=== PATIENT | female | born 1930 | race Caucasian/White ===

== ENCOUNTER 2017-04-10 11:40 | Inpatient (IN) | payer OTHER, BC ==
[2017-04-10 11:52] VITALS: BMI 26.5
[2017-04-10] MEDS ORDERED: SODIUM CHLORIDE 0.9% 1000 ML INFUS.BAG IV STA (11:52)
[2017-04-10] MEDS ORDERED: ACETAMINOPHEN 325 MG TABLET (FP) PO ONE (11:54)
[2017-04-10] MEDS ORDERED: ALBUTEROL SO4 2.5/IPRATROPIUM 0.5 INH SOL 3 ML VIAL.NEB. NEB ONE ×2 (11:55→12:03)
[2017-04-10] MEDS ORDERED: ACETAMINOPHEN 325 MG TABLET (FP) ONE (12:03)
--- NOTE | 2017-04-10 12:43 | PDOC ---
History of Present Illness <Pavan Cali - Last Filed: 04/10/17 14:18> - General History Source: Patient Exam Limitations: No Limitations - History of Present Illness Initial Comments: 04/10/17 12:39 87 yo F with /o HTN, HLD, here with son c/o cough x one week. pt states has had nausea, no vomiting. no f/c no mod factors. cough productive phlegm. subjective fevers, no chills. no change to stool. no cp no leg swelling. no h/o tobacco use. no recent admissions to hospital. no chest pain. <Brandy Crouch - Last Filed: 04/10/17 15:44> - General Chief Complaint: Respiratory Stated Complaint: COUGH Time Seen by Provider: 04/10/17 11:46 Past History <Pavan Cali - Last Filed: 04/10/17 14:18> - Past Medical History HTN: Yes Hypercholesterolemia: Yes Other medical history: GLAUCOMA, GOUT, CROW - Psycho/Social/Smoking Cessation Hx Anxiety: No Suicidal Ideation: No Smoking History: Never smoked Have you smoked in the past 12 months: No Information on smoking cessation initiated: No Hx Alcohol Use: No Drug/Substance Use Hx: No Substance Use Type: None <Brandy Crouch - Last Filed: 04/10/17 15:44> - Past Medical History Allergies/Adverse Reactions: Allergies Allergy/AdvReac Type Severity Reaction Status Date / Time amoxicillin Allergy Verified 04/10/17 11:42 Home Medications: Ambulatory Orders Allopurinol [Zyloprim -] 100 mg PO DAILY 04/10/17 Amlodipine Besylate 5 mg PO DAILY 04/10/17 Aspirin [Aspirin EC] 81 mg PO DAILY 04/10/17 Ropinirole HCl [Requip] 1 mg PO DAILY 04/10/17 Simvastatin 20 mg PO DAILY 04/10/17 Timolol 0.5% [Timoptic 0.5%] 1 drop OU BID 04/10/17 Valsartan [Diovan] 160 mg PO DAILY 04/10/17 Review of Systems - Review of Systems Constitutional: Yes: Chills, Fever Respiratory: Yes: Cough, Shortness of Breath, Wheezing, Productive cough Cardiac (ROS): No: Chest Pain, Edema Musculoskeletal: No: Joint Pain, Neck Pain Hematologic/Lymphatic: Yes: Anemia All Other Systems: Reviewed and Negative <Brandy Crouch - Last Filed: 04/10/17 15:44> *Physical Exam - Vital Signs Last Vital Signs Temp Pulse Resp BP Pulse Ox 100.6 F H 118 H 24 98/61 98 04/10/17 11:40 04/10/17 14:00 04/10/17 14:00 04/10/17 14:00 04/10/17 14:00 <Pavan Cali - Last Filed: 04/10/17 14:18> - Vital Signs Last Vital Signs Temp Pulse Resp BP Pulse Ox 100.6 F H 142 H 30 H 118/88 94 L 04/10/17 11:40 04/10/17 11:40 04/10/17 11:40 04/10/17 12:00 04/10/17 11:40 - Physical Exam General Appearance: Yes: Appropriately Dressed HEENT: positive: Normal ENT Inspection Neck: positive: Trachea midline Respiratory/Chest: positive: Crackles (bilat expiratory wheezing, crackles at left base greater. ), Wheezing Cardiovascular: positive: Regular Rhythm, Regular Rate, S1, S2, Tachycardia Gastrointestinal/Abdominal: positive: Normal Bowel Sounds, Flat, Soft. negative : Tender Extremity: positive: Normal Capillary Refill, Normal Inspection Integumentary: positive: Normal Color, Dry, Warm Neurologic: positive: Fully Oriented, Alert, Normal Mood/Affect <MikoBrandy - Last Filed: 04/10/17 15:44> ED Treatment Course - LABORATORY CBC & Chemistry Diagram: 04/10/17 11:45 04/10/17 11:45 - ADDITIONAL ORDERS Additional order review: Laboratory Results 04/10/17 04/10/17 04/10/17 13:16 12:30 11:45 INR PTT (Actin FS) VBG pH 7.36 POC VBG pCO2 47.9 POC VBG pO2 42.7 Mixed VBG HCO3 26.4 H Sodium Potassium Chloride Carbon Dioxide Anion Gap BUN Creatinine Creat Clearance w eGFR Random Glucose Lactic Acid Calcium Total Bilirubin AST ALT Alkaline Phosphatase Creatine Kinase 79 Troponin I 0.08 Total Protein Albumin Urine Color Yellow Urine Appearance Slightly Urine pH 5.0 Ur Specific [place] 1.025 Urine Protein 3+ H Urine Glucose (UA) Negative Urine Ketones Trace Urine Blood Trace-intact Urine Nitrite Negative Urine Bilirubin 1+ H Urine Urobilinogen 1.0 e.u/dl Ur Leukocyte Esterase Negative Urine RBC 3-5 Urine WBC 3-5 Ur Epithelial Cells 5-10 Amorphous Urates Moderate Hyaline Casts 0-1 04/10/17 04/10/17 04/10/17 11:45 11:45 11:45 INR 1.07 PTT (Actin FS) 27.1 VBG pH POC VBG pCO2 POC VBG pO2 Mixed VBG HCO3 Sodium 138 Potassium 4.1 Chloride 101 Carbon Dioxide 24 Anion Gap 13 BUN 29 H D Creatinine 2.0 H D Creat Clearance w eGFR 23.51 Random Glucose 219 H D Lactic Acid 1.9 Calcium 9.2 Total Bilirubin 0.8 D AST 39 D ALT 31 D Alkaline Phosphatase 80 D Creatine Kinase Troponin I Total Protein 6.8 Albumin 3.3 L Urine Color Urine Appearance Urine pH Ur Specific [place] Urine Protein Urine Glucose (UA) Urine Ketones Urine Blood Urine Nitrite Urine Bilirubin Urine Urobilinogen Ur Leukocyte Esterase Urine RBC Urine WBC Ur Epithelial Cells Amorphous Urates Hyaline Casts 04/10/17 11:45 RBC 4.39 MCV 82.8 MCHC 32.8 RDW 13.9 D MPV 8.6 D Neutrophils % Y Lymphocytes % Y - Medications Given in the ED: ED Medications Discontinued Medications Generic Name Dose Route Start Last Admin Trade Name Freq PRN Reason Stop Dose Admin Acetaminophen 650 mg 04/10/17 11:54 04/10/17 12:00 Tylenol - PO 04/10/17 11:55 650 mg ONCE ONE Administration Albuterol/Ipratropium 1 amp 04/10/17 11:55 04/10/17 12:00 Duoneb - NEB 04/10/17 11:56 1 amp ONCE ONE Administration Diltiazem HCl 15 mg 04/10/17 14:11 04/10/17 13:52 Cardizem Injection - IVPUSH 04/10/17 14:12 15 mg ONCE ONE Administration Sodium Chloride 1,315 ml 04/10/17 11:52 04/10/17 12:00 Normal Saline - IV 04/10/17 11:53 1,315 ml ONCE STA Administration Sodium Chloride 1,000 ml 04/10/17 14:11 04/10/17 14:02 Normal Saline - IV 04/10/17 14:12 1,000 ml ONCE ONE Administration Pavan Castro - Last Filed: 04/10/17 14:18> - LABORATORY CBC & Chemistry Diagram: 04/10/17 11:45 04/10/17 11:45 - RADIOLOGY Radiology Studies Ordered: Category Date Time Status CHEST X-RAY PORTABLE* [RAD] Stat Radiology 04/10/17 11:52 Ordered - Medications Given in the ED: ED Medications Discontinued Medications Generic Name Dose Route Start Last Admin Trade Name Freq PRN Reason Stop Dose Admin Acetaminophen 650 mg 04/10/17 11:54 04/10/17 12:00 Tylenol - PO 04/10/17 11:55 650 mg ONCE ONE Administration Albuterol/Ipratropium 1 amp 04/10/17 11:55 04/10/17 12:00 Duoneb - NEB 04/10/17 11:56 1 amp ONCE ONE Administration Sodium Chloride 1,315 ml 04/10/17 11:52 04/10/17 12:00 Normal Saline - IV 04/10/17 11:53 1,315 ml ONCE STA Administration <Brandy Crouch - Last Filed: 04/10/17 15:44> Medical Decision Making - Medical Decision Making 04/10/17 14:19 Dr. Mami Pascual was called regarding the patient at 2:15pm. Dr. Duglas Blanco covering [phone] <Pavan Cali - Last Filed: 04/10/17 14:18> - Medical Decision Making 04/10/17 12:53 87 yo F with h/o HTN, HLD anemia here with cough congestion and wheezing crackles on exam. differential sepsis. pna, bronchitis, effusion, kelli ekg labs trop cultures duoneb. iv hydration, ekg. will require admission. 04/10/17 15:43 d?W dr. eubanks, pt will be transferred for admission wtih afib with RVR, sepsis, pna, kassandra. <Brandy Crouch - Last Filed: 04/10/17 15:44> *DC/Admit/Observation/Transfer <Pavan Cali - Last Filed: 04/10/17 14:18> - Discharge Dispostion Admit: Yes <Brandy Crouch - Last Filed: 04/10/17 15:44> Diagnosis at time of Disposition: Sepsis, Pneumonia, Atrial fibrillation with RVR - Discharge Dispostion Disposition: TRANSFER ACUTE CARE/OTHER HOSP Condition at time of disposition: Stable - Referrals Referrals: Mami Ku MD [Primary Care Provider] -
[2017-04-10 12:57] LABS: ACTIVATED PTT 27.1 SECONDS (24.0-38.9)
[2017-04-10 13:00] LABS: ALBUMIN 3.3 g/dl (3.5-5.0); BILIRUBIN,TOTAL 0.8 mg/dl (0.2-1.0); CALCIUM 9.2 mg/dl (8.4-10.2); COCKROFT - GAULT 20.1875; TOT PROT 6.8 g/dl (6.4-8.3)
[2017-04-10 13:01] LABS: INR 1.07 (0.82-1.09)
[2017-04-10 13:17] LABS: MCH 27.2 pg (25.7-33.7); MCHC 32.8 g/dl (32.0-36.0); MEAN CELL VOLUME 82.8 fl (80-96); MEAN PLT VOLUME 8.6 fl (7.5-11.1); RDW 13.9 % (11.6-15.6); WHITE BLOOD COUNT 15.8 K/mm3 (4.0-10.8)
[2017-04-10 13:18] LABS: PLATELET COUNT 460 K/MM3 (134-434)
[2017-04-10 13:19] LABS: VENOUS BLOOD GAS HCO3 26.4 meq/L (19-25); VENOUS PH 7.36 (7.32-7.42)
[2017-04-10 13:23] LABS: URINE APPEARANCE Slightly; URINE BILIRUBIN 1+ (NEGATIVE); URINE BLOOD Trace-intact (NEGATIVE); URINE COLOR YELLOW; URINE GLUCOSE (UA) Negative (NEGATIVE); URINE KETONE Trace (NEGATIVE); URINE LEUK ESTERASE Negative (NEGATIVE); URINE NITRITE Negative (NEGATIVE); URINE PROTEIN 3+ (NEGATIVE); URINE UROBILINOGEN 1.0 E.U/dl (0.2-1.0)
[2017-04-10] MEDS ORDERED: LEVOFLOXACIN 750 MG IVPB 150 ML IVPB ONE ×2 (13:26→13:28)
[2017-04-10 13:34] LABS: TROPONIN I (DFP) 0.08 ng/ml (0.03-0.50)
[2017-04-10 13:48] LABS: URINE HYALINE CAST 0-1 /lpf
[2017-04-10] MEDS ORDERED: dilTIAZem HCL 50 MG/10 ML - 10 ML VIAL ONE (13:49)
[2017-04-10] MEDS ORDERED: dilTIAZem HCL 50 MG/10 ML - 10 ML VIAL IVPUSH ONE ×2 (14:11→15:40)
[2017-04-10] MEDS ORDERED: SODIUM CHLORIDE 0.9% 1000 ML INFUS.BAG IV ONE (14:11)
[2017-04-10 14:36] LABS: PLATELET ESTIMATE SLT INCREASED (NORMAL)
[2017-04-10] MEDS ORDERED: HEPARIN NA (PORCINE) 5,000 UNITS/ML 1ML VIAL IVPUSH PRN (16:53)
[2017-04-10] MEDS: HEPARIN NA (PORCINE) 5,000 UNITS/ML 1ML VIAL IVPUSH PRN (17:00)
[2017-04-10] MEDS ORDERED: HEPARIN INFUSION - 500 ML IVPB SCH (17:00)
[2017-04-10] MEDS ORDERED: HEPARIN NA (PORCINE) 5,000 UNITS/ML 1ML VIAL ONE (17:02)
[2017-04-10] MEDS ORDERED: HEPARIN INFUSION - 500 ML IVPB ONE (17:02)
--- NOTE | 2017-04-10 19:29 | PN ---
<Alda Hannah - Last Filed: 04/10/17 19:29> Teaching Attending Note Name of Resident: Cb Evans ATTENDING PHYSICIAN STATEMENT I saw and evaluated the patient. I reviewed the resident's note and discussed the case with the resident. I agree with the resident's findings and plan as documented. SUBJECTIVE: OBJECTIVE: ASSESSMENT AND PLAN: <Caryn Pearce - Last Filed: 04/11/17 04:06> Teaching Attending Note ATTENDING PHYSICIAN STATEMENT I saw and evaluated the patient. I reviewed the resident's note and discussed the case with the resident. I agree with the resident's findings and plan as documented. SUBJECTIVE: 87 yo F with a PMHx of HTN, HLD who presents with cough Patient denies fevers and chills. Denies chest pain or chest pressure. Cough with clear sputum for one week. Immunizations are up to date. Rhinorrhea, hoarse voice, increased sob for last week particularly on exertion. Upon evaluation in the ED patient was found to have AFIB. OBJECTIVE: Last Vital Signs Temp Pulse Resp BP Pulse Ox 98.3 F 99 H 18 122/58 97 04/11/17 02:03 04/11/17 02:03 04/11/17 02:03 04/11/17 02:03 04/10/17 21:00 GENERAL: Awake, alert, and fully oriented, in no acute distress HEENT: Atraumatic. PERRLA, EOMI. Moist mucosa. No JVD LUNGS: No distress, speaks full sentences, Decreased breath sounds at bases HEART: Irregular rate and rhythm, normal S1 and S2, no murmurs, rubs or gallops , peripheral pulses normal and equal bilaterally. ABDOMEN: Soft, nontender, normoactive bowel sounds. No guarding, no rebound. No masses EXTREMITIES: Normal inspection, Normal range of motion, no edema. No clubbing or Cyanosis. NEUROLOGICAL: Cranial nerves II through XII grossly intact. Normal speech, no focal sensorimotor deficits SKIN: Warm, Dry, normal turgor, no rashes or lesions noted. CBCD WBC 15.8 K/mm3 (4.0-10.8) H D 04/10/17 11:45 RBC 4.39 M/mm3 (3.60-5.2) 04/10/17 11:45 Hgb 11.9 GM/dl (10.7-15.3) 04/10/17 11:45 Hct 36.4 % (32.4-45.2) 04/10/17 11:45 MCV 82.8 fl (80-96) 04/10/17 11:45 MCHC 32.8 g/dl (32.0-36.0) 04/10/17 11:45 RDW 13.9 % (11.6-15.6) D 04/10/17 11:45 Plt Count 460 K/MM3 (134-434) H D 04/10/17 11:45 MPV 8.6 fl (7.5-11.1) D 04/10/17 11:45 CMP Sodium 138 mmol/L (136-145) 04/10/17 11:45 Potassium 4.1 mmol/L (3.5-5.1) 04/10/17 11:45 Chloride 101 mmol/L (98-107) 04/10/17 11:45 Carbon Dioxide 24 mmol/L (22-28) 04/10/17 11:45 Anion Gap 13 (8-16) 04/10/17 11:45 BUN 29 mg/dl (7-18) H D 04/10/17 11:45 Creatinine 2.0 mg/dl (0.6-1.3) H D 04/10/17 11:45 Creat Clearance w eGFR 23.51 (>60) 04/10/17 11:45 Calcium 9.2 mg/dl (8.4-10.2) 04/10/17 11:45 Total Bilirubin 0.8 mg/dl (0.2-1.0) D 04/10/17 11:45 AST 39 U/L (10-42) D 04/10/17 11:45 ALT 31 U/L (10-40) D 04/10/17 11:45 Alkaline Phosphatase 80 U/L (32-92) D 04/10/17 11:45 Total Protein 6.8 g/dl (6.4-8.3) 04/10/17 11:45 Albumin 3.3 g/dl (3.5-5.0) L 04/10/17 11:45 CXR No acute process ASSESSMENT AND PLAN 87 yo F with a PMHx of HTN, HLD who presents with continued fever. 1.) AFIB s/p cardizem in ED -Heparin GTT -Echo complete -Consider noac -Would continue with beta rei for rate control -CHADS2 VASC4 -Trend troponin/ECG -Check TSH 2.) Cough. Differential diagnosis possible pneumonia vs upper respiratory infection -Increased leukocytosis -Borderline lactic acid. Trend -Follow bilateral CXR in AM -s/p 1 dose of levaquin -Follow up cultures 3.) ABDOUL -Urine lytes -Hold Valsartan -Avoid nephrotoxins 4.) HTN -Hold ARB -Continue amlodipine Documentation is prepared by Caryn Pearce acting as medical secretary teacher for Alda Hannah D.O.
--- NOTE | 2017-04-10 20:13 | HP ---
CHIEF COMPLAINT: cough PCP: Dr. Mami Niño (has not seen Dr. Niño yet - pt used to see Dr. Arteaga) HISTORY OF PRESENT ILLNESS: 87 y/o F w/PMH of HTN, HLD, glaucoma, restless leg syndrome presents to the ER for worsening cough. Cough started 1 week ago and has been progressively worsening. Cough is associated with clear sputum, runny nose, headaches, hoarseness in voice. Pt states her grand-daughter was in contact with her 1 week ago who was also sick. Cough was improved with robitussin at home. Pt states she also has had SOB over the last week worsened with exertion and some dizziness this morning. Over the last 1 week pt has not been eating much according to son since she has been feeling sick. Son states when she gets sick she usually does not eat or drink much. She denies N/V/F/C, diarrhea, blood in stool, dysuria, palpitations, heart-racing, chest pain, peripheral swelling, facial pressure, abd pain, generalized weakness. Pt states her immunizations are up to date. At baseline, pt lives alone. ER course was notable for: (1) Cardizem IV 10+15 mg, NS, CXR, duo-neb, tylenol (2) (3) Recent Travel: [place] 1 month ago PAST MEDICAL HISTORY: HTN, HLD, glaucoma, restless leg syndrome PAST SURGICAL HISTORY: Cataract surgery 40-45 years ago, both eyes Social History: Smoking: never Alcohol: 2-3 beers per day Drugs: denies Family History: non-contributory Allergies amoxicillin Allergy (Verified 04/10/17 11:42) HOME MEDICATIONS: Home Medications Medication Instructions Recorded Allopurinol [Zyloprim -] 100 mg PO DAILY 04/10/17 Amlodipine Besylate 5 mg PO DAILY 04/10/17 Aspirin [Aspirin EC] 81 mg PO DAILY 04/10/17 Ropinirole HCl [Requip] 1 mg PO DAILY 04/10/17 Simvastatin 20 mg PO DAILY 04/10/17 Timolol 0.5% [Timoptic 0.5%] 1 drop OU BID 04/10/17 Valsartan [Diovan] 160 mg PO DAILY 04/10/17 REVIEW OF SYSTEMS CONSTITUTIONAL: +loss of appetite Absent: fever, chills, diaphoresis, generalized weakness, malaise HEENT: +rhinorrhea, hoarseness of voice, headache Absent: throat pain, throat swelling, difficulty swallowing, mouth swelling, facial pressure CARDIOVASCULAR: Absent: chest pain, syncope, palpitations, irregular heart rate, peripheral edema RESPIRATORY: +cough w/clear sputum, sob with exertion Absent: cough, orthopnea GASTROINTESTINAL: Absent: abdominal pain, nausea, vomiting, diarrhea, constipation, hematochezia GENITOURINARY: Absent: dysuria, frequency, hematuria NEUROLOGIC: +headache, dizziness Absent: seizure, mental status changes, bladder or bowel incontinence PSYCHIATRIC: Absent: anxiety, depression Vital Signs Temperature 97.8 F 04/10/17 18:00 Pulse Rate 122 H 04/10/17 18:00 Respiratory Rate 24 04/10/17 18:00 Blood Pressure 119/64 04/10/17 18:00 O2 Sat by Pulse Oximetry (%) 98 04/10/17 16:19 PHYSICAL EXAMINATION GENERAL: Awake, alert, and fully oriented, in no acute distress. HEAD: Normal with no signs of trauma. EYES: extraocular movements intact, sclera anicteric, conjunctiva clear. No lid lag. EARS, NOSE, THROAT: Ears normal, nares patent NECK: Normal range of motion, supple LUNGS: +L basilar crackles. no wheezing. No accessory muscle use. HEART: Irregularly irregular, tachycardic, no murmurs appreciated ABDOMEN: Soft, nontender, not distended, normoactive bowel sounds, no guarding, no rebound, no masses. No hepatomegaly or splenomegaly. MUSCULOSKELETAL: Normal range of motion at all joints. No bony deformities or tenderness. No CVA tenderness. LOWER EXTREMITIES: warm, well-perfused. No calf tenderness. No peripheral edema. NEUROLOGICAL: Normal speech. Gait not observed. PSYCHIATRIC: Cooperative. Good eye contact. Appropriate mood and affect. SKIN: Warm, dry CBCD WBC 15.8 K/mm3 (4.0-10.8) H D 04/10/17 11:45 RBC 4.39 M/mm3 (3.60-5.2) 04/10/17 11:45 Hgb 11.9 GM/dl (10.7-15.3) 04/10/17 11:45 Hct 36.4 % (32.4-45.2) 04/10/17 11:45 MCV 82.8 fl (80-96) 04/10/17 11:45 MCHC 32.8 g/dl (32.0-36.0) 04/10/17 11:45 RDW 13.9 % (11.6-15.6) D 04/10/17 11:45 Plt Count 460 K/MM3 (134-434) H D 04/10/17 11:45 MPV 8.6 fl (7.5-11.1) D 04/10/17 11:45 CMP Sodium 138 mmol/L (136-145) 04/10/17 11:45 Potassium 4.1 mmol/L (3.5-5.1) 04/10/17 11:45 Chloride 101 mmol/L (98-107) 04/10/17 11:45 Carbon Dioxide 24 mmol/L (22-28) 04/10/17 11:45 Anion Gap 13 (8-16) 04/10/17 11:45 BUN 29 mg/dl (7-18) H D 04/10/17 11:45 Creatinine 2.0 mg/dl (0.6-1.3) H D 04/10/17 11:45 Creat Clearance w eGFR 23.51 (>60) 04/10/17 11:45 Random Glucose 219 mg/dl (74-106) H D 04/10/17 11:45 Calcium 9.2 mg/dl (8.4-10.2) 04/10/17 11:45 Total Bilirubin 0.8 mg/dl (0.2-1.0) D 04/10/17 11:45 AST 39 U/L (10-42) D 04/10/17 11:45 ALT 31 U/L (10-40) D 04/10/17 11:45 Alkaline Phosphatase 80 U/L (32-92) D 04/10/17 11:45 Total Protein 6.8 g/dl (6.4-8.3) 04/10/17 11:45 Albumin 3.3 g/dl (3.5-5.0) L 04/10/17 11:45 CARDIAC ENZYMES Creatine Kinase 79 IU/L (26-140) 04/10/17 11:45 Troponin I 0.08 ng/ml (0.03-0.50) 04/10/17 11:45 Urine Test Results Urine Color Yellow 04/10/17 12:30 Urine Appearance Slightly 04/10/17 12:30 Urine pH 5.0 (4.5-8) 04/10/17 12:30 Ur Specific [place] 1.025 (1.005-1.025) 04/10/17 12:30 Urine Protein 3+ (NEGATIVE) H 04/10/17 12:30 Urine Glucose (UA) Negative (NEGATIVE) 04/10/17 12:30 Urine Ketones Trace (NEGATIVE) 04/10/17 12:30 Urine Blood Trace-intact (NEGATIVE) 04/10/17 12:30 Urine Nitrite Negative (NEGATIVE) 04/10/17 12:30 Urine Bilirubin 1+ (NEGATIVE) H 04/10/17 12:30 Ur Leukocyte Esterase Negative (NEGATIVE) 04/10/17 12:30 Urine RBC 3-5 /hpf (0-3) 04/10/17 12:30 Urine WBC 3-5 (3-5) 04/10/17 12:30 Ur Epithelial Cells 5-10 /HPF 04/10/17 12:30 Imaging: CXR: (portable) - cardiomegaly. No acute intrathoracic abnormality seen. EKG: A-fib at 140 bpm, no ST segment changes noted Active Medications Amlodipine Besylate (Norvasc -) 5 mg PO DAILY ROSEANNE Atorvastatin Calcium (Lipitor -) 10 mg PO HS ROSEANNE Guaifenesin (Mucinex -) 600 mg PO BID ROSEANNE Heparin Sodium (Porcine) (Heparin -) 1,000 unit IVPUSH PRN PRN PRN Reason: Heparin Heparin Sodium (Porcine) (Heparin -) 5,000 unit IVPUSH PRN PRN PRN Reason: Heparin Last Admin: 04/10/17 17:00 Dose: 5,000 unit Heparin Sodium/Dextrose (Heparin Infusion -) 500 mls @ 16 mls/hr IVPB TITR ROSEANNE ; 800 UNITS/HR PRN Reason: Protocol Last Admin: 04/10/17 17:00 Dose: 16 mls/hr Sodium Chloride (Normal Saline -) 1,000 mls @ 50 mls/hr IV ASDIR ROSEANNE Metoprolol Tartrate (Lopressor -) 25 mg PO BID ROSEANNE Ropinirole HCl (Requip -) 1 mg PO HS ROSEANNE Timolol Maleate (Timoptic 0.5%) 1 drop OU BID ROSEANNE ASSESSMENT/PLAN: 87 y/o F w/PMH of HTN, HLD, glaucoma, restless leg syndrome presents to the ER for worsening cough. Found to be in new onset afib w/RVR and ABDOUL. -Afib w/RVR, new onset -Given Diltiazem IV in ER -Metoprolol 25 mg bid, consider toprol XL in AM (for rate control) -c/w heparin drip; [id number]: 4 -monitor PTT; FOBT (-) -consider NoAc -f/u TSH, ECHO, Mg -Cardiology consulted -ABDOUL -secondary to dehydration, pt has not been eating or drinking much over last week -Cr 2 (baseline 1.2) -Gentle hydration - NS @ 50 ml/hr -monitor for signs of fluid overload -f/u urine lytes for FeNa, monitor Cr -avoid nephrotoxins -Cough secondary to PNA vs CHF vs URI -Pt given levaquin in ER, will get CXR PA/Lat in AM to check for PNA -will hold off on Abx at this time as pt is covered with levaquin for now. If signs of PNA on CXR in AM, restart abx -f/u BNP -Mucinex -f/u BCx, UCx, trend lactic acid -HTN -added metoprolol for rate control -c/w amlodipine 5 mg po qd -hold valsartan -HLD -Atorvastatin 10 mg po qhs (equivalent to 20 mg simvastatin) -Restless leg syndrome -Ropinirole 1 mg po qhs -Glaucoma -c/w timolol eyedrops -DVT ppx -on heparin drip -FEN -NS @ 50 ml/hr -Monitor electrolytes, replete as necessary -Cardiac diet -Dispo: -Admit to tele Visit type - Emergency Visit Emergency Visit: Yes ED Registration Date: 04/10/17 Care time: The patient presented to the Emergency Department on the above date and was hospitalized for further evaluation of their emergent condition. - New Patient This patient is new to me today: Yes Date on this admission: 04/11/17 - Critical Care Critical Care patient: No
[2017-04-10] MEDS ORDERED: SODIUM CHLORIDE 1,000 ML IV SCH (20:45)
[2017-04-10] MEDS: guaiFENesin 600 MG TABLET.ER (FP) PO SCH (21:15)
[2017-04-10] MEDS: ATORVASTATIN CA 10 MG TABLET (FP) PO SCH (21:15)
[2017-04-10] MEDS: METOPROLOL TARTRATE 25 MG TABLET (FP) PO SCH ×2 (21:15→22:48)
[2017-04-10] MEDS: rOPINIRole HCL 1 MG TABLET (FP) PO SCH (22:47)
[2017-04-10] MEDS: TIMOLOL 0.5% OPHTHALMIC SOL 5 ML BOTTLE OU SCH (22:54)
[2017-04-11] MEDS: METOPROLOL TARTRATE 25 MG TABLET (FP) PO SCH ×3 (05:28→21:07)
[2017-04-11 06:53] LABS: BASOPHIL 0.2 % (0-2.0); EOSINOPHIL 0.5 % (0-4.5); MCH 27.5 pg (25.7-33.7); MCHC 32.4 g/dl (32.0-36.0); MEAN CELL VOLUME 84.8 fl (80-96); MEAN PLT VOLUME 7.7 fl (7.5-11.1); NEUTROPHILS 77.9 % (42.8-82.8); PLATELET COUNT 363 K/MM3 (134-434); RDW 14.5 % (11.6-15.6); WHITE BLOOD COUNT 16.3 K/mm3 (4.0-10.0)
[2017-04-11 07:30] LABS: ALBUMIN 2.7 g/dl (3.4-5.0); BILIRUBIN,TOTAL 0.4 mg/dL (0.2-1.0); CALCIUM 8.5 mg/dL (8.5-10.1); CREATININE 1.3 mg/dL (0.55-1.02); TOT PROT 5.8 g/dl (6.4-8.2)
[2017-04-11 09:18] LABS: MAGNESIUM 1.9 mg/dL (1.8-2.4)
[2017-04-11 09:26] LABS: THYROID STIMULATING HORMONE 1.41 uIU/ml (0.358-3.74)
[2017-04-11] MEDS ORDERED: dilTIAZem HCL 50 MG/10 ML - 10 ML VIAL IVPUSH ONE (09:42)
--- NOTE | 2017-04-11 09:51 | CON.CARD ---
Consult Consult Specialty:: Cardiology Referred by:: Hospitalist (Patient of Dr. Herb Niño [facility]) Reason for Consultation:: Cardiac evaluation - History of Present Illness Chief Complaint: New onset AF with RVR and cough History of Present Illness: Patient is an 87 year old female with underlying history of hypertension and hypercholesterolemia now presents with productive cough with white sputum and now in atrial fibrillation with rapid ventricular response. She denies chest pain except for some tightness with cough, denies shortness of breath. She denies nausea, vomiting, diarrhea or abdominal pain. She denies fever or chills. She denies headache or lightheadedness. She was given Cardizem IVP in ER and was started on Lopressor for rate control. Cardiology consultation was called for further evaluation. - History Source History Provided By: Patient, Medical Record Limitations to Obtaining History: No Limitations - Past Medical History Cardio/Vascular: Yes: AFIB (New onset), HTN, Hyperlipdemia Pulmonary: No: Asthma, COPD ...: No Musculoskeletal: Yes: Osteoarthritis Endocrine: No: Diabetes Mellitus Additional Medical History: Glaucoma - Past Surgical History Past Surgical History: Yes: Hysterectomy Additional Surgical History: Glaucoma surgery - Alcohol/Substance Use Hx Alcohol Use: Yes (2 CANS BEER DAILY) History of Substance Use: reports: None - Smoking History Smoking history: Never smoked Have you smoked in the past 12 months: No Home Medications - Allergies Allergies/Adverse Reactions: Allergies Allergy/AdvReac Type Severity Reaction Status Date / Time amoxicillin Allergy Verified 04/10/17 11:42 - Home Medications Home Medications: Ambulatory Orders Allopurinol [Zyloprim -] 100 mg PO DAILY 04/10/17 Amlodipine Besylate 5 mg PO DAILY 04/10/17 Aspirin [Aspirin EC] 81 mg PO DAILY 04/10/17 Ropinirole HCl [Requip] 1 mg PO DAILY 04/10/17 Simvastatin 20 mg PO DAILY 04/10/17 Timolol 0.5% [Timoptic 0.5%] 1 drop OU BID 04/10/17 Valsartan [Diovan] 160 mg PO DAILY 04/10/17 Review of Systems - Review of Systems Constitutional: denies: Chills, Fever Cardiovascular: reports: Palpitations. denies: Chest Pain, Shortness of Breath Respiratory: reports: Cough. denies: Hemoptysis, Orthopnea, PND, SOB, SOB on Exertion, Wheezing Gastrointestinal: denies: Abdominal Pain, Constipation, Diarrhea, Melena, Nausea , Rectal Bleeding, Vomiting Musculoskeletal: reports: Joint Pain Neurological: denies: Dizziness, Headache, Seizure, Syncope, Unsteady Gait, Weakness Vital Signs: Vital Signs Temperature 98.5 F 04/11/17 05:30 Pulse Rate 137 H 04/11/17 05:30 Respiratory Rate 18 04/11/17 05:30 Blood Pressure 136/63 04/11/17 05:30 O2 Sat by Pulse Oximetry (%) 97 04/10/17 21:00 Neck: Yes: Supple Respiratory: Yes: Diminished Gastrointestinal: Yes: Normal Bowel Sounds, Soft. No: Tenderness Cardiovascular: Yes: Pulse Irregular JVD: No Carotid Bruit: No PMI: Non-Displaced Heart Sounds: Yes: S1, S2. No: Gallop Murmur: Yes: Systolic Murmur, Grade 1 Edema: No - Other Data Labs, Other Data: CBC, BMP 04/11/17 05:35 04/11/17 05:35 INR, PTT INR 1.07 (0.82-1.09) 04/10/17 11:45 Troponin, BNP 04/11/17 04/11/17 05:35 05:35 B-Natriuretic Peptide 23582.11 H Cancelled Laboratory Results - last 24 hr 04/10/17 04/10/17 04/10/17 11:45 11:45 11:45 WBC 15.8 H D RBC 4.39 Hgb 11.9 Hct 36.4 MCV 82.8 MCHC 32.8 RDW 13.9 D Plt Count 460 H D MPV 8.6 D Neutrophils % 73.0 Lymphocytes % 12.0 Monocytes % 11.0 H Eosinophils % Basophils % Band Neutrophils 4.0 Platelet Estimate Slt increased Platelet Comment Slt plt clumping INR 1.07 PTT (Actin FS) 27.1 VBG pH POC VBG pCO2 POC VBG pO2 Mixed VBG HCO3 Sodium 138 Potassium 4.1 Chloride 101 Carbon Dioxide 24 Anion Gap 13 BUN 29 H D Creatinine 2.0 H D Creat Clearance w eGFR 23.51 Random Glucose 219 H D Lactic Acid Calcium 9.2 Magnesium Total Bilirubin 0.8 D AST 39 D ALT 31 D Alkaline Phosphatase 80 D Creatine Kinase Troponin I B-Natriuretic Peptide Total Protein 6.8 Albumin 3.3 L TSH Urine Color Urine Appearance Urine pH Ur Specific [place] Urine Protein Urine Glucose (UA) Urine Ketones Urine Blood Urine Nitrite Urine Bilirubin Urine Urobilinogen Ur Leukocyte Esterase Urine RBC Urine WBC Ur Epithelial Cells Amorphous Urates Hyaline Casts Stool Occult Blood 04/10/17 04/10/17 04/10/17 11:45 11:45 12:30 WBC RBC Hgb Hct MCV MCHC RDW Plt Count MPV Neutrophils % Lymphocytes % Monocytes % Eosinophils % Basophils % Band Neutrophils Platelet Estimate Platelet Comment INR PTT (Actin FS) VBG pH POC VBG pCO2 POC VBG pO2 Mixed VBG HCO3 Sodium Potassium Chloride Carbon Dioxide Anion Gap BUN Creatinine Creat Clearance w eGFR Random Glucose Lactic Acid 1.9 Calcium Magnesium Total Bilirubin AST ALT Alkaline Phosphatase Creatine Kinase 79 Troponin I 0.08 B-Natriuretic Peptide Total Protein Albumin TSH Urine Color Yellow Urine Appearance Slightly Urine pH 5.0 Ur Specific [place] 1.025 Urine Protein 3+ H Urine Glucose (UA) Negative Urine Ketones Trace Urine Blood Trace-intact Urine Nitrite Negative Urine Bilirubin 1+ H Urine Urobilinogen 1.0 e.u/dl Ur Leukocyte Esterase Negative Urine RBC 3-5 Urine WBC 3-5 Ur Epithelial Cells 5-10 Amorphous Urates Moderate Hyaline Casts 0-1 Stool Occult Blood 04/10/17 04/11/17 04/11/17 23:00 05:35 05:35 WBC 16.3 H RBC 3.85 Hgb 10.6 L Hct 32.7 MCV 84.8 MCHC 32.4 RDW 14.5 Plt Count 363 MPV 7.7 Neutrophils % 77.9 Lymphocytes % 8.0 Monocytes % 13.4 H Eosinophils % 0.5 Basophils % 0.2 Band Neutrophils Platelet Estimate Platelet Comment INR PTT (Actin FS) 69.0 H VBG pH POC VBG pCO2 POC VBG pO2 Mixed VBG HCO3 Sodium 144 Potassium 3.7 Chloride 108 H Carbon Dioxide 24 Anion Gap 12 BUN 22 H Creatinine 1.3 H Creat Clearance w eGFR 38.66 Random Glucose 119 H Lactic Acid Calcium 8.5 Magnesium 1.9 Total Bilirubin 0.4 AST 31 ALT 30 Alkaline Phosphatase 82 Creatine Kinase Troponin I B-Natriuretic Peptide 96227.11 H Total Protein 5.8 L Albumin 2.7 L TSH 1.41 Urine Color Urine Appearance Urine pH Ur Specific [place] Urine Protein Urine Glucose (UA) Urine Ketones Urine Blood Urine Nitrite Urine Bilirubin Urine Urobilinogen Ur Leukocyte Esterase Urine RBC Urine WBC Ur Epithelial Cells Amorphous Urates Hyaline Casts Stool Occult Blood Atrial fibrillation with RVR, T wave abnormality in lateral leads Echo: Pending Imaging - Results Chest X-ray: Report Reviewed (Cardiomegaly, otherwise unremarkable) EKG: Report Reviewed Problem List - Problems (1) Atrial fibrillation with RVR Code(s): I48.91 - UNSPECIFIED ATRIAL FIBRILLATION (2) HTN (hypertension) Code(s): I10 - ESSENTIAL (PRIMARY) HYPERTENSION Qualifiers: Hypertension type: essential hypertension Qualified Code(s): I10 - Essential (primary) hypertension (3) Hypercholesterolemia Code(s): E78.00 - PURE HYPERCHOLESTEROLEMIA, UNSPECIFIED (4) Osteoarthritis Code(s): M19.90 - UNSPECIFIED OSTEOARTHRITIS, UNSPECIFIED SITE Qualifiers: Osteoarthritis location: knee Osteoarthritis type: unspecified Laterality: right Qualified Code(s): M17.11 - Unilateral primary osteoarthritis, right knee Assessment/Plan 1. Atrial fibrillation with RVR 2. Hypertension 3. Hypercholesterolemia 4. Cough productive suggests URI 5. Renal insufficiency - diminished cr PLAN: 1. Continue Heparin drip. 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 Uptitrate Lopressor for rate control 3. Cardizem IVP for added rate control. May consider switching Norvasc to Cardizem if rate control poses an issue 4. Transthoracic echocardiography to assess LV and valvular function 5. Checkl TFT 6. Cough suppressant and Mucinex 7. Consider further rhythm control measures with FABIENNE +/- synchronized cardioversion if clinically indicated, but can be done as outpatient. 8. Monitor renal function and electrolytes Further plans are to follow Amandeep Alonso MD
[2017-04-11] MEDS: guaiFENesin 600 MG TABLET.ER (FP) PO SCH ×2 (09:53→21:07)
[2017-04-11] MEDS: TIMOLOL 0.5% OPHTHALMIC SOL 5 ML BOTTLE OU SCH ×2 (09:54→21:08)
[2017-04-11] MEDS ORDERED: amLODIPine BESYLATE 5 MG TABLET (FP) PO SCH (10:00)
[2017-04-11] MEDS: APIXABAN 5 MG TABLET PO SCH ×2 (10:51→21:07)
--- NOTE | 2017-04-11 10:58 | EKG ---
Test Reason : Blood Pressure : / mmHG Vent. Rate : 142 BPM Atrial Rate : 133 BPM P-R Int : 000 ms QRS Dur : 114 ms QT Int : 302 ms P-R-T Axes : 000 -51 108 degrees QTc Int : 464 ms ATRIAL FIBRILLATION WITH RAPID VENTRICULAR RESPONSE LEFT AXIS DEVIATION ABNORMAL ECG NO PREVIOUS ECGS AVAILABLE Confirmed by RA TURNER, ARMANDO ([id number]) on 04/11/2017 10:57:37 AM Referred By: CUBA SONG Confirmed By:ARMANDO KNAPP MD
--- NOTE | 2017-04-11 11:29 | PN ---
Teaching Attending Note Name of Resident: Livia Sharma ATTENDING PHYSICIAN STATEMENT I saw and evaluated the patient. I reviewed the resident's note and discussed the case with the resident. I agree with the resident's findings and plan as documented. SUBJECTIVE:states her cough has improved and is not productive. cough is worse at night and when attempting to lay down. denies using more pillows then normal (2 pillows every night) or dyspnea on exertion, had pedal edema last week which self resolved. GAMEZ has resolved. has had these symptoms for over a week. no assoc fever or chills. denies palpitations or tachycardia, CP, SOB. denies recent travel OBJECTIVE: Last Vital Signs Temp Pulse Resp BP Pulse Ox 99.0 F 132 H 20 140/80 97 04/11/17 10:04/11/17 10:04/11/17 10:04/11/17 10:04/10/17 21:00 General NAD HEENT no sinus tenderness, no pharynx exudate or erythema CV S1 S2 tachycardic irregular LUngs CTA B/L no wheezing or crackles Extremities no pedal edema ASSESSMENT AND PLAN: 87yo F wtih PMH HTN, dyslipidemia and RLS presented to the ER with persistent cough and SOB 1. Cough- can be due to volume overload (elevated BNP, pedal edema and possible orthopnea {cough when laying down} vs viral infection. repeat CXR pending. will check Echo. received levaquin once in ER. will consider continuing based on repeat CXR. cough supressent 2. New onset Afib- likely due to infection vs volume overload. TSH WNL. rate currently not controlled. increase metoprolol to TID dosing. cardizem prn to obtain HR <120. echo pending. cardio consulted. [id number] 4. started on hep ggt. counseled on risks/benefits of fpc a/c with cardiology and agreed to initiation of NOAC. will start eliquis 5mg BID and d/c ggt. 3. ABDOUL- likely dehydration. hold nephrottoxic agents. received IVF in ER> will d /c. monitor cr function 4. dyslipidemia- cont statin 5. RLS- cont ropinirole 6. DVT ppx- hep ggt/NOAC
--- NOTE | 2017-04-11 11:42 | MSN ---
Progress Note (short form) - Note Progress Note: Subjective: Patient is an 87 year old female who came to the ER yesterday for recurrent productive cough with clear sputum, a runny nose, headache, SOB and dizziness. While in the ER she was found to have atrial fibrillation and acute kidney injury. The patient was seen today at the bedside. The patient was alert and oriented and able to answer question. patient stated that she felt better today. She stated that her cough was still present with clear sputum, runny nose. The patient denies any SOB, headache or dizziness at the present moment. When recalling previous days the patient stated that she had ankle swelling for the past week that had resolved in the last day. The patient also denies any chest pain, nausea, or vomiting. She has been able to tolerate diet without incidence and has been having regular bowel moments and urination. Vital Signs Period Temp Pulse Resp BP Sys/Kraus Pulse Ox Last 24 Hr 97.7 F-100.6 F 99-145 18-30 98-140/58-93 94-98 Exam: General: Patient is alert and oriented and in no acute distress. Heart: Elevated rate with no appreciable murmurs, rubs, or gallops. Lungs: crackles were heard in all lung jewell with prominence in the posterior lower lung jewell. Extremities: 5/5 muscle strength and 2/4 pulses in all extremities with intact sensation. No swelling or edema is present in the lower extremities at this time. Abdomen: Patient displayed normoactive bowel sounds, no guarding or distention and no tenderness to palpation. Laboratory Results - last 24 hr 04/10/17 04/10/17 04/10/17 11:45 11:45 11:45 WBC 15.8 H D RBC 4.39 Hgb 11.9 Hct 36.4 MCV 82.8 MCHC 32.8 RDW 13.9 D Plt Count 460 H D MPV 8.6 D Neutrophils % 73.0 Lymphocytes % 12.0 Monocytes % 11.0 H Eosinophils % Basophils % Band Neutrophils 4.0 Platelet Estimate Slt increased Platelet Comment Slt plt clumping INR 1.07 PTT (Actin FS) 27.1 VBG pH POC VBG pCO2 POC VBG pO2 Mixed VBG HCO3 Sodium 138 Potassium 4.1 Chloride 101 Carbon Dioxide 24 Anion Gap 13 BUN 29 H D Creatinine 2.0 H D Creat Clearance w eGFR 23.51 Random Glucose 219 H D Lactic Acid Calcium 9.2 Magnesium Total Bilirubin 0.8 D AST 39 D ALT 31 D Alkaline Phosphatase 80 D Creatine Kinase Troponin I B-Natriuretic Peptide Total Protein 6.8 Albumin 3.3 L TSH Urine Color Urine Appearance Urine pH Ur Specific [place] Urine Protein Urine Glucose (UA) Urine Ketones Urine Blood Urine Nitrite Urine Bilirubin Urine Urobilinogen Ur Leukocyte Esterase Urine RBC Urine WBC Ur Epithelial Cells Amorphous Urates Hyaline Casts Stool Occult Blood 04/10/17 04/10/17 04/10/17 11:45 11:45 12:30 WBC RBC Hgb Hct MCV MCHC RDW Plt Count MPV Neutrophils % Lymphocytes % Monocytes % Eosinophils % Basophils % Band Neutrophils Platelet Estimate Platelet Comment INR PTT (Actin FS) VBG pH POC VBG pCO2 POC VBG pO2 Mixed VBG HCO3 Sodium Potassium Chloride Carbon Dioxide Anion Gap BUN Creatinine Creat Clearance w eGFR Random Glucose Lactic Acid 1.9 Calcium Magnesium Total Bilirubin AST ALT Alkaline Phosphatase Creatine Kinase 79 Troponin I 0.08 B-Natriuretic Peptide Total Protein Albumin TSH Urine Color Yellow Urine Appearance Slightly Urine pH 5.0 Ur Specific [place] 1.025 Urine Protein 3+ H Urine Glucose (UA) Negative Urine Ketones Trace Urine Blood Trace-intact Urine Nitrite Negative Urine Bilirubin 1+ H Urine Urobilinogen 1.0 e.u/dl Ur Leukocyte Esterase Negative Urine RBC 3-5 Urine WBC 3-5 Ur Epithelial Cells 5-10 Amorphous Urates Moderate Hyaline Casts 0-1 Stool Occult Blood 04/10/17 04/10/17 04/10/17 13:16 17:20 21:00 WBC RBC Hgb Hct MCV MCHC RDW Plt Count MPV Neutrophils % Lymphocytes % Monocytes % Eosinophils % Basophils % Band Neutrophils Platelet Estimate Platelet Comment INR PTT (Actin FS) VBG pH 7.36 POC VBG pCO2 47.9 POC VBG pO2 42.7 Mixed VBG HCO3 26.4 H Sodium Potassium Chloride Carbon Dioxide Anion Gap BUN Creatinine Creat Clearance w eGFR Random Glucose Lactic Acid 0.9 Calcium Magnesium Total Bilirubin AST ALT Alkaline Phosphatase Creatine Kinase Troponin I B-Natriuretic Peptide Total Protein Albumin TSH Urine Color Urine Appearance Urine pH Ur Specific [place] Urine Protein Urine Glucose (UA) Urine Ketones Urine Blood Urine Nitrite Urine Bilirubin Urine Urobilinogen Ur Leukocyte Esterase Urine RBC Urine WBC Ur Epithelial Cells Amorphous Urates Hyaline Casts Stool Occult Blood Negative 04/10/17 04/11/17 04/11/17 23:00 05:35 05:35 WBC 16.3 H RBC 3.85 Hgb 10.6 L Hct 32.7 MCV 84.8 MCHC 32.4 RDW 14.5 Plt Count 363 MPV 7.7 Neutrophils % 77.9 Lymphocytes % 8.0 Monocytes % 13.4 H Eosinophils % 0.5 Basophils % 0.2 Band Neutrophils Platelet Estimate Platelet Comment INR PTT (Actin FS) 69.0 H VBG pH POC VBG pCO2 POC VBG pO2 Mixed VBG HCO3 Sodium 144 Potassium 3.7 Chloride 108 H Carbon Dioxide 24 Anion Gap 12 BUN 22 H Creatinine 1.3 H Creat Clearance w eGFR 38.66 Random Glucose 119 H Lactic Acid Calcium 8.5 Magnesium 1.9 Total Bilirubin 0.4 AST 31 ALT 30 Alkaline Phosphatase 82 Creatine Kinase Troponin I B-Natriuretic Peptide 49237.11 H Total Protein 5.8 L Albumin 2.7 L TSH 1.41 Urine Color Urine Appearance Urine pH Ur Specific [place] Urine Protein Urine Glucose (UA) Urine Ketones Urine Blood Urine Nitrite Urine Bilirubin Urine Urobilinogen Ur Leukocyte Esterase Urine RBC Urine WBC Ur Epithelial Cells Amorphous Urates Hyaline Casts Stool Occult Blood 04/11/17 04/11/17 04/11/17 05:35 05:35 10:00 WBC RBC Hgb Hct MCV MCHC RDW Plt Count MPV Neutrophils % Lymphocytes % Monocytes % Eosinophils % Basophils % Band Neutrophils Platelet Estimate Platelet Comment INR PTT (Actin FS) 39.0 H D VBG pH POC VBG pCO2 POC VBG pO2 Mixed VBG HCO3 Sodium Potassium Chloride Carbon Dioxide Anion Gap BUN Creatinine Creat Clearance w eGFR Random Glucose Lactic Acid 0.9 Calcium Magnesium Cancelled Total Bilirubin AST ALT Alkaline Phosphatase Creatine Kinase Troponin I B-Natriuretic Peptide Cancelled Total Protein Albumin TSH Urine Color Urine Appearance Urine pH Ur Specific [place] Urine Protein Urine Glucose (UA) Urine Ketones Urine Blood Urine Nitrite Urine Bilirubin Urine Urobilinogen Ur Leukocyte Esterase Urine RBC Urine WBC Ur Epithelial Cells Amorphous Urates Hyaline Casts Stool Occult Blood Current Medications Generic Name Dose Route Start Last Admin Trade Name Freq PRN Reason Stop Dose Admin Amlodipine Besylate 5 mg 04/11/17 10:00 04/11/17 09:53 Norvasc - PO 5 mg DAILY ROSEANNE Administration Apixaban 5 mg 04/11/17 10:15 04/11/17 10:51 Eliquis - PO 5 mg BID ROSEANNE Administration Atorvastatin Calcium 10 mg 04/10/17 22:00 04/10/17 21:15 Lipitor - PO 10 mg HS ROSEANNE Administration Guaifenesin 600 mg 04/10/17 22:00 04/11/17 09:53 Mucinex - PO 600 mg BID ROSEANNE Administration Guaifenesin 10 ml 04/11/17 10:59 Robitussin Dm - PO Q4H PRN COUGH Heparin Sodium (Porcine) 1,000 unit 04/10/17 16:53 Heparin - IVPUSH PRN PRN Heparin Heparin Sodium (Porcine) 5,000 unit 04/10/17 16:53 04/10/17 17:00 Heparin - IVPUSH 5,000 unit PRN PRN Administration Heparin Heparin Sodium/Dextrose 500 mls @ 16 mls/hr 04/10/17 17:00 04/10/17 17:00 Heparin Infusion - IVPB 16 mls/hr TITR ROSEANNE Administration Protocol 800 UNITS/HR Sodium Chloride 1,000 mls @ 50 mls/hr 04/10/17 20:45 04/10/17 22:46 Normal Saline - IV 50 mls/hr ASDIR ROSEANNE Administration Metoprolol Tartrate 25 mg 04/11/17 14:00 Lopressor - PO TID ROSEANNE Ropinirole HCl 1 mg 04/10/17 22:00 04/10/17 22:47 Requip - PO 1 mg HS ROSEANNE Administration Timolol Maleate 1 drop 04/10/17 22:00 04/11/17 09:54 Timoptic 0.5% OU 1 drop BID ROSEANNE Administration Imaging: Chest x-ray (04/10/17)- cardiomegaly, no acute intrathoracic pathology present EKG (04/10/17)- Shows atrial fibrillation with rate of 145 PA and Lateral x-ray (04/11/17)- ordered, awaiting results awaiting results on blood culture and urine culture Assessment and Plan: Patient is an 87 year old female with pat medical history of HTN, HLD, glaucoma , restless leg syndrome, who presented to the ER for recurring cough found to have atrial fibrillation and Acute kidney injury. 1) Atrial fibrillation - [id number] VASc score of 4 - atrial fibrillation still present with heart rate >145 - Discontinue heparin 500mls, @16mls/hr and replace with Eliquis 5mg PO - continue rate control with metoprolol from 50mg PO, changed from 25 mg PO. - goal BPM <120 - Echocardiography ordered due to suspicion of CHF. - continue monitoring on telemetry. 2) ABDOUL secondary to dehydration - continue normal saline 1000 mls @ 50 mls/hr IV - continue to monitor for any signs of fluid overload 3) Cough possibly secondary to pneumonia or CHF - awaiting results of PA and lateral X-ray, to determine if Antibiotics are to be continued - received levoquin in the ER yesterday, discontinued after dose. 4) HTN - continue metoprolol 50 mg PO BID - continue at home amlodipine 5mg PO daily 5) HLD - Continue at home atorvastatin 10 mg PO qhs 6) Restless leg syndrome - Continue ropinrole 1mg PO qhs 7) glaucoma - continue at home timolol eye drops DVT prophylaxis -continue eloquis 5mg PO F/E/N - NS 1000mls @50 mls/hr - continue cardiac diet
[2017-04-11] MEDS: guaiFENesin/D-METHORPHAN HB 10 ML UNIT-DOSE CUPS PO PRN (12:27)
[2017-04-11] MEDS: HEPARIN NA (PORCINE) 5,000 UNITS/ML 1ML VIAL IVPUSH PRN (12:28)
--- NOTE | 2017-04-11 16:53 | PN ---
Physical Exam: SUBJECTIVE: Patient seen and examined by me at bedside. Patient reports her cough has been worsening the last week but today the cough has improved. She denies any productive sputum. She does report cough worsening only when laying flat down and this morning she needed assistance raising her bed higher. Otherwise, patient denies fever, chills, nausea, vomiting, abdominal pain, chest pain, shortness of breath. OBJECTIVE: Vital Signs Period Temp Pulse Resp BP Sys/Kraus Pulse Ox Last 24 Hr 97.7 F-99.0 F 99-145 18-20 122-140/58-91 97-97 GENERAL: The patient is awake, alert, and fully oriented, in no acute distress. HEAD: Normal with no signs of trauma. EYES: Sclera anicteric, conjunctiva clear. ENT: Oropharynx clear without exudates, moist mucous membranes. LUNGS: Breath sounds equal, clear to auscultation bilaterally, no wheezes, no crackles, no accessory muscle use. HEART: Tachycardic, irregularly irregular rhythm, normal S1 and S2 without murmur, rub or gallop. ABDOMEN: Soft, nontender, nondistended, normoactive bowel sounds, no guarding. EXTREMITIES: No peripheral edema. NEUROLOGICAL: Normal speech, no facial droop. Motor strength 5/5. Sensory intact Laboratory Results - last 24 hr 04/10/17 04/10/17 04/11/17 21:00 23:00 05:35 WBC RBC Hgb Hct MCV MCHC RDW Plt Count MPV Neutrophils % Lymphocytes % Monocytes % Eosinophils % Basophils % PTT (Actin FS) 69.0 H Sodium 144 Potassium 3.7 Chloride 108 H Carbon Dioxide 24 Anion Gap 12 BUN 22 H Creatinine 1.3 H Creat Clearance w eGFR 38.66 Random Glucose 119 H Lactic Acid 0.9 Calcium 8.5 Magnesium 1.9 Total Bilirubin 0.4 AST 31 ALT 30 Alkaline Phosphatase 82 B-Natriuretic Peptide 61485.11 H Total Protein 5.8 L Albumin 2.7 L TSH 1.41 04/11/17 04/11/17 04/11/17 05:35 05:35 05:35 WBC 16.3 H RBC 3.85 Hgb 10.6 L Hct 32.7 MCV 84.8 MCHC 32.4 RDW 14.5 Plt Count 363 MPV 7.7 Neutrophils % 77.9 Lymphocytes % 8.0 Monocytes % 13.4 H Eosinophils % 0.5 Basophils % 0.2 PTT (Actin FS) Sodium Potassium Chloride Carbon Dioxide Anion Gap BUN Creatinine Creat Clearance w eGFR Random Glucose Lactic Acid 0.9 Calcium Magnesium Cancelled Total Bilirubin AST ALT Alkaline Phosphatase B-Natriuretic Peptide Cancelled Total Protein Albumin TSH 04/11/17 10:00 WBC RBC Hgb Hct MCV MCHC RDW Plt Count MPV Neutrophils % Lymphocytes % Monocytes % Eosinophils % Basophils % PTT (Actin FS) 39.0 H D Sodium Potassium Chloride Carbon Dioxide Anion Gap BUN Creatinine Creat Clearance w eGFR Random Glucose Lactic Acid Calcium Magnesium Total Bilirubin AST ALT Alkaline Phosphatase B-Natriuretic Peptide Total Protein Albumin TSH Active Medications Generic Name Dose Route Start Last Admin Trade Name Freq PRN Reason Stop Dose Admin Amlodipine Besylate 5 mg 04/11/17 10:00 04/11/17 09:53 Norvasc - PO 5 mg DAILY ROSEANNE Administration Apixaban 5 mg 04/11/17 10:15 04/11/17 10:51 Eliquis - PO 5 mg BID ROSEANNE Administration Atorvastatin Calcium 10 mg 04/10/17 22:00 04/10/17 21:15 Lipitor - PO 10 mg HS ROSEANNE Administration Guaifenesin 600 mg 04/10/17 22:00 04/11/17 09:53 Mucinex - PO 600 mg BID ROSEANNE Administration Guaifenesin 10 ml 04/11/17 10:59 04/11/17 12:27 Robitussin Dm - PO 10 ml Q4H PRN Administration COUGH Heparin Sodium (Porcine) 1,000 unit 04/10/17 16:53 Heparin - IVPUSH PRN PRN Heparin Heparin Sodium (Porcine) 5,000 unit 04/10/17 16:53 04/11/17 12:28 Heparin - IVPUSH 5,000 unit PRN PRN Administration Heparin Heparin Sodium/Dextrose 500 mls @ 16 mls/hr 04/10/17 17:00 04/11/17 12:28 Heparin Infusion - IVPB 950 units/hr TITR ROSEANNE Titration Protocol 800 UNITS/HR Metoprolol Tartrate 25 mg 04/11/17 14:00 04/11/17 13:54 Lopressor - PO 25 mg TID ROSEANNE Administration Ropinirole HCl 1 mg 04/10/17 22:00 04/10/17 22:47 Requip - PO 1 mg HS ROSEANNE Administration Timolol Maleate 1 drop 04/10/17 22:00 04/11/17 09:54 Timoptic 0.5% OU 1 drop BID ROSEANNE Administration Imaging: Chest x-ray (04/10/17)- cardiomegaly, no acute intrathoracic pathology present EKG (04/10/17)- A.fib @ 145 BPM, no ST-T elevations or depressions. PA and Lateral x-ray (04/11/17): Large heart. Sclerotic knob. Some atelectatic changes in the retrocardiac area. ASSESSMENT/PLAN: Patient is an 87 year old female with a PMHx of HTN, HLD, Glaucoma, restless leg syndrome who presented for worsening cough and URI symptoms. Patient was found to have new onset of A.fib with RVR and ABDOUL. Patient admitted for further monitoring and management. New Onset of A.fib w/RVR-uncontrolled -[id number] 4 -Likely secondary to infection vs Fluid overload -Metoprolol increased to 25mg TID -Cardizem given in ED. Continue as PRN -Heparin ggt given but will switch to NOAC -Eliquis 5mg BID started, as per cardiology -TSH wnl -ECHO wnl with no LV dysfunction -Continue CARDIAC Monitoring -Cardiology consult appreciated Cough secondary to Possible PNA vs. CHF vs. URI -BNP elevated at 11,000 but can be due to ABDOUL or old age with pedal edema -Two Chest X-rays reveal no pneumonia, consolidation -ECHO reveals no LV dysfunction -Received Levaquin in the ED -Will monitor for fevers and WBC's for further abx -Blood cultures NGTD -Urine cultures pending -Continue Robitussin and Mucinex ABDOUL -Secondary to Dehydration -Received IV fluids in the ED -Avoid Nephrotoxic medications -Continue to monitor creatinine HTN -Continue Metoprolol 25mg TID -Norvasc 5mg daily -Hold Valsartan due to nephrotoxicity -Continue to monitor BP HLD -Continue Atorvastatin 10mg daily Restless Leg Syndrome -Ropinirole 1 mg po qhs Glaucoma -Continue Timolol eyedrops F/E/N -On no Fluids -Electrolytes wnl -Sodium controlled diet Prophylaxis -Eliquis 5mg BID Disposition -Continues to have Tachycardia. Will continue cardiac monitoring Visit type - Emergency Visit Emergency Visit: Yes ED Registration Date: 04/10/17 Care time: The patient presented to the Emergency Department on the above date and was hospitalized for further evaluation of their emergent condition. - New Patient This patient is new to me today: Yes Date on this admission: 04/13/17 - Critical Care Critical Care patient: No
[2017-04-11] MEDS ORDERED: PT OWN MED DRAWER 7, Y5N ONE (20:09)
[2017-04-11] MEDS: ATORVASTATIN CA 10 MG TABLET (FP) PO SCH (21:07)
[2017-04-11] MEDS: rOPINIRole HCL 1 MG TABLET (FP) PO SCH (21:07)
[2017-04-12] MEDS ORDERED: METOPROLOL TARTRATE 25 MG TABLET (FP) PO ONE ×2 (02:44→06:45)
[2017-04-12] MEDS: guaiFENesin/D-METHORPHAN HB 10 ML UNIT-DOSE CUPS PO PRN ×3 (02:54→22:13)
--- NOTE | 2017-04-12 03:14 | HOSP ---
Subjective - Review of Symptoms Events since last encounter: Pt is becoming disoriented at times and attempts to get out of bed. She also c/ o of her heart racing but denies chest pain. When pt tries to sit up, HR jumps to 140s-160s according to nurse. I explained to pt that she needs to use call dao if she needs to get up and to ask for assistance before moving out of bed. She understands that she needs to stay in bed and to rest to keep HR down at this time. -Metoprolol 25 mg po once ordered to control HR. -Jez ordered as pt continues to try and get out of bed. Nurse to use jez vest if necessary as pt's mental status is waxing and waning at this time. -O2 saturation 89-90% on 3L NC, will place on 50% venti-mask -pt refused venti-mask. Will increase O2 via NC at this time Physical Examination Vital Signs: Vital Signs Temperature 98.3 F 04/12/17 01:59 Pulse Rate 108 H 04/12/17 01:59 Respiratory Rate 20 04/12/17 01:59 Blood Pressure 116/69 04/12/17 01:59 O2 Sat by Pulse Oximetry (%) 99 04/11/17 21:00 Labs: CBC, BMP 04/11/17 05:35 04/11/17 05:35 Visit type - Emergency Visit Emergency Visit: Yes ED Registration Date: 04/10/17 Care time: The patient presented to the Emergency Department on the above date and was hospitalized for further evaluation of their emergent condition. - New Patient This patient is new to me today: No - Critical Care Critical Care patient: No
[2017-04-12] MEDS: METOPROLOL TARTRATE 25 MG TABLET (FP) PO SCH ×4 (05:09→23:13)
[2017-04-12] MEDS ORDERED: dilTIAZem HCL 50 MG/10 ML - 10 ML VIAL IVPUSH ONE ×2 (06:45→18:36)
[2017-04-12 07:00] LABS: MCH 27.2 pg (25.7-33.7); MCHC 32.1 g/dl (32.0-36.0); MEAN CELL VOLUME 84.7 fl (80-96); RDW 14.7 % (11.6-15.6); WHITE BLOOD COUNT 19.5 K/mm3 (4.0-10.0)
[2017-04-12 07:01] LABS: MEAN PLT VOLUME 7.7 fl (7.5-11.1); PLATELET COUNT 446 K/MM3 (134-434)
[2017-04-12 07:21] LABS: CALCIUM 9.4 mg/dL (8.5-10.1); CREATININE 1.3 mg/dL (0.55-1.02)
--- NOTE | 2017-04-12 08:13 | PN ---
Progress Note, Physician History of Present Illness: Rapid afib with palpitations overnight, meds uptitrated. - Current Medication List Current Medications: Active Medications Apixaban (Eliquis -) 5 mg PO BID [facility] Last Admin: 04/11/17 21:07 Dose: 5 mg Atorvastatin Calcium (Lipitor -) 10 mg PO HS [facility] Last Admin: 04/11/17 21:07 Dose: 10 mg Guaifenesin (Mucinex -) 600 mg PO BID [facility] Last Admin: 04/11/17 21:07 Dose: 600 mg Guaifenesin (Robitussin Dm -) 10 ml PO Q4H PRN PRN Reason: COUGH Last Admin: 04/12/17 02:54 Dose: 10 ml Metoprolol Tartrate (Lopressor -) 25 mg PO Q6HPO [facility] Ropinirole HCl (Requip -) 1 mg PO HS [facility] Last Admin: 04/11/17 21:07 Dose: 1 mg Timolol Maleate (Timoptic 0.5%) 1 drop OU BID [facility] Last Admin: 04/11/17 21:08 Dose: 1 drop - Objective Vital Signs: Vital Signs Temperature 98 F 04/12/17 05:50 Pulse Rate 135 H 04/12/17 07:00 Respiratory Rate 20 04/12/17 05:50 Blood Pressure 118/78 04/12/17 07:00 O2 Sat by Pulse Oximetry (%) 99 04/11/17 21:00 Constitutional: Yes: No Distress, Calm, Thin Cardiovascular: Yes: Tachycardia, Pulse Irregular Respiratory: Yes: Regular, Diminished, On Nasal O2 Gastrointestinal: Yes: Normal Bowel Sounds, Soft Edema: No Labs: CBC, BMP 04/12/17 05:48 04/12/17 05:48 INR, PTT INR 1.07 (0.82-1.09) 04/10/17 11:45 Problem List - Problems (1) Atrial fibrillation with RVR Code(s): I48.91 - UNSPECIFIED ATRIAL FIBRILLATION (2) HTN (hypertension) Code(s): I10 - ESSENTIAL (PRIMARY) HYPERTENSION Qualifiers: Hypertension type: essential hypertension Qualified Code(s): I10 - Essential (primary) hypertension (3) Hypercholesterolemia Code(s): E78.00 - PURE HYPERCHOLESTEROLEMIA, UNSPECIFIED (4) Diastolic dysfunction Code(s): I51.9 - HEART DISEASE, UNSPECIFIED (5) Leukocytosis Code(s): D72.829 - ELEVATED WHITE BLOOD CELL COUNT, UNSPECIFIED Qualifiers: Leukocytosis type: unspecified Qualified Code(s): D72.829 - Elevated white blood cell count, unspecified (6) Chronic kidney disease Code(s): N18.9 - CHRONIC KIDNEY DISEASE, UNSPECIFIED Qualifiers: Chronic kidney disease stage: stage 2 (mild) Qualified Code(s): N18.2 - Chronic kidney disease, stage 2 (mild) Assessment/Plan 04/11/2017 Echo: Normal LV size and fxn, mild LAE, mild MR, TR, RVSP 30-40 mmHg 1. Persistent trial fibrillation with RVR 2. Hypertension 3. Hypercholesterolemia 4. CKD 5. Diastolic dysfunction PLAN: 1. Continue Eliquis 5 mg BID, Lipitor 10 qhs 2. Uptitrated Lopressor 25 q6 for rate control 3. Cardizem IVP for added rate control. May add Cardizem for additional rate control. 4. Consider further rhythm control measures with FABIENNE +/- synchronized cardioversion if clinically indicated, but can be done as outpatient. 5. Monitor renal function and electrolytes
[2017-04-12] MEDS ORDERED: AZITHROMYCIN 250 MG TABLET (FP) PO ONE (08:50)
[2017-04-12] MEDS: APIXABAN 5 MG TABLET PO SCH ×2 (09:34→22:10)
[2017-04-12] MEDS: TIMOLOL 0.5% OPHTHALMIC SOL 5 ML BOTTLE OU SCH ×2 (09:35→22:15)
[2017-04-12] MEDS: guaiFENesin 600 MG TABLET.ER (FP) PO SCH ×2 (09:43→22:12)
[2017-04-12] MEDS ORDERED: LEVOFLOXACIN 500 MG TABLET (FP) PO SCH (10:00)
[2017-04-12] MEDS ORDERED: CEFTRIAXONE 50 ML IVPB SCH (10:00)
--- NOTE | 2017-04-12 10:38 | PN ---
Teaching Attending Note Name of Resident: Livia Sharma ATTENDING PHYSICIAN STATEMENT I saw and evaluated the patient. I reviewed the resident's note and discussed the case with the resident. I agree with the resident's findings and plan as documented. SUBJECTIVE:continues to have non productive cough but mild improvement. denies CP, SOB,fever, chills, N/V/C/D as per report pt became confused and agitated in the evening. pt has no recollection of this. OBJECTIVE: Last Vital Signs Temp Pulse Resp BP Pulse Ox 98.2 F 98 H 20 157/71 99 04/12/17 09:25 04/12/17 09:25 04/12/17 09:25 04/12/17 09:25 04/11/17 21:00 General NAD CV S1 S2 tachycardic irregular LUngs mild rhonchi diffusely. no crackles. poor lung expansion Extremities no pedal edema ASSESSMENT AND PLAN: 87yo F wtih PMH HTN, dyslipidemia and RLS presented to the ER with persistent cough and SOB 1. Cough- possibly acute bronchitis. no pleural effusion or infiltrate on repeat CXR. will start azithromycin given persistant symptoms over a week and worsening leukocytosis. echo negative for CHF. cough supressent 2. New onset Afib- likely due to infection. HR not controlled. received total of 75mg of metoprolol this AM and now improved. now metoprolol 25mg Q6H. will titrate to optimize HR control. d/c norvasc to allow more room for HR control. on eliquis. cardio on board. 3. Acute delerium vs - will cont to monitor closely. haldol prn for agitiation 4. ABDOUL- likely dehydration. hold nephrottoxic agents.stable. call PMD to obtain baseline Cr 5. dyslipidemia- cont statin 6. RLS- cont ropinirole 7. DVT ppx- eliquis
--- NOTE | 2017-04-12 10:43 | PN ---
Physical Exam: SUBJECTIVE: Patient seen and examined by me at bedside. Overnight events noted. Patient became agitated and was in A.fib with a rate between 140's-160' s. Metoprolol 25 mg po once with no resolution. Systems Accountant ordered Cardizem 10mg IV once and heart rate went down to 90's. Patient this morning was awake, alert and not agitated. She reports her cough is getting better and only has clear sputum. She denies fever, chills, nausea, vomiting, abdominal pain, chest pain, palpitations, shortness of breath. OBJECTIVE: Vital Signs Period Temp Pulse Resp BP Sys/Kraus Pulse Ox Last 24 Hr 97.9 F-98.8 F 98-135 18-20 116-157/68-91 99 GENERAL: The patient is awake, alert, and fully oriented, in no acute distress.. LUNGS: Rhonchi's throughout lung bases bilaterally, no wheezes, no crackles, no accessory muscle use. HEART: Tachycardic, irregularly irregular rhythm, normal S1 and S2 without murmur, rub or gallop. ABDOMEN: Soft, nontender, nondistended, normoactive bowel sounds, no guarding. EXTREMITIES: No peripheral edema. Chronic venous stasis of bilateral lower extremities NEUROLOGICAL: Normal speech, no facial droop. Laboratory Results - last 24 hr 04/11/17 04/12/17 04/12/17 10:00 05:48 05:48 WBC 19.5 H RBC 4.16 Hgb 11.3 Hct 35.2 MCV 84.7 MCHC 32.1 RDW 14.7 Plt Count 446 H D MPV 7.7 PTT (Actin FS) 39.0 H D 36.6 H Sodium Potassium Chloride Carbon Dioxide Anion Gap BUN Creatinine Random Glucose Calcium 04/12/17 05:48 WBC RBC Hgb Hct MCV MCHC RDW Plt Count MPV PTT (Actin FS) Sodium 142 Potassium 3.9 Chloride 107 Carbon Dioxide 25 Anion Gap 10 BUN 20 H Creatinine 1.3 H Random Glucose 130 H Calcium 9.4 Active Medications Generic Name Dose Route Start Last Admin Trade Name Freq PRN Reason Stop Dose Admin Apixaban 5 mg 04/11/17 10:15 04/12/17 09:34 Eliquis - PO 5 mg BID ROSEANNE Administration Atorvastatin Calcium 10 mg 04/10/17 22:00 04/11/17 21:07 Lipitor - PO 10 mg HS ROSEANNE Administration Guaifenesin 600 mg 04/10/17 22:00 04/12/17 09:43 Mucinex - PO 600 mg BID ROSEANNE Administration Guaifenesin 10 ml 04/11/17 10:59 04/12/17 09:43 Robitussin Dm - PO 10 ml Q4H PRN Administration COUGH Haloperidol 5 mg 04/12/17 10:25 Haldol Injection (Fast Acting) - IM Q4H PRN AGITATION Azithromycin 250 mls @ 250 mls/hr 04/13/17 10:00 Zithromax 500mg Ivpb (Pre-Docked) IVPB DAILY ROSEANNE Metoprolol Tartrate 25 mg 04/12/17 12:00 Lopressor - PO Q6HPO ROSEANNE Ropinirole HCl 1 mg 04/10/17 22:00 04/11/17 21:07 Requip - PO 1 mg HS ROSEANNE Administration Timolol Maleate 1 drop 04/10/17 22:00 04/12/17 09:35 Timoptic 0.5% OU 1 drop BID ROSEANNE Administration Imaging: Chest x-ray (04/10/17)- cardiomegaly, no acute intrathoracic pathology present EKG (04/10/17)- A.fib @ 145 BPM, no ST-T elevations or depressions. PA and Lateral x-ray (04/11/17): Large heart. Sclerotic knob. Some atelectatic changes in the retrocardiac area. ASSESSMENT/PLAN: Patient is an 87 year old female with a PMHx of HTN, HLD, Glaucoma, restless leg syndrome who presented for worsening cough and URI symptoms. Patient was found to have new onset of A.fib with RVR and ABDOUL. Patient admitted for further monitoring and management. New Onset of A.fib w/RVR-uncontrolled -[id number] -Likely secondary to infection -Metoprolol increased to 25mg QID for heart rate control -Continue Eliquis 5mg BID -Cardizem 10mg given overnight due to A.fib with RVR. Will continue PRN -ECHO wnl with no LV dysfunction -Continue CARDIAC Monitoring -Cardiology consult appreciated Cough secondary to Possible PNA vs. URI -BNP elevated at 11,000 but can be due to ABDOUL or old age with pedal edema -Two Chest X-rays reveal no pneumonia, consolidation -ECHO reveals no LV dysfunction -Started Azithromycin 500mg Daily -Will monitor for fevers and WBC's for further abx -Blood cultures NGTD -Urine cultures pending -Continue Robitussin and Mucinex Acute Delirium vs. -Haldol 5mg PRN ordered ABDOUL -Last creatinine 1.2 (05/2016) -Secondary to Dehydration -Received IV fluids in the ED -Avoid Nephrotoxic medications -Continue to monitor creatinine HTN -Continue Metoprolol 25mg QID -Norvasc Discontinued due to increase Metoprolol for rate control and want to avoid hypotension. -Hold Valsartan due to nephrotoxicity -Continue to monitor BP HLD -Continue Atorvastatin 10mg daily Restless Leg Syndrome -Ropinirole 1 mg po qhs Glaucoma -Continue Timolol eyedrops F/E/N -On no Fluids -Electrolytes wnl -Sodium controlled diet Prophylaxis -Eliquis 5mg BID Disposition -Continues to have Tachycardia with overnight event of A.fib with RVR. Will continue cardiac monitoring. Visit type - Emergency Visit Emergency Visit: Yes ED Registration Date: 04/10/17 Care time: The patient presented to the Emergency Department on the above date and was hospitalized for further evaluation of their emergent condition. - New Patient This patient is new to me today: No - Critical Care Critical Care patient: No
--- NOTE | 2017-04-12 10:53 | MSN ---
Progress Note (short form) - Note Progress Note: Subjective: Previous night her mental status became altered. Nurse on floor stated that the patient was claiming to see her who was talking to her in the room. the patient attempted to get out of bed and her heart rate became elevated. The patient was administered 25 mg PO of metoprolol with no resolution of symptoms. She was then administered diltiazem 10 mg IV push and the rate reduced to 129 bpm. Today the patient was alert and oriented and able to answer questions. The patient was showing no signs of altered mental status and was able top recall why and where she was. She stated that her cough is improving and it feels like "it is all coming out". Her cough is productive with clear sputum. Patient is continuing to experience hoarness of her voice but no sore throat. The patient stated having moderate amount of pleuritic chest pain on the left side in the mid axially line under the breast that she attributes to coughing. She complains of moderate shortness of breath when laying down that is unchanged since her admission. patient his having no trouble tolerating her diet but states that she is having signs of constipation. The patient denies any fever, chills, nauseas, vomiting, diarrhea or headache. Vital Signs Period Temp Pulse Resp BP Sys/Kraus Pulse Ox Last 24 Hr 97.9 F-98.8 F 98-135 18-20 116-157/68-91 99 Exam- General- Alert and oriented in no acute distress Sinus- no pressure in the frontal or maxillary sinuses upon palpation Neck- skin is supple, no lymphadenopathy Heart- irregularly irregular rhythm with no murmur, rubs, or gallops Lungs- Rhonchi heard in all lung jewell upon auscultation Extremities- 4/5 muscle strength and 2/4 pulse in all extremities with intact sensation. no edema or swelling in the lower extremities. Abdomen- no guarding or distention. normoactive bowels sounds and no tenderness to palpation in any of the four quadrants Laboratory Results - last 24 hr 04/11/17 04/12/17 04/12/17 10:00 05:48 05:48 WBC 19.5 H RBC 4.16 Hgb 11.3 Hct 35.2 MCV 84.7 MCHC 32.1 RDW 14.7 Plt Count 446 H D MPV 7.7 PTT (Actin FS) 39.0 H D 36.6 H Sodium Potassium Chloride Carbon Dioxide Anion Gap BUN Creatinine Random Glucose Calcium 04/12/17 05:48 WBC RBC Hgb Hct MCV MCHC RDW Plt Count MPV PTT (Actin FS) Sodium 142 Potassium 3.9 Chloride 107 Carbon Dioxide 25 Anion Gap 10 BUN 20 H Creatinine 1.3 H Random Glucose 130 H Calcium 9.4 Current Medications Generic Name Dose Route Start Last Admin Trade Name Freq PRN Reason Stop Dose Admin Apixaban 5 mg 04/11/17 10:15 04/12/17 09:34 Eliquis - PO 5 mg BID ROSEANNE Administration Atorvastatin Calcium 10 mg 04/10/17 22:00 04/11/17 21:07 Lipitor - PO 10 mg HS ROSEANNE Administration Guaifenesin 600 mg 04/10/17 22:00 04/12/17 09:43 Mucinex - PO 600 mg BID ROSEANNE Administration Guaifenesin 10 ml 04/11/17 10:59 04/12/17 09:43 Robitussin Dm - PO 10 ml Q4H PRN Administration COUGH Haloperidol 5 mg 04/12/17 10:25 Haldol Injection (Fast Acting) - IM Q4H PRN AGITATION Azithromycin 250 mls @ 250 mls/hr 04/13/17 10:00 Zithromax 500mg Ivpb (Pre-Docked) IVPB DAILY ROSEANNE Metoprolol Tartrate 25 mg 04/12/17 12:00 Lopressor - PO Q6HPO ROSEANNE Ropinirole HCl 1 mg 04/10/17 22:00 04/11/17 21:07 Requip - PO 1 mg HS ROSEANNE Administration Timolol Maleate 1 drop 04/10/17 22:00 04/12/17 09:35 Timoptic 0.5% OU 1 drop BID ROSEANNE Administration Imaging: Chest x-ray (04/10/17)- cardiomegaly, no acute intrathoracic pathology present EKG (04/10/17)- Shows atrial fibrillation with rate of 145 PA and Lateral x-ray (04/11/17)- no acute infiltrate or failure observed. Echocardiogram (04/11/17)- left ventricular size is nomral, small pericardial effusion Assessment and Plan: Patient is an 87 year old female with pat medical history of HTN, HLD, glaucoma , restless leg syndrome, who presented to the ER for recurring cough found to have atrial fibrillation and Acute kidney injury. 1) Atrial fibrillation - [id number] VASc score of 4 - atrial fibrillation still present with heart rate 80-90 bpm - continue Eliquis 5mg PO - continue Metoprol 25 mg PO q6hrs for rate control. Changed from metoprolol 25mg PO TID. - goal BPM <120 - continue monitoring on telemetry. 2) ABDOUL secondary to dehydration - Improving - creatinine 1.3, with base line creatinine in may of 2016 of 1.2 - continue to monitor creatinine values 3) Cough possibly secondary to pneumonia or CHF - chest x-ray PA and lateral X-ray showed no signs of acute infiltrate or failure. - stated on azithromycin 500mg, 250 mls @ 250mls/hr IVPB for suspected bronchitis 4) HTN - continue metoprolol 25 mg PO q6hrs - discontinued at home amlodipine 5mg PO daily 5) HLD - Continue at home atorvastatin 10 mg PO qhs 6) Restless leg syndrome - Continue ropinrole 1mg PO qhs 7) glaucoma - continue at home timolol eye drops DVT prophylaxis -continue eloquis 5mg PO F/E/N - continue cardiac diet
[2017-04-12] MEDS: HALOPERIDOL LACTATE 5 MG/ML IM PRN ×2 (11:42→22:12)
[2017-04-12] MEDS ORDERED: PT OWN MED DRAWER 7, Y5N ONE (22:08)
[2017-04-12] MEDS: ATORVASTATIN CA 10 MG TABLET (FP) PO SCH (22:10)
[2017-04-12] MEDS: rOPINIRole HCL 1 MG TABLET (FP) PO SCH (22:15)
[2017-04-13] MEDS: guaiFENesin/D-METHORPHAN HB 10 ML UNIT-DOSE CUPS PO PRN ×3 (03:33→21:15)
[2017-04-13] MEDS: METOPROLOL TARTRATE 25 MG TABLET (FP) PO SCH ×3 (05:40→17:29)
[2017-04-13 07:41] LABS: CALCIUM 9.2 mg/dL (8.5-10.1); COCKROFT - GAULT 33.643; CREATININE 1.2 mg/dL (0.55-1.02); MCH 27.1 pg (25.7-33.7); MCHC 32.1 g/dl (32.0-36.0); MEAN CELL VOLUME 84.6 fl (80-96); PLATELET COUNT 444 K/MM3 (134-434); RDW 14.5 % (11.6-15.6); WHITE BLOOD COUNT 14.7 K/mm3 (4.0-10.0)
[2017-04-13] MEDS: APIXABAN 5 MG TABLET PO SCH ×2 (09:33→21:15)
[2017-04-13] MEDS: guaiFENesin 600 MG TABLET.ER (FP) PO SCH ×2 (09:33→21:15)
[2017-04-13] MEDS: AZITHROMYCIN 250 MG TABLET (FP) PO SCH (09:34)
[2017-04-13] MEDS: TIMOLOL 0.5% OPHTHALMIC SOL 5 ML BOTTLE OU SCH ×2 (09:34→21:25)
[2017-04-13] MEDS ORDERED: AZITHROMYCIN IVPB 250 ML IVPB SCH (10:00)
--- NOTE | 2017-04-13 12:52 | PN ---
Teaching Attending Note Name of Resident: Livia Sharma ATTENDING PHYSICIAN STATEMENT I saw and evaluated the patient. I reviewed the resident's note and discussed the case with the resident. I agree with the resident's findings and plan as documented. SUBJECTIVE:continues to have cough but no longer productive. denies CP, palpitation, N/V/C/D OBJECTIVE: Last Vital Signs Temp Pulse Resp BP Pulse Ox 98.2 F 114 H 18 118/66 97 04/13/17 08:48 04/13/17 09:25 04/13/17 08:48 04/13/17 08:48 04/13/17 09:25 General NAD CV S1 S2 tachycardic irregular LUngs mild rhonchi diffusely. no crackles. poor lung expansion Extremities no pedal edema ASSESSMENT AND PLAN: 87yo F wtih PMH HTN, dyslipidemia and RLS presented to the ER with persistent cough and SOB 1. Cough- likely acute bronchitis. on azithromycin day 2. minor relief with robitussin will switch to with codeine. on mucinex. order chest PT. 2. New onset Afib- likely due to infection. Rate improved but not controlled. 2 episodes yesterday where HR >140 responded to cardizem IVP. will start standing dose of cardizem to improve HR. cont to monitor. on eliquis. cardio on board. 3. Acute delerium vs - will cont to monitor closely. haldol prn for agitiation 4. ABDOUL- likely dehydration. hold nephrottoxic agents. now at baseline. 5. dyslipidemia- cont statin 6. RLS- cont ropinirole 7. DVT ppx- eliquis
--- NOTE | 2017-04-13 12:55 | PN ---
Progress Note, Physician History of Present Illness: Rapid afib with palpitations overnight despite meds uptitration. - Current Medication List Current Medications: Active Medications Apixaban (Eliquis -) 5 mg PO BID [facility] Last Admin: 04/13/17 09:33 Dose: 5 mg Atorvastatin Calcium (Lipitor -) 10 mg PO HS [facility] Last Admin: 04/12/17 22:10 Dose: 10 mg Azithromycin (Zithromax -) 500 mg PO DAILY [facility] Last Admin: 04/13/17 09:34 Dose: 500 mg Guaifenesin (Mucinex -) 600 mg PO BID [facility] Last Admin: 04/13/17 09:33 Dose: 600 mg Guaifenesin (Robitussin Dm -) 10 ml PO Q4H PRN PRN Reason: COUGH Last Admin: 04/13/17 03:33 Dose: 10 ml Haloperidol (Haldol Injection (Fast Acting) -) 5 mg IM Q4H PRN PRN Reason: AGITATION Last Admin: 04/12/17 22:12 Dose: 5 mg Metoprolol Tartrate (Lopressor -) 25 mg PO Q6HPO [facility] Last Admin: 04/13/17 11:50 Dose: 25 mg Ropinirole HCl (Requip -) 1 mg PO HS [facility] Last Admin: 04/12/17 22:15 Dose: 1 mg Timolol Maleate (Timoptic 0.5%) 1 drop OU BID [facility] Last Admin: 04/13/17 09:34 Dose: 1 drop - Objective Vital Signs: Vital Signs Temperature 98.2 F 04/13/17 08:48 Pulse Rate 114 H 04/13/17 09:25 Respiratory Rate 18 04/13/17 08:48 Blood Pressure 118/66 04/13/17 08:48 O2 Sat by Pulse Oximetry (%) 97 04/13/17 09:25 Constitutional: Yes: No Distress, Calm, Thin Neck: Yes: Supple Cardiovascular: Yes: Tachycardia, Pulse Irregular Respiratory: Yes: Regular, Diminished, On Nasal O2 Gastrointestinal: Yes: Normal Bowel Sounds, Soft Edema: No Labs: CBC, BMP 04/13/17 05:35 04/13/17 05:35 INR, PTT INR 1.07 (0.82-1.09) 04/10/17 11:45 Problem List - Problems (1) Atrial fibrillation with RVR Code(s): I48.91 - UNSPECIFIED ATRIAL FIBRILLATION (2) HTN (hypertension) Code(s): I10 - ESSENTIAL (PRIMARY) HYPERTENSION Qualifiers: Hypertension type: essential hypertension Qualified Code(s): I10 - Essential (primary) hypertension (3) Hypercholesterolemia Code(s): E78.00 - PURE HYPERCHOLESTEROLEMIA, UNSPECIFIED (4) Diastolic dysfunction Code(s): I51.9 - HEART DISEASE, UNSPECIFIED (5) Leukocytosis Code(s): D72.829 - ELEVATED WHITE BLOOD CELL COUNT, UNSPECIFIED Qualifiers: Leukocytosis type: unspecified Qualified Code(s): D72.829 - Elevated white blood cell count, unspecified (6) Chronic kidney disease Code(s): N18.9 - CHRONIC KIDNEY DISEASE, UNSPECIFIED Qualifiers: Chronic kidney disease stage: stage 2 (mild) Qualified Code(s): N18.2 - Chronic kidney disease, stage 2 (mild) Assessment/Plan 04/11/2017 Echo: Normal LV size and fxn, mild LAE, mild MR, TR, RVSP 30-40 mmHg 1. Persistent trial fibrillation with RVR 2. Hypertension 3. Hypercholesterolemia 4. CKD 5. Diastolic dysfunction PLAN: 1. Continue Eliquis 5 mg BID, Lipitor 10 qhs 2. Continue Lopressor 25 q6 for rate control, add Cardizem 30 q6 for additional rate control 3. Consider further rhythm control measures with FABIENNE +/- synchronized cardioversion if clinically indicated, but can be done as outpatient. 4. Monitor renal function and electrolytes
--- NOTE | 2017-04-13 13:36 | MSN ---
Progress Note (short form) - Note Progress Note: Subjective: Nurses stated that last night the patient became restless, had exacerbated cough , and elevated heart rate. Patient was given diltiazem to control her heart rate with resolution of her symptoms. The patient was then able to fall asleep and awoke again at 0200 hours with elevated heart rate and coughing exacerbation. The patient was given her metoprolol regularly scheduled dose early and her symptoms resolved. The patient was seen this morning by me at the bedside. As per the quality assurance monitor the patient had an irregularly irregular rhythm with a rate of 109. The patient was alert and oriented and able to answer question without problem. She stated that her coughing is made worse when lying down and wanted to be repositioned. She stated that her cough has not gotten better and that the productive sputum she was having previously is no longer being produced. She continues to have hoarness of voice but denies any chest pain, shortness of breath, nauseas, vomiting, diarrhea, headache, fever chills or dizziness. She has a new complaint of back ache that started last night and she attributes to laying in bed. she has been eating and drinking without incidence but is complaining of her second day of constipation. Vital Signs Period Temp Pulse Resp BP Sys/Kraus Pulse Ox Last 24 Hr 97.4 F-98.2 F 82-118 16-20 99-156/51-92 94-97 Exam: General: patient is alert and oriented and in no distress Heart: Irregularly irregular with a rate of 109. no murmurs, rubs or gallops were heard Lungs: Ronchi were heard in all long jewell Extremities: 4/5 muscle strength and 2/4 pulses in all extremities, with intact sensation. no lower extremity edema was present Abdomen: no guarding or distention. Normoactive bowel sounds with no tenderness to palpation in any of the four quadrants. Laboratory Results - last 24 hr 04/12/17 04/12/17 04/13/17 12:00 13:00 05:35 WBC 14.7 H RBC 4.19 Hgb 11.4 Hct 35.4 MCV 84.6 MCHC 32.1 RDW 14.5 Plt Count 444 H MPV 8.0 PTT (Actin FS) Sodium Potassium Chloride Carbon Dioxide Anion Gap BUN Creatinine Random Glucose Calcium Ur Random Sodium 32 Ur Random Potassium 25.3 Ur Random Chloride 36 Urine Creatinine 110.0 06/15/17 06/15/17 05:35 05:35 WBC RBC Hgb Hct MCV MCHC RDW Plt Count MPV PTT (Actin FS) 39.7 H Sodium 144 Potassium 4.3 Chloride 107 Carbon Dioxide 30 Anion Gap 7 L BUN 22 H Creatinine 1.2 H Random Glucose 102 D Calcium 9.2 Ur Random Sodium Ur Random Potassium Ur Random Chloride Urine Creatinine Current Medications Generic Name Dose Route Start Last Admin Trade Name Freq PRN Reason Stop Dose Admin Apixaban 5 mg 04/11/17 10:15 04/13/17 09:33 Eliquis - PO 5 mg BID ROSEANNE Administration Atorvastatin Calcium 10 mg 04/10/17 22:00 04/12/17 22:10 Lipitor - PO 10 mg HS ROSEANNE Administration Azithromycin 500 mg 04/13/17 10:00 04/13/17 09:34 Zithromax - PO 500 mg DAILY ROSEANNE Administration Diltiazem HCl 30 mg 04/13/17 14:00 Cardizem - PO QID ROSEANNE Guaifenesin 600 mg 04/10/17 22:00 04/13/17 09:33 Mucinex - PO 600 mg BID ROSEANNE Administration Guaifenesin 10 ml 04/11/17 10:59 04/13/17 03:33 Robitussin Dm - PO 10 ml Q4H PRN Administration COUGH Haloperidol 5 mg 04/12/17 10:25 04/12/17 22:12 Haldol Injection (Fast Acting) - IM 5 mg Q4H PRN Administration AGITATION Metoprolol Tartrate 25 mg 04/12/17 12:00 04/13/17 11:50 Lopressor - PO 25 mg Q6HPO ROSEANNE Administration Ropinirole HCl 1 mg 04/10/17 22:00 04/12/17 22:15 Requip - PO 1 mg HS ROSEANNE Administration Timolol Maleate 1 drop 04/10/17 22:00 04/13/17 09:34 Timoptic 0.5% OU 1 drop BID RO[facility]AN[facility] Administration Imaging: Chest x-ray (04/10/17)- cardiomegaly, no acute intrathoracic pathology present EKG (04/10/17)- Shows atrial fibrillation with rate of 145 PA and Lateral x-ray (04/11/17)- no acute infiltrate or failure observed. Echocardiogram (04/11/17)- left ventricular size is normal, small pericardial effusion Assessment and Plan: Patient is an 87 year old female with pat medical history of HTN, HLD, glaucoma , restless leg syndrome, who presented to the ER for recurring cough found to have atrial fibrillation and Acute kidney injury. 1) Atrial fibrillation - [id number] VASc score of 4 - atrial fibrillation still present with heart rate 100-110bpm - continue Eliquis 5mg PO - continue Metoprol 25 mg PO q6hrs for rate control - started diltiazem 30 mg PO q6hrs for rate control - goal BPM <120 - continue monitoring on telemetry. 2) Acute Encephalopathy - haloperidol 5mg IM q 4hr PRN, for sundowning and altered mental status 3) ABDOUL secondary to dehydration - Resolved - creatinine 1.2, with base line creatinine in may of 2016 of 1.2 - continue to monitor creatinine values 4) Cough possibly secondary to pneumonia or CHF - chest x-ray PA and lateral X-ray showed no signs of acute infiltrate or failure. - Continue on azithromycin 500mg PO daily for suspected bronchitis - physical therapy has bee ordered - Robotissin 10 ml PO PRN - Mucinex 600 mg PO BID 5) HTN - continue metoprolol 25 mg PO q6hrs - discontinued at home amlodipine 5mg PO daily 6) HLD - Continue at home atorvastatin 10 mg PO qhs 7) Restless leg syndrome - Continue ropinrole 1mg PO qhs 8) glaucoma - continue at home timolol eye drops DVT prophylaxis -continue eloquis 5mg PO F/E/N - continue cardiac diet
[2017-04-13] MEDS: dilTIAZem HCL 30 MG TABLET (FP) PO SCH ×3 (15:12→21:15)
--- NOTE | 2017-04-13 18:11 | PN ---
Physical Exam: SUBJECTIVE: Patient seen and examined by me at bedside. Overnight events noted for two episodes of A.fib with RVR that responded to Cardizem and metoprolol. Otherwise, patient denies fever, chills, nausea, vomiting, abdominal pain, chest pain, shortness of breath, palpitations, headaches, dizziness. OBJECTIVE: Vital Signs Period Temp Pulse Resp BP Sys/Kraus Pulse Ox Last 24 Hr 97.4 F-98.2 F 86-118 16-18 99-156/53-92 97-97 GENERAL: The patient is awake, alert, and fully oriented, in no acute distress.. LUNGS: Rhonchi's throughout lung bases bilaterally, no wheezes, no crackles, no accessory muscle use. HEART: Tachycardic, irregularly irregular rhythm, normal S1 and S2 without murmur, rub or gallop. ABDOMEN: Soft, nontender, nondistended, normoactive bowel sounds, no guarding. EXTREMITIES: No peripheral edema. Chronic venous stasis of bilateral lower extremities NEUROLOGICAL: Normal speech, no facial droop. Laboratory Results - last 24 hr 04/12/17 04/13/17 04/13/17 13:00 05:35 05:35 WBC 14.7 H RBC 4.19 Hgb 11.4 Hct 35.4 MCV 84.6 MCHC 32.1 RDW 14.5 Plt Count 444 H MPV 8.0 PTT (Actin FS) 39.7 H Sodium Potassium Chloride Carbon Dioxide Anion Gap BUN Creatinine Random Glucose Calcium Ur Random Sodium 32 Ur Random Potassium 25.3 Ur Random Chloride 36 04/13/17 05:35 WBC RBC Hgb Hct MCV MCHC RDW Plt Count MPV PTT (Actin FS) Sodium 144 Potassium 4.3 Chloride 107 Carbon Dioxide 30 Anion Gap 7 L BUN 22 H Creatinine 1.2 H Random Glucose 102 D Calcium 9.2 Ur Random Sodium Ur Random Potassium Ur Random Chloride Active Medications Generic Name Dose Route Start Last Admin Trade Name Freq PRN Reason Stop Dose Admin Apixaban 5 mg 04/11/17 10:15 04/13/17 09:33 Eliquis - PO 5 mg BID ROSEANNE Administration Atorvastatin Calcium 10 mg 04/10/17 22:00 04/12/17 22:10 Lipitor - PO 10 mg HS ROSEANNE Administration Azithromycin 500 mg 04/13/17 10:00 04/13/17 09:34 Zithromax - PO 500 mg DAILY [facility] Administration Diltiazem HCl 30 mg 04/13/17 14:00 04/13/17 17:29 Cardizem - PO 30 mg QID ROSEANNE Administration Guaifenesin 600 mg 04/10/17 22:00 04/13/17 09:33 Mucinex - PO 600 mg BID RO[facility]AN[facility] Administration Guaifenesin 10 ml 04/11/17 10:59 04/13/17 15:14 Robitussin Dm - PO 10 ml Q4H PRN Administration COUGH Haloperidol 5 mg 04/12/17 10:25 04/12/17 22:12 Haldol Injection (Fast Acting) - IM 5 mg Q4H PRN Administration AGITATION Metoprolol Tartrate 25 mg 04/12/17 12:00 04/13/17 17:29 Lopressor - PO 25 mg Q6HPO RO[facility] Administration Ropinirole HCl 1 mg 04/10/17 22:00 04/12/17 22:15 Requip - PO 1 mg HS RO[facility] Administration Timolol Maleate 1 drop 04/10/17 22:00 04/13/17 09:34 Timoptic 0.5% OU 1 drop BID RO[facility] Administration Imaging: Chest x-ray (04/10/17)- cardiomegaly, no acute intrathoracic pathology present EKG (04/10/17)- A.fib @ 145 BPM, no ST-T elevations or depressions. PA and Lateral x-ray (04/11/17): Large heart. Sclerotic knob. Some atelectatic changes in the retrocardiac area. ASSESSMENT/PLAN: Patient is an 87 year old female with a PMHx of HTN, HLD, Glaucoma, restless leg syndrome who presented for worsening cough and URI symptoms. Patient was found to have new onset of A.fib with RVR and ABDOUL. Patient admitted for further monitoring and management. New Onset of A.fib w/RVR-uncontrolled -[id number] 4 -Likely secondary to infection -Continue Metoprolol 25mg QID for heart rate control -Continue Eliquis 5mg BID -Cardizem 10mg given overnight due to A.fib with RVR. Will start Cardizem 30mg QID, as per Cardiology -ECHO wnl with no LV dysfunction -Continue CARDIAC Monitoring -Cardiology consult appreciated Cough secondary to Possible PNA vs. URI -BNP elevated at 11,000 but can be due to ABDOUL or old age with pedal edema -Two Chest X-rays reveal no pneumonia, consolidation -ECHO reveals no LV dysfunction -Continue Azithromycin 500mg Daily day #2 -Blood and urine cultures negative -Continue Robitussin and Mucinex Acute Delirium vs. -Continue Haldol 5mg PRN ABDOUL -Improving -Creatinine 1.2 today -Secondary to Dehydration -Avoid Nephrotoxic medications -Continue to monitor creatinine HTN -Continue Metoprolol 25mg QID -Hold Valsartan due to nephrotoxicity -Continue to monitor BP HLD -Continue Atorvastatin 10mg daily Restless Leg Syndrome -Ropinirole 1 mg po qhs Glaucoma -Continue Timolol eyedrops F/E/N -On no Fluids -Electrolytes wnl -Sodium controlled diet Prophylaxis -Eliquis 5mg BID Disposition -Continues to have Tachycardia with overnight event of A.fib with RVR. Will continue cardiac monitoring. Visit type - Emergency Visit Emergency Visit: Yes ED Registration Date: 04/10/17 Care time: The patient presented to the Emergency Department on the above date and was hospitalized for further evaluation of their emergent condition. - New Patient This patient is new to me today: No - Critical Care Critical Care patient: No
[2017-04-13] MEDS ORDERED: PT OWN MED DRAWER 7, Y5N ONE (21:14)
[2017-04-13] MEDS: ATORVASTATIN CA 10 MG TABLET (FP) PO SCH (21:15)
[2017-04-13] MEDS: rOPINIRole HCL 1 MG TABLET (FP) PO SCH (21:15)
[2017-04-14] MEDS: METOPROLOL TARTRATE 25 MG TABLET (FP) PO SCH ×5 (00:56→23:22)
[2017-04-14] MEDS: HALOPERIDOL LACTATE 5 MG/ML IM PRN (01:43)
[2017-04-14 08:02] LABS: MCH 27.6 pg (25.7-33.7); MCHC 32.8 g/dl (32.0-36.0); MEAN CELL VOLUME 84.2 fl (80-96); PLATELET COUNT 446 K/MM3 (134-434); RDW 14.5 % (11.6-15.6); WHITE BLOOD COUNT 14.3 K/mm3 (4.0-10.0)
--- NOTE | 2017-04-14 08:13 | PN ---
Teaching Attending Note Name of Resident: Livia Sharma ATTENDING PHYSICIAN STATEMENT I saw and evaluated the patient. I reviewed the resident's note and discussed the case with the resident. I agree with the resident's findings and plan as documented. SUBJECTIVE: The patient is an 87 year old female with a significant PMH of HTN and dyslipidemia who was admitted with new onset rapid atrial fibrillation and suspected acute bronchitis. Rate controlled now on beta rei with calcium channel rei when patient is at rest. With exertion, however, she neo a tachycardia. She continues to cough. She complains of chronic hip pain with movement. OBJECTIVE: Vitals noted ASSESSMENT AND PLAN: -New onset rapid atrial fibrillation Appreciate cardiology input Continue anticoagulation with Eliquis Continue rate control with Cardizem and Lopressor Will add standing tylenol as some component of her exertional tachycardia may be secondary to pain Consider discharge tomorrow if her exertional tachycardia resolves -Cough Will repeat CXR to r/o developing pneumonia or pulmonary edema Can give a total of 3 days of Azithromycin 500mg and then discontinue if CXR is negative
[2017-04-14 08:20] LABS: ANION GAP 8 (8-16); CALCIUM 8.9 mg/dL (8.5-10.1); CO2 28 mmol/L (21-32); CREATININE 1.2 mg/dL (0.55-1.02); GLUCOSE,RANDOM 120 mg/dL (74-106)
--- NOTE | 2017-04-14 08:36 | PN ---
Physical Exam: SUBJECTIVE: Patient seen and examined by me at bedside. Overnight events noted with one episode of tachycardia to the 130's but no cardizem was given. Patient is sleepy and lethargic this morning and states she did not sleep much last night from hospital noises. Otherwise, patient denies fever, chills, nausea, vomiting, abdominal pain, chest pain, palpitations, shortness of breath , headaches, dizziness. OBJECTIVE: Vital Signs Period Temp Pulse Resp BP Sys/Kraus Pulse Ox Last 24 Hr 97.8 F-98.2 F 86-114 18-20 118-137/53-66 96-97 GENERAL: The patient is awake but drowsy, alert, fully oriented, in no acute distress.. LUNGS: Crackles and Rhonchi throughout lung jewell bilaterally, no accessory muscle use. HEART: Tachycardic, irregularly irregular rhythm, normal S1 and S2 without murmur, rub or gallop. ABDOMEN: Soft, nontender, nondistended, normoactive bowel sounds, no guarding. EXTREMITIES: No peripheral edema. Chronic venous stasis of bilateral lower extremities NEUROLOGICAL: Normal speech, no facial droop. Laboratory Results - last 24 hr 04/14/17 04/14/17 06:10 06:10 WBC 14.3 H RBC 3.88 Hgb 10.7 Hct 32.7 MCV 84.2 MCHC 32.8 RDW 14.5 Plt Count 446 H MPV 8.0 Sodium 142 Potassium 4.2 Chloride 106 Carbon Dioxide 28 Anion Gap 8 BUN 21 H Creatinine 1.2 H Random Glucose 120 H Calcium 8.9 Active Medications Generic Name Dose Route Start Last Admin Trade Name Freq PRN Reason Stop Dose Admin Apixaban 5 mg 04/11/17 10:15 04/13/17 21:15 Eliquis - PO 5 mg BID ROSEANNE Administration Atorvastatin Calcium 10 mg 04/10/17 22:00 04/13/17 21:15 Lipitor - PO 10 mg HS ROSEANNE Administration Azithromycin 500 mg 04/13/17 10:00 04/13/17 09:34 Zithromax - PO 500 mg DAILY RO[facility]ANNE Administration Diltiazem HCl 30 mg 04/13/17 14:00 04/13/17 21:15 Cardizem - PO 30 mg QID ROSEANNE Administration Guaifenesin 600 mg 04/10/17 22:00 04/13/17 21:15 Mucinex - PO 600 mg BID ROSEANNE Administration Guaifenesin 10 ml 04/11/17 10:59 04/13/17 21:15 Robitussin Dm - PO 10 ml Q4H PRN Administration COUGH Metoprolol Tartrate 25 mg 04/12/17 12:00 04/14/17 05:13 Lopressor - PO 25 mg Q6HPO ROSEANNE Administration Ropinirole HCl 1 mg 04/10/17 22:00 04/13/17 21:15 Requip - PO 1 mg HS ROSEANNE Administration Timolol Maleate 1 drop 04/10/17 22:00 04/13/17 21:25 Timoptic 0.5% OU 1 drop BID ROSEANNE Administration Imaging: Chest x-ray (04/10/17)- cardiomegaly, no acute intrathoracic pathology present EKG (04/10/17)- A.fib @ 145 BPM, no ST-T elevations or depressions. PA and Lateral x-ray (04/11/17): Large heart. Sclerotic knob. Some atelectatic changes in the retrocardiac area. ASSESSMENT/PLAN: Patient is an 87 year old female with a PMHx of HTN, HLD, Glaucoma, restless leg syndrome who presented for worsening cough and URI symptoms. Patient was found to have new onset of A.fib with RVR and ABDOUL. Patient admitted for further monitoring and management. New Onset of A.fib w/RVR-uncontrolled -[id number] 4 -Likely secondary to infection -One episode of tachycardia overnight on exertion that resolved immediately. Patient continues to have tachycardia on exertion with resolution of symptoms immediately -Continue Metoprolol 25mg QID for heart rate control -Continue Eliquis 5mg BID -Continue Cardizem 30mg QID, as per Cardiology -ECHO wnl with no LV dysfunction -Continue CARDIAC Monitoring -Cardiology consult appreciated -Will likely discharge with rate control medications and anticoagulation Cough secondary to Possible URI likely Bronchitis- Improving -BNP elevated at 11,000 but can be due to ABDOUL or old age and Obesity -Cough improved slightly -Continues to have tachycardia on exertion -Lungs reveal crackles -Chest X-ray ordered for today to rule out pulmonary edema, CHF exac, or pneumonia -Continue Azithromycin 500mg Daily day #3. Will discontinue abx depending on chest x-ray results today -Blood and urine cultures negative -Continue Robitussin and Mucinex Osteoarthritis- Chronic -Patient continues to have tachycardia on exertion likely exacerbated by hip pain -Tylenol 350mg Q6H ordered Acute Delirium vs. Sundowning- Improved ABDOUL -Improving -Secondary to Dehydration -Creatinine 1.2 today -Avoid Nephrotoxic medications -Continue to monitor creatinine HTN-Chronic -Continue Metoprolol 25mg QID -Hold Valsartan due to nephrotoxicity -Continue to monitor BP HLD-Chronic -Continue Atorvastatin 10mg daily Restless Leg Syndrome -Ropinirole 1 mg po qhs Glaucoma- Chronic -Continue Timolol eyedrops F/E/N -On no Fluids -Electrolytes wnl -Sodium controlled diet Prophylaxis -Eliquis 5mg BID for DVT Disposition -Better controlled rate overnight. Anticipating discharge tomorrow with rate control and anticoagulation prescriptions Visit type - Emergency Visit Emergency Visit: Yes ED Registration Date: 04/10/17 Care time: The patient presented to the Emergency Department on the above date and was hospitalized for further evaluation of their emergent condition. - New Patient This patient is new to me today: No - Critical Care Critical Care patient: No
[2017-04-14] MEDS: dilTIAZem HCL 30 MG TABLET (FP) PO SCH ×4 (09:09→21:41)
[2017-04-14] MEDS: APIXABAN 5 MG TABLET PO SCH (09:09)
[2017-04-14] MEDS: guaiFENesin 600 MG TABLET.ER (FP) PO SCH ×2 (09:09→21:41)
[2017-04-14] MEDS: AZITHROMYCIN 250 MG TABLET (FP) PO SCH (09:10)
[2017-04-14] MEDS: TIMOLOL 0.5% OPHTHALMIC SOL 5 ML BOTTLE OU SCH ×2 (09:10→21:43)
[2017-04-14] MEDS: guaiFENesin/D-METHORPHAN HB 10 ML UNIT-DOSE CUPS PO PRN ×3 (09:10→23:27)
[2017-04-14] MEDS ORDERED: ACETAMINOPHEN 325 MG TABLET (FP) PO SCH (11:00)
[2017-04-14 11:32] LABS: PLATELET ESTIMATE ADEQUATE (NORMAL)
--- NOTE | 2017-04-14 11:46 | PN ---
Progress Note (short form) - Note Progress Note: S: The patient is an 87 year old female admitted with productive cough, generalized fatigue and weakness. According to son, she had poor appetite and increased somnolence. No history of chills, fever, or night sweats. Patient was found to be in atrial fibrillation with rapid ventricular response. History of shortness of breath. History of hypertension, hyperlipidemia, profound deafness. History of glaucoma and hyperuricemia. No history of diabetes mellitus. Active Medications Generic Name Dose Route Start Last Admin Trade Name Freq PRN Reason Stop Dose Admin Acetaminophen 325 mg 04/14/17 11:00 Tylenol - PO Q6H PRN Apixaban 5 mg 04/11/17 10:15 04/14/17 09:09 Eliquis - PO 5 mg BID ROSEANNE Administration Atorvastatin Calcium 10 mg 04/10/17 22:00 04/13/17 21:15 Lipitor - PO 10 mg HS ROSEANNE Administration Azithromycin 500 mg 04/13/17 10:00 04/14/17 09:10 Zithromax - PO 500 mg DAILY ROSEANNE Administration Diltiazem HCl 30 mg 04/13/17 14:00 04/14/17 09:09 Cardizem - PO 30 mg QID ROSEANNE Administration Guaifenesin 600 mg 04/10/17 22:00 04/14/17 09:09 Mucinex - PO 600 mg BID ROSEANNE Administration Guaifenesin 10 ml 04/11/17 10:59 04/14/17 09:10 Robitussin Dm - PO 10 ml Q4H PRN Administration COUGH Metoprolol Tartrate 25 mg 04/12/17 12:00 04/14/17 05:13 Lopressor - PO 25 mg Q6HPO ROSEANNE Administration Ropinirole HCl 1 mg 04/10/17 22:00 04/13/17 21:15 Requip - PO 1 mg HS ROSEANNE Administration Timolol Maleate 1 drop 04/10/17 22:00 04/14/17 09:10 Timoptic 0.5% OU 1 drop BID ROSEANNE Administration O: 87 year old female was in no acute distress. No pallor, cyanosis, clubbing, or jaundice. Last Vital Signs Temp Pulse Resp BP Pulse Ox 98.1 F 102- Irregular 20 100/60 96 04/14/17 09:00 04/14/17 09:00 04/14/17 09:00 04/14/17 09:00 04/13/17 21:00 NECK: Supple, no JVD, negative HJR, carotids were equal and upstrokes were normal, no thyromegaly appreciated. HEART: PMI was in the 5th intercostal space, no heaves or thrills, S1 variable, S2 normal. No murmurs or gallops were appreciated. LUNGS: Bilateral scattered expiratory wheezing and basilar crepitations. ABDOMEN: Soft, nontender, no hepatosplenomegaly appreciated, and no palpable masses were felt. EXTREMITIES: No calf tenderness or dependent edema. Pulses are normal. CBC, BMP 04/14/17 06:10 04/14/17 06:10 Laboratory Results - last 24 hr 04/14/17 04/14/17 06:10 06:10 WBC 14.3 H RBC 3.88 Hgb 10.7 Hct 32.7 MCV 84.2 MCHC 32.8 RDW 14.5 Plt Count 446 H MPV 8.0 Neutrophils % 75.0 Lymphocytes % 9.0 Monocytes % 12.0 H Eosinophils % 1.0 D Band Neutrophils 3.0 Platelet Estimate Adequate Sodium 142 Potassium 4.2 Chloride 106 Carbon Dioxide 28 Anion Gap 8 BUN 21 H Creatinine 1.2 H Random Glucose 120 H Calcium BNP (04/11/17) 8.9 35494.11 Chest X-ray Impression: Cardiomegaly No acute intrathoracic abnormality seen. Impression: 1. Clinical presentation consistent with acute bronchitis. 2. Atrial fibrillation with rapid ventricular response. 3. Hypertension/ hypertensive cardiovascular disease. 4. Hyperlipidemia. 5. Mild renal insufficiency 6. Congestive heart failure Recommendations: 1. May need to reduce the dose of Eliquis to 2.5 mg BID because of age and also underlying renal insufficiency. 2. Consider adding Lasix under close observation of renal function. 3. Continue current cardiac medications. Prognosis: Guarded Documentation prepared by Karen Brunner, acting as a medical aide for Joshua Feng MD. Problem List - Problems (1) Atrial fibrillation with RVR Code(s): I48.91 - UNSPECIFIED ATRIAL FIBRILLATION (2) Chronic kidney disease Code(s): N18.9 - CHRONIC KIDNEY DISEASE, UNSPECIFIED Qualifiers: Chronic kidney disease stage: stage 2 (mild) Qualified Code(s): N18.2 - Chronic kidney disease, stage 2 (mild) (3) Diastolic dysfunction Code(s): I51.9 - HEART DISEASE, UNSPECIFIED (4) HTN (hypertension) Code(s): I10 - ESSENTIAL (PRIMARY) HYPERTENSION Qualifiers: Hypertension type: essential hypertension Qualified Code(s): I10 - Essential (primary) hypertension (5) Hypercholesterolemia Code(s): E78.00 - PURE HYPERCHOLESTEROLEMIA, UNSPECIFIED (6) Leukocytosis Code(s): D72.829 - ELEVATED WHITE BLOOD CELL COUNT, UNSPECIFIED Qualifiers: Leukocytosis type: unspecified Qualified Code(s): D72.829 - Elevated white blood cell count, unspecified
--- NOTE | 2017-04-14 13:04 | MSN ---
Progress Note (short form) - Note Progress Note: Subjective: Patient was seen by me at the bedside. I talked to the nurse she stated that the patient became agitated overnight and had 1 episode of elevated heart rate which the nurse stated was self resolving. The patient was given haloperidol 5mg IM during the night by the nurse because of the patients agitation. when talking to the patient she was alert and oriented and able to answer questions. She is aware that she is in the hospital and why she is in the hospital. The patient stated that she feels like her cough is improved and denies any sputum. Patient states that she is feeling more tired than previous days. The patient stated that her right hip is painful and has been painful since yesterday. Patient denies any sore through, hoarness, headache, or dizziness. Patient also denies any chest pain, fever, chills, nausea or vomiting. Vital Signs Period Temp Pulse Resp BP Sys/Kraus Pulse Ox Last 24 Hr 97.8 F-98.2 F 86-105 18-20 100-137/53-66 96-97 Exam: General: alert and oriented in no acute distress Heart: irregularly irregular with a HR range of 115-125, no murmurs, rubs, or gallops Lungs: faint [place] in the lung bases bilaterally, clear to auscultation bilaterally in all other lung jewell Extremities: 4/5 muscle strength and 2/4 pulses in all extremities with intact sensation. No swelling or edema is present Abdomen: no guarding or distention. normoactive bowels sounds, no tenderness to palpation. Laboratory Results - last 24 hr 04/14/17 04/14/17 06:10 06:10 WBC 14.3 H RBC 3.88 Hgb 10.7 Hct 32.7 MCV 84.2 MCHC 32.8 RDW 14.5 Plt Count 446 H MPV 8.0 Neutrophils % 75.0 Lymphocytes % 9.0 Monocytes % 12.0 H Eosinophils % 1.0 D Band Neutrophils 3.0 Platelet Estimate Adequate Sodium 142 Potassium 4.2 Chloride 106 Carbon Dioxide 28 Anion Gap 8 BUN 21 H Creatinine 1.2 H Random Glucose 120 H Calcium 8.9 Current Medications Generic Name Dose Route Start Last Admin Trade Name Freq PRN Reason Stop Dose Admin Acetaminophen 325 mg 04/14/17 11:00 Tylenol - PO Q6H PRN Apixaban 5 mg 04/11/17 10:15 04/14/17 09:09 Eliquis - PO 5 mg BID ROSEANNE Administration Atorvastatin Calcium 10 mg 04/10/17 22:00 04/13/17 21:15 Lipitor - PO 10 mg HS ROSEANNE Administration Azithromycin 500 mg 04/13/17 10:00 04/14/17 09:10 Zithromax - PO 500 mg DAILY ROSEANNE Administration Diltiazem HCl 30 mg 04/13/17 14:00 04/14/17 09:09 Cardizem - PO 30 mg QID ROSEANNE Administration Guaifenesin 600 mg 04/10/17 22:00 04/14/17 09:09 Mucinex - PO 600 mg BID ROSEANNE Administration Guaifenesin 10 ml 04/11/17 10:59 04/14/17 09:10 Robitussin Dm - PO 10 ml Q4H PRN Administration COUGH Metoprolol Tartrate 25 mg 04/12/17 12:00 04/14/17 12:15 Lopressor - PO 25 mg Q6HPO ROSEANNE Administration Ropinirole HCl 1 mg 04/10/17 22:00 04/13/17 21:15 Requip - PO 1 mg HS ROSEANNE Administration Timolol Maleate 1 drop 04/10/17 22:00 04/14/17 09:10 Timoptic 0.5% OU 1 drop BID ROSEANNE Administration Imaging: Chest x-ray (04/10/17)- cardiomegaly, no acute intrathoracic pathology present EKG (04/10/17)- Shows atrial fibrillation with rate of 145 PA and Lateral x-ray (04/11/17)- no acute infiltrate or failure observed. Echocardiogram (04/11/17)- left ventricular size is normal, small pericardial effusion Repeat chest X-Ray (04/14/17)- congestive changes cannot be excluded, no air space opacities visualized. Assessment and Plan: Patient is an 87 year old female with pat medical history of HTN, HLD, glaucoma , restless leg syndrome, who presented to the ER for recurring cough found to have atrial fibrillation and Acute kidney injury. 1) Atrial fibrillation - [id number] VASc score of 4 - atrial fibrillation still present with heart rate 115-125 - continue acetaminophen 325 mg PO q6hrs PRN - continue Eliquis 5mg PO - continue Metoprol 25 mg PO q6hrs for rate control - continue diltiazem 30 mg PO q6hrs for rate control - goal BPM <120 - continue monitoring on telemetry. 2) Acute Encephalopathy - Resolved - discontinued haloperidol 5mg IM q 4hr PRN 3) ABDOUL secondary to dehydration - Resolved - creatinine 1.2, with base line creatinine in may of 2016 of 1.2 - continue to monitor creatinine values 4) Cough possibly secondary to pneumonia or CHF - repeat chest x-ray (04/14/17) shows no airspace opacities - previous chest x-ray, PA and lateral X-ray showed no signs of acute infiltrate or failure. - Continue on azithromycin 500mg PO daily (day 3) for bronchitis. - continue physical therapy, patient able to walk to the end of the hallway and back with walker. - Robotissin 10 ml PO PRN - Mucinex 600 mg PO BID 5) HTN - continue metoprolol 25 mg PO q6hrs - discontinued at home amlodipine 5mg PO daily 6) HLD - Continue at home atorvastatin 10 mg PO qhs 7) Restless leg syndrome - Continue ropinrole 1mg PO qhs 8) glaucoma - continue at home timolol eye drops DVT prophylaxis -continue eloquis 5mg PO F/E/N - continue cardiac diet
[2017-04-14] MEDS: ACETAMINOPHEN 325 MG TABLET (FP) PO PRN ×2 (16:27→23:23)
[2017-04-14] MEDS: FUROSEMIDE 20 MG TABLET (FP) PO SCH (18:39)
[2017-04-14] MEDS: ATORVASTATIN CA 10 MG TABLET (FP) PO SCH (21:41)
[2017-04-14] MEDS: APIXABAN 2.5 MG TABLET PO SCH (21:41)
[2017-04-14] MEDS: rOPINIRole HCL 1 MG TABLET (FP) PO SCH (21:42)
[2017-04-14] MEDS ORDERED: PT OWN MED DRAWER 7, Y5N ONE (21:42)
[2017-04-15] MEDS: METOPROLOL TARTRATE 25 MG TABLET (FP) PO SCH ×5 (03:28→23:32)
[2017-04-15 07:15] LABS: MCHC 31.9 g/dl (32.0-36.0); MEAN CELL VOLUME 84.6 fl (80-96); MEAN PLT VOLUME 8.6 fl (7.5-11.1); PLATELET COUNT 405 K/MM3 (134-434); RDW 14.7 % (11.6-15.6)
[2017-04-15 07:40] LABS: ANION GAP 8 (8-16); CALCIUM 8.9 mg/dL (8.5-10.1); CO2 29 mmol/L (21-32); GLUCOSE,RANDOM 110 mg/dL (74-106)
[2017-04-15 07:41] LABS: CREATININE 1.2 mg/dL (0.55-1.02)
[2017-04-15] MEDS: ACETAMINOPHEN 325 MG TABLET (FP) PO PRN ×3 (09:33→23:33)
[2017-04-15] MEDS: FUROSEMIDE 20 MG TABLET (FP) PO SCH (09:33)
[2017-04-15] MEDS: guaiFENesin 600 MG TABLET.ER (FP) PO SCH ×2 (09:35→21:37)
[2017-04-15] MEDS: APIXABAN 2.5 MG TABLET PO SCH ×2 (09:35→21:37)
[2017-04-15] MEDS: dilTIAZem HCL 30 MG TABLET (FP) PO SCH ×4 (09:35→23:33)
[2017-04-15] MEDS: guaiFENesin/D-METHORPHAN HB 10 ML UNIT-DOSE CUPS PO PRN (09:36)
[2017-04-15] MEDS: TIMOLOL 0.5% OPHTHALMIC SOL 5 ML BOTTLE OU SCH ×2 (09:36→21:37)
[2017-04-15] MEDS ORDERED: FUROSEMIDE 40 MG TABLET (FP) PO SCH (10:26)
--- NOTE | 2017-04-15 12:29 | PN ---
Physical Exam: SUBJECTIVE: Patient seen and examined oob to chair. States she feels unwell. Persistent cough is very bothersome. OBJECTIVE: Vital Signs Period Temp Pulse Resp BP Sys/Kraus Pulse Ox Last 24 Hr 97.4 F-98.1 F 85-105 20-22 104-133/57-70 97-97 GENERAL: The patient is awake, alert, and fully oriented, in no acute distress. Appears weak. HEAD: Normal with no signs of trauma. LUNGS: Bibasilar rales; no wheezes, no crackles, no accessory muscle use. Persistent dry cough. HEART: Irregular rate and rhythm, S1, S2 without murmur, rub or gallop. ABDOMEN: Soft, nontender, nondistended, normoactive bowel sounds, no guarding, no rebound, no hepatosplenomegaly, no masses. EXTREMITIES: 2+ pulses, warm, well-perfused, no edema. NEUROLOGICAL: Cranial nerves II through XII grossly intact. Normal speech, gait not observed. Laboratory Results - last 24 hr 04/15/17 04/15/17 06:00 06:00 WBC 12.0 H RBC 3.93 Hgb 10.6 L Hct 33.3 MCV 84.6 MCHC 31.9 L RDW 14.7 Plt Count 405 MPV 8.6 Sodium 143 Potassium 4.0 Chloride 106 Carbon Dioxide 29 Anion Gap 8 BUN 20 H Creatinine 1.2 H Random Glucose 110 H Calcium 8.9 Active Medications Generic Name Dose Route Start Last Admin Trade Name Freq PRN Reason Stop Dose Admin Acetaminophen 325 mg 04/14/17 11:00 04/15/17 09:33 Tylenol - PO 325 mg Q6H PRN Administration Apixaban 2.5 mg 04/14/17 22:00 04/15/17 09:35 Eliquis - PO 2.5 mg BID ROSEANNE Administration Atorvastatin Calcium 10 mg 04/10/17 22:00 04/14/17 21:41 Lipitor - PO 10 mg HS ROSEANNE Administration Diltiazem HCl 30 mg 04/13/17 14:00 04/15/17 09:35 Cardizem - PO 30 mg QID ROSEANNE Administration Furosemide 40 mg 04/15/17 12:24 Lasix Injection - IVPUSH 04/15/17 12:25 ONCE ONE Furosemide 40 mg 04/16/17 10:00 Lasix Injection - IVPUSH DAILY ROSEANNE Guaifenesin 600 mg 04/10/17 22:00 04/15/17 09:35 Mucinex - PO 600 mg BID ROSEANNE Administration Guaifenesin 10 ml 04/11/17 10:59 04/15/17 09:36 Robitussin Dm - PO 10 ml Q4H PRN Administration COUGH Metoprolol Tartrate 25 mg 04/12/17 12:00 04/15/17 06:18 Lopressor - PO 25 mg Q6HPO ROSEANNE Administration Ropinirole HCl 1 mg 04/10/17 22:00 04/14/17 21:42 Requip - PO 1 mg HS ROSEANNE Administration Timolol Maleate 1 drop 04/10/17 22:00 04/15/17 09:36 Timoptic 0.5% OU 1 drop BID ROSEANNE Administration ASSESSMENT/PLAN 87 year-old woman with a significant PMH of HTN and HLD, admitted with new onset rapid atrial fibrillation, suspected acute bronchitis, and newly diagnosed diastolic heart failure. Newly diagnosed atrial fibrillation with RVR --rate is better controlled, 95-->105 at rest; continue metoprolol and cardizem --continue Eliquis Acute diastolic heart failure --04/11 Echo: LV normal, RV normal, LAE, mild MR, mild TR, mild pHTN, EF 78% ( hyperdynamic) --lungs congested on CXR and on physical exam, BNP 11,578 --increase Lasix IV 40mg daily --pre-post ordered Bronchitis --continue azithromycin, last dose 04/16 Chronic back pain --Tylenol F/E/N Fluids: PO intake adequate Electrolytes: replete as indicated Nutrition: low sodium DVT prophylaxis: on Eliquis Dispo: will likely need SNF; full code. Visit type - Emergency Visit Emergency Visit: Yes ED Registration Date: 04/10/17 Care time: The patient presented to the Emergency Department on the above date and was hospitalized for further evaluation of their emergent condition. - New Patient This patient is new to me today: Yes Date on this admission: 04/15/17 - Critical Care Critical Care patient: No
[2017-04-15] MEDS ORDERED: FUROSEMIDE 40 MG/4 ML INJECTABLE VIAL IVPUSH ONE (12:45)
[2017-04-15] MEDS: AZITHROMYCIN 250 MG TABLET (FP) PO SCH (13:07)
[2017-04-15] MEDS ORDERED: PT OWN MED DRAWER 7, Y5N ONE (20:47)
[2017-04-15] MEDS: ATORVASTATIN CA 10 MG TABLET (FP) PO SCH (21:36)
[2017-04-15] MEDS: rOPINIRole HCL 1 MG TABLET (FP) PO SCH (21:36)
[2017-04-16] MEDS: METOPROLOL TARTRATE 25 MG TABLET (FP) PO SCH ×3 (05:35→21:06)
[2017-04-16 06:54] LABS: MCH 27.6 pg (25.7-33.7); MCHC 32.9 g/dl (32.0-36.0); MEAN CELL VOLUME 84.1 fl (80-96); MEAN PLT VOLUME 7.9 fl (7.5-11.1); PLATELET COUNT 490 K/MM3 (134-434); RDW 14.8 % (11.6-15.6); WHITE BLOOD COUNT 11.5 K/mm3 (4.0-10.0)
[2017-04-16 07:18] LABS: ALBUMIN 2.7 g/dl (3.4-5.0); ANION GAP 7 (8-16); CALCIUM 9.1 mg/dL (8.5-10.1); CO2 31 mmol/L (21-32); GLUCOSE,RANDOM 93 mg/dL (74-106); MAGNESIUM 1.8 mg/dL (1.8-2.4)
[2017-04-16 07:23] LABS: ALK PHOS 97 U/L (45-117); BILIRUBIN,TOTAL 0.4 mg/dL (0.2-1.0); CREATININE 1.3 mg/dL (0.55-1.02); SGOT/AST 34 U/L (15-37); SGPT/ALT 57 U/L (12-78); TOT PROT 6.1 g/dl (6.4-8.2)
--- NOTE | 2017-04-16 08:08 | PN ---
Teaching Attending Note Name of Resident: Livia Sharma ATTENDING PHYSICIAN STATEMENT I saw and evaluated the patient. I reviewed the resident's note and discussed the case with the resident. I agree with the resident's findings and plan as documented. SUBJECTIVE: Comfortable with no acute distress. still coughing. OBJECTIVE: Vital Signs Temperature 97.5 F L 04/16/17 06:00 Pulse Rate 97 H 04/16/17 06:00 Respiratory Rate 20 04/16/17 06:00 Blood Pressure 103/61 04/16/17 06:00 O2 Sat by Pulse Oximetry (%) 99 04/15/17 21:00 CBCD WBC 11.5 K/mm3 (4.0-10.0) H 04/16/17 06:00 RBC 4.04 M/mm3 (3.60-5.2) 04/16/17 06:00 Hgb 11.2 GM/dL (10.7-15.3) 04/16/17 06:00 Hct 34.0 % (32.4-45.2) 04/16/17 06:00 MCV 84.1 fl (80-96) 04/16/17 06:00 MCHC 32.9 g/dl (32.0-36.0) 04/16/17 06:00 RDW 14.8 % (11.6-15.6) 04/16/17 06:00 Plt Count 490 K/MM3 (134-434) H D 04/16/17 06:00 MPV 7.9 fl (7.5-11.1) 04/16/17 06:00 CMP Sodium 143 mmol/L (136-145) 04/16/17 06:00 Potassium 4.1 mmol/L (3.5-5.1) 04/16/17 06:00 Chloride 105 mmol/L (98-107) 04/16/17 06:00 Carbon Dioxide 31 mmol/L (21-32) 04/16/17 06:00 Anion Gap 7 (8-16) L 04/16/17 06:00 BUN 20 mg/dL (7-18) H 04/16/17 06:00 Creatinine 1.3 mg/dL (0.55-1.02) H 04/16/17 06:00 Creat Clearance w eGFR 38.66 (>60) 04/16/17 06:00 Random Glucose 93 mg/dL (74-106) 04/16/17 06:00 Calcium 9.1 mg/dL (8.5-10.1) 04/16/17 06:00 Total Bilirubin 0.4 mg/dL (0.2-1.0) 04/16/17 06:00 AST 34 U/L (15-37) 04/16/17 06:00 ALT 57 U/L (12-78) D 04/16/17 06:00 Alkaline Phosphatase 97 U/L (45-117) 04/16/17 06:00 Total Protein 6.1 g/dl (6.4-8.2) L 04/16/17 06:00 Albumin 2.7 g/dl (3.4-5.0) L 04/16/17 06:00 CARDIAC ENZYMES Creatine Kinase 79 IU/L (26-140) 04/10/17 11:45 Troponin I 0.08 ng/ml (0.03-0.50) 04/10/17 11:45 Current Medications Generic Name Dose Route Start Last Admin Trade Name Freq PRN Reason Stop Dose Admin Acetaminophen 325 mg 04/14/17 11:00 04/15/17 23:33 Tylenol - PO 325 mg Q6H PRN Administration Apixaban 2.5 mg 04/14/17 22:00 04/15/17 21:37 Eliquis - PO 2.5 mg BID ROSEANNE Administration Atorvastatin Calcium 10 mg 04/10/17 22:00 04/15/17 21:36 Lipitor - PO 10 mg HS ROSEANNE Administration Azithromycin 500 mg 04/15/17 12:45 04/15/17 13:07 Zithromax - PO 04/16/17 10:01 500 mg DAILY ROSEANNE Administration Diltiazem HCl 30 mg 04/13/17 14:00 04/15/17 23:33 Cardizem - PO 30 mg QID ROSEANNE Administration Furosemide 40 mg 04/16/17 10:00 Lasix Injection - IVPUSH DAILY ROSEANNE Guaifenesin 600 mg 04/10/17 22:00 04/15/17 21:37 Mucinex - PO 600 mg BID ROSEANNE Administration Guaifenesin 10 ml 04/11/17 10:59 04/15/17 09:36 Robitussin Dm - PO 10 ml Q4H PRN Administration COUGH Metoprolol Tartrate 25 mg 04/12/17 12:00 04/16/17 05:35 Lopressor - PO 25 mg Q6HPO ROSEANNE Administration Nystatin 500,000 units 04/16/17 12:00 Nystatin Oral Suspension - PO 04/23/17 23:59 Q6HPO ROSEANNE Ropinirole HCl 1 mg 04/10/17 22:00 04/15/17 21:36 Requip - PO 1 mg HS ROSEANNE Administration Timolol Maleate 1 drop 04/10/17 22:00 04/15/17 21:37 Timoptic 0.5% OU 1 drop BID ROSEANNE Administration Home Medications Medication Instructions Recorded Allopurinol [Zyloprim -] 100 mg PO DAILY 04/10/17 Aspirin [Aspirin EC] 81 mg PO DAILY 04/10/17 Ropinirole HCl [Requip] 1 mg PO DAILY 04/10/17 Simvastatin 20 mg PO DAILY 04/10/17 Timolol 0.5% [Timoptic 0.5%] 1 drop OU BID 04/10/17 Apixaban [Eliquis] 2.5 mg PO BID #28 tablet 04/14/17 Diltiazem Cd [Cardizem Cd -] 120 mg PO DAILY #30 cap.cd.24h 04/14/17 Metoprolol Succinate [Toprol Xl] 50 mg PO BID #28 tab.er.24h 04/14/17 Laboratory Tests 04/10/17 04/11/17 11:45 05:35 BUN 29 H D 22 H Creatinine 2.0 H D 1.3 H B-Natriuretic Peptide 07235.11 H CHEST: positive for rhonchi BL Heart: S1S2 positive, Irregularly irregular ,rate is 97 today Extremeties: no edema 04/11 Echo: LV normal, RV normal, LAE, mild MR, mild TR, mild pHTN, EF 78% ( hyperdynamic) ASSESSMENT AND PLAN: 87 year-old woman with a significant PMH of HTN and HLD, admitted with new onset rapid atrial fibrillation, suspected acute bronchitis, and newly diagnosed diastolic heart failure. # Acute newly diagnosed atrial fibrillation with RVR, rate is better controlled today of 97. On Eliquis 2.5mg BId, on metoprolol 50mg po bid and cardizem 120 as per recommendation of Termite Technician . # Acute diastolic heart failure on IV lasix and spirinolactone 25mg po daily , presented with BNP of 11,578. CXR positive for congestion improving # ARF improving cr2.0-->1.3 today repeat in am # Acute Bronchitis on azithromycin, last dose today , monitor since CXR possible for Infiltrate # Hx of Chronic back pain on Tylenol continue DVT prophylaxis: on Eliquis Dispo: will likely need SNF; full code.
[2017-04-16 09:18] LABS: PLATELET ESTIMATE ADEQUATE (NORMAL)
[2017-04-16] MEDS: guaiFENesin/D-METHORPHAN HB 10 ML UNIT-DOSE CUPS PO PRN (09:42)
[2017-04-16] MEDS: dilTIAZem HCL 30 MG TABLET (FP) PO SCH (09:42)
[2017-04-16] MEDS: guaiFENesin 600 MG TABLET.ER (FP) PO SCH (09:42)
[2017-04-16] MEDS: APIXABAN 2.5 MG TABLET PO SCH ×2 (09:42→21:06)
[2017-04-16] MEDS: AZITHROMYCIN 250 MG TABLET (FP) PO SCH (09:43)
[2017-04-16] MEDS: ACETAMINOPHEN 325 MG TABLET (FP) PO PRN ×2 (09:45→17:32)
--- NOTE | 2017-04-16 09:45 | PN ---
Physical Exam: SUBJECTIVE: Patient seen and examined by me at bedside. No overnight events noted. Patients heart rate remains between 90's-107. Reports her cough is still there but has improved significantly. She offers no complaints and denies any fever, chills, nausea, vomiting, abdominal pain, chest pain, palpitations, abdominal pain, diarrhea, headaches. OBJECTIVE: Vital Signs Period Temp Pulse Resp BP Sys/Kraus Pulse Ox Last 24 Hr 97.4 F-97.9 F 71-97 20-20 102-132/50-69 99 GENERAL: The patient is awake but drowsy, alert, fully oriented, in no acute distress.. LUNGS: Rhonchi throughout lung jewell bilaterally, no accessory muscle use. HEART: Regular rate, irregularly irregular rhythm, normal S1 and S2 without murmur, rub or gallop. ABDOMEN: Soft, nontender, nondistended, normoactive bowel sounds, no guarding. EXTREMITIES: No peripheral edema. Chronic venous stasis of bilateral lower extremities NEUROLOGICAL: Normal speech, no facial droop. Laboratory Results - last 24 hr 04/16/17 04/16/17 06:00 06:00 WBC 11.5 H RBC 4.04 Hgb 11.2 Hct 34.0 MCV 84.1 MCHC 32.9 RDW 14.8 Plt Count 490 H D MPV 7.9 Neutrophils % 63.0 Lymphocytes % 25.0 D Monocytes % 10.0 Eosinophils % 1.0 Band Neutrophils 1.0 D Differential Comment Manual diff done Platelet Estimate Adequate Sodium 143 Potassium 4.1 Chloride 105 Carbon Dioxide 31 Anion Gap 7 L BUN 20 H Creatinine 1.3 H Creat Clearance w eGFR 38.66 Random Glucose 93 Calcium 9.1 Magnesium 1.8 Total Bilirubin 0.4 AST 34 ALT 57 D Alkaline Phosphatase 97 Total Protein 6.1 L Albumin 2.7 L Active Medications Generic Name Dose Route Start Last Admin Trade Name Freq PRN Reason Stop Dose Admin Acetaminophen 325 mg 04/14/17 11:00 04/15/17 23:33 Tylenol - PO 325 mg Q6H PRN Administration Apixaban 2.5 mg 04/14/17 22:00 04/15/17 21:37 Eliquis - PO 2.5 mg BID ROSEANNE Administration Atorvastatin Calcium 10 mg 04/10/17 22:00 04/15/17 21:36 Lipitor - PO 10 mg HS ROSEANNE Administration Azithromycin 500 mg 04/15/17 12:45 04/15/17 13:07 Zithromax - PO 04/16/17 10:01 500 mg DAILY ROSEANNE Administration Diltiazem HCl 30 mg 04/13/17 14:00 04/15/17 23:33 Cardizem - PO 30 mg QID ROSEANNE Administration Furosemide 40 mg 04/16/17 10:00 Lasix Injection - IVPUSH DAILY ROSEANNE Guaifenesin 600 mg 04/10/17 22:00 04/15/17 21:37 Mucinex - PO 600 mg BID ROSEANNE Administration Guaifenesin 10 ml 04/11/17 10:59 04/15/17 09:36 Robitussin Dm - PO 10 ml Q4H PRN Administration COUGH Metoprolol Tartrate 25 mg 04/12/17 12:00 04/16/17 05:35 Lopressor - PO 25 mg Q6HPO ROSEANNE Administration Nystatin 500,000 units 04/16/17 12:00 Nystatin Oral Suspension - PO 04/23/17 23:59 Q6HPO ROSEANNE Ropinirole HCl 1 mg 04/10/17 22:00 04/15/17 21:36 Requip - PO 1 mg HS ROSEANNE Administration Timolol Maleate 1 drop 04/10/17 22:00 04/15/17 21:37 Timoptic 0.5% OU 1 drop BID ROSEANNE Administration Imaging: EKG (04/10/17)- A.fib @ 145 BPM, no ST-T elevations or depressions. Chest x-ray (04/10/17)- cardiomegaly, no acute intrathoracic pathology present PA and Lateral x-ray (04/11/17): Large heart. Sclerotic knob. Some atelectatic changes in the retrocardiac area. Chest X-ray (04/14/17): Cardiomegaly with some congestive changes. Negative for pleural effusions, pneumothorax, pneumonia Chest X-ray (04/16/17): Since 04/14/2017, there is progressive density in the retrocardiac area which has the appearance of fluid with atelectasis and/or infiltrate. There is a weak inspiratory effort with resultant large heart, sclerotic knob and prominent right hilum. The right lung is clear. The right angle is sharp. Incidental note is made of tubing projected over the right upper chest. Impression: Weak inspiration. Left base changes. ASSESSMENT/PLAN: Patient is an 87 year old female with a PMHx of HTN, HLD, Glaucoma, restless leg syndrome who presented for worsening cough and URI symptoms. Patient was found to have new onset of A.fib with RVR and ABDOUL. Patient admitted for further monitoring and management. New Onset of A.fib w/RVR-uncontrolled -[id number] 4 -Likely secondary to infectious source -No overnight events noted, patient remains between 90's-107 -Continue Metoprolol 25mg QID for heart rate control -Continue Eliquis 5mg BID -Continue Cardizem 30mg QID, as per Cardiology -ECHO wnl with no LV dysfunction -Continue CARDIAC Monitoring -Cardiology consult appreciated -Will discharge with rate control medications and anticoagulation Cough secondary to Possible URI likely Bronchitis- Improving -BNP elevated at >11,000 but can be due to ABDOUL or old age and Obesity -Cough improved -Chest X-ray pending for today -Last dose Azithromycin 500mg day #5 -Continue Robitussin Acute Diastolic Heart Failure -Chest X-ray (04/14/17) reveals congestive changes with crackles on lung bases -Continue Lasix 40mg IV daily. Monitor Creatinine daily -Start Aldactone 25mg daily -Repeat Chest X-ray today -02 pre and post exercise pending Osteoarthritis- Chronic -Patient continues to have tachycardia on exertion likely exacerbated by hip pain -Tylenol 350mg Q6H ordered Acute Delirium vs. ing- Improved ABDOUL -Improving -Secondary to Dehydration -Baseline creatinine 1.2 -Creatinine 1.3 today. Patient on Lasix -Avoid Nephrotoxic medications -Continue to monitor creatinine HTN-Chronic -Continue Metoprolol 25mg QID -Hold Valsartan due to nephrotoxicity -Continue to monitor BP HLD-Chronic -Continue Atorvastatin 10mg daily Restless Leg Syndrome -Ropinirole 1 mg po qhs Glaucoma- Chronic -Continue Timolol eyedrops F/E/N -On no Fluids -Electrolytes wnl -Sodium controlled diet Prophylaxis -Eliquis 2.5mg BID for DVT Disposition -Better controlled rate overnight. Will continue to give Lasix for acute diastolic dysfunction. Will need to remain inpatient today Visit type - Emergency Visit Emergency Visit: Yes ED Registration Date: 04/10/17 Care time: The patient presented to the Emergency Department on the above date and was hospitalized for further evaluation of their emergent condition. - New Patient This patient is new to me today: No - Critical Care Critical Care patient: No
[2017-04-16] MEDS: TIMOLOL 0.5% OPHTHALMIC SOL 5 ML BOTTLE OU SCH ×2 (09:46→21:07)
[2017-04-16] MEDS ORDERED: FUROSEMIDE 40 MG/4 ML INJECTABLE VIAL IVPUSH SCH (10:00)
--- NOTE | 2017-04-16 10:17 | EKG ---
Test Reason : Blood Pressure : / mmHG Vent. Rate : 089 BPM Atrial Rate : 227 BPM P-R Int : 000 ms QRS Dur : 108 ms QT Int : 360 ms P-R-T Axes : 000 -33 103 degrees QTc Int : 438 ms ATRIAL FIBRILLATION LEFT AXIS DEVIATION ANTERIOR INFARCT , AGE UNDETERMINED NONSPECIFIC ST ABNORMALITY ABNORMAL ECG Confirmed by DIMITRIOS PUGA MD ([id number]) on 04/16/2017 10:17:09 AM Referred By: Horace AKINS Confirmed By:DIMITRIOS PUGA MD
--- NOTE | 2017-04-16 12:20 | PN ---
Progress Note, Physician History of Present Illness: Rate-controlled afib with improvement of palpitations and dyspnea - Current Medication List Current Medications: Active Medications Acetaminophen (Tylenol -) 325 mg PO Q6H PRN Last Admin: 04/16/17 09:45 Dose: 325 mg Apixaban (Eliquis -) 2.5 mg PO BID [facility] Last Admin: 04/16/17 09:42 Dose: 2.5 mg Atorvastatin Calcium (Lipitor -) 10 mg PO [facility] Last Admin: 04/15/17 21:36 Dose: 10 mg Diltiazem HCl (Cardizem -) 30 mg PO QID [facility] Last Admin: 04/16/17 09:42 Dose: 30 mg Furosemide (Lasix Injection -) 40 mg IVPUSH DAILY [facility] Last Admin: 04/16/17 09:42 Dose: 40 mg Guaifenesin (Mucinex -) 600 mg PO BID [facility] Last Admin: 04/16/17 09:42 Dose: 600 mg Guaifenesin (Robitussin Dm -) 10 ml PO Q4H PRN PRN Reason: COUGH Last Admin: 04/16/17 09:42 Dose: 10 ml Metoprolol Tartrate (Lopressor -) 25 mg PO Q6HPO [facility] Last Admin: 04/16/17 05:35 Dose: 25 mg Nystatin (Nystatin Oral Suspension -) 500,000 units PO Q6HPO [facility] Stop: 04/23/17 23:59 Ropinirole HCl (Requip -) 1 mg PO [facility] Last Admin: 04/15/17 21:36 Dose: 1 mg Timolol Maleate (Timoptic 0.5%) 1 drop OU BID [facility] Last Admin: 04/16/17 09:46 Dose: 1 drop - Objective Vital Signs: Vital Signs Temperature 98.5 F 04/16/17 10:00 Pulse Rate 75 04/16/17 10:00 Respiratory Rate 20 04/16/17 10:00 Blood Pressure 128/56 04/16/17 10:00 O2 Sat by Pulse Oximetry (%) 100 04/16/17 09:00 Constitutional: Yes: No Distress, Calm Neck: Yes: Supple Cardiovascular: Yes: Pulse Irregular Respiratory: Yes: Regular, Diminished, On Nasal O2 Gastrointestinal: Yes: Normal Bowel Sounds, Soft Edema: No Labs: CBC, BMP 04/16/17 06:00 04/16/17 06:00 INR, PTT INR 1.07 (0.82-1.09) 04/10/17 11:45 - ....Imaging Chest X-ray: Report Reviewed (Left base changes) EKG: Report Reviewed (Afib) Problem List - Problems (1) Atrial fibrillation with RVR Code(s): I48.91 - UNSPECIFIED ATRIAL FIBRILLATION (2) HTN (hypertension) Code(s): I10 - ESSENTIAL (PRIMARY) HYPERTENSION Qualifiers: Hypertension type: essential hypertension Qualified Code(s): I10 - Essential (primary) hypertension (3) Hypercholesterolemia Code(s): E78.00 - PURE HYPERCHOLESTEROLEMIA, UNSPECIFIED (4) Diastolic dysfunction Code(s): I51.9 - HEART DISEASE, UNSPECIFIED (5) Leukocytosis Code(s): D72.829 - ELEVATED WHITE BLOOD CELL COUNT, UNSPECIFIED Qualifiers: Leukocytosis type: unspecified Qualified Code(s): D72.829 - Elevated white blood cell count, unspecified (6) Chronic kidney disease Code(s): N18.9 - CHRONIC KIDNEY DISEASE, UNSPECIFIED Qualifiers: Chronic kidney disease stage: stage 2 (mild) Qualified Code(s): N18.2 - Chronic kidney disease, stage 2 (mild) Assessment/Plan 04/11/2017 Echo: Normal LV size and fxn, mild LAE, mild MR, TR, RVSP 30-40 mmHg 1. Persistent trial fibrillation with RVR 2. Hypertension 3. Hypercholesterolemia 4. CKD 5. Diastolic dysfunction PLAN: 1. Continue Eliquis 2.5 mg BID, Lipitor 10 qhs 2. Consolidate Lopressor 50 bid and Cardizem CD 120 qd for rate control 3. Consider further rhythm control measures with FABIENNE +/- synchronized cardioversion if clinically indicated, but can be done as outpatient. 4. Change Lasix to Aldactone 25 qd with monitor renal function and electrolytes
[2017-04-16] MEDS ORDERED: FUROSEMIDE 40 MG/4 ML INJECTABLE VIAL IVPB ONE (13:57)
[2017-04-16] MEDS: NYSTATIN 500,000 UNITS/5 ML SUSPENSION PO SCH ×2 (14:31→17:32)
[2017-04-16] MEDS: SPIRONOLACTONE 25 MG TABLET (FP) PO SCH (14:31)
[2017-04-16] MEDS ORDERED: PT OWN MED DRAWER 7, Y5N ONE (20:59)
[2017-04-16] MEDS: rOPINIRole HCL 1 MG TABLET (FP) PO SCH (21:06)
[2017-04-16] MEDS: ATORVASTATIN CA 10 MG TABLET (FP) PO SCH (21:06)
[2017-04-17] MEDS: NYSTATIN 500,000 UNITS/5 ML SUSPENSION PO SCH ×4 (01:08→18:22)
[2017-04-17] MEDS ORDERED: METOPROLOL TARTRATE 25 MG TABLET (FP) PO ONE (05:09)
[2017-04-17] MEDS: guaiFENesin/D-METHORPHAN HB 10 ML UNIT-DOSE CUPS PO PRN (05:27)
[2017-04-17 08:02] LABS: MCH 27.2 pg (25.7-33.7); MCHC 32.4 g/dl (32.0-36.0); MEAN PLT VOLUME 7.8 fl (7.5-11.1); PLATELET COUNT 435 K/MM3 (134-434); RDW 14.2 % (11.6-15.6); WHITE BLOOD COUNT 12.6 K/mm3 (4.0-10.0)
[2017-04-17 08:42] LABS: ANION GAP 6 (8-16); CALCIUM 9.2 mg/dL (8.5-10.1); CO2 32 mmol/L (21-32); CREATININE 1.3 mg/dL (0.55-1.02); GLUCOSE,RANDOM 100 mg/dL (74-106)
[2017-04-17] MEDS ORDERED: FUROSEMIDE 40 MG/4 ML INJECTABLE VIAL IVPUSH SCH (10:00)
--- NOTE | 2017-04-17 10:17 | PN ---
Progress Note, Physician Chief Complaint: Not in distress Sitting in chair History of Present Illness: Patient was seen and examined. Awake and alert. Chart was reviewed Denies chest pain, SOB or palpitations - Current Medication List Current Medications: Active Medications Acetaminophen (Tylenol -) 325 mg PO Q6H PRN Last Admin: 04/16/17 17:32 Dose: 325 mg Apixaban (Eliquis -) 2.5 mg PO BID [facility] Last Admin: 04/16/17 21:06 Dose: 2.5 mg Atorvastatin Calcium (Lipitor -) 10 mg PO HS [facility] Last Admin: 04/16/17 21:06 Dose: 10 mg Diltiazem HCl (Cardizem Cd -) 120 mg PO DAILY [facility] Last Admin: 04/16/17 14:31 Dose: 120 mg Furosemide (Lasix Injection -) 40 mg IVPUSH DAILY [facility] Guaifenesin (Robitussin Dm -) 10 ml PO Q4H PRN PRN Reason: COUGH Last Admin: 04/17/17 05:27 Dose: 10 ml Metoprolol Tartrate (Lopressor -) 50 mg PO BID [facility] Last Admin: 04/16/17 21:06 Dose: 50 mg Nystatin (Nystatin Oral Suspension -) 500,000 units PO Q6HPO [facility] Stop: 04/23/17 23:59 Last Admin: 04/17/17 05:27 Dose: 500,000 units Ropinirole HCl (Requip -) 1 mg PO HS [facility] Last Admin: 04/16/17 21:06 Dose: 1 mg Spironolactone (Aldactone -) 25 mg PO DAILY [facility] Last Admin: 04/16/17 14:31 Dose: 25 mg Timolol Maleate (Timoptic 0.5%) 1 drop OU BID [facility] Last Admin: 04/16/17 21:07 Dose: 1 drop - Objective Vital Signs: Vital Signs Temperature 97.8 F 04/17/17 06:00 Pulse Rate 91 H 04/17/17 06:00 Respiratory Rate 20 04/17/17 06:00 Blood Pressure 120/64 04/17/17 06:00 O2 Sat by Pulse Oximetry (%) 98 04/16/17 22:00 Neck: Yes: Supple Cardiovascular: Yes: Pulse Irregular, S1, S2 Respiratory: Yes: CTA Bilaterally Gastrointestinal: Yes: Normal Bowel Sounds, Soft. No: Tenderness Edema: No Additional Findings/Remarks: - Review of Systems Constitutional: denies: Chills, Fever Cardiovascular: denies: Palpitations. denies: Chest Pain, Shortness of Breath Respiratory: denies: Cough. denies: Hemoptysis, Orthopnea, PND, SOB, SOB on Exertion, Wheezing Gastrointestinal: denies: Abdominal Pain, Constipation, Diarrhea, Melena, Nausea , Rectal Bleeding, Vomiting Musculoskeletal: reports: Joint Pain Neurological: denies: Dizziness, Headache, Seizure, Syncope, Unsteady Gait, Weakness Labs: CBC, BMP 04/17/17 06:58 04/17/17 06:58 Problem List - Problems (1) Atrial fibrillation with RVR Code(s): I48.91 - UNSPECIFIED ATRIAL FIBRILLATION (2) HTN (hypertension) Code(s): I10 - ESSENTIAL (PRIMARY) HYPERTENSION Qualifiers: Qualified Code(s): I10 - Essential (primary) hypertension (3) Hypercholesterolemia Code(s): E78.00 - PURE HYPERCHOLESTEROLEMIA, UNSPECIFIED (4) Osteoarthritis Code(s): M19.90 - UNSPECIFIED OSTEOARTHRITIS, UNSPECIFIED SITE Qualifiers: Qualified Code(s): M17.11 - Unilateral primary osteoarthritis, right knee Assessment/Plan 1. Persistent trial fibrillation with RVR 2. Hypertension 3. Hypercholesterolemia 4. CKD 5. Diastolic dysfunction PLAN: 1. Continue Eliquis 2.5 mg BID and Lipitor 10 mg qhs 2. Continue Lopressor and Cardizem CD for rate control - uptitrate 3. Consider further rhythm control measures with FABIENNE +/- synchronized cardioversion if clinically indicated, but can be done as outpatient. 4. Currently on Aldactone 25 mg qd with monitoring renal function and electrolytes Once better rate controlled, consider discharge planning and follow up in the office Further plans are to follow Amandeep Alonso MD
[2017-04-17] MEDS: APIXABAN 2.5 MG TABLET PO SCH ×2 (10:46→22:05)
[2017-04-17] MEDS: SPIRONOLACTONE 25 MG TABLET (FP) PO SCH (10:46)
[2017-04-17] MEDS: METOPROLOL TARTRATE 25 MG TABLET (FP) PO SCH ×2 (10:46→22:05)
[2017-04-17] MEDS: TIMOLOL 0.5% OPHTHALMIC SOL 5 ML BOTTLE OU SCH ×2 (10:47→22:06)
--- NOTE | 2017-04-17 12:51 | PN ---
Teaching Attending Note Name of Resident: iLvia Sharma ATTENDING PHYSICIAN STATEMENT I saw and evaluated the patient. I reviewed the resident's note and discussed the case with the resident. I agree with the resident's findings and plan as documented. SUBJECTIVE: reports SOB on minimal exertion and palpitations. Telemetry reviewed and rate is uncontrolled when patient is ambulating with PT OBJECTIVE: Vital Signs Temperature 97.8 F 04/17/17 10:00 Pulse Rate 56 L 04/17/17 10:20 Respiratory Rate 20 04/17/17 10:00 Blood Pressure 125/48 04/17/17 10:00 O2 Sat by Pulse Oximetry (%) 95 04/17/17 10:20 GENERAL: The patient is awake but drowsy, alert, fully oriented, in no acute distress.. LUNGS: Scattered basilar ronchi HEART: Regular rate, irregularly irregular rhythm, normal S1 and S2 without murmur, rub or gallop. ABDOMEN: Soft, nontender, nondistended, normoactive bowel sounds, no guarding. EXTREMITIES: No peripheral edema. Chronic venous stasis of bilateral lower extremities NEUROLOGICAL: Normal speech, no facial droop. Abnormal Lab Results 04/17/17 04/17/17 06:58 06:58 WBC 12.6 H Hgb 10.5 L Plt Count 435 H Anion Gap 6 L BUN 22 H Creatinine 1.3 H Chest X-ray (04/16/17): Since 04/14/2017, there is progressive density in the retrocardiac area which has the appearance of fluid with atelectasis and/or infiltrate. There is a weak inspiratory effort with resultant large heart, sclerotic knob and prominent right hilum. The right lung is clear. The right angle is sharp. Incidental note is made of tubing projected over the right upper chest. Impression: Weak inspiration. Left base changes. ASSESSMENT AND PLAN: New Onset of A.fib w/RVR- controlled at rest however ranges around 150bpm during physical activity . Vagal response could be a contributing factor. [id number] 4. Echo shows mild PHTN. * metoprolol is increased to 75 BID * cardizem 120 daily * if remains uncontrolled will consider amio * compression stockings * Eliquis for anticoagulation Acute Diastolic Heart Failure-Chest X-ray (04/14/17) reveals congestive changes with crackles on lung bases. Improving . -received Lasix 40mg IV today -Aldactone 25mg daily ABDOUL - possibly pre renal -stable - BMP daily HTN - optimally controlled HLD-Chronic -Continue Atorvastatin 10mg daily
--- NOTE | 2017-04-17 13:45 | PN ---
Physical Exam: SUBJECTIVE: Patient seen and examined by me at bedside. Patient continues to have uncontrolled heart rate reaching as high as 150's. Patient does have shortness of breath and tachycardia on exertion. Otherwise, patient denies fever, chills, nausea, vomiting, abdominal pain, chest pain, dizziness, headaches, visual changes. OBJECTIVE: Vital Signs Period Temp Pulse Resp BP Sys/Kraus Pulse Ox Last 24 Hr 97.6 F-98.2 F 56-105 20-20 111-125/42-69 92-98 GENERAL: The patient is awake, alert, fully oriented, in no acute distress.. LUNGS: Rhonchi and crackles throughout lung jewell bilaterally, no accessory muscle use. HEART: Regular rate, irregularly irregular rhythm, normal S1 and S2 without murmur, rub or gallop. ABDOMEN: Soft, nontender, nondistended, normoactive bowel sounds, no guarding. EXTREMITIES: No peripheral edema. Chronic venous stasis of bilateral lower extremities NEUROLOGICAL: Normal speech, no facial droop. Laboratory Results - last 24 hr 04/17/17 04/17/17 06:58 06:58 WBC 12.6 H RBC 3.86 Hgb 10.5 L Hct 32.4 MCV 84.0 MCHC 32.4 RDW 14.2 Plt Count 435 H MPV 7.8 Sodium 143 Potassium 3.8 Chloride 105 Carbon Dioxide 32 Anion Gap 6 L BUN 22 H Creatinine 1.3 H Random Glucose 100 Calcium 9.2 Active Medications Generic Name Dose Route Start Last Admin Trade Name Freq PRN Reason Stop Dose Admin Acetaminophen 325 mg 04/14/17 11:00 04/16/17 17:32 Tylenol - PO 325 mg Q6H PRN Administration Apixaban 2.5 mg 04/14/17 22:00 04/17/17 10:46 Eliquis - PO 2.5 mg BID ROSEANNE Administration Atorvastatin Calcium 10 mg 04/10/17 22:00 04/16/17 21:06 Lipitor - PO 10 mg HS RO[facility]AN[facility] Administration Diltiazem HCl 120 mg 04/16/17 12:30 04/17/17 10:46 Cardizem Cd - PO 120 mg DAILY [facility] Administration Guaifenesin 10 ml 04/11/17 10:59 04/17/17 05:27 Robitussin Dm - PO 10 ml Q4H PRN Administration COUGH Metoprolol Tartrate 75 mg 04/17/17 11:30 Lopressor - PO BID [facility] Nystatin 500,000 units 04/16/17 12:00 04/17/17 12:20 Nystatin Oral Suspension - PO 04/23/17 23:59 500,000 units Q6HPO RO[facility] Administration Ropinirole HCl 1 mg 04/10/17 22:00 04/16/17 21:06 Requip - PO 1 mg HS [facility] Administration Spironolactone 25 mg 04/16/17 12:30 04/17/17 10:46 Aldactone - PO 25 mg DAILY [facility] Administration Timolol Maleate 1 drop 04/10/17 22:00 04/17/17 10:47 Timoptic 0.5% OU 1 drop BID [facility] Administration Imaging: EKG (04/10/17)- A.fib @ 145 BPM, no ST-T elevations or depressions. Chest x-ray (04/10/17)- cardiomegaly, no acute intrathoracic pathology present PA and Lateral x-ray (04/11/17): Large heart. Sclerotic knob. Some atelectatic changes in the retrocardiac area. Chest X-ray (04/14/17): Cardiomegaly with some congestive changes. Negative for pleural effusions, pneumothorax, pneumonia Chest X-ray (04/16/17): Since 04/14/2017, there is progressive density in the retrocardiac area which has the appearance of fluid with atelectasis and/or infiltrate. There is a weak inspiratory effort with resultant large heart, sclerotic knob and prominent right hilum. The right lung is clear. The right angle is sharp. Incidental note is made of tubing projected over the right upper chest. Impression: Weak inspiration. Left base changes. ASSESSMENT/PLAN: Patient is an 87 year old female with a PMHx of HTN, HLD, Glaucoma, restless leg syndrome who presented for worsening cough and URI symptoms. Patient was found to have new onset of A.fib with RVR and ABDOUL. Patient admitted for further monitoring and management. New Onset of A.fib w/RVR-uncontrolled -[id number] -Likely secondary to infectious source -Patient continues to have uncontrolled rate -Metoprolol increased to 75mg BID -Continue Eliquis 2.5mg BID -Continue Cardizem 120mg, as per Cardiology -Consider Amiodarone if rate not controlled -ECHO wnl with no LV dysfunction -Continue CARDIAC Monitoring -Cardiology consult appreciated -Will discharge with rate control medications and anticoagulation Cough secondary to Possible URI likely Bronchitis- Improving -BNP elevated at >11,000 but can be due to ABDOUL or old age and Obesity -Cough improved -Monitor off abx -Continue Robitussin Acute Diastolic Heart Failure- Improving -Chest X-ray (04/14/17) reveals congestive changes with crackles on lung bases -Monitor Creatinine daily -Continue Aldactone 25mg daily Osteoarthritis- Chronic -Patient continues to have tachycardia on exertion likely exacerbated by hip pain -Tylenol 350mg Q6H ordered -Physical Therapy Acute Delirium vs. Sundowning- Improved Acute on Chronic kidney disease -Stable -Secondary to Dehydration -Baseline creatinine 1.2 -Creatinine 1.3 today. -Avoid Nephrotoxic medications -Continue to monitor creatinine HTN-Chronic and optimal -Continue Metoprolol 75md BID -Hold Valsartan due to nephrotoxicity -Continue to monitor BP HLD-Chronic -Continue Atorvastatin 10mg daily Restless Leg Syndrome -Ropinirole 1 mg po qhs Glaucoma- Chronic -Continue Timolol eyedrops F/E/N -On no Fluids -Electrolytes wnl -Sodium controlled diet Prophylaxis -Eliquis 2.5mg BID for DVT Disposition -Still has uncontrolled heart rate. Visit type - Emergency Visit Emergency Visit: Yes ED Registration Date: 04/10/17 Care time: The patient presented to the Emergency Department on the above date and was hospitalized for further evaluation of their emergent condition. - New Patient This patient is new to me today: No - Critical Care Critical Care patient: No
[2017-04-17] MEDS ORDERED: PT OWN MED DRAWER 7, Y5N ONE (22:01)
[2017-04-17] MEDS: ATORVASTATIN CA 10 MG TABLET (FP) PO SCH (22:05)
[2017-04-17] MEDS: rOPINIRole HCL 1 MG TABLET (FP) PO SCH (22:05)
[2017-04-18] MEDS: NYSTATIN 500,000 UNITS/5 ML SUSPENSION PO SCH ×3 (00:05→13:10)
--- NOTE | 2017-04-18 06:39 | PN ---
Progress Note (short form) - Note Progress Note: Chief Complaint: Events noted, notes reviewed, denies any chest pain or dyspnea History of Present Illness: Seen and examined on telemetry. Events noted, notes reviewed, denies any chest pain or dyspnea Medications: Current Medications Acetaminophen (Tylenol -) 325 mg PO Q6H PRN Last Admin: 04/16/17 17:32 Dose: 325 mg Apixaban (Eliquis -) 2.5 mg PO BID [facility] Last Admin: 04/17/17 22:05 Dose: 2.5 mg Atorvastatin Calcium (Lipitor -) 10 mg PO HS [facility] Last Admin: 04/17/17 22:05 Dose: 10 mg Diltiazem HCl (Cardizem Cd -) 120 mg PO DAILY [facility] Last Admin: 04/17/17 10:46 Dose: 120 mg Guaifenesin (Robitussin Dm -) 10 ml PO Q4H PRN PRN Reason: COUGH Last Admin: 04/17/17 05:27 Dose: 10 ml Metoprolol Tartrate (Lopressor -) 75 mg PO BID [facility] Last Admin: 04/17/17 22:05 Dose: 75 mg Nystatin (Nystatin Oral Suspension -) 500,000 units PO Q6HPO [facility] Stop: 04/23/17 23:59 Last Admin: 04/18/17 05:56 Dose: 500,000 units Ropinirole HCl (Requip -) 1 mg PO [facility] Last Admin: 04/17/17 22:05 Dose: 1 mg Spironolactone (Aldactone -) 25 mg PO DAILY [facility] Last Admin: 04/17/17 10:46 Dose: 25 mg Timolol Maleate (Timoptic 0.5%) 1 drop OU BID [facility] Last Admin: 04/17/17 22:06 Dose: 1 drop Review of Systems Constitutional: denies Chills or Fever Respiratory: denies Dyspnea or Cough Cardiovascular: As noted above Gastrointestinal: denies Nausea, Vomiting, Diarrhea or Constipation Genitourinary: No Symptoms Reported Musculoskeletal: No Symptoms Reported Vital Signs: Last Vital Signs Temp Pulse Resp BP Pulse Ox 97.8 F 88 16 122/54 96 04/18/17 05:50 04/18/17 05:50 04/18/17 05:50 04/18/17 05:50 04/17/17 22:00 Neck: Supple Negative JVD Respiratory: Diminished Breath sounds at the Bases Cardiovascular: S1 S2 irregularly irregular Gastrointestinal: Soft benign Normal Bowel Sounds Ext: No Edema Labs: CBC, BMP 04/18/17 06:30 Assessment/Plan ASSESSMENT: 1. Persistent atrial fibrillation with periods of rapid ventricular response [id number] score of 4-5 on NOAC's 2. Diastolic left ventricular dysfunction with chronic class 0-I [place] [employer] classification left ventricular failure 3. Hypertension 4. Hypercholesterolemia 5. CKD PLAN: 1. Continue Eliquis at the above-noted dosage, 2.5 mg twice daily 2. Continue Lopressor 3. Continue Cardizem CD 4. Continue Lipitor 5. Continue Aldactone with close monitoring of renal function 6. As outlined in prior notes consideration for future FABIENNE guided cardioversion , as outpatient Devendra Mayen MD
[2017-04-18 07:33] LABS: MCH 27.6 pg (25.7-33.7); MCHC 32.7 g/dl (32.0-36.0); MEAN CELL VOLUME 84.3 fl (80-96); MEAN PLT VOLUME 7.9 fl (7.5-11.1); PLATELET COUNT 472 K/MM3 (134-434); RDW 14.8 % (11.6-15.6); WHITE BLOOD COUNT 10.8 K/mm3 (4.0-10.0)
[2017-04-18 08:32] LABS: ANION GAP 7 (8-16); CALCIUM 9.2 mg/dL (8.5-10.1); CO2 36 mmol/L (21-32); CREATININE 1.4 mg/dL (0.55-1.02); GLUCOSE,RANDOM 111 mg/dL (74-106)
[2017-04-18 10:04] VITALS: BP 119/58; PULSE 81; TEMP 97.6
[2017-04-18] MEDS: METOPROLOL TARTRATE 25 MG TABLET (FP) PO SCH (10:10)
[2017-04-18] MEDS: APIXABAN 2.5 MG TABLET PO SCH (10:10)
[2017-04-18] MEDS: SPIRONOLACTONE 25 MG TABLET (FP) PO SCH (10:10)
[2017-04-18] MEDS: TIMOLOL 0.5% OPHTHALMIC SOL 5 ML BOTTLE OU SCH (10:11)
--- NOTE | 2017-04-18 10:44 | DS ---
Physical Exam: SUBJECTIVE: Patient seen and examined by me at bedside. No overnight events noted. Patient was rate controlled in the last 24 hours. She offers no complaints and reports her cough has improved significantly. Otherwise, patient denies fever, chills, nausea, vomiting, abdominal pain, chest pain, palpitations, shortness of breath, headaches, dizziness, loss of consciousness. OBJECTIVE: Vital Signs Period Temp Pulse Resp BP Sys/Kraus Pulse Ox Last 24 Hr 97.6 F-98.2 F 70-90 16-20 108-123/47-78 95-100 PHYSICAL EXAM GENERAL: The patient is awake, alert, fully oriented, in no acute distress.. LUNGS: Rhonchi and diminished breath sounds throughout lung jewell bilaterally, no accessory muscle use. HEART: Regular rate, irregularly irregular rhythm, normal S1 and S2 without murmur, rub or gallop. ABDOMEN: Soft, nontender, nondistended, normoactive bowel sounds, no guarding. EXTREMITIES: No peripheral edema. Chronic venous stasis of bilateral lower extremities NEUROLOGICAL: Normal speech, no facial droop. LABS Laboratory Results - last 24 hr 04/18/17 04/18/17 06:30 06:30 WBC 10.8 H RBC 4.05 Hgb 11.2 Hct 34.1 MCV 84.3 MCHC 32.7 RDW 14.8 Plt Count 472 H MPV 7.9 Sodium 143 Potassium 3.9 Chloride 100 Carbon Dioxide 36 H Anion Gap 7 L BUN 20 H Creatinine 1.4 H Random Glucose 111 H Calcium 9.2 Imaging: EKG (04/10/17)- A.fib @ 145 BPM, no ST-T elevations or depressions. Chest x-ray (04/10/17)- cardiomegaly, no acute intrathoracic pathology present PA and Lateral x-ray (04/11/17): Large heart. Sclerotic knob. Some atelectatic changes in the retrocardiac area. Chest X-ray (04/14/17): Cardiomegaly with some congestive changes. Negative for pleural effusions, pneumothorax, pneumonia Chest X-ray (04/16/17): Since 04/14/2017, there is progressive density in the retrocardiac area which has the appearance of fluid with atelectasis and/or infiltrate. There is a weak inspiratory effort with resultant large heart, sclerotic knob and prominent right hilum. The right lung is clear. The right angle is sharp. Incidental note is made of tubing projected over the right upper chest. Impression: Weak inspiration. Left base changes. HOSPITAL COURSE: Patient is an 87 year old female with a PMHx of HTN, HLD, Glaucoma, restless leg syndrome who presented for worsening cough and URI symptoms. Patient was found to have new onset of A.fib with RVR and ABDOUL. Patient was placed in telemetry for further monitoring. Patient was started on NOAC's with Eliquis and rate control medications Metoprolol and Cardizem. Patient continued to have uncontrolled heart rate and rhythm as well as worsening cough. Chest x- ray was done and patient was found to be in CHF, but no pneumonia. Patient started on antibiotics for bronchitis. Patient was also given lasix for CHF. Throughout the hospital stay, patient's URI symptoms and cough improved significantly after completing a week of antibiotics. CHF exacerbation improved with Lasix and now placed on correction aldactone, as per cardiology. Heart rate was controlled on Metoprolol and Cardizem. Patient had 02 pre and post exercise, which showed no change. Patient's kidney function was stable throughout the hospital course but was found to have CKD. group home placement was set up as patient lives in the second floor and family is uncomfortable with having her stay alone. Patient stable for discharge and to be transferred to longterm with family at bedside. Date of Admission:04/10/17 Date of Discharge: 04/18/17 Minutes to complete discharge: 35 Discharge Summary Reason For Visit: RAPID ATRIAL FIBRILLATION; SEPSIS; PNEUMONIA Current Active Problems Atrial fibrillation with RVR (Acute) Diastolic dysfunction (Acute) Leukocytosis (Acute) Sepsis (Acute) Chronic kidney disease (Chronic) HTN (hypertension) (Chronic) Hypercholesterolemia (Chronic) Osteoarthritis (Chronic) Condition: Stable - Instructions Diet, Activity, Other Instructions: -You were admitted for new onset of an irregular heart rhythm called Atrial Fibrillation. You were also found to have bronchitis. -You have been prescribed new medications for Atrial Fibrillation. One of these medications is an anticoagulation called Eliquis. Another two medications to control your heart rate called Metoprolol and Cardizem. Please knot picker cloth your medications from the pharmacy. -You will also start a water pill called Aldactone that has been sent to your pharmacist. Please pick it up from the pharmacy. You will only have enough pills for 2 weeks so you must see your primary care physician within a week. -Your Medication Norvasc has been stopped because your blood pressure has been on the low end and the new medications will control your high blood pressure -You completed antibiotics course here and will not need more -You will need to follow up with your Primacy Care Physician within a week for management of your new medications and your new diagnosis -You will need to follow up with your Front End Loader Operator next week for evaluation -You may resume your regular diet and daily activities -You may use over the counter Robitussin for your cough and cold symptoms -If your symptoms worsen, please return to the ER Referrals: Mami Ku MD [Primary Care Provider] - Marcial Mena MD [Staff Physician] - Disposition: HALF-WAY FACILITY - Home Medications Comprehensive Discharge Medication List: Ambulatory Orders Allopurinol [Zyloprim -] 100 mg PO DAILY 04/10/17 Aspirin [Aspirin EC] 81 mg PO DAILY 04/10/17 Ropinirole HCl [Requip] 1 mg PO DAILY 04/10/17 Simvastatin 20 mg PO DAILY 04/10/17 Timolol 0.5% [Timoptic 0.5%] 1 drop OU BID 04/10/17 Apixaban [Eliquis] 2.5 mg PO BID #28 tablet 04/14/17 Diltiazem Cd [Cardizem Cd -] 120 mg PO DAILY #30 cap.cd.24h 04/14/17 Metoprolol Succinate [Toprol XL -] 75 mg PO BID #42 tab.sr.24h 04/18/17 Spironolactone [Aldactone] 25 mg PO DAILY #14 tablet 04/18/17 This patient is new to me today: No Emergency Visit: Yes ED Registration Date: 04/10/17 Care time: The patient presented to the Emergency Department on the above date and was hospitalized for further evaluation of their emergent condition. Critical Care patient: No - Discharge Referral Referred to [facility] Med [facility].: No
--- NOTE | 2017-04-18 11:25 | PN ---
Teaching Attending Note Name of Resident: Livia Sharma ATTENDING PHYSICIAN STATEMENT I saw and evaluated the patient. I reviewed the resident's note and discussed the case with the resident. I agree with the resident's findings and plan as documented. SUBJECTIVE: OBJECTIVE: Vital Signs Period Temp Pulse Resp BP Sys/Kraus Pulse Ox Last 24 Hr 97.6 F-98.2 F 70-90 16-20 108-123/47-78 95-100 HEART: Irregularly irregular LUNGS: Clear ABDOMEN: Soft, non-tender, non-distended, normal BS EXTREMITIES: Trace edema ASSESSMENT AND PLAN: This is an 87 year old woman with a history of HTN, hyperlipidemia, RLS, glaucoma who presented with cough and URI symptoms. 1. Atrial fibrillation, new-onset with RVR - Rate controlled - Continue Lopressor, Cardizem CD, Eliquis 2. Cough secondary to acute bronchitis - Improving 3. Acute diastolic heart failure - Improved - Continue Aldactone 4. Osteoarthritis 5. Acute kidney injury secondary to dehydration - Improved 6. Stage 3 CKD 7. HTN - Continue Lopressor, Cardizem CD, Aldactone - Diovan discontinued secondary to ABDOUL 8. Hyperlipidemia - Continue Lipitor 9. Restless leg syndrome - Continue Requip 10. Glaucoma -Continue Timoptic 11. Disposition - Ok for discharge to subacute rehab
== END 2017-04-18 13:16 | DRG 291 ==
LOC: FER 11:40 → SUPCPDRO 11:40 → J4S 18:45
PROVIDERS: ADMIT Internal Medicine; ATTEND Internal Medicine
DX: I13.0 Hypertensive heart and chronic kidney disease with heart failure and stage 1 through stage 4 chronic kidney disease, or unspecified chronic kidney disease (principal); I50.31 Acute diastolic (congestive) heart failure; N17.9 Acute kidney failure, unspecified; I48.1 Persistent atrial fibrillation; E86.0 Dehydration; E78.5 Hyperlipidemia, unspecified; H40.9 Unspecified glaucoma; G25.81 Restless legs syndrome; M19.90 Unspecified osteoarthritis, unspecified site; J20.9 Acute bronchitis, unspecified; J06.9 Acute upper respiratory infection, unspecified; N18.2 Chronic kidney disease, stage 2 (mild)
CPT/HCPCS: 36415; 71010-TC; 71020-TC; 80048; 80053; 81003; 81015; 82272; 82436; 82550; 82570; 82803; 83605; 83735; 83880; 84133; 84300; 84443; 84484; 85025; 85027; 85610; 85730; 87040; 87086; 93005; 93010; 93306-TC; 94761; 97116-GP; 97161-GP; 99285-25; J1644

== ENCOUNTER 2017-05-15 11:35 | Emergency (ER) | payer OTHER, BC ==
--- NOTE | 2017-05-15 11:49 | PDOC ---
History of Present Illness - General Chief Complaint: Weakness Stated Complaint: Weakness Time Seen by Provider: 05/15/17 11:48 History Source: Patient - History of Present Illness Initial Comments: 05/15/17 11:49 Patient is an 87-year-old female with past medical history of hypertension hyperlipidemia, glaucoma, restless leg syndrome who presents to the emergency department today after she felt dizzy during breakfast. Patient states that she felt very dizzy and lightheaded while eating and then she vomited approximately 3 times. Patient states there was a "lot of vomit". She denies losing consciousness or hitting her head. She presents to the emergency department from [facility] for further evaluation. She was discharged from this facility at the end of March with a diagnosis of pneumonia and A. fib with RVR. At this time she has no further complaints. Patient denies nausea, vomiting , lightheadedness, dizziness, chest pain, shortness of breath, palpitations, edema, dysuria, frequency and urgency. Past History - Travel Traveled outside of the country in the last 30 days: No Close contact w/someone who was outside of country & ill: No - Past Medical History Allergies/Adverse Reactions: Allergies Allergy/AdvReac Type Severity Reaction Status Date / Time amoxicillin Allergy Verified 04/10/17 11:42 Home Medications: Ambulatory Orders Allopurinol [Zyloprim -] 100 mg PO DAILY 04/10/17 Aspirin [Aspirin EC] 81 mg PO DAILY 04/10/17 Ropinirole HCl [Requip] 1 mg PO DAILY 04/10/17 Simvastatin 20 mg PO DAILY 04/10/17 Timolol 0.5% [Timoptic 0.5%] 1 drop OU BID 04/10/17 Apixaban [Eliquis] 2.5 mg PO BID #28 tablet 04/14/17 Diltiazem Cd [Cardizem Cd -] 120 mg PO DAILY #30 cap.cd.24h 04/14/17 Metoprolol Succinate [Toprol XL -] 75 mg PO BID #42 tab.sr.24h 04/18/17 Spironolactone [Aldactone] 25 mg PO DAILY #14 tablet 04/18/17 HTN: Yes Hypercholesterolemia: Yes - Surgical History Orthopedic Surgery: No - Psycho/Social/Smoking Cessation Hx Anxiety: No Suicidal Ideation: No Smoking History: Never smoked Have you smoked in the past 12 months: No Hx Alcohol Use: Yes (2 CANS BEER DAILY) Drug/Substance Use Hx: No Substance Use Type: None Hx Substance Use Treatment: No Review of Systems - Review of Systems Able to Perform ROS?: No Is the patient limited Libyan proficient: No *Physical Exam - Physical Exam Comments: 05/15/17 13:50 GENERAL: Well developed, well nourished. Awake and alert. No acute distress. HEENT: Normocephalic, atraumatic. PERRLA, EOMI. No conjunctival pallor. Sclera are non- icteric. Moist mucous membranes. Oropharynx is clear. NECK: Supple. Full ROM. No JVD. Carotid pulses 2+ and symmetric, without bruits. No thyromegaly. No lymphadenopathy. CARDIOVASCULAR: Regular rate and rhythm. No murmurs, rubs, or gallops. Distal pulses are 2+ and symmetric. PULMONARY: No evidence of respiratory distress. Lungs clear to auscultation bilaterally. No wheezing, rales or rhonchi. ABDOMINAL: Soft. Non-tender. Non-distended. No rebound or guarding. No organomegaly. Normoactive bowel sounds. MUSCULOSKELETAL Normal range of motion at all joints. No bony deformities or tenderness. No CVA tenderness. EXTREMITIES: No cyanosis. No clubbing. No edema. No calf tenderness. SKIN: Warm and dry. Normal capillary refill. No rashes. No jaundice. NEUROLOGICAL: Alert, awake, appropriate. Cranial nerves 2-12 intact. No deficits to light touch and temperature in face, upper extremities and lower extremities. No motor deficits in the in face, upper extremities and lower extremities. Normoreflexic in the upper and lower extremities. Normal speech. Toes are down- going bilaterally. Gait is normal without ataxia. PSYCHIATRIC: Cooperative. Good eye contact. Appropriate mood and affect. ED Treatment Course - LABORATORY CBC & Chemistry Diagram: 05/15/17 12:50 05/15/17 12:50 Medical Decision Making - Medical Decision Making 05/15/17 11:54 Patient is an 87-year-old female with past medical history of hypertension hyperlipidemia, glaucoma, restless leg syndrome who presents to the emergency department today after she felt dizzy and vomited this morning. Patient reports that she feels fine at this time, and she has no complaints. Given her symptoms will check basic labs for infection, cardiac profile, EKG and urine. We will obtain follow-up chest x-ray to evaluate her old pneumonia. Will reevaluate. 05/15/17 12:14 Radiology: Chest x-ray shows no acute pulmonary disease. 05/15/17 13:55 Vital signs are notable for her pulse rate of 55. Pt. is on metoprolol and diltiazem. Urine shows no infection, white blood cell count is normal. Troponin is within normal limits. BUN is slightly elevated at 35, creatinine is 1.6. Baseline is approximately 1.3-1.4. Most likely dehydration. We'll order fluids at this time and reevaluate. 05/15/17 14:04 EKG: Rate 50 BPM. QT interval 456. Sinus Bradycardia with no acute ST-T wave changes. Normal axis. 05/15/17 16:[address] Mena, cardiology for bradycardia. Since pt back in sinus, will d/ c Metoprolol, and aspirin. Hold aldactone until her kidney function stabilizes. continue cardizem with the same hold precautions. Pt. PO trialed and states she feels good. [facility]. *DC/Admit/Observation/Transfer Diagnosis at time of Disposition: Dehydration, Sinus bradycardia - Discharge Dispostion Disposition: ASSISTED FACILITY Condition at time of disposition: Improved Admit: No - Referrals Referrals: Mami Ku MD [Primary Care Provider] - - Patient Instructions Printed Discharge Instructions: DI for Dehydration -- Adult Additional Instructions: You were dehydrated. You were given fluids in the ED today. You were also evaluated by our hand sewer for your low pulse rate. Your medications were changed today. 1. Discontinue Metoprolol. 2. Discontinue Aspirin 3. Continue current dose of Cardizem with the same hold precautions. 4. Hold Aldactone until Creatinine is back to base line (1.2). Please draw a BMP on Monday to re-evaluate Once Creatinine is back at baseline she may resume the aldactone 5. She may resume her current rehab therapy 6. You were seen by Dr. Marcial Mena MD., Cardiology Return to the ED if you feel weak, have worsening nausea, vomiting, fevers, chills, lethargy or any changes in your symptoms.
[2017-05-15 12:06] VITALS: TEMP 98; BMI 34.4
[2017-05-15 13:01] LABS: BASOPHIL 1.1 % (0-2.0); EOSINOPHIL 2.5 % (0-4.5); MCHC 32.9 g/dl (32.0-36.0); MEAN CELL VOLUME 82.2 fl (80-96); MEAN PLT VOLUME 7.7 fl (7.5-11.1); NEUTROPHILS 62.6 % (42.8-82.8); PLATELET COUNT 429 K/MM3 (134-434); RDW 15.6 % (11.6-15.6); WHITE BLOOD COUNT 8.9 K/mm3 (4.0-10.0)
[2017-05-15 13:26] LABS: ALBUMIN 3.2 g/dl (3.4-5.0); ALK PHOS 90 U/L (45-117); ANION GAP 5 (8-16); BILIRUBIN,TOTAL 0.4 mg/dL (0.2-1.0); CALCIUM 9.4 mg/dL (8.5-10.1); CO2 30 mmol/L (21-32); CREATININE 1.6 mg/dL (0.55-1.02); GLUCOSE,RANDOM 111 mg/dL (74-106); SGOT/AST 18 U/L (15-37); SGPT/ALT 23 U/L (12-78); TOT PROT 7.5 g/dl (6.4-8.2)
[2017-05-15 13:31] LABS: INR 1.46 (0.82-1.09); PROTHROMBIN TIME (PATIENT) 16.2 SEC (9.98-11.88)
[2017-05-15 13:35] LABS: URINE APPEARANCE CLEAR; URINE BILIRUBIN NEGATIVE (NEGATIVE); URINE BLOOD NEGATIVE (NEGATIVE); URINE COLOR STRAW; URINE GLUCOSE (UA) NEGATIVE (NEGATIVE); URINE KETONE NEGATIVE (NEGATIVE); URINE LEUK ESTERASE NEGATIVE (NEGATIVE); URINE NITRITE NEGATIVE (NEGATIVE); URINE UROBILINOGEN NEGATIVE mg/dL (0.2-1.0)
[2017-05-15] MEDS ORDERED: SODIUM CHLORIDE 1,000 ML IV STA (13:41)
[2017-05-15 13:49] LABS: URINE PROTEIN 1+ (NEGATIVE)
[2017-05-15 15:57] LABS: TROPONIN I < 0.02 ng/ml (0.00-0.05)
--- NOTE | 2017-05-15 16:01 | CON.CARD ---
Consult Consult Specialty:: Cardiology Referred by:: ANGIE Martínez Reason for Consultation:: Paroxysmal afib - History of Present Illness Chief Complaint: Weakness History of Present Illness: Patient is an 87 year old female with history of hypertension, hypercholesterolemia, paroxysmal atrial fibrillation with rapid ventricular response, glaucoma and restless leg syndrome presented for post-prandial light- headedness, dizziness, nausea and emesis. She denies true syncope, palpitations , chest pain, dyspnea, orthopnea, PND or LE edema. Recent admission for PNA and rapid afib in March, reports weakness and fatigue. - History Source History Provided By: Patient Limitations to Obtaining History: No Limitations - Past Medical History Cardio/Vascular: Yes: AFIB (New onset), HTN, Hyperlipdemia Musculoskeletal: Yes: Osteoarthritis Additional Medical History: Glaucoma - Past Surgical History Past Surgical History: Yes: Hysterectomy - Alcohol/Substance Use Hx Alcohol Use: Yes (2 CANS BEER DAILY) History of Substance Use: reports: None - Smoking History Smoking history: Never smoked Have you smoked in the past 12 months: No Home Medications - Allergies Allergies/Adverse Reactions: Allergies Allergy/AdvReac Type Severity Reaction Status Date / Time amoxicillin Allergy Verified 04/10/17 11:42 - Home Medications Home Medications: Ambulatory Orders Allopurinol [Zyloprim -] 100 mg PO DAILY 04/10/17 Aspirin [Aspirin EC] 81 mg PO DAILY 04/10/17 Ropinirole HCl [Requip] 1 mg PO DAILY 04/10/17 Simvastatin 20 mg PO DAILY 04/10/17 Timolol 0.5% [Timoptic 0.5%] 1 drop OU BID 04/10/17 Apixaban [Eliquis] 2.5 mg PO BID #28 tablet 04/14/17 Diltiazem Cd [Cardizem Cd -] 120 mg PO DAILY #30 cap.cd.24h 04/14/17 Metoprolol Succinate [Toprol XL -] 75 mg PO BID #42 tab.sr.24h 04/18/17 Spironolactone [Aldactone] 25 mg PO DAILY #14 tablet 04/18/17 Review of Systems - Review of Systems Constitutional: reports: Weakness Gastrointestinal: reports: Nausea, Vomiting Neurological: reports: Dizziness, Weakness Vital Signs: Vital Signs Temperature 98.0 F 05/15/17 11:57 Pulse Rate 55 L 05/15/17 11:57 Respiratory Rate 20 05/15/17 11:57 Blood Pressure 153/68 05/15/17 11:57 O2 Sat by Pulse Oximetry (%) 96 05/15/17 11:57 Constitutional: Yes: No Distress, Calm Neck: Yes: Supple Respiratory: Yes: Regular, CTA Bilaterally Gastrointestinal: Yes: Normal Bowel Sounds, Soft Cardiovascular: Yes: Bradycardia JVD: No Carotid Bruit: No Heart Sounds: Yes: S1, S2 Murmur: Yes: Systolic Murmur, Grade 1 Edema: No - Other Data Labs, Other Data: CBC, BMP 05/15/17 12:50 05/15/17 12:50 INR, PTT INR 1.46 (0.82-1.09) H 05/15/17 12:50 SB @ 50 PRWP Imaging - Results Chest X-ray: Report Reviewed (NAD) Problem List - Problems (1) Diastolic dysfunction Code(s): I51.9 - HEART DISEASE, UNSPECIFIED (2) HTN (hypertension) Code(s): I10 - ESSENTIAL (PRIMARY) HYPERTENSION Qualifiers: Hypertension type: essential hypertension Qualified Code(s): I10 - Essential (primary) hypertension (3) Hypercholesterolemia Code(s): E78.00 - PURE HYPERCHOLESTEROLEMIA, UNSPECIFIED (4) [id number] kidney injury Code(s): N17.9 - ACUTE KIDNEY FAILURE, UNSPECIFIED N18.9 - CHRONIC KIDNEY DISEASE, UNSPECIFIED Qualifiers: Acute renal failure type: unspecified (5) Paroxysmal atrial fibrillation Code(s): I48.0 - PAROXYSMAL ATRIAL FIBRILLATION (6) Sinus bradycardia Code(s): R00.1 - BRADYCARDIA, UNSPECIFIED Assessment/Plan 1. Weakness and fatigue referable to paroxysmal atrial fibrillation -> sinus bradycardia [id number] score of 4-5 on NOAC's 2. 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 Hypertension 4. Hypercholesterolemia 5. Acute on CKD (pre-renal) and hyponatremia referable to diuretics 6. Nausea and emesis since resolved PLAN: 1. Continue Eliquis 2.5 mg twice daily, d/c ASA 81 qd 2. D/C Toprol XL 3. Continue Cardizem CD 120 qd as hemodynamics tolerate 4. Continue Zocor 20 qhs 5. Hold Aldactone 25 qd pending stabilization of renal function 6. Thank you for consultative opportunity
--- NOTE | 2017-05-15 16:58 | EKG ---
Test Reason : Blood Pressure : / mmHG Vent. Rate : 050 BPM Atrial Rate : 050 BPM P-R Int : 194 ms QRS Dur : 092 ms QT Int : 456 ms P-R-T Axes : 083 -21 063 degrees QTc Int : 415 ms SINUS BRADYCARDIA POSSIBLE ANTERIOR INFARCT (CITED ON OR BEFORE 15-APR-2017) ABNORMAL ECG WHEN COMPARED WITH ECG OF 15-APR-2017 12:55, SINUS RHYTHM HAS REPLACED ATRIAL FIBRILLATION VENT. RATE HAS DECREASED BY 39 BPM Confirmed by ARMANDO KNAPP MD ([id number]) on 05/15/2017 4:58:26 PM Referred By: Confirmed By:ARMANDO KNAPP MD
[2017-05-15 17:43] VITALS: BP 156/63; PULSE 62
[2017-05-15] MEDS ORDERED: ATORVASTATIN CA 20 MG TABLET (FP) PO SCH (22:00)
[2017-05-15] MEDS ORDERED: APIXABAN 2.5 MG TABLET PO SCH (22:00)
== END 2017-05-15 17:43 ==
LOC: JER 11:35
PROC: 3E0337Z Introduction of Electrolytic and Water Balance Substance into Peripheral Vein, Percutaneous Approach (ICD-10-PCS; principal; 2017-05-15)
DX: E86.0 Dehydration (principal); R00.1 Bradycardia, unspecified; I10 Essential (primary) hypertension; E78.00 Pure hypercholesterolemia, unspecified; E78.5 Hyperlipidemia, unspecified; H40.9 Unspecified glaucoma; G25.81 Restless legs syndrome
CPT/HCPCS: 36415; 71010-TC; 80053; 81003; 81015; 82550; 84484; 85025; 85610; 93005; 93010; 96360; 96361; 99284-25

== ENCOUNTER 2017-06-14 21:52 | Emergency (ER) | payer OTHER, BC ==
[2017-06-14 22:05] VITALS: BP 166/64; PULSE 58; TEMP 97.7; BMI 25.4
--- NOTE | 2017-06-14 22:07 | PDOC ---
History of Present Illness - General Chief Complaint: Shortness of Breath Stated Complaint: YRIS NAVA Time Seen by Provider: 06/14/17 21:57 - History of Present Illness Initial Comments: This 87-year-old woman with a history of hypertension/hyperlipidemia/atrial fibrillation/renal insufficiency is brought in via ambulance accompanied by her son and daughter with history of episode of shortness of breath prior to presentation. Of note, patient presented with similar symptoms last night to [place] [facility]. At that time, workup was essentially normal and patient was discharged. During the day today patient was without complaints, staying in an air-conditioned room in her house with her family. Tonight, at approximately 9 PM, and she was getting ready to retire for the night, began to become short of breath. By her own admission, she was anxious about having another episode like last night. She denies chest pain,palpitations abdominal pain, nausea, cough, fever or chills. Medications have been administered as prescribed. Recent history includes admission 04/10/17 through 04/18/17 at [facility] for atrial fibrillation with RVR/CHF/pneumonia. She was transferred to [facility] from which she was discharged on 06/06. Past History - Past Medical History Allergies/Adverse Reactions: Allergies Allergy/AdvReac Type Severity Reaction Status Date / Time amoxicillin Allergy Verified 04/10/17 11:42 Home Medications: Ambulatory Orders Allopurinol [Zyloprim -] 100 mg PO DAILY 04/10/17 Aspirin [Aspirin EC] 81 mg PO DAILY 04/10/17 Ropinirole HCl [Requip] 1 mg PO DAILY 04/10/17 Simvastatin 20 mg PO DAILY 04/10/17 Timolol 0.5% [Timoptic 0.5%] 1 drop OU BID 04/10/17 Apixaban [Eliquis] 2.5 mg PO BID #28 tablet 04/14/17 Diltiazem Cd [Cardizem Cd -] 120 mg PO DAILY #30 cap.cd.24h 04/14/17 Metoprolol Succinate [Toprol XL -] 75 mg PO BID #42 tab.sr.24h 04/18/17 Spironolactone [Aldactone] 25 mg PO DAILY #14 tablet 04/18/17 HTN: Yes Hypercholesterolemia: Yes Other medical history: AFIB,RLS,GLAUCOMA, GOUT, HL - Surgical History Orthopedic Surgery: No - Psycho/Social/Smoking Cessation Hx Anxiety: No Suicidal Ideation: No Smoking History: Unknown if ever smoked Have you smoked in the past 12 months: No Number of Cigarettes Smoked Daily: 0 Information on smoking cessation initiated: No Hx Alcohol Use: No Drug/Substance Use Hx: No Substance Use Type: None Hx Substance Use Treatment: No Review of Systems - Review of Systems Able to Perform ROS?: Yes Comments:: 12 point review of systems is negative except for what is noted in the history of present illness *Physical Exam - Vital Signs Last Vital Signs Temp Pulse Resp BP Pulse Ox 97.7 F 58 L 14 166/64 99 06/14/17 21:55 06/14/17 21:55 06/14/17 21:55 06/14/17 21:55 06/14/17 21:55 - Physical Exam Comments: GENERAL: Elderly female, alert and oriented 3, in no acute distress HEAD: Normal with no signs of trauma. EYES: PERRLA, EOMI, sclera anicteric, conjunctiva clear. ENT: Ears normal, nares patent, oropharynx clear without exudates. Moist mucous membranes. NECK: Normal range of motion, supple without lymphadenopathy, JVD, or masses. LUNGS: Breath sounds equal, clear to auscultation bilaterally. No wheezes, and no crackles. HEART:Regular rate and rhythm, normal S1 and S2 without murmur, rub or gallop. ABDOMEN:.normal bowel sounds No guarding,tenderness or rebound.No masses No distention. EXTREMITIES: Normal range of motion, no edema. No clubbing or cyanosis. No erythema, or tenderness. NEUROLOGICAL: Cranial nerves II through XII grossly intact. Normal speech. No focal neurologic deficits MUSCULOSKELETAL: Back non-tender to palpation, no CVA tenderness SKIN: Warm, Dry, normal turgor, no rashes or lesions noted. 12-lead electrocardiogram shows normal sinus rhythm with occasional PACs, 63 bpm. There is mild left axis deviation. Intervals, wave forms are essentially normal. There is no significant change from previous 12-lead electrocardiogram dated 05/15/17 Portable chest x-ray was performed: Preliminary interpretation by me shows no evidence of gross infiltrate, pneumothorax effusion or CHF. Left retrocardiac area cannot be fully evaluated. ED Treatment Course - LABORATORY CBC & Chemistry Diagram: 06/14/17 22:30 06/14/17 22:30 Progress Note - Progress Note Progress Note: This 87-year-old woman with hospitalization a few months ago for atrial fibrillation with rapid ventricular response along with pneumonia and CHF, and very recently [facility], presents for second night in a row with episode of shortness of breath at home. Workup last night was apparently normal and patient was discharged; tonight, she states that she felt anxious at approximately 9 PM became short of breath after this. On presentation, dyspnea has resolved and patient has no associated chest pain, fever/cough. Although vital signs are quite good with heart rate of 58/min, BP 166/64, nonlabored respiration 14/minute, temperature 97.7 degrees Fahrenheit, and pulse oximetry at 99% on room air with no significant finding on physical exam, 12-lead electrocardiogram was performed as well as a portable chest x-ray to evaluate for acute cardiopulmonary pathology As noted above, both 12-lead electrocardiogram and portable chest x-ray shows no evidence of acute process. CBC/chemistry profile and cardiac enzymes were evaluated since patient perceived shortness of breath (now resolved). Laboratory values from last night's workup not available. Comparison values from previous ER evaluation 05/15/17 used. Current white blood cell count is mildly elevated at 12,000 with slight neutrophil predominance. Remainder of the CBC is essentially unchanged. Chemistry reveals mild to moderate renal insufficiency with BUN 41/creatinine 1.4. Electrolytes/liver function tests show no gross abnormality. Cardiac enzymes are not elevated new Urinalysis (voided, clean-catch) microscopic exam 23 RBC/24 WBC/12 epi/few bacteria Workup negative for evidence of acute cardiac or pulmonary process. Patient continued to be comfortable without further dyspnea (she walked to the bathroom using walker without significant dyspnea or discomfort). She stated that she is sleepy and wished to go home. Patient discharged discharged in the company of her son and daughter. She will continue medications as prescribed with moderate water intake (previously instructed to pain for 48 ounces of water daily). She should continue to use air-conditioner especially in hot humid weather. She has an appointment with Dr. Ku for June 21. If she has persistent shortness of breath, chest pain, cough or fever/chills, she should return to the emergency room *DC/Admit/Observation/Transfer Diagnosis at time of Disposition: History of dyspnea - Discharge Dispostion Disposition: HOME Condition at time of disposition: Stable - Referrals Referrals: Mami Ku MD [Primary Care Provider] - - Patient Instructions Printed Discharge Instructions: How to Manage Shortness of Breath Additional Instructions: Continue medications as prescribed Make sure you drink moderate amounts of water as discussed Continue air-conditioning during hot/humid weather Return to ER if you have severe, persistent shortness of breath or develop chest pain/cough/fever Follow-up with next week as scheduled
[2017-06-14 22:48] LABS: BASOPHIL 0.6 % (0-2.0); EOSINOPHIL 1.7 % (0-4.5); MCH 27.2 pg (25.7-33.7); MCHC 33.2 g/dl (32.0-36.0); MEAN PLT VOLUME 7.9 fl (7.5-11.1); NEUTROPHILS 65.4 % (42.8-82.8); PLATELET COUNT 365 K/MM3 (134-434); RDW 17.3 % (11.6-15.6)
[2017-06-14 22:59] LABS: INR 1.05 (0.82-1.09); PROTHROMBIN TIME (PATIENT) 11.7 SEC (10.2-13.0)
[2017-06-14 23:05] LABS: ALBUMIN 3.7 g/dl (3.5-5.0); ALK PHOS 70 U/L (32-92); CALCIUM 9.2 mg/dl (8.4-10.2); CPK 26 IU/L (26-192); CREATININE 1.4 mg/dl (0.6-1.3); GLUCOSE,RANDOM 101 mg/dl (74-106); SGOT/AST 19 U/L (10-42); SGPT/ALT 33 U/L (10-40); TOT PROT 6.7 g/dl (6.4-8.3)
[2017-06-14 23:07] LABS: BILIRUBIN,TOTAL < 0.3 mg/dl (0.2-1.0)
[2017-06-14 23:08] LABS: PH,URINE 7.5 (4.5-8); URINE APPEARANCE Clear; URINE BILIRUBIN Negative (NEGATIVE); URINE BLOOD 2+ (NEGATIVE); URINE COLOR YELLOW; URINE GLUCOSE (UA) Negative (NEGATIVE); URINE KETONE Negative (NEGATIVE); URINE LEUK ESTERASE Negative (NEGATIVE); URINE NITRITE Negative (NEGATIVE); URINE PROTEIN Negative (NEGATIVE); URINE UROBILINOGEN 0.2 (0.2-1.0)
[2017-06-14 23:16] LABS: URINE BACTERIA FEW /hpf (NEGATIVE)
[2017-06-14 23:19] LABS: TROPONIN I (DFP) < 0.03 ng/ml (0.03-0.50)
[2017-06-14 23:31] LABS: ANION GAP 10 (8-16); CO2 23 mmol/L (22-28)
--- NOTE | 2017-06-15 15:31 | EKG ---
Test Reason : Blood Pressure : / mmHG Vent. Rate : 063 BPM Atrial Rate : 063 BPM P-R Int : 188 ms QRS Dur : 112 ms QT Int : 428 ms P-R-T Axes : 069 -47 094 degrees QTc Int : 437 ms SINUS RHYTHM WITH PREMATURE SUPRAVENTRICULAR COMPLEXES LEFT AXIS DEVIATION POOR R WAVE PROGRESSION LEFT VENTRICULAR HYPERTROPHY WITH REPOLARIZATION ABNORMALITY ABNORMAL ECG WHEN COMPARED WITH ECG OF 15-MAY-2017 12:49, PREMATURE SUPRAVENTRICULAR COMPLEXES ARE NOW PRESENT Criteria for possible LVH is now present Confirmed by GUIDO MOREIRA MD ([id number]) on 06/15/2017 3:30:38 PM Referred By: MD BENITES Confirmed By:GUIDO MOREIRA MD
== END 2017-06-15 | disposition home or self-care (01) ==
LOC: FER 21:52
DX: R06.00 Dyspnea, unspecified (principal); I48.91 Unspecified atrial fibrillation; I50.9 Heart failure, unspecified; I10 Essential (primary) hypertension; E78.00 Pure hypercholesterolemia, unspecified
CPT/HCPCS: 36415; 71010-TC; 80053; 81003; 81015; 84484; 85025; 85610; 93005; 99284-25

== ENCOUNTER 2017-09-26 08:55 | Day surgery (SDC) | payer OTHER, BC ==
[2017-09-25 13:01] VITALS: BMI 29.8
[2017-09-26] MEDS ORDERED: PROPOFOL 20 ML ONE ×2 (09:45)
[2017-09-26 10:41] VITALS: TEMP 97.5
[2017-09-26 11:37] VITALS: BP 125/61; PULSE 60
--- NOTE | 2017-09-27 15:44 | PATH ---
Surgical Pathology Report Patient Name: EZEQUIEL MENDEZ [facility]. Rec. #: [id number] /Age/Gender: 1930 (Age: 87) / F Account: [id number] Location: [facility]-ENDOSCOPY Taken: 09/26/2017 Received: 09/26/2017 Reported: 09/27/2017 Physicians: Mak Naqvi M.D. Specimen(s) Received BX ANTRUM Clinical History Preoperative diagnosis: Anemia Postoperative diagnosis: Normal EGD, diverticulosis Final Diagnosis ANTRUM, BIOPSY: GASTRIC MUCOSA WITH NO SIGNIFICANT PATHOLOGIC FINDINGS. IMMUNOSTAIN IS NEGATIVE FOR H PYLORI ORGANISMS. Electronically Signed Sherrie Rabago M.D. Gross Description Received in formalin, labeled "biopsy antrum" are 2 dale, irregular portions of soft tissue averaging 0.4 cm. in greatest dimension. The specimens are submitted in toto in one cassette. 09/26/201709/26/2017
== END 2017-09-26 11:40 | disposition home or self-care (01) ==
LOC: JASU-ENDO 08:55
PROVIDERS: ATTEND Internal Medicine Gastroenterology
PROC: 0DB68ZX Excision of Stomach, Via Natural or Artificial Opening Endoscopic, Diagnostic (ICD-10-PCS; 2017-09-26)
PROC: 0DJD8ZZ Inspection of Lower Intestinal Tract, Via Natural or Artificial Opening Endoscopic (ICD-10-PCS; principal; 2017-09-26 10:45)
DX: D64.9 Anemia, unspecified (principal); K57.30 Diverticulosis of large intestine without perforation or abscess without bleeding; I48.91 Unspecified atrial fibrillation; Z79.01 Long term (current) use of anticoagulants
CPT/HCPCS: 88305-TC; 88342-TC

== ENCOUNTER 2018-03-05 09:49 | Day surgery (SDC) | payer OTHER, BC ==
[~2018-03-05 09:49] MED LIST: ACETAMINOPHEN 325 MG TABLET (FP) PO ONE; DIPHENHYDRAMINE 50 MG in SODIUM CHLORIDE 100 ML IVPB ONE; FERRIC CARBOXYMALTOSE 750 MG in SODIUM CHLORIDE 250 ML IVPB ONE
[2018-03-05] MEDS ORDERED: ACETAMINOPHEN 325 MG TABLET (FP) PO ONE (10:00)
[2018-03-05] MEDS ORDERED: DIPHENHYDRAMINE 50 MG in SODIUM CHLORIDE 100 ML IVPB ONE (10:00)
[2018-03-05] MEDS ORDERED: FERRIC CARBOXYMALTOSE 750 MG in SODIUM CHLORIDE 250 ML IVPB ONE (10:30)
[2018-03-05 15:21] VITALS: BP 126/50; PULSE 51; TEMP 97.4
== END 2018-03-05 14:24 | disposition home or self-care (01) ==
LOC: JONCCHEMO 09:49 → J7W 12:32 → JONCCHEMO 14:24
PROVIDERS: ATTEND Internal Medicine Hematology & Oncology
PROC: 3E033GC Introduction of Other Therapeutic Substance into Peripheral Vein, Percutaneous Approach (ICD-10-PCS; principal; 2018-03-05)
DX: D50.9 Iron deficiency anemia, unspecified (principal)
CPT/HCPCS: 96365; J1439

== ENCOUNTER 2018-03-20 11:04 | Observation (INO) | payer OTHER, BC ==
--- NOTE | 2018-03-20 11:07 | PDOC ---
History of Present Illness - General Chief Complaint: Tachycardia Stated Complaint: TACHYCARDIA Time Seen by Provider: 03/20/18 11:06 - History of Present Illness Initial Comments: 03/20/18 12:05 The patient is an 87 year old female with a history of HTN, HLD, CHF, Afib, Anemia who presents for evaluation of tachycardia. The patient is accompanied by family who assist in providing the history. They note that the patient's heart rate has gradually been elevating over the past week. The patient was evaluated for a routine follow up by her primary care provider 5 days ago and was noted to be normal at that time. The patient's family noted that the patient's heart rate was elevated to 125 today prompting her presentation to the ED for evaluation. The patient denies any symptoms currently and notes that she has been compliant with all her medications. She otherwise denies fevers, chills, SOB, chest pain, cough, nausea, vomiting, abdominal pain, or changes with urination or bowel movements. Past History - Past Medical History Allergies/Adverse Reactions: Allergies Allergy/AdvReac Type Severity Reaction Status Date / Time amoxicillin Allergy Verified 03/20/18 11:05 Home Medications: Ambulatory Orders Ropinirole HCl [Requip] 1 mg PO DAILY 04/10/17 Simvastatin 20 mg PO DAILY 04/10/17 Timolol 0.5% [Timoptic 0.5%] 1 drop OU BID 04/10/17 Apixaban [Eliquis] 2.5 mg PO BID #28 tablet 04/14/17 Allopurinol [Zyloprim -] 100 mg PO DAILY 09/25/17 Acetaminophen [Tylenol Arthritis] 650 mg PO DAILY 03/20/18 Diltiazem HCl [Diltiazem 24Hr ER] 60 mg PO BID 03/20/18 Docusate Sodium 100 mg PO DAILY 03/20/18 Hydralazine HCl 10 mg PO BID 03/20/18 Tramadol HCl 25 mg PO PRN PRN 03/20/18 Anemia: Yes Asthma: No Cancer: No Cardiac Disorders: Yes (ATRIAL FIBRILLATION) CVA: No COPD: No CHF: Yes Dementia: No Diabetes: No GI Disorders: Yes (DYSPHAGIA) Disorders: No HTN: Yes Hypercholesterolemia: Yes Liver Disease: No Seizures: No Thyroid Disease: No - Surgical History Abdominal Surgery: No Appendectomy: No Cardiac Surgery: No Cholecystectomy: No Lung Surgery: No Orthopedic Surgery: No - Suicide/Smoking/Psychosocial Hx Smoking History: Never smoked Have you smoked in the past 12 months: No Number of Cigarettes Smoked Daily: 0 Hx Alcohol Use: No Drug/Substance Use Hx: No Substance Use Type: None Hx Substance Use Treatment: No Review of Systems - Review of Systems Comments:: 03/20/18 12:13 Constitutional: No fevers, chills, fatigue, malaise HEENT: No Rhinorrhea, nasal congestion, visual changes Cardiovascular: No chest pain, syncope, palpitations, lightheadedness Respiratory: No Cough, SOB, Hemoptysis, Gastrointestinal: No Abdominal pain, Nausea, Vomiting, Constipation, Diarrhea, Melena Genitourinary: No Dysuria, Frequency, Urgency, Hesitancy, Hematuria, Flank pain Musculoskeletal: No Myalgia, arthralgia Skin: No rashes, itching, bruising, pallor Neurologic: No Headache, Dizziness, Numbness, Weakness, or Tingling Psychiatric: No Hallucinations. No SI or HI *Physical Exam - Physical Exam Comments: 03/20/18 12:13 General Appearance: Nourished. No Apparent Distress HEENT: EOMI, DIANE. No Pharyngeal Erythema, Tonsillar Exudate, Tonsillar Erythema Neck: No Cervical Lymphadenopathy Respiratory/Chest: Normal Breath Sounds. Mild bibasilar rales noted on exam. No Rhonchi, Wheezing Cardiovascular: Regular Rhythm, Regular Rate. No Murmur, Gallops, Rubs Gastrointestinal/Abdominal: Normal Bowel Sounds, Soft. No Guarding, Rebound, Tenderness Musculoskeletal: No CVA Tenderness Extremity: 1+ pitting edema in the lower extremities bilaterally. Normal Capillary Refill Integumentary: Normal Color, Dry, Warm Neurologic: Fully Oriented, Alert, Normal Mood/Affect, Normal Response, Heart Score/ECG Review #1 ECG reviewed & interpreted by me at: 12:14 (Sinus Tachycardia to 126) General ECG Interpretation: Sinus Rhythm, Normal Intervals, No acute ischemic changes ED Treatment Course - LABORATORY CBC & Chemistry Diagram: 03/20/18 11:52 03/20/18 11:52 Medical Decision Making - Medical Decision Making 03/20/18 12:20 The patient is an 87 year old female with a history of HTN, HLD, CHF, Afib, Anemia who presents for evaluation of tachycardia. Differential includes but is not limited to: Dehydration, Arrhythmia, ACS, Infectious, Metabolic Derangement. Given the patient's history and physical exam, we will obtain a cbc, cmp, cardiac enzymes, bnp, ekg, chest plain film to evaluate further. We will treat in the meantime with iv fluids and continue to monitor and reassess. 03/20/18 13:17 cbc, cmp, troponin are unremarkable. Chest plain film is unremarkable as read by our radiologist. The patient's HR improved with iv fluids to 100, however, the patient's rhythm now appears to be afib. We treated with iv diltiazem 5mg and the patient's rate improved to 80. The patient's symptoms are likely due to afib with rvr. She will require admission for further monitoring. We discussed the case with the hospitalist team who accepted the patient for admission. *DC/Admit/Observation/Transfer Diagnosis at time of Disposition: Atrial fibrillation with RVR - Discharge Dispostion Condition at time of disposition: Stable Decision to Admit order: Yes - Referrals - Patient Instructions - Post Discharge Activity
[2018-03-20 11:26] VITALS: BMI 25.6
[2018-03-20] MEDS ORDERED: dilTIAZem HCL 50 MG/10 ML - 10 ML VIAL IVPUSH ONE ×2 (11:36→12:38)
[2018-03-20] MEDS ORDERED: SODIUM CHLORIDE 250 ML IV STA (11:36)
[2018-03-20] MEDS ORDERED: SODIUM CHLORIDE 500 ML IV STA (11:44)
--- NOTE | 2018-03-20 11:47 | PDOC ---
Attending Attestation - Resident Resident Name: GenieJuan - ED Attending Attestation I have performed the following: I have examined & evaluated the patient, The case was reviewed & discussed with the resident, I agree w/resident's findings & plan - HPI HPI: 03/20/18 11:43 87y/o F h/o afib on diltiazem/eliquis p/w asymptomatic tachycardia at home measured by her son. Was recently evaluate in Dr. Martino's office 4d ago for routine appt and was well, over last 2 days son has noted increasing heart rate so they present for evaluation. no cp/sob/orthopnea, no volume losses, compliant with meds, no infectious sxs. - Physicial Exam PE: 03/20/18 11:44 tachy to 125, BP wnl, O2 wnl alert seated in stretcher in NAD, speaking clearly, no tachypnea no jvd, lungs are clear, heart is regular tachycardia abd soft/nontender puffy ankles but no pitting edema neuro nonfocal - Critical Care Time Total Critical Care Time: 30 Critical Care Statement: The care of this patient involved high complexity decision making to prevent further life threatening deterioration of the patient 's condition and/or to evaluate & treat vital organ system(s) failure or risk of failure. - Medical Decision Making 03/20/18 11:45 87y/o F with h/o afib p/w asymptomatic tachycardia, appears to be in sinus rhythm on EKG. HD stable, no respiratory distress, no evidence of infectious etiology. ? dehydration, ? primary cardiac SVT, PE seems low on ddx given she is anti-coagulated at baseline. labs, ua ekg, cxr o2, IVF reassess 03/20/18 12:47 labs at baseline, trop negative. cxr clear. persistent tachycardia, now afib on monitor. ? afib/SVT previously. will proceed with diltiazem for rate control, repeat EKG, and admit to tele for afib and RVR> 03/20/18 13:14 rate well controlled after diltiazem IV, took long acting oral dose earlier this AM and HR now in 60s. Discharge Disposition - Diagnosis Atrial fibrillation with RVR - Discharge Dispostion Last Admission D/C Date: 04/18/17 - Referrals - Patient Instructions - Post Discharge Activity Heart Score/ECG Review #1 ECG reviewed & interpreted by me at: 11:23 03/20/18 11:47 sinus tachycardia at 125. normal QRS, QTC 470, TWI I/AVL, no ST changes #2 ECG reviewed & interpreted by me at: 12:58 03/20/18 13:14 a flutter/fib at 69. TWI I/AVL, no st changes
[2018-03-20 12:09] LABS: BASO % 1.8 % (0-2.0); EOS % 1.3 % (0-4.5); HEMATOCRIT 30.8 % (32.4-45.2); HEMOGLOBIN 10.1 GM/dl (10.7-15.3); LYMPH % 13.3 % (8-40); MCH 26.6 pg (25.7-33.7); MCHC 32.7 g/dl (32.0-36.0); MEAN CELL VOLUME 81.2 fl (80-96); MEAN PLT VOLUME 8.1 fl (7.5-11.1); MONO % 15.5 % (3.8-10.2); NEUT % 68.1 % (42.8-82.8); PLATELET COUNT 504 K/MM3 (134-434); RBC 3.79 M/mm3 (3.60-5.2); RDW 21.1 % (11.6-15.6); WHITE BLOOD COUNT 9.2 K/mm3 (4.0-10.8)
[2018-03-20 12:16] LABS: ADD RBC MORPHOLOGY YES; ALK PHOS 103 U/L (32-92); ANION GAP 10 (8-16); BLOOD UREA NITROGEN 20 mg/dl (7-18); CALCIUM 8.2 mg/dl (8.4-10.2); CHLORIDE 99 mmol/L (98-107); CO2 25 mmol/L (22-28); CREATININE 1.2 mg/dl (0.6-1.3); GLUCOSE,RANDOM 118 mg/dl (74-106); INR 1.49 (0.82-1.09); MAGNESIUM 1.9 mg/dL (1.8-2.4); POTASSIUM 4.3 mmol/L (3.5-5.1); PROTHROMBIN TIME (PATIENT) 16.6 SEC (10.2-13.0); SGOT/AST 18 U/L (10-42); SGPT/ALT 16 U/L (10-40); SODIUM 134 mmol/L (136-145); TOT PROT 6.1 g/dl (6.4-8.3)
[2018-03-20 12:19] LABS: BILIRUBIN,TOTAL < 0.5 mg/dl (0.2-1.0)
[2018-03-20] MEDS ORDERED: dilTIAZem HCL 50 MG/10 ML - 10 ML VIAL ONE (12:44)
[2018-03-20] MEDS ORDERED: dilTIAZem HCL 30 MG TABLET (FP) PO ONE ×2 (12:53)
[2018-03-20] MEDS ORDERED: traMADol HCL 50 MG TABLET PO PRN ×2 (13:13→19:53)
[2018-03-20] MEDS ORDERED: ACETAMINOPHEN 650 MG PO PRN ×2 (13:13→19:52)
--- NOTE | 2018-03-20 13:28 | HP ---
CHIEF COMPLAINT: rapid heart rate PCP: Dr Martino driving school instructor: Dr Sorenson chemical research engineer: Dr De Oliveira HISTORY OF PRESENT ILLNESS: patient is a 87-year-old female with a past medical history of atrial fibrillation (eliquis), restless leg syndrome, osteoarthritis, hypertension, HLD, and diasolic Congestive heart failure. Son is at the bedside who is the primary caregiver, reports fatigue since last , 03/15/2018 patient was evaluated by her primary care physician, Dr. Connie Pascual and was encouraged to continue current medication regimen. Son reports compliance with prescribed medications. However son reports palpitations earlier today and he noted her heart rate was in the 120s. Patient denies any dizziness chest pain or shortness of breath as a result she sought evaluation in the emergency department. ER course was notable for: (1)EKG sinus tachycardia rate 125 (2)Cardizem 5 mg IV push given in the emergency department patient converted to A. fib (3) troponin x 1 wnl Recent Travel: none PAST MEDICAL HISTORY:see history of present illness PAST SURGICAL HISTORY:noncontributory Social History: resides at home with son primary caregiver Smoking:none Alcohol:none Drugs: none Family History: noncontributory to this admission Allergies amoxicillin Allergy (Verified 03/20/18 11:05) HOME MEDICATIONS: Home Medications Medication Instructions Recorded Ropinirole HCl [Requip] 1 mg PO DAILY 04/10/17 Simvastatin 20 mg PO DAILY 04/10/17 Timolol 0.5% [Timoptic 0.5%] 1 drop OU BID 04/10/17 Apixaban [Eliquis] 2.5 mg PO BID #28 tablet 04/14/17 Allopurinol [Zyloprim -] 100 mg PO DAILY 09/25/17 Acetaminophen [Tylenol Arthritis] 650 mg PO DAILY 03/20/18 Diltiazem HCl [Diltiazem 24Hr ER] 60 mg PO BID 03/20/18 Docusate Sodium 100 mg PO DAILY 03/20/18 Hydralazine HCl 10 mg PO BID 03/20/18 Tramadol HCl 25 mg PO PRN PRN 03/20/18 REVIEW OF SYSTEMS CONSTITUTIONAL: Absent: fever, chills, diaphoresis, generalized weakness, malaise, loss of appetite, weight change HEENT: Absent: rhinorrhea, nasal congestion, throat pain, throat swelling, difficulty swallowing, mouth swelling, ear pain, eye pain, visual changes CARDIOVASCULAR: present: Palpitations Absent: chest pain, syncope, irregular heart rate, lightheadedness, peripheral edema RESPIRATORY: Absent: cough, shortness of breath, dyspnea with exertion, orthopnea, wheezing, stridor, hemoptysis GASTROINTESTINAL: Absent: abdominal pain, abdominal distension, nausea, vomiting, diarrhea, constipation, melena, hematochezia GENITOURINARY: Absent: dysuria, frequency, urgency, hesitancy, hematuria, flank pain, genital pain MUSCULOSKELETAL: Absent: myalgia, arthralgia, joint swelling, back pain, neck pain SKIN: Absent: rash, itching, pallor HEMATOLOGIC/IMMUNOLOGIC: Absent: easy bleeding, easy bruising, lymphadenopathy, frequent infections ENDOCRINE: Absent: unexplained weight gain, unexplained weight loss, heat intolerance, cold intolerance NEUROLOGIC: Absent: headache, focal weakness or paresthesias, dizziness, unsteady gait, seizure, mental status changes, bladder or bowel incontinence PSYCHIATRIC: Absent: anxiety, depression, suicidal or homicidal ideation, hallucinations. PHYSICAL EXAMINATION Vital Signs - 24 hr 03/20/18 03/20/18 03/20/18 11:04 12:20 12:38 Temperature 98.5 F 98.5 F Pulse Rate 126 H Pulse Rate [ 112 H 127 H Right] Respiratory 20 20 20 Rate Blood Pressure 112/63 Blood Pressure 112/69 102/63 [Left Arm] O2 Sat by Pulse 98 98 97 Oximetry (%) 03/20/18 03/20/18 13:05 13:09 Temperature Pulse Rate Pulse Rate [ 77 63 Right] Respiratory 20 20 Rate Blood Pressure Blood Pressure 81/53 104/51 [Left Arm] O2 Sat by Pulse 100 100 Oximetry (%) GENERAL: Awake, alert, and fully oriented, in no acute distress. HEAD: Normal with no signs of trauma. EYES: Pupils equal, round and reactive to light, extraocular movements intact, sclera anicteric, conjunctiva clear. No lid lag. EARS, NOSE, THROAT: Ears normal, nares patent, oropharynx clear without exudates. Moist mucous membranes. NECK: Normal range of motion, supple without lymphadenopathy, JVD, or masses. LUNGS: Breath sounds equal, clear to auscultation bilaterally. No wheezes, and no crackles. No accessory muscle use. HEART: irregular, rate and rhythm, normal S1 and S2 without murmur, rub or gallop. ABDOMEN: Soft, nontender, not distended, normoactive bowel sounds, no guarding, no rebound, no masses. No hepatomegaly or splenomegaly. MUSCULOSKELETAL: Normal range of motion at all joints. No bony deformities or tenderness. No CVA tenderness. UPPER EXTREMITIES: 2+ pulses, warm, well-perfused. No cyanosis. No clubbing. No peripheral edema. LOWER EXTREMITIES: right knee pain upon palpation and ROM (chronic as per patient) 2+ pulses, warm, well-perfused. No calf tenderness. No peripheral edema. NEUROLOGICAL: Cranial nerves II-XII intact. Normal speech. Normal gait. PSYCHIATRIC: Cooperative. Good eye contact. Appropriate mood and affect. SKIN: Warm, dry, normal turgor, no rashes or lesions noted, normal capillary refill. Laboratory Results - last 24 hr 03/20/18 03/20/18 03/20/18 11:52 11:52 11:52 WBC 9.2 D RBC 3.79 Hgb 10.1 L D Hct 30.8 L MCV 81.2 MCH 26.6 MCHC 32.7 RDW 21.1 H D Plt Count 504 H MPV 8.1 Neutrophils % 68.1 Lymphocytes % 13.3 Monocytes % 15.5 H Eosinophils % 1.3 Basophils % 1.8 PT with INR 16.6 H INR 1.49 H Sodium 134 L Potassium 4.3 Chloride 99 Carbon Dioxide 25 Anion Gap 10 BUN 20 H Creatinine 1.2 Creat Clearance w eGFR 42.40 Random Glucose 118 H Calcium 8.2 L Magnesium 1.9 Total Bilirubin < 0.5 D AST 18 ALT 16 Alkaline Phosphatase 103 H D Creatine Kinase Troponin I Total Protein 6.1 L Albumin 3.0 L 03/20/18 03/20/18 11:52 11:52 WBC RBC Hgb Hct MCV MCH MCHC RDW Plt Count MPV Neutrophils % Lymphocytes % Monocytes % Eosinophils % Basophils % PT with INR INR Sodium Potassium Chloride Carbon Dioxide Anion Gap BUN Creatinine Creat Clearance w eGFR Random Glucose Calcium Magnesium Total Bilirubin AST ALT Alkaline Phosphatase Creatine Kinase 19 L Troponin I < 0.03 Total Protein Albumin Laboratory Tests 04/11/17 03/20/18 05:35 11:52 B-Natriuretic Peptide 27733.11 H 5941.88 H ASSESSMENT/PLAN: 1) cardiovascular atrial fibrillation - 5 mg of Cardizem IV push given in the emergency department patient noted to be in A. 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 Torres, last echocardiogram was completed in December 2018 LV 70%, moderate MR moderate TR and severe pulmonary hypertension - continue telemetry monitoring - appreciate cardiology input patient's private driving school instructor Dr Couch diastolic congestive heart failure - BNP 5941 significantly less than prior BNP from 04/11/2017 - patient appears euvolemic on exam strict intake and output and daily weights hypertension - blood pressure at goal continue hydralazine and Cardizem 2) MS osteoarthritis - continue home dose of Ultram and Tylenol when necessary - physical therapy consult 3) neuro restless syndrome - continue requip f/e/n - low sodium diet - replete electrolytes when necessary ppx - oob - Physical therapy evaluation - eliquis dispo: pt requires observation telemetry. - Visit type - Emergency Visit Emergency Visit: Yes ED Registration Date: 03/20/18 Care time: The patient presented to the Emergency Department on the above date and was hospitalized for further evaluation of their emergent condition. - New Patient This patient is new to me today: Yes Date on this admission: 03/20/18 - Critical Care Critical Care patient: No Hospitalist Screening - Colonoscopy Questionnaire Colonoscopy Questionnaire: Colonoscopy Questionnaire - Patient: 50 - 75 years old and never had a screening colonoscopy: Yes History of colon or rectal polyps, or CA: No History of IBD, Crohn's disease or UC: No History of abdominal radiation therapy as a child: No - Relative: 1 with colon or rectal CA, or polyps at age 60 or younger: No Colon or rectal CA diagnosed at age 45 or younger: No Multiple relatives with colon or rectal CA: No - Outcome: Screening Result: Positive Screen
[2018-03-20 14:50] LABS: PH,URINE 5.5 (4.5-8); URINE APPEARANCE SL CLOUDY; URINE BILIRUBIN Negative (NEGATIVE); URINE COLOR AMBER; URINE GLUCOSE (UA) Negative (NEGATIVE); URINE KETONE Negative (NEGATIVE); URINE LEUK ESTERASE Negative (NEGATIVE); URINE NITRITE Negative (NEGATIVE); URINE PROTEIN 2+ (NEGATIVE); URINE UROBILINOGEN 0.2 (0.2-1.0)
[2018-03-20 15:12] LABS: EPI CELLS FEW /HPF; URINE RBC 0-1 /hpf (0-3)
[2018-03-20 15:23] LABS: ANISOCYTOSIS 2+; PLATELET ESTIMATE INCREASED
--- NOTE | 2018-03-20 16:20 | EKG ---
Test Reason : Blood Pressure : / mmHG Vent. Rate : 125 BPM Atrial Rate : 125 BPM P-R Int : 000 ms QRS Dur : 118 ms QT Int : 326 ms P-R-T Axes : 000 -52 114 degrees QTc Int : 470 ms SINUS TACHYCARDIA LEFT AXIS DEVIATION NON-SPECIFIC INTRA-VENTRICULAR CONDUCTION DELAY NONSPECIFIC ST AND T WAVE ABNORMALITY ABNORMAL ECG WHEN COMPARED WITH ECG OF 14-JUN-2017 22:46, PREMATURE SUPRAVENTRICULAR COMPLEXES ARE NO LONGER PRESENT VENT. RATE HAS INCREASED BY 62 BPM Confirmed by MD Adama, Juan ([id number]) on 03/20/2018 4:20:30 PM Referred By: KAYLIN GONZALES Confirmed By:Juan Galan MD
--- NOTE | 2018-03-20 16:20 | EKG ---
Test Reason : Blood Pressure : / mmHG Vent. Rate : 069 BPM Atrial Rate : 249 BPM P-R Int : 000 ms QRS Dur : 120 ms QT Int : 412 ms P-R-T Axes : 000 -49 099 degrees QTc Int : 441 ms ATRIAL FLUTTER WITH VARIABLE A-V BLOCK LEFT AXIS DEVIATION ANTERIOR INFARCT , AGE UNDETERMINED ABNORMAL ECG WHEN COMPARED WITH ECG OF 20-MAR-2018 11:23, ATRIAL FLUTTER HAS REPLACED SINUS RHYTHM VENT. RATE HAS DECREASED BY 56 BPM Confirmed by MD Adama, Juan ([id number]) on 03/20/2018 4:20:18 PM Referred By: KAYLIN NETTLES Confirmed By:Juan Galan MD
--- NOTE | 2018-03-20 19:23 | CON.CARD ---
Consult Consult Specialty:: cardiology Reason for Consultation:: tachycardia; shortness of breath - History of Present Illness Chief Complaint: Pt, with son present, c/o right >left knee pain, right hip pain ; denies chest pain or palpitations; not SOB History of Present Illness: The patient is an 87 year old white female with a history of HTN, HLD, CHF, Afib , Anemia who presents for evaluation of tachycardia. The patient is accompanied by family who assist in providing the history. They note that the patient's heart rate has gradually been elevating over the past week. The patient was evaluated for a routine follow up by her primary care provider 5 days ago and was noted to be normal at that time. The patient's family noted that the patient's heart rate was elevated to 125 today prompting her presentation to the ED for evaluation. The patient denies any symptoms currently and notes that she has been compliant with all her medications. She otherwise denies fevers, chills, SOB, chest pain, cough, nausea, vomiting, abdominal pain, or changes with urination or bowel movements. - History Source History Provided By: Patient, Family Member, Medical Record Limitations to Obtaining History: No Limitations - Past Medical History Cardio/Vascular: Yes: AFIB (New onset), HTN, Hyperlipdemia Reproductive: Yes: Postmenopausal ...: No Heme/Onc: Yes: Anemia Musculoskeletal: Yes: Osteoarthritis Additional Medical History: Glaucoma - Past Surgical History Past Surgical History: Yes: Hysterectomy - Alcohol/Substance Use Hx Alcohol Use: No History of Substance Use: reports: None - Smoking History Smoking history: Never smoked Have you smoked in the past 12 months: No Aproximately how many cigarettes per day: 0 Home Medications - Allergies Allergies/Adverse Reactions: Allergies Allergy/AdvReac Type Severity Reaction Status Date / Time amoxicillin Allergy Verified 03/20/18 11:05 - Home Medications Home Medications: Ambulatory Orders Ropinirole HCl [Requip] 1 mg PO DAILY 04/10/17 Simvastatin 20 mg PO DAILY 04/10/17 Timolol 0.5% [Timoptic 0.5%] 1 drop OU BID 04/10/17 Apixaban [Eliquis] 2.5 mg PO BID #28 tablet 04/14/17 Allopurinol [Zyloprim -] 100 mg PO DAILY 09/25/17 Acetaminophen [Tylenol Arthritis] 650 mg PO DAILY 03/20/18 Diltiazem HCl [Diltiazem 24Hr ER] 60 mg PO BID 03/20/18 Docusate Sodium 100 mg PO DAILY 03/20/18 Hydralazine HCl 10 mg PO BID 03/20/18 Tramadol HCl 25 mg PO PRN PRN 03/20/18 Family Disease History - Family Disease History Family History: Denies Review of Systems - Review of Systems Constitutional: reports: Weakness Eyes: reports: Blurred Vision, Other (glaucoma) HENT: reports: Hearing Loss Neck: reports: No Symptoms Cardiovascular: reports: Shortness of Breath Respiratory: reports: SOB Gastrointestinal: reports: No Symptoms Genitourinary: reports: No Symptoms Breasts: reports: No Symptoms Reported Musculoskeletal: reports: Joint Pain, Joint Swelling, Muscle Weakness Integumentary: reports: No Symptoms Neurological: reports: Weakness Endocrine: reports: No Symptoms Hematology/Lymphatic: reports: No Symptoms Psychiatric: reports: Other - Risk Factors Known Risk Factors: Yes: Age, Hypercholesterolemia, Hypertension, Physical Inactivity, Other (AF; diastolic CHF) Vital Signs: Vital Signs Temperature 98.3 F 03/20/18 15:00 Pulse Rate 82 03/20/18 16:10 Respiratory Rate 19 03/20/18 16:10 Blood Pressure 118/72 03/20/18 16:10 O2 Sat by Pulse Oximetry (%) 100 03/20/18 16:10 Constitutional: Yes: Anxious Eyes: Yes: WNL HENT: Yes: WNL Neck: Yes: WNL Respiratory: Yes: WNL Gastrointestinal: Yes: WNL, Soft Renal/: No: Anuria Cardiovascular: Yes: Pulse Irregular JVD: No Carotid Bruit: No PMI: Non-Displaced Heart Sounds: Yes: S1 (varies in intensity), S2 Murmur: Yes: Systolic Murmur, Grade 1 Musculoskeletal: Yes: Joint Stiffness, Joint Swelling, Muscle Weakness Extremities: Yes: Cool Edema: No Peripheral Pulses WNL: Yes Integumentary: Yes: WNL Neurological: Yes: Alert, Weakness Psychiatric: Yes: Alert, Other (anxiety) - Other Data Labs, Other Data: CBC, BMP 03/20/18 11:52 03/20/18 11:52 INR, PTT INR 1.49 (0.82-1.09) H 03/20/18 11:52 Troponin, BNP 05/03/20/18 03/20/18 11:52 11:52 18:02 Troponin I < 0.03 < 0.03 B-Natriuretic Peptide 5941.88 H Troponin, BNP 03/20/18 03/20/18 03/20/18 11:52 11:52 18:02 Troponin I < 0.03 < 0.03 B-Natriuretic Peptide 5941.88 H Abnormal Lab Results 03/20/18 03/20/18 03/20/18 11:52 11:52 11:52 Hgb 10.1 L D Hct 30.8 L RDW 21.1 H D Plt Count 504 H Monocytes % 15.5 H PT with INR 16.6 H INR 1.49 H Sodium 134 L BUN 20 H Random Glucose 118 H Calcium 8.2 L Alkaline Phosphatase 103 H D Creatine Kinase B-Natriuretic Peptide Total Protein 6.1 L Albumin 3.0 L Urine Protein 03/20/18 03/20/18 03/20/18 11:52 11:52 14:31 Hgb Hct RDW Plt Count Monocytes % PT with INR INR Sodium BUN Random Glucose Calcium Alkaline Phosphatase Creatine Kinase 19 L B-Natriuretic Peptide 5941.88 H Total Protein Albumin Urine Protein 2+ H 03/20/18 18:02 Hgb Hct RDW Plt Count Monocytes % PT with INR INR Sodium BUN Random Glucose Calcium Alkaline Phosphatase Creatine Kinase 14 L B-Natriuretic Peptide Total Protein Albumin Urine Protein Imaging - Results Chest X-ray: Image Reviewed (enlarged heart; no acute lung pathology) EKG: Image Reviewed (Atrial flutter with variable AV block; LAD; ? old anterior infarct) Problem List - Problems (1) Atrial flutter with rapid ventricular response Assessment/Plan: On diltiazem (can use diltiazem CD 120 mg daily, as hospital does not have SR 60 mg). On apixaban for anticoagulation. F/u TSH. f/u on air sampling and monitoring. F/u ECHO Code(s): I48.92 - UNSPECIFIED ATRIAL FLUTTER (2) Chronic kidney disease Code(s): N18.9 - CHRONIC KIDNEY DISEASE, UNSPECIFIED Qualifiers: Chronic kidney disease stage: stage 2 (mild) Qualified Code(s): N18.2 - Chronic kidney disease, stage 2 (mild) (3) HTN (hypertension) Assessment/Plan: On diltiazem and hydralazine. Code(s): I10 - ESSENTIAL (PRIMARY) HYPERTENSION Qualifiers: Hypertension type: essential hypertension Qualified Code(s): I10 - Essential (primary) hypertension (4) Hypercholesterolemia Assessment/Plan: on statin; f/u lipid profile. Code(s): E78.00 - PURE HYPERCHOLESTEROLEMIA, UNSPECIFIED (5) Osteoarthritis Assessment/Plan: Pain management: lidocaine patch for right knee; BenGay ointment (Pt has considered possible knee replacement in the past, though the surgery and subsequent rehabilitation would be major challenges). Code(s): M19.90 - UNSPECIFIED OSTEOARTHRITIS, UNSPECIFIED SITE Qualifiers: Osteoarthritis location: knee Osteoarthritis type: unspecified Laterality : right Qualified Code(s): M17.11 - Unilateral primary osteoarthritis, right knee (6) Pericardial effusion Assessment/Plan: effusion on 2017 ECHO. Enlarged heart on CXR this admission. For repeat ECHO in am. Code(s): I31.3 - PERICARDIAL EFFUSION (NONINFLAMMATORY) (7) Acute on chronic diastolic (congestive) heart failure Assessment/Plan: On diltiazem, hydralazine. No JVD BNP elevated (but twice as high in 03/2017 admission). TNI < 0.02 x 2 F/u ECHO for LVEF, hx of pericardial effusion. Gentle hydration. BUN/Cr, daily weight, Is and Os, electrolytes. Code(s): I50.33 - ACUTE ON CHRONIC DIASTOLIC (CONGESTIVE) HEART FAILURE
[2018-03-20] MEDS: LIDOCAINE 5% TOPICAL PATCH TP SCH (20:38)
[2018-03-20 21:08] LABS: CHOLESTEROL 96 mg/dl; HDL CHOLESTEROL 37 mg/dl (29-89); LDL CHOLESTEROL (ONLY DFH) 44 mg/dl; TRIGLYCERIDES 74 mg/dl (35-160)
[2018-03-20] MEDS ORDERED: LIDOCAINE PATCH REMOVAL MC SCH (22:00)
[2018-03-20] MEDS: hydrALAZINE HCL 10 MG TABLET PO SCH (22:25)
[2018-03-20] MEDS: ATORVASTATIN CA 10 MG TABLET (FP) PO SCH (22:25)
[2018-03-20] MEDS: APIXABAN 2.5 MG TABLET PO SCH (22:26)
[2018-03-20] MEDS: TIMOLOL 0.5% OPHTHALMIC SOL 5 ML BOTTLE OU SCH (23:19)
[2018-03-20] MEDS: METHYL SALICYLATE/MENTHOL OINT 30 GM TUBE TP SCH (23:19)
[2018-03-20] MEDS ORDERED: ACETAMINOPHEN 325 MG TABLET (FP) PO PRN (23:52)
--- NOTE | 2018-03-21 08:24 | PN ---
Physical Exam: SUBJECTIVE: Patient seen and examined, sitting in bedside chair, denies any chest pain or shortness of breath, patient reports feeling well, she wants to go home. OBJECTIVE: patient is a 87-year-old female with a past medical history of atrial fibrillation (eliquis), restless leg syndrome, osteoarthritis, hypertension, HLD, and diasolic Congestive heart failure. Patient was admitted from the emergency department for afib w/rvr. Vital Signs Period Temp Pulse Resp BP Sys/Kraus Pulse Ox Last 24 Hr 98.3 F-98.6 F 63-127 16-20 81-143/51-88 95-100 GENERAL: The patient is awake, alert, and fully oriented, in no acute distress. HEAD: Normal with no signs of trauma. EYES: PERRL, extraocular movements intact, sclera anicteric, conjunctiva clear. No ptosis. ENT: Ears normal, nares patent, oropharynx clear without exudates, moist mucous membranes. NECK: Trachea midline, full range of motion, supple. LUNGS: Breath sounds equal, clear to auscultation bilaterally, no wheezes, no crackles, no accessory muscle use. HEART: irregular rate and rhythm, S1, S2 without murmur, rub or gallop. ABDOMEN: Soft, nontender, nondistended, normoactive bowel sounds, no guarding, no rebound, no hepatosplenomegaly, no masses. EXTREMITIES: 2+ pulses, warm, well-perfused, no edema. NEUROLOGICAL: Cranial nerves II through XII grossly intact. Normal speech, gait not observed. PSYCH: Normal mood, normal affect. SKIN: Warm, dry, normal turgor, no rashes or lesions noted Laboratory Results - last 24 hr 03/20/18 03/20/18 03/20/18 11:52 11:52 11:52 WBC 9.2 D RBC 3.79 Hgb 10.1 L D Hct 30.8 L MCV 81.2 MCH 26.6 MCHC 32.7 RDW 21.1 H D Plt Count 504 H MPV 8.1 Neutrophils % 68.1 Lymphocytes % 13.3 Monocytes % 15.5 H Eosinophils % 1.3 Basophils % 1.8 Platelet Estimate Increased Anisocytosis 2+ PT with INR 16.6 H INR 1.49 H Sodium 134 L Potassium 4.3 Chloride 99 Carbon Dioxide 25 Anion Gap 10 BUN 20 H Creatinine 1.2 Creat Clearance w eGFR 42.40 Random Glucose 118 H Calcium 8.2 L Magnesium 1.9 Total Bilirubin < 0.5 D AST 18 ALT 16 Alkaline Phosphatase 103 H D Creatine Kinase Troponin I B-Natriuretic Peptide Total Protein 6.1 L Albumin 3.0 L Triglycerides Cholesterol Total LDL Cholesterol HDL Cholesterol TSH Free T4 Urine Color Urine Appearance Urine pH Ur Specific [place] Urine Protein Urine Glucose (UA) Urine Ketones Urine Blood Urine Nitrite Urine Bilirubin Urine Urobilinogen Ur Leukocyte Esterase Urine RBC Urine WBC Ur Epithelial Cells 03/20/18 03/20/18 03/20/18 11:52 11:52 11:52 WBC RBC Hgb Hct MCV MCH MCHC RDW Plt Count MPV Neutrophils % Lymphocytes % Monocytes % Eosinophils % Basophils % Platelet Estimate Anisocytosis PT with INR INR Sodium Potassium Chloride Carbon Dioxide Anion Gap BUN Creatinine Creat Clearance w eGFR Random Glucose Calcium Magnesium Total Bilirubin AST ALT Alkaline Phosphatase Creatine Kinase 19 L Troponin I < 0.03 B-Natriuretic Peptide 5941.88 H Total Protein Albumin Triglycerides Cholesterol Total LDL Cholesterol HDL Cholesterol TSH Free T4 Urine Color Urine Appearance Urine pH Ur Specific [place] Urine Protein Urine Glucose (UA) Urine Ketones Urine Blood Urine Nitrite Urine Bilirubin Urine Urobilinogen Ur Leukocyte Esterase Urine RBC Urine WBC Ur Epithelial Cells 03/20/18 03/20/18 03/20/18 14:31 18:00 18:02 WBC RBC Hgb Hct MCV MCH MCHC RDW Plt Count MPV Neutrophils % Lymphocytes % Monocytes % Eosinophils % Basophils % Platelet Estimate Anisocytosis PT with INR INR Sodium Potassium Chloride Carbon Dioxide Anion Gap BUN Creatinine Creat Clearance w eGFR Random Glucose Calcium Magnesium Total Bilirubin AST ALT Alkaline Phosphatase Creatine Kinase Troponin I < 0.03 B-Natriuretic Peptide Total Protein Albumin Triglycerides 74 Cholesterol 96 Total LDL Cholesterol 44 HDL Cholesterol 37 TSH Free T4 Urine Color Sherrie Urine Appearance Sl cloudy Urine pH 5.5 Ur Specific [place] 1.015 Urine Protein 2+ H Urine Glucose (UA) Negative Urine Ketones Negative Urine Blood Negative Urine Nitrite Negative Urine Bilirubin Negative Urine Urobilinogen 0.2 Ur Leukocyte Esterase Negative Urine RBC 0-1 Urine WBC 2-5 Ur Epithelial Cells Few 03/20/18 03/20/18 18:02 18:02 WBC RBC Hgb Hct MCV MCH MCHC RDW Plt Count MPV Neutrophils % Lymphocytes % Monocytes % Eosinophils % Basophils % Platelet Estimate Anisocytosis PT with INR INR Sodium Potassium Chloride Carbon Dioxide Anion Gap BUN Creatinine Creat Clearance w eGFR Random Glucose Calcium Magnesium Total Bilirubin AST ALT Alkaline Phosphatase Creatine Kinase < 38 Troponin I B-Natriuretic Peptide Total Protein Albumin Triglycerides Cholesterol Total LDL Cholesterol HDL Cholesterol TSH Cancelled 3.66 Free T4 0.93 Urine Color Urine Appearance Urine pH Ur Specific [place] Urine Protein Urine Glucose (UA) Urine Ketones Urine Blood Urine Nitrite Urine Bilirubin Urine Urobilinogen Ur Leukocyte Esterase Urine RBC Urine WBC Ur Epithelial Cells Active Medications Generic Name Dose Route Start Last Admin Trade Name Freq PRN Reason Stop Dose Admin Acetaminophen 650 mg 03/20/18 23:52 Tylenol - PO Q4H PRN PAIN OR FEVER Allopurinol 100 mg 03/21/18 10:00 Zyloprim - PO DAILY ROSEANNE Apixaban 2.5 mg 03/20/18 22:00 03/20/18 22:26 Eliquis - PO 2.5 mg BID ROSEANNE Administration Atorvastatin Calcium 10 mg 03/20/18 22:00 03/20/18 22:25 Lipitor - PO 10 mg HS ROSEANNE Administration Diltiazem HCl 120 mg 03/21/18 10:00 Cardizem Cd - PO DAILY [facility] Docusate Sodium 100 mg 03/21/18 10:00 Colace - PO DAILY ROSEANNE Hydralazine HCl 10 mg 03/20/18 22:00 03/20/18 22:25 Apresoline - PO 10 mg BID ROSEANNE Administration Lidocaine 1 patch 03/20/18 19:45 03/20/18 20:38 Lidoderm Patch - TP 1 patch DAILY ROSEANNE Administration Methyl Salicylate 1 applic 03/20/18 22:00 03/20/18 23:19 John-Muñoz - TP 1 applic BID ROSEANNE Administration Miscellaneous 1 each 03/20/18 22:00 Lidoderm Patch Removal MC DAILY@2200 [facility] Ropinirole HCl 1 mg 03/21/18 10:00 Requip - PO DAILY [facility] Timolol Maleate 1 drop 03/20/18 22:00 03/20/18 23:19 Timoptic 0.5% OU 1 drop BID ROSEANNE Administration Tramadol HCl 25 mg 03/20/18 19:53 03/20/18 20:38 Ultram - PO 25 mg Q6H PRN Administration PAIN 7-10 ASSESSMENT/PLAN: 1) cardiovascular atrial fibrillation w rvr - ventricular rate 110, continue cardizem 120mg daily - last echo was December 2018 LV 70%, moderate MR moderate TR and severe pulmonary hypertension, pending repeat echo - continue telemetry monitoring - cardiology consulted and followed patient's private nurse [employer] Dr Couch diastolic congestive heart failure - BNP 5941 significantly less than prior BNP from 04/11/2017 - patient appears euvolemic on exam strict intake and output and daily weights hypertension - blood pressure at goal continue hydralazine and Cardizem 2) MS osteoarthritis - continue home dose of Ultram and Tylenol when necessary - physical therapy eval 3) neuro restless syndrome - continue requip f/e/n - low sodium diet - replete electrolytes when necessary ppx - oob - Physical therapy evaluation - eliquis dispo: pt requires observation telemetry. Visit type - Emergency Visit Emergency Visit: Yes ED Registration Date: 03/20/18 Care time: The patient presented to the Emergency Department on the above date and was hospitalized for further evaluation of their emergent condition. - New Patient This patient is new to me today: No - Critical Care Critical Care patient: No - Discharge Referral Referred to [facility] No
[2018-03-21] MEDS ORDERED: PT OWN MED DRAWER 7, Y5N ONE ×2 (09:34→21:05)
[2018-03-21] MEDS ORDERED: PATIENT'S OWN MEDICATION (NON-FORMULARY) (Simvastatin [Simvastatin] 20 MG) PO SCH (10:00)
[2018-03-21] MEDS: TIMOLOL 0.5% OPHTHALMIC SOL 5 ML BOTTLE OU SCH ×2 (10:03→21:11)
[2018-03-21] MEDS: DOCUSATE SODIUM 100 MG CAPSULE (FP) PO SCH (10:03)
[2018-03-21] MEDS: LIDOCAINE 5% TOPICAL PATCH TP SCH (10:03)
[2018-03-21] MEDS: hydrALAZINE HCL 10 MG TABLET PO SCH ×2 (10:03→21:09)
[2018-03-21] MEDS: APIXABAN 2.5 MG TABLET PO SCH ×2 (10:03→21:10)
[2018-03-21] MEDS: METHYL SALICYLATE/MENTHOL OINT 30 GM TUBE TP SCH ×2 (10:04→21:10)
[2018-03-21] MEDS: rOPINIRole HCL 1 MG TABLET (FP) PO SCH (10:07)
[2018-03-21] MEDS: ALLOPURINOL 100 MG TABLET (FP) PO SCH (10:08)
--- NOTE | 2018-03-21 10:25 | PN ---
Progress Note, Physician History of Present Illness: The patient is an 87 year old white female with a history of HTN, HLD, CHF, Afib , Anemia who presents for evaluation of tachycardia. The patient is accompanied by family who assist in providing the history. They note that the patient's heart rate has gradually been elevating over the past week. The patient was evaluated for a routine follow up by her primary care provider 5 days ago and was noted to be normal at that time. The patient's family noted that the patient's heart rate was elevated to 125 today prompting her presentation to the ED for evaluation. The patient denies any symptoms currently and notes that she has been compliant with all her medications. She otherwise denies fevers, chills, SOB, chest pain, cough, nausea, vomiting, abdominal pain, or changes with urination or bowel movements. - Current Medication List Current Medications: Active Medications Acetaminophen (Tylenol -) 650 mg PO Q4H PRN PRN Reason: PAIN OR FEVER Allopurinol (Zyloprim -) 100 mg PO DAILY [facility] Last Admin: 03/21/18 10:08 Dose: 100 mg Apixaban (Eliquis -) 2.5 mg PO BID [facility] Last Admin: 03/21/18 10:03 Dose: 2.5 mg Atorvastatin Calcium (Lipitor -) 10 mg PO HS [facility] Last Admin: 03/20/18 22:25 Dose: 10 mg Diltiazem HCl (Cardizem Cd -) 120 mg PO DAILY [facility] Last Admin: 03/21/18 10:03 Dose: 120 mg Docusate Sodium (Colace -) 100 mg PO DAILY [facility] Last Admin: 03/21/18 10:03 Dose: 100 mg Hydralazine HCl (Apresoline -) 10 mg PO BID [facility] Last Admin: 03/21/18 10:03 Dose: 10 mg Lidocaine (Lidoderm Patch -) 1 patch TP DAILY [facility] Last Admin: 03/21/18 10:03 Dose: 1 patch Methyl Salicylate (John-Muñoz -) 1 applic TP BID [facility] Last Admin: 03/21/18 10:04 Dose: 1 applic Miscellaneous (Lidoderm Patch Removal) 1 each MC DAILY@2200 [facility] Ropinirole HCl (Requip -) 1 mg PO DAILY [facility] Last Admin: 03/21/18 10:07 Dose: 1 mg Timolol Maleate (Timoptic 0.5%) 1 drop OU BID [facility] Last Admin: 03/21/18 10:03 Dose: 1 drop Tramadol HCl (Ultram -) 25 mg PO Q6H PRN PRN Reason: PAIN 7-10 Last Admin: 03/20/18 20:38 Dose: 25 mg - Objective Vital Signs: Vital Signs Temperature 98.0 F 03/21/18 09:48 Pulse Rate 110 H 03/21/18 09:48 Respiratory Rate 18 03/21/18 09:48 Blood Pressure 116/48 03/21/18 09:48 O2 Sat by Pulse Oximetry (%) 95 03/21/18 06:54 Eyes: Yes: WNL, Conjunctiva Clear, EOM Intact HENT: Yes: WNL, Atraumatic, Normocephalic Neck: Yes: WNL, Supple, Trachea Midline Cardiovascular: Yes: Pulse Irregular Respiratory: Yes: WNL Gastrointestinal: Yes: WNL, Normal Bowel Sounds Genitourinary: Yes: WNL Musculoskeletal: Yes: WNL Extremities: Yes: WNL Edema: No Integumentary: Yes: WNL Neurological: Yes: WNL, Alert, Oriented ...Motor Strength: WNL Psychiatric: Yes: WNL Labs: CBC, BMP 03/20/18 11:52 03/20/18 11:52 INR, PTT INR 1.49 (0.82-1.09) H 03/20/18 11:52 Assessment/Plan - Problems (1) Atrial flutter with rapid ventricular response Assessment/Plan: On diltiazem (can use diltiazem CD 120 mg daily, as hospital does not have SR 60 mg). On apixaban for anticoagulation. F/u TSH. f/u on radiation monitor. F/u ECHO Code(s): I48.92 - UNSPECIFIED ATRIAL FLUTTER (2) Chronic kidney disease Code(s): N18.9 - CHRONIC KIDNEY DISEASE, UNSPECIFIED Qualifiers: Chronic kidney disease stage: stage 2 (mild) Qualified Code(s): N18.2 - Chronic kidney disease, stage 2 (mild) (3) HTN (hypertension) Assessment/Plan: On diltiazem and hydralazine. Code(s): I10 - ESSENTIAL (PRIMARY) HYPERTENSION Qualifiers: Hypertension type: essential hypertension Qualified Code(s): I10 - Essential (primary) hypertension (4) Hypercholesterolemia Assessment/Plan: on statin; f/u lipid profile. Code(s): E78.00 - PURE HYPERCHOLESTEROLEMIA, UNSPECIFIED (5) Osteoarthritis Assessment/Plan: Pain management: lidocaine patch for right knee; BenGay ointment (Pt has considered possible knee replacement in the past, though the surgery and subsequent rehabilitation would be major challenges). Code(s): M19.90 - UNSPECIFIED OSTEOARTHRITIS, UNSPECIFIED SITE Qualifiers: Osteoarthritis location: knee Osteoarthritis type: unspecified Laterality : right Qualified Code(s): M17.11 - Unilateral primary osteoarthritis, right knee (6) Pericardial effusion Assessment/Plan: effusion on 2017 ECHO. Enlarged heart on CXR this admission. For repeat ECHO in am. Code(s): I31.3 - PERICARDIAL EFFUSION (NONINFLAMMATORY) (7) Acute on chronic diastolic (congestive) heart failure Assessment/Plan: On diltiazem, hydralazine. No JVD BNP elevated (but twice as high in 03/2017 admission). TNI < 0.02 x 2 F/u ECHO for LVEF, hx of pericardial effusion. Gentle hydration. BUN/Cr, daily weight, Is and Os, electrolytes. Code(s): I50.33 - ACUTE ON CHRONIC DIASTOLIC (CONGESTIVE) HEART FAILURE
--- NOTE | 2018-03-21 11:13 | EKG ---
Test Reason : Blood Pressure : / mmHG Vent. Rate : 105 BPM Atrial Rate : 115 BPM P-R Int : 000 ms QRS Dur : 112 ms QT Int : 362 ms P-R-T Axes : 000 -54 094 degrees QTc Int : 478 ms ATRIAL FIBRILLATION WITH RAPID VENTRICULAR RESPONSE LEFT AXIS DEVIATION ANTEROLATERAL INFARCT (CITED ON OR BEFORE 20-MAR-2018) ABNORMAL ECG WHEN COMPARED WITH ECG OF 20-MAR-2018 12:58, ATRIAL FIBRILLATION HAS REPLACED ATRIAL FLUTTER VENT. RATE HAS INCREASED BY 36 BPM Confirmed by NURYS TURNER, CANDELARIA ([id number]) on 03/21/2018 11:13:08 AM Referred By: Confirmed By:CANDELARIA NUNO MD
[2018-03-21 12:35] LABS: ANION GAP 7 (8-16); BLOOD UREA NITROGEN 19 mg/dl (7-18); CHLORIDE 103 mmol/L (98-107); CO2 27 mmol/L (22-28); CREATININE 1.2 mg/dl (0.6-1.3); GLUCOSE,RANDOM 119 mg/dl (74-106); POTASSIUM 4.2 mmol/L (3.5-5.1); SODIUM 137 mmol/L (136-145)
[2018-03-21 16:44] LABS: EOS % 1.1 % (0-4.5); HEMOGLOBIN 10.7 GM/dl (10.7-15.3); LYMPH % 11.9 % (8-40); MCH 27.8 pg (25.7-33.7); MCHC 33.5 g/dl (32.0-36.0); MEAN CELL VOLUME 82.8 fl (80-96); MEAN PLT VOLUME 7.8 fl (7.5-11.1); MONO % 17.2 % (3.8-10.2); NEUT % 68.8 % (42.8-82.8); PLATELET COUNT 548 K/MM3 (134-434); RBC 3.86 M/mm3 (3.60-5.2); RDW 21.4 % (11.6-15.6); WHITE BLOOD COUNT 10.4 K/mm3 (4.0-10.8)
[2018-03-21 16:50] LABS: ALBUMIN 3.3 g/dl (3.5-5.0); ALK PHOS 129 U/L (32-92); ANION GAP 10 (8-16); BLOOD UREA NITROGEN 20 mg/dl (7-18); CALCIUM 9.1 mg/dl (8.4-10.2); CHLORIDE 104 mmol/L (98-107); CO2 24 mmol/L (22-28); CREATININE 1.2 mg/dl (0.6-1.3); GLUCOSE,RANDOM 116 mg/dl (74-106); PHOSPHOROUS 3.9 mg/dl (2.5-4.6); POTASSIUM 4.3 mmol/L (3.5-5.1); SGOT/AST 18 U/L (10-42); SGPT/ALT 16 U/L (10-40); SODIUM 138 mmol/L (136-145); TOT PROT 6.7 g/dl (6.4-8.3)
[2018-03-21 17:08] LABS: BILIRUBIN,TOTAL < 0.5 mg/dl (0.2-1.0)
[2018-03-21] MEDS: ATORVASTATIN CA 10 MG TABLET (FP) PO SCH (21:09)
[2018-03-21] MEDS ORDERED: dilTIAZem HCL 60 MG TABLET (FP) PO SCH (22:00)
[2018-03-22] MEDS ORDERED: dilTIAZem HCL 60 MG TABLET (FP) PO ONE (10:07)
[2018-03-22] MEDS: hydrALAZINE HCL 10 MG TABLET PO SCH (10:08)
[2018-03-22] MEDS: DOCUSATE SODIUM 100 MG CAPSULE (FP) PO SCH (10:10)
[2018-03-22] MEDS: METHYL SALICYLATE/MENTHOL OINT 30 GM TUBE TP SCH (10:10)
[2018-03-22] MEDS: rOPINIRole HCL 1 MG TABLET (FP) PO SCH (10:10)
[2018-03-22] MEDS: LIDOCAINE 5% TOPICAL PATCH TP SCH (10:10)
[2018-03-22] MEDS: APIXABAN 2.5 MG TABLET PO SCH (10:10)
[2018-03-22] MEDS: TIMOLOL 0.5% OPHTHALMIC SOL 5 ML BOTTLE OU SCH (10:11)
[2018-03-22] MEDS: ALLOPURINOL 100 MG TABLET (FP) PO SCH (10:11)
--- NOTE | 2018-03-22 11:02 | DS ---
Physical Exam: SUBJECTIVE: Patient seen and examined OBJECTIVE: Vital Signs Period Temp Pulse Resp BP Sys/Kraus Pulse Ox Last 24 Hr 97.6 F-98.2 F 65-130 16-20 107-113/33-50 94-95 PHYSICAL EXAM GENERAL: The patient is awake, alert, and fully oriented, in no acute distress. HEAD: Normal with no signs of trauma. EYES: PERRL, extraocular movements intact, sclera anicteric, conjunctiva clear. ENT: Ears normal, nares patent, oropharynx clear without exudates, moist mucous membranes. NECK: Trachea midline, full range of motion, supple. LUNGS: Breath sounds equal, clear to auscultation bilaterally, no wheezes, no crackles, no accessory muscle use. HEART: Regular rate and rhythm, S1, S2 without murmur, rub or gallop. ABDOMEN: Soft, nontender, nondistended, normoactive bowel sounds, no guarding, no rebound, no hepatosplenomegaly, no masses. EXTREMITIES: 2+ pulses, warm, well-perfused, no edema. NEUROLOGICAL: Cranial nerves II through XII grossly intact. Normal speech, gait not observed. PSYCH: Normal mood, normal affect. SKIN: Warm, dry, normal turgor, no rashes or lesions noted. LABS Laboratory Results - last 24 hr 03/21/18 03/21/18 03/21/18 12:10 12:10 12:10 WBC RBC Hgb Hct MCV MCH MCHC RDW Plt Count MPV Neutrophils % Lymphocytes % Monocytes % Eosinophils % Basophils % Sodium 137 138 Potassium 4.2 4.3 Chloride 103 104 Carbon Dioxide 27 24 Anion Gap 7 L 10 BUN 19 H 20 H Creatinine 1.2 1.2 Creat Clearance w eGFR 42.40 Random Glucose 119 H 116 H Calcium 9.0 9.1 Phosphorus 3.9 Magnesium 2.0 Total Bilirubin < 0.5 AST 18 ALT 16 Alkaline Phosphatase 129 H D Creatine Kinase 18 L Troponin I 0.03 Total Protein 6.7 Albumin 3.3 L 03/21/18 12:21 WBC 10.4 RBC 3.86 Hgb 10.7 Hct 32.0 L MCV 82.8 MCH 27.8 MCHC 33.5 RDW 21.4 H Plt Count 548 H MPV 7.8 Neutrophils % 68.8 Lymphocytes % 11.9 Monocytes % 17.2 H Eosinophils % 1.1 Basophils % 1.0 Sodium Potassium Chloride Carbon Dioxide Anion Gap BUN Creatinine Creat Clearance w eGFR Random Glucose Calcium Phosphorus Magnesium Total Bilirubin AST ALT Alkaline Phosphatase Creatine Kinase Troponin I Total Protein Albumin HOSPITAL COURSE: Date of Admission:03/20/18 Date of Discharge: 03/22/18 Minutes to complete discharge: 45 Discharge Summary Reason For Visit: ATRIAL FIB WITH RAPID VENTRICULAR RESPONSE Current Active Problems Acute on chronic diastolic (congestive) heart failure (Acute) Atrial fibrillation with RVR (Acute) Atrial flutter with rapid ventricular response (Acute) Pericardial effusion (Acute) Condition: Stable - Instructions - Home Medications Comprehensive Discharge Medication List: Ambulatory Orders Ropinirole HCl [Requip] 1 mg PO DAILY 04/10/17 Simvastatin 20 mg PO DAILY 04/10/17 Timolol 0.5% [Timoptic 0.5%] 1 drop OU BID 04/10/17 Apixaban [Eliquis] 2.5 mg PO BID #28 tablet 04/14/17 Allopurinol [Zyloprim -] 100 mg PO DAILY 09/25/17 Acetaminophen [Tylenol Arthritis] 650 mg PO DAILY 03/20/18 Diltiazem HCl [Diltiazem 24Hr ER] 60 mg PO BID 03/20/18 Docusate Sodium 100 mg PO DAILY 03/20/18 Hydralazine HCl 10 mg PO BID 03/20/18 Tramadol HCl 25 mg PO PRN PRN 03/20/18 - Discharge Referral Referred to [facility] No
[2018-03-22] MEDS ORDERED: PT OWN MED DRAWER 7, Y5N ONE (12:04)
[2018-03-22 13:14] VITALS: BP 130/62; PULSE 98; TEMP 98
[2018-03-22] MEDS ORDERED: dilTIAZem HCL 60 MG TABLET (FP) PO SCH (14:00)
--- NOTE | 2018-03-22 14:48 | PN ---
Progress Note, Physician History of Present Illness: The patient is an 87 year old white female with a history of HTN, HLD, CHF, Afib , Anemia who presents for evaluation of tachycardia. The patient is accompanied by family who assist in providing the history. They note that the patient's heart rate has gradually been elevating over the past week. The patient was evaluated for a routine follow up by her primary care provider 5 days ago and was noted to be normal at that time. The patient's family noted that the patient's heart rate was elevated to 125 today prompting her presentation to the ED for evaluation. The patient denies any symptoms currently and notes that she has been compliant with all her medications. She otherwise denies fevers, chills, SOB, chest pain, cough, nausea, vomiting, abdominal pain, or changes with urination or bowel movements. - Objective Vital Signs: Vital Signs Temperature 98.0 F 03/22/18 10:15 Pulse Rate 98 H 03/22/18 10:15 Respiratory Rate 18 03/22/18 10:15 Blood Pressure 130/62 03/22/18 10:15 O2 Sat by Pulse Oximetry (%) 98 03/22/18 10:00 Labs: CBC, BMP 03/21/18 12:21 03/21/18 12:10 INR, PTT INR 1.49 (0.82-1.09) H 03/20/18 11:52 Problem List - Problems (1) Atrial flutter with rapid ventricular response Assessment/Plan: On diltiazem (pt c/o GI upset on CD;, restart diltiazem SR 60 bid). On apixaban for anticoagulation. TSH 3.66 ECHO: normal LVEF; significant bilateral atrial enlargement; moderately severe TR, with moderate pulmonary HTN; moderate MR; small pericardial effusion, essentially unchanged from 03/2017 ECHO. Code(s): I48.92 - UNSPECIFIED ATRIAL FLUTTER (2) Chronic kidney disease Code(s): N18.9 - CHRONIC KIDNEY DISEASE, UNSPECIFIED Qualifiers: Chronic kidney disease stage: stage 2 (mild) Qualified Code(s): N18.2 - Chronic kidney disease, stage 2 (mild) (3) HTN (hypertension) Assessment/Plan: On diltiazem and hydralazine. Code(s): I10 - ESSENTIAL (PRIMARY) HYPERTENSION Qualifiers: Hypertension type: essential hypertension Qualified Code(s): I10 - Essential (primary) hypertension (4) Hypercholesterolemia Assessment/Plan: on statin; total cholesterol 96 mg/dL. Code(s): E78.00 - PURE HYPERCHOLESTEROLEMIA, UNSPECIFIED (5) Osteoarthritis Assessment/Plan: Pain management: lidocaine patch for right knee; BenGay ointment (Pt has considered possible knee replacement in the past, though the surgery and subsequent rehabilitation would be major challenges). Code(s): M19.90 - UNSPECIFIED OSTEOARTHRITIS, UNSPECIFIED SITE Qualifiers: Osteoarthritis location: knee Osteoarthritis type: unspecified Laterality : right Qualified Code(s): M17.11 - Unilateral primary osteoarthritis, right knee (6) Pericardial effusion Code(s): I31.3 - PERICARDIAL EFFUSION (NONINFLAMMATORY) (7) Acute on chronic diastolic (congestive) heart failure Code(s): I50.33 - ACUTE ON CHRONIC DIASTOLIC (CONGESTIVE) HEART FAILURE
== END 2018-03-22 13:55 | disposition home health service (06) ==
LOC: FER 11:04 → INTOOBSV 13:16 → FM/S 13:16 → UNDOADMOB 13:16 → FM/S 13:54
PROVIDERS: ADMIT Hospitalist; ATTEND Nurse Practitioner Family
PROC: 3E033GC Introduction of Other Therapeutic Substance into Peripheral Vein, Percutaneous Approach (ICD-10-PCS; principal; 2018-03-20)
PROC: 3E0337Z Introduction of Electrolytic and Water Balance Substance into Peripheral Vein, Percutaneous Approach (ICD-10-PCS; 2018-03-20)
DX: I48.91 Unspecified atrial fibrillation (principal); I48.92 Unspecified atrial flutter; I27.20 Pulmonary hypertension, unspecified; I31.3 Pericardial effusion (noninflammatory); I50.33 Acute on chronic diastolic (congestive) heart failure; I12.9 Hypertensive chronic kidney disease with stage 1 through stage 4 chronic kidney disease, or unspecified chronic kidney disease; N18.2 Chronic kidney disease, stage 2 (mild); M19.90 Unspecified osteoarthritis, unspecified site; G25.81 Restless legs syndrome; E78.5 Hyperlipidemia, unspecified; D64.9 Anemia, unspecified; Z88.1 Allergy status to other antibiotic agents; Z79.01 Long term (current) use of anticoagulants
CPT/HCPCS: 36415; 71045-TC-FY; 80048; 80053; 80061; 81003; 81015; 82550; 83735; 83880; 84100; 84439; 84443; 84484; 85025; 85610; 93005; 93306-TC; 96361; 96374; 99285-25; G0378

== ENCOUNTER 2018-07-19 07:32 | Day surgery (SDC) | payer OTHER, BC ==
[2018-07-19] MEDS ORDERED: IRON SUCROSE INJECTION 200 MG in SODIUM CHLORIDE 100 ML IVPB ONE (10:00)
[2018-07-19 16:45] VITALS: BP 114/67; PULSE 110; TEMP 97.6
== END 2018-07-19 10:35 | disposition home or self-care (01) ==
LOC: JONCNONCHE 07:32 → J7W 09:49 → JONCNONCHE 10:35
PROVIDERS: ATTEND Internal Medicine Hematology & Oncology
PROC: 3E033GC Introduction of Other Therapeutic Substance into Peripheral Vein, Percutaneous Approach (ICD-10-PCS; principal; 2018-07-19)
DX: D50.9 Iron deficiency anemia, unspecified (principal)
CPT/HCPCS: 96365; J1756

== ENCOUNTER 2018-07-24 07:46 | Day surgery (SDC) | payer OTHER, BC ==
[2018-07-24] MEDS ORDERED: IRON SUCROSE INJECTION 200 MG in SODIUM CHLORIDE 100 ML IVPB ONE (10:00)
[2018-07-24 16:07] VITALS: BP 116/62; PULSE 80; TEMP 97.9
== END 2018-07-24 11:40 | disposition home or self-care (01) ==
LOC: JONCNONCHE 07:46 → J7W 10:09 → JONCNONCHE 11:40
PROVIDERS: ATTEND Internal Medicine Hematology & Oncology
PROC: 3E033GC Introduction of Other Therapeutic Substance into Peripheral Vein, Percutaneous Approach (ICD-10-PCS; principal; 2018-07-24)
DX: D50.9 Iron deficiency anemia, unspecified (principal)
CPT/HCPCS: 96365; J1756

== ENCOUNTER 2018-07-31 07:29 | Day surgery (SDC) | payer OTHER, BC ==
[2018-07-31] MEDS ORDERED: IRON SUCROSE INJECTION 200 MG in SODIUM CHLORIDE 100 ML IVPB ONE (10:00)
[2018-07-31 12:19] VITALS: TEMP 96
[2018-07-31 12:26] VITALS: BP 138/60; PULSE 76
== END 2018-07-31 10:10 | disposition home or self-care (01) ==
LOC: JONCNONCHE 07:29 → J7W 09:20 → JONCNONCHE 10:10
PROVIDERS: ATTEND Internal Medicine Hematology & Oncology
PROC: 3E033GC Introduction of Other Therapeutic Substance into Peripheral Vein, Percutaneous Approach (ICD-10-PCS; principal; 2018-07-31)
DX: D50.9 Iron deficiency anemia, unspecified (principal)
CPT/HCPCS: 36415; 85240; 85246; 85270; 85291; 85610; 85613; 85730; 85732; 86146; 88300-TC; 96365; J1756

== ENCOUNTER 2018-08-10 16:59 | Inpatient (IN) | payer OTHER, BC ==
[2018-08-10] MEDS: ALBUTEROL SO4 2.5/IPRATROPIUM 0.5 INH SOL 3 ML VIAL.NEB. NEB SCH ×4 (17:10→19:30)
[2018-08-10] MEDS ORDERED: ALBUTEROL SO4 2.5/IPRATROPIUM 0.5 INH SOL 3 ML VIAL.NEB. NEB ONE ×2 (17:26→18:18)
--- NOTE | 2018-08-10 17:32 | PDOC ---
Attending Attestation - Resident Resident Name: Javier Prado - ED Attending Attestation I have performed the following: I have examined & evaluated the patient, The case was reviewed & discussed with the resident, I agree w/resident's findings & plan, Exceptions are as noted - HPI HPI: 08/10/18 19:37 The patient is a 88 year old female with a significant PMH of anemia, HTN, HLD, diastolic congestive heart failure, CKD stage III, atrial fibrillation (on Eliquis), restless leg syndrome who presents to the emergency department with progressively worsening shortness of breath and productive cough for the past week as per son at bedside. Patient states his cough is productive of green sputum with associated wheezing and shortness of breath. Son at bedside also states the patient has been more confused over the past few days. Patient is not on home O2. The patient endorses chronic lower extremity swelling, but denies chest pain, headache and dizziness. Denies fever, chills, nausea, vomit, diarrhea and constipation. Denies dysuria, frequency, urgency and hematuria. Allergies: NKA Past surgical history: Social history: No reported PCP: Dr. Salinas Pascula Shut Off Worker: Dr. Zavala - Physicial Exam PE: 08/10/18 19:37 GENERAL: The patient is awake, alert, and fully oriented, mild resp distress HEAD: Normocephalic, atraumatic. EYES: extraocular movements intact, sclera anicteric, conjunctiva clear. ENT: Normal voice, Moist mucous membranes. NECK: Normal range of motion, supple LUNGS: rhonchi b/l with faint rales at bases HEART: irregularly irregular ABDOMEN: Soft, nontender, No guarding, no rebound. No CVA tenderness EXTREMITIES: b/'l LE edema, neg calf tenderness, neg homans NEUROLOGICAL: No facial assymetry, Normal speech, PSYCH: Normal mood, normal affect. SKIN: Warm, Dry, normal turgor, - Critical Care Time Total Critical Care Time: 35 Critical Care Statement: The care of this patient involved high complexity decision making to prevent further life threatening deterioration of the patient 's condition and/or to evaluate & treat vital organ system(s) failure or risk of failure. - Medical Decision Making 08/10/18 19:05 will r/o pna, chf, as cause of her sob will give her dose of diltiazem for rate control Heart Score/ECG Review - ECG Impressions Comment:: 08/10/18 22:27 Twelve-lead EKG was performed and reviewed by me. irergularly irregular rate of [address] wave changes
--- NOTE | 2018-08-10 18:02 | PDOC ---
History of Present Illness - General Chief Complaint: Respiratory Distress Stated Complaint: SOB Time Seen by Provider: 08/10/18 17:24 - History of Present Illness Initial Comments: 08/10/18 17:53 87 yo F with a h/o Anemia, HTN, HLD, OA, Diastolic Congestive heart failure, CKD stage III, Atrial fibrillation (Eliquis), restless leg syndrome who p/w SOB. Per patient son at bedside and primary caregiver, pt. has been experiencing cough, with green sputum production x 1 week, with progressive wheezing, and SOB. Son also reports 2 weeks of worsening mental status and night time confusion. + chronic leg swelling, and orthopnea. No home O2 requirements. Patient denies N/V, F/C, Palpitations, CP, SOB, urinary complaints, abdominal pain, diarrhea, constipation, lightheadedness, weakness, sensory changes. PMHx: as noted above ROS: as noted SHx: Denies tobacco use, IVDA, Etoh Allergies: NKDA Analysis Engineer: Gunner Zavala PMDenny Past History - Past Medical History Allergies/Adverse Reactions: Allergies Allergy/AdvReac Type Severity Reaction Status Date / Time amoxicillin Allergy Verified 08/10/18 17:26 Home Medications: Ambulatory Orders Ropinirole HCl [Requip] 1 mg PO DAILY 04/10/17 Simvastatin 20 mg PO DAILY 04/10/17 Timolol 0.5% [Timoptic 0.5%] 1 drop OU BID 04/10/17 Apixaban [Eliquis] 2.5 mg PO BID #28 tablet 04/14/17 Allopurinol [Zyloprim -] 100 mg PO DAILY 09/25/17 Hydralazine HCl 10 mg PO BID 03/20/18 Allopurinol 100 mg PO DAILY 08/10/18 Diltiazem [Cardizem -] 120 mg PO BID 08/10/18 Docusate Sodium [Colace] 100 mg PO DAILY 08/10/18 Ropinirole HCl [Requip] 1 mg PO DAILY 08/10/18 Anemia: Yes Asthma: No Cancer: No Cardiac Disorders: Yes (ATRIAL FIBRILLATION) CVA: No COPD: No CHF: Yes Dementia: No Diabetes: No GI Disorders: Yes (DYSPHAGIA) Disorders: No HTN: Yes Hypercholesterolemia: Yes Liver Disease: No Seizures: No Thyroid Disease: No - Surgical History Abdominal Surgery: No Appendectomy: No Cardiac Surgery: No Cholecystectomy: No Lung Surgery: No Orthopedic Surgery: No - Suicide/Smoking/Psychosocial Hx Smoking History: Never smoked Have you smoked in the past 12 months: No Number of Cigarettes Smoked Daily: 0 Information on smoking cessation initiated: No Hx Alcohol Use: No Drug/Substance Use Hx: No Substance Use Type: None Hx Substance Use Treatment: No Review of Systems - Review of Systems Comments:: 08/10/18 18:09 GENERAL/CONSTITUTIONAL: No fever or chills. No weakness. HEAD, EYES, EARS, NOSE AND THROAT: No change in vision. No ear pain or discharge. No sore throat. CARDIOVASCULAR: + SOB.No chest pain . RESPIRATORY: +cough, wheezing. No hemoptysis. GASTROINTESTINAL: No nausea, vomiting, diarrhea or constipation. GENITOURINARY: No dysuria, frequency, or change in urination. MUSCULOSKELETAL: No joint or muscle swelling or pain. No neck or back pain. SKIN: No rash NEUROLOGIC: No headache, vertigo, loss of consciousness, or change in strength/ sensation. ENDOCRINE: No increased thirst. No abnormal weight change HEMATOLOGIC/LYMPHATIC: No anemia, easy bleeding, or history of blood clots. ALLERGIC/IMMUNOLOGIC: No hives or skin allergy. *Physical Exam - Vital Signs Last Vital Signs Temp Pulse Resp BP Pulse Ox 97.3 F L 123 H 24 H 177/92 H 97 08/10/18 17:22 08/10/18 17:22 08/10/18 17:22 08/10/18 17:22 08/10/18 17:22 - Physical Exam Comments: 08/10/18 18:29 GENERAL: Awake, alert, and fully oriented, in no acute distress HEAD: No signs of trauma, normocephalic, atraumatic EYES: PERRLA, EOMI, sclera anicteric, conjunctiva clear ENT: Hearing grossly normal, nares patent, oropharynx clear without exudates. Moist mucosa NECK: Normal ROM, supple, no lymphadenopathy, JVD, or masses LUNGS: Diminshed breath sounds at BL LL bases, with crackles. Diffuse exp rhonci. HEART: Regular rate and rhythm, normal S1 and S2, no murmurs, rubs or gallops, peripheral pulses normal and equal bilaterally. ABDOMEN: Soft, nontender, normoactive bowel sounds. No guarding, no rebound. No masses EXTREMITIES : + 2 + pitting edema BL. Normal inspection, Normal range of motion , no edema. No clubbing or cyanosis. SKIN: Warm, Dry, normal turgor, no rashes or lesions noted Heart Score/ECG Review - History History: Slightly suspicious - Electrocardiogram EKG: Non specific repolarization disturbance - Age Age: >/= 65 - Risk Factors Risk Factors Heart Score: Yes Hx Hypercholesterolemia, Yes Hx Hypertension, Yes Positive family hx of cardiac disease Based on the list above the patient has:: >/=3 risk factors or Hx atherosclerotic disease - Troponin Troponin: </= normal limit - Score Heart Score - Total: 5 ED Treatment Course - LABORATORY CBC & Chemistry Diagram: 08/10/18 20:50 08/10/18 21:40 Medical Decision Making - Medical Decision Making 08/10/18 18:05 87 yo F with a h/o HTN, HLD, OA, Diastolic Congestive heart failure, CKD stage III, Atrial fibrillation (Eliquis), restless leg syndrome who p/w SOB. BP 177/92 , P 123, RR 24, Temp 97.3. ACS/DE r/o. R/o PNA. Possible PNA vs. CHF, asthma, COPD. Will assess for cardiac dysarrythmias, electrolyte abnml, metabolic and toxic derangements, acid-base disturbances, and infection. ED Course: CBC, CMP, VBG, Cardiac Pr. LA, BNP, EKG, CXR, BCx, UCx Duonebs 08/10/18 21:39 WBC :11.1 08/10/18 22:30 BNP [id number] CXR: Enlarged cardiac silhouette, with increased vascular markings. Similiar to prior CXR ( 02/2018) Plan to admit to [facility] 08/10/18 23:15 EKG: A-fib with RvR, Lateral AVL, V5 TWI. Flattened T Wave Lead I. Absent acute JESSICA, STD. Similar to prior EKG (03/16). Elevated Heart Score5 08/10/18 23:[address] Danita Maravilla. *DC/Admit/Observation/Transfer Diagnosis at time of Disposition: Acute on chronic diastolic (congestive) heart failure, Shortness of breath, Elevated brain natriuretic peptide (BNP) level, Hypoxia - Discharge Dispostion Condition at time of disposition: Stable Decision to Admit order: Yes - Referrals Referrals: Mami Ku MD [Primary Care Provider] - - Patient Instructions - Post Discharge Activity
[2018-08-10] MEDS ORDERED: ACETAMINOPHEN 1000 MG/100 ML VIAL (NON FORMULARY) IVPB ONE (18:33)
[2018-08-10] MEDS ORDERED: dilTIAZem HCL 60 MG TABLET (FP) PO ONE ×2 (19:34→19:35)
[2018-08-10] MEDS ORDERED: dilTIAZem HCL 60 MG TABLET (FP) ONE (20:10)
[2018-08-10 21:20] LABS: BASO % 0.3 % (0-2.0); HEMATOCRIT 33.1 % (32.4-45.2); HEMOGLOBIN 10.6 GM/dL (10.7-15.3); LYMPH % 5.1 % (8-40); MCH 27.8 pg (25.7-33.7); MEAN CELL VOLUME 86.8 fl (80-96); MEAN PLT VOLUME 7.6 fl (7.5-11.1); MONO % 10.2 % (3.8-10.2); NEUT % 84.4 % (42.8-82.8); PLATELET COUNT 337 K/MM3 (134-434); RBC 3.81 M/mm3 (3.60-5.2); WHITE BLOOD COUNT 11.1 K/mm3 (4.0-10.0)
[2018-08-10] MEDS ORDERED: ACETAMINOPHEN INJECTION 100 ML IVPB ONE (21:44)
[2018-08-10 22:06] LABS: INR 1.41 (0.83-1.09); PROTHROMBIN TIME (PATIENT) 16.7 SEC (9.7-13.0)
[2018-08-10 22:22] LABS: ALBUMIN 3.7 g/dl (3.4-5.0); ALK PHOS 114 U/L (45-117); ANION GAP 8 MMOL/L (8-16); BLOOD UREA NITROGEN 13 mg/dL (7-18); CALCIUM 9.5 mg/dL (8.5-10.1); CHLORIDE 93 mmol/L (98-107); CO2 27 mmol/L (21-32); CREATININE 0.9 mg/dL (0.55-1.3); GLUCOSE,RANDOM 117 mg/dL (74-106); POTASSIUM 3.5 mmol/L (3.5-5.1); SGOT/AST 19 U/L (15-37); SGPT/ALT 24 U/L (13-61); SODIUM 128 mmol/L (136-145); TOT PROT 7.3 g/dl (6.4-8.2)
[2018-08-10 22:24] LABS: N-TERMINAL BNP 13617.5 pg/ml (5-450)
[2018-08-10 22:27] LABS: URINE APPEARANCE SLCLOUDY; URINE BILIRUBIN NEGATIVE (<2.0 mg/dL); URINE COLOR YELLOW; URINE GLUCOSE (UA) 1+ (NEGATIVE); URINE KETONE TRACE (NEGATIVE); URINE LEUK ESTERASE NEGATIVE (NEGATIVE); URINE NITRITE NEGATIVE (NEGATIVE); URINE PROTEIN 3+ (NEGATIVE); URINE UROBILINOGEN NEGATIVE mg/dL (0.2-1.0)
[2018-08-10 22:37] LABS: EPI CELLS RARE /HPF (FEW); URINE HYALINE CAST 13 /lpf; URINE MUCUS RARE
--- NOTE | 2018-08-10 22:49 | HP ---
CHIEF COMPLAINT: worsening Cough, lethargy, worsening SOB and hypoxia x1 day PCP: Dr Connie Pascual HISTORY OF PRESENT ILLNESS: Pt is a 88 yo F with a signif PMHx of iron deficiency anemia, HTN, HLD, DCHF, Dysphagia,Oa, AF (on Eliquis), restless leg syndrome who presenting from home for acute hypoxia sats 88%, with progressively worsening SOB, and productive cough for the past week as per son at bedside. Patient states his cough is productive of green sputum with associated wheezing and shortness of breath.Pt was reported to have URTI (nasal congestion and sore throat) over a week ago from which she did not fully recover. Pt has had loss of appetite, increased fatiguability, worsening SOB on exertion, orthopnea, PND, worsening leg edema and weight gain. Son at bedside also states the patient has been more confused over the past few days. Patient is not on home O2. Pt was recently discharged 07/24 after blood or iron transfusion (not clear). After which she sarted being wheeled in a wheel chair rather than walk on her own for increased fatigue. Pt was initially placed on nonrebreather then transitioned to NC oxygen at 2 liters in ED. ER course was notable for: (1) tachycardia-123, tachypnea-24, BP 177/92 (2) LA-2.4, WBC-11.1, Na-128, BNP-136,175 (3) EKG- 118HR, irreg, ireg, LAD, non specific T wave abnormality (seen from before) Recent Travel: PAST MEDICAL HISTORY: As in HPI PAST SURGICAL HISTORY: Social History: Smoking:Never Alcohol:Denies Drugs: Denies Family History: Allergies amoxicillin Allergy (Verified 08/10/18 17:26) HOME MEDICATIONS: Ambulatory Orders Ropinirole HCl [Requip] 1 mg PO DAILY 04/10/17 Simvastatin 20 mg PO DAILY 04/10/17 Timolol 0.5% [Timoptic 0.5%] 1 drop OU BID 04/10/17 Apixaban [Eliquis] 2.5 mg PO BID #28 tablet 04/14/17 Allopurinol [Zyloprim -] 100 mg PO DAILY 09/25/17 Hydralazine HCl 10 mg PO BID 03/20/18 Allopurinol 100 mg PO DAILY 08/10/18 Diltiazem [Cardizem -] 120 mg PO BID 08/10/18 Docusate Sodium [Colace] 100 mg PO DAILY 08/10/18 Ropinirole HCl [Requip] 1 mg PO DAILY 08/10/18 REVIEW OF SYSTEMS CONSTITUTIONAL: Absent: fever, chills, diaphoresis, generalized weakness+, malaise, loss of appetite+, weight change+ HEENT: Absent: rhinorrhea, nasal congestion, throat pain, throat swelling, difficulty swallowing, mouth swelling, ear pain, eye pain, visual changes CARDIOVASCULAR: Absent: chest pain, syncope, palpitations, irregular heart rate, lightheadedness , peripheral edema RESPIRATORY: Absent: cough, shortness of breath, dyspnea with exertion, orthopnea, wheezing, stridor, hemoptysis GASTROINTESTINAL: Absent: abdominal pain, abdominal distension, nausea, vomiting, diarrhea, constipation, melena, hematochezia GENITOURINARY: Absent: dysuria, frequency, urgency, hesitancy, hematuria, flank pain, genital pain MUSCULOSKELETAL: Absent: myalgia, arthralgia, joint swelling, back pain, neck pain SKIN: Absent: rash, itching, pallor HEMATOLOGIC/IMMUNOLOGIC: Absent: easy bleeding, easy bruising, lymphadenopathy, frequent infections ENDOCRINE: Absent: unexplained weight gain, unexplained weight loss, heat intolerance, cold intolerance NEUROLOGIC: Absent: headache, focal weakness or paresthesias, dizziness, unsteady gait, seizure, mental status changes, bladder or bowel incontinence PSYCHIATRIC: Absent: anxiety, depression, suicidal or homicidal ideation, hallucinations. PHYSICAL EXAMINATION Vital Signs - 24 hr 08/10/18 08/10/18 17:22 21:39 Temperature 97.3 F L Pulse Rate 123 H Pulse Rate [ 130 H Apical] Respiratory 24 H 29 H Rate Blood Pressure 177/92 H Blood Pressure 115/84 [Right Arm] O2 Sat by Pulse 97 Oximetry (%) GENERAL: Awake, alert, and fully oriented, in no distress.Sating on NC-2l at 97% HEAD: Normal with no signs of trauma. EYES: Pupils equal, round and reactive to light, extraocular movements intact, EARS, NOSE, THROAT: reduced hearing, oropharynx hyperemia NECK: supple, JVD+. LUNGS: Dullness to percussion at lung bases bilaterally. Basal crackles bilaterally. Scattered wheezes, and no crackles. HEART: Regular rate and rhythm, normal S1 and S2 ABDOMEN: Soft, nontender, not distended, normoactive bowel sounds, no guarding, no rebound, no masses. MUSCULOSKELETAL: Normal range of motion at all joints. No bony deformities or tenderness. No CVA tenderness. LOWER EXTREMITIES: 2+ pulses, warm, bilateral tender lower extremities, bilateral 2+pitting peripheral edema up to thigh. NEUROLOGICAL: Symetric face and tongue, no slurred speech. Able to move all limbs. Cranial nerves II-XII intact. Normal speech. gait not observed. CBC, BMP 08/10/18 20:50 08/10/18 21:40 Laboratory Results - last 24 hr 08/10/18 08/10/18 08/10/18 20:00 20:00 20:00 WBC RBC Hgb Hct MCV MCH MCHC RDW Plt Count MPV Absolute Neuts (auto) Neutrophils % Lymphocytes % Monocytes % Eosinophils % Basophils % Nucleated RBC % PT with INR Cancelled INR Cancelled Sodium Potassium Chloride Carbon Dioxide Anion Gap BUN Creatinine Creat Clearance w eGFR Random Glucose Lactic Acid 2.4 H* Calcium Total Bilirubin AST ALT Alkaline Phosphatase Creatine Kinase Cancelled Troponin I Cancelled B-Natriuretic Peptide Cancelled Total Protein Albumin Urine Color Urine Appearance Urine pH Ur Specific Grant Urine Protein Urine Glucose (UA) Urine Ketones Urine Blood Urine Nitrite Urine Bilirubin Urine Urobilinogen Ur Leukocyte Esterase Urine WBC (Auto) Urine RBC (Auto) Ur Epithelial Cells Hyaline Casts Urine Mucus 08/10/18 08/10/18 08/10/18 20:50 20:50 21:40 WBC 11.1 H RBC 3.81 Hgb 10.6 L Hct 33.1 D MCV 86.8 MCH 27.8 MCHC 32.0 RDW 21.0 H Plt Count 337 D MPV 7.6 Absolute Neuts (auto) 9.3 H Neutrophils % 84.4 H D Lymphocytes % 5.1 L D Monocytes % 10.2 Eosinophils % 0.0 D Basophils % 0.3 Nucleated RBC % 0 PT with INR INR Sodium Cancelled Potassium Cancelled Chloride Cancelled Carbon Dioxide Cancelled Anion Gap Cancelled BUN Cancelled Creatinine Cancelled Creat Clearance w eGFR Cancelled Random Glucose Cancelled Lactic Acid Calcium Cancelled Total Bilirubin Cancelled AST Cancelled ALT Cancelled Alkaline Phosphatase Cancelled Creatine Kinase 39 Troponin I 0.04 B-Natriuretic Peptide 41630.5 H Total Protein Cancelled Albumin Cancelled Urine Color Urine Appearance Urine pH Ur Specific Grant Urine Protein Urine Glucose (UA) Urine Ketones Urine Blood Urine Nitrite Urine Bilirubin Urine Urobilinogen Ur Leukocyte Esterase Urine WBC (Auto) Urine RBC (Auto) Ur Epithelial Cells Hyaline Casts Urine Mucus 08/10/18 08/10/18 08/10/18 21:40 21:40 21:50 WBC RBC Hgb Hct MCV MCH MCHC RDW Plt Count MPV Absolute Neuts (auto) Neutrophils % Lymphocytes % Monocytes % Eosinophils % Basophils % Nucleated RBC % PT with INR 16.70 H INR 1.41 H Sodium 128 L Potassium 3.5 Chloride 93 L Carbon Dioxide 27 Anion Gap 8 BUN 13 Creatinine 0.9 Creat Clearance w eGFR 58.95 Random Glucose 117 H Lactic Acid Calcium 9.5 Total Bilirubin 1.0 AST 19 ALT 24 Alkaline Phosphatase 114 Creatine Kinase Troponin I B-Natriuretic Peptide Total Protein 7.3 Albumin 3.7 Urine Color Yellow Urine Appearance Slcloudy Urine pH 5.0 D Ur Specific Grant 1.017 Urine Protein 3+ H D Urine Glucose (UA) 1+ H Urine Ketones Trace H Urine Blood Negative Urine Nitrite Negative Urine Bilirubin Negative Urine Urobilinogen Negative Ur Leukocyte Esterase Negative Urine WBC (Auto) 3 Urine RBC (Auto) 2 Ur Epithelial Cells Rare Hyaline Casts 13 Urine Mucus Rare ASSESSMENT/PLAN: Pt is a 88 yo F with a signif PMHx of anemia, HTN, HLD, DCHF, AF (on Eliquis), restless leg syndrome who presenting from home for acute hypoxia sats 88%, with progressively worsening SOB, and productive cough for the past week as per son at bedside. Acute hypoxic respiratory failure Likely due to CHF exacerbation precipitated by URTI Worsening PND, orthopnea, Bilateral pedal edema, basal crackles, wheeze, hypoxia iv lasix 40mg given Monitor urine output Daily weights Fluid restriction <1L/day oxygen to maintain sats >90% Flu swab-ve Urinary Ag for legionella ECHO Repeat EKG Cardio consult- Dr Zavala Cardiac monitoring RSV swab--ve PSI-89 points- Class iii CXR- congestive chganges, with likely L L infiltrate Sepsis likely secondary to CAP Atypical PNA tachycardia-123, tachypnea-24, LA-2.4, WBC-11.1 Lactic acid Pt lives at home Could be superimposed bacterial PNA following viral URTI or viral PNA Continue Levoflox 750mg daily (amox allergy) Flu swab Urinary Ag for legionella Trend Lactic acid- 2.4>>1.2 Hyponatremia Could be hypervolemic hyponatremia due to volume overload R/o legionella disease- urinary ag ordered TSH Leg edema Could be in setting of likely fluid overload R/O DVT with reduced recent mobility Bilateral Duplex anemia Stable H&H at this time No evidence of bleed HTN Hydralazine Diltiazem HLD, simvastatin AF (on Eliquis), Cont rate control with diltiazem FEN No fluids Monitor lytes Sodium PPx Eliquis Dispo: Tele in pt Visit type - Emergency Visit Emergency Visit: Yes ED Registration Date: 08/10/18 Care time: The patient presented to the Emergency Department on the above date and was hospitalized for further evaluation of their emergent condition. - New Patient This patient is new to me today: Yes Date on this admission: 08/11/18 - Critical Care Critical Care patient: No
[2018-08-10 22:51] LABS: ANISOCYTOSIS 2+; MACROCYTOSIS 2+
[2018-08-10 22:52] LABS: PLATELET ESTIMATE ADEQUATE
--- NOTE | 2018-08-10 23:26 | PN ---
Teaching Attending Note Name of Resident: Margareth De Souza ATTENDING PHYSICIAN STATEMENT I saw and evaluated the patient. I reviewed the resident's note and discussed the case with the resident. I agree with the resident's findings and plan as documented. SUBJECTIVE: Patient is a 88 year old woman with a significant PMH of anemia, HTN, HLD, pericardial effusion, diastolic congestive heart failure, atrial fibrillation ( on Eliquis), and restless leg syndrome who presents to the ER with progressively worsening shortness of breath and productive cough for the past week as per son. Patient states his cough is productive of green sputum with associated wheezing and shortness of breath. Son at bedside also states the patient has been more confused over the past few days. Patient is not on home O2. The patient has chronic lower extremity swelling, but denies chest pain, headache and dizziness. She denies fever, chills, nausea, vomiting or diarrhea. OBJECTIVE: Alert Vital Signs Period Temp Pulse Resp BP Sys/Kraus Pulse Ox Last 24 Hr 97.3 F 123-130 24-29 115-177/84-92 97 HEENT: No Jaundice, eye redness or discharge, PERRLA, EOMI. Normocephalic, atraumatic. External ears are normal and hearing is grossly intact. No nasal discharge. Neck: Supple, nontender. No palpable adenopathy or thyromegaly. No JVD Chest: Good effort. Bibasilar rales. Clear to percussion. Heart: Irregular. No S3, rub or murmur. Abdomen: Not distended, soft, nontender and no HSM. No rebound or guarding. Normoactive bowel sounds. Ext: Peripheral pulses intact. Leg edema. Skin: Warm and dry. No petechiae, rash or ecchymosis. Neuro: Alert. Oriented x3. CN 2-12 grossly intact. Sensation grossly intact in all four extremities and DTR are symmetric. Home Medications Medication Instructions Recorded Ropinirole HCl [Requip] 1 mg PO DAILY 04/10/17 Simvastatin 20 mg PO DAILY 04/10/17 Timolol 0.5% [Timoptic 0.5%] 1 drop OU BID 04/10/17 Apixaban [Eliquis] 2.5 mg PO BID #28 tablet 04/14/17 Allopurinol [Zyloprim -] 100 mg PO DAILY 09/25/17 Acetaminophen [Tylenol Arthritis] 650 mg PO DAILY 03/20/18 Docusate Sodium 100 mg PO DAILY 03/20/18 Hydralazine HCl 10 mg PO BID 03/20/18 Tramadol HCl 25 mg PO PRN PRN 03/20/18 Diltiazem [Cardizem -] 60 mg PO TID #120 tablet 03/22/18 Lidocaine 5% Patch [Lidoderm -] 1 patch TP DAILY #30 patch 03/22/18 Lidocaine Patch Removal [Lidoderm 1 each MC DAILY@2200 each 03/22/18 Patch Removal] Methyl Salicylate/Menthol Oint 1 applic TP BID applic 03/22/18 [Analgesic Lawrence -] Abnormal Lab Results 08/10/18 08/10/18 08/10/18 20:00 20:50 21:40 WBC 11.1 H Hgb 10.6 L RDW 21.0 H Absolute Neuts (auto) 9.3 H Neutrophils % 84.4 H D Lymphocytes % 5.1 L D PT with INR INR Sodium Chloride Random Glucose Lactic Acid 2.4 H* B-Natriuretic Peptide 42846.5 H Urine Protein Urine Glucose (UA) Urine Ketones 08/10/18 08/10/18 08/10/18 21:40 21:40 21:50 WBC Hgb RDW Absolute Neuts (auto) Neutrophils % Lymphocytes % PT with INR 16.70 H INR 1.41 H Sodium 128 L Chloride 93 L Random Glucose 117 H Lactic Acid B-Natriuretic Peptide Urine Protein 3+ H D Urine Glucose (UA) 1+ H Urine Ketones Trace H ASSESSMENT AND PLAN: 1. CHF exacerbation - Likely precipitated by recent URI/chest infection. CXR shows cardiomegaly, pulmonary congestion and obscured left costophrenic angle. Will treat with IV lasix, get daily weights, restrict dietary salt intake, admit to telemetry, get ECHO and Leg doppler. Get urine legionella antigen, trend lactic acid and treat with IV levofloxacin. For Afib we will continue cardiazem and eliquis and strive for a slower rate to improve LV function. 2. Hyponatremia - Likely due to CHF. Get TFT. Restrict free water intake. 3. DVT prophylaxis - On Eliquis 4. Advance directives - Full code
[2018-08-10] MEDS ORDERED: FUROSEMIDE 40 MG/4 ML INJECTABLE VIAL IVPUSH ONE (23:36)
[2018-08-11] MEDS ORDERED: FUROSEMIDE 40 MG/4 ML INJECTABLE VIAL ONE
[2018-08-11 01:25] LABS: VENOUS PC02 44.5 mmHg (38-52); VENOUS PH 7.4 (7.32-7.42); VENOUS PO2 40.9 mmHg (28-48)
[2018-08-11] MEDS: APIXABAN 2.5 MG TABLET PO SCH ×3 (02:29→21:04)
--- NOTE | 2018-08-11 09:00 | CON.CARD ---
Consult Consult Specialty:: Cardiology for Sally Referred by:: Dr. Quiroga Reason for Consultation:: CHF - History of Present Illness Chief Complaint: Poor historian: does not really know why she was admitted. Says her son brought her here. History of Present Illness: 87 yo F with a h/o Anemia, HTN, HLD, OA, Diastolic Congestive heart failure, CKD stage III, Atrial fibrillation (Eliquis), restless leg syndrome who p/w SOB. Per patient son at bedside and primary caregiver, pt. has been experiencing cough, with green sputum production x 1 week, with progressive wheezing, and SOB. Son also reports 2 weeks of worsening mental status and night time confusion. + chronic leg swelling, and orthopnea. No home O2 requirements. Patient denies N/V, F/C, Palpitations, CP, SOB, urinary complaints, abdominal pain, diarrhea, constipation, lightheadedness, weakness, sensory changes. PMHx: as noted above ROS: as noted SHx: Denies tobacco use, IVDA, Etoh Allergies: NKDA - History Source History Provided By: Patient, Medical Record Limitations to Obtaining History: Clinical Condition - Past Medical History Cardio/Vascular: Yes: AFIB (New onset), CHF (diastolic CHF per records), HTN, Hyperlipdemia ...: No Musculoskeletal: Yes: Osteoarthritis Additional Medical History: Glaucoma - Past Surgical History Past Surgical History: Yes: Hysterectomy - Alcohol/Substance Use Hx Alcohol Use: No History of Substance Use: reports: None - Smoking History Smoking history: Never smoked Have you smoked in the past 12 months: No Aproximately how many cigarettes per day: 0 Home Medications - Allergies Allergies/Adverse Reactions: Allergies Allergy/AdvReac Type Severity Reaction Status Date / Time amoxicillin Allergy Verified 08/10/18 17:26 - Home Medications Home Medications: Ambulatory Orders Ropinirole HCl [Requip] 1 mg PO DAILY 04/10/17 Simvastatin 20 mg PO DAILY 04/10/17 Timolol 0.5% [Timoptic 0.5%] 1 drop OU BID 04/10/17 Apixaban [Eliquis] 2.5 mg PO BID #28 tablet 04/14/17 Allopurinol [Zyloprim -] 100 mg PO DAILY 09/25/17 Hydralazine HCl 10 mg PO BID 03/20/18 Allopurinol 100 mg PO DAILY 08/10/18 Diltiazem [Cardizem -] 120 mg PO BID 08/10/18 Docusate Sodium [Colace] 100 mg PO DAILY 08/10/18 Ropinirole HCl [Requip] 1 mg PO DAILY 08/10/18 Review of Systems Findings/Remarks: see HPI - Review of Systems Cardiovascular: reports: Shortness of Breath Respiratory: reports: Cough, SOB Gastrointestinal: denies: No Symptoms, Abdominal Pain, Bloating, Constipation, Diarrhea, Dysphagia, Indigestion, Melena, Nausea, Rectal Bleeding, Vomiting, Vomiting Blood, Other Genitourinary: denies: No Symptoms, Burning, Discharge, Dysuria, Flank Pain, Frequency, Hematuria, Incontinence, Lesions, Menses, Pain, Testicular Mass, Testicular Pain, Testicular Swelling, Urgency, Vaginal Bleeding, Other Breasts: denies: No Symptoms Reported, See HPI, Breast Implants, Discharge from Nipple, Lumps, Pain, Skin Changes, Other Musculoskeletal: denies: No Symptoms, Back Pain, Crepitus, Decreased ROM, Extremity Pain, Joint Pain, Joint Swelling, Muscle Pain, Muscle Cramps, Muscle Weakness, Other - Risk Factors Known Risk Factors: Yes: Hypertension, Physical Inactivity Vital Signs: Vital Signs Temperature 97.9 F 08/11/18 05:59 Pulse Rate 121 H 08/11/18 05:59 Respiratory Rate 22 H 08/11/18 05:59 Blood Pressure 157/76 08/11/18 05:59 O2 Sat by Pulse Oximetry (%) 97 08/11/18 06:01 Constitutional: Yes: Calm Neck: Yes: Other (Mildly elevated JVP) Respiratory: Yes: Rales (rales 1/3 up bilaterally), Rhonchi Gastrointestinal: Yes: Soft JVD: Yes Carotid Bruit: No Heart Sounds: Yes: S1, S2 (irregularly irregular) Edema: Yes Edema: LLE: 2+, RLE: 2+ - Other Data Labs, Other Data: INR, PTT INR 1.41 (0.83-1.09) H 08/10/18 21:40 Troponin, BNP 08/10/18 08/10/18 20:00 21:40 Troponin I Cancelled 0.04 B-Natriuretic Peptide Cancelled 47063.5 H Troponin, BNP 08/10/18 08/10/18 20:00 21:40 Troponin I Cancelled 0.04 B-Natriuretic Peptide Cancelled 55432.5 H Laboratory Tests 08/10/18 08/10/18 08/10/18 20:50 21:40 21:40 WBC 11.1 H Plt Count 337 D Sodium 128 L Potassium 3.5 BUN 13 Creatinine 0.9 Creat Clearance w eGFR 58.95 Random Glucose 117 H Lactic Acid AST 19 ALT 24 Alkaline Phosphatase 114 Troponin I 0.04 08/11/18 01:05 WBC Plt Count Sodium Potassium BUN Creatinine Creat Clearance w eGFR Random Glucose Lactic Acid 1.2 AST ALT Alkaline Phosphatase Troponin I [id number], LAFB, NSST changes. Echo: Other (Echo from February cannot be currently accessed in EMR- have requested it be faxed from Cardiology; will review it in [employer] viewing station later) Imaging - Results Chest X-ray: Image Reviewed (cardiomegaly, increased PVC possible LLL infiltrate ) EKG: Image Reviewed Problem List - Problems (1) Acute on chronic diastolic (congestive) heart failure Code(s): I50.33 - ACUTE ON CHRONIC DIASTOLIC (CONGESTIVE) HEART FAILURE (2) Elevated brain natriuretic peptide (BNP) level Code(s): R79.89 - OTHER SPECIFIED ABNORMAL FINDINGS OF BLOOD CHEMISTRY (3) Shortness of breath Code(s): R06.02 - SHORTNESS OF BREATH (4) Atrial fibrillation with RVR Code(s): I48.91 - UNSPECIFIED ATRIAL FIBRILLATION (5) Pneumonia Code(s): J18.9 - PNEUMONIA, UNSPECIFIED ORGANISM Qualifiers: Pneumonia type: due to unspecified organism Laterality: left Assessment/Plan IMP: Acute on chronic diastolic CHF probably precipitated by AF w/ RVR CKD Possible PNA REC: 1. Review of telemetry reveals uncontrolled AF w/ RVR- w/ heart rates 130s-140s. Optimization of rate control imperative in diastolic CHF. Continue Cardizem. Begin Metoprolol tartrate 12.5 mg BID, titrate as heart rate allows. If tolerates, convert to Toprol XL. Continue Eliquis. 2. Continue IV Lasix for sx relief and control of volume overload. 3. Goal BP < 140/90 (CKD): hold hydralazine for now as beta rei being introduced. Attempt to initiate in next 24 hours if renal fxn and BP stable. 4. Continue telemetry while being rate controlled and while receiving IV Lasix 5. Daily weights and low sodium diet. 6. Will review February 2018 echo and determine if needs to be repeated pending clinical response to above and cardiac enzyme trend.
[2018-08-11 09:18] LABS: ALBUMIN 3.2 g/dl (3.4-5.0); ALK PHOS 102 U/L (45-117); ANION GAP 9 MMOL/L (8-16); BILIRUBIN,TOTAL 1.3 mg/dL (0.2-1); BLOOD UREA NITROGEN 12 mg/dL (7-18); CALCIUM 9.1 mg/dL (8.5-10.1); CHLORIDE 96 mmol/L (98-107); CO2 29 mmol/L (21-32); CREATININE 0.8 mg/dL (0.55-1.3); GLUCOSE,RANDOM 93 mg/dL (74-106); MAGNESIUM 1.8 mg/dL (1.8-2.4); POTASSIUM 3.6 mmol/L (3.5-5.1); SGOT/AST 25 U/L (15-37); SGPT/ALT 22 U/L (13-61); SODIUM 133 mmol/L (136-145); TOT PROT 6.5 g/dl (6.4-8.2)
[2018-08-11] MEDS ORDERED: PT OWN MED DRAWER 7, Y5N ONE ×2 (09:35→09:39)
[2018-08-11] MEDS ORDERED: FLU VACCINE QUAD 60 MCG/0.5 ML (MDV 18-19) IM ONE (10:00)
[2018-08-11] MEDS ORDERED: FUROSEMIDE 40 MG/4 ML INJECTABLE VIAL IVPUSH SCH (10:00)
[2018-08-11] MEDS ORDERED: hydrALAZINE HCL 10 MG TABLET PO SCH (10:00)
[2018-08-11] MEDS: METOPROLOL TARTRATE 25 MG TABLET (FP) PO SCH ×2 (10:14→21:04)
[2018-08-11] MEDS: DOCUSATE SODIUM 100 MG CAPSULE (FP) PO SCH (10:14)
[2018-08-11] MEDS: rOPINIRole HCL 1 MG TABLET (FP) PO SCH (10:15)
[2018-08-11] MEDS: TIMOLOL 0.5% OPHTHALMIC SOL 5 ML BOTTLE OU SCH ×2 (10:15→21:05)
[2018-08-11] MEDS: dilTIAZem HCL 60 MG TABLET (FP) PO SCH ×2 (10:16→21:05)
[2018-08-11 12:33] LABS: BASO % 0.2 % (0-2.0); HEMATOCRIT 32.1 % (32.4-45.2); HEMOGLOBIN 10.5 GM/dL (10.7-15.3); LYMPH % 4.9 % (8-40); MCH 28.3 pg (25.7-33.7); MCHC 32.8 g/dl (32.0-36.0); MEAN CELL VOLUME 86.2 fl (80-96); MEAN PLT VOLUME 7.8 fl (7.5-11.1); MONO % 14.4 % (3.8-10.2); NEUT % 80.5 % (42.8-82.8); PLATELET COUNT 291 K/MM3 (134-434); RBC 3.73 M/mm3 (3.60-5.2); RDW 20.9 % (11.6-15.6); WHITE BLOOD COUNT 11.9 K/mm3 (4.0-10.0)
--- NOTE | 2018-08-11 13:29 | PN ---
Progress Note (short form) - Note Progress Note: patient is doing well she is still complaining of SOB but she stated it has improved. Acute hypoxic respiratory failure due to an acute on chronic congestive heart failure precipitated by URTI furosemide 40mg q12hr for diuresis and reassess the patient's dose daily monitor BUN Monitor urine output Daily weights NaCl restriction ECHO SIRS 2/2 atypical pneumonia tachycardia-123, tachypnea-24, LA-2.4, WBC-11.1 start the patient on Levofloxacin 750mg daily Hyponatremia - Could be hypervolemic hyponatremia due to volume overload 2/2 of CHF R/o legionella disease- urinary ag ordered TSH Leg edema bilateral f/u duplex anemia Stable H&H at this time No evidence of bleed HTN Hydralazine on hold c/w Diltiazem HLD, simvastatin AF , c/w apixiban Cont rate control with diltiazem FEN No fluids Monitor lytes Sodium PPx on apixiban t
[2018-08-11] MEDS: FUROSEMIDE 40 MG/4 ML INJECTABLE VIAL IVPUSH SCH (17:30)
--- NOTE | 2018-08-11 19:15 | PN ---
Progress Note (short form) - Note Progress Note: ID Consult dictated ?LLL pneumonia PCN allergy Await c/s Continue empiric levaquin
[2018-08-11] MEDS: ATORVASTATIN CA 10 MG TABLET (FP) PO SCH (21:04)
[2018-08-12] MEDS: FUROSEMIDE 40 MG/4 ML INJECTABLE VIAL IVPUSH SCH (06:35)
--- NOTE | 2018-08-12 09:05 | PN ---
Progress Note, Physician Chief Complaint: Cardiology for Sally TELE: AF rates much improved now with average b/t 70-100bpm, no pauses Weight: down from 155lbs to 148 lbs One isolated episode of lowish BP noted 100 systolic. - Current Medication List Current Medications: Active Medications Apixaban (Eliquis -) 2.5 mg PO BID [facility] Last Admin: 08/11/18 21:04 Dose: 2.5 mg Atorvastatin Calcium (Lipitor -) 10 mg PO HS [facility] Last Admin: 08/11/18 21:04 Dose: 10 mg Diltiazem HCl (Cardizem -) 120 mg PO BID [facility] Last Admin: 08/11/18 21:05 Dose: 120 mg Docusate Sodium (Colace -) 100 mg PO DAILY [facility] Last Admin: 08/11/18 10:14 Dose: 100 mg Furosemide (Lasix Injection -) 40 mg IVPUSH BID@0600,1400 [facility] Last Admin: 08/12/18 06:35 Dose: 40 mg Hydralazine HCl (Apresoline -) 10 mg PO BID [facility] Levofloxacin (Levaquin 250 Mg Premixed Ivpb -) 250 mg in 50 mls @ 50 mls/hr IVPB DAILY [facility]; Protocol Last Admin: 08/11/18 20:36 Dose: 50 mls/hr Metoprolol Tartrate (Lopressor -) 12.5 mg PO BID [facility] Last Admin: 08/11/18 21:04 Dose: 12.5 mg Ropinirole HCl (Requip -) 1 mg PO DAILY [facility] Last Admin: 08/11/18 10:15 Dose: 1 mg Timolol Maleate (Timoptic 0.5%) 1 drop OU BID [facility] Last Admin: 08/11/18 21:05 Dose: 1 drop - Objective Vital Signs: Vital Signs Temperature 97.6 F 08/12/18 06:00 Pulse Rate 97 H 08/12/18 06:00 Respiratory Rate 20 08/12/18 06:00 Blood Pressure 126/57 L 08/12/18 06:00 O2 Sat by Pulse Oximetry (%) 98 08/11/18 22:00 Constitutional: Yes: No Distress Cardiovascular: Yes: Pulse Irregular Respiratory: Yes: Other (no rales. Scattered rhonchi b/l) Gastrointestinal: Yes: Soft Edema: Yes Edema: LLE: 2+, RLE: 1+ Neurological: Yes: Alert Labs: CBC, BMP 08/11/18 08:30 08/11/18 08:30 INR, PTT INR 1.41 (0.83-1.09) H 08/10/18 21:40 Microbiology 08/11/18 10:41 Urine For Antigen Detection Legionella Antigen - Final 08/11/18 10:41 Urine For Antigen Detection Streptococcus pneumoniae Antigen (M - Final 08/11/18 03:51 Nasopharyngeal Swab Respiratory Syncytial Virus Ag - Final 08/10/18 21:50 Urine - Urine Clean Catch Urine Culture - Preliminary Lactose Fermenting Neg Bacilli Group D Strep Or Entero Coccus 08/10/18 20:50 Blood - Peripheral Venous Blood Culture - Preliminary NO GROWTH OBTAINED AFTER 24 HOURS, INCUBATION TO CONTINUE FOR 4 DAYS. 08/10/18 20:00 Blood - Peripheral Venous Blood Culture - Preliminary NO GROWTH OBTAINED AFTER 24 HOURS, INCUBATION TO CONTINUE FOR 4 DAYS. Laboratory Tests 08/11/18 08:30 Creatine Kinase 104 Troponin I 0.03 - ....Imaging Ultrasound: Image Reviewed (Negative for LE b/l) EKG: Image Reviewed Problem List - Problems (1) Acute on chronic diastolic (congestive) heart failure Code(s): I50.33 - ACUTE ON CHRONIC DIASTOLIC (CONGESTIVE) HEART FAILURE (2) Elevated brain natriuretic peptide (BNP) level Code(s): R79.89 - OTHER SPECIFIED ABNORMAL FINDINGS OF BLOOD CHEMISTRY (3) Shortness of breath Code(s): R06.02 - SHORTNESS OF BREATH (4) Atrial fibrillation with RVR Code(s): I48.91 - UNSPECIFIED ATRIAL FIBRILLATION (5) Pneumonia Code(s): J18.9 - PNEUMONIA, UNSPECIFIED ORGANISM Qualifiers: Pneumonia type: due to unspecified organism Laterality: left Assessment/Plan IMP: Acute on chronic diastolic CHF probably precipitated by AF w/ RVR CKD Possible PNA, UTI REC: 1. Review of tele reveals much improved heart rate trend with average now b/w 70 -100bpm with addition of Lopressor. Can Convert to Toprol XL 25mg daily prior to discharge if remains well controlled. Continue Cardizem. Continue Eliquis. Continue tele for additional 24 hours. 2. Continue IV Lasix for sx relief and control of volume overload, decrease to daily dosing today. 3. Goal BP < 140/90 (CKD):d/c hydralazine for now as beta rei introduced. Given episode of relative hypotension, will d/c hydralazine and observe BP trend. 4. Daily weights and low sodium diet. 5. Repeat echo in AM Coverage for Raúl
[2018-08-12] MEDS: DOCUSATE SODIUM 100 MG CAPSULE (FP) PO SCH (09:25)
[2018-08-12] MEDS: dilTIAZem HCL 60 MG TABLET (FP) PO SCH ×2 (09:25→21:16)
[2018-08-12] MEDS: METOPROLOL TARTRATE 25 MG TABLET (FP) PO SCH (09:25)
[2018-08-12] MEDS: APIXABAN 2.5 MG TABLET PO SCH ×2 (09:25→21:17)
[2018-08-12] MEDS: rOPINIRole HCL 1 MG TABLET (FP) PO SCH (09:27)
[2018-08-12] MEDS: TIMOLOL 0.5% OPHTHALMIC SOL 5 ML BOTTLE OU SCH ×2 (09:28→21:17)
[2018-08-12] MEDS ORDERED: FUROSEMIDE 40 MG/4 ML INJECTABLE VIAL IVPUSH SCH (10:00)
[2018-08-12 10:18] LABS: BASO % 0.2 % (0-2.0); EOS % 0.2 % (0-4.5); HEMATOCRIT 31.3 % (32.4-45.2); HEMOGLOBIN 10.1 GM/dL (10.7-15.3); LYMPH % 6.7 % (8-40); MCH 28.2 pg (25.7-33.7); MCHC 32.2 g/dl (32.0-36.0); MEAN CELL VOLUME 87.7 fl (80-96); MEAN PLT VOLUME 7.5 fl (7.5-11.1); MONO % 12.3 % (3.8-10.2); NEUT % 80.6 % (42.8-82.8); PLATELET COUNT 290 K/MM3 (134-434); RBC 3.56 M/mm3 (3.60-5.2); RDW 20.8 % (11.6-15.6); WHITE BLOOD COUNT 8.5 K/mm3 (4.0-10.0)
[2018-08-12 10:49] LABS: ALK PHOS 92 U/L (45-117); ANION GAP 7 MMOL/L (8-16); BILIRUBIN,TOTAL 0.8 mg/dL (0.2-1); BLOOD UREA NITROGEN 17 mg/dL (7-18); CALCIUM 8.9 mg/dL (8.5-10.1); CHLORIDE 95 mmol/L (98-107); CO2 32 mmol/L (21-32); CREATININE 1.1 mg/dL (0.55-1.3); GLUCOSE,RANDOM 101 mg/dL (74-106); MAGNESIUM 1.7 mg/dL (1.8-2.4); PHOSPHOROUS 3.6 mg/dL (2.5-4.9); POTASSIUM 3.5 mmol/L (3.5-5.1); SGOT/AST 22 U/L (15-37); SGPT/ALT 23 U/L (13-61); SODIUM 135 mmol/L (136-145); TOT PROT 6.2 g/dl (6.4-8.2)
[2018-08-12] MEDS: guaiFENesin/CODEINE 5 ML UNIT-DOSE CUPS PO PRN ×2 (10:56→22:33)
--- NOTE | 2018-08-12 11:01 | EKG ---
Test Reason : Blood Pressure : / mmHG Vent. Rate : 118 BPM Atrial Rate : 227 BPM P-R Int : 000 ms QRS Dur : 122 ms QT Int : 344 ms P-R-T Axes : 000 -48 121 degrees QTc Int : 482 ms ATRIAL FIBRILLATION WITH RAPID VENTRICULAR RESPONSE WITH PREMATURE VENTRICULAR OR ABERRANTLY CONDUCTED COMPLEXES LEFT AXIS DEVIATION NON-SPECIFIC INTRA-VENTRICULAR CONDUCTION DELAY ABNORMAL ECG Confirmed by DIMITRIOS PUGA MD ([id number]) on 08/12/2018 11:01:14 AM Referred By: Confirmed By:DIMITRIOS PUGA MD
--- NOTE | 2018-08-12 11:58 | PN ---
Progress Note, Physician History of Present Illness: Lethargic No complaints Breathing non-labored Afebrile WBC WNL - Current Medication List Current Medications: Active Medications Apixaban (Eliquis -) 2.5 mg PO BID [facility] Last Admin: 08/12/18 09:25 Dose: 2.5 mg Atorvastatin Calcium (Lipitor -) 10 mg PO HS [facility] Last Admin: 08/11/18 21:04 Dose: 10 mg Diltiazem HCl (Cardizem -) 120 mg PO BID [facility] Last Admin: 08/12/18 09:25 Dose: 120 mg Docusate Sodium (Colace -) 100 mg PO DAILY [facility] Last Admin: 08/12/18 09:25 Dose: 100 mg Furosemide (Lasix Injection -) 40 mg IVPUSH DAILY [facility] Guaifenesin/Codeine Phosphate (Robitussin Ac -) 5 ml PO TID PRN PRN Reason: COUGH Last Admin: 08/12/18 10:56 Dose: 5 ml Levofloxacin (Levaquin 250 Mg Premixed Ivpb -) 250 mg in 50 mls @ 50 mls/hr IVPB DAILY [facility]; Protocol Last Admin: 08/12/18 09:23 Dose: 50 mls/hr Metoprolol Tartrate (Lopressor -) 12.5 mg PO BID [facility] Last Admin: 08/12/18 09:25 Dose: 12.5 mg Ropinirole HCl (Requip -) 1 mg PO DAILY [facility] Last Admin: 08/12/18 09:27 Dose: 1 mg Timolol Maleate (Timoptic 0.5%) 1 drop OU BID [facility] Last Admin: 08/12/18 09:28 Dose: 1 drop - Objective Vital Signs: Vital Signs Temperature 97.6 F 08/12/18 10:00 Pulse Rate 73 08/12/18 10:00 Respiratory Rate 20 08/12/18 10:00 Blood Pressure 122/63 08/12/18 10:00 O2 Sat by Pulse Oximetry (%) 98 08/12/18 10:00 Constitutional: Yes: No Distress, Obese Cardiovascular: Yes: Regular Rate and Rhythm, S1, S2 Respiratory: Yes: Diminished Gastrointestinal: Yes: Normal Bowel Sounds, Soft, Abdomen, Obese. No: Tenderness Edema: Yes Labs: CBC, BMP 08/12/18 09:56 08/12/18 09:56 INR, PTT INR 1.41 (0.83-1.09) H 08/10/18 21:40 Assessment/Plan CHF Possible LLL pneumonia + Urine c/s = contamination PCN Continue empiric levaquin
--- NOTE | 2018-08-12 12:37 | PN ---
Physical Exam: SUBJECTIVE: Patient seen and examined this morning at bedside. No acute overnight events as per nursing. Continues to have cough and feels congested. Denies fevers, chills, chest pain, SOB, nausea, vomiting. OBJECTIVE: Vital Signs Period Temp Pulse Resp BP Sys/Kraus Pulse Ox Last 24 Hr 97.4 F-97.8 F 73-97 18-20 100-138/38-78 98-98 GENERAL: A&Ox3, NAD HEAD: NCAT EYES: PERRL, EOMI ENT: Hard of hearing, oropharynx clear without exudates, moist mucous membranes NECK: supple, +JVD LUNGS: Bibasalar crackles, Scattered wheezes HEART: Regular rate and rhythm, normal S1 and S2 ABDOMEN: Soft, nontender, not distended, + bowel sounds, no guarding EXTREMITIES: 2+ pulses, 2+ pitting edema b/l NEUROLOGICAL: Cranial nerves II-XII intact. Normal speech SKIN: Warm, dry, no rashes or lesions noted Laboratory Results - last 24 hr 08/11/18 08/11/18 08/12/18 08:30 08:30 09:56 WBC 11.9 H 8.5 RBC 3.73 3.56 L Hgb 10.5 L 10.1 L Hct 32.1 L 31.3 L MCV 86.2 87.7 MCH 28.3 28.2 MCHC 32.8 32.2 RDW 20.9 H 20.8 H Plt Count 291 290 MPV 7.8 7.5 Absolute Neuts (auto) 9.6 H 6.8 Neutrophils % 80.5 80.6 Lymphocytes % 4.9 L 6.7 L D Monocytes % 14.4 H 12.3 H Eosinophils % 0.0 0.2 D Basophils % 0.2 0.2 Nucleated RBC % 0 0 Sodium Potassium Chloride Carbon Dioxide Anion Gap BUN Creatinine Creat Clearance w eGFR Random Glucose Calcium Phosphorus Magnesium Total Bilirubin AST ALT Alkaline Phosphatase Total Protein Albumin Free T3 1.9 L 08/12/18 09:56 WBC RBC Hgb Hct MCV MCH MCHC RDW Plt Count MPV Absolute Neuts (auto) Neutrophils % Lymphocytes % Monocytes % Eosinophils % Basophils % Nucleated RBC % Sodium 135 L Potassium 3.5 Chloride 95 L Carbon Dioxide 32 Anion Gap 7 L BUN 17 Creatinine 1.1 Creat Clearance w eGFR 46.77 Random Glucose 101 Calcium 8.9 Phosphorus 3.6 Magnesium 1.7 L Total Bilirubin 0.8 AST 22 ALT 23 Alkaline Phosphatase 92 Total Protein 6.2 L Albumin 3.0 L Free T3 Microbiology 08/10/18 21:50 Urine - Urine Clean Catch Urine Culture - Preliminary Lactose Fermenting Neg Bacilli Group D Strep Or Entero Coccus 08/10/18 20:00 Blood - Peripheral Venous Blood Culture - Preliminary NO GROWTH OBTAINED AFTER 24 HOURS, INCUBATION TO CONTINUE FOR 4 DAYS. 08/10/18 20:50 Blood - Peripheral Venous Blood Culture - Preliminary NO GROWTH OBTAINED AFTER 24 HOURS, INCUBATION TO CONTINUE FOR 4 DAYS. 08/11/18 10:41 Urine For Antigen Detection Legionella Antigen - Final 08/11/18 10:41 Urine For Antigen Detection Streptococcus pneumoniae Antigen (M - Final 08/11/18 03:51 Nasopharyngeal Swab Respiratory Syncytial Virus Ag - Final 08/11/18 03:51 Nasopharyngeal Swab Influenza Types A,B Antigen - Final 08/11/18 03:51 Nasopharyngeal Swab - Final Active Medications Apixaban (Eliquis -) 2.5 mg PO BID [facility] Last Admin: 08/12/18 09:25 Dose: 2.5 mg Atorvastatin Calcium (Lipitor -) 10 mg PO HS [facility] Last Admin: 08/11/18 21:04 Dose: 10 mg Diltiazem HCl (Cardizem -) 120 mg PO BID [facility] Last Admin: 08/12/18 09:25 Dose: 120 mg Docusate Sodium (Colace -) 100 mg PO DAILY [facility] Last Admin: 08/12/18 09:25 Dose: 100 mg Furosemide (Lasix Injection -) 40 mg IVPUSH DAILY [facility] Guaifenesin/Codeine Phosphate (Robitussin Ac -) 5 ml PO TID PRN PRN Reason: COUGH Last Admin: 08/12/18 10:56 Dose: 5 ml Levofloxacin (Levaquin 250 Mg Premixed Ivpb -) 250 mg in 50 mls @ 50 mls/hr IVPB DAILY [facility]; Protocol Last Admin: 08/12/18 09:23 Dose: 50 mls/hr Metoprolol Tartrate (Lopressor -) 12.5 mg PO BID [facility] Last Admin: 08/12/18 09:25 Dose: 12.5 mg Ropinirole HCl (Requip -) 1 mg PO DAILY [facility] Last Admin: 08/12/18 09:27 Dose: 1 mg Timolol Maleate (Timoptic 0.5%) 1 drop OU BID [facility] Last Admin: 08/12/18 09:28 Dose: 1 drop IMAGING: -CXR: Imaging reveals a large heart, sclerotic knob, congestive changes and questionable left base infiltrate. Follow-up recommended -US Duplex 2 Legs: No DVT is identified involving either leg. Please see above. -EKG: ATRIAL FIBRILLATION WITH RAPID VENTRICULAR RESPONSE WITH PREMATURE VENTRICULAR OR ABERRANTLY CONDUCTED COMPLEXES, LEFT AXIS DEVIATION, QTc 482 ASSESSMENT/PLAN: 88 y/o F with a PMHx of Anemia, HTN, HLD, DCHF, AF (on Eliquis), restless leg syndrome presented from home for acute hypoxia sats 88%, with progressively worsening SOB, and productive cough for the past week as per son at bedside. 1. Acute hypoxic respiratory failure -Likely due to CHF exacerbation in the setting of URTI -Flu Swab, RSV, Urine legionella and strep negative -Continue IV Lasix 40mg -Strict I&Os, Daily weights -Fluid restriction < 1L/day -Supplemental O2 to maintain sats >90% -ECHO Pending -Cardiology (Dr Zavala) consulted, appreciate rec's, Continue Cardizem, Continue Eliquis, Continue IV Lasix Goal BP < 140/90, Begin Metoprolol tartrate 12.5 mg BID, Can Convert to Toprol XL 25mg daily prior to discharge if remains well controlled. -Monitor on Tele for another 24 hours -CXR: Congestive changes and questionable left base infiltrate 2. Sepsis -Likely 2/2 CAP Atypical PNA -On admission was tachycardic 123, tachypnic 24, LA 2.4, WBC 11.1; Tachycardia and tachypnea have resolved, WBC 8.5, LA 1.2 -Continue Levaquin (Started on 08/10) 3. Hyponatremia -Likely due to volume overload -Improved to 135 this am -TSH, Free T4 noted, Low T3 4. Leg edema -In the setting of fluid overload and recent immobility -US Duplex 2 Legs: No DVT is identified involving either leg. Please see above. -Continue IV Lasix 40mg 5. HTN -Cardiology (Dr Zavala) consulted, appreciate rec's, Goal BP < 140/90 (CKD): d/c hydralazine for now as beta rei introduced. Given episode of relative hypotension, will d/c hydralazine and observe BP trend. -Continue Diltiazem, Lasix, Lopressor; Hydralazine d/c'ed 6. Hx of HLD -Continue Lipitor 10 mg HS 7. Hx of Atrial fibrillation -Continue rate control with Diltiazem, Lopressor -Continue Eliquis 2.5mg BID 8. FEN -PO fluids -Contineu to monitor for hyponatremia -Sodium controlled diet 9. PPx -DVT: On home dose Eliquis Dispo:Tele inpatient Visit type - Emergency Visit Emergency Visit: Yes ED Registration Date: 08/10/18 Care time: The patient presented to the Emergency Department on the above date and was hospitalized for further evaluation of their emergent condition. - New Patient This patient is new to me today: No - Critical Care Critical Care patient: No - Discharge Referral Referred to [facility] No
--- NOTE | 2018-08-12 12:42 | CONS ---
DATE OF CONSULTATION: DATE OF DICTATION: 08/12/2018 INFECTIOUS DISEASE The patient is an 88-year-old female who is evaluated for possible pneumonia. She was admitted to the hospital on August 10, 2018 with a 1-week history of increasing shortness of breath, cough, wheezing, green sputum production, and altered mental status. According to the family she had become increasingly lethargic over the past several days with poor oral intake and increased weakness. She also had been suffering from upper respiratory tract infection and sore throat. She was admitted to the hospital where she was treated for decompensated congestive heart failure. A chest x-ray shows possible left lower lobe infiltrate. In the emergency room the patient was afebrile; however, tachycardic and tachypneic. She was noted to have an elevated white blood cell count and lactic acidosis. An influenza swab was performed and was negative. She is awake and alert. She has no focal complaint; however, she is noted to have a moist cough. Her breathing is nonlabored. No known ill contacts. No recent hospitalizations. She is a nonsmoker. Her influenza and pneumococcal status are not documented. PAST MEDICAL HISTORY: Positive for chronic anemia, hypertension, hyperlipidemia, congestive heart failure, chronic kidney disease, atrial fibrillation, and restless leg syndrome. ALLERGIES: AMOXICILLIN. MEDICATIONS: Levaquin, Eliquis, robitussin, Lopressor, Cardizem, Colace, Lipitor, and Lasix. SOCIAL HISTORY: She is a nonsmoker and nondrinker. She lives at home. No recent hospitalizations. REVIEW OF SYSTEMS: Neurologic: No loss of consciousness, seizure activity or focal weakness. Cardiac: Negative chest pain, no palpitations. Respiratory: As per HPI. Gastrointestinal: Negative vomiting, no diarrhea. Genitourinary: Negative for urinary tract infection. LABORATORY DATA: White count 11.9, 80 neutrophils, 4 lymphocytes, 14 monocytes, hematocrit 32.1, platelet count 291, BUN 12, and creatinine 0.8. Urinalysis 30 white cells. Blood cultures pending. Flu swab negative. PHYSICAL EXAMINATION: General: The patient is awake and in no acute distress. Vital Signs: Temperature 97.6, blood pressure 116/41, pulse 78 and regular, and respirations 20 per minute. HEENT: Sclerae anicteric. Cardiac: Heart sounds S1, S2. Lungs: Diminished breath sounds bilaterally. A few crepitations, left base. Abdomen: Soft, no tenderness elicited. No masses, rebound or rigidity. Extremities: Positive for edema. IMPRESSION: 1. Decompensated congestive heart failure. 2. Possible left lower lobe pneumonia. 3. Recent upper respiratory tract infection. 4. Positive urine culture likely contaminate. Await cultures. Empiric antibiotic coverage in this PENICILLIN-allergic patient with Levaquin 250 mg IV piggyback daily. Await sputum culture, urine Legionella, and pneumococcal antigens blood culture. Treatment for congestive heart failure. We will follow. Thank you for the kind referral. DIMITRIOS RESTREPO M.D. [id number]
[2018-08-12] MEDS ORDERED: PT OWN MED DRAWER 7, Y5N ONE (20:33)
[2018-08-12] MEDS: ATORVASTATIN CA 10 MG TABLET (FP) PO SCH (21:16)
[2018-08-13 06:53] LABS: BASO % 0.2 % (0-2.0); HEMATOCRIT 29.4 % (32.4-45.2); HEMOGLOBIN 9.4 GM/dL (10.7-15.3); LYMPH % 11.4 % (8-40); MEAN CELL VOLUME 87.5 fl (80-96); MEAN PLT VOLUME 7.4 fl (7.5-11.1); MONO % 18.4 % (3.8-10.2); PLATELET COUNT 258 K/MM3 (134-434); RBC 3.36 M/mm3 (3.60-5.2); RDW 20.3 % (11.6-15.6); WHITE BLOOD COUNT 7.4 K/mm3 (4.0-10.0)
[2018-08-13 07:30] LABS: ANION GAP 8 MMOL/L (8-16); BLOOD UREA NITROGEN 21 mg/dL (7-18); CALCIUM 8.8 mg/dL (8.5-10.1); CHLORIDE 96 mmol/L (98-107); CO2 32 mmol/L (21-32); CREATININE 1.3 mg/dL (0.55-1.3); GLUCOSE,RANDOM 76 mg/dL (74-106); MAGNESIUM 1.8 mg/dL (1.8-2.4); POTASSIUM 3.3 mmol/L (3.5-5.1); SODIUM 136 mmol/L (136-145)
--- NOTE | 2018-08-13 09:42 | PN ---
Progress Note, Physician History of Present Illness: 87 yo F with a h/o Anemia, HTN, HLD, OA, Diastolic Congestive heart failure, CKD stage III, Atrial fibrillation (Eliquis), restless leg syndrome who p/w SOB. Per patient son at bedside and primary caregiver, pt. has been experiencing cough, with green sputum production x 1 week, with progressive wheezing, and SOB. Son also reports 2 weeks of worsening mental status and night time confusion. + chronic leg swelling, and orthopnea. No home O2 requirements. Patient denies N/V, F/C, Palpitations, CP, SOB, urinary complaints, abdominal pain, diarrhea, constipation, lightheadedness, weakness, sensory changes. PMHx: as noted above ROS: as noted SHx: Denies tobacco use, IVDA, Etoh Allergies: NKDA - Current Medication List Current Medications: Active Medications Apixaban (Eliquis -) 2.5 mg PO BID [facility] Last Admin: 08/12/18 21:17 Dose: 2.5 mg Atorvastatin Calcium (Lipitor -) 10 mg PO HS [facility] Last Admin: 08/12/18 21:16 Dose: 10 mg Diltiazem HCl (Cardizem -) 120 mg PO BID [facility] Last Admin: 08/12/18 21:16 Dose: 120 mg Docusate Sodium (Colace -) 100 mg PO DAILY [facility] Last Admin: 08/12/18 09:25 Dose: 100 mg Furosemide (Lasix Injection -) 40 mg IVPUSH DAILY [facility] Guaifenesin/Codeine Phosphate (Robitussin Ac -) 5 ml PO TID PRN PRN Reason: COUGH Last Admin: 08/12/18 22:33 Dose: 5 ml Levofloxacin (Levaquin 250 Mg Premixed Ivpb -) 250 mg in 50 mls @ 50 mls/hr IVPB DAILY [facility]; Protocol Last Admin: 08/12/18 09:23 Dose: 50 mls/hr Potassium Chloride (K-Dur -) 40 meq PO ONCE ONE Stop: 08/13/18 09:46 Ropinirole HCl (Requip -) 1 mg PO DAILY [facility] Last Admin: 08/12/18 09:27 Dose: 1 mg Timolol Maleate (Timoptic 0.5%) 1 drop OU BID [facility] Last Admin: 08/12/18 21:17 Dose: 1 drop - Objective Vital Signs: Vital Signs Temperature 97.3 F L 10/15/18 07:31 Pulse Rate 74 08/13/18 07:31 Respiratory Rate 22 H 08/13/18 07:32 Blood Pressure 103/46 L 08/13/18 07:31 O2 Sat by Pulse Oximetry (%) 96 08/13/18 07:32 Eyes: Yes: WNL, Conjunctiva Clear, EOM Intact HENT: Yes: WNL, Atraumatic, Normocephalic Neck: Yes: WNL, Supple, Trachea Midline Cardiovascular: Yes: Pulse Irregular, S1, S2 Respiratory: Yes: WNL, Regular, CTA Bilaterally Gastrointestinal: Yes: WNL, Normal Bowel Sounds Genitourinary: Yes: WNL Musculoskeletal: Yes: WNL Extremities: Yes: WNL Edema: No Edema: LLE: 1+, RLE: 1+ Integumentary: Yes: WNL Neurological: Yes: WNL, Alert, Oriented ...Motor Strength: WNL Psychiatric: Yes: WNL Labs: CBC, BMP 08/13/18 05:30 08/13/18 05:30 INR, PTT INR 1.41 (0.83-1.09) H 08/10/18 21:40 Problem List - Problems (1) Acute on chronic diastolic (congestive) heart failure Code(s): I50.33 - ACUTE ON CHRONIC DIASTOLIC (CONGESTIVE) HEART FAILURE (2) Elevated brain natriuretic peptide (BNP) level Code(s): R79.89 - OTHER SPECIFIED ABNORMAL FINDINGS OF BLOOD CHEMISTRY (3) Hypoxia Code(s): R09.02 - HYPOXEMIA (4) Shortness of breath Code(s): R06.02 - SHORTNESS OF BREATH (5) [id number] kidney injury Code(s): N17.9 - ACUTE KIDNEY FAILURE, UNSPECIFIED; N18.9 - CHRONIC KIDNEY DISEASE, UNSPECIFIED Qualifiers: Acute renal failure type: unspecified (6) Allergic reaction Code(s): T78.40XA - ALLERGY, UNSPECIFIED, INITIAL ENCOUNTER Qualifiers: Encounter type: initial encounter Qualified Code(s): T78.40XA - Allergy, unspecified, initial encounter (7) Atrial fibrillation with RVR Code(s): I48.91 - UNSPECIFIED ATRIAL FIBRILLATION (8) Atrial flutter with rapid ventricular response Code(s): I48.92 - UNSPECIFIED ATRIAL FLUTTER (9) Back pain Code(s): M54.9 - DORSALGIA, UNSPECIFIED (10) Dehydration Code(s): E86.0 - DEHYDRATION (11) Diastolic dysfunction Code(s): I51.9 - HEART DISEASE, UNSPECIFIED (12) History of dyspnea Code(s): Z87.09 - PERSONAL HISTORY OF OTHER DISEASES OF THE RESPIRATORY SYSTEM (13) Leukocytosis Code(s): D72.829 - ELEVATED WHITE BLOOD CELL COUNT, UNSPECIFIED Qualifiers: Leukocytosis type: unspecified Qualified Code(s): D72.829 - Elevated white blood cell count, unspecified (14) Paroxysmal atrial fibrillation Code(s): I48.0 - PAROXYSMAL ATRIAL FIBRILLATION (15) Pericardial effusion Code(s): I31.3 - PERICARDIAL EFFUSION (NONINFLAMMATORY) (16) Pneumonia Code(s): J18.9 - PNEUMONIA, UNSPECIFIED ORGANISM Qualifiers: Pneumonia type: due to unspecified organism Laterality: left (17) Sepsis Code(s): A41.9 - SEPSIS, UNSPECIFIED ORGANISM (18) Sinus bradycardia Code(s): R00.1 - BRADYCARDIA, UNSPECIFIED (19) Chronic kidney disease Code(s): N18.9 - CHRONIC KIDNEY DISEASE, UNSPECIFIED Qualifiers: Chronic kidney disease stage: stage 2 (mild) Qualified Code(s): N18.2 - Chronic kidney disease, stage 2 (mild) (20) HTN (hypertension) Code(s): I10 - ESSENTIAL (PRIMARY) HYPERTENSION Qualifiers: Hypertension type: essential hypertension Qualified Code(s): I10 - Essential (primary) hypertension (21) Hypercholesterolemia Code(s): E78.00 - PURE HYPERCHOLESTEROLEMIA, UNSPECIFIED (22) Osteoarthritis Code(s): M19.90 - UNSPECIFIED OSTEOARTHRITIS, UNSPECIFIED SITE Qualifiers: Osteoarthritis location: knee Osteoarthritis type: unspecified Laterality : right Qualified Code(s): M17.11 - Unilateral primary osteoarthritis, right knee Assessment/Plan IMP: Acute on chronic diastolic CHF probably precipitated by AF w/ RVR CKD Possible PNA, UTI REC: 1. Review of tele reveals much improved heart rate trend with average now b/w 70 -100bpm with addition of Lopressor. Can Convert to Toprol XL 25mg daily prior to discharge if remains well controlled. Continue Cardizem. Continue Eliquis. Continue tele for additional 24 hours. 2. Continue IV Lasix for sx relief and control of volume overload, decrease to daily dosing today. 3. Goal BP < 140/90 (CKD):d/c hydralazine for now as beta rei introduced. Given episode of relative hypotension, will d/c hydralazine and observe BP trend. 4. Daily weights and low sodium diet. 5. Repeat echo in AM
[2018-08-13] MEDS: APIXABAN 2.5 MG TABLET PO SCH ×2 (09:44→22:37)
[2018-08-13] MEDS: DOCUSATE SODIUM 100 MG CAPSULE (FP) PO SCH (09:44)
[2018-08-13] MEDS: dilTIAZem HCL 60 MG TABLET (FP) PO SCH (09:44)
[2018-08-13] MEDS: TIMOLOL 0.5% OPHTHALMIC SOL 5 ML BOTTLE OU SCH ×2 (09:45→22:37)
[2018-08-13] MEDS ORDERED: POTASSIUM CHLORIDE TABS 20 MEQ TABLET.ER (FP) PO ONE (09:45)
[2018-08-13] MEDS: FUROSEMIDE 40 MG/4 ML INJECTABLE VIAL IVPUSH SCH (09:45)
[2018-08-13] MEDS: rOPINIRole HCL 1 MG TABLET (FP) PO SCH (09:47)
[2018-08-13] MEDS: guaiFENesin/CODEINE 5 ML UNIT-DOSE CUPS PO PRN ×2 (09:47→22:39)
[2018-08-13] MEDS ORDERED: FUROSEMIDE 40 MG/4 ML INJECTABLE VIAL IVPUSH ONE (11:34)
--- NOTE | 2018-08-13 12:19 | ECHO ---
Name: EZEQUIEL MENDEZ Exam:Adult Echocardiogram Study Date: 08/13/2018 10:53 AM Age: 88 yrs Reason For Study: CHF Height: 62 in Weight: 155 lb BSA: 1.7 m2 MMode/2D Measurements & Calculations IVSd: 0.95 cm Ao root diam: 2.6 cm LVIDd: 3.8 cm LA dimension: 4.8 cm LVIDs: 2.9 cm LVPWd: 0.83 cm EDV(Teich): 60.9 ml TAPSE: 1.8 cm ESV(Teich): 31.9 ml RV S Fabián: 6.1 cm/sec Doppler Measurements & Calculations MV E max fabián: 85.4 cm/sec Ao V2 max: 124.9 cm/sec MV A max fabián: 32.1 cm/sec Ao max P.2 mmHg MV E/A: 2.7 MV dec time: 0.22 sec LV V1 max P.7 mmHg MR max fabián: 230.8 cm/sec LV V1 max: 82.3 cm/sec MR max P.3 mmHg TR max fabián: 255.3 cm/sec PI end-d fabián: 83.9 cm/sec TR max P.8 mmHg Med Peak E' Fabián: 3.4 cm/sec Med E/e': 25.0 Lat Peak E' Fabián: 6.4 cm/sec Lat E/e': 13.4 Procedure A complete two-dimensional transthoracic echocardiogram was performed (2D, M-mode, Doppler and color flow Doppler). Technically limited study. Left Ventricle The left ventricle is normal in size. Left ventricular systolic function is mildly reduced. Mitral in flow and TDI reveals restrictive physiology with elevated filling pressure (E/E' >20). There is mild anterior wall hypokinesis. There is basal anteroseptal wall mild hypokinesis. There is mid anteroseptal wall mild hypokinesis. There are regional wall motion abnormalities as specified. Right Ventricle The right ventricle is not well visualized. RV systolic TDI is 6 cm/s suggests decreased RV systolic function. Atria The left atrium is moderately dilated. The right atrium is mildly dilated. Mitral Valve There is moderate mitral annular calcification. There is mild mitral regurgitation. Tricuspid Valve The tricuspid valve is normal in structure and function. There is moderate tricuspid regurgitation. P ulmonary artery systolic pressure is at least 40 mmHg assuming RA pressure of 3 mmHg. Aortic Valve There is mild aortic sclerosis.;. The aortic valve is trileaflet. No aortic regurgitation is present. Pulmonic Valve The pulmonic valve is not well visualized. Mild pulmonic valvular regurgitation. Great Vessels The aortic root is normal size. Pericardium/Pleura Small pericardial effusion (<1cm). There is a pleural effusion present. Interpretation Summary Technically limited study The left ventricle is normal in size. Left ventricular systolic function is mildly reduced. There is mild anterior wall hypokinesis. There are regional wall motion abnormalities as specified. Mitral inflow and TDI reveals restrictive physiology with elevated filling pressure (E/E' >20) RV systolic TDI is 6 cm/s suggests decreased RV systolic function The right ventricle is not well visualized. The left atrium is moderately dilated. The right atrium is mildly dilated. There is moderate mitral annular calcification. There is mild mitral regurgitation. There is moderate tricuspid regurgitation. Pulmonary artery systolic pressure is at least 40 mmHg assuming RA pressure of 3 mmHg There is mild aortic sclerosis. No aortic regurgitation is present. Mild pulmonic valvular regurgitation. Small pericardial effusion (<1cm) There is a pleural effusion present. Previous study is not available for comparison Amandeep Alonso MD 08/13/2018 12:18 PM
[2018-08-13 12:59] LABS: N-TERMINAL BNP 11625.8 pg/ml (5-450)
[2018-08-13 13:24] LABS: ARTERIAL BLD GAS O2 SATURATION 98.6 % (90-98.9); ARTERIAL BLOOD GAS BASE EXCESS 4.8 meq/l (-2-2); ARTERIAL BLOOD GAS PCO2 60.7 mmHg (35-45); ARTERIAL BLOOD GAS pH 7.33 (7.35-7.45)
[2018-08-13 13:26] LABS: ALLENS TEST POSITIVE
--- NOTE | 2018-08-13 15:31 | PN ---
Progress Note, Physician History of Present Illness: Lethargic No complaints Breathing non-labored + cough noted Afebrile WBC WNL - Current Medication List Current Medications: Active Medications Apixaban (Eliquis -) 2.5 mg PO BID [facility] Last Admin: 08/13/18 09:44 Dose: 2.5 mg Atorvastatin Calcium (Lipitor -) 10 mg PO HS [facility] Last Admin: 08/12/18 21:16 Dose: 10 mg Diltiazem HCl (Cardizem -) 90 mg PO BID [facility] Docusate Sodium (Colace -) 100 mg PO DAILY [facility] Last Admin: 08/13/18 09:44 Dose: 100 mg Furosemide (Lasix Injection -) 40 mg IVPUSH DAILY [facility] Last Admin: 08/13/18 09:45 Dose: 40 mg Guaifenesin/Codeine Phosphate (Robitussin Ac -) 5 ml PO TID PRN PRN Reason: COUGH Last Admin: 08/13/18 09:47 Dose: 5 ml Levofloxacin (Levaquin 250 Mg Premixed Ivpb -) 250 mg in 50 mls @ 50 mls/hr IVPB DAILY [facility]; Protocol Last Admin: 08/13/18 09:45 Dose: 50 mls/hr Ropinirole HCl (Requip -) 1 mg PO DAILY [facility] Last Admin: 08/13/18 09:47 Dose: 1 mg Timolol Maleate (Timoptic 0.5%) 1 drop OU BID [facility] Last Admin: 08/13/18 09:45 Dose: 1 drop - Objective Vital Signs: Vital Signs Temperature 97.3 F L 08/13/18 07:31 Pulse Rate 74 08/13/18 07:31 Respiratory Rate 22 H 08/13/18 07:32 Blood Pressure 103/46 L 08/13/18 07:31 O2 Sat by Pulse Oximetry (%) 96 08/13/18 07:32 Constitutional: Yes: No Distress Eyes: Yes: Conjunctiva Clear Cardiovascular: Yes: Regular Rate and Rhythm, S1, S2 Respiratory: Yes: Rhonchi Gastrointestinal: Yes: Normal Bowel Sounds, Soft, Abdomen, Obese. No: Tenderness Edema: Yes Labs: CBC, BMP 08/13/18 05:30 08/13/18 05:30 INR, PTT INR 1.41 (0.83-1.09) H 08/10/18 21:40 Assessment/Plan CHF Possible LLL pneumonia + Urine c/s = contamination PCN Continue empiric levaquin Discussed with family at bedside
--- NOTE | 2018-08-13 17:49 | PN ---
Physical Exam: SUBJECTIVE: Patient seen and examined this morning at bedside. No acute overnight events as per nursing. Continues to have cough but does not feel SOB. Her son Eric was present during my interview and mentioned that at baseline, she has had difficulty lately climbing steps and with use of her walker. Denies fevers, chills, chest pain, SOB, nausea, vomiting. OBJECTIVE: Vital Signs Period Temp Pulse Resp BP Sys/Kraus Pulse Ox Last 24 Hr 97.3 F-97.9 F 74-86 20-22 102-120/44-76 96-96 GENERAL: A&Ox3, NAD HEAD: NCAT EYES: PERRL, EOMI ENT: Hard of hearing, oropharynx clear without exudates, moist mucous membranes NECK: supple, +JVD LUNGS: Bibasalar crackles, Scattered rales HEART: Regular rate and rhythm, normal S1 and S2 ABDOMEN: Soft, nontender, not distended, + bowel sounds, no guarding EXTREMITIES: 2+ pulses, 2+ pitting edema b/l NEUROLOGICAL: Cranial nerves II-XII intact. Normal speech SKIN: Warm, dry, no rashes or lesions noted Laboratory Results - last 24 hr 08/13/18 08/13/18 08/13/18 05:30 05:30 12:15 WBC 7.4 RBC 3.36 L Hgb 9.4 L Hct 29.4 L MCV 87.5 MCH 28.0 MCHC 32.0 RDW 20.3 H Plt Count 258 MPV 7.4 L Absolute Neuts (auto) 5.1 Neutrophils % 69.0 Lymphocytes % 11.4 D Monocytes % 18.4 H Eosinophils % 1.0 D Basophils % 0.2 Nucleated RBC % 0 Puncture Site ABG pH ABG pCO2 at Pt Temp ABG pO2 at Pt Temp ABG HCO3 ABG O2 Sat (Measured) ABG O2 Content ABG Base Excess Carlos Test O2 Delivery Device Oxygen Flow Rate Mechanical Rate PEEP Sodium 136 Potassium 3.3 L Chloride 96 L Carbon Dioxide 32 Anion Gap 8 BUN 21 H Creatinine 1.3 Creat Clearance w eGFR 38.57 Random Glucose 76 Calcium 8.8 Phosphorus 4.0 Magnesium 1.8 B-Natriuretic Peptide 69048.8 H Cancelled 08/13/18 13:05 WBC RBC Hgb Hct MCV MCH MCHC RDW Plt Count MPV Absolute Neuts (auto) Neutrophils % Lymphocytes % Monocytes % Eosinophils % Basophils % Nucleated RBC % Puncture Site Right radial ABG pH 7.33 L ABG pCO2 at Pt Temp 60.7 H* ABG pO2 at Pt Temp 104.0 H ABG HCO3 31.2 H ABG O2 Sat (Measured) 98.6 ABG O2 Content 12.5 L ABG Base Excess 4.8 H Carlos Test Positive O2 Delivery Device Nasal cannula Oxygen Flow Rate 2l Mechanical Rate No PEEP 0.0 Sodium Potassium Chloride Carbon Dioxide Anion Gap BUN Creatinine Creat Clearance w eGFR Random Glucose Calcium Phosphorus Magnesium B-Natriuretic Peptide Microbiology 08/10/18 21:50 Urine - Urine Clean Catch Urine Culture - Final Escherichia Coli Group D Strep Or Entero Coccus 08/10/18 20:00 Blood - Peripheral Venous Blood Culture - Preliminary NO GROWTH OBTAINED AFTER 48 HOURS, INCUBATION TO CONTINUE FOR 3 DAYS. 08/10/18 20:50 Blood - Peripheral Venous Blood Culture - Preliminary NO GROWTH OBTAINED AFTER 48 HOURS, INCUBATION TO CONTINUE FOR 3 DAYS. 08/11/18 10:41 Urine For Antigen Detection Legionella Antigen - Final 08/11/18 10:41 Urine For Antigen Detection Streptococcus pneumoniae Antigen (M - Final 08/11/18 03:51 Nasopharyngeal Swab Respiratory Syncytial Virus Ag - Final 08/11/18 03:51 Nasopharyngeal Swab Influenza Types A,B Antigen - Final 08/11/18 03:51 Nasopharyngeal Swab - Final Active Medications Apixaban (Eliquis -) 2.5 mg PO BID [facility] Last Admin: 08/13/18 09:44 Dose: 2.5 mg Atorvastatin Calcium (Lipitor -) 10 mg PO HS [facility] Last Admin: 08/12/18 21:16 Dose: 10 mg Diltiazem HCl (Cardizem -) 90 mg PO BID [facility] Docusate Sodium (Colace -) 100 mg PO DAILY [facility] Last Admin: 08/13/18 09:44 Dose: 100 mg Furosemide (Lasix Injection -) 40 mg IVPUSH DAILY [facility] Last Admin: 08/13/18 09:45 Dose: 40 mg Guaifenesin/Codeine Phosphate (Robitussin Ac -) 5 ml PO TID PRN PRN Reason: COUGH Last Admin: 08/13/18 09:47 Dose: 5 ml Levofloxacin (Levaquin 250 Mg Premixed Ivpb -) 250 mg in 50 mls @ 50 mls/hr IVPB DAILY [facility]; Protocol Last Admin: 08/13/18 09:45 Dose: 50 mls/hr Ropinirole HCl (Requip -) 1 mg PO DAILY [facility] Last Admin: 08/13/18 09:47 Dose: 1 mg Timolol Maleate (Timoptic 0.5%) 1 drop OU BID [facility] Last Admin: 08/13/18 09:45 Dose: 1 drop IMAGING: -CXR (08/10): Imaging reveals a large heart, sclerotic knob, congestive changes and questionable left base infiltrate. Follow-up recommended -CXR (08/13): Increased opacification of the left hemithorax attributed to the pleural effusion, left lung atelectasis shift of mediastinal structures to the left side. Normal aeration of the lung right lung. No pneumothorax or large pleural effusion is seen. Clinically correlate for malignant process. -US Duplex 2 Legs: No DVT is identified involving either leg. Please see above. -EKG: ATRIAL FIBRILLATION WITH RAPID VENTRICULAR RESPONSE WITH PREMATURE VENTRICULAR OR ABERRANTLY CONDUCTED COMPLEXES, LEFT AXIS DEVIATION, QTc 482 -ECHO: LV systolic function is mildly reduced. Mild anterior wall hypokinesis. LA is moderately dilated, RA is mildly dilated. Mild MR, Moderate TR. Mild Pulmonic Valvular regurg, Small pericardial effusion. Pleural effusion present. ASSESSMENT/PLAN: 88 y/o F with a PMHx of Anemia, HTN, HLD, DCHF, AF (on Eliquis), restless leg syndrome presented from home for acute hypoxia sats 88%, with progressively worsening SOB, and productive cough for the past week as per son at bedside. 1. Acute hypoxic respiratory failure -Likely due to CHF exacerbation in the setting of URTI -Flu Swab, RSV, Urine legionella and strep negative -Continue IV Lasix 40mg -Strict I&Os, Daily weights -Fluid restriction < 1L/day -Supplemental O2 to maintain sats >90% -ECHO: LV systolic function is mildly reduced. Mild anterior wall hypokinesis. Small pericardial effusion. Pleural effusion present. -Cardiology (Dr Zavala) consulted, appreciate rec's, Continue Cardizem, Continue Eliquis, Continue IV Lasix Goal BP < 140/90, Begin Metoprolol tartrate 12.5 mg BID, Can Convert to Toprol XL 25mg daily prior to discharge if remains well controlled. -Monitor on Tele for another 24 hours -CXR (08/10): Congestive changes and questionable left base infiltrate -Repeat CXR noted above -Chest CT without contrast ordered to determine if thoracentesis is necessary 2. Sepsis -Likely 2/2 CAP Atypical PNA -On admission was tachycardic 123, tachypnic 24, LA 2.4, WBC 11.1; Tachycardia and tachypnea have resolved, WBC 8.5, LA 1.2 -ID (Dr. Sousa) consulted, appreciate rec's -Continue Levaquin (Started on 08/10) -Urine cultures noted above, likely contaminanted 3. Transient Bradycardia -Tele strip reveals episodes of HR < 40 -D/C'ed Lopressor however continues to have episodes of Bradycardia -Diltiazem dose reduced to 90mg BID (previously 120mg BID) 4. Hyponatremia -Likely due to volume overload, Improved -TSH, Free T4 noted, Low T3 5. Leg edema -In the setting of fluid overload and recent immobility -US Duplex 2 Legs: No DVT is identified involving either leg. Please see above. -Continue IV Lasix 40mg 6. HTN -Cardiology (Dr Zavala) consulted, appreciate rec's, Goal BP < 140/90 (CKD): d/c hydralazine for now as beta rei introduced. Given episode of relative hypotension, will d/c hydralazine and observe BP trend. -Continue Diltiazem, Lasix, Lopressor; Hydralazine d/c'ed 7. Hx of HLD -Continue Lipitor 10 mg HS 8. Hx of Atrial fibrillation -Continue rate control with Diltiazem (Reduced dose) -Lopressor Held -Continue Eliquis 2.5mg BID 9. FEN -PO fluids -Contineu to monitor for hyponatremia -Sodium controlled diet 10. PPx -DVT: On home dose Eliquis Dispo:Tele inpatient Visit type - Emergency Visit Emergency Visit: Yes ED Registration Date: 08/10/18 Care time: The patient presented to the Emergency Department on the above date and was hospitalized for further evaluation of their emergent condition. - New Patient This patient is new to me today: No - Critical Care Critical Care patient: No - Discharge Referral Referred to [facility] Med P.C.: No
--- NOTE | 2018-08-13 17:53 | PN ---
Teaching Attending Note Name of Resident: Margareth De Souza ATTENDING PHYSICIAN STATEMENT I saw and evaluated the patient. I reviewed the resident's note and discussed the case with the resident. I agree with the resident's findings and plan as documented. SUBJECTIVE: Stated SOB in AM; difficult historian. CXR shows increasing opacification of L- lung jewell, still on O2 via NC. Doesn't appear to be in respiratory distress. Echo done; read this AM to have mildly reduced systolic function with likely diastolic dysfunction and anterior apokinesis. OBJECTIVE: VSS, labs and imaging reviewed AAOx2, NAD, on O2 via NC Decreased L-side breath sounds, sym expansion, scattered rales Minor JVD, trachea midline Soft NT ND +BS ASSESSMENT AND PLAN: 1) Acute Respiratory Failure -2/2 CHF +/- Pneumonia, treating underlying cause 2) Acute on Chronic mixed CHF exacerbation -Continue with diuresis, etc. per cardiology. -Increased size of effusion L>R; checking CT and will elucidate if thoracentesis can be of use -Control rate -DC hydralazine per cardio 3) Transient Bradycardia -Decreased dose of dilt; followup tele 4) Afib with RVR -Changes in #3; continuing other meds. Control rate to not precipitate rate related fluid overload 5) L-sided changes (atelectesis, ?consolidation, effusion) -Check noncontrast CT to see if thora could be of help. 6) CKD -Monitor and trend 7) ?PNA -Followup cx; empiric levaquin 8) Likely contaminated ucx; will address if no improvement with optimizing management of other issues Dispo: Spoke with the son; she does have a DNR/I in place from prior due to her multiple comorbidities, challenging QOL, etc. This is thus reasonable. Asked resident to copy and place in chart. Will complete MOLST.
[2018-08-13] MEDS: ATORVASTATIN CA 10 MG TABLET (FP) PO SCH (22:37)
[2018-08-13] MEDS: dilTIAZem HCL 30 MG TABLET (FP) PO SCH (22:37)
[2018-08-14] MEDS ORDERED: ALBUTEROL SO4 2.5/IPRATROPIUM 0.5 INH SOL 3 ML VIAL.NEB. NEB ONE ×2 (05:01→05:15)
[2018-08-14 07:02] LABS: BASO % 0.3 % (0-2.0); EOS % 1.2 % (0-4.5); HEMATOCRIT 32.1 % (32.4-45.2); HEMOGLOBIN 10.3 GM/dL (10.7-15.3); MEAN CELL VOLUME 87.3 fl (80-96); MEAN PLT VOLUME 7.5 fl (7.5-11.1); MONO % 16.1 % (3.8-10.2); NEUT % 72.4 % (42.8-82.8); PLATELET COUNT 295 K/MM3 (134-434); RBC 3.68 M/mm3 (3.60-5.2); RDW 20.2 % (11.6-15.6); WHITE BLOOD COUNT 8.7 K/mm3 (4.0-10.0)
[2018-08-14 07:15] LABS: ALBUMIN 2.8 g/dl (3.4-5.0); ALK PHOS 81 U/L (45-117); ANION GAP 11 MMOL/L (8-16); BILIRUBIN,TOTAL 0.8 mg/dL (0.2-1); BLOOD UREA NITROGEN 21 mg/dL (7-18); CALCIUM 8.8 mg/dL (8.5-10.1); CHLORIDE 97 mmol/L (98-107); CO2 30 mmol/L (21-32); CREATININE 1.3 mg/dL (0.55-1.3); GLUCOSE,RANDOM 60 mg/dL (74-106); MAGNESIUM 1.8 mg/dL (1.8-2.4); PHOSPHOROUS 3.2 mg/dL (2.5-4.9); POTASSIUM 3.6 mmol/L (3.5-5.1); SGOT/AST 22 U/L (15-37); SGPT/ALT 21 U/L (13-61); SODIUM 139 mmol/L (136-145); TOT PROT 5.9 g/dl (6.4-8.2)
[2018-08-14] MEDS ORDERED: PT OWN MED DRAWER 7, Y5N ONE ×3 (08:53→21:20)
[2018-08-14] MEDS: APIXABAN 2.5 MG TABLET PO SCH ×2 (09:40→21:43)
[2018-08-14] MEDS: DOCUSATE SODIUM 100 MG CAPSULE (FP) PO SCH (09:40)
[2018-08-14] MEDS: metoPROLOL SUCCINATE 25 MG TAB.SR.24H (FP) PO SCH (09:40)
[2018-08-14] MEDS: rOPINIRole HCL 1 MG TABLET (FP) PO SCH (09:41)
[2018-08-14] MEDS: TIMOLOL 0.5% OPHTHALMIC SOL 5 ML BOTTLE OU SCH ×2 (09:41→21:55)
[2018-08-14] MEDS: dilTIAZem HCL 30 MG TABLET (FP) PO SCH ×2 (09:46→21:42)
--- NOTE | 2018-08-14 10:35 | PN ---
Progress Note, Physician History of Present Illness: The patient is a 88 year old white female with a significant PMH of anemia, HTN , HLD, diastolic congestive heart failure, CKD stage III, atrial fibrillation ( on Eliquis), restless leg syndrome, chronic knee pain with reduced ROM who presents to the emergency department with progressively worsening shortness of breath and productive cough for the past week as per son at bedside. Patient states his cough is productive of green sputum with associated wheezing and shortness of breath. Son at bedside also states the patient has been more confused over the past few days. Patient is not on home O2. The patient endorses chronic lower extremity swelling, but denies chest pain, headache and dizziness. Denies fever, chills, nausea, vomit, diarrhea and constipation. Denies dysuria, frequency, urgency and hematuria. Allergies: NKA Past surgical history: Social history: No reported PCP: Dr. Salinas Pascual Lockstitch Waistline Joiner: Dr. Zavala - Current Medication List Current Medications: Active Medications Apixaban (Eliquis -) 2.5 mg PO BID [facility] Last Admin: 08/14/18 09:40 Dose: 2.5 mg Atorvastatin Calcium (Lipitor -) 10 mg PO HS [facility] Last Admin: 08/13/18 22:37 Dose: 10 mg Diltiazem HCl (Cardizem -) 90 mg PO BID [facility] Last Admin: 08/14/18 09:46 Dose: 90 mg Docusate Sodium (Colace -) 100 mg PO DAILY [facility] Last Admin: 08/14/18 09:40 Dose: 100 mg Furosemide (Lasix Injection -) 40 mg IVPUSH DAILY [facility] Last Admin: 08/13/18 09:45 Dose: 40 mg Guaifenesin/Codeine Phosphate (Robitussin Ac -) 5 ml PO TID PRN PRN Reason: COUGH Last Admin: 08/13/18 22:39 Dose: 5 ml Levofloxacin (Levaquin 250 Mg Premixed Ivpb -) 250 mg in 50 mls @ 50 mls/hr IVPB DAILY [facility]; Protocol Last Admin: 08/14/18 09:41 Dose: 50 mls/hr Metoprolol Succinate (Toprol Xl -) 25 mg PO DAILY [facility] Last Admin: 08/14/18 09:40 Dose: 25 mg Ropinirole HCl (Requip -) 1 mg PO DAILY [facility] Last Admin: 08/14/18 09:41 Dose: 1 mg Timolol Maleate (Timoptic 0.5%) 1 drop OU BID [facility] Last Admin: 08/14/18 09:41 Dose: 1 drop - Objective Vital Signs: Vital Signs Temperature 98 F 08/14/18 09:34 Pulse Rate 120 H 08/14/18 09:34 Respiratory Rate 24 H 08/14/18 09:34 Blood Pressure 90/50 L 08/14/18 09:34 O2 Sat by Pulse Oximetry (%) 92 L 08/14/18 09:57 Labs: CBC, BMP 08/14/18 05:30 08/14/18 05:30 INR, PTT INR 1.41 (0.83-1.09) H 08/10/18 21:40 Problem List - Problems (1) Acute on chronic systolic (congestive) heart failure Assessment/Plan: On metoprolol and furosemide. Start ACEI or ARB if renal function improves. F/u BUn/Cr, electrolytes, daily weight, electrolytes. Code(s): I50.23 - ACUTE ON CHRONIC SYSTOLIC (CONGESTIVE) HEART FAILURE (2) Malignancy Assessment/Plan: r/o lung malignancy: ateletasis, pleural effusion, mediastinal stricutres left- sided. f/u with sr. pricing analyst. Code(s): C80.1 - MALIGNANT (PRIMARY) NEOPLASM, UNSPECIFIED (3) Elevated brain natriuretic peptide (BNP) level Code(s): R79.89 - OTHER SPECIFIED ABNORMAL FINDINGS OF BLOOD CHEMISTRY (4) Paroxysmal atrial fibrillation Code(s): I48.0 - PAROXYSMAL ATRIAL FIBRILLATION (5) Pericardial effusion Code(s): I31.3 - PERICARDIAL EFFUSION (NONINFLAMMATORY) (6) Pneumonia Code(s): J18.9 - PNEUMONIA, UNSPECIFIED ORGANISM Qualifiers: Pneumonia type: due to unspecified organism Laterality: left (7) Chronic kidney disease Code(s): N18.9 - CHRONIC KIDNEY DISEASE, UNSPECIFIED Qualifiers: Chronic kidney disease stage: stage 2 (mild) Qualified Code(s): N18.2 - Chronic kidney disease, stage 2 (mild) (8) HTN (hypertension) Code(s): I10 - ESSENTIAL (PRIMARY) HYPERTENSION Qualifiers: Hypertension type: essential hypertension Qualified Code(s): I10 - Essential (primary) hypertension (9) Hypercholesterolemia Code(s): E78.00 - PURE HYPERCHOLESTEROLEMIA, UNSPECIFIED (10) Osteoarthritis Assessment/Plan: chronic knee pains and decreased ROM. Code(s): M19.90 - UNSPECIFIED OSTEOARTHRITIS, UNSPECIFIED SITE Qualifiers: Osteoarthritis location: knee Osteoarthritis type: unspecified Laterality : right Qualified Code(s): M17.11 - Unilateral primary osteoarthritis, right knee (11) Renal dysfunction Code(s): N28.9 - DISORDER OF KIDNEY AND URETER, UNSPECIFIED
--- NOTE | 2018-08-14 11:27 | CONSULT ---
Admitting History and Physical - Primary Care Physician PCP: Radames Lawrence - Admission History of Present Illness: 88 y/o F with a PMHx of Anemia, HTN, HLD, DCHF, AF (on Eliquis), restless leg syndrome presented from home for acute hypoxia sats 88%, with progressively worsening SOB, and productive cough for the past week Per ID-08/13- Lethargic No complaints Breathing non-labored + cough noted Afebrile WBC WNL CHF Possible LLL pneumonia + Urine c/s = contamination PCN Selected Entries 08/12/18 08/12/18 08/13/18 14:00 19:51 02:00 Breakfast 75% Diet Tolerated Well Poor Supper 25% Temperature 97.9 F 08/13/18 08/13/18 08/13/18 06:00 07:31 17:00 Breakfast Diet Tolerated Supper Temperature 97.3 F L 97.3 F L 97.7 F 08/13/18 08/14/18 08/14/18 22:00 05:00 09:34 Breakfast Diet Tolerated Supper Temperature 97.7 F 97.5 F L 98 F 08/14/18 10:00 Breakfast 25% Diet Tolerated Poor Supper Temperature Laboratory Tests 08/10/18 08/14/18 20:50 05:30 WBC 11.1 H 8.7 This is my first consult with this pt. Pt's son reports declining memory over last couple of years. She had a recent cold and has had a persistent dry cough, unable to expectorate phlegm. O2 sat was in low 80's before admission, normally in mid 90's. History Source: Family Member, Medical Record Limitations to Obtaining History: Clinical Condition - Past Medical History Cardiovascular: Yes: AFIB (New onset), CHF (diastolic CHF per records), HTN, Hyperlipdemia ...: No Heme/Onc: Yes: Anemia Musculoskeletal: Yes: Osteoarthritis - Past Surgical History Past Surgical History: Yes: Hysterectomy - Advance Directives Advance Directives: Yes: DNR - Smoking History Smoking history: Never smoked Have you smoked in the past 12 months: No Aproximately how many cigarettes per day: 0 - Alcohol/Substance Use Hx Alcohol Use: No History of Substance Use: reports: None History - Admission Reason For Visit: SOB/HYPOXIA/ELEV BRAIN NEUTROIURETIC PEP - Diagnostics X-ray: Report Reviewed CT Scan: Report Reviewed Other: Report Reviewed (Normal EGD 2017) - General Mental Status: Awake and Alert, Able to Follow Commands, Forgetful Attention: Distractible, Mild Impairment Ability to Follow Directions: Fair Head/Neck Control: Fair - Hearing Hearing: Impaired (suspected) Speech Evaluation - Communication Primary Language: LIBYAN Communication: Yes: Within Normal Limits, Simple Responses - Speech Characteristics Voice Loudness: Mildly Soft/Quiet Voice Phonatory-based Quality: Yes: Dysphonia (cough,congestion) - Language/Auditory Comprehension Follows: Yes: 1 Stage Simple Commands - Swallow Evaluation/Bedside Assessment Current Nutritional Intake: Regular, Thin Liquids Dentition: Yes: Edentulous (lower), Dental Appliance Upper Facial Symmetry at Rest: Symmetrical Lingual Movement: Symmetric Laryngeal Movement: Labored,delay initiation Bolus Size: Small Labial Seal: Impaired Bilaterally (weak. drools with cup of water with reduced bilabial seal) Chewing: Impaired Oral Prep Time: Increased Timing of Swallow: Delayed Coughing/Throat Clear: Yes (noted to cough on thin liquid) Recommendations - Speech Evaluation, Impression/Plan Impression: Dyspnea. Limited dentition. Delayed swallow. Aspiration can not be r /o at bedside,however, SOB increases risk. - Disposition Discharge to: To be Determined - Dysphagia Impressions/Plan Dysphagia Impressions: Ongoing Evaluation *Silent aspiration: cannot be R/O at bedside Recommendations: Modified Barium Swallow (If aspiration is suspected) - Recommendations Diet Consistency: Dysphagia Pureed Medication Administration: Crushed with applesauce Liquids: Oak Level Thick Supplement: Magic Cup, Ensure Pudding, Other (Ensure Compact)
--- NOTE | 2018-08-14 11:58 | PN ---
Progress Note (short form) - Note Progress Note: PULMONARY CONSULTATION DICTATED 06/14/18 IMP ACUTE HYPOXEMIC/HYPERCAPNEIC RESPIRATORY FAILURE ACUTE ON CHRONIC CHF PULMONARY HTN ? PNEUMONIA LEFT LUNG OPACIFICATION AFIB H/O HTN HLD RESTLESS LEG SYNDROME PLAN INHALED BRONCHODILATORS LASIX OER CARDIOLOGY ABX PER ID O2 TO MAINTAIN O2 SAT >92% NIPPV IF PT DEVELOPES INCREASED RESPIRATORY DISTRESS CHEST CT THORACENTESIS IF LARGE EFUUSION NOTED ON CHEST CT F/U ABGS DR GODDARD Problem List - Problems (1) Acute on chronic diastolic (congestive) heart failure Code(s): I50.33 - ACUTE ON CHRONIC DIASTOLIC (CONGESTIVE) HEART FAILURE (2) Acute on chronic systolic (congestive) heart failure Code(s): I50.23 - ACUTE ON CHRONIC SYSTOLIC (CONGESTIVE) HEART FAILURE (3) Elevated brain natriuretic peptide (BNP) level Code(s): R79.89 - OTHER SPECIFIED ABNORMAL FINDINGS OF BLOOD CHEMISTRY (4) Shortness of breath Code(s): R06.02 - SHORTNESS OF BREATH (5) HTN (hypertension) Code(s): I10 - ESSENTIAL (PRIMARY) HYPERTENSION Qualifiers: Hypertension type: essential hypertension Qualified Code(s): I10 - Essential (primary) hypertension (6) Hypercholesterolemia Code(s): E78.00 - PURE HYPERCHOLESTEROLEMIA, UNSPECIFIED (7) Osteoarthritis Code(s): M19.90 - UNSPECIFIED OSTEOARTHRITIS, UNSPECIFIED SITE Qualifiers: Osteoarthritis location: knee Osteoarthritis type: unspecified Laterality : right Qualified Code(s): M17.11 - Unilateral primary osteoarthritis, right knee (8) Acute respiratory failure with hypoxia and hypercapnia Code(s): J96.01 - ACUTE RESPIRATORY FAILURE WITH HYPOXIA; J96.02 - ACUTE RESPIRATORY FAILURE WITH HYPERCAPNIA (9) Pleural effusion Code(s): J90 - PLEURAL EFFUSION, NOT ELSEWHERE CLASSIFIED
--- NOTE | 2018-08-14 12:31 | CONS ---
DATE OF CONSULTATION: 08/14/2018 PULMONARY CONSULTATION REFERRING PHYSICIAN: Dr. Jameson History obtained from patient's son. Patient is an 88-year-old white female with a past medical history of diastolic congestive heart failure, hypertension, hyperlipidemia, iron deficiency anemia, dysphagia, osteoarthritis, atrial fibrillation maintained on Eliquis, restless leg syndrome, admitted to [facility] due to hypoxemia, shortness of breath, cough, and chest congestion. Patient son states for the past week and a half his mother was getting progressively weaker. She also complained of shortness of breath. He took a pulse oximetry at home an it was about 82% at which time presented to the emergency room. There was also complaint of cough productive of green sputum. She also had occ wheezing. Of note, according to the son, he and his mother had a URI last week and at that time developed more shortness of breath. She was admitted with the above. On admission she was felt to have possible CHF, she was evaluated by Dr. Grissom for cardiology consultation. Of note, during hospitalization patient has remained hypoxic requiring O2. She had a followup x-ray which revealed increasing left lung opacification. Patient has a history of tobacco use apparently years ago. There is no apparent history of occupational exposure to chemical fumes, and there is no history of COPD, asthma, or bronchitis in the past. There is no history of recent travel. According to the patient's son , the patient has a pulse oximetry at home, because the mother occasionally complains of shortness of breath, and her O2 saturations are usually in the mid-90s on room air. PAST MEDICAL HISTORY: Again includes atrial fibrillation, congestive heart failure, dementia, hyperlipidemia, hypertension, anemia, osteoarthritis, chronic kidney disease, restless leg syndrome. REVIEW OF SYSTEMS: Unable to obtain from the patient secondary to dementia. CURRENT MEDICATIONS: Include Colace, Requip, Lipitor, Lasix IV, Eliquis, Levaquin, Toprol, Timoptic, and Cardizem. PHYSICAL EXAMINATION: General: Patient is an elderly white female, thin, well-developed, awake, mildly congested, mildly dyspneic. Vital Signs: She is currently afebrile, heart rate is 120, blood pressure is 90 /50, respiratory rate is 24, and O2 saturation is 81% on 92% on 3 L. HEENT: Exam is normocephalic, atraumatic. Neck: Supple. Heart: Irregular, S1, S2. Chest: Crackles bilaterally. Diminished breath sounds on the left at 2/3 up. Abdomen: Soft. Bowel sounds positive. Extremities: Trace bilateral lower extremity edema. LABORATORIES: WBC is 8.7, hemoglobin 10.3, hematocrit 32.1, with a platelet count 295,000. INR is 1.14. Blood gas with pH 7.33, PCO2 is 60, PO2 of 104, bicarbonate 31, saturation of 98, that was on 2 L. Chemistry with BUN 21, creatinine 1.3. Chest x-ray reveals increased opacification of left hemithorax. IMPRESSION: Acute hypoxemic hypercapnic respiratory failure secondary to multiple factors: 1. Acute on chronic congestive heart failure. 2. Possible pneumonia. 3. Large left lung opacification, possible effusion versus atelectasis. 4. Atrial fibrillation. 5. History of hypertension. 6. Hyperlipidemia. 7. Anemia. PLAN: Inhaled bronchodilator. Supplemental O2. BiPAP if patient develops increasing respiratory distress. Obtain CT scan of chest to further evaluate left lung opacification. Thoracentesis if the patient is noted to have large pleural effusion. Chest PT. Antibiotics as per Infectious Disease. Followup chest x-rays. Followup arterial blood gases. Obtain cultures. Also aspiration precautions. CLOVIS GODDARD M.D. [id number] MTDD
[2018-08-14] MEDS: LEVALBUTEROL HCL 0.63 MG/3 ML VIAL.NEB. IH SCH ×2 (15:28→21:33)
[2018-08-14] MEDS: FUROSEMIDE 40 MG/4 ML INJECTABLE VIAL IVPUSH SCH (17:10)
--- NOTE | 2018-08-14 18:35 | PN ---
Physical Exam: SUBJECTIVE: Patient seen and examined this morning at bedside. Patient desaturated to 89-90% as per nursing overnight. Continues to have cough accompanied by congestion. Denies fevers, chills, chest pain, SOB, nausea, vomiting. OBJECTIVE: Vital Signs Period Temp Pulse Resp BP Sys/Kraus Pulse Ox Last 24 Hr 97.5 F-98 F 93-120 20-24 90-137/48-75 92-93 GENERAL: A&Ox3, NAD HEAD: NCAT EYES: PERRL, EOMI ENT: Hard of hearing, oropharynx clear without exudates, moist mucous membranes NECK: supple, +JVD LUNGS: Bibasalar crackles, Scattered wheezes HEART: Regular rate and rhythm, normal S1 and S2 ABDOMEN: Soft, nontender, not distended, + bowel sounds, no guarding EXTREMITIES: 2+ pulses, 2+ pitting edema b/l NEUROLOGICAL: Cranial nerves II-XII intact. Normal speech SKIN: Warm, dry, no rashes or lesions noted Laboratory Results - last 24 hr 08/14/18 08/14/18 05:30 05:30 WBC 8.7 RBC 3.68 Hgb 10.3 L Hct 32.1 L MCV 87.3 MCH 28.0 MCHC 32.0 RDW 20.2 H Plt Count 295 MPV 7.5 Absolute Neuts (auto) 6.3 Neutrophils % 72.4 Lymphocytes % 10.0 Monocytes % 16.1 H Eosinophils % 1.2 Basophils % 0.3 Nucleated RBC % 0 Sodium 139 Potassium 3.6 Chloride 97 L Carbon Dioxide 30 Anion Gap 11 BUN 21 H Creatinine 1.3 Creat Clearance w eGFR 38.57 Random Glucose 60 L Calcium 8.8 Phosphorus 3.2 Magnesium 1.8 Total Bilirubin 0.8 AST 22 ALT 21 Alkaline Phosphatase 81 Total Protein 5.9 L Albumin 2.8 L Microbiology 08/10/18 20:00 Blood - Peripheral Venous Blood Culture - Preliminary NO GROWTH OBTAINED AFTER 72 HOURS, INCUBATION TO CONTINUE FOR 2 DAYS. 08/10/18 20:50 Blood - Peripheral Venous Blood Culture - Preliminary NO GROWTH OBTAINED AFTER 72 HOURS, INCUBATION TO CONTINUE FOR 2 DAYS. 08/10/18 21:50 Urine - Urine Clean Catch Urine Culture - Final Escherichia Coli Group D Strep Or Entero Coccus 08/11/18 10:41 Urine For Antigen Detection Legionella Antigen - Final 08/11/18 10:41 Urine For Antigen Detection Streptococcus pneumoniae Antigen (M - Final 08/11/18 03:51 Nasopharyngeal Swab Respiratory Syncytial Virus Ag - Final 08/11/18 03:51 Nasopharyngeal Swab Influenza Types A,B Antigen - Final 08/11/18 03:51 Nasopharyngeal Swab - Final Active Medications Apixaban (Eliquis -) 2.5 mg PO BID [facility] Last Admin: 08/14/18 09:40 Dose: 2.5 mg Atorvastatin Calcium (Lipitor -) 10 mg PO HS [facility] Last Admin: 08/13/18 22:37 Dose: 10 mg Diltiazem HCl (Cardizem -) 90 mg PO BID [facility] Last Admin: 08/14/18 09:46 Dose: 90 mg Docusate Sodium (Colace -) 100 mg PO DAILY [facility] Last Admin: 08/14/18 09:40 Dose: 100 mg Furosemide (Lasix Injection -) 40 mg IVPUSH DAILY [facility] Last Admin: 08/14/18 17:10 Dose: 40 mg Guaifenesin/Codeine Phosphate (Robitussin Ac -) 5 ml PO TID PRN PRN Reason: COUGH Last Admin: 08/13/18 22:39 Dose: 5 ml Levofloxacin (Levaquin 250 Mg Premixed Ivpb -) 250 mg in 50 mls @ 50 mls/hr IVPB DAILY [facility]; Protocol Last Admin: 08/14/18 09:41 Dose: 50 mls/hr Levalbuterol HCl (Xopenex) 0.63 mg IH RTID [facility] Last Admin: 08/14/18 15:28 Dose: 0.63 mg Metoprolol Succinate (Toprol Xl -) 25 mg PO DAILY [facility] Last Admin: 08/14/18 09:40 Dose: 25 mg Ropinirole HCl (Requip -) 1 mg PO DAILY [facility] Last Admin: 08/14/18 09:41 Dose: 1 mg Timolol Maleate (Timoptic 0.5%) 1 drop OU BID [facility] Last Admin: 08/14/18 09:41 Dose: 1 drop IMAGING: -CXR (08/10): Imaging reveals a large heart, sclerotic knob, congestive changes and questionable left base infiltrate. Follow-up recommended -CXR (08/13): Increased opacification of the left hemithorax attributed to the pleural effusion, left lung atelectasis shift of mediastinal structures to the left side. Normal aeration of the lung right lung. No pneumothorax or large pleural effusion is seen. Clinically correlate for malignant process. -US Duplex 2 Legs: No DVT is identified involving either leg. Please see above. -EKG: ATRIAL FIBRILLATION WITH RAPID VENTRICULAR RESPONSE WITH PREMATURE VENTRICULAR OR ABERRANTLY CONDUCTED COMPLEXES, LEFT AXIS DEVIATION, QTc 482 -ECHO: LV systolic function is mildly reduced. Mild anterior wall hypokinesis. LA is moderately dilated, RA is mildly dilated. Mild MR, Moderate TR. Mild Pulmonic Valvular regurg, Small pericardial effusion. Pleural effusion present. -CT Chest without contrast: Bibasal consolidation and calcification the left upper lobe compatible with pneumonia. Small to moderate left and small right pleural effusion. Close follow-up CT scan of the chest in one to 2 weeks is recommended to assess 40 clearing of airspace disease and to rule out any underlying pathology. Multiple gallstones are present. ASSESSMENT/PLAN: 88 y/o F with a PMHx of Anemia, HTN, HLD, DCHF, AF (on Eliquis), restless leg syndrome presented from home for acute hypoxia sats 88%, with progressively worsening SOB, and productive cough for the past week as per son at bedside. 1. Acute hypoxic respiratory failure -Likely due to CHF exacerbation in the setting of URTI -Flu Swab, RSV, Urine legionella and strep negative -Continue IV Lasix 40mg -Strict I&Os, Daily weights -Fluid restriction < 1L/day -Supplemental O2 to maintain sats >90% -ECHO: LV systolic function is mildly reduced. Mild anterior wall hypokinesis. Small pericardial effusion. Pleural effusion present. -Cardiology (Dr Zavala) consulted, appreciate rec's, Continue Cardizem, Continue Eliquis, Continue IV Lasix Goal BP < 140/90, Begin Metoprolol tartrate 12.5 mg BID, Can Convert to Toprol XL 25mg daily prior to discharge if remains well controlled. -Monitor on Tele for another 24 hours -CXR (08/10): Congestive changes and questionable left base infiltrate -Repeat CXR noted above -CT Chest: Bibasal consolidation and calcification the left upper lobe compatible with pneumonia. Small to moderate left and small right pleural effusion. -Pulmonology (Dr. Willoughby) Consulted, Appreciate rec's, Inhaled bronchodilators, NIPPV 2. Sepsis -Likely 2/2 CAP Atypical PNA -On admission was tachycardic 123, tachypnic 24, LA 2.4, WBC 11.1; Tachycardia and tachypnea have resolved, WBC 8.5, LA 1.2 -ID (Dr. Sousa) consulted, appreciate rec's -Continue Levaquin (Started on 08/10) -Urine cultures noted above, likely contaminanted 3. Transient Bradycardia -Tele strip reveals episodes of HR < 40 -Diltiazem dose reduced to 90mg BID (previously 120mg BID) -Started on Toprol Xl 25 mg daily 4. Hyponatremia -Likely due to volume overload, Improved -TSH, Free T4 noted, Low T3 5. Leg edema -In the setting of fluid overload and recent immobility -US Duplex 2 Legs: No DVT is identified involving either leg. Please see above. -Continue IV Lasix 40mg 6. HTN -Cardiology (Dr Zavala) consulted, appreciate rec's, Goal BP < 140/90 (CKD): d/c hydralazine for now as beta rei introduced. Given episode of relative hypotension, will d/c hydralazine and observe BP trend. -Continue Diltiazem, Lasix, Lopressor; Hydralazine d/c'ed 7. Hx of HLD -Continue Lipitor 10 mg HS 8. Hx of Atrial fibrillation -Continue rate control with Diltiazem (Reduced dose) -Started on Toprol Xl 25 mg daily -Continue Eliquis 2.5mg BID 9. FEN -PO fluids -Continue to monitor for hyponatremia -Dysphagia Pureed diet, [place] Thick liquids, Magic Cup, Ensure Pudding 10. PPx -DVT: On home dose Eliquis Dispo:Tele inpatient Visit type - Emergency Visit Emergency Visit: Yes ED Registration Date: 08/10/18 Care time: The patient presented to the Emergency Department on the above date and was hospitalized for further evaluation of their emergent condition. - New Patient This patient is new to me today: No - Critical Care Critical Care patient: No
--- NOTE | 2018-08-14 19:00 | PN ---
Teaching Attending Note Name of Resident: Margareth De Souza ATTENDING PHYSICIAN STATEMENT I saw and evaluated the patient. I reviewed the resident's note and discussed the case with the resident. I agree with the resident's findings and plan as documented. SUBJECTIVE: Seen and examined; still c/o SOB on 3L O2. Mixed respiratory failure with multiple contributing factors including JASBIR PNA, CHF, Pulmonary HTN. She is being seen by CV, ID, and now Pulmonary. She is protecting airway and mentating. Appreciate information systems consultant input. OBJECTIVE: VSS, labs reviewed Gen: AAOx3, NAD Lungs: Less air movement on the L with coarse rales, R-side with lesser rales GI: NT ND +BS CV: irreg irreg with no new mgr Skin: Thin, no rashes or abrasions ASSESSMENT AND PLAN: 1) Mixed Acute respiratory failure -Due to PNA, Pulm HTN, diastolic HF 2) Acute on Chronic mixed CHF exacerbation -Continue with diuresis, etc. per cardiology. -Increased size of effusion L>R on XR but b/l and not ideal for thoracentesis -Control rate; added lopressor 25 back today -Continue to hold hydralazine 3) Transient Bradycardia -Decreased dose of dilt; followup tele. Improved today 4) Afib with RVR -Changes in #2/3; continuing other meds. Control rate to not precipitate rate related fluid overload 5) CAP -Continue with levaquin per ID; confirmed on CT that was done today 6) CKD -Monitor and trend 7) Likely contaminated ucx; will address if no improvement with optimizing management of other issues DNR/I
[2018-08-14] MEDS: ATORVASTATIN CA 10 MG TABLET (FP) PO SCH (21:42)
[2018-08-14] MEDS: guaiFENesin/CODEINE 5 ML UNIT-DOSE CUPS PO PRN (21:51)
[2018-08-15 07:13] LABS: BASO % 0.4 % (0-2.0); EOS % 0.8 % (0-4.5); HEMATOCRIT 30.6 % (32.4-45.2); HEMOGLOBIN 9.6 GM/dL (10.7-15.3); LYMPH % 13.8 % (8-40); MCH 27.5 pg (25.7-33.7); MCHC 31.3 g/dl (32.0-36.0); MEAN CELL VOLUME 87.9 fl (80-96); MEAN PLT VOLUME 7.2 fl (7.5-11.1); MONO % 20.5 % (3.8-10.2); NEUT % 64.5 % (42.8-82.8); PLATELET COUNT 268 K/MM3 (134-434); RBC 3.48 M/mm3 (3.60-5.2); RDW 20.1 % (11.6-15.6); WHITE BLOOD COUNT 8.2 K/mm3 (4.0-10.0)
[2018-08-15] MEDS: LEVALBUTEROL HCL 0.63 MG/3 ML VIAL.NEB. IH SCH ×3 (07:35→20:45)
[2018-08-15 07:43] LABS: ALBUMIN 2.5 g/dl (3.4-5.0); ALK PHOS 69 U/L (45-117); ANION GAP 5 MMOL/L (8-16); BILIRUBIN,TOTAL 0.7 mg/dL (0.2-1); BLOOD UREA NITROGEN 24 mg/dL (7-18); CALCIUM 8.6 mg/dL (8.5-10.1); CHLORIDE 99 mmol/L (98-107); CO2 33 mmol/L (21-32); CREATININE 1.4 mg/dL (0.55-1.3); GLUCOSE,RANDOM 75 mg/dL (74-106); MAGNESIUM 1.8 mg/dL (1.8-2.4); PHOSPHOROUS 3.6 mg/dL (2.5-4.9); POTASSIUM 3.5 mmol/L (3.5-5.1); SGOT/AST 19 U/L (15-37); SGPT/ALT 18 U/L (13-61); SODIUM 137 mmol/L (136-145); TOT PROT 5.2 g/dl (6.4-8.2)
[2018-08-15] MEDS ORDERED: PT OWN MED DRAWER 7, Y5N ONE (07:51)
[2018-08-15] MEDS: FUROSEMIDE 40 MG/4 ML INJECTABLE VIAL IVPUSH SCH (09:49)
[2018-08-15] MEDS: dilTIAZem HCL 30 MG TABLET (FP) PO SCH ×2 (09:49→23:01)
[2018-08-15] MEDS: metoPROLOL SUCCINATE 25 MG TAB.SR.24H (FP) PO SCH (09:49)
[2018-08-15] MEDS: APIXABAN 2.5 MG TABLET PO SCH ×2 (09:49→23:01)
[2018-08-15] MEDS: DOCUSATE SODIUM 100 MG CAPSULE (FP) PO SCH (09:49)
[2018-08-15] MEDS: TIMOLOL 0.5% OPHTHALMIC SOL 5 ML BOTTLE OU SCH ×2 (09:51→23:01)
[2018-08-15] MEDS: rOPINIRole HCL 1 MG TABLET (FP) PO SCH (09:51)
--- NOTE | 2018-08-15 11:02 | PN ---
Progress Note, RULING TECHNICIAN - Note Progress Note: Selected Entries 08/15/18 08/15/18 08/15/18 01:20 06:00 08:45 Breakfast 75% Temperature 98.2 F 98 F 98.2 F Laboratory Tests 08/15/18 06:10 WBC 8.2 Cough, c/o "choking" which son reports is manager long term care and ongoing. Dys puree/nectar thick liquid.Tolerating diet.
--- NOTE | 2018-08-15 11:19 | PN ---
Progress Note, Physician History of Present Illness: pulmonary alert,c/o sob,o2 sat 95% on nasal cannula - Current Medication List Current Medications: Active Medications Apixaban (Eliquis -) 2.5 mg PO BID [facility] Last Admin: 08/15/18 09:49 Dose: 2.5 mg Atorvastatin Calcium (Lipitor -) 10 mg PO HS [facility] Last Admin: 08/14/18 21:42 Dose: 10 mg Diltiazem HCl (Cardizem -) 90 mg PO BID [facility] Last Admin: 08/15/18 09:49 Dose: 90 mg Docusate Sodium (Colace -) 100 mg PO DAILY [facility] Last Admin: 08/15/18 09:49 Dose: 100 mg Furosemide (Lasix Injection -) 40 mg IVPUSH DAILY [facility] Last Admin: 08/15/18 09:49 Dose: 40 mg Guaifenesin/Codeine Phosphate (Robitussin Ac -) 5 ml PO TID PRN PRN Reason: COUGH Last Admin: 08/14/18 21:51 Dose: 5 ml Levofloxacin (Levaquin 250 Mg Premixed Ivpb -) 250 mg in 50 mls @ 50 mls/hr IVPB DAILY [facility]; Protocol Last Admin: 08/15/18 09:50 Dose: 50 mls/hr Levalbuterol HCl (Xopenex) 0.63 mg IH RTID [facility] Last Admin: 08/15/18 07:35 Dose: Not Given Metoprolol Succinate (Toprol Xl -) 25 mg PO DAILY [facility] Last Admin: 08/15/18 09:49 Dose: 25 mg Ropinirole HCl (Requip -) 1 mg PO DAILY [facility] Last Admin: 08/15/18 09:51 Dose: 1 mg Timolol Maleate (Timoptic 0.5%) 1 drop OU BID [facility] Last Admin: 08/15/18 09:51 Dose: 1 drop - Objective Vital Signs: Vital Signs Temperature 98.2 F 08/15/18 08:45 Pulse Rate 101 H 08/15/18 08:45 Respiratory Rate 22 H 08/15/18 08:53 Blood Pressure 109/66 08/15/18 08:45 O2 Sat by Pulse Oximetry (%) 95 08/15/18 08:53 Constitutional: Yes: Well Nourished, Calm Eyes: Yes: WNL HENT: Yes: WNL Neck: Yes: WNL Cardiovascular: Yes: Pulse Irregular, S1, S2 Respiratory: Yes: Rales (scattered crackles tej) Gastrointestinal: Yes: Normal Bowel Sounds, Soft Extremities: Yes: WNL Edema: No Labs: CBC, BMP 08/15/18 06:10 08/15/18 06:10 INR, PTT INR 1.41 (0.83-1.09) H 08/10/18 21:40 - ....Imaging Cat Scan: Report Reviewed, Image Reviewed (BIBASAILAR CONSOLIDATIONS,SMALL TEJ PLEURAL EFFUSIONS,JASBIR CONSOLIDATION) Problem List - Problems (1) Acute on chronic diastolic (congestive) heart failure Code(s): I50.33 - ACUTE ON CHRONIC DIASTOLIC (CONGESTIVE) HEART FAILURE (2) Acute on chronic systolic (congestive) heart failure Code(s): I50.23 - ACUTE ON CHRONIC SYSTOLIC (CONGESTIVE) HEART FAILURE (3) Elevated brain natriuretic peptide (BNP) level Code(s): R79.89 - OTHER SPECIFIED ABNORMAL FINDINGS OF BLOOD CHEMISTRY (4) Shortness of breath Code(s): R06.02 - SHORTNESS OF BREATH (5) HTN (hypertension) Code(s): I10 - ESSENTIAL (PRIMARY) HYPERTENSION Qualifiers: Hypertension type: essential hypertension Qualified Code(s): I10 - Essential (primary) hypertension (6) Hypercholesterolemia Code(s): E78.00 - PURE HYPERCHOLESTEROLEMIA, UNSPECIFIED (7) Osteoarthritis Code(s): M19.90 - UNSPECIFIED OSTEOARTHRITIS, UNSPECIFIED SITE Qualifiers: Osteoarthritis location: knee Osteoarthritis type: unspecified Laterality : right Qualified Code(s): M17.11 - Unilateral primary osteoarthritis, right knee (8) Acute respiratory failure with hypoxia and hypercapnia Code(s): J96.01 - ACUTE RESPIRATORY FAILURE WITH HYPOXIA; J96.02 - ACUTE RESPIRATORY FAILURE WITH HYPERCAPNIA (9) Pleural effusion Code(s): J90 - PLEURAL EFFUSION, NOT ELSEWHERE CLASSIFIED Assessment/Plan IMP ACUTE HYPOXEMIC/HYPERCAPNEIC RESPIRATORY FAILURE ACUTE ON CHRONIC CHF PULMONARY HTN PNEUMONIA AFIB H/O HTN HLD RESTLESS LEG SYNDROME PLAN INHALED BRONCHODILATORS LASIX PER CARDIOLOGY INHALED BRONCHODILATORS ABX PER ID O2 TO MAINTAIN O2 SAT >92% NIPPV IF PT DEVELOPES INCREASED RESPIRATORY DISTRESS F/U ABGS CHEST PT DR GODDARD Problem List - Problems (1) Acute on chronic diastolic (congestive) heart failure Code(s): I50.33 - ACUTE ON CHRONIC DIASTOLIC (CONGESTIVE) HEART FAILURE (2) Acute on chronic systolic (congestive) heart failure Code(s): I50.23 - ACUTE ON CHRONIC SYSTOLIC (CONGESTIVE) HEART FAILURE (3) Elevated brain natriuretic peptide (BNP) level Code(s): R79.89 - OTHER SPECIFIED ABNORMAL FINDINGS OF BLOOD CHEMISTRY (4) Shortness of breath Code(s): R06.02 - SHORTNESS OF BREATH (5) HTN (hypertension) Code(s): I10 - ESSENTIAL (PRIMARY) HYPERTENSION Qualifiers: Hypertension type: essential hypertension Qualified Code(s): I10 - Essential (primary) hypertension (6) Hypercholesterolemia Code(s): E78.00 - PURE HYPERCHOLESTEROLEMIA, UNSPECIFIED (7) Osteoarthritis Code(s): M19.90 - UNSPECIFIED OSTEOARTHRITIS, UNSPECIFIED SITE Qualifiers: Osteoarthritis location: knee Osteoarthritis type: unspecified Laterality : right Qualified Code(s): M17.11 - Unilateral primary osteoarthritis, right knee (8) Acute respiratory failure with hypoxia and hypercapnia Code(s): J96.01 - ACUTE RESPIRATORY FAILURE WITH HYPOXIA; J96.02 - ACUTE RESPIRATORY FAILURE WITH HYPERCAPNIA (9) Pleural effusion Code(s): J90 - PLEURAL EFFUSION, NOT ELSEWHERE CLASSIFIED
[2018-08-15] MEDS ORDERED: ALBUTEROL SO4 0.083% IH SOL 2.5 MG/3 ML VIAL.NEB. NEB PRN (11:25)
--- NOTE | 2018-08-15 12:15 | PN ---
Progress Note, Physician History of Present Illness: 87 yo F with a h/o Anemia, HTN, HLD, OA, Diastolic Congestive heart failure, CKD stage III, Atrial fibrillation (Eliquis), restless leg syndrome who p/w SOB. Per patient son at bedside and primary caregiver, pt. has been experiencing cough, with green sputum production x 1 week, with progressive wheezing, and SOB. Son also reports 2 weeks of worsening mental status and night time confusion. + chronic leg swelling, and orthopnea. No home O2 requirements. Patient denies N/V, F/C, Palpitations, CP, SOB, urinary complaints, abdominal pain, diarrhea, constipation, lightheadedness, weakness, sensory changes. PMHx: as noted above ROS: as noted SHx: Denies tobacco use, IVDA, Etoh Allergies: NKDA - Current Medication List Current Medications: Active Medications Albuterol Sulfate (Ventolin 0.083% Nebulizer Soln -) 1 amp NEB Q4H PRN PRN Reason: SHORT OF BREATH/WHEEZING Apixaban (Eliquis -) 2.5 mg PO BID [facility] Last Admin: 08/15/18 09:49 Dose: 2.5 mg Atorvastatin Calcium (Lipitor -) 10 mg PO HS [facility] Last Admin: 08/14/18 21:42 Dose: 10 mg Diltiazem HCl (Cardizem -) 90 mg PO BID [facility] Last Admin: 08/15/18 09:49 Dose: 90 mg Docusate Sodium (Colace -) 100 mg PO DAILY [facility] Last Admin: 08/15/18 09:49 Dose: 100 mg Furosemide (Lasix Injection -) 40 mg IVPUSH DAILY [facility] Last Admin: 08/15/18 09:49 Dose: 40 mg Guaifenesin/Codeine Phosphate (Robitussin Ac -) 5 ml PO TID PRN PRN Reason: COUGH Last Admin: 08/14/18 21:51 Dose: 5 ml Levofloxacin (Levaquin 250 Mg Premixed Ivpb -) 250 mg in 50 mls @ 50 mls/hr IVPB DAILY [facility]; Protocol Last Admin: 08/15/18 09:50 Dose: 50 mls/hr Levalbuterol HCl (Xopenex) 0.63 mg IH RTID [facility] Last Admin: 08/15/18 07:35 Dose: Not Given Metoprolol Succinate (Toprol Xl -) 25 mg PO DAILY [facility] Last Admin: 08/15/18 09:49 Dose: 25 mg Ropinirole HCl (Requip -) 1 mg PO DAILY [facility] Last Admin: 08/15/18 09:51 Dose: 1 mg Timolol Maleate (Timoptic 0.5%) 1 drop OU BID [facility] Last Admin: 08/15/18 09:51 Dose: 1 drop - Objective Vital Signs: Vital Signs Temperature 98.2 F 08/15/18 08:45 Pulse Rate 101 H 08/15/18 08:45 Respiratory Rate 22 H 08/15/18 08:53 Blood Pressure 109/66 08/15/18 08:45 O2 Sat by Pulse Oximetry (%) 95 08/15/18 08:53 Eyes: Yes: WNL, Conjunctiva Clear, EOM Intact HENT: Yes: WNL, Atraumatic, Normocephalic Neck: Yes: WNL, Supple, Trachea Midline Cardiovascular: Yes: WNL, Regular Rate and Rhythm Respiratory: Yes: WNL, Regular, CTA Bilaterally Gastrointestinal: Yes: WNL, Normal Bowel Sounds Genitourinary: Yes: WNL Musculoskeletal: Yes: WNL Extremities: Yes: WNL Edema: No Integumentary: Yes: WNL Neurological: Yes: WNL, Alert, Oriented ...Motor Strength: WNL Psychiatric: Yes: WNL Labs: CBC, BMP 08/15/18 06:10 08/15/18 06:10 INR, PTT INR 1.41 (0.83-1.09) H 08/10/18 21:40 Problem List - Problems (1) Acute on chronic diastolic (congestive) heart failure Code(s): I50.33 - ACUTE ON CHRONIC DIASTOLIC (CONGESTIVE) HEART FAILURE (2) Elevated brain natriuretic peptide (BNP) level Code(s): R79.89 - OTHER SPECIFIED ABNORMAL FINDINGS OF BLOOD CHEMISTRY (3) Hypoxia Code(s): R09.02 - HYPOXEMIA (4) Shortness of breath Code(s): R06.02 - SHORTNESS OF BREATH (5) Haseq-en-uatfwre kidney injury Code(s): N17.9 - ACUTE KIDNEY FAILURE, UNSPECIFIED; N18.9 - CHRONIC KIDNEY DISEASE, UNSPECIFIED Qualifiers: Acute renal failure type: unspecified (6) Allergic reaction Code(s): T78.40XA - ALLERGY, UNSPECIFIED, INITIAL ENCOUNTER Qualifiers: Encounter type: initial encounter Qualified Code(s): T78.40XA - Allergy, unspecified, initial encounter (7) Atrial fibrillation with RVR Code(s): I48.91 - UNSPECIFIED ATRIAL FIBRILLATION (8) Atrial flutter with rapid ventricular response Code(s): I48.92 - UNSPECIFIED ATRIAL FLUTTER (9) Back pain Code(s): M54.9 - DORSALGIA, UNSPECIFIED (10) Dehydration Code(s): E86.0 - DEHYDRATION (11) Diastolic dysfunction Code(s): I51.9 - HEART DISEASE, UNSPECIFIED (12) History of dyspnea Code(s): Z87.09 - PERSONAL HISTORY OF OTHER DISEASES OF THE RESPIRATORY SYSTEM (13) Leukocytosis Code(s): D72.829 - ELEVATED WHITE BLOOD CELL COUNT, UNSPECIFIED Qualifiers: Leukocytosis type: unspecified Qualified Code(s): D72.829 - Elevated white blood cell count, unspecified (14) Paroxysmal atrial fibrillation Code(s): I48.0 - PAROXYSMAL ATRIAL FIBRILLATION (15) Pericardial effusion Code(s): I31.3 - PERICARDIAL EFFUSION (NONINFLAMMATORY) (16) Pneumonia Code(s): J18.9 - PNEUMONIA, UNSPECIFIED ORGANISM Qualifiers: Pneumonia type: due to unspecified organism Laterality: left (17) Sepsis Code(s): A41.9 - SEPSIS, UNSPECIFIED ORGANISM (18) Sinus bradycardia Code(s): R00.1 - BRADYCARDIA, UNSPECIFIED (19) Chronic kidney disease Code(s): N18.9 - CHRONIC KIDNEY DISEASE, UNSPECIFIED Qualifiers: Chronic kidney disease stage: stage 2 (mild) Qualified Code(s): N18.2 - Chronic kidney disease, stage 2 (mild) (20) HTN (hypertension) Code(s): I10 - ESSENTIAL (PRIMARY) HYPERTENSION Qualifiers: Hypertension type: essential hypertension Qualified Code(s): I10 - Essential (primary) hypertension (21) Hypercholesterolemia Code(s): E78.00 - PURE HYPERCHOLESTEROLEMIA, UNSPECIFIED (22) Osteoarthritis Code(s): M19.90 - UNSPECIFIED OSTEOARTHRITIS, UNSPECIFIED SITE Qualifiers: Osteoarthritis location: knee Osteoarthritis type: unspecified Laterality : right Qualified Code(s): M17.11 - Unilateral primary osteoarthritis, right knee Assessment/Plan - Problems (1) Acute on chronic systolic (congestive) heart failure Assessment/Plan: On metoprolol and furosemide. Start ACEI or ARB if renal function improves. F/u BUn/Cr, electrolytes, daily weight, electrolytes. Code(s): I50.23 - ACUTE ON CHRONIC SYSTOLIC (CONGESTIVE) HEART FAILURE (2) Malignancy Assessment/Plan: r/o lung malignancy: ateletasis, pleural effusion, mediastinal stricutres left- sided. f/u with painter aircraft. Code(s): C80.1 - MALIGNANT (PRIMARY) NEOPLASM, UNSPECIFIED (3) Elevated brain natriuretic peptide (BNP) level Code(s): R79.89 - OTHER SPECIFIED ABNORMAL FINDINGS OF BLOOD CHEMISTRY (4) Paroxysmal atrial fibrillation Code(s): I48.0 - PAROXYSMAL ATRIAL FIBRILLATION well rate controlled - will d/ c telemetry (5) Pericardial effusion Code(s): I31.3 - PERICARDIAL EFFUSION (NONINFLAMMATORY) (6) Pneumonia Code(s): J18.9 - PNEUMONIA, UNSPECIFIED ORGANISM Qualifiers: Pneumonia type: due to unspecified organism Laterality: left (7) Chronic kidney disease Code(s): N18.9 - CHRONIC KIDNEY DISEASE, UNSPECIFIED Qualifiers: Chronic kidney disease stage: stage 2 (mild) Qualified Code(s): N18.2 - Chronic kidney disease, stage 2 (mild) (8) HTN (hypertension) Code(s): I10 - ESSENTIAL (PRIMARY) HYPERTENSION Qualifiers: Hypertension type: essential hypertension Qualified Code(s): I10 - Essential (primary) hypertension (9) Hypercholesterolemia Code(s): E78.00 - PURE HYPERCHOLESTEROLEMIA, UNSPECIFIED (10) Osteoarthritis Assessment/Plan: chronic knee pains and decreased ROM. Code(s): M19.90 - UNSPECIFIED OSTEOARTHRITIS, UNSPECIFIED SITE Qualifiers: Osteoarthritis location: knee Osteoarthritis type: unspecified Laterality : right Qualified Code(s): M17.11 - Unilateral primary osteoarthritis, right knee (11) Renal dysfunction Code(s): N28.9 - DISORDER OF KIDNEY AND URETER, UNSPECIFIED
[2018-08-15 13:50] LABS: ANISOCYTOSIS 0; MACROCYTOSIS 0; PLATELET ESTIMATE NORMAL
[2018-08-15] MEDS ORDERED: POTASSIUM CHLORIDE ORAL LIQUID 20 MEQ/15 ML PO ONE (14:26)
--- NOTE | 2018-08-15 14:26 | PN ---
Teaching Attending Note Name of Resident: Brenda Jameson ATTENDING PHYSICIAN STATEMENT I saw and evaluated the patient. I reviewed the resident's note and discussed the case with the resident. I agree with the resident's findings and plan as documented with exceptions below. SUBJECTIVE: Patient seen and examined, still with dyspnea, denies any chest pain, reports fatigue, but no specific complaints. OBJECTIVE: Vital Signs Period Temp Pulse Resp BP Sys/Kraus Pulse Ox Last 24 Hr 97.7 F-98.8 F 88-111 17-22 103-139/49-82 95-96 Intake & Output 08/12/18 08/13/18 08/14/18 08/15/18 23:59 23:59 23:59 23:59 Intake Total 470 190 250 90 Balance 470 190 250 90 Weight 148 lb 3.2 oz 147 lb 8 oz 147 lb 3.2 oz 146 lb 14.4 oz General: sitting in bed, weak looking but no acute distress CVS:S1S2 irregular Chest: poor effort , basilar rales, limited exam Abdomen:Soft, Obese, NT Extremities: 1+ pedal edema Home Medications Medication Instructions Recorded Ropinirole HCl [Requip] 1 mg PO DAILY 04/10/17 Simvastatin 20 mg PO DAILY 04/10/17 Timolol 0.5% [Timoptic 0.5%] 1 drop OU BID 04/10/17 Apixaban [Eliquis] 2.5 mg PO BID #28 tablet 04/14/17 Allopurinol [Zyloprim -] 100 mg PO DAILY 09/25/17 Hydralazine HCl 10 mg PO BID 03/20/18 Allopurinol 100 mg PO DAILY 08/10/18 Diltiazem [Cardizem -] 120 mg PO BID 08/10/18 Docusate Sodium [Colace] 100 mg PO DAILY 08/10/18 Ropinirole HCl [Requip] 1 mg PO DAILY 08/10/18 Active Medications Albuterol Sulfate (Ventolin 0.083% Nebulizer Soln -) 1 amp NEB Q4H PRN PRN Reason: SHORT OF BREATH/WHEEZING Apixaban (Eliquis -) 2.5 mg PO BID [facility] Last Admin: 08/15/18 09:49 Dose: 2.5 mg Atorvastatin Calcium (Lipitor -) 10 mg PO HS [facility] Last Admin: 08/14/18 21:42 Dose: 10 mg Diltiazem HCl (Cardizem -) 90 mg PO BID [facility] Last Admin: 08/15/18 09:49 Dose: 90 mg Docusate Sodium (Colace -) 100 mg PO DAILY [facility] Last Admin: 08/15/18 09:49 Dose: 100 mg Furosemide (Lasix Injection -) 40 mg IVPUSH DAILY [facility] Last Admin: 08/15/18 09:49 Dose: 40 mg Guaifenesin/Codeine Phosphate (Robitussin Ac -) 5 ml PO TID PRN PRN Reason: COUGH Last Admin: 08/14/18 21:51 Dose: 5 ml Levofloxacin (Levaquin 250 Mg Premixed Ivpb -) 250 mg in 50 mls @ 50 mls/hr IVPB DAILY [facility]; Protocol Last Admin: 08/15/18 09:50 Dose: 50 mls/hr Levalbuterol HCl (Xopenex) 0.63 mg IH RTID [facility] Last Admin: 08/15/18 14:03 Dose: 0.63 mg Metoprolol Succinate (Toprol Xl -) 25 mg PO DAILY [facility] Last Admin: 08/15/18 09:49 Dose: 25 mg Ropinirole HCl (Requip -) 1 mg PO DAILY [facility] Last Admin: 08/15/18 09:51 Dose: 1 mg Timolol Maleate (Timoptic 0.5%) 1 drop OU BID [facility] Last Admin: 08/15/18 09:51 Dose: 1 drop Laboratory Results - last 24 hr 08/15/18 08/15/18 06:10 06:10 WBC 8.2 RBC 3.48 L Hgb 9.6 L Hct 30.6 L MCV 87.9 MCH 27.5 MCHC 31.3 L RDW 20.1 H Plt Count 268 MPV 7.2 L Absolute Neuts (auto) 5.3 Neutrophils % 64.5 Neutrophils % (Manual) 73.2 Band Neutrophils % 0.0 Lymphocytes % 13.8 D Lymphocytes % (Manual) 11.4 Monocytes % 20.5 H Monocytes % (Manual) 11 H Eosinophils % 0.8 Eosinophils % (Manual) 1.0 Basophils % 0.4 Basophils % (Manual) 0.0 Myelocytes % (Man) 0 Promyelocytes % (Man) 0 Blast Cells % (Manual) 0 Nucleated RBC % 0 Metamyelocytes 0 Hypochromia 0 Platelet Estimate Normal Polychromasia 1+ Poikilocytosis 1+ Anisocytosis 0 Microcytosis 0 Macrocytosis 0 Fragmented RBCs 1+ Sodium 137 Potassium 3.5 Chloride 99 Carbon Dioxide 33 H Anion Gap 5 L BUN 24 H Creatinine 1.4 H Creat Clearance w eGFR 35.41 Random Glucose 75 Calcium 8.6 Phosphorus 3.6 Magnesium 1.8 Total Bilirubin 0.7 AST 19 ALT 18 Alkaline Phosphatase 69 Total Protein 5.2 L Albumin [address] chest images and results reviewed ABG noted Telemetry with keren/tachy ASSESSMENT AND PLAN: 88 yof with PMHx of anemia, HTN, HLD, pericardial effusion, diastolic congestive heart failure, atrial fibrillation (on Eliquis), and restless leg syndrome, admitted with acute hypoxic/hypercapneic respiratory failure. -Acute hypoxic/hypercapneic respiratory failure -Bibasilar/JASBIR CAP -Acute on chronic diastolic heart failure exacerbation -Pulmonary HTN -Afib with tachy keren syndrome -Restless leg syndrome Plan: COntinue IV lasix/levaquin. Start Bipap hs and prn Pulmonary/cardiology input appreciated. Telemetry. Cardizem/metoprolol as HR tolerates. Eliquis. Levaquin renal dosing day 5 2d echo results reviewed. Standing and prn nebs. Strict I/os, daily weights. Dysphagia pureed with nectar thick liquids with aspiration precautions. Keep K > 4 and Mg > 2 Repete PO k, mg. DVTPPX eliquis PT eval noted. Anticipate will Need SNF when improved Code status/DNR/DNI dispo pending clinical improved. Plan discussed with son at bedside, all questions answered.
[2018-08-15] MEDS: MAGNESIUM OXIDE 400 MG TABLET (FP) PO SCH (14:46)
--- NOTE | 2018-08-15 18:33 | PN ---
Progress Note, Physician History of Present Illness: Seated in bed Lethargic No complaints Breathing non-labored + cough noted Afebrile WBC WNL CT shows pulmonary consolidations - Current Medication List Current Medications: Active Medications Albuterol Sulfate (Ventolin 0.083% Nebulizer Soln -) 1 amp NEB Q4H PRN PRN Reason: SHORT OF BREATH/WHEEZING Apixaban (Eliquis -) 2.5 mg PO BID [facility] Last Admin: 08/15/18 09:49 Dose: 2.5 mg Atorvastatin Calcium (Lipitor -) 10 mg PO HS [facility] Last Admin: 08/14/18 21:42 Dose: 10 mg Diltiazem HCl (Cardizem -) 90 mg PO BID [facility] Last Admin: 08/15/18 09:49 Dose: 90 mg Docusate Sodium (Colace -) 100 mg PO DAILY [facility] Last Admin: 08/15/18 09:49 Dose: 100 mg Furosemide (Lasix Injection -) 40 mg IVPUSH DAILY [facility] Last Admin: 08/15/18 09:49 Dose: 40 mg Guaifenesin/Codeine Phosphate (Robitussin Ac -) 5 ml PO TID PRN PRN Reason: COUGH Last Admin: 08/14/18 21:51 Dose: 5 ml Levofloxacin (Levaquin 250 Mg Premixed Ivpb -) 250 mg in 50 mls @ 50 mls/hr IVPB DAILY [facility]; Protocol Last Admin: 08/15/18 09:50 Dose: 50 mls/hr Levalbuterol HCl (Xopenex) 0.63 mg IH RTID [facility] Last Admin: 08/15/18 14:03 Dose: 0.63 mg Magnesium Oxide (Mag-Ox -) 800 mg PO DAILY [facility] Stop: 08/17/18 10:01 Last Admin: 08/15/18 14:46 Dose: 800 mg Metoprolol Succinate (Toprol Xl -) 25 mg PO DAILY [facility] Last Admin: 08/15/18 09:49 Dose: 25 mg Ropinirole HCl (Requip -) 1 mg PO DAILY [facility] Last Admin: 08/15/18 09:51 Dose: 1 mg Timolol Maleate (Timoptic 0.5%) 1 drop OU BID [facility] Last Admin: 08/15/18 09:51 Dose: 1 drop - Objective Vital Signs: Vital Signs Temperature 97.7 F 08/15/18 14:12 Pulse Rate 96 H 08/15/18 14:12 Respiratory Rate 21 H 08/15/18 14:12 Blood Pressure 123/49 L 08/15/18 14:12 O2 Sat by Pulse Oximetry (%) 95 08/15/18 08:53 Constitutional: Yes: No Distress Eyes: Yes: Conjunctiva Clear Cardiovascular: Yes: Regular Rate and Rhythm, S1, S2 Respiratory: Yes: Other (crepitations at bases) Gastrointestinal: Yes: Normal Bowel Sounds, Soft Labs: CBC, BMP 08/15/18 06:10 08/15/18 06:10 INR, PTT INR 1.41 (0.83-1.09) H 08/10/18 21:40 Assessment/Plan CHF Basilar, L pneumonia + Urine c/s = contamination PCN Continue empiric levaquin Discussed with son at bedside
--- NOTE | 2018-08-15 19:05 | PN ---
Physical Exam: SUBJECTIVE: Patient seen and examined this morning at bedside. Continues to have cough productive of Desai sputum overnight. Saturations overnight were >95% as per nursing staff. Denies fevers, chills, chest pain, SOB, nausea, vomiting. OBJECTIVE: Vital Signs Period Temp Pulse Resp BP Sys/Kraus Pulse Ox Last 24 Hr 97.7 F-98.2 F 88-111 17-22 103-139/49-82 95-96 GENERAL: A&Ox3, NAD HEAD: NCAT EYES: PERRL, EOMI ENT: Hard of hearing, oropharynx clear without exudates, moist mucous membranes NECK: supple, +JVD LUNGS: Bibasalar crackles, on 4L NC HEART: Regular rate and rhythm, normal S1 and S2 ABDOMEN: Soft, nontender, not distended, + bowel sounds, no guarding EXTREMITIES: 2+ pulses, 2+ pitting edema b/l NEUROLOGICAL: Cranial nerves II-XII intact. Normal speech SKIN: Warm, dry, no rashes or lesions noted Laboratory Results - last 24 hr 08/15/18 08/15/18 06:10 06:10 WBC 8.2 RBC 3.48 L Hgb 9.6 L Hct 30.6 L MCV 87.9 MCH 27.5 MCHC 31.3 L RDW 20.1 H Plt Count 268 MPV 7.2 L Absolute Neuts (auto) 5.3 Neutrophils % 64.5 Neutrophils % (Manual) 73.2 Band Neutrophils % 0.0 Lymphocytes % 13.8 D Lymphocytes % (Manual) 11.4 Monocytes % 20.5 H Monocytes % (Manual) 11 H Eosinophils % 0.8 Eosinophils % (Manual) 1.0 Basophils % 0.4 Basophils % (Manual) 0.0 Myelocytes % (Man) 0 Promyelocytes % (Man) 0 Blast Cells % (Manual) 0 Nucleated RBC % 0 Metamyelocytes 0 Hypochromia 0 Platelet Estimate Normal Polychromasia 1+ Poikilocytosis 1+ Anisocytosis 0 Microcytosis 0 Macrocytosis 0 Fragmented RBCs 1+ Sodium 137 Potassium 3.5 Chloride 99 Carbon Dioxide 33 H Anion Gap 5 L BUN 24 H Creatinine 1.4 H Creat Clearance w eGFR 35.41 Random Glucose 75 Calcium 8.6 Phosphorus 3.6 Magnesium 1.8 Total Bilirubin 0.7 AST 19 ALT 18 Alkaline Phosphatase 69 Total Protein 5.2 L Albumin 2.5 L Microbiology 10/12/18 20:00 Blood - Peripheral Venous Blood Culture - Preliminary NO GROWTH OBTAINED AFTER 96 HOURS, INCUBATION TO CONTINUE FOR 1 DAYS. 08/10/18 20:50 Blood - Peripheral Venous Blood Culture - Preliminary NO GROWTH OBTAINED AFTER 96 HOURS, INCUBATION TO CONTINUE FOR 1 DAYS. 08/10/18 21:50 Urine - Urine Clean Catch Urine Culture - Final Escherichia Coli Group D Strep Or Entero Coccus 08/11/18 10:41 Urine For Antigen Detection Legionella Antigen - Final 08/11/18 10:41 Urine For Antigen Detection Streptococcus pneumoniae Antigen (M - Final 08/11/18 03:51 Nasopharyngeal Swab Respiratory Syncytial Virus Ag - Final 08/11/18 03:51 Nasopharyngeal Swab Influenza Types A,B Antigen - Final 08/11/18 03:51 Nasopharyngeal Swab - Final Active Medications Albuterol Sulfate (Ventolin 0.083% Nebulizer Soln -) 1 amp NEB Q4H PRN PRN Reason: SHORT OF BREATH/WHEEZING Apixaban (Eliquis -) 2.5 mg PO BID [facility] Last Admin: 08/15/18 09:49 Dose: 2.5 mg Atorvastatin Calcium (Lipitor -) 10 mg PO HS [facility] Last Admin: 08/14/18 21:42 Dose: 10 mg Diltiazem HCl (Cardizem -) 90 mg PO BID [facility] Last Admin: 08/15/18 09:49 Dose: 90 mg Docusate Sodium (Colace -) 100 mg PO DAILY [facility] Last Admin: 08/15/18 09:49 Dose: 100 mg Furosemide (Lasix Injection -) 40 mg IVPUSH DAILY [facility] Last Admin: 08/15/18 09:49 Dose: 40 mg Guaifenesin/Codeine Phosphate (Robitussin Ac -) 5 ml PO TID PRN PRN Reason: COUGH Last Admin: 08/14/18 21:51 Dose: 5 ml Levofloxacin (Levaquin 250 Mg Premixed Ivpb -) 250 mg in 50 mls @ 50 mls/hr IVPB DAILY [facility]; Protocol Last Admin: 08/15/18 09:50 Dose: 50 mls/hr Levalbuterol HCl (Xopenex) 0.63 mg IH RTID [facility] Last Admin: 08/15/18 14:03 Dose: 0.63 mg Magnesium Oxide (Mag-Ox -) 800 mg PO DAILY [facility] Stop: 08/17/18 10:01 Last Admin: 08/15/18 14:46 Dose: 800 mg Metoprolol Succinate (Toprol Xl -) 25 mg PO DAILY [facility] Last Admin: 08/15/18 09:49 Dose: 25 mg Ropinirole HCl (Requip -) 1 mg PO DAILY [facility] Last Admin: 08/15/18 09:51 Dose: 1 mg Timolol Maleate (Timoptic 0.5%) 1 drop OU BID [facility] Last Admin: 08/15/18 09:51 Dose: 1 drop IMAGING: -CXR (08/10): Imaging reveals a large heart, sclerotic knob, congestive changes and questionable left base infiltrate. Follow-up recommended -CXR (08/13): Increased opacification of the left hemithorax attributed to the pleural effusion, left lung atelectasis shift of mediastinal structures to the left side. Normal aeration of the lung right lung. No pneumothorax or large pleural effusion is seen. Clinically correlate for malignant process. -US Duplex 2 Legs: No DVT is identified involving either leg. Please see above. -EKG: ATRIAL FIBRILLATION WITH RAPID VENTRICULAR RESPONSE WITH PREMATURE VENTRICULAR OR ABERRANTLY CONDUCTED COMPLEXES, LEFT AXIS DEVIATION, QTc 482 -ECHO: LV systolic function is mildly reduced. Mild anterior wall hypokinesis. LA is moderately dilated, RA is mildly dilated. Mild MR, Moderate TR. Mild Pulmonic Valvular regurg, Small pericardial effusion. Pleural effusion present. -CT Chest without contrast: Bibasal consolidation and calcification the left upper lobe compatible with pneumonia. Small to moderate left and small right pleural effusion. Close follow-up CT scan of the chest in one to 2 weeks is recommended to assess 40 clearing of airspace disease and to rule out any underlying pathology. Multiple gallstones are present. ASSESSMENT/PLAN: 88 y/o F with a PMHx of Anemia, HTN, HLD, DCHF, AF (on Eliquis), restless leg syndrome presented from home for acute hypoxia sats 88%, with progressively worsening SOB, and productive cough for the past week as per son at bedside. 1. Acute hypoxic respiratory failure -Likely due to CHF exacerbation in the setting of URTI -Flu Swab, RSV, Urine legionella and strep negative -Continue IV Lasix 40mg -Strict I&Os, Daily weights -Fluid restriction < 1L/day -Supplemental O2 to maintain sats >90% -ECHO: LV systolic function is mildly reduced. Mild anterior wall hypokinesis. Small pericardial effusion. Pleural effusion present. -Cardiology (Dr Zavala) consulted, appreciate rec's, Continue Cardizem, Continue Eliquis, Continue IV Lasix Goal BP < 140/90, Begin Metoprolol tartrate 12.5 mg BID, Can Convert to Toprol XL 25mg daily prior to discharge if remains well controlled. -Monitor on Tele for another 24 hours -CXR (08/10): Congestive changes and questionable left base infiltrate -Repeat CXR noted above -CT Chest: Bibasal consolidation and calcification the left upper lobe compatible with pneumonia. Small to moderate left and small right pleural effusion. -Pulmonology (Dr. Willoughby) Consulted, Appreciate rec's, Inhaled bronchodilators, NIPPV -Bipap settings ordered 2. Sepsis -Likely 2/2 CAP Atypical PNA -On admission was tachycardic 123, tachypnic 24, LA 2.4, WBC 11.1; Tachycardia and tachypnea have resolved, WBC 8.5, LA 1.2 -ID (Dr. Sousa) consulted, appreciate rec's -Continue Levaquin (Started on 08/10) -Urine cultures noted above, likely contaminanted 3. Transient Bradycardia -Tele strip reveals episodes of HR < 40 -Diltiazem dose reduced to 90mg BID (previously 120mg BID) -Continue Toprol Xl 25 mg daily 4. Hyponatremia -Likely due to volume overload, Improved -TSH, Free T4 noted, Low T3 5. Leg edema -In the setting of fluid overload and recent immobility -US Duplex 2 Legs: No DVT is identified involving either leg. Please see above. -Continue IV Lasix 40mg 6. HTN -Cardiology (Dr Zavala) consulted, appreciate rec's, Goal BP < 140/90 (CKD): d/c hydralazine for now as beta rei introduced. Given episode of relative hypotension, will d/c hydralazine and observe BP trend. -Continue Diltiazem, Lasix, Lopressor; Hydralazine d/c'ed -Can start ACEI or ARB if renal function improves 7. Hx of HLD -Continue Lipitor 10 mg HS 8. Hx of Atrial fibrillation -Continue rate control with Diltiazem (Reduced dose) -Started on Toprol Xl 25 mg daily -Continue Eliquis 2.5mg BID 9. FEN -PO fluids -Continue to monitor for hyponatremia; Keep K+ >4.0, Mag >2.0 -Dysphagia Pureed diet, [place] Thick liquids, Magic Cup, Ensure Pudding, Aspiration precautions 10. PPx -DVT: On home dose Eliquis Dispo:Tele inpatient; Will likely need SNF before dc Visit type - Emergency Visit Emergency Visit: Yes ED Registration Date: 08/10/18 Care time: The patient presented to the Emergency Department on the above date and was hospitalized for further evaluation of their emergent condition. - New Patient This patient is new to me today: No - Critical Care Critical Care patient: No - Discharge Referral Referred to [facility] No
[2018-08-15] MEDS: ATORVASTATIN CA 10 MG TABLET (FP) PO SCH (23:01)
[2018-08-15] MEDS: guaiFENesin/CODEINE 5 ML UNIT-DOSE CUPS PO PRN (23:04)
[2018-08-16] MEDS ORDERED: MELATONIN 5 MG TABLETS PO ONE (01:30)
[2018-08-16] MEDS ORDERED: OXYMETAZOLINE 0.05% NASAL SOLUTION 15 ML BOTTLE NS ONE (01:30)
[2018-08-16] MEDS ORDERED: PT OWN MED DRAWER 7, Y5N ONE ×4 (01:42→13:44)
--- NOTE | 2018-08-16 07:30 | PN ---
Teaching Attending Note Name of Resident: Brenda Jameson ATTENDING PHYSICIAN STATEMENT I saw and evaluated the patient. I reviewed the resident's note and discussed the case with the resident. I agree with the resident's findings and plan as documented with exceptions below. SUBJECTIVE: Patient seen and examined. responds to name, denies any complaints. OBJECTIVE: Vital Signs Period Temp Pulse Resp BP Sys/Kraus Pulse Ox Last 24 Hr 97.7 F-98.8 F 92-108 18-22 103-123/49-84 92-95 Intake & Output 08/13/18 08/14/18 08/15/18 08/16/18 23:59 23:59 23:59 23:59 Intake Total 190 250 210 60 Output Total 710 300 Balance 190 250 -500 -240 Weight 147 lb 8 oz 147 lb 3.2 oz 146 lb 14.4 oz General: sitting in bed, on bipap, tachypneic, responds to name when called neck: neck vein distension Chest: decreased breath sounds at bases, scattered few rhonchi Abdomen; soft, NT, ND Extremities: 1+ pedal edema Active Medications Albuterol Sulfate (Ventolin 0.083% Nebulizer Soln -) 1 amp NEB Q4H PRN PRN Reason: SHORT OF BREATH/WHEEZING Apixaban (Eliquis -) 2.5 mg PO BID [facility] Last Admin: 08/15/18 23:01 Dose: 2.5 mg Atorvastatin Calcium (Lipitor -) 10 mg PO HS [facility] Last Admin: 08/15/18 23:01 Dose: 10 mg Diltiazem HCl (Cardizem -) 90 mg PO BID [facility] Last Admin: 08/15/18 23:01 Dose: 90 mg Docusate Sodium (Colace -) 100 mg PO DAILY [facility] Last Admin: 08/15/18 09:49 Dose: 100 mg Guaifenesin/Codeine Phosphate (Robitussin Ac -) 5 ml PO TID PRN PRN Reason: COUGH Last Admin: 08/15/18 23:04 Dose: 5 ml Levofloxacin (Levaquin 250 Mg Premixed Ivpb -) 250 mg in 50 mls @ 50 mls/hr IVPB DAILY [facility]; Protocol Last Admin: 08/15/18 09:50 Dose: 50 mls/hr Levalbuterol HCl (Xopenex) 0.63 mg IH RTID [facility] Last Admin: 08/15/18 20:45 Dose: 0.63 mg Magnesium Oxide (Mag-Ox -) 800 mg PO DAILY [facility] Stop: 08/17/18 10:01 Last Admin: 08/15/18 14:46 Dose: 800 mg Metoprolol Succinate (Toprol Xl -) 25 mg PO DAILY [facility] Last Admin: 08/15/18 09:49 Dose: 25 mg Ropinirole HCl (Requip -) 1 mg PO DAILY [facility] Last Admin: 08/15/18 09:51 Dose: 1 mg Timolol Maleate (Timoptic 0.5%) 1 drop OU BID [facility] Last Admin: 08/15/18 23:01 Dose: 1 drop Laboratory Results - last 24 hr 08/15/18 08/16/18 08/16/18 06:10 06:35 06:35 WBC 9.0 RBC 3.56 L Hgb 9.7 L Hct 31.4 L MCV 88.2 MCH 27.3 MCHC 30.9 L RDW 20.0 H Plt Count 260 MPV 7.5 Absolute Neuts (auto) 5.6 Neutrophils % 62.9 Neutrophils % (Manual) 73.2 Band Neutrophils % 0.0 Lymphocytes % 13.9 Lymphocytes % (Manual) 11.4 Monocytes % 21.7 H Monocytes % (Manual) 11 H Eosinophils % 1.1 Eosinophils % (Manual) 1.0 Basophils % 0.4 Basophils % (Manual) 0.0 Myelocytes % (Man) 0 Promyelocytes % (Man) 0 Blast Cells % (Manual) 0 Nucleated RBC % 0 Metamyelocytes 0 Hypochromia 0 Platelet Estimate Normal Polychromasia 1+ Poikilocytosis 1+ Anisocytosis 0 Microcytosis 0 Macrocytosis 0 Fragmented RBCs 1+ Puncture Site ABG pH ABG pCO2 at Pt Temp ABG pO2 at Pt Temp ABG HCO3 ABG O2 Sat (Measured) ABG O2 Content ABG Base Excess Carlos Test O2 Delivery Device Oxygen Flow Rate PEEP Sodium 141 Potassium 4.4 Chloride 99 Carbon Dioxide 37 H Anion Gap 4 L BUN 26 H Creatinine 1.4 H Creat Clearance w eGFR 35.41 Random Glucose 120 H Calcium 8.9 Phosphorus 3.1 Magnesium 1.8 Total Bilirubin 0.6 AST 23 ALT 18 Alkaline Phosphatase 66 B-Natriuretic Peptide 9563.6 H Total Protein 5.2 L Albumin 2.5 L 08/16/18 09:19 WBC RBC Hgb Hct MCV MCH MCHC RDW Plt Count MPV Absolute Neuts (auto) Neutrophils % Neutrophils % (Manual) Band Neutrophils % Lymphocytes % Lymphocytes % (Manual) Monocytes % Monocytes % (Manual) Eosinophils % Eosinophils % (Manual) Basophils % Basophils % (Manual) Myelocytes % (Man) Promyelocytes % (Man) Blast Cells % (Manual) Nucleated RBC % Metamyelocytes Hypochromia Platelet Estimate Polychromasia Poikilocytosis Anisocytosis Microcytosis Macrocytosis Fragmented RBCs Puncture Site Right radial ABG pH 7.34 L ABG pCO2 at Pt Temp 69.1 H* ABG pO2 at Pt Temp 120.0 H ABG HCO3 36.7 H ABG O2 Sat (Measured) 98.9 ABG O2 Content 13.1 L ABG Base Excess 9.6 H Carlos Test Positive O2 Delivery Device Nasal cannula Oxygen Flow Rate 3l PEEP 0.0 Sodium Potassium Chloride Carbon Dioxide Anion Gap BUN Creatinine Creat Clearance w eGFR Random Glucose Calcium Phosphorus Magnesium Total Bilirubin AST ALT Alkaline Phosphatase B-Natriuretic Peptide Total Protein Albumin Telemetry AfibHR 90s-140s, non sustained to 140s ASSESSMENT AND PLAN: 88 yof with PMHx of anemia, HTN, HLD, pericardial effusion, diastolic congestive heart failure, atrial fibrillation (on Eliquis), and restless leg syndrome, admitted with acute hypoxic/hypercapneic respiratory failure. -Acute hypoxic/hypercapneic respiratory failure -Bibasilar/JASBIR CAP -Acute on chronic diastolic heart failure exacerbation -ABDOUL, suspect from aggressive diuresis -Contraction alkalosis. -Pulmonary HTN -Afib with tachy keren syndrome -Lower uncomplicated E. Coli/gp d streptococcus. -Urinary retention -AMs, suspect toxic metabolic encephalopathy from above -Restless leg syndrome Plan: Taper lasix 20 mg IV daily with strict I/Os, daily weights and renal function monitoring. ABG noted. Place on Bipap as tolerated now. Pulmonary/cardiology input appreciated. Telemetry reviewed. Cardizem/metoprolol. Caridology input appreciated. Eliquis. 2d echo results reviewed. Standing and prn nebs. Levaquin renal dosing day 7 Blood cx/RSV/legionella/Flu swab neg. Kaufman placed overnight. Dysphagia pureed with nectar thick liquids with aspiration precautions. Keep K > 4 and Mg > 2 Repete PO k, mg prn. DVTPPX eliquis PT eval noted. Anticipate will Need SNF when improved Code status/DNR/DNI dispo pending clinical improved. Plan discussed with patient.
[2018-08-16] MEDS: LEVALBUTEROL HCL 0.63 MG/3 ML VIAL.NEB. IH SCH ×3 (07:35→21:32)
[2018-08-16 07:44] LABS: BASO % 0.4 % (0-2.0); EOS % 1.1 % (0-4.5); HEMATOCRIT 31.4 % (32.4-45.2); HEMOGLOBIN 9.7 GM/dL (10.7-15.3); LYMPH % 13.9 % (8-40); MCH 27.3 pg (25.7-33.7); MCHC 30.9 g/dl (32.0-36.0); MEAN CELL VOLUME 88.2 fl (80-96); MEAN PLT VOLUME 7.5 fl (7.5-11.1); MONO % 21.7 % (3.8-10.2); NEUT % 62.9 % (42.8-82.8); PLATELET COUNT 260 K/MM3 (134-434); RBC 3.56 M/mm3 (3.60-5.2)
[2018-08-16 08:28] LABS: ALBUMIN 2.5 g/dl (3.4-5.0); ALK PHOS 66 U/L (45-117); ANION GAP 4 MMOL/L (8-16); BILIRUBIN,TOTAL 0.6 mg/dL (0.2-1); BLOOD UREA NITROGEN 26 mg/dL (7-18); CALCIUM 8.9 mg/dL (8.5-10.1); CHLORIDE 99 mmol/L (98-107); CO2 37 mmol/L (21-32); CREATININE 1.4 mg/dL (0.55-1.3); GLUCOSE,RANDOM 120 mg/dL (74-106); MAGNESIUM 1.8 mg/dL (1.8-2.4); PHOSPHOROUS 3.1 mg/dL (2.5-4.9); POTASSIUM 4.4 mmol/L (3.5-5.1); SGOT/AST 23 U/L (15-37); SGPT/ALT 18 U/L (13-61); SODIUM 141 mmol/L (136-145); TOT PROT 5.2 g/dl (6.4-8.2)
[2018-08-16 09:30] LABS: ARTERIAL BLD GAS O2 SATURATION 98.9 % (90-98.9); ARTERIAL BLOOD GAS BASE EXCESS 9.6 meq/l (-2-2); ARTERIAL BLOOD GAS pH 7.34 (7.35-7.45)
[2018-08-16 09:35] LABS: ALLENS TEST POSITIVE
[2018-08-16 09:37] LABS: ARTERIAL BLOOD GAS PCO2 69.1 mmHg (35-45)
[2018-08-16 09:42] LABS: N-TERMINAL BNP 9563.6 pg/ml (5-450)
[2018-08-16] MEDS: DOCUSATE SODIUM 100 MG CAPSULE (FP) PO SCH (10:34)
[2018-08-16] MEDS: MAGNESIUM OXIDE 400 MG TABLET (FP) PO SCH (10:34)
[2018-08-16] MEDS: metoPROLOL SUCCINATE 25 MG TAB.SR.24H (FP) PO SCH (10:34)
[2018-08-16] MEDS: APIXABAN 2.5 MG TABLET PO SCH ×2 (10:34→21:34)
[2018-08-16] MEDS: dilTIAZem HCL 30 MG TABLET (FP) PO SCH ×2 (10:34→21:33)
[2018-08-16] MEDS: rOPINIRole HCL 1 MG TABLET (FP) PO SCH (10:34)
[2018-08-16] MEDS: FUROSEMIDE 40 MG/4 ML INJECTABLE VIAL IVPUSH SCH (10:38)
[2018-08-16 11:04] LABS: ANISOCYTOSIS 1+; MACROCYTOSIS 0; PLATELET ESTIMATE NORMAL
[2018-08-16] MEDS: TIMOLOL 0.5% OPHTHALMIC SOL 5 ML BOTTLE OU SCH ×2 (11:27→21:34)
--- NOTE | 2018-08-16 12:02 | PN ---
Physical Exam: SUBJECTIVE: Patient seen and examined this morning at bedside. Was given melatonin x1 overnight. Mandujano was placed and drained approx 700 mls. Denies fevers, chills, chest pain, SOB, nausea, vomiting. OBJECTIVE: Vital Signs Period Temp Pulse Resp BP Sys/Kraus Pulse Ox Last 24 Hr 97.7 F-98.8 F 92-108 18-21 103-123/49-84 92-96 Intake & Output 08/15/18 08/16/18 08/16/18 23:59 07:59 15:59 Intake Total 120 60 Output Total 710 300 Balance -590 -240 Weight 64.682 kg GENERAL: A&Ox3, NAD HEAD: NCAT EYES: PERRL, EOMI ENT: Hard of hearing, oropharynx clear without exudates, moist mucous membranes NECK: supple, +JVD LUNGS: Tachypneic, Rhonchi heard at the bases, on 4L NC HEART: Regular rate and rhythm, normal S1 and S2 ABDOMEN: Soft, nontender, not distended, + bowel sounds, no guarding EXTREMITIES: 2+ pulses, 1+ pitting edema b/l NEUROLOGICAL: Cranial nerves II-XII intact. Normal speech SKIN: Warm, dry, no rashes or lesions noted Laboratory Results - last 24 hr 08/15/18 08/16/18 08/16/18 06:10 06:35 06:35 WBC 9.0 RBC 3.56 L Hgb 9.7 L Hct 31.4 L MCV 88.2 MCH 27.3 MCHC 30.9 L RDW 20.0 H Plt Count 260 MPV 7.5 Absolute Neuts (auto) 5.6 Neutrophils % 62.9 Neutrophils % (Manual) 73.2 Band Neutrophils % 0.0 Lymphocytes % 13.9 Lymphocytes % (Manual) 11.4 Monocytes % 21.7 H Monocytes % (Manual) 11 H Eosinophils % 1.1 Eosinophils % (Manual) 1.0 Basophils % 0.4 Basophils % (Manual) 0.0 Myelocytes % (Man) 0 Promyelocytes % (Man) 0 Blast Cells % (Manual) 0 Nucleated RBC % 0 Metamyelocytes 0 Hypochromia 0 Platelet Estimate Normal Polychromasia 1+ Poikilocytosis 1+ Anisocytosis 0 Microcytosis 0 Macrocytosis 0 Fragmented RBCs 1+ Puncture Site ABG pH ABG pCO2 at Pt Temp ABG pO2 at Pt Temp ABG HCO3 ABG O2 Sat (Measured) ABG O2 Content ABG Base Excess Carlos Test O2 Delivery Device Oxygen Flow Rate PEEP Sodium 141 Potassium 4.4 Chloride 99 Carbon Dioxide 37 H Anion Gap 4 L BUN 26 H Creatinine 1.4 H Creat Clearance w eGFR 35.41 Random Glucose 120 H Calcium 8.9 Phosphorus 3.1 Magnesium 1.8 Total Bilirubin 0.6 AST 23 ALT 18 Alkaline Phosphatase 66 B-Natriuretic Peptide 9563.6 H Total Protein 5.2 L Albumin 2.5 L 08/16/18 09:19 WBC RBC Hgb Hct MCV MCH MCHC RDW Plt Count MPV Absolute Neuts (auto) Neutrophils % Neutrophils % (Manual) Band Neutrophils % Lymphocytes % Lymphocytes % (Manual) Monocytes % Monocytes % (Manual) Eosinophils % Eosinophils % (Manual) Basophils % Basophils % (Manual) Myelocytes % (Man) Promyelocytes % (Man) Blast Cells % (Manual) Nucleated RBC % Metamyelocytes Hypochromia Platelet Estimate Polychromasia Poikilocytosis Anisocytosis Microcytosis Macrocytosis Fragmented RBCs Puncture Site Right radial ABG pH 7.34 L ABG pCO2 at Pt Temp 69.1 H* ABG pO2 at Pt Temp 120.0 H ABG HCO3 36.7 H ABG O2 Sat (Measured) 98.9 ABG O2 Content 13.1 L ABG Base Excess 9.6 H Carlos Test Positive O2 Delivery Device Nasal cannula Oxygen Flow Rate 3l PEEP 0.0 Sodium Potassium Chloride Carbon Dioxide Anion Gap BUN Creatinine Creat Clearance w eGFR Random Glucose Calcium Phosphorus Magnesium Total Bilirubin AST ALT Alkaline Phosphatase B-Natriuretic Peptide Total Protein Albumin Microbiology 08/10/18 20:00 Blood - Peripheral Venous Blood Culture - Final NO GROWTH AFTER 5 DAYS INCUBATION 08/10/18 20:50 Blood - Peripheral Venous Blood Culture - Final NO GROWTH AFTER 5 DAYS INCUBATION 08/10/18 21:50 Urine - Urine Clean Catch Urine Culture - Final Escherichia Coli Group D Strep Or Entero Coccus 08/11/18 10:41 Urine For Antigen Detection Legionella Antigen - Final 08/11/18 10:41 Urine For Antigen Detection Streptococcus pneumoniae Antigen (M - Final 08/11/18 03:51 Nasopharyngeal Swab Respiratory Syncytial Virus Ag - Final 08/11/18 03:51 Nasopharyngeal Swab Influenza Types A,B Antigen - Final 08/11/18 03:51 Nasopharyngeal Swab - Final Active Medications Albuterol Sulfate (Ventolin 0.083% Nebulizer Soln -) 1 amp NEB Q4H PRN PRN Reason: SHORT OF BREATH/WHEEZING Last Admin: 08/16/18 09:27 Dose: 1 amp Apixaban (Eliquis -) 2.5 mg PO BID [facility] Last Admin: 08/16/18 10:34 Dose: 2.5 mg Atorvastatin Calcium (Lipitor -) 10 mg PO HS [facility] Last Admin: 08/15/18 23:01 Dose: 10 mg Diltiazem HCl (Cardizem -) 90 mg PO BID [facility] Last Admin: 08/16/18 10:34 Dose: 90 mg Docusate Sodium (Colace -) 100 mg PO DAILY [facility] Last Admin: 08/16/18 10:34 Dose: 100 mg Furosemide (Lasix Injection -) 20 mg IVPUSH DAILY [facility] Last Admin: 08/16/18 10:38 Dose: 20 mg Guaifenesin/Codeine Phosphate (Robitussin Ac -) 5 ml PO TID PRN PRN Reason: COUGH Last Admin: 08/15/18 23:04 Dose: 5 ml Levofloxacin (Levaquin 250 Mg Premixed Ivpb -) 250 mg in 50 mls @ 50 mls/hr IVPB DAILY [facility]; Protocol Last Admin: 08/16/18 10:37 Dose: 50 mls/hr Levalbuterol HCl (Xopenex) 0.63 mg IH RTID [facility] Last Admin: 08/16/18 07:35 Dose: 0.63 mg Magnesium Oxide (Mag-Ox -) 800 mg PO DAILY [facility] Stop: 08/17/18 10:01 Last Admin: 08/16/18 10:34 Dose: 800 mg Melatonin (Melatonin) 5 mg PO HS PRN PRN Reason: INSOMNIA Metoprolol Succinate (Toprol Xl -) 25 mg PO DAILY [facility] Last Admin: 08/16/18 10:34 Dose: 25 mg Ropinirole HCl (Requip -) 1 mg PO DAILY [facility] Last Admin: 08/16/18 10:34 Dose: 1 mg Timolol Maleate (Timoptic 0.5%) 1 drop OU BID [facility] Last Admin: 08/16/18 11:27 Dose: 1 drop IMAGING: -CXR (08/10): Imaging reveals a large heart, sclerotic knob, congestive changes and questionable left base infiltrate. Follow-up recommended -CXR (08/13): Increased opacification of the left hemithorax attributed to the pleural effusion, left lung atelectasis shift of mediastinal structures to the left side. Normal aeration of the lung right lung. No pneumothorax or large pleural effusion is seen. Clinically correlate for malignant process. -US Duplex 2 Legs: No DVT is identified involving either leg. Please see above. -EKG: ATRIAL FIBRILLATION WITH RAPID VENTRICULAR RESPONSE WITH PREMATURE VENTRICULAR OR ABERRANTLY CONDUCTED COMPLEXES, LEFT AXIS DEVIATION, QTc 482 -ECHO: LV systolic function is mildly reduced. Mild anterior wall hypokinesis. LA is moderately dilated, RA is mildly dilated. Mild MR, Moderate TR. Mild Pulmonic Valvular regurg, Small pericardial effusion. Pleural effusion present. -CT Chest without contrast: Bibasal consolidation and calcification the left upper lobe compatible with pneumonia. Small to moderate left and small right pleural effusion. Close follow-up CT scan of the chest in one to 2 weeks is recommended to assess 40 clearing of airspace disease and to rule out any underlying pathology. Multiple gallstones are present. ASSESSMENT/PLAN: 88 y/o F with a PMHx of Anemia, HTN, HLD, DCHF, AF (on Eliquis), restless leg syndrome presented from home for acute hypoxia sats 88%, with progressively worsening SOB, and productive cough for the past week as per son at bedside. Mandujano placed overnight. Dysphagia pureed with nectar thick liquids with aspiration precautions. Keep K > 4 and Mg > 2 Repete PO k, mg prn. 1. Acute hypoxic, Hypercapnic respiratory failure -Likely due to CHF exacerbation in the setting of URTI -Flu Swab, RSV, Urine legionella and strep negative -IV Lasix reduced to 20mg (was on 40mg), will taper as needed -Strict I&Os, Daily weights, monitor renal function -Fluid restriction < 1L/day -ABG shows Contraction alkalosis; Placed on Bipap, titrate up as needed -Supplemental O2 to maintain sats >90% -ECHO: LV systolic function is mildly reduced. Mild anterior wall hypokinesis. Small pericardial effusion. Pleural effusion present. -Cardiology (Dr Zavala) consulted, appreciate rec's, Continue Cardizem, Continue Eliquis, Continue IV Lasix Goal BP < 140/90, Begin Metoprolol tartrate 12.5 mg BID, Can Convert to Toprol XL 25mg daily prior to discharge if remains well controlled. -Monitor on Tele for another 24 hours -CXR (08/10): Congestive changes and questionable left base infiltrate -Repeat CXR noted above -CT Chest: Bibasal consolidation and calcification the left upper lobe compatible with pneumonia. Small to moderate left and small right pleural effusion. -Pulmonology (Dr. Willoughby) Consulted, Appreciate rec's, Inhaled bronchodilators, NIPPV 2. Sepsis -Likely 2/2 CAP Atypical PNA -On admission was tachycardic 123, tachypnic 24, LA 2.4, WBC 11.1; Tachycardia and tachypnea have resolved, WBC 8.5, LA 1.2 -ID (Dr. Sousa) consulted, appreciate rec's -Continue Levaquin (Started on 08/10) -Urine cultures noted above, likely contaminanted -Blood cx NGTD 3. Tachy-Mark Syndrome -Tele strip reveals episodes of HR < 40 initially. Today show tachycardia -Diltiazem dose reduced to 90mg BID (previously 120mg BID) -Continue Toprol Xl 25 mg daily 4. Urinary retention -Mandujano catheter placed overnight (08/16) emptying ~700 mls -Will maintain mandujano and continue to monitor 5. ABDOUL -Likely from Diuretic use -Cr stable at 1.4 -Lasix dose reduced to 20mg -Will continue to monitor and hydrate if Cr trends up 6. Hyponatremia -Likely due to volume overload, Improved -TSH, Free T4 noted, Low T3 7. Leg edema -In the setting of fluid overload and recent immobility -US Duplex 2 Legs: No DVT is identified involving either leg. Please see above. -IV Lasix 20mg 8. HTN -Cardiology (Dr Zavala) consulted, appreciate rec's, Goal BP < 140/90 (CKD): d/c hydralazine for now as beta rei introduced. Given episode of relative hypotension, will d/c hydralazine and observe BP trend. -Continue Diltiazem, Lasix, Lopressor; Hydralazine d/c'ed -Can start ACEI or ARB if renal function improves 9. Hx of HLD -Continue Lipitor 10 mg HS 10. Hx of Atrial fibrillation -Continue rate control with Diltiazem (Reduced dose) and Toprol XL -Continue Eliquis 2.5mg BID 11. FEN -PO fluids -Continue to monitor for hyponatremia; Keep K+ >4.0, Mag >2.0 -Dysphagia Pureed diet, [place] Thick liquids, Magic Cup, Ensure Pudding, Aspiration precautions 12. PPx -DVT: On home dose Eliquis Dispo:Tele inpatient; Will likely need SNF before dc Code status: DNR/DNI Visit type - Emergency Visit Emergency Visit: Yes ED Registration Date: 08/10/18 Care time: The patient presented to the Emergency Department on the above date and was hospitalized for further evaluation of their emergent condition. - New Patient This patient is new to me today: No - Critical Care Critical Care patient: No - Discharge Referral Referred to [facility] Med [facility].C.: No
--- NOTE | 2018-08-16 12:10 | PN ---
Progress Note (short form) - Note Progress Note: Awake. Placed on NIPPV, 28% FiO2 due to SOB. Urinary retention overnight. No CP. CXR: some slightly improvement in congestion / effusion Intake & Output 08/13/18 08/14/18 08/15/18 08/16/18 23:59 23:59 23:59 23:59 Intake Total 190 250 210 60 Output Total 710 300 Balance 190 250 -500 -240 Weight 147 lb 8 oz 147 lb 3.2 oz 146 lb 14.4 oz 142 lb 9.6 oz Last Vital Signs Temp Pulse Resp BP Pulse Ox 98.0 F 103 H 20 116/59 L 96 08/16/18 08:48 08/16/18 08:48 08/16/18 08:48 08/16/18 08:48 08/16/18 10:10 Active Medications Albuterol Sulfate (Ventolin 0.083% Nebulizer Soln -) 1 amp NEB Q4H PRN PRN Reason: SHORT OF BREATH/WHEEZING Last Admin: 08/16/18 09:27 Dose: 1 amp Apixaban (Eliquis -) 2.5 mg PO BID [facility] Last Admin: 08/16/18 10:34 Dose: 2.5 mg Atorvastatin Calcium (Lipitor -) 10 mg PO HS [facility] Last Admin: 08/15/18 23:01 Dose: 10 mg Diltiazem HCl (Cardizem -) 90 mg PO BID [facility] Last Admin: 08/16/18 10:34 Dose: 90 mg Docusate Sodium (Colace -) 100 mg PO DAILY [facility] Last Admin: 08/16/18 10:34 Dose: 100 mg Furosemide (Lasix Injection -) 20 mg IVPUSH DAILY [facility] Last Admin: 08/16/18 10:38 Dose: 20 mg Guaifenesin/Codeine Phosphate (Robitussin Ac -) 5 ml PO TID PRN PRN Reason: COUGH Last Admin: 08/15/18 23:04 Dose: 5 ml Levofloxacin (Levaquin 250 Mg Premixed Ivpb -) 250 mg in 50 mls @ 50 mls/hr IVPB DAILY [facility]; Protocol Last Admin: 08/16/18 10:37 Dose: 50 mls/hr Levalbuterol HCl (Xopenex) 0.63 mg IH RTID [facility] Last Admin: 08/16/18 07:35 Dose: 0.63 mg Magnesium Oxide (Mag-Ox -) 800 mg PO DAILY [facility] [place] Stop: 08/17/18 10:01 Last Admin: 08/16/18 10:34 Dose: 800 mg Melatonin (Melatonin) 5 mg PO HS PRN PRN Reason: INSOMNIA Metoprolol Succinate (Toprol Xl -) 25 mg PO DAILY [facility] Last Admin: 08/16/18 10:34 Dose: 25 mg Ropinirole HCl (Requip -) 1 mg PO DAILY [facility] Last Admin: 08/16/18 10:34 Dose: 1 mg Timolol Maleate (Timoptic 0.5%) 1 drop OU BID [facility] Last Admin: 08/16/18 11:27 Dose: 1 drop Constitutional: Yes: Awake on NIPPV support Eyes: Yes: WNL HENT: Yes: WNL Neck: Yes: WNL Cardiovascular: Yes: Pulse Irregular, S1, S2 Respiratory: Yes: Bibasilar Rales, no wheeze Gastrointestinal: Yes: Normal Bowel Sounds, Soft Extremities: Yes: WNL Edema: No Labs: Laboratory Results - last 24 hr 08/15/18 08/16/18 08/16/18 06:10 06:35 06:35 WBC 9.0 RBC 3.56 L Hgb 9.7 L Hct 31.4 L MCV 88.2 MCH 27.3 MCHC 30.9 L RDW 20.0 H Plt Count 260 MPV 7.5 Absolute Neuts (auto) 5.6 Neutrophils % 62.9 Neutrophils % (Manual) 73.2 72.6 Band Neutrophils % 0.0 0.0 Lymphocytes % 13.9 Lymphocytes % (Manual) 11.4 8.4 D Monocytes % 21.7 H Monocytes % (Manual) 11 H 15 H Eosinophils % 1.1 Eosinophils % (Manual) 1.0 1.1 Basophils % 0.4 Basophils % (Manual) 0.0 0.0 Myelocytes % (Man) 0 0 Promyelocytes % (Man) 0 0 Blast Cells % (Manual) 0 0 Nucleated RBC % 0 Metamyelocytes 0 0 Hypochromia 0 0 Platelet Estimate Normal Normal Polychromasia 1+ 1+ Poikilocytosis 1+ 0 Anisocytosis 0 1+ Microcytosis 0 1+ Macrocytosis 0 0 Fragmented RBCs 1+ Puncture Site ABG pH ABG pCO2 at Pt Temp ABG pO2 at Pt Temp ABG HCO3 ABG O2 Sat (Measured) ABG O2 Content ABG Base Excess Carlos Test O2 Delivery Device Oxygen Flow Rate PEEP Sodium 141 Potassium 4.4 Chloride 99 Carbon Dioxide 37 H Anion Gap 4 L BUN 26 H Creatinine 1.4 H Creat Clearance w eGFR 35.41 Random Glucose 120 H Calcium 8.9 Phosphorus 3.1 Magnesium 1.8 Total Bilirubin 0.6 AST 23 ALT 18 Alkaline Phosphatase 66 B-Natriuretic Peptide 9563.6 H Total Protein 5.2 L Albumin 2.5 L 08/16/18 09:19 WBC RBC Hgb Hct MCV MCH MCHC RDW Plt Count MPV Absolute Neuts (auto) Neutrophils % Neutrophils % (Manual) Band Neutrophils % Lymphocytes % Lymphocytes % (Manual) Monocytes % Monocytes % (Manual) Eosinophils % Eosinophils % (Manual) Basophils % Basophils % (Manual) Myelocytes % (Man) Promyelocytes % (Man) Blast Cells % (Manual) Nucleated RBC % Metamyelocytes Hypochromia Platelet Estimate Polychromasia Poikilocytosis Anisocytosis Microcytosis Macrocytosis Fragmented RBCs Puncture Site Right radial ABG pH 7.34 L ABG pCO2 at Pt Temp 69.1 H* ABG pO2 at Pt Temp 120.0 H ABG HCO3 36.7 H ABG O2 Sat (Measured) 98.9 ABG O2 Content 13.1 L ABG Base Excess 9.6 H Carlos Test Positive O2 Delivery Device Nasal cannula Oxygen Flow Rate 3l PEEP 0.0 Sodium Potassium Chloride Carbon Dioxide Anion Gap BUN Creatinine Creat Clearance w eGFR Random Glucose Calcium Phosphorus Magnesium Total Bilirubin AST ALT Alkaline Phosphatase B-Natriuretic Peptide Total Protein Albumin Problem List - Problems (1) Acute on chronic diastolic (congestive) heart failure Code(s): I50.33 - ACUTE ON CHRONIC DIASTOLIC (CONGESTIVE) HEART FAILURE (2) Acute on chronic systolic (congestive) heart failure Code(s): I50.23 - ACUTE ON CHRONIC SYSTOLIC (CONGESTIVE) HEART FAILURE (3) Elevated brain natriuretic peptide (BNP) level Code(s): R79.89 - OTHER SPECIFIED ABNORMAL FINDINGS OF BLOOD CHEMISTRY (4) Shortness of breath Code(s): R06.02 - SHORTNESS OF BREATH (5) HTN (hypertension) Code(s): I10 - ESSENTIAL (PRIMARY) HYPERTENSION Qualifiers: Hypertension type: essential hypertension Qualified Code(s): I10 - Essential (primary) hypertension (6) Hypercholesterolemia Code(s): E78.00 - PURE HYPERCHOLESTEROLEMIA, UNSPECIFIED (7) Osteoarthritis Code(s): M19.90 - UNSPECIFIED OSTEOARTHRITIS, UNSPECIFIED SITE Qualifiers: Osteoarthritis location: knee Osteoarthritis type: unspecified Laterality : right Qualified Code(s): M17.11 - Unilateral primary osteoarthritis, right knee (8) Acute respiratory failure with hypoxia and hypercapnia Code(s): J96.01 - ACUTE RESPIRATORY FAILURE WITH HYPOXIA; J96.02 - ACUTE RESPIRATORY FAILURE WITH HYPERCAPNIA (9) Pleural effusion Code(s): J90 - PLEURAL EFFUSION, NOT ELSEWHERE CLASSIFIED Assessment/Plan IMP ACUTE HYPOXEMIC/HYPERCAPNEIC RESPIRATORY FAILURE ACUTE ON CHRONIC CHF PULMONARY HTN PNEUMONIA AFIB H/O HTN HLD RESTLESS LEG SYNDROME PLAN NIPPV NEEDED INHALED BRONCHODILATORS LASIX PER CARDIOLOGY INHALED BRONCHODILATORS ABX PER ID O2 TO MAINTAIN O2 SAT >92% CHEST PT DR PAULA
--- NOTE | 2018-08-16 14:07 | PN ---
Progress Note, [employer] - Note Progress Note: Selected Entries 08/15/18 08/15/18 08/15/18 01:20 06:00 08:45 Breakfast 75% Supper Temperature 98.2 F 98 F 98.2 F 08/15/18 08/15/18 08/15/18 14:12 17:30 19:58 Breakfast Supper 25% Temperature 97.7 F 98.8 F 08/15/18 08/16/18 08/16/18 21:00 02:00 08:48 Breakfast Supper Temperature 98.1 F 98.1 F 98.0 F 08/16/18 12:08 Breakfast 50% Supper Temperature Laboratory Tests 08/16/18 06:35 WBC 9.0 On puree/nectar thic liquids.
--- NOTE | 2018-08-16 16:56 | PN ---
Progress Note, Physician History of Present Illness: Seated in bed Lethargic Breathing non-labored + cough noted Afebrile WBC WNL - Current Medication List Current Medications: Active Medications Albuterol Sulfate (Ventolin 0.083% Nebulizer Soln -) 1 amp NEB Q4H PRN PRN Reason: SHORT OF BREATH/WHEEZING Last Admin: 08/16/18 09:27 Dose: 1 amp Apixaban (Eliquis -) 2.5 mg PO BID [facility] Last Admin: 08/16/18 10:34 Dose: 2.5 mg Atorvastatin Calcium (Lipitor -) 10 mg PO HS [facility] Last Admin: 08/15/18 23:01 Dose: 10 mg Diltiazem HCl (Cardizem -) 90 mg PO BID [facility] Last Admin: 08/16/18 10:34 Dose: 90 mg Docusate Sodium (Colace -) 100 mg PO DAILY [facility] Last Admin: 08/16/18 10:34 Dose: 100 mg Furosemide (Lasix Injection -) 20 mg IVPUSH DAILY [facility] Last Admin: 08/16/18 10:38 Dose: 20 mg Guaifenesin/Codeine Phosphate (Robitussin Ac -) 5 ml PO TID PRN PRN Reason: COUGH Last Admin: 08/15/18 23:04 Dose: 5 ml Levofloxacin (Levaquin 250 Mg Premixed Ivpb -) 250 mg in 50 mls @ 50 mls/hr IVPB DAILY [facility]; Protocol Last Admin: 08/16/18 10:37 Dose: 50 mls/hr Levalbuterol HCl (Xopenex) 0.63 mg IH RTID [facility] Last Admin: 08/16/18 13:50 Dose: 0.63 mg Magnesium Oxide (Mag-Ox -) 800 mg PO DAILY [facility] Stop: 08/17/18 10:01 Last Admin: 08/16/18 10:34 Dose: 800 mg Melatonin (Melatonin) 5 mg PO HS PRN PRN Reason: INSOMNIA Metoprolol Succinate (Toprol Xl -) 25 mg PO DAILY [facility] Last Admin: 08/16/18 10:34 Dose: 25 mg Ropinirole HCl (Requip -) 1 mg PO DAILY [facility] Last Admin: 08/16/18 10:34 Dose: 1 mg Timolol Maleate (Timoptic 0.5%) 1 drop OU BID [facility] Last Admin: 08/16/18 11:27 Dose: 1 drop - Objective Vital Signs: Vital Signs Temperature 98.0 F 08/16/18 08:48 Pulse Rate 102 H 08/16/18 14:50 Respiratory Rate 20 08/16/18 08:48 Blood Pressure 103/53 L 08/16/18 14:50 O2 Sat by Pulse Oximetry (%) 96 08/16/18 10:10 Constitutional: Yes: No Distress Eyes: Yes: Conjunctiva Clear Cardiovascular: Yes: Regular Rate and Rhythm, S1, S2 Respiratory: Yes: Other (crepitations bases) Gastrointestinal: Yes: Normal Bowel Sounds, Soft. No: Tenderness Edema: Yes Labs: CBC, BMP 08/16/18 06:35 08/16/18 06:35 INR, PTT INR 1.41 (0.83-1.09) H 08/10/18 21:40 Assessment/Plan CHF Pneumonia, effusions + Urine c/s = contamination PCN Continue empiric levaquin Discussed with son at bedside
[2018-08-16] MEDS: guaiFENesin/CODEINE 5 ML UNIT-DOSE CUPS PO PRN (18:51)
[2018-08-16] MEDS: ATORVASTATIN CA 10 MG TABLET (FP) PO SCH (21:34)
[2018-08-16] MEDS: MELATONIN 5 MG TABLETS PO PRN (21:39)
[2018-08-17 06:45] LABS: BASO % 0.6 % (0-2.0); EOS % 1.2 % (0-4.5); HEMATOCRIT 30.4 % (32.4-45.2); HEMOGLOBIN 9.4 GM/dL (10.7-15.3); LYMPH % 14.7 % (8-40); MCH 27.3 pg (25.7-33.7); MCHC 30.8 g/dl (32.0-36.0); MEAN CELL VOLUME 88.5 fl (80-96); MEAN PLT VOLUME 7.6 fl (7.5-11.1); MONO % 22.8 % (3.8-10.2); NEUT % 60.7 % (42.8-82.8); PLATELET COUNT 248 K/MM3 (134-434); RBC 3.43 M/mm3 (3.60-5.2); RDW 20.5 % (11.6-15.6)
[2018-08-17 07:43] LABS: ALBUMIN 2.6 g/dl (3.4-5.0); ALK PHOS 64 U/L (45-117); ANION GAP 4 MMOL/L (8-16); BILIRUBIN,TOTAL 0.6 mg/dL (0.2-1); BLOOD UREA NITROGEN 32 mg/dL (7-18); CALCIUM 8.7 mg/dL (8.5-10.1); CHLORIDE 99 mmol/L (98-107); CO2 39 mmol/L (21-32); CREATININE 1.4 mg/dL (0.55-1.3); GLUCOSE,RANDOM 106 mg/dL (74-106); MAGNESIUM 2.1 mg/dL (1.8-2.4); PHOSPHOROUS 3.4 mg/dL (2.5-4.9); POTASSIUM 4.2 mmol/L (3.5-5.1); SGOT/AST 21 U/L (15-37); SGPT/ALT 22 U/L (13-61); SODIUM 142 mmol/L (136-145); TOT PROT 5.3 g/dl (6.4-8.2)
[2018-08-17] MEDS: APIXABAN 2.5 MG TABLET PO SCH ×2 (09:18→21:40)
[2018-08-17] MEDS: metoPROLOL SUCCINATE 25 MG TAB.SR.24H (FP) PO SCH (09:18)
[2018-08-17] MEDS: dilTIAZem HCL 30 MG TABLET (FP) PO SCH ×2 (09:18→21:40)
[2018-08-17] MEDS: FUROSEMIDE 40 MG/4 ML INJECTABLE VIAL IVPUSH SCH (09:18)
[2018-08-17] MEDS: DOCUSATE SODIUM 100 MG CAPSULE (FP) PO SCH (09:18)
[2018-08-17] MEDS: MAGNESIUM OXIDE 400 MG TABLET (FP) PO SCH (09:18)
[2018-08-17] MEDS: TIMOLOL 0.5% OPHTHALMIC SOL 5 ML BOTTLE OU SCH ×2 (09:19→21:47)
[2018-08-17] MEDS ORDERED: PT OWN MED DRAWER 7, Y5N ONE ×2 (09:20→20:03)
[2018-08-17] MEDS: rOPINIRole HCL 1 MG TABLET (FP) PO SCH (09:21)
[2018-08-17] MEDS: LEVALBUTEROL HCL 0.63 MG/3 ML VIAL.NEB. IH SCH ×3 (09:39→20:17)
--- NOTE | 2018-08-17 11:36 | PN ---
Progress Note, Physician History of Present Illness: PULMONARY ALERT,NO DISTRESS,-TACHYPNEA. ON NASAL CANNULA - Current Medication List Current Medications: Active Medications Albuterol Sulfate (Ventolin 0.083% Nebulizer Soln -) 1 amp NEB Q4H PRN PRN Reason: SHORT OF BREATH/WHEEZING Last Admin: 08/16/18 09:27 Dose: 1 amp Apixaban (Eliquis -) 2.5 mg PO BID [facility] Last Admin: 08/17/18 09:18 Dose: 2.5 mg Atorvastatin Calcium (Lipitor -) 10 mg PO HS [facility] Last Admin: 08/16/18 21:34 Dose: 10 mg Diltiazem HCl (Cardizem -) 90 mg PO BID [facility] Last Admin: 08/17/18 09:18 Dose: 90 mg Docusate Sodium (Colace -) 100 mg PO DAILY [facility] Last Admin: 08/17/18 09:18 Dose: 100 mg Furosemide (Lasix Injection -) 20 mg IVPUSH DAILY [facility] Last Admin: 08/17/18 09:18 Dose: 20 mg Guaifenesin/Codeine Phosphate (Robitussin Ac -) 5 ml PO TID PRN PRN Reason: COUGH Last Admin: 08/16/18 18:51 Dose: 5 ml Levofloxacin (Levaquin 250 Mg Premixed Ivpb -) 250 mg in 50 mls @ 50 mls/hr IVPB DAILY [facility]; Protocol Last Admin: 08/17/18 09:17 Dose: 50 mls/hr Levalbuterol HCl (Xopenex) 0.63 mg IH RTID [facility] Last Admin: 08/17/18 09:39 Dose: 0.63 mg Melatonin (Melatonin) 5 mg PO HS PRN PRN Reason: INSOMNIA Last Admin: 08/16/18 21:39 Dose: 5 mg Metoprolol Succinate (Toprol Xl -) 25 mg PO DAILY [facility] Last Admin: 08/17/18 09:18 Dose: 25 mg Ropinirole HCl (Requip -) 1 mg PO DAILY [facility] Last Admin: 08/17/18 09:21 Dose: 1 mg Timolol Maleate (Timoptic 0.5%) 1 drop OU BID [facility] Last Admin: 08/17/18 09:19 Dose: 1 drop - Objective Vital Signs: Vital Signs Temperature 98 F 08/17/18 10:00 Pulse Rate 110 H 08/17/18 10:00 Respiratory Rate 18 08/17/18 10:00 Blood Pressure 102/62 08/17/18 10:00 O2 Sat by Pulse Oximetry (%) 95 08/17/18 08:30 Constitutional: Yes: Calm, Thin Eyes: Yes: WNL HENT: Yes: WNL Neck: Yes: WNL Cardiovascular: Yes: Pulse Irregular, S1, S2 Respiratory: Yes: Rales (BIBASILAR RALES) Gastrointestinal: Yes: Normal Bowel Sounds, Soft Extremities: Yes: WNL Edema: No Labs: CBC, BMP 08/17/18 05:30 08/17/18 05:30 INR, PTT INR 1.41 (0.83-1.09) H 08/10/18 21:40 Problem List - Problems (1) Acute on chronic diastolic (congestive) heart failure Code(s): I50.33 - ACUTE ON CHRONIC DIASTOLIC (CONGESTIVE) HEART FAILURE (2) Acute on chronic systolic (congestive) heart failure Code(s): I50.23 - ACUTE ON CHRONIC SYSTOLIC (CONGESTIVE) HEART FAILURE (3) Elevated brain natriuretic peptide (BNP) level Code(s): R79.89 - OTHER SPECIFIED ABNORMAL FINDINGS OF BLOOD CHEMISTRY (4) Shortness of breath Code(s): R06.02 - SHORTNESS OF BREATH (5) HTN (hypertension) Code(s): I10 - ESSENTIAL (PRIMARY) HYPERTENSION Qualifiers: Hypertension type: essential hypertension Qualified Code(s): I10 - Essential (primary) hypertension (6) Hypercholesterolemia Code(s): E78.00 - PURE HYPERCHOLESTEROLEMIA, UNSPECIFIED (7) Osteoarthritis Code(s): M19.90 - UNSPECIFIED OSTEOARTHRITIS, UNSPECIFIED SITE Qualifiers: Osteoarthritis location: knee Osteoarthritis type: unspecified Laterality : right Qualified Code(s): M17.11 - Unilateral primary osteoarthritis, right knee (8) Acute respiratory failure with hypoxia and hypercapnia Code(s): J96.01 - ACUTE RESPIRATORY FAILURE WITH HYPOXIA; J96.02 - ACUTE RESPIRATORY FAILURE WITH HYPERCAPNIA (9) Pleural effusion Code(s): J90 - PLEURAL EFFUSION, NOT ELSEWHERE CLASSIFIED Assessment/Plan IMP ACUTE HYPOXEMIC/HYPERCAPNEIC RESPIRATORY FAILURE ACUTE ON CHRONIC CHF PULMONARY HTN PNEUMONIA AFIB H/O HTN HLD RESTLESS LEG SYNDROME PLAN INHALED BRONCHODILATORS LASIX PER CARDIOLOGY INHALED BRONCHODILATORS ABX PER ID O2 TO MAINTAIN O2 SAT >92% NIPPV NEEDED CHEST PT DR GODDARD Problem List - Problems (1) Acute on chronic diastolic (congestive) heart failure Code(s): I50.33 - ACUTE ON CHRONIC DIASTOLIC (CONGESTIVE) HEART FAILURE (2) Acute on chronic systolic (congestive) heart failure Code(s): I50.23 - ACUTE ON CHRONIC SYSTOLIC (CONGESTIVE) HEART FAILURE (3) Elevated brain natriuretic peptide (BNP) level Code(s): R79.89 - OTHER SPECIFIED ABNORMAL FINDINGS OF BLOOD CHEMISTRY (4) Shortness of breath Code(s): R06.02 - SHORTNESS OF BREATH (5) HTN (hypertension) Code(s): I10 - ESSENTIAL (PRIMARY) HYPERTENSION Qualifiers: Hypertension type: essential hypertension Qualified Code(s): I10 - Essential (primary) hypertension (6) Hypercholesterolemia Code(s): E78.00 - PURE HYPERCHOLESTEROLEMIA, UNSPECIFIED (7) Osteoarthritis Code(s): M19.90 - UNSPECIFIED OSTEOARTHRITIS, UNSPECIFIED SITE Qualifiers: Osteoarthritis location: knee Osteoarthritis type: unspecified Laterality : right Qualified Code(s): M17.11 - Unilateral primary osteoarthritis, right knee (8) Acute respiratory failure with hypoxia and hypercapnia Code(s): J96.01 - ACUTE RESPIRATORY FAILURE WITH HYPOXIA; J96.02 - ACUTE RESPIRATORY FAILURE WITH HYPERCAPNIA (9) Pleural effusion Code(s): J90 - PLEURAL EFFUSION, NOT ELSEWHERE CLASSIFIED
[2018-08-17 12:03] LABS: ANISOCYTOSIS 1+; MACROCYTOSIS 0; PLATELET ESTIMATE NORMAL
--- NOTE | 2018-08-17 12:38 | PN ---
Teaching Attending Note Name of Resident: Brenda Jameson ATTENDING PHYSICIAN STATEMENT I saw and evaluated the patient. I reviewed the resident's note and discussed the case with the resident. I agree with the resident's findings and plan as documented with exceptions below. SUBJECTIVE: Patient seen and examined, more awake and interactive today, denies pain or dyspnea. OBJECTIVE: Vital Signs Period Temp Pulse Resp BP Sys/Kraus Pulse Ox Last 24 Hr 97.6 F-98.4 F 90-110 18-18 100-114/48-62 95-99 Intake & Output 08/14/18 08/15/18 08/16/18 08/17/18 23:59 23:59 23:59 23:59 Intake Total 250 210 430 110 Output Total 710 800 200 Balance 250 -500 -370 -90 Weight 147 lb 3.2 oz 146 lb 14.4 oz 142 lb 9.6 oz General: lying almost flat in bed in no acute distress Neck: improved neck vein distension Chest: Decreased breath sounds at bases, still with poor effort, no rales or wheezing appreciated Abdomen:soft, NT Extremities: 1+ pedal edema Active Medications Albuterol Sulfate (Ventolin 0.083% Nebulizer Soln -) 1 amp NEB Q4H PRN PRN Reason: SHORT OF BREATH/WHEEZING Last Admin: 08/16/18 09:27 Dose: 1 amp Apixaban (Eliquis -) 2.5 mg PO BID [facility] Last Admin: 08/17/18 09:18 Dose: 2.5 mg Atorvastatin Calcium (Lipitor -) 10 mg PO HS [facility] Last Admin: 08/16/18 21:34 Dose: 10 mg Diltiazem HCl (Cardizem -) 90 mg PO BID [facility] Last Admin: 08/17/18 09:18 Dose: 90 mg Docusate Sodium (Colace -) 100 mg PO DAILY [facility] Last Admin: 08/17/18 09:18 Dose: 100 mg Furosemide (Lasix -) 40 mg PO DAILY [facility] Guaifenesin/Codeine Phosphate (Robitussin Ac -) 5 ml PO TID PRN PRN Reason: COUGH Last Admin: 08/16/18 18:51 Dose: 5 ml Levalbuterol HCl (Xopenex) 0.63 mg IH RTID [facility] Last Admin: 08/17/18 09:39 Dose: 0.63 mg Levofloxacin (Levaquin -) 250 mg PO DAILY [facility] Melatonin (Melatonin) 5 mg PO HS PRN PRN Reason: INSOMNIA Last Admin: 08/16/18 21:39 Dose: 5 mg Metoprolol Succinate (Toprol Xl -) 25 mg PO DAILY [facility] Last Admin: 08/17/18 09:18 Dose: 25 mg Ropinirole HCl (Requip -) 1 mg PO DAILY [facility] Last Admin: 08/17/18 09:21 Dose: 1 mg Timolol Maleate (Timoptic 0.5%) 1 drop OU BID [facility] Last Admin: 08/17/18 09:19 Dose: 1 drop Laboratory Results - last 24 hr 08/17/18 08/17/18 05:30 05:30 WBC 9.0 RBC 3.43 L Hgb 9.4 L Hct 30.4 L MCV 88.5 MCH 27.3 MCHC 30.8 L RDW 20.5 H Plt Count 248 MPV 7.6 Absolute Neuts (auto) 5.5 Neutrophils % 60.7 Neutrophils % (Manual) 67.4 Band Neutrophils % 0.0 Lymphocytes % 14.7 Lymphocytes % (Manual) 14.3 D Monocytes % 22.8 H Monocytes % (Manual) 15 H Eosinophils % 1.2 Eosinophils % (Manual) 2.0 D Basophils % 0.6 Basophils % (Manual) 0.0 Myelocytes % (Man) 0 Promyelocytes % (Man) 0 Blast Cells % (Manual) 0 Nucleated RBC % 0 Metamyelocytes 0 Hypochromia 1+ Platelet Estimate Normal Polychromasia 1+ Poikilocytosis 0 Anisocytosis 1+ Microcytosis 1+ Macrocytosis 0 Sodium 142 Potassium 4.2 Chloride 99 Carbon Dioxide 39 H Anion Gap 4 L BUN 32 H Creatinine 1.4 H Creat Clearance w eGFR 35.41 Random Glucose 106 Calcium 8.7 Phosphorus 3.4 Magnesium 2.1 Total Bilirubin 0.6 AST 21 ALT 22 Alkaline Phosphatase 64 Total Protein 5.3 L Albumin 2.6 L Telemetry: HR 90s-120s, overall improved rate ASSESSMENT AND PLAN: 88 yof with PMHx of anemia, HTN, HLD, pericardial effusion, diastolic congestive heart failure, atrial fibrillation (on Eliquis), and restless leg syndrome, admitted with acute hypoxic/hypercapneic respiratory failure. -Acute hypoxic/hypercapneic respiratory failure -Bibasilar/JASBIR CAP -Acute on chronic diastolic heart failure exacerbation -ABDOUL, suspect from aggressive diuresis -Contraction alkalosis. -Pulmonary HTN -Afib with tachy keren syndrome -Lower uncomplicated E. Coli/gp d streptococcus. -Urinary retention -AMs, suspect toxic metabolic encephalopathy from above -Restless leg syndrome Plan: Bipap yesterday, refused overnight. More awake, exam improving. Cr stable. Change lasix to 40 mg po from tomorrow. Change levaquin to 500 mg daily po day 8,discuss with ID about duration. Daily weights and renal function monitoring. Pulmonary/cardiology input appreciated. Telemetry reviewed. Cardizem/metoprolol. Caridology input appreciated. Eliquis. 2d echo results reviewed. Standing and prn nebs. Blood cx/RSV/legionella/Flu swab neg. Kaufman placed overnight. Dysphagia pureed with nectar thick liquids with aspiration precautions. Keep K > 4 and Mg > 2 Repete PO k, mg prn. DVTPPX eliquis PT eval noted. Discussed with CMl, anticipate SNF on Monday if continues to improve. Code status/DNR/DNI dispo likely SNF on Monday if no new concerns and disposition arranged.
--- NOTE | 2018-08-17 16:50 | PN ---
Progress Note, Physician History of Present Illness: Seated in bed Lethargic Breathing non-labored + cough continues Afebrile WBC WNL - Current Medication List Current Medications: Active Medications Albuterol Sulfate (Ventolin 0.083% Nebulizer Soln -) 1 amp NEB Q4H PRN PRN Reason: SHORT OF BREATH/WHEEZING Last Admin: 08/16/18 09:27 Dose: 1 amp Apixaban (Eliquis -) 2.5 mg PO BID [facility] Last Admin: 08/17/18 09:18 Dose: 2.5 mg Atorvastatin Calcium (Lipitor -) 10 mg PO HS [facility] Last Admin: 08/16/18 21:34 Dose: 10 mg Diltiazem HCl (Cardizem -) 90 mg PO BID [facility] Last Admin: 08/17/18 09:18 Dose: 90 mg Docusate Sodium (Colace -) 100 mg PO DAILY [facility] Last Admin: 08/17/18 09:18 Dose: 100 mg Furosemide (Lasix -) 40 mg PO DAILY [facility] Guaifenesin/Codeine Phosphate (Robitussin Ac -) 5 ml PO TID PRN PRN Reason: COUGH Last Admin: 08/16/18 18:51 Dose: 5 ml Levalbuterol HCl (Xopenex) 0.63 mg IH RTID [facility] Last Admin: 08/17/18 13:48 Dose: 0.63 mg Levofloxacin (Levaquin -) 250 mg PO DAILY@0600 [facility] Melatonin (Melatonin) 5 mg PO HS PRN PRN Reason: INSOMNIA Last Admin: 08/16/18 21:39 Dose: 5 mg Metoprolol Succinate (Toprol Xl -) 25 mg PO DAILY [facility] Last Admin: 08/17/18 09:18 Dose: 25 mg Ropinirole HCl (Requip -) 1 mg PO DAILY [facility] Last Admin: 08/17/18 09:21 Dose: 1 mg Timolol Maleate (Timoptic 0.5%) 1 drop OU BID [facility] Last Admin: 08/17/18 09:19 Dose: 1 drop - Objective Vital Signs: Vital Signs Temperature 97.5 F L 08/17/18 14:27 Pulse Rate 82 08/17/18 14:27 Respiratory Rate 18 08/17/18 10:00 Blood Pressure 109/56 L 08/17/18 14:27 O2 Sat by Pulse Oximetry (%) 95 08/17/18 13:44 Constitutional: Yes: No Distress Eyes: Yes: Conjunctiva Clear Cardiovascular: Yes: Regular Rate and Rhythm, S1, S2 Respiratory: Yes: Diminished Gastrointestinal: Yes: Normal Bowel Sounds, Soft. No: Tenderness Edema: Yes Labs: CBC, BMP 08/17/18 05:30 08/17/18 05:30 INR, PTT INR 1.41 (0.83-1.09) H 08/10/18 21:40 Assessment/Plan CHF Pneumonia, effusions + Urine c/s = contamination PCN Continue empiric levaquin Discussed with son at bedside
--- NOTE | 2018-08-17 18:27 | PN ---
Physical Exam: SUBJECTIVE: Patient seen and examined this morning at bedside. Refused Bipap overnight. Denies fevers, chills, chest pain, SOB, nausea, vomiting. OBJECTIVE: Vital Signs Period Temp Pulse Resp BP Sys/Kraus Pulse Ox Last 24 Hr 97.5 F-98.4 F 82-110 18-18 100-114/48-62 95-99 Intake & Output 08/17/18 08/17/18 08/17/18 07:59 15:59 23:59 Intake Total 110 Output Total 200 Balance -90 GENERAL: A&Ox3, NAD, able to lie completely flat without difficulty HEAD: NCAT EYES: PERRL, EOMI ENT: Hard of hearing, oropharynx clear without exudates, moist mucous membranes NECK: supple, +JVD LUNGS: Rhonchi heard at the bases, on 3L NC HEART: Regular rate and rhythm, normal S1 and S2 ABDOMEN: Soft, nontender, not distended, + bowel sounds, no guarding EXTREMITIES: 2+ pulses, 1+ pitting edema b/l NEUROLOGICAL: Cranial nerves II-XII intact. Normal speech SKIN: Warm, dry, no rashes or lesions noted Laboratory Results - last 24 hr 08/17/18 08/17/18 05:30 05:30 WBC 9.0 RBC 3.43 L Hgb 9.4 L Hct 30.4 L MCV 88.5 MCH 27.3 MCHC 30.8 L RDW 20.5 H Plt Count 248 MPV 7.6 Absolute Neuts (auto) 5.5 Neutrophils % 60.7 Neutrophils % (Manual) 67.4 Band Neutrophils % 0.0 Lymphocytes % 14.7 Lymphocytes % (Manual) 14.3 D Monocytes % 22.8 H Monocytes % (Manual) 15 H Eosinophils % 1.2 Eosinophils % (Manual) 2.0 D Basophils % 0.6 Basophils % (Manual) 0.0 Myelocytes % (Man) 0 Promyelocytes % (Man) 0 Blast Cells % (Manual) 0 Nucleated RBC % 0 Metamyelocytes 0 Hypochromia 1+ Platelet Estimate Normal Polychromasia 1+ Poikilocytosis 0 Anisocytosis 1+ Microcytosis 1+ Macrocytosis 0 Sodium 142 Potassium 4.2 Chloride 99 Carbon Dioxide 39 H Anion Gap 4 L BUN 32 H Creatinine 1.4 H Creat Clearance w eGFR 35.41 Random Glucose 106 Calcium 8.7 Phosphorus 3.4 Magnesium 2.1 Total Bilirubin 0.6 AST 21 ALT 22 Alkaline Phosphatase 64 Total Protein 5.3 L Albumin 2.6 L Microbiology 08/10/18 20:00 Blood - Peripheral Venous Blood Culture - Final NO GROWTH AFTER 5 DAYS INCUBATION 08/10/18 20:50 Blood - Peripheral Venous Blood Culture - Final NO GROWTH AFTER 5 DAYS INCUBATION 08/10/18 21:50 Urine - Urine Clean Catch Urine Culture - Final Escherichia Coli Group D Strep Or Entero Coccus 08/11/18 10:41 Urine For Antigen Detection Legionella Antigen - Final 08/11/18 10:41 Urine For Antigen Detection Streptococcus pneumoniae Antigen (M - Final 08/11/18 03:51 Nasopharyngeal Swab Respiratory Syncytial Virus Ag - Final 08/11/18 03:51 Nasopharyngeal Swab Influenza Types A,B Antigen - Final 08/11/18 03:51 Nasopharyngeal Swab - Final Active Medications Albuterol Sulfate (Ventolin 0.083% Nebulizer Soln -) 1 amp NEB Q4H PRN PRN Reason: SHORT OF BREATH/WHEEZING Last Admin: 08/16/18 09:27 Dose: 1 amp Apixaban (Eliquis -) 2.5 mg PO BID [facility] Last Admin: 08/17/18 09:18 Dose: 2.5 mg Atorvastatin Calcium (Lipitor -) 10 mg PO HS [facility] Last Admin: 08/16/18 21:34 Dose: 10 mg Diltiazem HCl (Cardizem -) 90 mg PO BID [facility] Last Admin: 08/17/18 09:18 Dose: 90 mg Docusate Sodium (Colace -) 100 mg PO DAILY [facility] Last Admin: 08/17/18 09:18 Dose: 100 mg Furosemide (Lasix -) 40 mg PO DAILY [facility] Guaifenesin/Codeine Phosphate (Robitussin Ac -) 5 ml PO TID PRN PRN Reason: COUGH Last Admin: 08/16/18 18:51 Dose: 5 ml Levalbuterol HCl (Xopenex) 0.63 mg IH RTID [facility] Last Admin: 08/17/18 13:48 Dose: 0.63 mg Levofloxacin (Levaquin -) 250 mg PO DAILY@0600 [facility] Melatonin (Melatonin) 5 mg PO HS PRN PRN Reason: INSOMNIA Last Admin: 08/16/18 21:39 Dose: 5 mg Metoprolol Succinate (Toprol Xl -) 25 mg PO DAILY [facility] Last Admin: 08/17/18 09:18 Dose: 25 mg Ropinirole HCl (Requip -) 1 mg PO DAILY [facility] Last Admin: 08/17/18 09:21 Dose: 1 mg Timolol Maleate (Timoptic 0.5%) 1 drop OU BID [facility] Last Admin: 08/17/18 09:19 Dose: 1 drop IMAGING: -CXR (08/10): Imaging reveals a large heart, sclerotic knob, congestive changes and questionable left base infiltrate. Follow-up recommended -CXR (08/13): Increased opacification of the left hemithorax attributed to the pleural effusion, left lung atelectasis shift of mediastinal structures to the left side. Normal aeration of the lung right lung. No pneumothorax or large pleural effusion is seen. Clinically correlate for malignant process. -US Duplex 2 Legs: No DVT is identified involving either leg. Please see above. -EKG: ATRIAL FIBRILLATION WITH RAPID VENTRICULAR RESPONSE WITH PREMATURE VENTRICULAR OR ABERRANTLY CONDUCTED COMPLEXES, LEFT AXIS DEVIATION, QTc 482 -ECHO: LV systolic function is mildly reduced. Mild anterior wall hypokinesis. LA is moderately dilated, RA is mildly dilated. Mild MR, Moderate TR. Mild Pulmonic Valvular regurg, Small pericardial effusion. Pleural effusion present. -CT Chest without contrast: Bibasal consolidation and calcification the left upper lobe compatible with pneumonia. Small to moderate left and small right pleural effusion. Close follow-up CT scan of the chest in one to 2 weeks is recommended to assess 40 clearing of airspace disease and to rule out any underlying pathology. Multiple gallstones are present. ASSESSMENT/PLAN: 88 y/o F with a PMHx of Anemia, HTN, HLD, DCHF, AF (on Eliquis), restless leg syndrome presented from home for acute hypoxia sats 88%, with progressively worsening SOB, and productive cough for the past week as per son at bedside. 1. Acute hypoxic, Hypercapnic respiratory failure -Likely due to CHF exacerbation in the setting of URTI -Refused Bipap overnight -Flu Swab, RSV, Urine legionella and strep negative -Lasix 40mg PO starting tmrw -Strict I&Os, Daily weights, monitor renal function -Fluid restriction < 1L/day -ABG shows Contraction alkalosis; Placed on Bipap, titrate up as needed -Supplemental O2 to maintain sats >90% -ECHO: LV systolic function is mildly reduced. Mild anterior wall hypokinesis. Small pericardial effusion. Pleural effusion present. -Cardiology (Dr Zavala) consulted, appreciate rec's, Continue Cardizem, Continue Eliquis, Continue IV Lasix Goal BP < 140/90, Begin Metoprolol tartrate 12.5 mg BID, Can Convert to Toprol XL 25mg daily prior to discharge if remains well controlled. -CXR (08/10): Congestive changes and questionable left base infiltrate -Repeat CXR noted above -CT Chest: Bibasal consolidation and calcification the left upper lobe compatible with pneumonia. Small to moderate left and small right pleural effusion. -Pulmonology (Dr. Willoughby) Consulted, Appreciate rec's, Inhaled bronchodilators, NIPPV 2. Sepsis -Likely 2/2 CAP Atypical PNA -On admission was tachycardic 123, tachypnic 24, LA 2.4, WBC 11.1; Tachycardia and tachypnea have resolved, WBC 8.5, LA 1.2 -ID (Dr. Sousa) consulted, appreciate rec's -Continue Levaquin (Started on 08/10), Changed to PO 500mg daily tmrw -Urine cultures noted above, likely contaminanted -Blood cx NGTD 3. Tachy-Mark Syndrome -Tele strip reveals episodes of HR < 40 initially. Improved today -Diltiazem dose reduced to 90mg BID (previously 120mg BID) -Continue Toprol Xl 25 mg daily 4. Urinary retention -Mandujano catheter placed overnight (08/16) -Will maintain mandujano -Continue to monitor I&Os, Daily weights 5. ABDOUL -Likely from Diuretic use -Cr stable at 1.4 -PO Lasix from tmrw -Will continue to monitor and hydrate if Cr trends up 6. Hyponatremia -Likely due to volume overload, Improved -TSH, Free T4 noted, Low T3 7. Leg edema -In the setting of fluid overload and recent immobility -US Duplex 2 Legs: No DVT is identified involving either leg. Please see above. -IV Lasix 20mg 8. HTN -Cardiology (Dr Zavala) consulted, appreciate rec's, Goal BP < 140/90 (CKD): d/c hydralazine for now as beta rei introduced. Given episode of relative hypotension, will d/c hydralazine and observe BP trend. -Continue Diltiazem, Lasix, Lopressor; Hydralazine d/c'ed -Can start ACEI or ARB if renal function improves 9. Hx of HLD -Continue Lipitor 10 mg HS 10. Hx of Atrial fibrillation -Continue rate control with Diltiazem (Reduced dose) and Toprol XL -Continue Eliquis 2.5mg BID 11. FEN -PO fluids -Continue to monitor for hyponatremia; Keep K+ >4.0, Mag >2.0 -Dysphagia Pureed diet, [place] Thick liquids, Magic Cup, Ensure Pudding, Aspiration precautions 12. PPx -DVT: On home dose Eliquis Dispo:Tele inpatient; Will likely need SNF before dc Code status: DNR/DNI Visit type - Emergency Visit Emergency Visit: Yes ED Registration Date: 08/10/18 Care time: The patient presented to the Emergency Department on the above date and was hospitalized for further evaluation of their emergent condition. - New Patient This patient is new to me today: No - Critical Care Critical Care patient: No - Discharge Referral Referred to [facility] Med P.C.: No
[2018-08-17] MEDS: MELATONIN 5 MG TABLETS PO PRN (21:40)
[2018-08-17] MEDS: ATORVASTATIN CA 10 MG TABLET (FP) PO SCH (21:47)
[2018-08-18 06:33] LABS: BASO % 0.8 % (0-2.0); EOS % 1.7 % (0-4.5); HEMATOCRIT 31.1 % (32.4-45.2); HEMOGLOBIN 9.6 GM/dL (10.7-15.3); LYMPH % 15.4 % (8-40); MCH 27.1 pg (25.7-33.7); MCHC 30.8 g/dl (32.0-36.0); MEAN PLT VOLUME 7.5 fl (7.5-11.1); MONO % 20.2 % (3.8-10.2); NEUT % 61.9 % (42.8-82.8); PLATELET COUNT 248 K/MM3 (134-434); RBC 3.53 M/mm3 (3.60-5.2); RDW 19.6 % (11.6-15.6); WHITE BLOOD COUNT 8.5 K/mm3 (4.0-10.0)
[2018-08-18 07:32] LABS: ANION GAP 5 MMOL/L (8-16); BLOOD UREA NITROGEN 33 mg/dL (7-18); CALCIUM 9.2 mg/dL (8.5-10.1); CHLORIDE 99 mmol/L (98-107); CO2 39 mmol/L (21-32); CREATININE 1.4 mg/dL (0.55-1.3); GLUCOSE,RANDOM 109 mg/dL (74-106); MAGNESIUM 2.4 mg/dL (1.8-2.4); PHOSPHOROUS 2.6 mg/dL (2.5-4.9); POTASSIUM 4.2 mmol/L (3.5-5.1); SODIUM 143 mmol/L (136-145)
[2018-08-18] MEDS: LEVALBUTEROL HCL 0.63 MG/3 ML VIAL.NEB. IH SCH ×3 (07:42→20:33)
[2018-08-18] MEDS ORDERED: PT OWN MED DRAWER 7, Y5N ONE ×4 (08:09→19:54)
--- NOTE | 2018-08-18 08:28 | PN ---
Progress Note, Physician Chief Complaint: Pt alert; dislkes using the BIPAP mask. No chest pain. History of Present Illness: The patient is a 88 year old white female with a significant PMH of anemia, HTN , HLD, systolic (mildly reduced LVEF) and diastolic congestive heart failure, CKD stage III, atrial fibrillation (on Eliquis), restless leg syndrome, chronic knee pain with reduced ROM, who presents to the emergency department with progressively worsening shortness of breath and productive cough for the past week as per son at bedside. Patient states his cough is productive of green sputum with associated wheezing and shortness of breath. Son at bedside also states the patient has been more confused over the past few days. Patient is not on home O2. The patient endorses chronic lower extremity swelling, but denies chest pain, headache and dizziness. Denies fever, chills, nausea, vomit, diarrhea and constipation. Denies dysuria, frequency, urgency and hematuria. Allergies: NKA Past surgical history: Social history: No reported PCP: Dr. Salinas Pascual Special Education Tutor: Dr. Zavala - Current Medication List Current Medications: Active Medications Albuterol Sulfate (Ventolin 0.083% Nebulizer Soln -) 1 amp NEB Q4H PRN PRN Reason: SHORT OF BREATH/WHEEZING Last Admin: 08/16/18 09:27 Dose: 1 amp Apixaban (Eliquis -) 2.5 mg PO BID [facility] Last Admin: 08/17/18 21:40 Dose: 2.5 mg Atorvastatin Calcium (Lipitor -) 10 mg PO HS [facility] Last Admin: 08/17/18 21:47 Dose: 10 mg Diltiazem HCl (Cardizem -) 90 mg PO BID [facility] Last Admin: 08/17/18 21:40 Dose: 90 mg Docusate Sodium (Colace -) 100 mg PO DAILY [facility] Last Admin: 08/17/18 09:18 Dose: 100 mg Furosemide (Lasix -) 40 mg PO DAILY [facility] Guaifenesin/Codeine Phosphate (Robitussin Ac -) 5 ml PO TID PRN PRN Reason: COUGH Last Admin: 08/16/18 18:51 Dose: 5 ml Levalbuterol HCl (Xopenex) 0.63 mg IH RTID [facility] Last Admin: 08/17/18 20:17 Dose: 0.63 mg Levofloxacin (Levaquin -) 250 mg PO DAILY@0600 [facility] Last Admin: 08/18/18 06:08 Dose: 250 mg Melatonin (Melatonin) 5 mg PO HS PRN PRN Reason: INSOMNIA Last Admin: 08/17/18 21:40 Dose: 5 mg Metoprolol Succinate (Toprol Xl -) 25 mg PO DAILY [facility] Last Admin: 08/17/18 09:18 Dose: 25 mg Ropinirole HCl (Requip -) 1 mg PO DAILY [facility] Last Admin: 08/17/18 09:21 Dose: 1 mg Timolol Maleate (Timoptic 0.5%) 1 drop OU BID [facility] Last Admin: 08/17/18 21:47 Dose: 1 drop - Objective Vital Signs: Vital Signs Temperature 98.2 F 08/18/18 06:00 Pulse Rate 108 H 08/18/18 06:00 Respiratory Rate 20 08/18/18 06:00 Blood Pressure 117/60 08/18/18 06:00 O2 Sat by Pulse Oximetry (%) 97 08/18/18 00:20 Constitutional: Yes: Anxious, Thin Eyes: Yes: WNL HENT: Yes: WNL Neck: Yes: Decreased ROM Cardiovascular: Yes: Tachycardia, Pulse Irregular Respiratory: Yes: Diminished, Tachypnea Gastrointestinal: Yes: Soft ...Rectal Exam: Yes: Deferred Genitourinary: No: Anuria Breast(s): Yes: WNL Musculoskeletal: Yes: Muscle Weakness Extremities: Yes: Cool Edema: No Peripheral Pulses WNL: Yes Integumentary: Yes: WNL Neurological: Yes: Alert, Oriented, Weakness Psychiatric: Yes: Alert, Oriented, Other (anxious) Labs: CBC, BMP 08/18/18 05:30 08/18/18 05:30 INR, PTT INR 1.41 (0.83-1.09) H 08/10/18 21:40 - ....Imaging Chest X-ray: Image Reviewed (slight clearing Left) Cat Scan: Image Reviewed Problem List - Problems (1) Acute on chronic systolic (congestive) heart failure Assessment/Plan: On metoprolol and furosemide. Start ACEI or ARB if renal function improves. F/u BUn/Cr, electrolytes, daily weight, electrolytes. Code(s): I50.23 - ACUTE ON CHRONIC SYSTOLIC (CONGESTIVE) HEART FAILURE (2) Malignancy Assessment/Plan: r/o lung malignancy: ateletasis, pleural effusion, mediastinal stricutres left- sided. CT chest recommended to be repeated in 1-2 weeks. f/u with water truck driver. Code(s): C80.1 - MALIGNANT (PRIMARY) NEOPLASM, UNSPECIFIED (3) Elevated brain natriuretic peptide (BNP) level Code(s): R79.89 - OTHER SPECIFIED ABNORMAL FINDINGS OF BLOOD CHEMISTRY (4) Paroxysmal atrial fibrillation Assessment/Plan: On metoprolol and diltiazem for HR control. On apixaban for anticoagulation. Code(s): I48.0 - PAROXYSMAL ATRIAL FIBRILLATION (5) Pericardial effusion Code(s): I31.3 - PERICARDIAL EFFUSION (NONINFLAMMATORY) (6) Pneumonia Assessment/Plan: On Levaquin. F/u blood c/s. Code(s): J18.9 - PNEUMONIA, UNSPECIFIED ORGANISM Qualifiers: Pneumonia type: due to unspecified organism Laterality: left (7) Chronic kidney disease Code(s): N18.9 - CHRONIC KIDNEY DISEASE, UNSPECIFIED Qualifiers: Chronic kidney disease stage: stage 2 (mild) Qualified Code(s): N18.2 - Chronic kidney disease, stage 2 (mild) (8) HTN (hypertension) Code(s): I10 - ESSENTIAL (PRIMARY) HYPERTENSION Qualifiers: Hypertension type: essential hypertension Qualified Code(s): I10 - Essential (primary) hypertension (9) Hypercholesterolemia Assessment/Plan: Total cholesterol 96 mg/dL (03/16). On atorvastatin 10 mg daily. Code(s): E78.00 - PURE HYPERCHOLESTEROLEMIA, UNSPECIFIED (10) Osteoarthritis Assessment/Plan: chronic knee pains and decreased ROM. Code(s): M19.90 - UNSPECIFIED OSTEOARTHRITIS, UNSPECIFIED SITE Qualifiers: Osteoarthritis location: knee Osteoarthritis type: unspecified Laterality : right Qualified Code(s): M17.11 - Unilateral primary osteoarthritis, right knee (11) Renal dysfunction Code(s): N28.9 - DISORDER OF KIDNEY AND URETER, UNSPECIFIED
--- NOTE | 2018-08-18 08:37 | PN ---
Progress Note, Physician Chief Complaint: Pt alert; feels better; now on nasal cannula, and feels more comfortable History of Present Illness: The patient is a 88 year old white female with a significant PMH of anemia, HTN , HLD, systolic (mildly reduced LVEF) and diastolic congestive heart failure, CKD stage III, atrial fibrillation (on Eliquis), restless leg syndrome, chronic knee pain with reduced ROM, who presents to the emergency department with progressively worsening shortness of breath and productive cough for the past week as per son at bedside. Patient states his cough is productive of green sputum with associated wheezing and shortness of breath. Son at bedside also states the patient has been more confused over the past few days. Patient is not on home O2. The patient endorses chronic lower extremity swelling, but denies chest pain, headache and dizziness. Denies fever, chills, nausea, vomit, diarrhea and constipation. Denies dysuria, frequency, urgency and hematuria. Allergies: NKA Past surgical history: Social history: No reported PCP: Dr. Salinas Pascual Spray Unit Feeder: Dr. Zavala - Current Medication List Current Medications: Active Medications Albuterol Sulfate (Ventolin 0.083% Nebulizer Soln -) 1 amp NEB Q4H PRN PRN Reason: SHORT OF BREATH/WHEEZING Last Admin: 08/16/18 09:27 Dose: 1 amp Apixaban (Eliquis -) 2.5 mg PO BID [facility] Last Admin: 08/17/18 21:40 Dose: 2.5 mg Atorvastatin Calcium (Lipitor -) 10 mg PO HS [facility] Last Admin: 08/17/18 21:47 Dose: 10 mg Diltiazem HCl (Cardizem -) 90 mg PO BID [facility] Last Admin: 08/17/18 21:40 Dose: 90 mg Docusate Sodium (Colace -) 100 mg PO DAILY [facility] Last Admin: 08/17/18 09:18 Dose: 100 mg Furosemide (Lasix -) 40 mg PO DAILY [facility] Guaifenesin/Codeine Phosphate (Robitussin Ac -) 5 ml PO TID PRN PRN Reason: COUGH Last Admin: 08/16/18 18:51 Dose: 5 ml Levalbuterol HCl (Xopenex) 0.63 mg IH RTID [facility] Last Admin: 08/17/18 20:17 Dose: 0.63 mg Levofloxacin (Levaquin -) 250 mg PO DAILY@0600 [facility] Last Admin: 08/18/18 06:08 Dose: 250 mg Melatonin (Melatonin) 5 mg PO HS PRN PRN Reason: INSOMNIA Last Admin: 08/17/18 21:40 Dose: 5 mg Metoprolol Succinate (Toprol Xl -) 25 mg PO DAILY [facility] Last Admin: 08/17/18 09:18 Dose: 25 mg Ropinirole HCl (Requip -) 1 mg PO DAILY [facility] Last Admin: 08/17/18 09:21 Dose: 1 mg Timolol Maleate (Timoptic 0.5%) 1 drop OU BID [facility] Last Admin: 08/17/18 21:47 Dose: 1 drop - Objective Vital Signs: Vital Signs Temperature 98.2 F 08/18/18 06:00 Pulse Rate 108 H 08/18/18 06:00 Respiratory Rate 20 08/18/18 06:00 Blood Pressure 117/60 08/18/18 06:00 O2 Sat by Pulse Oximetry (%) 97 08/18/18 00:20 Constitutional: Yes: Calm Eyes: Yes: WNL HENT: Yes: Nasal Congestion Neck: Yes: Decreased ROM Cardiovascular: Yes: Pulse Irregular, S1 (varies in intensity), S2 Respiratory: Yes: Diminished, SOB on Exertion Gastrointestinal: Yes: Soft ...Rectal Exam: Yes: Deferred Genitourinary: No: Anuria Breast(s): Yes: WNL Musculoskeletal: Yes: Joint Stiffness, Muscle Weakness Extremities: Yes: Cool Edema: No Peripheral Pulses WNL: Yes Integumentary: Yes: WNL Neurological: Yes: Alert, Oriented, Weakness Psychiatric: Yes: Alert, Oriented, Other (anxeity/depression) Labs: CBC, BMP 08/18/18 05:30 08/18/18 05:30 INR, PTT INR 1.41 (0.83-1.09) H 08/10/18 21:40 Problem List - Problems (1) Acute on chronic systolic (congestive) heart failure Assessment/Plan: On metoprolol, diltiazem (mild systolic dysfunction) and furosemide. Start ACEI or ARB if renal function improves. F/u BUn/Cr, electrolytes, daily weight, electrolytes. Code(s): I50.23 - ACUTE ON CHRONIC SYSTOLIC (CONGESTIVE) HEART FAILURE (2) Malignancy Code(s): C80.1 - MALIGNANT (PRIMARY) NEOPLASM, UNSPECIFIED (3) Elevated brain natriuretic peptide (BNP) level Code(s): R79.89 - OTHER SPECIFIED ABNORMAL FINDINGS OF BLOOD CHEMISTRY (4) Paroxysmal atrial fibrillation Assessment/Plan: On metoprolol and diltiazem for HR control. On apixaban for anticoagulation. Code(s): I48.0 - PAROXYSMAL ATRIAL FIBRILLATION (5) Pericardial effusion Code(s): I31.3 - PERICARDIAL EFFUSION (NONINFLAMMATORY) (6) Pneumonia Assessment/Plan: On Levaquin. F/u blood c/s, ID f/u. Code(s): J18.9 - PNEUMONIA, UNSPECIFIED ORGANISM Qualifiers: Pneumonia type: due to unspecified organism Laterality: left (7) Chronic kidney disease Code(s): N18.9 - CHRONIC KIDNEY DISEASE, UNSPECIFIED Qualifiers: Chronic kidney disease stage: stage 2 (mild) Qualified Code(s): N18.2 - Chronic kidney disease, stage 2 (mild) (8) HTN (hypertension) Code(s): I10 - ESSENTIAL (PRIMARY) HYPERTENSION Qualifiers: Hypertension type: essential hypertension Qualified Code(s): I10 - Essential (primary) hypertension (9) Hypercholesterolemia Assessment/Plan: Total cholesterol 96 mg/dL (03/16). On atorvastatin 10 mg daily. Code(s): E78.00 - PURE HYPERCHOLESTEROLEMIA, UNSPECIFIED (10) Osteoarthritis Assessment/Plan: chronic knee pains and decreased ROM. Code(s): M19.90 - UNSPECIFIED OSTEOARTHRITIS, UNSPECIFIED SITE Qualifiers: Osteoarthritis location: knee Osteoarthritis type: unspecified Laterality : right Qualified Code(s): M17.11 - Unilateral primary osteoarthritis, right knee (11) Renal dysfunction Code(s): N28.9 - DISORDER OF KIDNEY AND URETER, UNSPECIFIED (12) Respiratory distress Assessment/Plan: acute/chronic hypoxic, hypercarbic. F/u regimen prescribed by driver education instructor. Code(s): R06.03 - ACUTE RESPIRATORY DISTRESS
--- NOTE | 2018-08-18 09:35 | PN ---
Physical Exam: SUBJECTIVE: Patient seen and examined. Asking for her son by the bedside. Laying almost flat in bed with nasal canular. Less coughing bouts on exam. On PO lasix. Looks improved. OBJECTIVE: Vital Signs Temp 98.2 F 08/18/18 06:00 Pulse 108 H 08/18/18 06:00 Resp 20 08/18/18 06:00 BP 117/60 08/18/18 06:00 Pulse Ox 97 08/18/18 00:20 Intake & Output 08/17/18 08/17/18 08/18/18 11:59 23:59 11:59 Intake Total 110 240 Output Total 200 600 Balance -90 -360 Weight 64.41 kg Intake: IV 10 Saline Lock 10 Oral 100 240 Output: Urine 200 600 Mandujano 200 600 Other: Voiding Method Indwelling Catheter Indwelling Catheter Bowel Movement No No Height 1.57 m Body Mass Index (BMI) 25.9 Vital Signs Period Temp Pulse Resp BP Sys/Kraus Pulse Ox Last 24 Hr 97.5 F-98.2 F 82-110 18-20 102-124/56-62 95-98 GENERAL: The patient is awake, alert, and fully oriented, in no acute distress. EYES: PERRL, extraocular movements intact, . ENT: moist mucous membranes. NECK: supple. LUNGS: Reduced Breath sounds bilaterally , no wheezes, no crackles, no accessory muscle use. HEART: irregular rate and rhythm, S1, S2 ABDOMEN: Soft, nontender, nondistended, normoactive bowel sounds EXTREMITIES: 2+ pulses, warm, well-perfused, mild bilateral pedal edema. NEUROLOGICAL: No facial asymmetry, able to move all extremities. Normal speech, gait not observed. PSYCH: Calling for son, appears anxious. CBC, BMP 08/18/18 05:30 08/18/18 05:30 Laboratory Results - last 24 hr 08/17/18 08/18/18 08/18/18 05:30 05:30 05:30 WBC 8.5 RBC 3.53 L Hgb 9.6 L Hct 31.1 L MCV 88.0 MCH 27.1 MCHC 30.8 L RDW 19.6 H Plt Count 248 MPV 7.5 Absolute Neuts (auto) 5.3 Neutrophils % 61.9 Neutrophils % (Manual) 67.4 Band Neutrophils % 0.0 Lymphocytes % 15.4 Lymphocytes % (Manual) 14.3 D Monocytes % 20.2 H Monocytes % (Manual) 15 H Eosinophils % 1.7 Eosinophils % (Manual) 2.0 D Basophils % 0.8 Basophils % (Manual) 0.0 Myelocytes % (Man) 0 Promyelocytes % (Man) 0 Blast Cells % (Manual) 0 Nucleated RBC % 0 Metamyelocytes 0 Hypochromia 1+ Platelet Estimate Normal Polychromasia 1+ Poikilocytosis 0 Anisocytosis 1+ Microcytosis 1+ Macrocytosis 0 Sodium 143 Potassium 4.2 Chloride 99 Carbon Dioxide 39 H Anion Gap 5 L BUN 33 H Creatinine 1.4 H Creat Clearance w eGFR 35.41 Random Glucose 109 H Calcium 9.2 Phosphorus 2.6 Magnesium 2.4 Active Medications Albuterol Sulfate (Ventolin 0.083% Nebulizer Soln -) 1 amp NEB Q4H PRN PRN Reason: SHORT OF BREATH/WHEEZING Last Admin: 08/16/18 09:27 Dose: 1 amp Apixaban (Eliquis -) 2.5 mg PO BID [facility] Last Admin: 08/17/18 21:40 Dose: 2.5 mg Atorvastatin Calcium (Lipitor -) 10 mg PO HS [facility] Last Admin: 08/17/18 21:47 Dose: 10 mg Diltiazem HCl (Cardizem -) 90 mg PO BID [facility] Last Admin: 08/17/18 21:40 Dose: 90 mg Docusate Sodium (Colace -) 100 mg PO DAILY [facility] Last Admin: 08/17/18 09:18 Dose: 100 mg Furosemide (Lasix -) 40 mg PO DAILY [facility] Guaifenesin/Codeine Phosphate (Robitussin Ac -) 5 ml PO TID PRN PRN Reason: COUGH Last Admin: 08/16/18 18:51 Dose: 5 ml Levalbuterol HCl (Xopenex) 0.63 mg IH RTID [facility] Last Admin: 08/17/18 20:17 Dose: 0.63 mg Levofloxacin (Levaquin -) 250 mg PO DAILY@0600 [facility] Last Admin: 08/18/18 06:08 Dose: 250 mg Melatonin (Melatonin) 5 mg PO HS PRN PRN Reason: INSOMNIA Last Admin: 08/17/18 21:40 Dose: 5 mg Metoprolol Succinate (Toprol Xl -) 25 mg PO DAILY [facility] Last Admin: 08/17/18 09:18 Dose: 25 mg Ropinirole HCl (Requip -) 1 mg PO DAILY [facility] Last Admin: 08/17/18 09:21 Dose: 1 mg Timolol Maleate (Timoptic 0.5%) 1 drop OU BID [facility] Last Admin: 08/17/18 21:47 Dose: 1 drop Ambulatory Orders Ropinirole HCl [Requip] 1 mg PO DAILY 04/10/17 Simvastatin 20 mg PO DAILY 04/10/17 Timolol 0.5% [Timoptic 0.5%] 1 drop OU BID 04/10/17 Apixaban [Eliquis] 2.5 mg PO BID #28 tablet 04/14/17 Allopurinol [Zyloprim -] 100 mg PO DAILY 09/25/17 Hydralazine HCl 10 mg PO BID 03/20/18 Allopurinol 100 mg PO DAILY 08/10/18 Diltiazem [Cardizem -] 120 mg PO BID 08/10/18 Docusate Sodium [Colace] 100 mg PO DAILY 08/10/18 Ropinirole HCl [Requip] 1 mg PO DAILY 08/10/18 Microbiology 08/10/18 20:00 Blood - Peripheral Venous Blood Culture - Final NO GROWTH AFTER 5 DAYS INCUBATION 08/10/18 20:50 Blood - Peripheral Venous Blood Culture - Final NO GROWTH AFTER 5 DAYS INCUBATION 08/10/18 21:50 Urine - Urine Clean Catch Urine Culture - Final Escherichia Coli Group D Strep Or Entero Coccus 08/11/18 10:41 Urine For Antigen Detection Legionella Antigen - Final 08/11/18 10:41 Urine For Antigen Detection Streptococcus pneumoniae Antigen (M - Final 08/11/18 03:51 Nasopharyngeal Swab Respiratory Syncytial Virus Ag - Final 08/11/18 03:51 Nasopharyngeal Swab Influenza Types A,B Antigen - Final 08/11/18 03:51 Nasopharyngeal Swab - Final IMAGING: -CXR (08/10): Imaging reveals a large heart, sclerotic knob, congestive changes and questionable left base infiltrate. Follow-up recommended -CXR (08/13): Increased opacification of the left hemithorax attributed to the pleural effusion, left lung atelectasis shift of mediastinal structures to the left side. Normal aeration of the lung right lung. No pneumothorax or large pleural effusion is seen. Clinically correlate for malignant process. -US Duplex 2 Legs: No DVT is identified involving either leg. Please see above. -EKG: ATRIAL FIBRILLATION WITH RAPID VENTRICULAR RESPONSE WITH PREMATURE VENTRICULAR OR ABERRANTLY CONDUCTED COMPLEXES, LEFT AXIS DEVIATION, QTc 482 -ECHO: LV systolic function is mildly reduced. Mild anterior wall hypokinesis. LA is moderately dilated, RA is mildly dilated. Mild MR, Moderate TR. Mild Pulmonic Valvular regurg, Small pericardial effusion. Pleural effusion present. -CT Chest without contrast: Bibasal consolidation and calcification the left upper lobe compatible with pneumonia. Small to moderate left and small right pleural effusion. Close follow-up CT scan of the chest in one to 2 weeks is recommended to assess 40 clearing of airspace disease and to rule out any underlying pathology. Multiple gallstones are present. ASSESSMENT/PLAN: 88 y/o F with a PMHx of Anemia, HTN, HLD, DCHF, AF (on Eliquis), restless leg syndrome presented from home for acute hypoxia sats 88%, with progressively worsening SOB, and productive cough for the past week as per son at bedside. Acute hypoxic, Hypercapnic respiratory failure Likely due to CHF exacerbation in the setting of PNA Pt does not like Bipap , ABG showed Contraction alkalosis; Had been Placed on Bipap, to titrate up as needed Flu Swab, RSV, Urine legionella and strep negative Lasix 40mg PO Strict I&Os, Daily weights, monitor renal function Fluid restriction < 1L/day Supplemental O2 to maintain sats >90% (on 3L) ECHO: LV systolic function is mildly reduced. Mild anterior wall hypokinesis. Small pericardial effusion. Pleural effusion present. Cardiology (Dr Zavala) consulted, appreciate rec's, Continue Cardizem reduced to 90mg from home 120bid, Continue Eliquis 2.5mg bid, Continue PO Lasix Goal BP < 140/90, Cont Toprol XL 25mg daily Pulmonology (Dr. Willoughby) Consulted, Appreciate rec's, Inhaled bronchodilators , NIPPV Pt appears optimized for SNF Will get pre and post and PT eval Sepsis Likely 2/2 CAP PNA Sepsis resolved On admission was tachycardic 123, tachypneic 24, LA 2.4, WBC 11.1; resolved ID (Dr. Sousa) consulted, appreciate rec's Continue Levaquin (Started on 08/10), Changed to PO 250mg daily Urine cultures noted above, likely contaminated Blood cx NGTD Tachy-Mark Syndrome Tele strip reveals episodes of HR < 40 initially. Improved today Diltiazem dose reduced to 90mg BID (previously 120mg BID) Continue Toprol Xl 25 mg daily Urinary retention Mandujano catheter placed (08/16) Will maintain mandujano Continue to monitor I&Os, Daily weights ABDOUL Likely from Diuretic use Cr stable at 1.4 PO Lasix from tmrw Will continue to monitor and hydrate if Cr trends up Hyponatremia Likely due to volume overload, Improved TSH, Free T4 noted, Low T3 Leg edema Most likely secondary to CHF exacerbation, much improved US Duplex 2 Legs: No DVT is identified involving either leg. Please see above. PO Lasix 40mg daily HTN Cardiology (Dr Zavala) consulted, appreciate rec's, Goal BP < 140/90 (CKD ): d/c hydralazine for now as beta rei introduced. Continue Diltiazem, Lasix, Toprol Can start ACEI or ARB if renal function improves, still on hold, Cr-1.4 Hx of HLD Continue Lipitor 10 mg HS Hx of Atrial fibrillation Continue rate control with Diltiazem (Reduced dose) and Toprol XL Continue Eliquis 2.5mg BID FEN PO fluids Monitor lytes Keep K+ >4.0, Mag >2.0 Dysphagia Pureed diet, [place] Thick liquids, Magic Cup, Ensure Pudding, Aspiration precautions PPx DVT: On home dose Eliquis Dispo: Tele inpatient; Will likely need SNF before dc D/W therapeutic case manager no available beds before Monday Code status: DNR/DNI Visit type - Emergency Visit Emergency Visit: Yes ED Registration Date: 08/10/18 Care time: The patient presented to the Emergency Department on the above date and was hospitalized for further evaluation of their emergent condition. - New Patient This patient is new to me today: No - Critical Care Critical Care patient: No - Discharge Referral Referred to [facility] Med P.C.: No
[2018-08-18] MEDS: APIXABAN 2.5 MG TABLET PO SCH ×2 (10:00→22:32)
--- NOTE | 2018-08-18 10:19 | PN ---
Progress Note, Physician History of Present Illness: PULMONARY ALERT,COMFORTABLE AT REST,+ MOIST COUGH,ON NASAL O2 SAT 99% - Current Medication List Current Medications: Active Medications Albuterol Sulfate (Ventolin 0.083% Nebulizer Soln -) 1 amp NEB Q4H PRN PRN Reason: SHORT OF BREATH/WHEEZING Last Admin: 08/16/18 09:27 Dose: 1 amp Apixaban (Eliquis -) 2.5 mg PO BID [facility] Last Admin: 08/17/18 21:40 Dose: 2.5 mg Atorvastatin Calcium (Lipitor -) 10 mg PO HS [facility] Last Admin: 08/17/18 21:47 Dose: 10 mg Diltiazem HCl (Cardizem -) 90 mg PO BID [facility] Last Admin: 08/17/18 21:40 Dose: 90 mg Docusate Sodium (Colace -) 100 mg PO DAILY [facility] Last Admin: 08/17/18 09:18 Dose: 100 mg Furosemide (Lasix -) 40 mg PO DAILY [facility] Guaifenesin/Codeine Phosphate (Robitussin Ac -) 5 ml PO TID PRN PRN Reason: COUGH Last Admin: 08/16/18 18:51 Dose: 5 ml Levalbuterol HCl (Xopenex) 0.63 mg IH RTID [facility] Last Admin: 08/18/18 07:42 Dose: 0.63 mg Levofloxacin (Levaquin -) 250 mg PO DAILY@0600 [facility] Last Admin: 08/18/18 06:08 Dose: 250 mg Melatonin (Melatonin) 5 mg PO HS PRN PRN Reason: INSOMNIA Last Admin: 08/17/18 21:40 Dose: 5 mg Metoprolol Succinate (Toprol Xl -) 25 mg PO DAILY [facility] Last Admin: 08/17/18 09:18 Dose: 25 mg Ropinirole HCl (Requip -) 1 mg PO DAILY [facility] Last Admin: 08/17/18 09:21 Dose: 1 mg Timolol Maleate (Timoptic 0.5%) 1 drop OU BID [facility] Last Admin: 08/17/18 21:47 Dose: 1 drop - Objective Vital Signs: Vital Signs Temperature 98.2 F 08/18/18 06:00 Pulse Rate 108 H 08/18/18 06:00 Respiratory Rate 20 08/18/18 06:00 Blood Pressure 117/60 08/18/18 06:00 O2 Sat by Pulse Oximetry (%) 97 08/18/18 00:20 Constitutional: Yes: Calm, Thin Eyes: Yes: WNL HENT: Yes: WNL Neck: Yes: WNL Cardiovascular: Yes: Pulse Irregular, S1, S2 Respiratory: Yes: Rales (BIBASILAR CRACKLES) Gastrointestinal: Yes: Normal Bowel Sounds, Soft Extremities: Yes: WNL Edema: No Labs: CBC, BMP 08/18/18 05:30 08/18/18 05:30 INR, PTT INR 1.41 (0.83-1.09) H 08/10/18 21:40 Problem List - Problems (1) Acute on chronic diastolic (congestive) heart failure Code(s): I50.33 - ACUTE ON CHRONIC DIASTOLIC (CONGESTIVE) HEART FAILURE (2) Acute on chronic systolic (congestive) heart failure Code(s): I50.23 - ACUTE ON CHRONIC SYSTOLIC (CONGESTIVE) HEART FAILURE (3) Elevated brain natriuretic peptide (BNP) level Code(s): R79.89 - OTHER SPECIFIED ABNORMAL FINDINGS OF BLOOD CHEMISTRY (4) Shortness of breath Code(s): R06.02 - SHORTNESS OF BREATH (5) HTN (hypertension) Code(s): I10 - ESSENTIAL (PRIMARY) HYPERTENSION Qualifiers: Hypertension type: essential hypertension Qualified Code(s): I10 - Essential (primary) hypertension (6) Hypercholesterolemia Code(s): E78.00 - PURE HYPERCHOLESTEROLEMIA, UNSPECIFIED (7) Osteoarthritis Code(s): M19.90 - UNSPECIFIED OSTEOARTHRITIS, UNSPECIFIED SITE Qualifiers: Osteoarthritis location: knee Osteoarthritis type: unspecified Laterality : right Qualified Code(s): M17.11 - Unilateral primary osteoarthritis, right knee (8) Acute respiratory failure with hypoxia and hypercapnia Code(s): J96.01 - ACUTE RESPIRATORY FAILURE WITH HYPOXIA; J96.02 - ACUTE RESPIRATORY FAILURE WITH HYPERCAPNIA (9) Pleural effusion Code(s): J90 - PLEURAL EFFUSION, NOT ELSEWHERE CLASSIFIED Assessment/Plan IMP ACUTE HYPOXEMIC/HYPERCAPNEIC RESPIRATORY FAILURE IMPROVING ACUTE ON CHRONIC CHF PULMONARY HTN PNEUMONIA AFIB H/O HTN HLD RESTLESS LEG SYNDROME PLAN INHALED BRONCHODILATORS LASIX PER CARDIOLOGY INHALED BRONCHODILATORS ABX PER ID O2 TO MAINTAIN O2 SAT >92% NIPPV NEEDED CHEST PT CHEST X-RAY DR GODDARD Problem List - Problems (1) Acute on chronic diastolic (congestive) heart failure Code(s): I50.33 - ACUTE ON CHRONIC DIASTOLIC (CONGESTIVE) HEART FAILURE (2) Acute on chronic systolic (congestive) heart failure Code(s): I50.23 - ACUTE ON CHRONIC SYSTOLIC (CONGESTIVE) HEART FAILURE (3) Elevated brain natriuretic peptide (BNP) level Code(s): R79.89 - OTHER SPECIFIED ABNORMAL FINDINGS OF BLOOD CHEMISTRY (4) Shortness of breath Code(s): R06.02 - SHORTNESS OF BREATH (5) HTN (hypertension) Code(s): I10 - ESSENTIAL (PRIMARY) HYPERTENSION Qualifiers: Hypertension type: essential hypertension Qualified Code(s): I10 - Essential (primary) hypertension (6) Hypercholesterolemia Code(s): E78.00 - PURE HYPERCHOLESTEROLEMIA, UNSPECIFIED (7) Osteoarthritis Code(s): M19.90 - UNSPECIFIED OSTEOARTHRITIS, UNSPECIFIED SITE Qualifiers: Osteoarthritis location: knee Osteoarthritis type: unspecified Laterality : right Qualified Code(s): M17.11 - Unilateral primary osteoarthritis, right knee (8) Acute respiratory failure with hypoxia and hypercapnia Code(s): J96.01 - ACUTE RESPIRATORY FAILURE WITH HYPOXIA; J96.02 - ACUTE RESPIRATORY FAILURE WITH HYPERCAPNIA (9) Pleural effusion Code(s): J90 - PLEURAL EFFUSION, NOT ELSEWHERE CLASSIFIED
[2018-08-18] MEDS: metoPROLOL SUCCINATE 25 MG TAB.SR.24H (FP) PO SCH (11:06)
[2018-08-18] MEDS: DOCUSATE SODIUM 100 MG CAPSULE (FP) PO SCH (11:06)
[2018-08-18] MEDS: TIMOLOL 0.5% OPHTHALMIC SOL 5 ML BOTTLE OU SCH ×2 (11:06→22:32)
[2018-08-18] MEDS: dilTIAZem HCL 30 MG TABLET (FP) PO SCH ×2 (11:06→22:32)
[2018-08-18] MEDS: FUROSEMIDE 40 MG TABLET (FP) PO SCH (11:06)
--- NOTE | 2018-08-18 11:08 | PN ---
Teaching Attending Note Name of Resident: Margareth Kelsie De Souza ATTENDING PHYSICIAN STATEMENT Time of evaluation: 8:40 AM I saw and evaluated the patient. I reviewed the resident's note and discussed the case with the resident. I agree with the resident's findings and plan as documented with exceptions below. SUBJECTIVE: Patient seen and examined, breathing improved, awake, OX2, no complaints currently. OBJECTIVE: Vital Signs Period Temp Pulse Resp BP Sys/Kraus Pulse Ox Last 24 Hr 97.5 F-98.2 F 82-108 18-20 106-124/56-62 95-98 Intake & Output 08/15/18 08/16/18 08/17/18 08/18/18 23:59 23:59 23:59 23:59 Intake Total 210 430 110 240 Output Total 710 800 200 600 Balance -500 -370 -90 -360 Weight 146 lb 14.4 oz 142 lb 9.6 oz 142 lb General: lying in bed, almost flat, no acute distress Chest: improved effort, decreased breath sounds at bases, few scattered rales Abdomen:Soft, obese, NT Extremities: improved pedal edema Active Medications Albuterol Sulfate (Ventolin 0.083% Nebulizer Soln -) 1 amp NEB Q4H PRN PRN Reason: SHORT OF BREATH/WHEEZING Last Admin: 08/16/18 09:27 Dose: 1 amp Apixaban (Eliquis -) 2.5 mg PO BID [facility] Last Admin: 08/17/18 21:40 Dose: 2.5 mg Atorvastatin Calcium (Lipitor -) 10 mg PO HS [facility] Last Admin: 08/17/18 21:47 Dose: 10 mg Diltiazem HCl (Cardizem -) 90 mg PO BID [facility] Last Admin: 08/17/18 21:40 Dose: 90 mg Docusate Sodium (Colace -) 100 mg PO DAILY [facility] Last Admin: 08/17/18 09:18 Dose: 100 mg Furosemide (Lasix -) 40 mg PO DAILY [facility] Guaifenesin/Codeine Phosphate (Robitussin Ac -) 5 ml PO TID PRN PRN Reason: COUGH Last Admin: 08/16/18 18:51 Dose: 5 ml Levalbuterol HCl (Xopenex) 0.63 mg IH RTID [facility] Last Admin: 08/18/18 07:42 Dose: 0.63 mg Levofloxacin (Levaquin -) 250 mg PO DAILY@0600 [facility] Last Admin: 08/18/18 06:08 Dose: 250 mg Melatonin (Melatonin) 5 mg PO HS PRN PRN Reason: INSOMNIA Last Admin: 08/17/18 21:40 Dose: 5 mg Metoprolol Succinate (Toprol Xl -) 25 mg PO DAILY [facility] Last Admin: 08/17/18 09:18 Dose: 25 mg Ropinirole HCl (Requip -) 1 mg PO DAILY [facility] Last Admin: 08/17/18 09:21 Dose: 1 mg Timolol Maleate (Timoptic 0.5%) 1 drop OU BID [facility] Last Admin: 08/17/18 21:47 Dose: 1 drop Laboratory Results - last 24 hr 08/17/18 08/18/18 08/18/18 05:30 05:30 05:30 WBC 8.5 RBC 3.53 L Hgb 9.6 L Hct 31.1 L MCV 88.0 MCH 27.1 MCHC 30.8 L RDW 19.6 H Plt Count 248 MPV 7.5 Absolute Neuts (auto) 5.3 Neutrophils % 61.9 Neutrophils % (Manual) 67.4 Band Neutrophils % 0.0 Lymphocytes % 15.4 Lymphocytes % (Manual) 14.3 D Monocytes % 20.2 H Monocytes % (Manual) 15 H Eosinophils % 1.7 Eosinophils % (Manual) 2.0 D Basophils % 0.8 Basophils % (Manual) 0.0 Myelocytes % (Man) 0 Promyelocytes % (Man) 0 Blast Cells % (Manual) 0 Nucleated RBC % 0 Metamyelocytes 0 Hypochromia 1+ Platelet Estimate Normal Polychromasia 1+ Poikilocytosis 0 Anisocytosis 1+ Microcytosis 1+ Macrocytosis 0 Sodium 143 Potassium 4.2 Chloride 99 Carbon Dioxide 39 H Anion Gap 5 L BUN 33 H Creatinine 1.4 H Creat Clearance w eGFR 35.41 Random Glucose 109 H Calcium 9.2 Phosphorus 2.6 Magnesium 2.4 ASSESSMENT AND PLAN: 88 yof with PMHx of anemia, HTN, HLD, pericardial effusion, diastolic congestive heart failure, atrial fibrillation (on Eliquis), and restless leg syndrome, admitted with acute hypoxic/hypercapneic respiratory failure. -Acute hypoxic/hypercapneic respiratory failure -Bibasilar/JASBIR CAP -Acute on chronic diastolic heart failure exacerbation -ABDOUL, suspect from aggressive diuresis -Contraction alkalosis. -Pulmonary HTN -Afib with tachy keren syndrome -Lower uncomplicated E. Coli/gp d streptococcus. -Urinary retention -AMs, suspect toxic metabolic encephalopathy from above -Restless leg syndrome Plan: Mental status/breathing improved. PO lasix. Levaquin day 9, discuss with ID about duraton. Daily weights and renal function monitoring. Pulmonary/cardiology input appreciated. Telemetry reviewed. Cardizem/metoprolol. Caridology input appreciated. Eliquis. 2d echo results reviewed. Standing and prn nebs. Blood cx/RSV/legionella/Flu swab neg. Kaufman placed overnight. Dysphagia pureed with nectar thick liquids with aspiration precautions. Keep K > 4 and Mg > 2 Repete PO k, mg prn. DVTPPX eliquis PT eval noted. Code status/DNR/DNI dispo plan for SNF in 24-48 hours if improved and disposition arranged.
[2018-08-18 12:35] LABS: ANISOCYTOSIS 1+; MACROCYTOSIS 0; PLATELET ESTIMATE NORMAL
--- NOTE | 2018-08-18 18:02 | EKG ---
Test Reason : Blood Pressure : / mmHG Vent. Rate : 098 BPM Atrial Rate : 093 BPM P-R Int : 000 ms QRS Dur : 116 ms QT Int : 338 ms P-R-T Axes : 000 -50 106 degrees QTc Int : 431 ms ATRIAL FIBRILLATION LEFT AXIS DEVIATION ANTERIOR INFARCT , AGE UNDETERMINED ABNORMAL ECG WHEN COMPARED WITH ECG OF 10-AUG-2018 17:19, NON-SPECIFIC CHANGE IN ST SEGMENT IN LATERAL LEADS Confirmed by CHRISTINA TURNER, HERBIE ([id number]) on 08/18/2018 6:02:03 PM Referred By: Negro RAMOS Confirmed By:HERBIE VASQUEZ MD
[2018-08-18] MEDS: rOPINIRole HCL 1 MG TABLET (FP) PO SCH (18:05)
[2018-08-18] MEDS: guaiFENesin/CODEINE 5 ML UNIT-DOSE CUPS PO PRN (22:31)
[2018-08-18] MEDS: ATORVASTATIN CA 10 MG TABLET (FP) PO SCH (22:32)
[2018-08-18] MEDS: MELATONIN 5 MG TABLETS PO PRN (22:32)
[2018-08-19 06:54] LABS: ALBUMIN 2.5 g/dl (3.4-5.0); ALK PHOS 62 U/L (45-117); ANION GAP 4 MMOL/L (8-16); BILIRUBIN,TOTAL 0.6 mg/dL (0.2-1); BLOOD UREA NITROGEN 31 mg/dL (7-18); CALCIUM 8.5 mg/dL (8.5-10.1); CHLORIDE 102 mmol/L (98-107); CO2 40 mmol/L (21-32); CREATININE 1.2 mg/dL (0.55-1.3); GLUCOSE,RANDOM 91 mg/dL (74-106); MAGNESIUM 2.3 mg/dL (1.8-2.4); POTASSIUM 4.1 mmol/L (3.5-5.1); SGOT/AST 28 U/L (15-37); SGPT/ALT 23 U/L (13-61); SODIUM 146 mmol/L (136-145); TOT PROT 4.9 g/dl (6.4-8.2)
[2018-08-19] MEDS: LEVALBUTEROL HCL 0.63 MG/3 ML VIAL.NEB. IH SCH ×3 (07:29→20:35)
[2018-08-19] MEDS ORDERED: PT OWN MED DRAWER 7, Y5N ONE ×2 (09:47→20:27)
[2018-08-19] MEDS: metoPROLOL SUCCINATE 25 MG TAB.SR.24H (FP) PO SCH (10:13)
[2018-08-19] MEDS: dilTIAZem HCL 30 MG TABLET (FP) PO SCH ×2 (10:13→21:33)
[2018-08-19] MEDS: DOCUSATE SODIUM 100 MG CAPSULE (FP) PO SCH (10:13)
[2018-08-19] MEDS: FUROSEMIDE 40 MG TABLET (FP) PO SCH (10:13)
[2018-08-19] MEDS: APIXABAN 2.5 MG TABLET PO SCH ×2 (10:14→21:33)
[2018-08-19] MEDS: rOPINIRole HCL 1 MG TABLET (FP) PO SCH (10:14)
[2018-08-19] MEDS: TIMOLOL 0.5% OPHTHALMIC SOL 5 ML BOTTLE OU SCH ×2 (10:14→21:29)
--- NOTE | 2018-08-19 10:19 | PN ---
Progress Note, Physician History of Present Illness: PULMONARY AWAKE,LESS DYSPNEIC,LESS COUGH - Current Medication List Current Medications: Active Medications Albuterol Sulfate (Ventolin 0.083% Nebulizer Soln -) 1 amp NEB Q4H PRN PRN Reason: SHORT OF BREATH/WHEEZING Last Admin: 08/16/18 09:27 Dose: 1 amp Apixaban (Eliquis -) 2.5 mg PO BID [facility] Last Admin: 08/18/18 22:32 Dose: 2.5 mg Atorvastatin Calcium (Lipitor -) 10 mg PO HS [facility] Last Admin: 08/18/18 22:32 Dose: 10 mg Diltiazem HCl (Cardizem -) 90 mg PO BID [facility] Last Admin: 08/18/18 22:32 Dose: 90 mg Docusate Sodium (Colace -) 100 mg PO DAILY [facility] Last Admin: 08/18/18 11:06 Dose: 100 mg Furosemide (Lasix -) 40 mg PO DAILY [facility] Last Admin: 08/18/18 11:06 Dose: 40 mg Guaifenesin/Codeine Phosphate (Robitussin Ac -) 5 ml PO TID PRN PRN Reason: COUGH Last Admin: 08/18/18 22:31 Dose: 5 ml Levalbuterol HCl (Xopenex) 0.63 mg IH RTID [facility] Last Admin: 08/19/18 07:29 Dose: 0.63 mg Levofloxacin (Levaquin -) 250 mg PO DAILY@0600 [facility] Last Admin: 08/19/18 06:23 Dose: 250 mg Melatonin (Melatonin) 5 mg PO HS PRN PRN Reason: INSOMNIA Last Admin: 08/18/18 22:32 Dose: 5 mg Metoprolol Succinate (Toprol Xl -) 25 mg PO DAILY [facility] Last Admin: 08/18/18 11:06 Dose: 25 mg Ropinirole HCl (Requip -) 1 mg PO DAILY [facility] Last Admin: 08/18/18 18:05 Dose: Not Given Timolol Maleate (Timoptic 0.5%) 1 drop OU BID [facility] Last Admin: 08/18/18 22:32 Dose: 1 drop - Objective Vital Signs: Vital Signs Temperature 98.4 F 08/19/18 09:18 Pulse Rate 103 H 08/19/18 09:18 Respiratory Rate 22 H 08/19/18 09:18 Blood Pressure 116/56 L 08/19/18 09:18 O2 Sat by Pulse Oximetry (%) 96 08/19/18 09:18 Constitutional: Yes: Calm, Thin Eyes: Yes: WNL HENT: Yes: WNL Neck: Yes: WNL Cardiovascular: Yes: Pulse Irregular, S1, S2 Respiratory: Yes: Rales (DIMINISHED BS LEFT BASE,SCATTERED TEJ CRACKLES RALES) Gastrointestinal: Yes: Normal Bowel Sounds, Soft Extremities: Yes: WNL Edema: No Labs: CBC, BMP 08/19/18 05:30 - ....Imaging Chest X-ray: Report Reviewed, Image Reviewed (NO CHANGE LEFT PLEURAL EFFUSION) Problem List - Problems (1) Acute on chronic diastolic (congestive) heart failure Code(s): I50.33 - ACUTE ON CHRONIC DIASTOLIC (CONGESTIVE) HEART FAILURE (2) Acute on chronic systolic (congestive) heart failure Code(s): I50.23 - ACUTE ON CHRONIC SYSTOLIC (CONGESTIVE) HEART FAILURE (3) Elevated brain natriuretic peptide (BNP) level Code(s): R79.89 - OTHER SPECIFIED ABNORMAL FINDINGS OF BLOOD CHEMISTRY (4) Shortness of breath Code(s): R06.02 - SHORTNESS OF BREATH (5) HTN (hypertension) Code(s): I10 - ESSENTIAL (PRIMARY) HYPERTENSION Qualifiers: Hypertension type: essential hypertension Qualified Code(s): I10 - Essential (primary) hypertension (6) Hypercholesterolemia Code(s): E78.00 - PURE HYPERCHOLESTEROLEMIA, UNSPECIFIED (7) Osteoarthritis Code(s): M19.90 - UNSPECIFIED OSTEOARTHRITIS, UNSPECIFIED SITE Qualifiers: Osteoarthritis location: knee Osteoarthritis type: unspecified Laterality : right Qualified Code(s): M17.11 - Unilateral primary osteoarthritis, right knee (8) Acute respiratory failure with hypoxia and hypercapnia Code(s): J96.01 - ACUTE RESPIRATORY FAILURE WITH HYPOXIA; J96.02 - ACUTE RESPIRATORY FAILURE WITH HYPERCAPNIA (9) Pleural effusion Code(s): J90 - PLEURAL EFFUSION, NOT ELSEWHERE CLASSIFIED Assessment/Plan IMP ACUTE HYPOXEMIC/HYPERCAPNEIC RESPIRATORY FAILURE IMPROVING ACUTE ON CHRONIC CHF PULMONARY HTN PNEUMONIA AFIB H/O HTN HLD RESTLESS LEG SYNDROME PLAN INHALED BRONCHODILATORS LASIX PER CARDIOLOGY INHALED BRONCHODILATORS ABX PER ID O2 TO MAINTAIN O2 SAT >92% NIPPV NEEDED CHEST PT CHEST X-RAY CHEST ULTRASOUND IF LARGE EFFUSION NOTED CONSIDER THORACENTESIS DR GODDARD Problem List - Problems (1) Acute on chronic diastolic (congestive) heart failure Code(s): I50.33 - ACUTE ON CHRONIC DIASTOLIC (CONGESTIVE) HEART FAILURE (2) Acute on chronic systolic (congestive) heart failure Code(s): I50.23 - ACUTE ON CHRONIC SYSTOLIC (CONGESTIVE) HEART FAILURE (3) Elevated brain natriuretic peptide (BNP) level Code(s): R79.89 - OTHER SPECIFIED ABNORMAL FINDINGS OF BLOOD CHEMISTRY (4) Shortness of breath Code(s): R06.02 - SHORTNESS OF BREATH (5) HTN (hypertension) Code(s): I10 - ESSENTIAL (PRIMARY) HYPERTENSION Qualifiers: Hypertension type: essential hypertension Qualified Code(s): I10 - Essential (primary) hypertension (6) Hypercholesterolemia Code(s): E78.00 - PURE HYPERCHOLESTEROLEMIA, UNSPECIFIED (7) Osteoarthritis Code(s): M19.90 - UNSPECIFIED OSTEOARTHRITIS, UNSPECIFIED SITE Qualifiers: Osteoarthritis location: knee Osteoarthritis type: unspecified Laterality : right Qualified Code(s): M17.11 - Unilateral primary osteoarthritis, right knee (8) Acute respiratory failure with hypoxia and hypercapnia Code(s): J96.01 - ACUTE RESPIRATORY FAILURE WITH HYPOXIA; J96.02 - ACUTE RESPIRATORY FAILURE WITH HYPERCAPNIA (9) Pleural effusion Code(s): J90 - PLEURAL EFFUSION, NOT ELSEWHERE CLASSIFIED
[2018-08-19] MEDS: guaiFENesin/CODEINE 5 ML UNIT-DOSE CUPS PO PRN (14:07)
[2018-08-19] MEDS ORDERED: ACETAMINOPHEN 325 MG TABLET (FP) PO PRN (14:31)
[2018-08-19] MEDS ORDERED: FUROSEMIDE 40 MG TABLET (FP) PO SCH (16:02)
--- NOTE | 2018-08-19 16:06 | PN ---
Physical Exam: SUBJECTIVE: Patient seen and examined, sleeping but arousable, denies any pain or dyspnea, limited participation in conversation. OBJECTIVE: Vital Signs Period Temp Pulse Resp BP Sys/Kraus Pulse Ox Last 24 Hr 97.7 F-98.4 F 84-103 20-22 103-121/52-60 96-97 GENERAL: sleeping but arousable, minimal participation but no acute distress Neck: soft, supple, no JVD Chest: poor effort, decreased breath sounds at bases, no wheezing Abdomen:soft, NT, ND, positive bowel sounds Extremities: trace pedal edema Laboratory Results - last 24 hr 08/19/18 05:30 Sodium 146 H Potassium 4.1 Chloride 102 Carbon Dioxide 40 H Anion Gap 4 L BUN 31 H Creatinine 1.2 Creat Clearance w eGFR 42.30 Random Glucose 91 Calcium 8.5 Phosphorus 3.0 Magnesium 2.3 Total Bilirubin 0.6 AST 28 ALT 23 Alkaline Phosphatase 62 Total Protein 4.9 L Albumin 2.5 L Active Medications Generic Name Dose Route Start Last Admin Trade Name Freq PRN Reason Stop Dose Admin Acetaminophen 650 mg 08/19/18 14:31 08/19/18 15:08 Tylenol - PO 650 mg Q6H PRN Administration HEADACHE Albuterol Sulfate 1 amp 08/15/18 11:25 08/16/18 09:27 Ventolin 0.083% Nebulizer Soln - NEB 1 amp Q4H PRN Administration SHORT OF BREATH/WHEEZING Apixaban 2.5 mg 08/11/18 01:15 08/19/18 10:14 Eliquis - PO 2.5 mg BID [facility] Administration Atorvastatin Calcium 10 mg 08/11/18 22:00 08/18/18 22:32 Lipitor - PO 10 mg HS [facility] Administration Diltiazem HCl 90 mg 08/13/18 22:00 08/19/18 10:13 Cardizem - PO 90 mg BID [facility] Administration Docusate Sodium 100 mg 08/11/18 10:00 08/19/18 10:13 Colace - PO 100 mg DAILY [facility] Administration Furosemide 20 mg 08/19/18 16:02 Lasix - PO DAILY [facility] Guaifenesin/Codeine Phosphate 5 ml 08/12/18 10:15 08/19/18 14:07 Robitussin Ac - PO 5 ml TID PRN Administration COUGH Levalbuterol HCl 0.63 mg 08/14/18 14:00 08/19/18 14:03 Xopenex IH 0.63 mg RTID [facility] Administration Levofloxacin 250 mg 08/18/18 06:00 08/19/18 06:23 Levaquin - PO 250 mg DAILY@0600 [facility] Administration Melatonin 5 mg 08/16/18 10:18 08/18/18 22:32 Melatonin PO 5 mg HS PRN Administration INSOMNIA Metoprolol Succinate 25 mg 08/14/18 10:00 08/19/18 10:13 Toprol Xl - PO 25 mg DAILY [facility] Administration Ropinirole HCl 1 mg 08/11/18 10:00 08/19/18 10:14 Requip - PO 1 mg DAILY [facility] Administration Timolol Maleate 1 drop 08/11/18 10:00 08/19/18 10:14 Timoptic 0.5% OU 1 drop BID [facility] Administration ASSESSMENT/PLAN: 88 yof with PMHx of anemia, HTN, HLD, pericardial effusion, diastolic congestive heart failure, atrial fibrillation (on Eliquis), and restless leg syndrome, admitted with acute hypoxic/hypercapneic respiratory failure. -Acute hypoxic/hypercapneic respiratory failure -Bibasilar/JASBIR CAP -Acute on chronic diastolic heart failure exacerbation -ABDOUL, suspect from aggressive diuresis -Contraction alkalosis. -Hypernatremia, likely from lack of free water intake/lasix -Pulmonary HTN -Afib with tachy keren syndrome -Lower uncomplicated E. Coli/gp d streptococcus. -Urinary retention -AMs, suspect toxic metabolic encephalopathy from above -Restless leg syndrome Plan: Mental status/breathing improved. Na rising, liberalize free water intake. Discuss with speech/swallow if can be upgraded to thin liquids. Decrease lasix to 20 mg daily. Levaquin day 10, d/c and monitor clinically. Daily weights and renal function monitoring. Pulmonary/cardiology input appreciated. Telemetry reviewed. Cardizem/metoprolol. Caridiology input appreciated. Eliquis. 2d echo results reviewed. Standing and prn nebs. Blood cx/RSV/legionella/Flu swab neg. Kaufman placed overnight. Dysphagia pureed with nectar thick liquids with aspiration precautions. Keep K > 4 and Mg > 2 Repete PO k, mg prn. DVTPPX eliquis PT eval noted. Code status/DNR/DNI dispo plan for SNF in 1-2 if improved and disposition arranged. Plan discussed with son at bedside and all questions answered. Visit type - Emergency Visit Emergency Visit: Yes ED Registration Date: 08/10/18 Care time: The patient presented to the Emergency Department on the above date and was hospitalized for further evaluation of their emergent condition. - New Patient This patient is new to me today: No - Critical Care Critical Care patient: No - Discharge Referral Referred to [facility] Med [facility] No
[2018-08-19] MEDS ORDERED: FUROSEMIDE 20 MG TABLET (FP) PO SCH (16:14)
[2018-08-19] MEDS: MELATONIN 5 MG TABLETS PO PRN (21:33)
[2018-08-19] MEDS: ATORVASTATIN CA 10 MG TABLET (FP) PO SCH (21:33)
--- NOTE | 2018-08-20 07:29 | PN ---
Teaching Attending Note Name of Resident: Brenda Jameson ATTENDING PHYSICIAN STATEMENT I saw and evaluated the patient. I reviewed the resident's note and discussed the case with the resident. I agree with the resident's findings and plan as documented with exceptions below. SUBJECTIVE: Patient seen and examined. Working with PT, more interactive today. Some dyspnea , but no laine. OBJECTIVE: Vital Signs Period Temp Pulse Resp BP Sys/Kraus Pulse Ox Last 24 Hr 97.6 F-98.4 F 88-108 20-22 106-127/43-58 95-97 Intake & Output 08/17/18 08/18/18 08/19/18 08/20/18 23:59 23:59 23:59 23:59 Intake Total 110 240 160 Output Total 200 850 600 300 Balance -90 -610 -440 -300 Weight 142 lb General: sitting in bed in no acute distress CHest; decreased effort, no wheezing, decreased breath sounds at bases Abdomen:soft, NT, ND Extremities: improved pedal edema Active Medications Acetaminophen (Tylenol -) 650 mg PO Q6H PRN PRN Reason: HEADACHE Last Admin: 08/19/18 15:08 Dose: 650 mg Albuterol Sulfate (Ventolin 0.083% Nebulizer Soln -) 1 amp NEB Q4H PRN PRN Reason: SHORT OF BREATH/WHEEZING Last Admin: 08/16/18 09:27 Dose: 1 amp Apixaban (Eliquis -) 2.5 mg PO BID [facility] Last Admin: 08/19/18 21:33 Dose: 2.5 mg Atorvastatin Calcium (Lipitor -) 10 mg PO HS [facility] Last Admin: 08/19/18 21:33 Dose: 10 mg Diltiazem HCl (Cardizem -) 90 mg PO BID [facility] Last Admin: 08/19/18 21:33 Dose: 90 mg Docusate Sodium (Colace -) 100 mg PO DAILY [facility] Last Admin: 08/19/18 10:13 Dose: 100 mg Furosemide (Lasix -) 20 mg PO DAILY [facility] Levalbuterol HCl (Xopenex) 0.63 mg IH RTID [facility] Last Admin: 08/19/18 20:35 Dose: 0.63 mg Melatonin (Melatonin) 5 mg PO HS PRN PRN Reason: INSOMNIA Last Admin: 08/19/18 21:33 Dose: 5 mg Metoprolol Succinate (Toprol Xl -) 25 mg PO DAILY [facility] Last Admin: 08/19/18 10:13 Dose: 25 mg Ropinirole HCl (Requip -) 1 mg PO DAILY [facility] Last Admin: 08/19/18 10:14 Dose: 1 mg Timolol Maleate (Timoptic 0.5%) 1 drop OU BID [facility] Last Admin: 08/19/18 21:29 Dose: 1 drop Laboratory Results - last 24 hr 08/20/18 05:30 Sodium 146 H Potassium 3.9 Chloride 100 Carbon Dioxide 41 H Anion Gap 5 L BUN 30 H Creatinine 1.2 Creat Clearance w eGFR 42.30 Random Glucose 83 Calcium 8.4 L Phosphorus 2.9 Magnesium 2.1 ASSESSMENT AND PLAN: 88 yof with PMHx of anemia, HTN, HLD, pericardial effusion, diastolic congestive heart failure, atrial fibrillation (on Eliquis), and restless leg syndrome, admitted with acute hypoxic/hypercapneic respiratory failure. -Acute hypoxic/hypercapneic respiratory failure -Bibasilar/JASBIR CAP -Acute on chronic diastolic heart failure exacerbation -ABDOUL, suspect from aggressive diuresis -Contraction alkalosis. -Hypernatremia, likely from lack of free water intake/lasix -Pulmonary HTN -Afib with tachy keren syndrome -Lower uncomplicated E. Coli/gp d streptococcus. -Urinary retention -AMs, suspect toxic metabolic encephalopathy from above -Restless leg syndrome Plan: Mental status/breathing improved. Na stable, free water with thickener. Speech/swallow input appreciated, follow up MBS. Discussed with Dr Willoughby, chest US, assess for parapneumonic effusions, thoracocentesis accordingly. Repeat CXR with some improvement in effusions. Increase lasix to 40 mg daily for now. Encourate PT and mobilization. s/p 10 days of levaquin, off abx, monitor clinically. Daily weights and renal function monitoring. Telemetry reviewed. Cardizem/metoprolol. Cardiology input appreciated. Eliquis. 2d echo results reviewed. Standing and prn nebs. Blood cx/RSV/legionella/Flu swab neg. Kaufman placed overnight. Dysphagia pureed with nectar thick liquids with aspiration precautions. Keep K > 4 and Mg > 2 Repete PO k, mg prn. DVTPPX eliquis PT eval noted. Code status/DNR/DNI dispo plan d/c to [facility] today, pending MBS/chest ultrasound and pulmonary input.
[2018-08-20 07:38] LABS: ANION GAP 5 MMOL/L (8-16); BLOOD UREA NITROGEN 30 mg/dL (7-18); CALCIUM 8.4 mg/dL (8.5-10.1); CHLORIDE 100 mmol/L (98-107); CO2 41 mmol/L (21-32); CREATININE 1.2 mg/dL (0.55-1.3); GLUCOSE,RANDOM 83 mg/dL (74-106); MAGNESIUM 2.1 mg/dL (1.8-2.4); PHOSPHOROUS 2.9 mg/dL (2.5-4.9); POTASSIUM 3.9 mmol/L (3.5-5.1); SODIUM 146 mmol/L (136-145)
[2018-08-20] MEDS: LEVALBUTEROL HCL 0.63 MG/3 ML VIAL.NEB. IH SCH ×5 (08:30→22:30)
--- NOTE | 2018-08-20 08:47 | PN ---
Progress Note, Physician History of Present Illness: 87 yo F with a h/o Anemia, HTN, HLD, OA, Diastolic Congestive heart failure, CKD stage III, Atrial fibrillation (Eliquis), restless leg syndrome who p/w SOB. Per patient son at bedside and primary caregiver, pt. has been experiencing cough, with green sputum production x 1 week, with progressive wheezing, and SOB. Son also reports 2 weeks of worsening mental status and night time confusion. + chronic leg swelling, and orthopnea. No home O2 requirements. Patient denies N/V, F/C, Palpitations, CP, SOB, urinary complaints, abdominal pain, diarrhea, constipation, lightheadedness, weakness, sensory changes. PMHx: as noted above ROS: as noted SHx: Denies tobacco use, IVDA, Etoh Allergies: NKDA - Current Medication List Current Medications: Active Medications Acetaminophen (Tylenol -) 650 mg PO Q6H PRN PRN Reason: HEADACHE Last Admin: 08/19/18 15:08 Dose: 650 mg Albuterol Sulfate (Ventolin 0.083% Nebulizer Soln -) 1 amp NEB Q4H PRN PRN Reason: SHORT OF BREATH/WHEEZING Last Admin: 08/16/18 09:27 Dose: 1 amp Apixaban (Eliquis -) 2.5 mg PO BID [facility] Last Admin: 08/19/18 21:33 Dose: 2.5 mg Atorvastatin Calcium (Lipitor -) 10 mg PO HS [facility] Last Admin: 08/19/18 21:33 Dose: 10 mg Diltiazem HCl (Cardizem -) 90 mg PO BID [facility] Last Admin: 08/19/18 21:33 Dose: 90 mg Docusate Sodium (Colace -) 100 mg PO DAILY [facility] Last Admin: 08/19/18 10:13 Dose: 100 mg Furosemide (Lasix -) 20 mg PO DAILY [facility] Levalbuterol HCl (Xopenex) 0.63 mg IH RTID [facility] Last Admin: 08/19/18 20:35 Dose: 0.63 mg Melatonin (Melatonin) 5 mg PO HS PRN PRN Reason: INSOMNIA Last Admin: 08/19/18 21:33 Dose: 5 mg Metoprolol Succinate (Toprol Xl -) 25 mg PO DAILY [facility] Last Admin: 08/19/18 10:13 Dose: 25 mg Ropinirole HCl (Requip -) 1 mg PO DAILY [facility] Last Admin: 08/19/18 10:14 Dose: 1 mg Timolol Maleate (Timoptic 0.5%) 1 drop OU BID [facility] Last Admin: 08/19/18 21:29 Dose: 1 drop - Objective Vital Signs: Vital Signs Temperature 98.2 F 08/20/18 05:29 Pulse Rate 100 H 08/20/18 05:29 Respiratory Rate 20 08/20/18 05:29 Blood Pressure 118/50 L 08/20/18 05:29 O2 Sat by Pulse Oximetry (%) 94 L 08/20/18 08:04 Eyes: Yes: WNL, Conjunctiva Clear, EOM Intact HENT: Yes: WNL, Atraumatic, Normocephalic Neck: Yes: WNL, Supple, Trachea Midline Cardiovascular: Yes: WNL, Regular Rate and Rhythm Respiratory: Yes: WNL, Regular, CTA Bilaterally Gastrointestinal: Yes: WNL, Normal Bowel Sounds Genitourinary: Yes: WNL Musculoskeletal: Yes: WNL Extremities: Yes: WNL Edema: No Integumentary: Yes: WNL Neurological: Yes: WNL, Alert, Oriented ...Motor Strength: WNL Psychiatric: Yes: WNL Labs: CBC, BMP 08/18/18 05:30 08/20/18 05:30 INR, PTT INR 1.41 (0.83-1.09) H 08/10/18 21:40 Problem List - Problems (1) Acute on chronic diastolic (congestive) heart failure Code(s): I50.33 - ACUTE ON CHRONIC DIASTOLIC (CONGESTIVE) HEART FAILURE (2) Elevated brain natriuretic peptide (BNP) level Code(s): R79.89 - OTHER SPECIFIED ABNORMAL FINDINGS OF BLOOD CHEMISTRY (3) Hypoxia Code(s): R09.02 - HYPOXEMIA (4) Shortness of breath Code(s): R06.02 - SHORTNESS OF BREATH (5) [id number] kidney injury Code(s): N17.9 - ACUTE KIDNEY FAILURE, UNSPECIFIED; N18.9 - CHRONIC KIDNEY DISEASE, UNSPECIFIED Qualifiers: Acute renal failure type: unspecified (6) Allergic reaction Code(s): T78.40XA - ALLERGY, UNSPECIFIED, INITIAL ENCOUNTER Qualifiers: Encounter type: initial encounter Qualified Code(s): T78.40XA - Allergy, unspecified, initial encounter (7) Atrial fibrillation with RVR Code(s): I48.91 - UNSPECIFIED ATRIAL FIBRILLATION (8) Atrial flutter with rapid ventricular response Code(s): I48.92 - UNSPECIFIED ATRIAL FLUTTER (9) Back pain Code(s): M54.9 - DORSALGIA, UNSPECIFIED (10) Dehydration Code(s): E86.0 - DEHYDRATION (11) Diastolic dysfunction Code(s): I51.9 - HEART DISEASE, UNSPECIFIED (12) History of dyspnea Code(s): Z87.09 - PERSONAL HISTORY OF OTHER DISEASES OF THE RESPIRATORY SYSTEM (13) Leukocytosis Code(s): D72.829 - ELEVATED WHITE BLOOD CELL COUNT, UNSPECIFIED Qualifiers: Leukocytosis type: unspecified Qualified Code(s): D72.829 - Elevated white blood cell count, unspecified (14) Paroxysmal atrial fibrillation Code(s): I48.0 - PAROXYSMAL ATRIAL FIBRILLATION (15) Pericardial effusion Code(s): I31.3 - PERICARDIAL EFFUSION (NONINFLAMMATORY) (16) Pneumonia Code(s): J18.9 - PNEUMONIA, UNSPECIFIED ORGANISM Qualifiers: Pneumonia type: due to unspecified organism Laterality: left (17) Sepsis Code(s): A41.9 - SEPSIS, UNSPECIFIED ORGANISM (18) Sinus bradycardia Code(s): R00.1 - BRADYCARDIA, UNSPECIFIED (19) Chronic kidney disease Code(s): N18.9 - CHRONIC KIDNEY DISEASE, UNSPECIFIED Qualifiers: Chronic kidney disease stage: stage 2 (mild) Qualified Code(s): N18.2 - Chronic kidney disease, stage 2 (mild) (20) HTN (hypertension) Code(s): I10 - ESSENTIAL (PRIMARY) HYPERTENSION Qualifiers: Hypertension type: essential hypertension Qualified Code(s): I10 - Essential (primary) hypertension (21) Hypercholesterolemia Code(s): E78.00 - PURE HYPERCHOLESTEROLEMIA, UNSPECIFIED (22) Osteoarthritis Code(s): M19.90 - UNSPECIFIED OSTEOARTHRITIS, UNSPECIFIED SITE Qualifiers: Osteoarthritis location: knee Osteoarthritis type: unspecified Laterality : right Qualified Code(s): M17.11 - Unilateral primary osteoarthritis, right knee Assessment/Plan - Problems (1) Acute on chronic systolic (congestive) heart failure Assessment/Plan: On metoprolol and furosemide. Start ACEI or ARB if renal function improves. F/u BUn/Cr, electrolytes, daily weight, electrolytes. Code(s): I50.23 - ACUTE ON CHRONIC SYSTOLIC (CONGESTIVE) HEART FAILURE (2) Malignancy Assessment/Plan: r/o lung malignancy: ateletasis, pleural effusion, mediastinal stricutres left- sided. CT chest recommended to be repeated in 1-2 weeks. f/u with bed laborer. Code(s): C80.1 - MALIGNANT (PRIMARY) NEOPLASM, UNSPECIFIED (3) Elevated brain natriuretic peptide (BNP) level Code(s): R79.89 - OTHER SPECIFIED ABNORMAL FINDINGS OF BLOOD CHEMISTRY (4) Paroxysmal atrial fibrillation Assessment/Plan: On metoprolol and diltiazem for HR control. On apixaban for anticoagulation. Code(s): I48.0 - PAROXYSMAL ATRIAL FIBRILLATION (5) Pericardial effusion Code(s): I31.3 - PERICARDIAL EFFUSION (NONINFLAMMATORY) (6) Pneumonia Assessment/Plan: On Levaquin. F/u blood c/s. Code(s): J18.9 - PNEUMONIA, UNSPECIFIED ORGANISM Qualifiers: Pneumonia type: due to unspecified organism Laterality: left (7) Chronic kidney disease Code(s): N18.9 - CHRONIC KIDNEY DISEASE, UNSPECIFIED Qualifiers: Chronic kidney disease stage: stage 2 (mild) Qualified Code(s): N18.2 - Chronic kidney disease, stage 2 (mild) (8) HTN (hypertension) Code(s): I10 - ESSENTIAL (PRIMARY) HYPERTENSION Qualifiers: Hypertension type: essential hypertension Qualified Code(s): I10 - Essential (primary) hypertension (9) Hypercholesterolemia Assessment/Plan: Total cholesterol 96 mg/dL (03/16). On atorvastatin 10 mg daily. Code(s): E78.00 - PURE HYPERCHOLESTEROLEMIA, UNSPECIFIED (10) Osteoarthritis Assessment/Plan: chronic knee pains and decreased ROM. Code(s): M19.90 - UNSPECIFIED OSTEOARTHRITIS, UNSPECIFIED SITE Qualifiers: Osteoarthritis location: knee Osteoarthritis type: unspecified Laterality : right Qualified Code(s): M17.11 - Unilateral primary osteoarthritis, right knee (11) Renal dysfunction Code(s): N28.9 - DISORDER OF KIDNEY AND URETER, UNSPECIFIED
[2018-08-20] MEDS ORDERED: PT OWN MED DRAWER 7, Y5N ONE ×2 (08:58→22:10)
[2018-08-20] MEDS: APIXABAN 2.5 MG TABLET PO SCH (09:11)
[2018-08-20] MEDS: dilTIAZem HCL 30 MG TABLET (FP) PO SCH ×2 (09:11→22:13)
[2018-08-20] MEDS: metoPROLOL SUCCINATE 25 MG TAB.SR.24H (FP) PO SCH (09:11)
[2018-08-20] MEDS: TIMOLOL 0.5% OPHTHALMIC SOL 5 ML BOTTLE OU SCH ×2 (10:00→22:14)
[2018-08-20] MEDS: DOCUSATE SODIUM 100 MG CAPSULE (FP) PO SCH (10:00)
--- NOTE | 2018-08-20 10:25 | PN ---
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 Tells me she chokes on liquids for "a long time." Asked to reassess for tolerance of thin water. No cough but pt demonstrates sudden eye opening, stating "Wow, I almost choked on that!" MBS:r/o silent aspiration/tolerance of upgraded liquid/solids
--- NOTE | 2018-08-20 10:58 | PN ---
Progress Note, Physician History of Present Illness: PULMONARY ALERT,COMFORTABLE,-RESP DISTRESS - Current Medication List Current Medications: Active Medications Acetaminophen (Tylenol -) 650 mg PO Q6H PRN PRN Reason: HEADACHE Last Admin: 08/19/18 15:08 Dose: 650 mg Albuterol Sulfate (Ventolin 0.083% Nebulizer Soln -) 1 amp NEB Q4H PRN PRN Reason: SHORT OF BREATH/WHEEZING Last Admin: 08/16/18 09:27 Dose: 1 amp Apixaban (Eliquis -) 2.5 mg PO BID [facility] Last Admin: 08/20/18 09:11 Dose: 2.5 mg Atorvastatin Calcium (Lipitor -) 10 mg PO HS [facility] Last Admin: 08/19/18 21:33 Dose: 10 mg Diltiazem HCl (Cardizem -) 90 mg PO BID [facility] Last Admin: 08/20/18 09:11 Dose: 90 mg Docusate Sodium (Colace -) 100 mg PO DAILY [facility] Last Admin: 08/19/18 10:13 Dose: 100 mg Furosemide (Lasix -) 20 mg PO DAILY [facility] Last Admin: 08/20/18 09:11 Dose: 20 mg Levalbuterol HCl (Xopenex) 0.63 mg IH RTID [facility] Last Admin: 08/20/18 08:30 Dose: 0.63 mg Melatonin (Melatonin) 5 mg PO HS PRN PRN Reason: INSOMNIA Last Admin: 08/19/18 21:33 Dose: 5 mg Metoprolol Succinate (Toprol Xl -) 25 mg PO DAILY [facility] Last Admin: 08/20/18 09:11 Dose: 25 mg Ropinirole HCl (Requip -) 1 mg PO DAILY [facility] Last Admin: 08/19/18 10:14 Dose: 1 mg Timolol Maleate (Timoptic 0.5%) 1 drop OU BID [facility] Last Admin: 08/19/18 21:29 Dose: 1 drop - Objective Vital Signs: Vital Signs Temperature 98.2 F 08/20/18 05:29 Pulse Rate 110 H 08/20/18 09:53 Respiratory Rate 18 08/20/18 09:53 Blood Pressure 118/70 08/20/18 09:53 O2 Sat by Pulse Oximetry (%) 94 L 08/20/18 09:00 Constitutional: Yes: Calm, Thin Eyes: Yes: WNL HENT: Yes: WNL Neck: Yes: WNL Cardiovascular: Yes: Pulse Irregular, S1, S2 Respiratory: Yes: Rales (BIBASILAR RALES) Gastrointestinal: Yes: Normal Bowel Sounds, Soft Extremities: Yes: WNL Edema: No Labs: CBC, BMP 08/18/18 05:30 08/20/18 05:30 INR, PTT INR 1.41 (0.83-1.09) H 08/10/18 21:40 Problem List - Problems (1) Acute on chronic diastolic (congestive) heart failure Code(s): I50.33 - ACUTE ON CHRONIC DIASTOLIC (CONGESTIVE) HEART FAILURE (2) Acute on chronic systolic (congestive) heart failure Code(s): I50.23 - ACUTE ON CHRONIC SYSTOLIC (CONGESTIVE) HEART FAILURE (3) Elevated brain natriuretic peptide (BNP) level Code(s): R79.89 - OTHER SPECIFIED ABNORMAL FINDINGS OF BLOOD CHEMISTRY (4) Shortness of breath Code(s): R06.02 - SHORTNESS OF BREATH (5) HTN (hypertension) Code(s): I10 - ESSENTIAL (PRIMARY) HYPERTENSION Qualifiers: Hypertension type: essential hypertension Qualified Code(s): I10 - Essential (primary) hypertension (6) Hypercholesterolemia Code(s): E78.00 - PURE HYPERCHOLESTEROLEMIA, UNSPECIFIED (7) Osteoarthritis Code(s): M19.90 - UNSPECIFIED OSTEOARTHRITIS, UNSPECIFIED SITE Qualifiers: Osteoarthritis location: knee Osteoarthritis type: unspecified Laterality : right Qualified Code(s): M17.11 - Unilateral primary osteoarthritis, right knee (8) Acute respiratory failure with hypoxia and hypercapnia Code(s): J96.01 - ACUTE RESPIRATORY FAILURE WITH HYPOXIA; J96.02 - ACUTE RESPIRATORY FAILURE WITH HYPERCAPNIA (9) Pleural effusion Code(s): J90 - PLEURAL EFFUSION, NOT ELSEWHERE CLASSIFIED Assessment/Plan IMP ACUTE HYPOXEMIC/HYPERCAPNEIC RESPIRATORY FAILURE IMPROVING ACUTE ON CHRONIC CHF PULMONARY HTN PNEUMONIA AFIB H/O HTN HLD RESTLESS LEG SYNDROME PLAN INHALED BRONCHODILATORS LASIX INHALED BRONCHODILATORS ABX PER ID O2 TO MAINTAIN O2 SAT >92% NIPPV NEEDED CHEST PT CHEST ULTRASOUND IF LARGE EFFUSION NOTED CONSIDER THORACENTESIS DR GODDARD Problem List - Problems (1) Acute on chronic diastolic (congestive) heart failure Code(s): I50.33 - ACUTE ON CHRONIC DIASTOLIC (CONGESTIVE) HEART FAILURE (2) Acute on chronic systolic (congestive) heart failure Code(s): I50.23 - ACUTE ON CHRONIC SYSTOLIC (CONGESTIVE) HEART FAILURE (3) Elevated brain natriuretic peptide (BNP) level Code(s): R79.89 - OTHER SPECIFIED ABNORMAL FINDINGS OF BLOOD CHEMISTRY (4) Shortness of breath Code(s): R06.02 - SHORTNESS OF BREATH (5) HTN (hypertension) Code(s): I10 - ESSENTIAL (PRIMARY) HYPERTENSION Qualifiers: Hypertension type: essential hypertension Qualified Code(s): I10 - Essential (primary) hypertension (6) Hypercholesterolemia Code(s): E78.00 - PURE HYPERCHOLESTEROLEMIA, UNSPECIFIED (7) Osteoarthritis Code(s): M19.90 - UNSPECIFIED OSTEOARTHRITIS, UNSPECIFIED SITE Qualifiers: Osteoarthritis location: knee Osteoarthritis type: unspecified Laterality : right Qualified Code(s): M17.11 - Unilateral primary osteoarthritis, right knee (8) Acute respiratory failure with hypoxia and hypercapnia Code(s): J96.01 - ACUTE RESPIRATORY FAILURE WITH HYPOXIA; J96.02 - ACUTE RESPIRATORY FAILURE WITH HYPERCAPNIA (9) Pleural effusion Code(s): J90 - PLEURAL EFFUSION, NOT ELSEWHERE CLASSIFIED
[2018-08-20] MEDS: rOPINIRole HCL 1 MG TABLET (FP) PO SCH (16:30)
--- NOTE | 2018-08-20 19:43 | PN ---
Physical Exam: SUBJECTIVE: Patient seen and examined this morning at bedside. Feeling thirsty this AM. No new complaints, No acute overnight events as per nursing. OBJECTIVE: Vital Signs Period Temp Pulse Resp BP Sys/Kraus Pulse Ox Last 24 Hr 97.6 F-98.2 F 88-110 18-20 106-127/38-70 94-97 Intake & Output 08/20/18 08/20/18 08/20/18 07:59 15:59 23:59 Output Total 300 Balance -300 GENERAL: A&Ox3, NAD HEAD: NCAT EYES: PERRL, EOMI ENT: Hard of hearing, oropharynx clear without exudates, moist mucous membranes NECK: supple, +JVD, Improving LUNGS: Decreased breath sounds at the bases, on 4L NC HEART: Regular rate and rhythm, normal S1 and S2 ABDOMEN: Soft, nontender, not distended, + bowel sounds, no guarding EXTREMITIES: 2+ pulses, 1+ pitting edema b/l improving NEUROLOGICAL: Cranial nerves II-XII intact. Normal speech SKIN: Warm, dry, no rashes or lesions noted Laboratory Results - last 24 hr 08/20/18 05:30 Sodium 146 H Potassium 3.9 Chloride 100 Carbon Dioxide 41 H Anion Gap 5 L BUN 30 H Creatinine 1.2 Creat Clearance w eGFR 42.30 Random Glucose 83 Calcium 8.4 L Phosphorus 2.9 Magnesium 2.1 Microbiology 08/10/18 20:00 Blood - Peripheral Venous Blood Culture - Final NO GROWTH AFTER 5 DAYS INCUBATION 08/10/18 20:50 Blood - Peripheral Venous Blood Culture - Final NO GROWTH AFTER 5 DAYS INCUBATION 08/10/18 21:50 Urine - Urine Clean Catch Urine Culture - Final Escherichia Coli Group D Strep Or Entero Coccus 08/11/18 10:41 Urine For Antigen Detection Legionella Antigen - Final 08/11/18 10:41 Urine For Antigen Detection Streptococcus pneumoniae Antigen (M - Final 08/11/18 03:51 Nasopharyngeal Swab Respiratory Syncytial Virus Ag - Final 08/11/18 03:51 Nasopharyngeal Swab Influenza Types A,B Antigen - Final 08/11/18 03:51 Nasopharyngeal Swab - Final Active Medications Acetaminophen (Tylenol -) 650 mg PO Q6H PRN PRN Reason: HEADACHE Last Admin: 08/19/18 15:08 Dose: 650 mg Albuterol Sulfate (Ventolin 0.083% Nebulizer Soln -) 1 amp NEB Q4H PRN PRN Reason: SHORT OF BREATH/WHEEZING Last Admin: 08/16/18 09:27 Dose: 1 amp Atorvastatin Calcium (Lipitor -) 10 mg PO HS [facility] Last Admin: 08/19/18 21:33 Dose: 10 mg Diltiazem HCl (Cardizem -) 90 mg PO BID [facility] Last Admin: 08/20/18 09:11 Dose: 90 mg Docusate Sodium (Colace -) 100 mg PO DAILY [facility] Last Admin: 08/20/18 10:00 Dose: 100 mg Furosemide (Lasix -) 40 mg PO DAILY [facility] Levalbuterol HCl (Xopenex) 0.63 mg IH RTID [facility] Last Admin: 08/20/18 14:48 Dose: 0.63 mg Melatonin (Melatonin) 5 mg PO HS PRN PRN Reason: INSOMNIA Last Admin: 08/19/18 21:33 Dose: 5 mg Metoprolol Succinate (Toprol Xl -) 25 mg PO DAILY [facility] Last Admin: 08/20/18 09:11 Dose: 25 mg Ropinirole HCl (Requip -) 1 mg PO DAILY [facility] Last Admin: 08/20/18 16:30 Dose: Not Given Timolol Maleate (Timoptic 0.5%) 1 drop OU BID [facility] Last Admin: 08/20/18 10:00 Dose: 1 drop IMAGING: -US Duplex 2 Legs: No DVT is identified involving either leg. Please see above. -EKG (08/10): ATRIAL FIBRILLATION WITH RAPID VENTRICULAR RESPONSE WITH PREMATURE VENTRICULAR OR ABERRANTLY CONDUCTED COMPLEXES, LEFT AXIS DEVIATION, QTc 482 -EKG (08/18): ATRIAL FIBRILLATION, LEFT AXIS DEVIATION, ANTERIOR INFARCT, VR 98 , QTc 431 -ECHO: LV systolic function is mildly reduced. Mild anterior wall hypokinesis. LA is moderately dilated, RA is mildly dilated. Mild MR, Moderate TR. Mild Pulmonic Valvular regurg, Small pericardial effusion. Pleural effusion present. -CXR (08/10): Imaging reveals a large heart, sclerotic knob, congestive changes and questionable left base infiltrate. Follow-up recommended -CXR (08/13): Increased opacification of the left hemithorax attributed to the pleural effusion, left lung atelectasis shift of mediastinal structures to the left side. Normal aeration of the lung right lung. No pneumothorax or large pleural effusion is seen. Clinically correlate for malignant process. -CXR (08/16): Since the prior study of 08/13/2018, the left pulmonary and pleural changes have diminished slightly. The remainder the study is unchanged. -CXR (08/18): No significant change -CXR (08/20): No definite interval change is seen as noted above. -CT Chest without contrast: Bibasal consolidation and calcification the left upper lobe compatible with pneumonia. Small to moderate left and small right pleural effusion. Close follow-up CT scan of the chest in one to 2 weeks is recommended to assess 40 clearing of airspace disease and to rule out any underlying pathology. Multiple gallstones are present. -Chest US: Bilateral pleural effusions. -Modified Barium Swallow: Continue puree diet at this time and nectar thick liquid at bedside. Trial of free water protocol of thin liquid between meals. Mouth care followed by small sips of water with chin tucked down. Trial of thin liquid with meals when patient is out of bed in a chair. Monitor tolerance. Continue Swallowing therapy at fdc upon discharge ASSESSMENT/PLAN: 88 y/o F with a PMHx of Anemia, HTN, HLD, DCHF, AF (on Eliquis), restless leg syndrome presented from home for acute hypoxia sats 88%, with progressively worsening SOB, and productive cough for the past week as per son at bedside. 1. Acute hypoxic, Hypercapnic respiratory failure -Likely due to CHF exacerbation in the setting of URTI -Bipap PRN -Flu Swab, RSV, Urine legionella and strep negative -Lasix 40mg PO -Strict I&Os, Daily weights, monitor renal function -Fluid restriction < 1L/day -ABG shows Contraction alkalosis; Placed on Bipap, titrate up as needed -Supplemental O2 to maintain sats >90% -ECHO: LV systolic function is mildly reduced. Mild anterior wall hypokinesis. Small pericardial effusion. Pleural effusion present. -Cardiology (Dr Zavala) consulted, appreciate rec's, Continue Cardizem, Continue Eliquis, Continue IV Lasix Goal BP < 140/90, Begin Metoprolol tartrate 12.5 mg BID, Can Convert to Toprol XL 25mg daily prior to discharge if remains well controlled. Start ACEI or ARB if renal function improves. -CXR (08/10): Congestive changes and questionable left base infiltrate -Repeat CXR noted above -CT Chest: Bibasal consolidation and calcification the left upper lobe compatible with pneumonia. Small to moderate left and small right pleural effusion. -Chest US: Bilateral pleural effusions. -Pulmonology (Dr. Willoughby) Consulted, Appreciate rec's, Inhaled bronchodilators, NIPPV,CHEST PT, CHEST ULTRASOUND IF LARGE EFFUSION NOTED CONSIDER THORACENTESIS 2. Sepsis -Likely 2/2 CAP Atypical PNA -On admission was tachycardic 123, tachypnic 24, LA 2.4, WBC 11.1; Tachycardia and tachypnea have resolved, WBC 8.5, LA 1.2 -ID (Dr. Sousa) consulted, appreciate rec's -Continue Levaquin (08/10-08/19) -Urine cultures noted above, likely contaminanted -Blood cx NGTD 3. Hypernatremia -Na 146 -Free water with Thick nectar -Continue Lasix 40mg daily. -Hyponatremia earlier in admission -TSH, Free T4 noted, Low T3 4. Dysphagia -Speech and Swallow consulted, Appreciate Rec's -Modified Barium Swallow: Continue puree diet at this time and nectar thick liquid at bedside. Trial of free water protocol of thin liquid between meals. Mouth care followed by small sips of water with chin tucked down. Trial of thin liquid with meals when patient is out of bed in a chair. Monitor tolerance. Continue Swallowing therapy at fdc upon discharge 5. Tachy-Mark Syndrome -Tele strip reveals episodes of HR < 40 initially. Improved today -Diltiazem dose reduced to 90mg BID (previously 120mg BID) -Continue Toprol Xl 25 mg daily 6. Urinary retention -Mandujano catheter D/C'ed -Continue to monitor I&Os, Daily weights -If continues to retain, can consider mandujano placement 7. ABDOUL -Likely from Diuretic use -Cr improved -Continue PO Lasix -Will continue to monitor and hydrate if Cr trends up 8. Leg edema -In the setting of fluid overload and recent immobility -US Duplex 2 Legs: No DVT is identified involving either leg. Please see above. -Continue PO Lasix 8. HTN -Cardiology (Dr Zavala) consulted, appreciate rec's, Goal BP < 140/90 (CKD) , d/c hydralazine for now as beta rei introduced. Given episode of relative hypotension, will d/c hydralazine and observe BP trend. -Continue Diltiazem, Lasix, Lopressor; Hydralazine d/c'ed -Can start ACEI or ARB if renal function improves 9. Hx of HLD -Continue Lipitor 10 mg HS 10. Hx of Atrial fibrillation -Continue rate control with Diltiazem (Reduced dose) and Toprol XL -Continue Eliquis 2.5mg BID 11. FEN -PO fluids -Continue to monitor for hyponatremia; Keep K+ >4.0, Mag >2.0 -Dysphagia Pureed diet, [place] Thick liquids, Magic Cup, Ensure Pudding, Aspiration precautions 12. PPx -DVT: On home dose Eliquis Dispo:Tele inpatient; Will likely need SNF before dc Code status: DNR/DNI Visit type - Emergency Visit Emergency Visit: Yes ED Registration Date: 08/10/18 Care time: The patient presented to the Emergency Department on the above date and was hospitalized for further evaluation of their emergent condition. - New Patient This patient is new to me today: No - Critical Care Critical Care patient: No - Discharge Referral Referred to [facility] Med P.C.: No
[2018-08-20] MEDS: ATORVASTATIN CA 10 MG TABLET (FP) PO SCH (22:13)
[2018-08-21 06:58] LABS: ANION GAP 3 MMOL/L (8-16); BLOOD UREA NITROGEN 29 mg/dL (7-18); CALCIUM 8.7 mg/dL (8.5-10.1); CHLORIDE 97 mmol/L (98-107); CO2 43 mmol/L (21-32); CREATININE 1.2 mg/dL (0.55-1.3); GLUCOSE,RANDOM 90 mg/dL (74-106); MAGNESIUM 2.3 mg/dL (1.8-2.4); PHOSPHOROUS 2.9 mg/dL (2.5-4.9); POTASSIUM 3.9 mmol/L (3.5-5.1); SODIUM 142 mmol/L (136-145)
--- NOTE | 2018-08-21 08:57 | PN ---
Teaching Attending Note Name of Resident: Brenda Jameson ATTENDING PHYSICIAN STATEMENT I saw and evaluated the patient. I reviewed the resident's note and discussed the case with the resident. I agree with the resident's findings and plan as documented with exceptions below. SUBJECTIVE: Patient seen and examined. awake and interactive currently, no pain or dyspnea currently. Son at bedside. OBJECTIVE: Vital Signs Period Temp Pulse Resp BP Sys/Kraus Pulse Ox Last 24 Hr 97.1 F-98.3 F 90-110 18-108 102-119/38-70 93-94 Intake & Output 08/18/18 08/19/18 08/20/18 08/21/18 23:59 23:59 23:59 23:59 Intake Total 240 160 100 10 Output Total 850 600 300 400 Balance -610 -440 -200 -390 Weight 142 lb 140 lb 9.6 oz General: lying in bed in no acute distress Chest: Decreased breath sounds at bases, dependent rales, positive air entry Abdomen: soft, obese, NT Extremities: trace pedal edema Home Medications Medication Instructions Recorded Ropinirole HCl [Requip] 1 mg PO DAILY 04/10/17 Simvastatin 20 mg PO DAILY 04/10/17 Timolol 0.5% [Timoptic 0.5%] 1 drop OU BID 04/10/17 Apixaban [Eliquis] 2.5 mg PO BID #28 tablet 04/14/17 Allopurinol [Zyloprim -] 100 mg PO DAILY 09/25/17 Hydralazine HCl 10 mg PO BID 03/20/18 Allopurinol 100 mg PO DAILY 08/10/18 Diltiazem [Cardizem -] 120 mg PO BID 08/10/18 Docusate Sodium [Colace] 100 mg PO DAILY 08/10/18 Ropinirole HCl [Requip] 1 mg PO DAILY 08/10/18 Active Medications Acetaminophen (Tylenol -) 650 mg PO Q6H PRN PRN Reason: HEADACHE Last Admin: 08/19/18 15:08 Dose: 650 mg Albuterol Sulfate (Ventolin 0.083% Nebulizer Soln -) 1 amp NEB Q4H PRN PRN Reason: SHORT OF BREATH/WHEEZING Last Admin: 08/16/18 09:27 Dose: 1 amp Atorvastatin Calcium (Lipitor -) 10 mg PO HS [facility] Last Admin: 10/22/18 22:13 Dose: 10 mg Diltiazem HCl (Cardizem -) 90 mg PO BID [facility] Last Admin: 08/20/18 22:13 Dose: 90 mg Docusate Sodium (Colace -) 100 mg PO DAILY [facility] Last Admin: 08/20/18 10:00 Dose: 100 mg Furosemide (Lasix -) 40 mg PO DAILY [facility] Levalbuterol HCl (Xopenex) 0.63 mg IH RTID [facility] Last Admin: 08/20/18 22:30 Dose: 0.63 mg Melatonin (Melatonin) 5 mg PO HS PRN PRN Reason: INSOMNIA Last Admin: 08/19/18 21:33 Dose: 5 mg Metoprolol Succinate (Toprol Xl -) 25 mg PO DAILY [facility] Last Admin: 08/20/18 09:11 Dose: 25 mg Ropinirole HCl (Requip -) 1 mg PO DAILY [facility] Last Admin: 08/20/18 16:30 Dose: Not Given Timolol Maleate (Timoptic 0.5%) 1 drop OU BID [facility] Last Admin: 08/20/18 22:14 Dose: 1 drop Laboratory Results - last 24 hr 08/21/18 05:30 Sodium 142 Potassium 3.9 Chloride 97 L Carbon Dioxide 43 H Anion Gap 3 L BUN 29 H Creatinine 1.2 Creat Clearance w eGFR 42.30 Random Glucose 90 Calcium 8.7 Phosphorus 2.9 Magnesium 2.3 ASSESSMENT AND PLAN: 88 yof with PMHx of anemia, HTN, HLD, pericardial effusion, diastolic congestive heart failure, atrial fibrillation (on Eliquis), and restless leg syndrome, admitted with acute hypoxic/hypercapneic respiratory failure. -Acute hypoxic/hypercapneic respiratory failure -Bibasilar/JASBIR CAP -Bilateral pleural effusions -Acute on chronic diastolic heart failure exacerbation -ABDOUL, suspect from aggressive diuresis -Contraction alkalosis. -Hypernatremia, likely from lack of free water intake/lasix -Pulmonary HTN -Afib with tachy keren syndrome -Lower uncomplicated E. Coli/gp d streptococcus. -Urinary retention -AMs, suspect toxic metabolic encephalopathy from above -Restless leg syndrome Plan: Mental status/breathing improved. Chest ultrasound with persistent pleural effusions. Discussed with Dr. Willoughby, plan to hold eliquis x 48 hours, therapeutic thoracentesis tomorrow, NPO after midnight. lasix 40 mg daily for now. Daily weights and renal function monitoring. Telemetry reviewed. Cardizem/metoprolol. Cardiology input appreciated. Eliquis on hold as above. 2d echo results reviewed. Keep K > 4 and Mg > 2 Repete PO k, mg prn. MBS noted, dysphagia pureed with nectar thick with occasional free water as tolerated. Encourage free water with thickener as tolerated, Na improved. Encourate PT and mobilization. s/p 10 days of levaquin, off abx, monitor clinically. Standing and prn nebs. Blood cx/RSV/legionella/Flu swab neg. Voiding trial. DVTPPX eliquis on hold as above. PT eval noted. Code status/DNR/DNI dispo plan d/c to [facility] tomorrow after thoracocentesis if no concerns. Plan discussed with son at bedside in detail, all questions answered.
[2018-08-21] MEDS: LEVALBUTEROL HCL 0.63 MG/3 ML VIAL.NEB. IH SCH ×4 (09:00→20:38)
[2018-08-21] MEDS ORDERED: PT OWN MED DRAWER 7, Y5N ONE ×2 (09:17→14:40)
--- NOTE | 2018-08-21 10:52 | PN ---
Progress Note, Physician Chief Complaint: Pt alert and oriented x 3 ; feels better (less SOB and knee pain); History of Present Illness: The patient is a 88 year old white female with a significant PMH of anemia, HTN , HLD, systolic (mildly reduced LVEF) and diastolic congestive heart failure, CKD stage III, atrial fibrillation (on Eliquis), restless leg syndrome, chronic knee pain with reduced ROM, who presents to the emergency department with progressively worsening shortness of breath and productive cough for the past week as per son at bedside. Patient states his cough is productive of green sputum with associated wheezing and shortness of breath. Son at bedside also states the patient has been more confused over the past few days. Patient is not on home O2. The patient endorses chronic lower extremity swelling, but denies chest pain, headache and dizziness. Denies fever, chills, nausea, vomit, diarrhea and constipation. Denies dysuria, frequency, urgency and hematuria. Allergies: NKA Past surgical history: Social history: No reported PCP: Dr. [place] Pascual Store Product Demonstrator: Dr. Zavala - Current Medication List Current Medications: Active Medications Acetaminophen (Tylenol -) 650 mg PO Q6H PRN PRN Reason: HEADACHE Last Admin: 08/19/18 15:08 Dose: 650 mg Albuterol Sulfate (Ventolin 0.083% Nebulizer Soln -) 1 amp NEB Q4H PRN PRN Reason: SHORT OF BREATH/WHEEZING Last Admin: 08/16/18 09:27 Dose: 1 amp Atorvastatin Calcium (Lipitor -) 10 mg PO HS REPLACED BY [facility] Last Admin: 08/20/18 22:13 Dose: 10 mg Diltiazem HCl (Cardizem -) 90 mg PO BID [facility] Last Admin: 08/20/18 22:13 Dose: 90 mg Docusate Sodium (Colace -) 100 mg PO DAILY [facility] Last Admin: 08/20/18 10:00 Dose: 100 mg Furosemide (Lasix -) 40 mg PO DAILY [facility] Levalbuterol HCl (Xopenex) 0.63 mg IH RTID [facility] Last Admin: 08/20/18 22:30 Dose: 0.63 mg Melatonin (Melatonin) 5 mg PO HS PRN PRN Reason: INSOMNIA Last Admin: 08/19/18 21:33 Dose: 5 mg Metoprolol Succinate (Toprol Xl -) 25 mg PO DAILY [facility] Last Admin: 10/22/18 09:11 Dose: 25 mg Ropinirole HCl (Requip -) 1 mg PO DAILY [facility] Last Admin: 08/20/18 16:30 Dose: Not Given Timolol Maleate (Timoptic 0.5%) 1 drop OU BID [facility]PL[facility] Last Admin: 08/20/18 22:14 Dose: 1 drop - Objective Vital Signs: Vital Signs Temperature 98.0 F 08/21/18 09:00 Pulse Rate 92 H 08/21/18 01:58 Respiratory Rate 108 H 08/21/18 09:00 Blood Pressure 113/61 08/21/18 09:00 O2 Sat by Pulse Oximetry (%) 96 08/21/18 10:00 Constitutional: Yes: Calm Eyes: Yes: WNL HENT: Yes: WNL Neck: Yes: Decreased ROM Cardiovascular: Yes: Pulse Irregular, Murmur, S1 (varies in intensity), S2 Respiratory: Yes: Diminished Gastrointestinal: Yes: Soft ...Rectal Exam: Yes: Deferred Genitourinary: No: Anuria Breast(s): Yes: WNL Musculoskeletal: Yes: Joint Stiffness, Muscle Pain, Muscle Weakness Extremities: Yes: Cool Edema: Yes Edema: LLE: Trace, RLE: Trace Peripheral Pulses WNL: Yes Integumentary: Yes: WNL Neurological: Yes: Alert, Oriented, Weakness Psychiatric: Yes: Other (anxiety) Labs: CBC, BMP 08/18/18 05:30 08/21/18 05:30 INR, PTT INR 1.41 (0.83-1.09) H 08/10/18 21:40 Problem List - Problems (1) Acute on chronic systolic (congestive) heart failure Assessment/Plan: On metoprolol, diltiazem (mild systolic dysfunction) and furosemide. Bilatertal pulmonary effusions remain.; SOB on mild exertion. Start ARB (Losartan 25 mg daily (systolic CHF). F/u BUn/Cr, electrolytes, daily weight, electrolytes. Code(s): I50.23 - ACUTE ON CHRONIC SYSTOLIC (CONGESTIVE) HEART FAILURE (2) Malignancy Assessment/Plan: r/o lung malignancy: ateletasis, pleural effusion, mediastinal stricutres left- sided. CT chest recommended to be repeated in 1-2 weeks. f/u with shop and alteration tailor. Code(s): C80.1 - MALIGNANT (PRIMARY) NEOPLASM, UNSPECIFIED (3) Elevated brain natriuretic peptide (BNP) level Code(s): R79.89 - OTHER SPECIFIED ABNORMAL FINDINGS OF BLOOD CHEMISTRY (4) Paroxysmal atrial fibrillation Assessment/Plan: Priods of rapid ventricular response, especially when moved or physical therapy is given. On metoprolol and diltiazem for HR control. On apixaban for anticoagulation. Code(s): I48.0 - PAROXYSMAL ATRIAL FIBRILLATION (5) Pericardial effusion Code(s): I31.3 - PERICARDIAL EFFUSION (NONINFLAMMATORY) (6) Pneumonia Assessment/Plan: Off antibiotics. Code(s): J18.9 - PNEUMONIA, UNSPECIFIED ORGANISM Qualifiers: Pneumonia type: due to unspecified organism Laterality: left (7) Chronic kidney disease Code(s): N18.9 - CHRONIC KIDNEY DISEASE, UNSPECIFIED Qualifiers: Chronic kidney disease stage: stage 2 (mild) Qualified Code(s): N18.2 - Chronic kidney disease, stage 2 (mild) (8) HTN (hypertension) Code(s): I10 - ESSENTIAL (PRIMARY) HYPERTENSION Qualifiers: Hypertension type: essential hypertension Qualified Code(s): I10 - Essential (primary) hypertension (9) Hypercholesterolemia Code(s): E78.00 - PURE HYPERCHOLESTEROLEMIA, UNSPECIFIED (10) Osteoarthritis Code(s): M19.90 - UNSPECIFIED OSTEOARTHRITIS, UNSPECIFIED SITE Qualifiers: Osteoarthritis location: knee Osteoarthritis type: unspecified Laterality : right Qualified Code(s): M17.11 - Unilateral primary osteoarthritis, right knee (11) Renal dysfunction Code(s): N28.9 - DISORDER OF KIDNEY AND URETER, UNSPECIFIED (12) Respiratory distress Code(s): R06.03 - ACUTE RESPIRATORY DISTRESS
[2018-08-21] MEDS: metoPROLOL SUCCINATE 25 MG TAB.SR.24H (FP) PO SCH (11:01)
[2018-08-21] MEDS: DOCUSATE SODIUM 100 MG CAPSULE (FP) PO SCH (11:02)
[2018-08-21] MEDS: FUROSEMIDE 20 MG TABLET (FP) PO SCH (11:02)
[2018-08-21] MEDS: dilTIAZem HCL 30 MG TABLET (FP) PO SCH ×2 (11:02→22:58)
[2018-08-21] MEDS: rOPINIRole HCL 1 MG TABLET (FP) PO SCH (11:03)
[2018-08-21] MEDS: TIMOLOL 0.5% OPHTHALMIC SOL 5 ML BOTTLE OU SCH ×2 (11:03→22:58)
--- NOTE | 2018-08-21 11:30 | PN ---
Progress Note, Physician History of Present Illness: PULMONARY AWAKE,ALERT,COMFORTABLE AT REST + DYSPNEA WITH MIN EXERTION - Current Medication List Current Medications: Active Medications Acetaminophen (Tylenol -) 650 mg PO Q6H PRN PRN Reason: HEADACHE Last Admin: 08/19/18 15:08 Dose: 650 mg Albuterol Sulfate (Ventolin 0.083% Nebulizer Soln -) 1 amp NEB Q4H PRN PRN Reason: SHORT OF BREATH/WHEEZING Last Admin: 08/16/18 09:27 Dose: 1 amp Atorvastatin Calcium (Lipitor -) 10 mg PO HS [facility] Last Admin: 08/20/18 22:13 Dose: 10 mg Diltiazem HCl (Cardizem -) 90 mg PO BID [facility] Last Admin: 08/21/18 11:02 Dose: 90 mg Docusate Sodium (Colace -) 100 mg PO DAILY [facility] Last Admin: 08/21/18 11:02 Dose: 100 mg Furosemide (Lasix -) 40 mg PO DAILY [facility] Last Admin: 08/21/18 11:02 Dose: 40 mg Levalbuterol HCl (Xopenex) 0.63 mg IH RTID [facility] Last Admin: 08/20/18 22:30 Dose: 0.63 mg Melatonin (Melatonin) 5 mg PO HS PRN PRN Reason: INSOMNIA Last Admin: 08/19/18 21:33 Dose: 5 mg Metoprolol Succinate (Toprol Xl -) 25 mg PO DAILY [facility] Last Admin: 08/21/18 11:01 Dose: 25 mg Ropinirole HCl (Requip -) 1 mg PO DAILY [facility] Last Admin: 08/21/18 11:03 Dose: 1 mg Timolol Maleate (Timoptic 0.5%) 1 drop OU BID [facility] Last Admin: 08/21/18 11:03 Dose: 1 drop - Objective Vital Signs: Vital Signs Temperature 98.0 F 08/21/18 09:00 Pulse Rate 92 H 08/21/18 01:58 Respiratory Rate 108 H 08/21/18 09:00 Blood Pressure 113/61 08/21/18 09:00 O2 Sat by Pulse Oximetry (%) 96 08/21/18 10:00 Constitutional: Yes: Well Nourished, Calm Eyes: Yes: WNL HENT: Yes: WNL Neck: Yes: WNL Cardiovascular: Yes: Pulse Irregular, S1, S2 Respiratory: Yes: Rales (DIMINISHED BS L BASE) Gastrointestinal: Yes: Normal Bowel Sounds, Soft Extremities: Yes: WNL Edema: No Labs: CBC, BMP 08/21/18 05:30 INR, PTT INR 1.41 (0.83-1.09) H 08/10/18 21:40 Problem List - Problems (1) Acute on chronic diastolic (congestive) heart failure Code(s): I50.33 - ACUTE ON CHRONIC DIASTOLIC (CONGESTIVE) HEART FAILURE (2) Acute on chronic systolic (congestive) heart failure Code(s): I50.23 - ACUTE ON CHRONIC SYSTOLIC (CONGESTIVE) HEART FAILURE (3) Elevated brain natriuretic peptide (BNP) level Code(s): R79.89 - OTHER SPECIFIED ABNORMAL FINDINGS OF BLOOD CHEMISTRY (4) Shortness of breath Code(s): R06.02 - SHORTNESS OF BREATH (5) HTN (hypertension) Code(s): I10 - ESSENTIAL (PRIMARY) HYPERTENSION Qualifiers: Hypertension type: essential hypertension Qualified Code(s): I10 - Essential (primary) hypertension (6) Hypercholesterolemia Code(s): E78.00 - PURE HYPERCHOLESTEROLEMIA, UNSPECIFIED (7) Osteoarthritis Code(s): M19.90 - UNSPECIFIED OSTEOARTHRITIS, UNSPECIFIED SITE Qualifiers: Osteoarthritis location: knee Osteoarthritis type: unspecified Laterality : right Qualified Code(s): M17.11 - Unilateral primary osteoarthritis, right knee (8) Acute respiratory failure with hypoxia and hypercapnia Code(s): J96.01 - ACUTE RESPIRATORY FAILURE WITH HYPOXIA; J96.02 - ACUTE RESPIRATORY FAILURE WITH HYPERCAPNIA (9) Pleural effusion Code(s): J90 - PLEURAL EFFUSION, NOT ELSEWHERE CLASSIFIED Assessment/Plan IMP ACUTE HYPOXEMIC/HYPERCAPNEIC RESPIRATORY FAILURE IMPROVING ACUTE ON CHRONIC CHF PULMONARY HTN PNEUMONIA AFIB H/O HTN HLD RESTLESS LEG SYNDROME PLAN INHALED BRONCHODILATORS LASIX INHALED BRONCHODILATORS O2 TO MAINTAIN O2 SAT >92% NIPPV NEEDED CHEST PT THORACENTESIS IN AM DR GODDARD Problem List - Problems (1) Acute on chronic diastolic (congestive) heart failure Code(s): I50.33 - ACUTE ON CHRONIC DIASTOLIC (CONGESTIVE) HEART FAILURE (2) Acute on chronic systolic (congestive) heart failure Code(s): I50.23 - ACUTE ON CHRONIC SYSTOLIC (CONGESTIVE) HEART FAILURE (3) Elevated brain natriuretic peptide (BNP) level Code(s): R79.89 - OTHER SPECIFIED ABNORMAL FINDINGS OF BLOOD CHEMISTRY (4) Shortness of breath Code(s): R06.02 - SHORTNESS OF BREATH (5) HTN (hypertension) Code(s): I10 - ESSENTIAL (PRIMARY) HYPERTENSION Qualifiers: Hypertension type: essential hypertension Qualified Code(s): I10 - Essential (primary) hypertension (6) Hypercholesterolemia Code(s): E78.00 - PURE HYPERCHOLESTEROLEMIA, UNSPECIFIED (7) Osteoarthritis Code(s): M19.90 - UNSPECIFIED OSTEOARTHRITIS, UNSPECIFIED SITE Qualifiers: Osteoarthritis location: knee Osteoarthritis type: unspecified Laterality : right Qualified Code(s): M17.11 - Unilateral primary osteoarthritis, right knee (8) Acute respiratory failure with hypoxia and hypercapnia Code(s): J96.01 - ACUTE RESPIRATORY FAILURE WITH HYPOXIA; J96.02 - ACUTE RESPIRATORY FAILURE WITH HYPERCAPNIA (9) Pleural effusion Code(s): J90 - PLEURAL EFFUSION, NOT ELSEWHERE CLASSIFIED
--- NOTE | 2018-08-21 11:59 | PN ---
Progress Note, NUMERICAL CONTROL OPERATOR - Note Progress Note: Selected Entries 08/20/18 08/20/18 08/20/18 02:18 05:29 14:00 Breakfast Temperature 97.6 F 98.2 F 98.1 F 08/20/18 08/20/18 08/21/18 17:00 22:00 01:58 Breakfast Temperature 97.1 F L 97.1 F L 98.2 F 08/21/18 08/21/18 08/21/18 06:00 09:00 10:00 Breakfast 25% Temperature 98.3 F 98.0 F 08/21/18 11:40 Breakfast 75% Temperature Laboratory Tests 08/18/18 08/21/18 05:30 05:30 WBC 8.5 Sodium 142 BUN 29 H MBS reviewed with staff. Pt seen bedside, lying flat. Smiling and looks comfortable.. Suggest free water protocol for improved hydration. Monitor tolerance
--- NOTE | 2018-08-21 18:47 | PN ---
Physical Exam: SUBJECTIVE: Patient seen and examined this morning at bedside. No new complaints. Denies fevers, chills, chest pain, SOB, nausea, vomiting, diarrhea. Patient was bladder scanned x2 overnight, found to be retain ~350 mls and a straight cath was done by nursing staff. OBJECTIVE: Vital Signs Period Temp Pulse Resp BP Sys/Kraus Pulse Ox Last 24 Hr 97.1 F-98.3 F 88-108 20-108 102-119/52-61 93-96 Intake & Output 08/21/18 08/21/18 08/21/18 07:59 15:59 23:59 Intake Total 10 340 Output Total 400 500 Balance -390 340 -500 Weight 63.775 kg GENERAL: A&Ox3, NAD HEAD: NCAT EYES: PERRL, EOMI ENT: Hard of hearing, oropharynx clear without exudates, moist mucous membranes NECK: supple, +JVD, Improving LUNGS: Decreased breath sounds at the bases, on 3L NC HEART: Regular rate and rhythm, normal S1 and S2 ABDOMEN: Soft, nontender, not distended, + bowel sounds, no guarding EXTREMITIES: 2+ pulses, 1+ pitting edema b/l improving NEUROLOGICAL: Cranial nerves II-XII intact. Normal speech SKIN: Warm, dry, no rashes or lesions noted Laboratory Results - last 24 hr 08/21/18 05:30 Sodium 142 Potassium 3.9 Chloride 97 L Carbon Dioxide 43 H Anion Gap 3 L BUN 29 H Creatinine 1.2 Creat Clearance w eGFR 42.30 Random Glucose 90 Calcium 8.7 Phosphorus 2.9 Magnesium 2.3 Microbiology 08/10/18 20:00 Blood - Peripheral Venous Blood Culture - Final NO GROWTH AFTER 5 DAYS INCUBATION 08/10/18 20:50 Blood - Peripheral Venous Blood Culture - Final NO GROWTH AFTER 5 DAYS INCUBATION 08/10/18 21:50 Urine - Urine Clean Catch Urine Culture - Final Escherichia Coli Group D Strep Or Entero Coccus 08/11/18 10:41 Urine For Antigen Detection Legionella Antigen - Final 08/11/18 10:41 Urine For Antigen Detection Streptococcus pneumoniae Antigen (M - Final 08/11/18 03:51 Nasopharyngeal Swab Respiratory Syncytial Virus Ag - Final 08/11/18 03:51 Nasopharyngeal Swab Influenza Types A,B Antigen - Final 08/11/18 03:51 Nasopharyngeal Swab - Final Active Medications Acetaminophen (Tylenol -) 650 mg PO Q6H PRN PRN Reason: HEADACHE Last Admin: 08/19/18 15:08 Dose: 650 mg Albuterol Sulfate (Ventolin 0.083% Nebulizer Soln -) 1 amp NEB Q4H PRN PRN Reason: SHORT OF BREATH/WHEEZING Last Admin: 08/16/18 09:27 Dose: 1 amp Atorvastatin Calcium (Lipitor -) 10 mg PO HS [facility] Last Admin: 08/20/18 22:13 Dose: 10 mg Diltiazem HCl (Cardizem -) 90 mg PO BID [facility] Last Admin: 08/21/18 11:02 Dose: 90 mg Docusate Sodium (Colace -) 100 mg PO DAILY [facility] Last Admin: 08/21/18 11:02 Dose: 100 mg Furosemide (Lasix -) 40 mg PO DAILY [facility] Last Admin: 08/21/18 11:02 Dose: 40 mg Levalbuterol HCl (Xopenex) 0.63 mg IH RTID [facility] Last Admin: 08/21/18 14:15 Dose: 0.63 mg Melatonin (Melatonin) 5 mg PO HS PRN PRN Reason: INSOMNIA Last Admin: 08/19/18 21:33 Dose: 5 mg Metoprolol Succinate (Toprol Xl -) 25 mg PO DAILY [facility] Last Admin: 08/21/18 11:01 Dose: 25 mg Ropinirole HCl (Requip -) 1 mg PO DAILY [facility] Last Admin: 08/21/18 11:03 Dose: 1 mg Timolol Maleate (Timoptic 0.5%) 1 drop OU BID [facility] Last Admin: 08/21/18 11:03 Dose: 1 drop IMAGING: -US Duplex 2 Legs: No DVT is identified involving either leg. Please see above. -EKG (08/10): ATRIAL FIBRILLATION WITH RAPID VENTRICULAR RESPONSE WITH PREMATURE VENTRICULAR OR ABERRANTLY CONDUCTED COMPLEXES, LEFT AXIS DEVIATION, QTc 482 -EKG (08/18): ATRIAL FIBRILLATION, LEFT AXIS DEVIATION, ANTERIOR INFARCT, VR 98 , QTc 431 -ECHO: LV systolic function is mildly reduced. Mild anterior wall hypokinesis. LA is moderately dilated, RA is mildly dilated. Mild MR, Moderate TR. Mild Pulmonic Valvular regurg, Small pericardial effusion. Pleural effusion present. -CXR (08/10): Imaging reveals a large heart, sclerotic knob, congestive changes and questionable left base infiltrate. Follow-up recommended -CXR (08/13): Increased opacification of the left hemithorax attributed to the pleural effusion, left lung atelectasis shift of mediastinal structures to the left side. Normal aeration of the lung right lung. No pneumothorax or large pleural effusion is seen. Clinically correlate for malignant process. -CXR (08/16): Since the prior study of 08/13/2018, the left pulmonary and pleural changes have diminished slightly. The remainder the study is unchanged. -CXR (08/18): No significant change -CXR (08/20): No definite interval change is seen as noted above. -CT Chest without contrast: Bibasal consolidation and calcification the left upper lobe compatible with pneumonia. Small to moderate left and small right pleural effusion. Close follow-up CT scan of the chest in one to 2 weeks is recommended to assess 40 clearing of airspace disease and to rule out any underlying pathology. Multiple gallstones are present. -Chest US: Bilateral pleural effusions. -Modified Barium Swallow: Continue puree diet at this time and nectar thick liquid at bedside. Trial of free water protocol of thin liquid between meals. Mouth care followed by small sips of water with chin tucked down. Trial of thin liquid with meals when patient is out of bed in a chair. Monitor tolerance. Continue Swallowing therapy at assisted upon discharge ASSESSMENT/PLAN: 88 y/o F with a PMHx of Anemia, HTN, HLD, DCHF, AF (on Eliquis), restless leg syndrome presented from home for acute hypoxia sats 88%, with progressively worsening SOB, and productive cough for the past week as per son at bedside. 1. Acute hypoxic, Hypercapnic respiratory failure -Likely due to CHF exacerbation in the setting of URTI -Given Chest US Findings, will hold Eliquis for therapeutic thoracentesis tomorrow -Bipap PRN -Flu Swab, RSV, Urine legionella and strep negative -Lasix 40mg PO -Strict I&Os, Daily weights, monitor renal function -Fluid restriction < 1L/day -ABG shows Contraction alkalosis; Placed on Bipap, titrate up as needed -Supplemental O2 to maintain sats >90% -ECHO: LV systolic function is mildly reduced. Mild anterior wall hypokinesis. Small pericardial effusion. Pleural effusion present. -Cardiology (Dr Zavala) consulted, appreciate rec's, Continue Cardizem, Continue Eliquis, Continue IV Lasix Goal BP < 140/90, Begin Metoprolol tartrate 12.5 mg BID, Can Convert to Toprol XL 25mg daily prior to discharge if remains well controlled. Start ACEI or ARB if renal function improves. -CXR (08/10): Congestive changes and questionable left base infiltrate -Repeat CXR noted above -CT Chest: Bibasal consolidation and calcification the left upper lobe compatible with pneumonia. Small to moderate left and small right pleural effusion. -Chest US: Bilateral pleural effusions. -Pulmonology (Dr. Willoughby) Consulted, Appreciate rec's, Inhaled bronchodilators, NIPPV,CHEST PT, CHEST ULTRASOUND IF LARGE EFFUSION NOTED CONSIDER THORACENTESIS 2. Sepsis -Likely 2/2 CAP Atypical PNA -On admission was tachycardic 123, tachypnic 24, LA 2.4, WBC 11.1; Tachycardia and tachypnea have resolved, WBC 8.5, LA 1.2 -ID (Dr. Sousa) consulted, appreciate rec's -Completed Levaquin course (08/10-08/19) -Urine cultures noted above, likely contaminanted -Blood cx NGTD 3. Hypernatremia -Resolved -Free water with Thick nectar -Continue Lasix 40mg daily. -Hyponatremia earlier in admission -TSH, Free T4 noted, Low T3 4. Dysphagia -Speech and Swallow consulted, Appreciate Rec's -Modified Barium Swallow: Continue puree diet at this time and nectar thick liquid at bedside. Trial of free water protocol of thin liquid between meals. Mouth care followed by small sips of water with chin tucked down. Trial of thin liquid with meals when patient is out of bed in a chair. Monitor tolerance. Continue Swallowing therapy at assisted upon discharge 5. Tachy-Mark Syndrome -Tele strip reveals episodes of HR < 40 initially. Improved today -Diltiazem dose reduced to 90mg BID (previously 120mg BID) -Continue Toprol Xl 25 mg daily 6. Urinary retention -Mandujano catheter D/C'ed -Continue to monitor I&Os, Daily weights -If continues to retain, can consider mandujano placement 7. ABDOUL -Likely from Diuretic use -Cr improved -Continue PO Lasix -Will continue to monitor and hydrate if Cr trends up 8. Leg edema -In the setting of fluid overload and recent immobility -US Duplex 2 Legs: No DVT is identified involving either leg. Please see above. -Continue PO Lasix 9. HTN -Cardiology (Dr Zavala) consulted, appreciate rec's, Goal BP < 140/90 (CKD) , d/c hydralazine for now as beta rei introduced. Given episode of relative hypotension, will d/c hydralazine and observe BP trend. -Continue Diltiazem, Lasix, Lopressor; Hydralazine d/c'ed -Can start ACEI or ARB if renal function improves 10. Hx of HLD -Continue Lipitor 10 mg HS 11. Hx of Atrial fibrillation -Continue rate control with Diltiazem (Reduced dose) and Toprol XL -Continue Eliquis 2.5mg BID 12. FEN -PO fluids -Continue to monitor for hyponatremia; Keep K+ >4.0, Mag >2.0 -NPO after midnight; Post procedure can resume Dysphagia Pureed diet, [place] Thick liquids, Magic Cup, Ensure Pudding, Aspiration precautions 13. PPx -DVT: Hold home dose Eliquis for procedure tmrw Dispo:Tele inpatient; Will likely need SNF before dc Code status: DNR/DNI Visit type - Emergency Visit Emergency Visit: Yes ED Registration Date: 08/10/18 Care time: The patient presented to the Emergency Department on the above date and was hospitalized for further evaluation of their emergent condition. - New Patient This patient is new to me today: No - Critical Care Critical Care patient: No
[2018-08-21 19:39] VITALS: BMI 25.6
[2018-08-21] MEDS: ATORVASTATIN CA 10 MG TABLET (FP) PO SCH (22:58)
[2018-08-22] MEDS ORDERED: PT OWN MED DRAWER 7, Y5N ONE (07:43)
--- NOTE | 2018-08-22 08:00 | PN ---
Teaching Attending Note Name of Resident: Brenda Jameson ATTENDING PHYSICIAN STATEMENT I saw and evaluated the patient. I reviewed the resident's note and discussed the case with the resident. I agree with the resident's findings and plan as documented with exceptions below. SUBJECTIVE: Patient seen and examined. awake, interactive, breathing improved, no new pain or complaints. OBJECTIVE: Vital Signs Period Temp Pulse Resp BP Sys/Kraus Pulse Ox Last 24 Hr 98.0 F-98.5 F 88-104 17-108 107-113/52-61 96-98 Intake & Output 08/19/18 08/20/18 08/21/18 08/22/18 23:59 23:59 23:59 23:59 Intake Total 160 100 470 60 Output Total 268 873 7436 Balance -440 -200 -1130 60 Weight 140 lb 9.6 oz 141 lb 3.2 oz General: sitting in bed in no acute distress chest: decreased breath sounds at bases, improved air entry Abdomen: soft, obese, NT extremities: no edema, Active Medications Acetaminophen (Tylenol -) 650 mg PO Q6H PRN PRN Reason: HEADACHE Last Admin: 08/19/18 15:08 Dose: 650 mg Albuterol Sulfate (Ventolin 0.083% Nebulizer Soln -) 1 amp NEB Q4H PRN PRN Reason: SHORT OF BREATH/WHEEZING Last Admin: 08/16/18 09:27 Dose: 1 amp Atorvastatin Calcium (Lipitor -) 10 mg PO HS [facility] Last Admin: 08/21/18 22:58 Dose: 10 mg Diltiazem HCl (Cardizem -) 90 mg PO BID [facility] Last Admin: 08/21/18 22:58 Dose: 90 mg Docusate Sodium (Colace -) 100 mg PO DAILY [facility] Last Admin: 08/21/18 11:02 Dose: 100 mg Furosemide (Lasix -) 40 mg PO DAILY [facility] Last Admin: 08/21/18 11:02 Dose: 40 mg Levalbuterol HCl (Xopenex) 0.63 mg IH RTID [facility] Last Admin: 08/21/18 20:38 Dose: 0.63 mg Melatonin (Melatonin) 5 mg PO HS PRN PRN Reason: INSOMNIA Last Admin: 08/19/18 21:33 Dose: 5 mg Metoprolol Succinate (Toprol Xl -) 25 mg PO DAILY [facility] Last Admin: 08/21/18 11:01 Dose: 25 mg Ropinirole HCl (Requip -) 1 mg PO DAILY [facility] Last Admin: 08/21/18 11:03 Dose: 1 mg Timolol Maleate (Timoptic 0.5%) 1 drop OU BID [facility] Last Admin: 08/21/18 22:58 Dose: 1 drop ASSESSMENT AND PLAN: 88 yof with PMHx of anemia, HTN, HLD, pericardial effusion, diastolic congestive heart failure, atrial fibrillation (on Eliquis), and restless leg syndrome, admitted with acute hypoxic/hypercapneic respiratory failure. -Acute hypoxic/hypercapneic respiratory failure -Bibasilar/JASBIR CAP -Bilateral pleural effusions -Acute on chronic diastolic heart failure exacerbation -ABDOUL, suspect from aggressive diuresis -Contraction alkalosis. -Hypernatremia, likely from lack of free water intake/lasix -Pulmonary HTN -Afib with tachy keren syndrome -Lower uncomplicated E. Coli/gp d streptococcus. -Urinary retention -AMs, suspect toxic metabolic encephalopathy from above -Restless leg syndrome Plan: Doing well s/p thoracentesis, Repeat CXR with no pneumothorax. Follow up chest imaging in 1-2 weeks and follow up with Dr. Willoughby. Lasix 40 mg daily s/p abx weight monitoring at the SNF Dysphagia pureed diet with nectar thick liquids, occasional free water as tolerated Resume olive Code status/DNR/DNI dispo plan d/c to [facility] today Plan discussed with son at bedside in detail, all questions answered.
[2018-08-22] MEDS: LEVALBUTEROL HCL 0.63 MG/3 ML VIAL.NEB. IH SCH ×2 (08:17→14:55)
[2018-08-22] MEDS: FUROSEMIDE 20 MG TABLET (FP) PO SCH (09:49)
[2018-08-22] MEDS: rOPINIRole HCL 1 MG TABLET (FP) PO SCH (09:50)
[2018-08-22] MEDS: metoPROLOL SUCCINATE 25 MG TAB.SR.24H (FP) PO SCH (09:51)
[2018-08-22] MEDS: DOCUSATE SODIUM 100 MG CAPSULE (FP) PO SCH (09:51)
[2018-08-22] MEDS: dilTIAZem HCL 30 MG TABLET (FP) PO SCH (10:00)
[2018-08-22] MEDS ORDERED: LOSARTAN POTASSIUM 25 MG TABLET PO SCH (10:00)
[2018-08-22 10:10] LABS: INR 1.15 (0.83-1.09); PROTHROMBIN TIME (PATIENT) 13.6 SEC (9.7-13.0)
--- NOTE | 2018-08-22 10:43 | PN ---
Progress Note, Physician History of Present Illness: 87 yo F with a h/o Anemia, HTN, HLD, OA, Diastolic Congestive heart failure, CKD stage III, Atrial fibrillation (Eliquis), restless leg syndrome who p/w SOB. Per patient son at bedside and primary caregiver, pt. has been experiencing cough, with green sputum production x 1 week, with progressive wheezing, and SOB. Son also reports 2 weeks of worsening mental status and night time confusion. + chronic leg swelling, and orthopnea. No home O2 requirements. Patient denies N/V, F/C, Palpitations, CP, SOB, urinary complaints, abdominal pain, diarrhea, constipation, lightheadedness, weakness, sensory changes. PMHx: as noted above ROS: as noted SHx: Denies tobacco use, IVDA, Etoh Allergies: NKDA - Current Medication List Current Medications: Active Medications Acetaminophen (Tylenol -) 650 mg PO Q6H PRN PRN Reason: HEADACHE Last Admin: 08/19/18 15:08 Dose: 650 mg Albuterol Sulfate (Ventolin 0.083% Nebulizer Soln -) 1 amp NEB Q4H PRN PRN Reason: SHORT OF BREATH/WHEEZING Last Admin: 08/16/18 09:27 Dose: 1 amp Atorvastatin Calcium (Lipitor -) 10 mg PO HS [facility] Last Admin: 08/21/18 22:58 Dose: 10 mg Diltiazem HCl (Cardizem -) 90 mg PO BID [facility] Last Admin: 08/21/18 22:58 Dose: 90 mg Docusate Sodium (Colace -) 100 mg PO DAILY [facility] Last Admin: 08/22/18 09:51 Dose: 100 mg Furosemide (Lasix -) 40 mg PO DAILY [facility] Last Admin: 08/22/18 09:49 Dose: 40 mg Levalbuterol HCl (Xopenex) 0.63 mg IH RTID [facility] Last Admin: 08/22/18 08:17 Dose: 0.63 mg Losartan Potassium (Cozaar -) 25 mg PO DAILY [facility] Melatonin (Melatonin) 5 mg PO HS PRN PRN Reason: INSOMNIA Last Admin: 08/19/18 21:33 Dose: 5 mg Metoprolol Succinate (Toprol Xl -) 25 mg PO DAILY [facility] Last Admin: 08/22/18 09:51 Dose: 25 mg Ropinirole HCl (Requip -) 1 mg PO DAILY [facility] Last Admin: 10/24/18 09:50 Dose: 1 mg Timolol Maleate (Timoptic 0.5%) 1 drop OU BID [facility] Last Admin: 08/21/18 22:58 Dose: 1 drop - Objective Vital Signs: Vital Signs Temperature 98.2 F 08/22/18 06:00 Pulse Rate 104 H 08/22/18 06:00 Respiratory Rate 17 08/22/18 06:00 Blood Pressure 107/54 L 08/22/18 06:00 O2 Sat by Pulse Oximetry (%) 98 08/21/18 22:00 Eyes: Yes: WNL, Conjunctiva Clear, EOM Intact HENT: Yes: WNL, Atraumatic, Normocephalic Neck: Yes: WNL, Supple, Trachea Midline Cardiovascular: Yes: WNL, Regular Rate and Rhythm Respiratory: Yes: WNL, Regular, CTA Bilaterally Gastrointestinal: Yes: WNL, Normal Bowel Sounds Genitourinary: Yes: WNL Musculoskeletal: Yes: WNL Extremities: Yes: WNL Edema: No Integumentary: Yes: WNL Neurological: Yes: WNL, Alert, Oriented ...Motor Strength: WNL Psychiatric: Yes: WNL Labs: CBC, BMP 08/18/18 05:30 08/21/18 05:30 INR, PTT INR 1.15 (0.83-1.09) H 08/22/18 09:05 Problem List - Problems (1) Acute on chronic diastolic (congestive) heart failure Code(s): I50.33 - ACUTE ON CHRONIC DIASTOLIC (CONGESTIVE) HEART FAILURE (2) Elevated brain natriuretic peptide (BNP) level Code(s): R79.89 - OTHER SPECIFIED ABNORMAL FINDINGS OF BLOOD CHEMISTRY (3) Hypoxia Code(s): R09.02 - HYPOXEMIA (4) Shortness of breath Code(s): R06.02 - SHORTNESS OF BREATH (5) Kthat-ru-ccaomjc kidney injury Code(s): N17.9 - ACUTE KIDNEY FAILURE, UNSPECIFIED; N18.9 - CHRONIC KIDNEY DISEASE, UNSPECIFIED Qualifiers: Acute renal failure type: unspecified (6) Allergic reaction Code(s): T78.40XA - ALLERGY, UNSPECIFIED, INITIAL ENCOUNTER Qualifiers: Encounter type: initial encounter Qualified Code(s): T78.40XA - Allergy, unspecified, initial encounter (7) Atrial fibrillation with RVR Code(s): I48.91 - UNSPECIFIED ATRIAL FIBRILLATION (8) Atrial flutter with rapid ventricular response Code(s): I48.92 - UNSPECIFIED ATRIAL FLUTTER (9) Back pain Code(s): M54.9 - DORSALGIA, UNSPECIFIED (10) Dehydration Code(s): E86.0 - DEHYDRATION (11) Diastolic dysfunction Code(s): I51.9 - HEART DISEASE, UNSPECIFIED (12) History of dyspnea Code(s): Z87.09 - PERSONAL HISTORY OF OTHER DISEASES OF THE RESPIRATORY SYSTEM (13) Leukocytosis Code(s): D72.829 - ELEVATED WHITE BLOOD CELL COUNT, UNSPECIFIED Qualifiers: Leukocytosis type: unspecified Qualified Code(s): D72.829 - Elevated white blood cell count, unspecified (14) Paroxysmal atrial fibrillation Code(s): I48.0 - PAROXYSMAL ATRIAL FIBRILLATION (15) Pericardial effusion Code(s): I31.3 - PERICARDIAL EFFUSION (NONINFLAMMATORY) (16) Pneumonia Code(s): J18.9 - PNEUMONIA, UNSPECIFIED ORGANISM Qualifiers: Pneumonia type: due to unspecified organism Laterality: left (17) Sepsis Code(s): A41.9 - SEPSIS, UNSPECIFIED ORGANISM (18) Sinus bradycardia Code(s): R00.1 - BRADYCARDIA, UNSPECIFIED (19) Chronic kidney disease Code(s): N18.9 - CHRONIC KIDNEY DISEASE, UNSPECIFIED Qualifiers: Chronic kidney disease stage: stage 2 (mild) Qualified Code(s): N18.2 - Chronic kidney disease, stage 2 (mild) (20) HTN (hypertension) Code(s): I10 - ESSENTIAL (PRIMARY) HYPERTENSION Qualifiers: Hypertension type: essential hypertension Qualified Code(s): I10 - Essential (primary) hypertension (21) Hypercholesterolemia Code(s): E78.00 - PURE HYPERCHOLESTEROLEMIA, UNSPECIFIED (22) Osteoarthritis Code(s): M19.90 - UNSPECIFIED OSTEOARTHRITIS, UNSPECIFIED SITE Qualifiers: Osteoarthritis location: knee Osteoarthritis type: unspecified Laterality : right Qualified Code(s): M17.11 - Unilateral primary osteoarthritis, right knee Assessment/Plan - Problems (1) Acute on chronic systolic (congestive) heart failure Assessment/Plan: On metoprolol, diltiazem (mild systolic dysfunction) and furosemide. Bilatertal pulmonary effusions remain.; SOB on mild exertion. Start ARB (Losartan 25 mg daily (systolic CHF). F/u BUn/Cr, electrolytes, daily weight, electrolytes. Code(s): I50.23 - ACUTE ON CHRONIC SYSTOLIC (CONGESTIVE) HEART FAILURE (2) Malignancy Assessment/Plan: r/o lung malignancy: ateletasis, pleural effusion, mediastinal stricutres left- sided. CT chest recommended to be repeated in 1-2 weeks. f/u with collections clerk. Code(s): C80.1 - MALIGNANT (PRIMARY) NEOPLASM, UNSPECIFIED (3) Elevated brain natriuretic peptide (BNP) level Code(s): R79.89 - OTHER SPECIFIED ABNORMAL FINDINGS OF BLOOD CHEMISTRY (4) Paroxysmal atrial fibrillation Assessment/Plan: Priods of rapid ventricular response, especially when moved or physical therapy is given. On metoprolol and diltiazem for HR control. On apixaban for anticoagulation. Code(s): I48.0 - PAROXYSMAL ATRIAL FIBRILLATION (5) Pericardial effusion Code(s): I31.3 - PERICARDIAL EFFUSION (NONINFLAMMATORY) (6) Pneumonia Assessment/Plan: Off antibiotics. Code(s): J18.9 - PNEUMONIA, UNSPECIFIED ORGANISM Qualifiers: Pneumonia type: due to unspecified organism Laterality: left (7) Chronic kidney disease Code(s): N18.9 - CHRONIC KIDNEY DISEASE, UNSPECIFIED Qualifiers: Chronic kidney disease stage: stage 2 (mild) Qualified Code(s): N18.2 - Chronic kidney disease, stage 2 (mild) (8) HTN (hypertension) Code(s): I10 - ESSENTIAL (PRIMARY) HYPERTENSION Qualifiers: Hypertension type: essential hypertension Qualified Code(s): I10 - Essential (primary) hypertension (9) Hypercholesterolemia Code(s): E78.00 - PURE HYPERCHOLESTEROLEMIA, UNSPECIFIED (10) Osteoarthritis Code(s): M19.90 - UNSPECIFIED OSTEOARTHRITIS, UNSPECIFIED SITE Qualifiers: Osteoarthritis location: knee Osteoarthritis type: unspecified Laterality : right Qualified Code(s): M17.11 - Unilateral primary osteoarthritis, right knee (11) Renal dysfunction Code(s): N28.9 - DISORDER OF KIDNEY AND URETER, UNSPECIFIED (12) Respiratory distress Code(s): R06.03 - ACUTE RESPIRATORY DISTRESS
[2018-08-22] MEDS: TIMOLOL 0.5% OPHTHALMIC SOL 5 ML BOTTLE OU SCH (12:00)
--- NOTE | 2018-08-22 12:30 | PN ---
Progress Note, Physician - Current Medication List Current Medications: Active Medications Acetaminophen (Tylenol -) 650 mg PO Q6H PRN PRN Reason: HEADACHE Last Admin: 08/19/18 15:08 Dose: 650 mg Albuterol Sulfate (Ventolin 0.083% Nebulizer Soln -) 1 amp NEB Q4H PRN PRN Reason: SHORT OF BREATH/WHEEZING Last Admin: 08/16/18 09:27 Dose: 1 amp Atorvastatin Calcium (Lipitor -) 10 mg PO HS [facility] Last Admin: 08/21/18 22:58 Dose: 10 mg Diltiazem HCl (Cardizem -) 90 mg PO BID [facility] Last Admin: 08/21/18 22:58 Dose: 90 mg Docusate Sodium (Colace -) 100 mg PO DAILY [facility] Last Admin: 08/22/18 09:51 Dose: 100 mg Furosemide (Lasix -) 40 mg PO DAILY [facility] Last Admin: 08/22/18 09:49 Dose: 40 mg Levalbuterol HCl (Xopenex) 0.63 mg IH RTID [facility] Last Admin: 08/22/18 08:17 Dose: 0.63 mg Losartan Potassium (Cozaar -) 25 mg PO DAILY [facility] Melatonin (Melatonin) 5 mg PO HS PRN PRN Reason: INSOMNIA Last Admin: 08/19/18 21:33 Dose: 5 mg Metoprolol Succinate (Toprol Xl -) 25 mg PO DAILY [facility] Last Admin: 08/22/18 09:51 Dose: 25 mg Ropinirole HCl (Requip -) 1 mg PO DAILY [facility] Last Admin: 08/22/18 09:50 Dose: 1 mg Timolol Maleate (Timoptic 0.5%) 1 drop OU BID [facility] Last Admin: 08/21/18 22:58 Dose: 1 drop - Objective Vital Signs: Vital Signs Temperature 98.2 F 08/22/18 10:00 Pulse Rate 104 H 08/22/18 10:00 Respiratory Rate 18 08/22/18 10:00 Blood Pressure 113/64 08/22/18 10:00 O2 Sat by Pulse Oximetry (%) 98 08/21/18 22:00 Labs: CBC, BMP 08/18/18 05:30 08/21/18 05:30 INR, PTT INR 1.15 (0.83-1.09) H 08/22/18 09:05 Problem List - Problems (1) Acute on chronic diastolic (congestive) heart failure Code(s): I50.33 - ACUTE ON CHRONIC DIASTOLIC (CONGESTIVE) HEART FAILURE (2) Acute on chronic systolic (congestive) heart failure Code(s): I50.23 - ACUTE ON CHRONIC SYSTOLIC (CONGESTIVE) HEART FAILURE (3) Elevated brain natriuretic peptide (BNP) level Code(s): R79.89 - OTHER SPECIFIED ABNORMAL FINDINGS OF BLOOD CHEMISTRY (4) Shortness of breath Code(s): R06.02 - SHORTNESS OF BREATH (5) HTN (hypertension) Code(s): I10 - ESSENTIAL (PRIMARY) HYPERTENSION Qualifiers: Hypertension type: essential hypertension Qualified Code(s): I10 - Essential (primary) hypertension (6) Hypercholesterolemia Code(s): E78.00 - PURE HYPERCHOLESTEROLEMIA, UNSPECIFIED (7) Osteoarthritis Code(s): M19.90 - UNSPECIFIED OSTEOARTHRITIS, UNSPECIFIED SITE Qualifiers: Osteoarthritis location: knee Osteoarthritis type: unspecified Laterality : right Qualified Code(s): M17.11 - Unilateral primary osteoarthritis, right knee (8) Acute respiratory failure with hypoxia and hypercapnia Code(s): J96.01 - ACUTE RESPIRATORY FAILURE WITH HYPOXIA; J96.02 - ACUTE RESPIRATORY FAILURE WITH HYPERCAPNIA (9) Pleural effusion Code(s): J90 - PLEURAL EFFUSION, NOT ELSEWHERE CLASSIFIED Assessment/Plan IMP ACUTE HYPOXEMIC/HYPERCAPNEIC RESPIRATORY FAILURE IMPROVING ACUTE ON CHRONIC CHF PULMONARY HTN PNEUMONIA AFIB H/O HTN HLD RESTLESS LEG SYNDROME PLAN INHALED BRONCHODILATORS LASIX INHALED BRONCHODILATORS O2 TO MAINTAIN O2 SAT >92% NIPPV NEEDED CHEST PT THORACENTESIS IN AM DR GODDARD Problem List - Problems (1) Acute on chronic diastolic (congestive) heart failure Code(s): I50.33 - ACUTE ON CHRONIC DIASTOLIC (CONGESTIVE) HEART FAILURE (2) Acute on chronic systolic (congestive) heart failure Code(s): I50.23 - ACUTE ON CHRONIC SYSTOLIC (CONGESTIVE) HEART FAILURE (3) Elevated brain natriuretic peptide (BNP) level Code(s): R79.89 - OTHER SPECIFIED ABNORMAL FINDINGS OF BLOOD CHEMISTRY (4) Shortness of breath Code(s): R06.02 - SHORTNESS OF BREATH (5) HTN (hypertension) Code(s): I10 - ESSENTIAL (PRIMARY) HYPERTENSION Qualifiers: Hypertension type: essential hypertension Qualified Code(s): I10 - Essential (primary) hypertension (6) Hypercholesterolemia Code(s): E78.00 - PURE HYPERCHOLESTEROLEMIA, UNSPECIFIED (7) Osteoarthritis Code(s): M19.90 - UNSPECIFIED OSTEOARTHRITIS, UNSPECIFIED SITE Qualifiers: Osteoarthritis location: knee Osteoarthritis type: unspecified Laterality : right Qualified Code(s): M17.11 - Unilateral primary osteoarthritis, right knee (8) Acute respiratory failure with hypoxia and hypercapnia Code(s): J96.01 - ACUTE RESPIRATORY FAILURE WITH HYPOXIA; J96.02 - ACUTE RESPIRATORY FAILURE WITH HYPERCAPNIA (9) Pleural effusion Code(s): J90 - PLEURAL EFFUSION, NOT ELSEWHERE CLASSIFIED
--- NOTE | 2018-08-22 17:07 | DS ---
Physical Exam: SUBJECTIVE: Patient seen and examined this morning at bedside. No new complaints. Denies fevers, chills, chest pain, SOB, nausea, vomiting, diarrhea. Feels her breathing has improved S/P Thoracentesis. OBJECTIVE: Vital Signs Period Temp Pulse Resp BP Sys/Kraus Pulse Ox Last 24 Hr 97.6 F-98.5 F 98-117 17-20 107-113/54-64 96-98 PHYSICAL EXAM GENERAL: A&Ox3, NAD HEAD: NCAT EYES: PERRL, EOMI ENT: Hard of hearing, oropharynx clear without exudates, moist mucous membranes NECK: supple, +JVD, Improving LUNGS: Decreased breath sounds at the bases, on 3L NC HEART: Regular rate and rhythm, normal S1 and S2 ABDOMEN: Soft, nontender, not distended, + bowel sounds, no guarding EXTREMITIES: 2+ pulses, 1+ pitting edema b/l improving NEUROLOGICAL: Cranial nerves II-XII intact. Normal speech SKIN: Warm, dry, no rashes or lesions noted LABS Laboratory Last Values WBC 8.5 K/mm3 (4.0-10.0) 08/18/18 05:30 RBC 3.53 M/mm3 (3.60-5.2) L 08/18/18 05:30 Hgb 9.6 GM/dL (10.7-15.3) L 08/18/18 05:30 Hct 31.1 % (32.4-45.2) L 08/18/18 05:30 MCV 88.0 fl (80-96) 08/18/18 05:30 MCH 27.1 pg (25.7-33.7) 08/18/18 05:30 MCHC 30.8 g/dl (32.0-36.0) L 08/18/18 05:30 RDW 19.6 % (11.6-15.6) H 08/18/18 05:30 Plt Count 248 K/MM3 (134-434) 08/18/18 05:30 MPV 7.5 fl (7.5-11.1) 08/18/18 05:30 Absolute Neuts (auto) 5.3 K/mm3 (1.5-8.0) 08/18/18 05:30 Neutrophils % 61.9 % (42.8-82.8) 08/18/18 05:30 Neutrophils % (Manual) 63.6 % (42.8-82.8) 08/18/18 05:30 Band Neutrophils % 0.0 % 08/18/18 05:30 Lymphocytes % 15.4 % (8-40) 08/18/18 05:30 Lymphocytes % (Manual) 7.1 % (8-40) L D 08/18/18 05:30 Monocytes % 20.2 % (3.8-10.2) H 08/18/18 05:30 Monocytes % (Manual) 17 % (3.8-10.2) H 08/18/18 05:30 Eosinophils % 1.7 % (0-4.5) 08/18/18 05:30 Eosinophils % (Manual) 2.0 % (0-4.5) 08/18/18 05:30 Basophils % 0.8 % (0-2.0) 08/18/18 05:30 Basophils % (Manual) 0.0 % (0-2.0) 08/18/18 05:30 Myelocytes % (Man) 1 % (0-2) D 08/18/18 05:30 Promyelocytes % (Man) 0 % (0-2) 08/18/18 05:30 Blast Cells % (Manual) 0 % (0-0) 08/18/18 05:30 Nucleated RBC % 0 % (0-0) 08/18/18 05:30 Metamyelocytes 2 % (0-2) D 08/18/18 05:30 Hypochromia 1+ 08/18/18 05:30 Platelet Estimate Normal 08/18/18 05:30 Polychromasia 1+ 08/18/18 05:30 Poikilocytosis 1+ 08/18/18 05:30 Anisocytosis 1+ 08/18/18 05:30 Microcytosis 1+ 08/18/18 05:30 Macrocytosis 0 08/18/18 05:30 Fragmented RBCs 1+ 08/15/18 06:10 PT with INR 13.60 SEC (9.7-13.0) H 08/22/18 09:05 INR 1.15 (0.83-1.09) H 08/22/18 09:05 PTT (Actin FS) 38.0 SECONDS (25.2-36.5) H 08/11/18 01:05 Puncture Site Right radial 08/16/18 09:19 ABG pH 7.34 (7.35-7.45) L 08/16/18 09:19 ABG pCO2 at Pt Temp 69.1 mmHg (35-45) H* 08/16/18 09:19 ABG pO2 at Pt Temp 120.0 mmHg (68-100) H 08/16/18 09:19 ABG HCO3 36.7 meq/L (22-26) H 08/16/18 09:19 ABG O2 Sat (Measured) 98.9 % (90-98.9) 08/16/18 09:19 ABG O2 Content 13.1 % vol (15-22) L 08/16/18 09:19 ABG Base Excess 9.6 meq/l (-2-2) H 08/16/18 09:19 Carlos Test Positive 08/16/18 09:19 VBG pH 7.40 (7.32-7.42) 08/11/18 01:05 POC VBG pCO2 44.5 mmHg (38-52) 08/11/18 01:05 POC VBG pO2 40.9 mmHg (28-48) 08/11/18 01:05 Mixed VBG HCO3 27.2 meq/L (19-25) H 08/11/18 01:05 O2 Delivery Device Nasal cannula 08/16/18 09:19 Oxygen Flow Rate 3l 08/16/18 09:19 Mechanical Rate No 08/13/18 13:05 PEEP 0.0 cmH2O 08/16/18 09:19 Sodium 142 mmol/L (136-145) 08/21/18 05:30 Potassium 3.9 mmol/L (3.5-5.1) 08/21/18 05:30 Chloride 97 mmol/L (98-107) L 08/21/18 05:30 Carbon Dioxide 43 mmol/L (21-32) H 08/21/18 05:30 Anion Gap 3 MMOL/L (8-16) L 08/21/18 05:30 BUN 29 mg/dL (7-18) H 08/21/18 05:30 Creatinine 1.2 mg/dL (0.55-1.3) 08/21/18 05:30 Creat Clearance w eGFR 42.30 (>60) 08/21/18 05:30 Random Glucose 90 mg/dL (74-106) 08/21/18 05:30 Lactic Acid 1.2 mmol/L (0.4-2.0) 08/11/18 08:30 Calcium 8.7 mg/dL (8.5-10.1) 08/21/18 05:30 Phosphorus 2.9 mg/dL (2.5-4.9) 08/21/18 05:30 Magnesium 2.3 mg/dL (1.8-2.4) 08/21/18 05:30 Total Bilirubin 0.6 mg/dL (0.2-1) 08/19/18 05:30 AST 28 U/L (15-37) 08/19/18 05:30 ALT 23 U/L (13-61) 08/19/18 05:30 Alkaline Phosphatase 62 U/L (45-117) 08/19/18 05:30 Creatine Kinase 104 IU/L (26-192) 08/11/18 08:30 Troponin I 0.03 ng/ml (0.00-0.05) 08/11/18 08:30 B-Natriuretic Peptide 9563.6 pg/ml (5-450) H 08/16/18 06:35 Total Protein 4.9 g/dl (6.4-8.2) L 08/19/18 05:30 Albumin 2.5 g/dl (3.4-5.0) L 08/19/18 05:30 TSH 3.72 uIU/ml (0.358-3.74) 08/11/18 08:30 Free T4 1.23 ng/dl (0.76-1.46) 08/11/18 08:30 Free T3 1.9 pg/ml (2.0-4.4) L 08/11/18 08:30 Urine Color Yellow 08/10/18 21:50 Urine Appearance Slcloudy 08/10/18 21:50 Urine pH 5.0 (5.0-8.0) D 08/10/18 21:50 Ur Specific [place] 1.017 (1.010-1.035) 08/10/18 21:50 Urine Protein 3+ (NEGATIVE) H D 08/10/18 21:50 Urine Glucose (UA) 1+ (NEGATIVE) H 08/10/18 21:50 Urine Ketones Trace (NEGATIVE) H 08/10/18 21:50 Urine Blood Negative (NEGATIVE) 08/10/18 21:50 Urine Nitrite Negative (NEGATIVE) 08/10/18 21:50 Urine Bilirubin Negative (<2.0 mg/dL) 08/10/18 21:50 Urine Urobilinogen Negative mg/dL (0.2-1.0) 08/10/18 21:50 Ur Leukocyte Esterase Negative (NEGATIVE) 08/10/18 21:50 Urine WBC (Auto) 3 /hpf (3-5) 08/10/18 21:50 Urine RBC (Auto) 2 /hpf (0-3) 08/10/18 21:50 Ur Epithelial Cells Rare /HPF (FEW) 08/10/18 21:50 Hyaline Casts 13 /lpf 08/10/18 21:50 Urine Mucus Rare 08/10/18 21:50 Pleural Fluid Source Right pleurl 08/22/18 14:00 Pleural Color Yellow 08/22/18 14:00 Pleural Appearance Hazy 08/22/18 14:00 Pleural WBC 223 /mm3 08/22/18 14:00 Pleural RBC 2,882 /mm3 08/22/18 14:00 Microbiology 08/10/18 20:00 Blood - Peripheral Venous Blood Culture - Final NO GROWTH AFTER 5 DAYS INCUBATION 08/10/18 20:50 Blood - Peripheral Venous Blood Culture - Final NO GROWTH AFTER 5 DAYS INCUBATION 08/10/18 21:50 Urine - Urine Clean Catch Urine Culture - Final Escherichia Coli Group D Strep Or Entero Coccus 08/11/18 10:41 Urine For Antigen Detection Legionella Antigen - Final 08/11/18 10:41 Urine For Antigen Detection Streptococcus pneumoniae Antigen (M - Final 08/11/18 03:51 Nasopharyngeal Swab Respiratory Syncytial Virus Ag - Final 08/11/18 03:51 Nasopharyngeal Swab Influenza Types A,B Antigen - Final 08/11/18 03:51 Nasopharyngeal Swab - Final IMAGING: -US Duplex 2 Legs: No DVT is identified involving either leg. Please see above. -EKG (08/10): ATRIAL FIBRILLATION WITH RAPID VENTRICULAR RESPONSE WITH PREMATURE VENTRICULAR OR ABERRANTLY CONDUCTED COMPLEXES, LEFT AXIS DEVIATION, QTc 482 -EKG (08/18): ATRIAL FIBRILLATION, LEFT AXIS DEVIATION, ANTERIOR INFARCT, VR 98 , QTc 431 -ECHO: LV systolic function is mildly reduced. Mild anterior wall hypokinesis. LA is moderately dilated, RA is mildly dilated. Mild MR, Moderate TR. Mild Pulmonic Valvular regurg, Small pericardial effusion. Pleural effusion present. -CXR (08/10): Imaging reveals a large heart, sclerotic knob, congestive changes and questionable left base infiltrate. Follow-up recommended -CXR (08/13): Increased opacification of the left hemithorax attributed to the pleural effusion, left lung atelectasis shift of mediastinal structures to the left side. Normal aeration of the lung right lung. No pneumothorax or large pleural effusion is seen. Clinically correlate for malignant process. -CXR (08/16): Since the prior study of 08/13/2018, the left pulmonary and pleural changes have diminished slightly. The remainder the study is unchanged. -CXR (08/18): No significant change -CXR (08/20): No definite interval change is seen as noted above. -CT Chest without contrast: Bibasal consolidation and calcification the left upper lobe compatible with pneumonia. Small to moderate left and small right pleural effusion. Close follow-up CT scan of the chest in one to 2 weeks is recommended to assess 40 clearing of airspace disease and to rule out any underlying pathology. Multiple gallstones are present. -Chest US: Bilateral pleural effusions. -Modified Barium Swallow: Continue puree diet at this time and nectar thick liquid at bedside. Trial of free water protocol of thin liquid between meals. Mouth care followed by small sips of water with chin tucked down. Trial of thin liquid with meals when patient is out of bed in a chair. Monitor tolerance. Continue Swallowing therapy at long term upon discharge HOSPITAL COURSE: Date of Admission:08/10/18 Date of Discharge: 08/22/18 88 y/o F with a PMHx of Anemia, HTN, HLD, DCHF, AF (on Eliquis), restless leg syndrome presented from home for acute hypoxia sats 88%, with progressively worsening SOB, and productive cough for the past week. She was found to be septic on admission and completed a 10 day course of Levaquin. Imaging and cultures were done (noted above). Cardiology and Pulmonology were consulted. Patients breathing initially improved with Lasix and PRN Bipap. A Chest Ultrasound found Bilateral pleural effusions and she underwent therapeutic thoracentesis (08/22). Patients breathing continued to improve. She had episodes of tachycardia and bradycardia. Her Cardizem dose was reduced and her Toprol XL dose uptitrated. Patient experienced some HTN for which Losartan was added, and her HTN improved. Patient was found to have urinary retention for which a mandujano catheter was place. Patient later failed her voiding trial and was recatheterized. Speech and Swallow was consulted and recommended a puree diet with nectar thick liquid. Her ABDOUL and Hypo/Hyper-Natremia improved. Patient was discharged home with strict instructions to follow up with cardiology, Urology and her PCP. Minutes to complete discharge: 40 Discharge Summary Reason For Visit: SOB/HYPOXIA/ELEV BRAIN NEUTROIURETIC PEP Current Active Problems Acute on chronic diastolic (congestive) heart failure (Acute) Acute on chronic systolic (congestive) heart failure (Acute) Acute respiratory failure with hypoxia and hypercapnia (Acute) Elevated brain natriuretic peptide (BNP) level (Acute) Hypoxia (Acute) Malignancy (Acute) Pleural effusion (Acute) Renal dysfunction (Acute) Respiratory distress (Acute) Shortness of breath (Acute) Condition: Improved - Instructions Diet, Activity, Other Instructions: You presented to the hospital with shortness of breath. You were continued to water pill (lasix) injection and completed a 10 day course of antibiotics (Levaquin). You were evaluated by speech/swallow therapist and advised dysphagia pureed diet with nectar thick liquids, Can trial with free water sips as tolerated through the day. You were found to have fluid on your lungs and a Thoracentesis was done on . Your breathing improved. You were seen by a L D Rn, Dr Zavala, during your stay. The following medications were added: 1. Metoprolol XL 25mg Daily 2. Losartan 25mg Daily 3. Lasix 40mg Daily The following Medications were changed: 1. Diltiazem dose is reduced to 90mg twice a day Speech and Swallow was consulted and recommended Puree diet with nectar thick liquid , can do free water sips as tolerated through the day and follow up with speech/swallow therapist outpatient. Please continue to maintain your mandujano catheter and follow up with a urologist in 1 week to discuss mandujano removal and further management. Please have a follow up Chest CT scan in one to two weeks. Please follow up with Dr. Willoughby in 1-2 weeks to schedule. Your lung fluid results are pending currently. please have Dr. Willoughby follow up on results. Please follow up with your Primary care physician in one week. Continue all your other medications as prescribed. FOLLOW UP TEST BMP (basic metabolic panel) in 1 week at the facility. (to monitor your sodium levels and kidney function) Daily weights and notify doctor if weight gain > 3 lbs in 2 days or decreased urination noted. Please return to the ER if you have any signs or symptoms of chest pain, shortness of breath, uncontrollable fever, chills, nausea, vomiting, numbness, tingling, or weakness in any part of your body, changes in vision, or slurred speech. Please return to the ER if symptoms persist, worsen, or new symptoms arise. Referrals: David Willoughby MD [Staff Physician] - Mami Ku MD [Primary Care Provider] - Patrick Zavala MD [Staff Physician] - Disposition: SNF FACILITY - Home Medications Comprehensive Discharge Medication List: Ambulatory Orders Simvastatin 20 mg PO DAILY 04/10/17 Timolol 0.5% [Timoptic 0.5%] 1 drop OU BID 04/10/17 Apixaban [Eliquis] 2.5 mg PO BID #28 tablet 04/14/17 Allopurinol 100 mg PO DAILY 08/10/18 Albuterol 0.083% Nebulizer Pauline [Ventolin 0.083% Nebulizer Soln -] 1 amp NEB Q4H PRN #1 amp 08/22/18 Diltiazem [Cardizem -] 90 mg PO BID #90 tablet 08/22/18 Docusate Sodium [Colace -] 100 mg PO DAILY #30 capsule 08/22/18 Furosemide [Lasix -] 40 mg PO DAILY #60 tablet 08/22/18 Losartan Potassium [Cozaar -] 25 mg PO DAILY #30 tablet 08/22/18 Melatonin 5 mg PO HS PRN #30 tab 08/22/18 Metoprolol Succinate [Toprol XL -] 25 mg PO DAILY #30 tab.sr.24h 08/22/18 Ropinirole HCl [Requip -] 1 mg PO DAILY #30 tablet 08/22/18 This patient is new to me today: No Emergency Visit: Yes ED Registration Date: 08/10/18 Care time: The patient presented to the Emergency Department on the above date and was hospitalized for further evaluation of their emergent condition. Critical Care patient: No - Discharge Referral Referred to [facility] Med P.[facility].: No
[2018-08-22 17:28] LABS: PLEURAL FLUID APPEARANCE CLEAR; PLEURAL FLUID COLOR STRAW
[2018-08-22 17:35] LABS: PLEURAL FLUID APPEARANCE HAZY; PLEURAL FLUID COLOR YELLOW
[2018-08-22 17:36] LABS: PLEURAL FLUID RBC 667 /mm3
[2018-08-22 19:06] VITALS: BP 108/57; PULSE 106; TEMP 97.5
[2018-08-23 11:26] LABS: PLEURAL FLUID LYMPHOCYTES 55 %; PLEURAL FLUID MACROPHAGES 34 %; PLEURAL FLUID MONOCYTE 10 %; PLEURAL FLUID NEUTROPHIL 1 %
[2018-08-23 11:27] LABS: PLEURAL FLUID LYMPHOCYTES 66 %; PLEURAL FLUID MACROPHAGES 13 %; PLEURAL FLUID MESOTHELIAL 2 %; PLEURAL FLUID MONOCYTE 12 %; PLEURAL FLUID NEUTROPHIL 7 %
--- NOTE | 2018-08-23 13:31 | PATH ---
Cytology Non-Gynecological Report Patient Name: EZEQUIEL MENDEZ Med. Rec. #: [id number] /Age/Gender: 1930 (Age: 88) / F Account: [id number] Location: 4 TELEMETRY U Taken: 08/22/2018 Received: 08/22/2018 Reported: 08/23/2018 Physicians: PHYSICIAN EMERGENCY DEPT Specimen(s) Received A: RIGHT PLEURAL FLUID RECEIVED IN 50% ALCOHOL B: RIGHT PLEURAL FLUID RECEIVED FRESH Clinical History Pleural effusion Final Diagnosis PLEURAL FLUID, THORACENTESIS: SATISFACTORY FOR EVALUATION NO MALIGNANT CELLS IDENTIFIED. MESOTHELIAL CELLS, MACROPHAGES, AND SMALL LYMPHOCYTES PRESENT. Electronically Signed Xiomara Pink M.D. Gross Description A. Approximately 50cc of yellow fluid received fixed in 50% alcohol. One slide and one cellblock prepared. B. Approximately 1000cc of yellow fluid received fresh. One slide and one cellblock prepared.
--- NOTE | 2018-08-23 13:55 | PATH ---
Cytology Non-Gynecological Report Patient Name: EZEQUIEL MENDEZ [facility]. Rec. #: [id number] /Age/Gender: 1930 (Age: 88) / F Account: [id number] Location: 4 W TELEMETRY U Taken: 08/22/2018 Received: 08/22/2018 Reported: 08/23/2018 Physicians: Sara Hollis M.D. Specimen(s) Received A: LEFT PLEURAL FLUID RECEIVED IN 50% ALCOHOL B: LEFT PLEURAL FLUID RECEIVED FRESH Clinical History Pleural effusion Final Diagnosis A & B. PLEURAL FLUID, LEFT, THORACENTESIS: SATISFACTORY FOR EVALUATION NO MALIGNANT CELLS IDENTIFIED. MESOTHELIAL CELLS, MACROPHAGES AND FEW SMALL LYMPHOCYTES PRESENT. Electronically Signed Caryn Finnegan M.D. Gross Description A. Approximately 50 cc of yellow fluid received fixed in 50% alcohol. One cytofunnel prepared and Pap stained. One cellblock prepared. B. Approximately 1000 cc of yellow fluid received fresh. One cytofunnel prepared and Pap stained. One cellblock prepared.
[2018-08-26 13:58] LABS: TOTAL PROTEIN,PLEURAL FLUID 1.5
[2018-08-26 13:59] LABS: GLUCOSE,PLEURAL FLUID 101
[2018-08-26 14:00] LABS: GLUCOSE,PLEURAL FLUID 104; TOTAL PROTEIN,PLEURAL FLUID 1.6
== END 2018-08-22 20:14 | DRG 871 ==
LOC: JER 16:59 → JERBED 22:32 → UNDOADMIN 23:48 → JERBED 23:48 → J4W 08-11 05:48
PROVIDERS: ADMIT Internal Medicine; ATTEND Hospitalist
PROC: 0T9B70Z Drainage of Bladder with Drainage Device, Via Natural or Artificial Opening (ICD-10-PCS; 2018-08-16)
PROC: 5A09357 Assistance with Respiratory Ventilation, Less than 24 Consecutive Hours, Continuous Positive Airway Pressure (ICD-10-PCS; 2018-08-16)
PROC: 0W9B3ZX Drainage of Left Pleural Cavity, Percutaneous Approach, Diagnostic (ICD-10-PCS; principal; 2018-08-22)
DX: A41.9 Sepsis, unspecified organism (principal); J96.01 Acute respiratory failure with hypoxia; G92 Toxic encephalopathy; J18.9 Pneumonia, unspecified organism; J96.02 Acute respiratory failure with hypercapnia; I50.43 Acute on chronic combined systolic (congestive) and diastolic (congestive) heart failure; E87.1 Hypo-osmolality and hyponatremia; N39.0 Urinary tract infection, site not specified; I13.0 Hypertensive heart and chronic kidney disease with heart failure and stage 1 through stage 4 chronic kidney disease, or unspecified chronic kidney disease; J90 Pleural effusion, not elsewhere classified; E87.3 Alkalosis; N17.9 Acute kidney failure, unspecified; I48.91 Unspecified atrial fibrillation; N18.3 Chronic kidney disease, stage 3 (moderate); R33.9 Retention of urine, unspecified; Z79.01 Long term (current) use of anticoagulants; G25.81 Restless legs syndrome; D50.9 Iron deficiency anemia, unspecified; R13.10 Dysphagia, unspecified; Z90.710 Acquired absence of both cervix and uterus; J06.9 Acute upper respiratory infection, unspecified; Z88.0 Allergy status to penicillin; Z66 Do not resuscitate; I27.20 Pulmonary hypertension, unspecified; I49.5 Sick sinus syndrome; M17.11 Unilateral primary osteoarthritis, right knee; I36.1 Nonrheumatic tricuspid (valve) insufficiency
CPT/HCPCS: 36415; 36600; 71045-TC-FY; 71250-TC; 74230-TC-FY; 76604-TC; 76942; 80048; 80053; 81003; 81015; 82042; 82150; 82550; 82803; 82945; 83605; 83615; 83735; 83880; 84100; 84157; 84439; 84443; 84478; 84481; 84484; 85025; 85610; 85730; 87040; 87070; 87075; 87086; 87102; 87116; 87186; 87205; 87206; 87210; 87420; 87804; 87899; 88108; 88305-TC; 89051; 92611-GN; 93005; 93010; 93306-TC; 93970-TC; 94640; 94660; 94761; 97116-GP; 97161-GP; 99285-25; J0131

== ENCOUNTER 2018-10-03 10:54 | Inpatient (IN) | payer OTHER, BC ==
--- NOTE | 2018-10-03 11:16 | PDOC ---
History of Present Illness - General Chief Complaint: Weakness Stated Complaint: HYPOTENSIVE Time Seen by Provider: 10/03/18 11:15 History Source: Patient, Family Exam Limitations: Dementia - History of Present Illness Initial Comments: 10/03/18 17:01 Patient is a 88-year-old female past medical history of A. fib on anticoagulation (Eliquis), anemia, CHF, dysphagia, hypertension, hyperlipidemia , dementia who presents to the emergency department today for weakness. Her son states that she has not been acting like herself since Monday and that she has felt more weak. He noticed at the longterm her pulse was going up into the 130s since Monday. Patient denies chest pain, shortness of breath or difficulty breathing. She states that she feels fine and wants to go home. Triage vital signs notable for pulse of 147, blood pressure of 105/71, pulse ox of 96. Rectal temperature is 90.7 Patient is DNR/DNI Past History - Travel Traveled outside of the country in the last 30 days: No Close contact w/someone who was outside of country & ill: No - Past Medical History Allergies/Adverse Reactions: Allergies Allergy/AdvReac Type Severity Reaction Status Date / Time amoxicillin Allergy Verified 10/03/18 11:11 Home Medications: Ambulatory Orders Simvastatin 20 mg PO HS 04/10/17 Timolol 0.5% [Timoptic 0.5%] 1 drop OU BID 04/10/17 Apixaban [Eliquis] 2.5 mg PO BID #28 tablet 04/14/17 Diltiazem [Cardizem -] 90 mg PO BID #90 tablet 08/22/18 Docusate Sodium [Colace -] 100 mg PO DAILY #30 capsule 08/22/18 Furosemide [Lasix -] 40 mg PO DAILY #60 tablet 08/22/18 Losartan Potassium [Cozaar -] 25 mg PO DAILY #30 tablet 08/22/18 Metoprolol Succinate [Toprol XL -] 25 mg PO DAILY #30 tab.sr.24h 08/22/18 Ropinirole HCl [Requip -] 1 mg PO DAILY #30 tablet 08/22/18 Acetaminophen [Extra Strength Non-Aspirin] 500 mg PO Q8H PRN 10/03/18 Allopurinol [Zyloprim -] 100 mg PO DAILY 10/03/18 Bethanechol Chloride [Urecholine -] 25 mg PO QID 10/03/18 Collagenase Clostridium Hist. [Santyl] 1 applic TP DAILY 10/03/18 Docusate Sodium [Colace] 200 mg PO HS 10/03/18 Lactobacillus Acidophilus [Bacid -] 1 each PO 10/03/18 Sennosides [Senna] 2 tab PO HS 10/03/18 Anemia: Yes Asthma: No Cancer: No Cardiac Disorders: Yes (ATRIAL FIBRILLATION) CVA: No COPD: No CHF: Yes Dementia: No Diabetes: No GI Disorders: Yes (DYSPHAGIA) Disorders: No HTN: Yes Hypercholesterolemia: Yes Liver Disease: No Seizures: No Thyroid Disease: No Other medical history: weakness, sob, ostoarthritis. - Surgical History Abdominal Surgery: No Appendectomy: No Cardiac Surgery: No Cholecystectomy: No Lung Surgery: No Orthopedic Surgery: No - Suicide/Smoking/Psychosocial Hx Smoking History: Unknown if ever smoked Have you smoked in the past 12 months: No Number of Cigarettes Smoked Daily: 0 Information on smoking cessation initiated: No Hx Alcohol Use: No Drug/Substance Use Hx: No Substance Use Type: None Hx Substance Use Treatment: No Review of Systems - Review of Systems Able to Perform ROS?: Yes Comments:: 10/03/18 17:02 CONSTITUTIONAL: Present: weakness Absent: fever, chills, diaphoresis, malaise, loss of appetite HEENT: Absent: rhinorrhea, nasal congestion, throat pain, throat swelling, difficulty swallowing, mouth swelling, ear pain, eye pain, visual Changes CARDIOVASCULAR: Absent: chest pain, loss of consciousness, palpitations, irregular heart rate, peripheral edema RESPIRATORY: Absent: cough, shortness of breath, dyspnea with exertion, orthopnea, wheezing, stridor, hemoptysis GASTROINTESTINAL: Absent: abdominal pain, abdominal distension, nausea, vomiting, diarrhea, constipation, melena, hematochezia GENITOURINARY: Absent: dysuria, frequency, urgency, hesitancy, hematuria, flank pain, genital pain MUSCULOSKELETAL: Absent: myalgia, arthralgia, joint swelling SKIN: Absent: rash, itching, pallor HEMATOLOGIC/IMMUNOLOGIC: Absent: easy bleeding, easy bruising, lymphadenopathy, frequent infections ENDOCRINE: Absent: unexplained weight gain, unexplained weight loss, heat intolerance, cold intolerance NEUROLOGIC: Absent: headache, focal weakness or paresthesias, dizziness, unsteady gait, seizure, mental status changes, bladder or bowel incontinence PSYCHIATRIC: Absent: anxiety, depression, suicidal or homicidal ideation, hallucinations. Is the patient limited Turkish proficient: No *Physical Exam - Vital Signs Last Vital Signs Temp Pulse Resp BP Pulse Ox 97.0 F L 147 H 16 105/71 96 10/03/18 10:55 10/03/18 10:55 10/03/18 10:55 10/03/18 10:55 10/03/18 10:55 - Physical Exam Comments: 10/03/18 17:02 GENERAL: Well developed, well nourished. Awake and alert. No acute distress. Laying comfortably in bed, breathing without accessory muscle use. HEENT: Normocephalic, atraumatic. PERRLA, EOMI. No conjunctival pallor. Sclera are non- icteric. Moist mucous membranes. Oropharynx is clear. NECK: Supple. Full ROM. No JVD. Carotid pulses 2+ and symmetric, without bruits. No thyromegaly. No lymphadenopathy. CARDIOVASCULAR: Tachycardic, regular rhythm. No murmurs, rubs, or gallops appreciated. Distal pulses are 2+ and symmetric. PULMONARY: No evidence of respiratory distress. Lungs clear to auscultation bilaterally. No wheezing, rales or rhonchi. ABDOMINAL: Soft. Non-tender. Non-distended. No rebound or guarding. No organomegaly. Normoactive bowel sounds. MUSCULOSKELETAL Normal range of motion at all joints. No bony deformities or tenderness. No CVA tenderness. EXTREMITIES: No cyanosis. No clubbing. No edema. No calf tenderness. SKIN: Warm and dry. Normal capillary refill. No rashes. No jaundice. NEUROLOGICAL: Alert, awake, appropriate. Cranial nerves 2-12 intact. No deficits to light touch and temperature in face, upper extremities and lower extremities. No motor deficits in the in face, upper extremities and lower extremities. Normoreflexic in the upper and lower extremities. Normal speech. Toes are down- going bilaterally. Gait is normal without ataxia. PSYCHIATRIC: Cooperative. Good eye contact. Appropriate mood and affect. Moderate Sedation - Procedure Monitoring Vital Signs: Procedure Monitoring Vital Signs Temperature 97.0 F L 10/03/18 10:55 Pulse Rate 147 H 10/03/18 10:55 Respiratory Rate 16 10/03/18 10:55 Blood Pressure 105/71 10/03/18 10:55 O2 Sat by Pulse Oximetry (%) 96 10/03/18 10:55 ED Treatment Course - LABORATORY CBC & Chemistry Diagram: 10/03/18 11:15 10/03/18 11:15 Medical Decision Making - Critical Care Time Total Critical Care Time (minutes): 60 Critical Care Statement: The care of this patient involved high complexity decision making to prevent further life threatening deterioration of the patient 's condition and/or to evaluate & treat vital organ system(s) failure or risk of failure. - Medical Decision Making 10/03/18 17:09 Patient is a 88-year-old female past medical history of A. fib on anticoagulation (Eliquis), anemia, CHF, dysphagia, hypertension, hyperlipidemia , dementia, and who was recently treated for a UTI, presents to the emergency department today for weakness. -Initial presentation with hypotension and tachycardia. Sepsis order set ordered -Exam notable for regular but tachycardic rhythm. Lungs CTAB -EKG upon presentation shows a flutter with a rate of 144, left axis deviation, QTc 498, no acute st-t wave changes -Rectal temp 97F -Pt given two doses of 5mg IV metoprolol and one dose 25mg metoprolol PO with no break in her HR -Repeat BP was 108/60 -Pt was then given one dose of cardizem 10mg IV; rate was initially noted to break to 120, but then returned into the 140's -Second dose of cardizem was held as pt BP was soft. -No leukocytosis or shift. Troponin is negative -Cr elevated from 1.2 -->1.8 ABDOUL possibly d/t clinical dehydration -Urine is negative for UTI -CXR shows L lower lobe atelectisis vs pna. Pt covered with vancomycin and ceftriaxone. -Given that patient HR would not break despite treatment, Dr. Lozoya was paged 10/03/18 17:22 -Dr. Lozoya to bedside. Recommends cardizem drip at this time and ICU admission -[facility] paged. Consulted with SHER Esparza and Dr. Ramos from ICU. Pt accepted to ICU. *DC/Admit/Observation/Transfer Diagnosis at time of Disposition: Atrial flutter with rapid ventricular response, Dehydration, Weakness [id number] kidney injury Qualifiers: Acute renal failure type: unspecified Chronic kidney disease stage: unspecified stage Qualified Code(s): N17.9 - Acute kidney failure, unspecified - Discharge Dispostion Condition at time of disposition: Guarded Decision to Admit order: Yes - Referrals Referrals: Mami Ku MD [Primary Care Provider] - - Patient Instructions - Post Discharge Activity
[2018-10-03] MEDS ORDERED: SODIUM CHLORIDE 1,000 ML IV STA ×3 (11:17→18:16)
[2018-10-03 11:34] LABS: BASO % 0.8 % (0-2.0); EOS % 0.9 % (0-4.5); HEMATOCRIT 29.8 % (32.4-45.2); HEMOGLOBIN 10.3 GM/dL (10.7-15.3); LYMPH % 23.5 % (8-40); MCH 29.3 pg (25.7-33.7); MCHC 34.4 g/dl (32.0-36.0); MEAN CELL VOLUME 85.1 fl (80-96); MEAN PLT VOLUME 8.5 fl (7.5-11.1); MONO % 12.1 % (3.8-10.2); NEUT % 62.7 % (42.8-82.8); PLATELET COUNT 395 K/MM3 (134-434); RDW 18.1 % (11.6-15.6); WHITE BLOOD COUNT 7.7 K/mm3 (4.0-10.0)
[2018-10-03 11:38] LABS: INR 1.71 (0.83-1.09); PROTHROMBIN TIME (PATIENT) 20.3 SEC (9.7-13.0)
[2018-10-03 11:41] LABS: ACTIVATED PTT 36.5 SECONDS (25.2-36.5)
[2018-10-03] MEDS ORDERED: METOPROLOL TARTRATE 5 MG/5 ML VIAL IVPUSH ONE ×2 (11:47→12:53)
[2018-10-03 12:02] LABS: VENOUS PH 7.4 (7.32-7.42)
[2018-10-03 12:03] LABS: VENOUS PC02 50.2 mmHg (38-52); VENOUS PO2 34.8 mmHg (28-48)
[2018-10-03] MEDS ORDERED: METOPROLOL TARTRATE 5 MG/5 ML VIAL ONE ×2 (12:03→13:10)
[2018-10-03 12:10] LABS: ALBUMIN 3.1 g/dl (3.4-5.0); ALK PHOS 103 U/L (45-117); ANION GAP 8 MMOL/L (8-16); BILIRUBIN,TOTAL 0.6 mg/dL (0.2-1); BLOOD UREA NITROGEN 27 mg/dL (7-18); CALCIUM 8.7 mg/dL (8.5-10.1); CHLORIDE 103 mmol/L (98-107); CO2 29 mmol/L (21-32); CREATININE 1.7 mg/dL (0.55-1.3); GLUCOSE,RANDOM 118 mg/dL (74-106); POTASSIUM 3.8 mmol/L (3.5-5.1); SGOT/AST 26 U/L (15-37); SGPT/ALT 22 U/L (13-61); SODIUM 141 mmol/L (136-145)
[2018-10-03] MEDS ORDERED: metoPROLOL SUCCINATE 25 MG TAB.SR.24H (FP) PO ONE (12:53)
[2018-10-03 13:09] LABS: URINE APPEARANCE CLEAR; URINE BILIRUBIN NEGATIVE (<2.0 mg/dL); URINE COLOR YELLOW; URINE GLUCOSE (UA) NEGATIVE (NEGATIVE); URINE KETONE NEGATIVE (NEGATIVE); URINE LEUK ESTERASE NEGATIVE (NEGATIVE); URINE NITRITE NEGATIVE (NEGATIVE); URINE PROTEIN 1+ (NEGATIVE); URINE UROBILINOGEN NEGATIVE mg/dL (0.2-1.0)
[2018-10-03 13:14] LABS: EPI CELLS RARE /HPF (FEW); URINE HYALINE CAST 15 /lpf; URINE MUCUS RARE
[2018-10-03] MEDS ORDERED: dilTIAZem HCL 50 MG/10 ML - 10 ML VIAL IVPUSH ONE ×3 (14:29→16:15)
[2018-10-03] MEDS ORDERED: dilTIAZem HCL 125 MG/25 ML - 25 ML VIAL ONE ×2 (15:35→17:23)
--- NOTE | 2018-10-03 15:46 | EKG ---
Test Reason : Blood Pressure : / mmHG Vent. Rate : 146 BPM Atrial Rate : 292 BPM P-R Int : 000 ms QRS Dur : 114 ms QT Int : 320 ms P-R-T Axes : 249 -54 -87 degrees QTc Int : 498 ms ATRIAL FLUTTER WITH 2:1 A-V CONDUCTION LEFT AXIS DEVIATION PULMONARY DISEASE PATTERN SEPTAL INFARCT (CITED ON OR BEFORE 18-AUG-2018) ABNORMAL ECG WHEN COMPARED WITH ECG OF 18-AUG-2018 09:44, SIGNIFICANT CHANGES HAVE OCCURRED Confirmed by NURYS TURNER, CANDELARIA ([id number]) on 10/03/2018 3:46:35 PM Referred By: Confirmed By:CANDELARIA NUNO MD
[2018-10-03] MEDS ORDERED: dilTIAZem HCL 30 MG TABLET (FP) PO ONE (16:13)
[2018-10-03] MEDS ORDERED: VANCOMYCIN 1,000 MG in DEXTROSE 5%-WATER - 250 ML IVPB ONE (17:18)
[2018-10-03] MEDS ORDERED: CEFTRIAXONE 1 MG in DEXTROSE 5%-WATER - 50 ML IVPB ONE (17:19)
--- NOTE | 2018-10-03 17:19 | CON.CARD ---
Consult Consult Specialty:: Cardiology - History of Present Illness History of Present Illness: Patient is a 88-year-old female past medical history of A. fib on anticoagulation (Eliquis), anemia, CHF, dysphagia, hypertension, hyperlipidemia , dementia who presents to the emergency department today for weakness. Her son states that she has not been acting like herself since Monday and that she has felt more weak. He noticed at the long-term her pulse was going up into the 130s since Monday. Patient denies chest pain, shortness of breath or difficulty breathing. She states that she feels fine and wants to go home. Triage vital signs notable for pulse of 147, blood pressure of 105/71, pulse ox of 96. Rectal temperature is 90.7 Patient is DNR/DNI PMH HTN paroxysmal atrial fibrillation diastolic CHF, with moderate-severe pulmonary HTN (ECHO 12/2017) hyperlipidemia glaucoma gout anxiety chronic right knee pain - History Source History Provided By: Patient, Family Member - Past Medical History Cardio/Vascular: Yes: AFIB (New onset), CHF (diastolic CHF per records), HTN, Hyperlipdemia Musculoskeletal: Yes: Osteoarthritis Additional Medical History: Glaucoma - Past Surgical History Past Surgical History: Yes: Hysterectomy - Alcohol/Substance Use Hx Alcohol Use: No History of Substance Use: reports: None - Smoking History Smoking history: Unknown if ever smoked Have you smoked in the past 12 months: No Aproximately how many cigarettes per day: 0 Home Medications - Allergies Allergies/Adverse Reactions: Allergies Allergy/AdvReac Type Severity Reaction Status Date / Time amoxicillin Allergy Verified 10/03/18 11:11 - Home Medications Home Medications: Ambulatory Orders Simvastatin 20 mg PO HS 04/10/17 Timolol 0.5% [Timoptic 0.5%] 1 drop OU BID 04/10/17 Apixaban [Eliquis] 2.5 mg PO BID #28 tablet 04/14/17 Diltiazem [Cardizem -] 90 mg PO BID #90 tablet 08/22/18 Docusate Sodium [Colace -] 100 mg PO DAILY #30 capsule 08/22/18 Furosemide [Lasix -] 40 mg PO DAILY #60 tablet 08/22/18 Losartan Potassium [Cozaar -] 25 mg PO DAILY #30 tablet 08/22/18 Metoprolol Succinate [Toprol XL -] 25 mg PO DAILY #30 tab.sr.24h 08/22/18 Ropinirole HCl [Requip -] 1 mg PO DAILY #30 tablet 08/22/18 Acetaminophen [Extra Strength Non-Aspirin] 500 mg PO Q8H PRN 10/03/18 Allopurinol [Zyloprim -] 100 mg PO DAILY 10/03/18 Bethanechol Chloride [Urecholine -] 25 mg PO QID 10/03/18 Collagenase Clostridium Hist. [Santyl] 1 applic TP DAILY 10/03/18 Docusate Sodium [Colace] 200 mg PO HS 10/03/18 Lactobacillus Acidophilus [Bacid -] 1 each PO 10/03/18 Sennosides [Senna] 2 tab PO HS 10/03/18 Review of Systems - Review of Systems Constitutional: reports: Malaise, Weakness Eyes: reports: No Symptoms HENT: reports: No Symptoms Neck: reports: No Symptoms Cardiovascular: reports: No Symptoms Respiratory: reports: No Symptoms Gastrointestinal: reports: No Symptoms Genitourinary: reports: No Symptoms Breasts: reports: No Symptoms Reported Musculoskeletal: reports: No Symptoms Integumentary: reports: No Symptoms Neurological: reports: No Symptoms Endocrine: reports: No Symptoms Hematology/Lymphatic: reports: No Symptoms Psychiatric: reports: No Symptoms Vital Signs: Vital Signs Temperature 97.8 F 10/03/18 11:16 Pulse Rate 143 H 10/03/18 13:15 Respiratory Rate 23 H 10/03/18 13:15 Blood Pressure 105/75 10/03/18 13:15 O2 Sat by Pulse Oximetry (%) 100 10/03/18 13:15 Constitutional: Yes: Well Nourished, No Distress, Calm Eyes: Yes: WNL, Conjunctiva Clear, EOM Intact HENT: Yes: WNL, Atraumatic, Normocephalic Neck: Yes: WNL, Supple, Trachea Midline Respiratory: Yes: WNL, Regular, CTA Bilaterally Gastrointestinal: Yes: WNL, Normal Bowel Sounds Renal/: Yes: WNL Cardiovascular: Yes: Tachycardia, Pulse Irregular Heart Sounds: Yes: S1, S2 Musculoskeletal: Yes: WNL Extremities: Yes: WNL Integumentary: Yes: WNL Neurological: Yes: WNL, Alert, Oriented ...Motor Strength: WNL Psychiatric: Yes: WNL, Alert, Oriented - Other Data Labs, Other Data: CBC, BMP 10/03/18 11:15 10/03/18 11:15 INR, PTT INR 1.71 (0.83-1.09) H 10/03/18 11:15 Troponin, BNP 10/03/18 11:15 Troponin I < 0.02 Troponin, BNP 10/03/18 11:15 Troponin I < 0.02 Laboratory Tests 10/03/18 10/03/18 10/03/18 11:15 11:15 11:15 WBC 7.7 RBC 3.50 L Hgb 10.3 L Hct 29.8 L MCV 85.1 MCH 29.3 MCHC 34.4 RDW 18.1 H Plt Count 395 D MPV 8.5 D Absolute Neuts (auto) 4.8 Neutrophils % 62.7 Lymphocytes % 23.5 D Monocytes % 12.1 H Eosinophils % 0.9 Basophils % 0.8 Nucleated RBC % 0 PT with INR 20.30 H INR 1.71 H PTT (Actin FS) 36.5 VBG pH POC VBG pCO2 POC VBG pO2 Mixed VBG HCO3 Sodium 141 Potassium 3.8 Chloride 103 Carbon Dioxide 29 Anion Gap 8 BUN 27 H Creatinine 1.7 H Creat Clearance w eGFR 28.30 Random Glucose 118 H Lactic Acid Calcium 8.7 Total Bilirubin 0.6 AST 26 ALT 22 Alkaline Phosphatase 103 Troponin I < 0.02 Total Protein 6.0 L Albumin 3.1 L Urine Color Urine Appearance Urine pH Ur Specific Downing Urine Protein Urine Glucose (UA) Urine Ketones Urine Blood Urine Nitrite Urine Bilirubin Urine Urobilinogen Ur Leukocyte Esterase Urine WBC (Auto) Urine RBC (Auto) Ur Epithelial Cells Hyaline Casts Urine Mucus 10/03/18 10/03/18 10/03/18 11:16 11:40 12:19 WBC RBC Hgb Hct MCV MCH MCHC RDW Plt Count MPV Absolute Neuts (auto) Neutrophils % Lymphocytes % Monocytes % Eosinophils % Basophils % Nucleated RBC % PT with INR INR PTT (Actin FS) VBG pH 7.40 POC VBG pCO2 50.2 POC VBG pO2 34.8 Mixed VBG HCO3 30.7 H Sodium Potassium Chloride Carbon Dioxide Anion Gap BUN Creatinine Creat Clearance w eGFR Random Glucose Lactic Acid 1.4 Calcium Total Bilirubin AST ALT Alkaline Phosphatase Troponin I Total Protein Albumin Urine Color Yellow Urine Appearance Clear Urine pH 5.0 Ur Specific Downing 1.014 Urine Protein 1+ H D Urine Glucose (UA) Negative Urine Ketones Negative Urine Blood Negative Urine Nitrite Negative Urine Bilirubin Negative Urine Urobilinogen Negative Ur Leukocyte Esterase Negative Urine WBC (Auto) 1 Urine RBC (Auto) <1 Ur Epithelial Cells Rare Hyaline Casts 15 Urine Mucus Rare Imaging - Results Chest X-ray: Image Reviewed (atelectasis) EKG: Image Reviewed (af rvr) Problem List - Problems (1) Acute on chronic diastolic (congestive) heart failure Code(s): I50.33 - ACUTE ON CHRONIC DIASTOLIC (CONGESTIVE) HEART FAILURE (2) Acute on chronic systolic (congestive) heart failure Code(s): I50.23 - ACUTE ON CHRONIC SYSTOLIC (CONGESTIVE) HEART FAILURE (3) Acute respiratory failure with hypoxia and hypercapnia Code(s): J96.01 - ACUTE RESPIRATORY FAILURE WITH HYPOXIA; J96.02 - ACUTE RESPIRATORY FAILURE WITH HYPERCAPNIA (4) [id number]-tnvnsoq kidney injury Code(s): N17.9 - ACUTE KIDNEY FAILURE, UNSPECIFIED; N18.9 - CHRONIC KIDNEY DISEASE, UNSPECIFIED Qualifiers: Acute renal failure type: unspecified (5) Allergic reaction Code(s): T78.40XA - ALLERGY, UNSPECIFIED, INITIAL ENCOUNTER Qualifiers: Encounter type: initial encounter Qualified Code(s): T78.40XA - Allergy, unspecified, initial encounter (6) Atrial fibrillation with RVR Code(s): I48.91 - UNSPECIFIED ATRIAL FIBRILLATION (7) Atrial flutter with rapid ventricular response Code(s): I48.92 - UNSPECIFIED ATRIAL FLUTTER (8) Back pain Code(s): M54.9 - DORSALGIA, UNSPECIFIED (9) Dehydration Code(s): E86.0 - DEHYDRATION (10) Diastolic dysfunction Code(s): I51.9 - HEART DISEASE, UNSPECIFIED (11) Elevated brain natriuretic peptide (BNP) level Code(s): R79.89 - OTHER SPECIFIED ABNORMAL FINDINGS OF BLOOD CHEMISTRY (12) History of dyspnea Code(s): Z87.09 - PERSONAL HISTORY OF OTHER DISEASES OF THE RESPIRATORY SYSTEM (13) Hypoxia Code(s): R09.02 - HYPOXEMIA (14) Leukocytosis Code(s): D72.829 - ELEVATED WHITE BLOOD CELL COUNT, UNSPECIFIED Qualifiers: Leukocytosis type: unspecified Qualified Code(s): D72.829 - Elevated white blood cell count, unspecified (15) Malignancy Code(s): C80.1 - MALIGNANT (PRIMARY) NEOPLASM, UNSPECIFIED (16) Paroxysmal atrial fibrillation Code(s): I48.0 - PAROXYSMAL ATRIAL FIBRILLATION (17) Pericardial effusion Code(s): I31.3 - PERICARDIAL EFFUSION (NONINFLAMMATORY) (18) Pleural effusion Code(s): J90 - PLEURAL EFFUSION, NOT ELSEWHERE CLASSIFIED (19) Pneumonia Code(s): J18.9 - PNEUMONIA, UNSPECIFIED ORGANISM Qualifiers: Pneumonia type: due to unspecified organism Laterality: left (20) Renal dysfunction Code(s): N28.9 - DISORDER OF KIDNEY AND URETER, UNSPECIFIED (21) Respiratory distress Code(s): R06.03 - ACUTE RESPIRATORY DISTRESS (22) Sepsis Code(s): A41.9 - SEPSIS, UNSPECIFIED ORGANISM (23) Shortness of breath Code(s): R06.02 - SHORTNESS OF BREATH (24) Sinus bradycardia Code(s): R00.1 - BRADYCARDIA, UNSPECIFIED (25) Chronic kidney disease Code(s): N18.9 - CHRONIC KIDNEY DISEASE, UNSPECIFIED Qualifiers: Chronic kidney disease stage: stage 2 (mild) Qualified Code(s): N18.2 - Chronic kidney disease, stage 2 (mild) (26) HTN (hypertension) Code(s): I10 - ESSENTIAL (PRIMARY) HYPERTENSION Qualifiers: Hypertension type: essential hypertension Qualified Code(s): I10 - Essential (primary) hypertension (27) Hypercholesterolemia Code(s): E78.00 - PURE HYPERCHOLESTEROLEMIA, UNSPECIFIED (28) Osteoarthritis Code(s): M19.90 - UNSPECIFIED OSTEOARTHRITIS, UNSPECIFIED SITE Qualifiers: Osteoarthritis location: knee Osteoarthritis type: unspecified Laterality : right Qualified Code(s): M17.11 - Unilateral primary osteoarthritis, right knee Assessment/Plan AF RVR ?SEpsis hypotension h/o CHF with diastolic dysfunction Plan agree with ABX IVF Cardizem drip restart Metoprolol ICU monitoring Prognosis is guarded d/w son at the bedside
[2018-10-03] MEDS ORDERED: dilTIAZem HCL 50 MG/10 ML - 10 ML VIAL ONE (17:23)
[2018-10-03] MEDS: DILTIAZEM INJECTION 125 MG in SODIUM CHLORIDE 100 ML IVPB SCH (17:48)
[2018-10-03] MEDS ORDERED: CEFTRIAXONE 1,000 MG in DEXTROSE 5%-WATER - 50 ML IVPB ONE (18:05)
[2018-10-03] MEDS ORDERED: CEFTRIAXONE 1 GM/50 ML BAG ONE ×2 (18:06→18:07)
[2018-10-03] MEDS ORDERED: VANCOMYCIN 1 GRAM (PRE-DOCKED) 1,000 MG/250 ML BAG IVPB ONE (18:06)
--- NOTE | 2018-10-03 18:28 | CONSULT ---
Consultation: REQUESTING PROVIDER: CONSULT REQUEST: We have been asked to medically evaluate this patient for ( afib with low BP ). HISTORY OF PRESENT ILLNESS: Patient is a 88-year-old female past medical history of A. fib on anticoagulation (Eliquis), anemia, CHF, dysphagia, hypertension, hyperlipidemia, dementia who presents to the emergency department today for weakness from couple of days. Her son states that she has not been acting like herself since Monday and that she has felt more weak. He noticed at the [facility] her pulse was going up into the 130s since monday and BP was going down. Patient also reports that she had couple of episodes of vomiting in morning, denies blood in vomit and unable to tell quantity of vomit. Denies laine in abdomen, diarrhoea, fever and chills. Denies abdominal distension. Patient denies chest pain, shortness of breath or difficulty breathing. IN ER pt found to have rapid aflutter with rvr and got IV metoprolol x2 and cardiazem push . Pt had fall in BP after meds and got IV fluid which helped in her BP. Later on pt was started on cradiazem drip. Pt had also recieved toprol xl 25mg po in er. Pt also got vancomycin and ceftriaxone in er REVIEW OF SYSTEMS: CONSTITUTIONAL: Absent: fever, chills, diaphoresis, generalized weakness, malaise, loss of appetite, HEENT: Absent: rhinorrhea, nasal congestion, throat pain, throat swelling, CARDIOVASCULAR: Absent: chest pain, syncope, palpitations, irregular heart rate, lightheadedness , peripheral edema RESPIRATORY: Absent: cough, shortness of breath, dyspnea with exertion, orthopnea, GASTROINTESTINAL: Absent: abdominal pain, abdominal distension, nausea, vomiting, diarrhea, constipation, melena, hematochezia GENITOURINARY: Absent: dysuria, frequency, urgency, hesitancy, PHYSICAL EXAMINATION Vital Signs - 24 hr 10/03/18 10/03/18 10/03/18 10:55 11:15 11:16 Temperature 97.0 F L 97.8 F Pulse Rate 147 H Pulse Rate [ Apical] Respiratory 16 Rate Blood Pressure 105/71 Blood Pressure [Left Arm] O2 Sat by Pulse 96 99 Oximetry (%) 10/03/18 10/03/18 10/03/18 12:10 12:11 12:37 Temperature Pulse Rate Pulse Rate [ 145 H 142 H Apical] Respiratory 18 18 Rate Blood Pressure 112/77 Blood Pressure 112/77 100/67 [Left Arm] O2 Sat by Pulse 100 100 Oximetry (%) 10/03/18 10/03/18 10/03/18 13:00 13:15 17:48 Temperature Pulse Rate 147 H Pulse Rate [ 142 H 143 H Apical] Respiratory 26 H 23 H Rate Blood Pressure 105/75 101/46 L Blood Pressure 106/74 105/75 [Left Arm] O2 Sat by Pulse 100 100 Oximetry (%) GENERAL: Awake, alert, and fully oriented, in no acute distress. HEAD: Normal with no signs of trauma. EYES: Pupils equal, round and reactive to light, conjunctiva clear. EARS, NOSE, THROAT: Ears normal, nares patent, oropharynx clear without exudates. dry mucous membranes. NECK: supple without lymphadenopathy, no JVD, LUNGS: Breath sounds equal, clear to auscultation bilaterally. No wheezes, and no crackles. No accessory muscle use. HEART: irrregular s1s2 normal ABDOMEN: Soft, nontender, not distended, normoactive bowel sounds, no guarding, no rebound, no masses. UPPER EXTREMITIES: 2+ pulses, warm, well-perfused. No peripheral edema. LOWER EXTREMITIES: warm, well-perfused. No calf tenderness. peripheral edema + . NEUROLOGICAL: Normal speech. PSYCHIATRIC: Cooperative. SKIN: Warm, dry, Laboratory Results - last 24 hr 10/03/18 10/03/18 10/03/18 11:15 11:15 11:15 WBC 7.7 RBC 3.50 L Hgb 10.3 L Hct 29.8 L MCV 85.1 MCH 29.3 MCHC 34.4 RDW 18.1 H Plt Count 395 D MPV 8.5 D Absolute Neuts (auto) 4.8 Neutrophils % 62.7 Lymphocytes % 23.5 D Monocytes % 12.1 H Eosinophils % 0.9 Basophils % 0.8 Nucleated RBC % 0 PT with INR 20.30 H INR 1.71 H PTT (Actin FS) 36.5 VBG pH POC VBG pCO2 POC VBG pO2 Mixed VBG HCO3 Sodium 141 Potassium 3.8 Chloride 103 Carbon Dioxide 29 Anion Gap 8 BUN 27 H Creatinine 1.7 H Creat Clearance w eGFR 28.30 Random Glucose 118 H Lactic Acid Calcium 8.7 Total Bilirubin 0.6 AST 26 ALT 22 Alkaline Phosphatase 103 Troponin I < 0.02 Total Protein 6.0 L Albumin 3.1 L Urine Color Urine Appearance Urine pH Ur Specific [place] Urine Protein Urine Glucose (UA) Urine Ketones Urine Blood Urine Nitrite Urine Bilirubin Urine Urobilinogen Ur Leukocyte Esterase Urine WBC (Auto) Urine RBC (Auto) Ur Epithelial Cells Hyaline Casts Urine Mucus 10/03/18 10/03/18 10/03/18 11:16 11:40 12:19 WBC RBC Hgb Hct MCV MCH MCHC RDW Plt Count MPV Absolute Neuts (auto) Neutrophils % Lymphocytes % Monocytes % Eosinophils % Basophils % Nucleated RBC % PT with INR INR PTT (Actin FS) VBG pH 7.40 POC VBG pCO2 50.2 POC VBG pO2 34.8 Mixed VBG HCO3 30.7 H Sodium Potassium Chloride Carbon Dioxide Anion Gap BUN Creatinine Creat Clearance w eGFR Random Glucose Lactic Acid 1.4 Calcium Total Bilirubin AST ALT Alkaline Phosphatase Troponin I Total Protein Albumin Urine Color Yellow Urine Appearance Clear Urine pH 5.0 Ur Specific [place] 1.014 Urine Protein 1+ H D Urine Glucose (UA) Negative Urine Ketones Negative Urine Blood Negative Urine Nitrite Negative Urine Bilirubin Negative Urine Urobilinogen Negative Ur Leukocyte Esterase Negative Urine WBC (Auto) 1 Urine RBC (Auto) <1 Ur Epithelial Cells Rare Hyaline Casts 15 Urine Mucus Rare Active Medications Generic Name Dose Route Start Last Admin Trade Name Freq PRN Reason Stop Dose Admin Sodium Chloride 1,000 mls @ 125 mls/hr 10/03/18 15:34 10/03/18 15:45 Normal Saline - IV 10/03/18 23:33 125 mls/hr ASDIR STA Administration Diltiazem HCl 125 mg/ Sodium 125 mls @ 5 mls/hr 10/03/18 17:30 10/03/18 17:48 Chloride IVPB 5 mg/hr TITR ROSEANNE 5 mls/hr Administration Protocol 5 MG/HR Vancomycin HCl 1,000 mg/ 250 mls @ 166.667 mls/hr 10/03/18 17:18 Dextrose IVPB 10/03/18 18:47 ONCE ONE Protocol Ceftriaxone Sodium 1,000 mg/ 50 mls @ 100 mls/hr 10/03/18 18:05 10/03/18 18: 14 Dextrose IVPB 10/03/18 18:34 100 mls/hr ONCE ONE Administration Sodium Chloride 1,000 mls @ 1,000 mls/hr 10/03/18 18:16 Normal Saline - IV 10/03/18 19:15 ASDIR STA ASSESSMENT/PLAN: afib/aflutter with rvr cardiac monitoring IV cardiazem drip monitor vitals keep HR< 80 continue ac eliquis 2.5 bid cardilogy on case get TSH follow electrolytes. in home she is on cardiazem 90 bid and toprol xl 25 daily. Pt states she is complaint with meds vomiting no h/o sick contact, no pain belly, no fever and chills no episode of vomiting in hospital give phenergan prn for vomiting IV fluid orally allowed as tolerated. kassandra on ckd base line 1.2 lana prerenal avoid nephrotoxic drugs monitor creatinine monitor urine output h/o urine retention. get bladder nd renal ultrasound get cardiac profile didn't make urine whole day Iv fluid ?sepsis less likely, pt is afebrile and wbc are normal. Low BP can be because of afib. got empiric antibiotics ceftriaxone, vanco and flagyl antibiotic as per primary team follow cultures UA negative cxr - left side effusion with atelectasis-- no significant change since last xray. get lactic acid incentive spirometry DCHF stable hold lasix for now as Bp is on lower side. h/o htn hold po BP meds losartan h/o constipation continue her bowel regime meds h/o anemia Hb stable h/o hld continue statin Fluid: give with repeated auscultation, avoid fluid overload electrolyte repeat in am nutrition: continue regular diet dvt pro: eliquis 2.5 bid gi pro: not required Dispo: We will continue to follow the patient. Thank you for this consultative opportunity. Visit type - Emergency Visit Emergency Visit: Yes ED Registration Date: 10/03/18 Care time: The patient presented to the Emergency Department on the above date and was hospitalized for further evaluation of their emergent condition. - New Patient This patient is new to me today: Yes Date on this admission: 10/04/18 - Critical Care Critical Care patient: Yes Total Critical Care Time (in minutes): 45 Critical Care Statement: The care of this patient involved high complexity decision making to prevent further life threatening deterioration of the patient 's condition and/or to evaluate & treat vital organ system(s) failure or risk of failure.
[2018-10-03] MEDS ORDERED: MORPHINE SULFATE 2 MG/ML VIAL IVPUSH ONE (18:36)
[2018-10-03] MEDS ORDERED: MORPHINE SULFATE 2 MG/ML VIAL ONE (18:55)
[2018-10-03] MEDS ORDERED: ACETAMINOPHEN 500 MG TABLET (FP) PO PRN (19:02)
--- NOTE | 2018-10-03 19:21 | HP ---
CHIEF COMPLAINT: Tachycardia PCP: Dr. Mami Pascual HISTORY OF PRESENT ILLNESS: 88 year old female with a PMH significant for A-fib (on Eliquis), diastolic CHF , HTN, HLD, gout, glaucoma, osteoarthritis presented to the ED from sub acute rehab with elevated pulse in the 130s since Monday. Patient has been in sub acute rehab at [facility] since her d/c from [facility] on 08/22/18 for sepsis secondary to pneumonia. Patient's adult son present who provided history, he is her primary care nurse rn. Son reports that his mother was "not her self" for the past several days, she was more easily fatigued and more confused. She was not able to participate in PT as well as she had been. She had an episode of vomiting this morning. Her pulse was in the 130s during this time period. Denies fever, GAMEZ, syncope, SOB, congestion, chest pain, abdominal pain, diarrhea. Upon admission to the ED pulse was 147. Labs notable for BUN/Cr 27/1.7, EKG showed A-flutter. CXR showed questionable infiltrate to LLL. She was given Metoprolol 5 mg IVP x 2 and 25 mg PO x1, and Cardizem 10mg IVP, 1 L bolus of NS. She was seen by pyrotechnician Dr. Arrington and started on a Cardizem drip at 5 mg/hr. HR in the ED remained in the 140s, BP went down to 95/61. She was accepted into the ICU for monitoring. Recent Travel: No PAST MEDICAL HISTORY: A-fib (on Eliquis) Diastolic CHF HTN HLD Gout Glaucoma Osteoarthritis PAST SURGICAL HISTORY: Cataracts b/l Social History: Lives at home with her adult son who is her primary care nurse rn Smoking: Never Alcohol: Rarely Drugs: Denies Allergies amoxicillin Allergy (Verified 10/03/18 11:11) HOME MEDICATIONS: Home Medications Medication Instructions Recorded Simvastatin 20 mg PO HS 04/10/17 Timolol 0.5% [Timoptic 0.5%] 1 drop OU BID 04/10/17 Apixaban [Eliquis] 2.5 mg PO BID #28 tablet 04/14/17 Diltiazem [Cardizem -] 90 mg PO BID #90 tablet 08/22/18 Docusate Sodium [Colace -] 100 mg PO DAILY #30 capsule 08/22/18 Furosemide [Lasix -] 40 mg PO DAILY #60 tablet 08/22/18 Losartan Potassium [Cozaar -] 25 mg PO DAILY #30 tablet 08/22/18 Metoprolol Succinate [Toprol XL -] 25 mg PO DAILY #30 tab.sr.24h 08/22/18 Ropinirole HCl [Requip -] 1 mg PO DAILY #30 tablet 08/22/18 Acetaminophen [Extra Strength 500 mg PO Q8H PRN 10/03/18 Non-Aspirin] Allopurinol [Zyloprim -] 100 mg PO DAILY 10/03/18 Bethanechol Chloride [Urecholine -] 25 mg PO QID 10/03/18 Collagenase Clostridium Hist. 1 applic TP DAILY 10/03/18 [Santyl] Docusate Sodium [Colace] 200 mg PO HS 10/03/18 Lactobacillus Acidophilus [Bacid -] 1 each PO 10/03/18 Sennosides [Senna] 2 tab PO HS 10/03/18 REVIEW OF SYSTEMS CONSTITUTIONAL: (+) generalized weakness, 10 lb weight loss over the past year, loss of appetite Absent: fever, chills, diaphoresis, malaise HEENT: Absent: rhinorrhea, nasal congestion, throat pain, throat swelling, difficulty swallowing, mouth swelling, ear pain, eye pain, visual changes CARDIOVASCULAR: (+) palpitations, irregular heart rate Absent: chest pain, syncope, lightheadedness, peripheral edema RESPIRATORY: Absent: cough, shortness of breath, dyspnea with exertion, orthopnea, wheezing, stridor, hemoptysis GASTROINTESTINAL: (+) vomiting Absent: abdominal pain, abdominal distension, nausea, diarrhea, constipation, melena, hematochezia GENITOURINARY: Absent: dysuria, frequency, urgency, hesitancy, hematuria, flank pain, genital pain MUSCULOSKELETAL: (+) leg pain Absent: myalgia, arthralgia, joint swelling, back pain, neck pain SKIN: Absent: rash, itching, pallor HEMATOLOGIC/IMMUNOLOGIC: Absent: easy bleeding, easy bruising, lymphadenopathy, frequent infections ENDOCRINE: Absent: unexplained weight gain, unexplained weight loss, heat intolerance, cold intolerance NEUROLOGIC: (+) Mental status changes Absent: headache, focal weakness or paresthesias, dizziness, unsteady gait, seizure, bladder or bowel incontinence PSYCHIATRIC: Absent: anxiety, depression, suicidal or homicidal ideation, hallucinations. PHYSICAL EXAMINATION Vital Signs - 24 hr 10/03/18 10/03/18 10/03/18 10:55 11:15 11:16 Temperature 97.0 F L 97.8 F Pulse Rate 147 H Pulse Rate [ Apical] Respiratory 16 Rate Blood Pressure 105/71 Blood Pressure [Left Arm] O2 Sat by Pulse 96 99 Oximetry (%) 10/03/18 10/03/18 10/03/18 12:10 12:11 12:37 Temperature Pulse Rate Pulse Rate [ 145 H 142 H Apical] Respiratory 18 18 Rate Blood Pressure 112/77 Blood Pressure 112/77 100/67 [Left Arm] O2 Sat by Pulse 100 100 Oximetry (%) 10/03/18 10/03/18 10/03/18 13:00 13:15 14:00 Temperature Pulse Rate Pulse Rate [ 142 H 143 H 142 H Apical] Respiratory 26 H 23 H 20 Rate Blood Pressure 105/75 Blood Pressure 106/74 105/75 104/72 [Left Arm] O2 Sat by Pulse 100 100 100 Oximetry (%) 10/03/18 10/03/18 10/03/18 14:30 15:00 15:30 Temperature Pulse Rate Pulse Rate [ 143 H 143 H 144 H Apical] Respiratory 23 H 18 25 H Rate Blood Pressure Blood Pressure 100/73 106/67 108/80 [Left Arm] O2 Sat by Pulse 100 100 100 Oximetry (%) 10/03/18 10/03/18 17:48 18:47 Temperature Pulse Rate 147 H Pulse Rate [ 146 H Apical] Respiratory 23 H Rate Blood Pressure 101/46 L Blood Pressure 95/61 [Left Arm] O2 Sat by Pulse 100 Oximetry (%) GENERAL: Elderly, frail, awake, alert to person only, fidgeting in bed HEAD: Normal with no signs of trauma. EYES: Extraocular movements intact, sclera anicteric, conjunctiva clear. No lid lag. EARS, NOSE, THROAT: Ears normal, nares patent NECK: Normal range of motion, supple LUNGS: Diminished breath sounds, no wheezing. No accessory muscle use. HEART: Irregularly irregular, tachycardic, no murmurs appreciated ABDOMEN: Soft, nontender, not distended, normoactive bowel sounds, no guarding, no rebound, no masses. No hepatomegaly or splenomegaly. MUSCULOSKELETAL: Normal range of motion at all joints. Enlarged knees . No CVA tenderness. LOWER EXTREMITIES: R>L leg, non-pitting, warm, well-perfused. No calf tenderness. NEUROLOGICAL: No facial droop, tongue midline PSYCHIATRIC: Appears anxious SKIN: Warm, dry Laboratory Results - last 24 hr 10/03/18 10/03/18 10/03/18 11:15 11:15 11:15 WBC 7.7 RBC 3.50 L Hgb 10.3 L Hct 29.8 L MCV 85.1 MCH 29.3 MCHC 34.4 RDW 18.1 H Plt Count 395 D MPV 8.5 D Absolute Neuts (auto) 4.8 Neutrophils % 62.7 Lymphocytes % 23.5 D Monocytes % 12.1 H Eosinophils % 0.9 Basophils % 0.8 Nucleated RBC % 0 PT with INR 20.30 H INR 1.71 H PTT (Actin FS) 36.5 VBG pH POC VBG pCO2 POC VBG pO2 Mixed VBG HCO3 Sodium 141 Potassium 3.8 Chloride 103 Carbon Dioxide 29 Anion Gap 8 BUN 27 H Creatinine 1.7 H Creat Clearance w eGFR 28.30 Random Glucose 118 H Lactic Acid Calcium 8.7 Total Bilirubin 0.6 AST 26 ALT 22 Alkaline Phosphatase 103 Troponin I < 0.02 Total Protein 6.0 L Albumin 3.1 L Urine Color Urine Appearance Urine pH Ur Specific [place] Urine Protein Urine Glucose (UA) Urine Ketones Urine Blood Urine Nitrite Urine Bilirubin Urine Urobilinogen Ur Leukocyte Esterase Urine WBC (Auto) Urine RBC (Auto) Ur Epithelial Cells Hyaline Casts Urine Mucus 10/03/18 10/03/18 10/03/18 11:16 11:40 12:19 WBC RBC Hgb Hct MCV MCH MCHC RDW Plt Count MPV Absolute Neuts (auto) Neutrophils % Lymphocytes % Monocytes % Eosinophils % Basophils % Nucleated RBC % PT with INR INR PTT (Actin FS) VBG pH 7.40 POC VBG pCO2 50.2 POC VBG pO2 34.8 Mixed VBG HCO3 30.7 H Sodium Potassium Chloride Carbon Dioxide Anion Gap BUN Creatinine Creat Clearance w eGFR Random Glucose Lactic Acid 1.4 Calcium Total Bilirubin AST ALT Alkaline Phosphatase Troponin I Total Protein Albumin Urine Color Yellow Urine Appearance Clear Urine pH 5.0 Ur Specific [place] 1.014 Urine Protein 1+ H D Urine Glucose (UA) Negative Urine Ketones Negative Urine Blood Negative Urine Nitrite Negative Urine Bilirubin Negative Urine Urobilinogen Negative Ur Leukocyte Esterase Negative Urine WBC (Auto) 1 Urine RBC (Auto) <1 Ur Epithelial Cells Rare Hyaline Casts 15 Urine Mucus Rare ASSESSMENT/PLAN: 88 year old female with a PMH significant for A-fib (on Eliquis), diastolic CHF , HTN, HLD, gout, glaucoma, osteoarthritis presented to the ED from sub acute rehab with elevated pulse in the 130s since Monday. She was seen by cardiology in the ED and was started on a cardizem drip then admitted to the ICU. Paroxysmal A-Fib with RVR - Pulse in the 130s x 3 days, 147 upon admission - Seen by pyrotechnician Dr. Arrington - Cardizem drip @ 5 mg/HR - in ICU - Continue home medications: - Metoprolol Succinate 25 mg PO qday - Eliquis 2.5 mg PO BID Recent PNA - Hospitalized in [facility] 1 month ago and treated for sepsis with 10 day course of Levaquin. - Had thoracentesis (08/22) - CXR shows questionable infiltrate or atelectasis at left base - Broad spectrum IV antibiotics given in the ED: - Ceftriaxone 1G - Flagyl 500 mg - Vancomycin 1 G - Pulmonology consult with Dr. Willoughby ordered ABDOUL - BUN/Cr 27/1.7 - Baseline Cr 1.2 - 1.4 - Renal US negative for hydronephrosis, b/l atrophy, unchagned from 07/19/17 study. - IV fluids - Monitor BMP Diastolic CHF - HOLD home Lasix 40 gm PO qday HTN - Currently hypotensive - HOLD home Losartan 25 mg PO qday HLD - Atorvastatin 10 mg PO qhs Right heel pressure ulcer - Daily wound care with Santyl - Offload pressure to heel Gout - Allopurinol 100 mg PO qday Glaucoma - Timolol 0.5% 1 gtt OU BID Urinary Retention - Bethanechol Chloride 25 mg PO QID Restless leg syndrome - Continue Ropinirole 1 mg PO qday Pain Management - Actaminophen 500 mg PO q8h PRN Bowel regimen - Colace 100 mg qam, 200 mg QHS - Senna 2 tabs PO qhs Prophylaxis - DVT: On Eliquis 2.5 mg PO BID FEN - NS @ 125 cc/hr - Replete ask indicated - Sodium controlled diet Disp: Patient requires further monitoring in the ICU, once rate controlled, can be transferred to tele floor. DNR/DNI Visit type - Emergency Visit Emergency Visit: Yes ED Registration Date: 10/03/18 Care time: The patient presented to the Emergency Department on the above date and was hospitalized for further evaluation of their emergent condition. - New Patient This patient is new to me today: Yes Date on this admission: 10/04/18 - Critical Care Critical Care patient: No
[2018-10-03] MEDS ORDERED: DOCUSATE SODIUM 100 MG CAPSULE (FP) PO SCH (22:00)
[2018-10-03] MEDS ORDERED: SENNOSIDES 8.6MG TABLET (FP) PO SCH (22:00)
[2018-10-03] MEDS ORDERED: ATORVASTATIN CA 10 MG TABLET (FP) PO SCH (22:00)
[2018-10-03] MEDS ORDERED: CHLORHEXIDINE GLUCONATE 4% CLEANSER FOR DECOLONIZATION TP SCH ×2 (22:00)
[2018-10-03] MEDS ORDERED: MUPIROCIN 2% TOPICAL OINTMENT FOR DECOLONIZATION NS SCH (22:00)
[2018-10-03] MEDS: MUPIROCIN 2% TOPICAL OINTMENT FOR DECOLONIZATION NS SCH (22:43)
[2018-10-03] MEDS: BETHANECHOL CHLORIDE 25 MG TABLET PO SCH (22:43)
[2018-10-03] MEDS: TIMOLOL 0.5% OPHTHALMIC SOL 5 ML BOTTLE OU SCH (22:43)
[2018-10-03] MEDS: APIXABAN 2.5 MG TABLET PO SCH (22:43)
[2018-10-04 06:12] LABS: BASO % 0.4 % (0-2.0); EOS % 1.2 % (0-4.5); HEMATOCRIT 30.5 % (32.4-45.2); HEMOGLOBIN 9.6 GM/dL (10.7-15.3); LYMPH % 19.2 % (8-40); MCH 27.6 pg (25.7-33.7); MCHC 31.6 g/dl (32.0-36.0); MEAN CELL VOLUME 87.4 fl (80-96); MEAN PLT VOLUME 8.2 fl (7.5-11.1); MONO % 14.6 % (3.8-10.2); NEUT % 64.6 % (42.8-82.8); PLATELET COUNT 319 K/MM3 (134-434); WHITE BLOOD COUNT 8.5 K/mm3 (4.0-10.0)
[2018-10-04 06:34] LABS: INR 1.67 (0.83-1.09); PROTHROMBIN TIME (PATIENT) 19.8 SEC (9.7-13.0)
[2018-10-04 06:37] LABS: ALBUMIN 2.8 g/dl (3.4-5.0); ALK PHOS 99 U/L (45-117); ANION GAP 6 MMOL/L (8-16); BILIRUBIN,TOTAL 0.5 mg/dL (0.2-1); BLOOD UREA NITROGEN 24 mg/dL (7-18); CALCIUM 8.3 mg/dL (8.5-10.1); CHLORIDE 106 mmol/L (98-107); CO2 30 mmol/L (21-32); CREATININE 1.4 mg/dL (0.55-1.3); GLUCOSE,RANDOM 100 mg/dL (74-106); MAGNESIUM 1.9 mg/dL (1.8-2.4); PHOSPHOROUS 4.6 mg/dL (2.5-4.9); POTASSIUM 3.5 mmol/L (3.5-5.1); SGOT/AST 24 U/L (15-37); SGPT/ALT 21 U/L (13-61); SODIUM 142 mmol/L (136-145); TOT PROT 5.3 g/dl (6.4-8.2)
--- NOTE | 2018-10-04 07:48 | PN ---
Physical Exam: SUBJECTIVE: Patient seen and examined at bedside. No acute events overnight. Pt complaining of pain near her L breast. Denies hernandez/d, chest pain, sob, abd pain, n /v. OBJECTIVE: Vital Signs Period Temp Pulse Resp BP Sys/Kraus Pulse Ox Last 24 Hr 97.0 F-98.6 F 97-148 16-29 95-114/46-86 96-100 GENERAL: AAOx3. NAD. HEENT: AT/NC. EOMI. Wearing glasses. NECK: Supple, no LAD/JVD. LUNGS: CTA B/L. No wheezes noted. Symmetric chest rise. CHEST: Reproducible pain on lateral L breast. HEART: Irregularly irregular. No murmurs noted. ABDOMEN: Soft, nontender, not distended, normoactive bowel sounds, no guarding, no rebound, no masses. EXTREMITIES: 2+ dorsalis pedis pulses. No peripheral edema noted. NEUROLOGICAL: Normal speech. PSYCHIATRIC: Cooperative. SKIN: Warm, dry. CBCD WBC 8.5 K/mm3 (4.0-10.0) 10/04/18 05:30 RBC 3.50 M/mm3 (3.60-5.2) L 10/04/18 05:30 Hgb 9.6 GM/dL (10.7-15.3) L 10/04/18 05:30 Hct 30.5 % (32.4-45.2) L 10/04/18 05:30 MCV 87.4 fl (80-96) 10/04/18 05:30 MCHC 31.6 g/dl (32.0-36.0) L 10/04/18 05:30 RDW 18.0 % (11.6-15.6) H 10/04/18 05:30 Plt Count 319 K/MM3 (134-434) 10/04/18 05:30 MPV 8.2 fl (7.5-11.1) 10/04/18 05:30 CMP Sodium 142 mmol/L (136-145) 10/04/18 05:30 Potassium 3.5 mmol/L (3.5-5.1) 10/04/18 05:30 Chloride 106 mmol/L (98-107) 10/04/18 05:30 Carbon Dioxide 30 mmol/L (21-32) 10/04/18 05:30 Anion Gap 6 MMOL/L (8-16) L 10/04/18 05:30 BUN 24 mg/dL (7-18) H 10/04/18 05:30 Creatinine 1.4 mg/dL (0.55-1.3) H 10/04/18 05:30 Creat Clearance w eGFR 35.41 (>60) 10/04/18 05:30 Calcium 8.3 mg/dL (8.5-10.1) L 10/04/18 05:30 Total Bilirubin 0.5 mg/dL (0.2-1) 10/04/18 05:30 AST 24 U/L (15-37) 10/04/18 05:30 ALT 21 U/L (13-61) 10/04/18 05:30 Alkaline Phosphatase 99 U/L (45-117) 10/04/18 05:30 Total Protein 5.3 g/dl (6.4-8.2) L 10/04/18 05:30 Albumin 2.8 g/dl (3.4-5.0) L 10/04/18 05:30 Active Medications Acetaminophen (Tylenol -) 500 mg PO Q8H PRN PRN Reason: PAIN 1-3 Last Admin: 10/04/18 01:53 Dose: 500 mg Allopurinol (Zyloprim -) 100 mg PO DAILY [facility] Apixaban (Eliquis -) 2.5 mg PO BID [facility] Last Admin: 10/03/18 22:43 Dose: 2.5 mg Atorvastatin Calcium (Lipitor -) 10 mg PO HS [facility] Last Admin: 10/03/18 22:43 Dose: 10 mg Bethanechol Chloride (Urecholine -) 25 mg PO QID [facility] Last Admin: 10/03/18 22:43 Dose: 25 mg Chlorhexidine Gluconate (Hibiclens For Decolonization -) 1 applic TP HS [facility] Last Admin: 10/03/18 22:43 Dose: 1 applic Collagenase (Santyl -) 1 applic TP DAILY [facility]; Protocol Docusate Sodium (Colace -) 200 mg PO HS [facility] Last Admin: 10/03/18 22:43 Dose: 200 mg Docusate Sodium (Colace -) 100 mg PO DAILY [facility] Diltiazem HCl 125 mg/ Sodium (Chloride) 125 mls @ 5 mls/hr IVPB TITR [facility]; Protocol Last Admin: 10/03/18 17:48 Dose: 5 mg/hr, 5 mls/hr Metoprolol Succinate (Toprol Xl -) 25 mg PO DAILY [facility] Mupirocin (Bactroban Ointment (For Decolonization) -) 1 applic NS BID [facility] Stop: 10/08/18 21:59 Last Admin: 10/03/18 22:43 Dose: 1 applic Ropinirole HCl (Requip -) 1 mg PO DAILY [facility] Senna (Senna -) 2 tab PO HS [facility] Last Admin: 10/03/18 22:43 Dose: 2 tab Timolol Maleate (Timoptic 0.5%) 1 drop OU BID [facility] Last Admin: 10/03/18 22:43 Dose: 1 drop ASSESSMENT/PLAN: 88F w/ pmhx of a fib/a. flutter, HTN, HLD, CHF w/ preserved EF admitted to the ICU for rate control of a fib with RVR on Cardizem drip. Neurology #Pain on L breast -heat pack given. Pain improved. Cardiology #A. fib/A. flutter with RVR -Cont home meds Cardizem 90 BID and Toprol XL 25 QD. -Titrate off IV Cardizem drip-cardiac monitoring. Will cont to monitor heart rate, if rate controlled; can transfer to tele. -Eliquis 2.5 bid for AC -monitor vitals -keep HR< 80 -TSH 4.04 -Cardiology following #HTN -hypotensive -hold po BP meds #HLD -continue statin #CHF w/ preserved EF -stable -hold lasix for now as BP is on lower side. GI #vomiting no h/o sick contact, no pain belly, no fever and chills no episode of vomiting in hospital give phenergan prn for vomiting IV fluid orally allowed as tolerated. #Constipation -bowel regimen Renal #ABDOUL on CKD; likely 2/2 dehydration -Baseline 1.2; Improved, 1.7 > 1.4. -Renal U/s showed no hydronephrosis; +b/l renal atrophy -avoid nephrotoxic drugs ID #? sepsis 2/2 UTI -Pt is an elderly female with increased risk of UTI and could possibly contribute to complaints of increased fatigue and confusion recently. -UCx showed non-lactose fermenting GNB, >100,000; although U/A neg -Per ID, give empiric Ceftriaxone -CXR showed L side effusion with atelectasis-- no significant change since last xray. -Lactate wnl Hematology #Anemia -Hgb stable, 9.6 -Cont to monitor Prophylaxis DVT- eliquis 2.5 bid GI- not required FEN -give with repeated auscultation, avoid fluid overload -recheck lytes in AM -dysphagia pureed diet with nectar thick liquids dispo -DNR/DNI -cont to monitor in ICU Visit type - Emergency Visit Emergency Visit: Yes ED Registration Date: 10/03/18 Care time: The patient presented to the Emergency Department on the above date and was hospitalized for further evaluation of their emergent condition. - New Patient This patient is new to me today: Yes Date on this admission: 10/04/18 - Critical Care Critical Care patient: Yes Total Critical Care Time (in minutes): 36 Critical Care Statement: The care of this patient involved high complexity decision making to prevent further life threatening deterioration of the patient 's condition and/or to evaluate & treat vital organ system(s) failure or risk of failure.
--- NOTE | 2018-10-04 08:27 | PN ---
Progress Note, Physician Chief Complaint: Pt A&OX3; sitting up in bed; denies chest pain or palpitations; weak; easily dyspneic History of Present Illness: Patient is a 88-year-old white female with past medical history of A. fib on anticoagulation (Eliquis), anemia, mild systolic CHF, dysphagia, hypertension, hyperlipidemia, dementia who presents to the emergency department today for weakness. Her son states that she has not been acting like herself since Monday and that she has felt more weak. He noticed at the [facility] her pulse was going up into the 130s since Monday. Patient denies chest pain, shortness of breath or difficulty breathing. She states that she feels fine and wants to go home. Triage vital signs notable for pulse of 147, blood pressure of 105/71, pulse ox of 96. Rectal temperature is 90.7 - Current Medication List Current Medications: Active Medications Acetaminophen (Tylenol -) 500 mg PO Q8H PRN PRN Reason: PAIN 1-3 Last Admin: 10/04/18 01:53 Dose: 500 mg Allopurinol (Zyloprim -) 100 mg PO DAILY [facility] Apixaban (Eliquis -) 2.5 mg PO BID [facility] Last Admin: 10/03/18 22:43 Dose: 2.5 mg Atorvastatin Calcium (Lipitor -) 10 mg PO HS [facility] Last Admin: 10/03/18 22:43 Dose: 10 mg Bethanechol Chloride (Urecholine -) 25 mg PO QID [facility] Last Admin: 10/03/18 22:43 Dose: 25 mg Chlorhexidine Gluconate (Hibiclens For Decolonization -) 1 applic TP HS [facility] Last Admin: 10/03/18 22:43 Dose: 1 applic Collagenase (Santyl -) 1 applic TP DAILY [facility]; Protocol Docusate Sodium (Colace -) 200 mg PO HS [facility] Last Admin: 10/03/18 22:43 Dose: 200 mg Docusate Sodium (Colace -) 100 mg PO DAILY [facility] Diltiazem HCl 125 mg/ Sodium (Chloride) 125 mls @ 5 mls/hr IVPB TITR [facility]; Protocol Last Admin: 10/03/18 17:48 Dose: 5 mg/hr, 5 mls/hr Metoprolol Succinate (Toprol Xl -) 25 mg PO DAILY [facility] Mupirocin (Bactroban Ointment (For Decolonization) -) 1 applic NS BID [facility] Stop: 10/08/18 21:59 Last Admin: 10/03/18 22:43 Dose: 1 applic Ropinirole HCl (Requip -) 1 mg PO DAILY [facility] Senna (Senna -) 2 tab PO HS [facility] Last Admin: 10/03/18 22:43 Dose: 2 tab Timolol Maleate (Timoptic 0.5%) 1 drop OU BID [facility] Last Admin: 10/03/18 22:43 Dose: 1 drop - Objective Vital Signs: Vital Signs Temperature 97.8 F 10/04/18 06:00 Pulse Rate 97 H 10/04/18 06:00 Respiratory Rate 21 H 10/04/18 06:00 Blood Pressure 101/68 10/04/18 06:00 O2 Sat by Pulse Oximetry (%) 98 10/03/18 20:47 Constitutional: Yes: Calm, Thin Eyes: Yes: WNL HENT: Yes: WNL Neck: Yes: WNL Cardiovascular: Yes: Murmur, S1 (varies in intensity), S2 Respiratory: Yes: Diminished Gastrointestinal: Yes: Soft ...Rectal Exam: Yes: Deferred Genitourinary: No: Anuria Breast(s): Yes: WNL Musculoskeletal: Yes: Muscle Weakness Extremities: Yes: Cool Edema: No Peripheral Pulses WNL: Yes Integumentary: Yes: Venous Stasis Changes Neurological: Yes: Alert, Oriented, Weakness Psychiatric: Yes: Alert, Other (hx "mild" dementia) Labs: CBC, BMP 10/04/18 05:30 10/04/18 05:30 INR, PTT INR 1.67 (0.83-1.09) H 10/04/18 05:30 Abnormal Lab Results 10/04/18 05:30 Anion Gap 6 L BUN 24 H Creatinine 1.4 H Calcium 8.3 L Total Protein 5.3 L Albumin 2.8 L Prealbumin 9.5 L - ....Imaging Chest X-ray: Image Reviewed (progressive vascular congestion; right pleural effusion) Problem List - Problems (1) Acute on chronic systolic and diastolic heart failure, NYHA class 1 Assessment/Plan: ECHO: mildly reduced LVEF; moderate TR with RVSP at least 40 mmHg; moderate LAE ; mild SAAD; mild MR and VT; small pericardial effusion; + pleural effusion. On metoprolol. Add ACEI or ARB when renal function (presently reduced) and BP allow. F/u BUN/Cr, electrolytes, Is and Os, daily weight. Code(s): I50.43 - ACUTE ON CHRONIC COMBINED SYSTOLIC AND DIASTOLIC HRT FAIL (2) Atrial fibrillation with RVR Assessment/Plan: Increase metoprolol to 50 mg bid. On diltiazem; if possible, taper off diltiazem IV drip and reduce from 90 mg bid to 120 mg daily (mildly reduced LVEF). If AF remains refractory to the above, will have to consider amiodarone. On apixaban for anticoagulation. TSH mildly elevated; normal Free T4. Maintain electrolytes (keep K 4-4.5, Mg 2-2.4; PO4 2.5-4.9). Code(s): I48.91 - UNSPECIFIED ATRIAL FIBRILLATION (3) Shortness of breath Code(s): R06.02 - SHORTNESS OF BREATH (4) Weakness Code(s): R53.1 - WEAKNESS (5) Chronic kidney disease Code(s): N18.9 - CHRONIC KIDNEY DISEASE, UNSPECIFIED Qualifiers: Chronic kidney disease stage: stage 2 (mild) Qualified Code(s): N18.2 - Chronic kidney disease, stage 2 (mild) (6) Hypercholesterolemia Assessment/Plan: On atorvastatin. Code(s): E78.00 - PURE HYPERCHOLESTEROLEMIA, UNSPECIFIED (7) Osteoarthritis Code(s): M19.90 - UNSPECIFIED OSTEOARTHRITIS, UNSPECIFIED SITE Qualifiers: Osteoarthritis location: knee Osteoarthritis type: unspecified Laterality : right Qualified Code(s): M17.11 - Unilateral primary osteoarthritis, right knee
[2018-10-04] MEDS ORDERED: METOPROLOL TARTRATE 5 MG/5 ML VIAL IVPUSH ONE ×4 (08:35→21:15)
[2018-10-04] MEDS ORDERED: metoPROLOL SUCCINATE 25 MG TAB.SR.24H (FP) PO SCH ×2 (08:36→10:00)
[2018-10-04] MEDS ORDERED: METOPROLOL TARTRATE 5 MG/5 ML VIAL ONE ×2 (08:42→17:38)
[2018-10-04] MEDS ORDERED: dilTIAZem HCL 50 MG/10 ML - 10 ML VIAL ONE (08:52)
[2018-10-04] MEDS: APIXABAN 2.5 MG TABLET PO SCH ×2 (09:10→21:29)
[2018-10-04] MEDS: BETHANECHOL CHLORIDE 25 MG TABLET PO SCH ×4 (09:10→21:29)
[2018-10-04] MEDS: DILTIAZEM INJECTION 125 MG in SODIUM CHLORIDE 100 ML IVPB SCH (09:11)
[2018-10-04] MEDS: MUPIROCIN 2% TOPICAL OINTMENT FOR DECOLONIZATION NS SCH (09:12)
[2018-10-04] MEDS ORDERED: PT OWN MED DRAWER 7, Y5N ONE ×2 (09:14→11:22)
--- NOTE | 2018-10-04 09:58 | PN ---
Physical Exam: SUBJECTIVE: Patient seen and examined, no new complaints. She is a poor historian. Remains in ICU. Required several pushes of diltiazem and MT overnight; now on dilt drip with pressures 90s/70s. Discussed with ICU resident Cardiology following; appreciate specialist input Growing GNRs in urine; on ceftriaxone only. When stable transfer to telemetry; watch pressures carefully. 10 item ROS couldnt be reliably completed due to clinical condition OBJECTIVE: Vital Signs Period Temp Pulse Resp BP Sys/Kraus Pulse Ox Last 24 Hr 97.0 F-98.6 F 97-148 16-29 95-114/43-86 96-100 GENERAL: The patient is awake, alert, and fully oriented, in no acute distress. HEAD: Normal with no signs of trauma. EYES: PERRL, extraocular movements intact, sclera anicteric, conjunctiva clear. No ptosis. ENT: Ears normal, nares patent, oropharynx clear without exudates, moist mucous membranes. NECK: Trachea midline, full range of motion, supple. LUNGS: Breath sounds equal, clear to auscultation bilaterally, no wheezes, no crackles, no accessory muscle use. HEART: Irregularly irregular, S1, S2 without murmur, rub or gallop. ABDOMEN: Soft, nontender, nondistended, normoactive bowel sounds EXTREMITIES: 2+ pulses, warm, well-perfused, no edema. NEUROLOGICAL: Cranial nerves II through XII grossly intact. Slightly slow to respond. Need to discuss baseline with family. PSYCH: Normal mood, normal affect. SKIN: Warm, dry, normal turgor, no rashes or lesions noted Laboratory Results - last 24 hr 10/03/18 10/03/18 10/03/18 11:15 11:15 11:15 WBC 7.7 RBC 3.50 L Hgb 10.3 L Hct 29.8 L MCV 85.1 MCH 29.3 MCHC 34.4 RDW 18.1 H Plt Count 395 D MPV 8.5 D Absolute Neuts (auto) 4.8 Neutrophils % 62.7 Lymphocytes % 23.5 D Monocytes % 12.1 H Eosinophils % 0.9 Basophils % 0.8 Nucleated RBC % 0 PT with INR 20.30 H INR 1.71 H PTT (Actin FS) 36.5 VBG pH POC VBG pCO2 POC VBG pO2 Mixed VBG HCO3 Sodium 141 Potassium 3.8 Chloride 103 Carbon Dioxide 29 Anion Gap 8 BUN 27 H Creatinine 1.7 H Creat Clearance w eGFR 28.30 Random Glucose 118 H Lactic Acid Calcium 8.7 Phosphorus Magnesium Total Bilirubin 0.6 AST 26 ALT 22 Alkaline Phosphatase 103 Creatine Kinase Troponin I < 0.02 Total Protein 6.0 L Albumin 3.1 L TSH Urine Color Urine Appearance Urine pH Ur Specific [place] Urine Protein Urine Glucose (UA) Urine Ketones Urine Blood Urine Nitrite Urine Bilirubin Urine Urobilinogen Ur Leukocyte Esterase Urine WBC (Auto) Urine RBC (Auto) Ur Epithelial Cells Hyaline Casts Urine Mucus 10/03/18 10/03/18 10/03/18 11:16 11:40 12:19 WBC RBC Hgb Hct MCV MCH MCHC RDW Plt Count MPV Absolute Neuts (auto) Neutrophils % Lymphocytes % Monocytes % Eosinophils % Basophils % Nucleated RBC % PT with INR INR PTT (Actin FS) VBG pH 7.40 POC VBG pCO2 50.2 POC VBG pO2 34.8 Mixed VBG HCO3 30.7 H Sodium Potassium Chloride Carbon Dioxide Anion Gap BUN Creatinine Creat Clearance w eGFR Random Glucose Lactic Acid 1.4 Calcium Phosphorus Magnesium Total Bilirubin AST ALT Alkaline Phosphatase Creatine Kinase Troponin I Total Protein Albumin TSH Urine Color Yellow Urine Appearance Clear Urine pH 5.0 Ur Specific [place] 1.014 Urine Protein 1+ H D Urine Glucose (UA) Negative Urine Ketones Negative Urine Blood Negative Urine Nitrite Negative Urine Bilirubin Negative Urine Urobilinogen Negative Ur Leukocyte Esterase Negative Urine WBC (Auto) 1 Urine RBC (Auto) <1 Ur Epithelial Cells Rare Hyaline Casts 15 Urine Mucus Rare 10/03/18 10/03/18 10/04/18 18:34 19:54 05:30 WBC 8.5 RBC 3.50 L Hgb 9.6 L Hct 30.5 L MCV 87.4 MCH 27.6 MCHC 31.6 L RDW 18.0 H Plt Count 319 MPV 8.2 Absolute Neuts (auto) 5.5 Neutrophils % 64.6 Lymphocytes % 19.2 Monocytes % 14.6 H Eosinophils % 1.2 Basophils % 0.4 Nucleated RBC % 0 PT with INR INR PTT (Actin FS) VBG pH POC VBG pCO2 POC VBG pO2 Mixed VBG HCO3 Sodium Potassium Chloride Carbon Dioxide Anion Gap BUN Creatinine Creat Clearance w eGFR Random Glucose Lactic Acid Calcium Phosphorus Magnesium Total Bilirubin AST ALT Alkaline Phosphatase Creatine Kinase 14 L Troponin I < 0.02 Total Protein Albumin TSH 4.04 H Urine Color Urine Appearance Urine pH Ur Specific [place] Urine Protein Urine Glucose (UA) Urine Ketones Urine Blood Urine Nitrite Urine Bilirubin Urine Urobilinogen Ur Leukocyte Esterase Urine WBC (Auto) Urine RBC (Auto) Ur Epithelial Cells Hyaline Casts Urine Mucus 10/04/18 10/04/18 10/04/18 05:30 05:30 05:30 WBC RBC Hgb Hct MCV MCH MCHC RDW Plt Count MPV Absolute Neuts (auto) Neutrophils % Lymphocytes % Monocytes % Eosinophils % Basophils % Nucleated RBC % PT with INR 19.80 H INR 1.67 H PTT (Actin FS) VBG pH POC VBG pCO2 POC VBG pO2 Mixed VBG HCO3 Sodium 142 Potassium 3.5 Chloride 106 Carbon Dioxide 30 Anion Gap 6 L BUN 24 H Creatinine 1.4 H Creat Clearance w eGFR 35.41 Random Glucose 100 Lactic Acid 1.1 Calcium 8.3 L Phosphorus 4.6 Magnesium 1.9 Total Bilirubin 0.5 AST 24 ALT 21 Alkaline Phosphatase 99 Creatine Kinase Troponin I Total Protein 5.3 L Albumin 2.8 L TSH Urine Color Urine Appearance Urine pH Ur Specific [place] Urine Protein Urine Glucose (UA) Urine Ketones Urine Blood Urine Nitrite Urine Bilirubin Urine Urobilinogen Ur Leukocyte Esterase Urine WBC (Auto) Urine RBC (Auto) Ur Epithelial Cells Hyaline Casts Urine Mucus Active Medications Generic Name Dose Route Start Last Admin Trade Name Freq PRN Reason Stop Dose Admin Acetaminophen 500 mg 10/03/18 19:02 10/04/18 01:53 Tylenol - PO 500 mg Q8H PRN Administration PAIN 1-3 Allopurinol 100 mg 10/04/18 10:00 10/04/18 09:10 Zyloprim - PO 100 mg DAILY [facility] Administration Apixaban 2.5 mg 10/03/18 22:00 10/04/18 09:10 Eliquis - PO 2.5 mg BID [facility] Administration Atorvastatin Calcium 10 mg 10/03/18 22:00 10/03/18 22:43 Lipitor - PO 10 mg HS [facility] Administration Bethanechol Chloride 25 mg 10/03/18 22:00 10/04/18 09:10 Urecholine - PO 25 mg QID [facility] Administration Chlorhexidine Gluconate 1 applic 10/03/18 22:00 10/03/18 22:43 Hibiclens For Decolonization - TP 1 applic HS [facility] Administration Collagenase 1 applic 10/04/18 10:00 Santyl - TP DAILY [facility] Protocol Docusate Sodium 200 mg 10/03/18 22:00 10/03/18 22:43 Colace - PO 200 mg HS [facility] Administration Docusate Sodium 100 mg 10/04/18 10:00 10/04/18 09:10 Colace - PO 100 mg DAILY [facility] Administration Diltiazem HCl 125 mg/ Sodium 125 mls @ 5 mls/hr 10/03/18 17:30 10/04/18 09:11 Chloride IVPB 10 mg/hr TITR [facility] 10 mls/hr Administration Protocol 5 MG/HR Ceftriaxone Sodium 1 mg/ 50 mls @ 100 mls/hr 10/04/18 09:54 Dextrose IVPB 10/04/18 10:23 DAILY ONE Metoprolol Succinate 25 mg 10/04/18 08:36 10/04/18 09:10 Toprol Xl - PO 25 mg DAILY [facility] Administration Mupirocin 1 applic 10/03/18 22:00 10/04/18 09:12 Bactroban Ointment (For Decolonization) - NS 10/08/18 21:59 1 applic BID [facility] Administration Ropinirole HCl 1 mg 10/04/18 10:00 Requip - PO DAILY [facility] Senna 2 tab 10/03/18 22:00 10/03/18 22:43 Senna - PO 2 tab HS [facility] Administration Timolol Maleate 1 drop 10/03/18 22:00 10/03/18 22:43 Timoptic 0.5% OU 1 drop BID [facility] Administration ASSESSMENT/PLAN: Mrs. Pittman is a 88 y/o female presenting with Afib with RVR and questionable infectious process. 1) Afib with RVR -Patient is in ICU on dilt drip (7.5) and toprol xl 25 QD; discussed with resident. Titrate off dilt drip and onto PO regimine; was on 30 BID PO at home. Pressures are borderline so need to be careful with negative inotropic agents. If she cannot tolerate PO -Defer ultimate management to cardio; appreicate thier input. -Careful fluid management given history of HFpEF -Continue home eliquis (age adjusted dose) 2) Elevated TSH -Check FT4 3) +UCx -UA; ?UTI? -Negative UA but positive Ucx with GNR. -Consult Dr. Best to see if continued abx needed -Difficult to tell if symptomatic but she 'hasnt been acting herself' which would be expected in a female with UTI. Will elect to proceed with caution as this could have triggered her RVR and empirically cover with ceftriaxone. No WBC, no fever. 4) ABDOUL on CKD -Cr now 1.4; likely prerenal as resolved with fluids -Continue monitoring UOP (?no urine but improved Cr?) and BMP 5) Dementia -Discuss with family regarding baseline prior to DC. If she does have a UTI she is at high risk for a toxic metabolic encephalopathy 6) HFpEF -Monitor closely with fluids; defer ultimate management to CV. Appreicate specialist input. 7) Glaucoma -Continue home eyedrops 8) HLD -Continue home meds 9) HTN -Hold PO meds to prevent drop in pressure; continue when clinically appropriate. 10) Infiltrate vs. atelectesis at [place] with h/o recent PNA -Pulm consulted by admitting team; appreciate input from Dr. Willoughby -On ceftriaxone now for ?UTI; abx per ID if they would like to expand. -Could consider CT to better delineate imaging findings on CXR but ultimately as specialty service is following will defer to them. Full Code Visit type - Emergency Visit Emergency Visit: No - New Patient This patient is new to me today: No - Critical Care Critical Care patient: No
[2018-10-04] MEDS ORDERED: COLLAGENASE CLOSTRIDIUM HIST. 30 GRAMS TUBE TP SCH (10:00)
[2018-10-04] MEDS ORDERED: DOCUSATE SODIUM 100 MG CAPSULE (FP) PO SCH (10:00)
[2018-10-04] MEDS ORDERED: rOPINIRole HCL 1 MG TABLET (FP) PO SCH ×2 (10:00→13:07)
[2018-10-04] MEDS ORDERED: ALLOPURINOL 100 MG TABLET (FP) PO SCH (10:00)
[2018-10-04] MEDS ORDERED: CEFTRIAXONE 1 GM in DEXTROSE 5%-WATER - 50 ML IVPB SCH (10:15)
[2018-10-04] MEDS ORDERED: DEXTROSE 5%-WATER - 50 ML IVPB ONE (11:23)
[2018-10-04] MEDS ORDERED: cefTRIAXone SODIUM 1 GM VIAL ONE (11:23)
[2018-10-04] MEDS: TIMOLOL 0.5% OPHTHALMIC SOL 5 ML BOTTLE OU SCH ×2 (11:30→21:35)
[2018-10-04] MEDS ORDERED: dilTIAZem HCL 30 MG TABLET (FP) PO SCH (11:30)
--- NOTE | 2018-10-04 13:02 | PN ---
Teaching Attending Note Name of Resident: Maria Elena Parada ATTENDING PHYSICIAN STATEMENT I saw and evaluated the patient. I reviewed the resident's note and discussed the case with the resident. I agree with the resident's findings and plan as documented. SUBJECTIVE: Patient seen and examined in the ICU. Awake and alert. Reports superficial left breast pain. Remains on IV Cardizem @ 10 mg for rate control. Intake & Output 10/01/18 10/02/18 10/03/18 10/04/18 23:59 23:59 23:59 23:59 Intake Total 405 1035 Output Total 300 800 Balance 105 235 Weight 133 lb 4.8 oz 133 lb 9.6 oz Last Vital Signs Temp Pulse Resp BP Pulse Ox 96.5 F L 103 H 21 H 101/61 98 10/04/18 10:00 10/04/18 10:00 10/04/18 10:00 10/04/18 10:00 10/04/18 09:00 Active Medications Acetaminophen (Tylenol -) 500 mg PO Q8H PRN PRN Reason: PAIN 1-3 Last Admin: 10/04/18 01:53 Dose: 500 mg Allopurinol (Zyloprim -) 100 mg PO DAILY [facility] Last Admin: 10/04/18 09:10 Dose: 100 mg Apixaban (Eliquis -) 2.5 mg PO BID [facility] Last Admin: 10/04/18 09:10 Dose: 2.5 mg Atorvastatin Calcium (Lipitor -) 10 mg PO HS [facility] Last Admin: 10/03/18 22:43 Dose: 10 mg Bethanechol Chloride (Urecholine -) 25 mg PO QID [facility] Last Admin: 10/04/18 09:10 Dose: 25 mg Chlorhexidine Gluconate (Hibiclens For Decolonization -) 1 applic TP HS [facility] Last Admin: 10/03/18 22:43 Dose: 1 applic Collagenase (Santyl -) 1 applic TP DAILY [facility]; Protocol Last Admin: 10/04/18 11:31 Dose: 1 applic Diltiazem HCl (Cardizem -) 90 mg PO BID [facility] Last Admin: 10/04/18 11:31 Dose: 90 mg Docusate Sodium (Colace -) 200 mg PO HS [facility] Last Admin: 10/03/18 22:43 Dose: 200 mg Docusate Sodium (Colace -) 100 mg PO DAILY [facility] Last Admin: 10/04/18 09:10 Dose: 100 mg Diltiazem HCl 125 mg/ Sodium (Chloride) 125 mls @ 5 mls/hr IVPB TITR [facility]; Protocol Last Admin: 10/04/18 09:11 Dose: 10 mg/hr, 10 mls/hr Ceftriaxone Sodium 1 gm/ (Dextrose) 50 mls @ 100 mls/hr IVPB DAILY [facility] Last Admin: 10/04/18 11:31 Dose: 100 mls/hr Metoprolol Succinate (Toprol Xl -) 25 mg PO DAILY [facility] Last Admin: 10/04/18 09:10 Dose: 25 mg Mupirocin (Bactroban Ointment (For Decolonization) -) 1 applic NS BID [facility] Stop: 10/08/18 21:59 Last Admin: 10/04/18 09:12 Dose: 1 applic Ropinirole HCl (Requip -) 1 mg PO DAILY [facility] Senna (Senna -) 2 tab PO HS [facility] Last Admin: 10/03/18 22:43 Dose: 2 tab Timolol Maleate (Timoptic 0.5%) 1 drop OU BID [facility] Last Admin: 10/04/18 11:30 Dose: 1 drop GENERAL: Awake, alert, and fully oriented, in no acute distress. HEAD: Normal with no signs of trauma. EYES: Pupils equal, round and reactive to light, conjunctiva clear. EARS, NOSE, THROAT: Ears normal, nares patent, oropharynx clear without exudates. dry mucous membranes. NECK: supple without lymphadenopathy, no JVD, LUNGS: Breath sounds equal, clear to auscultation bilaterally. No wheezes, and no crackles. No accessory muscle use. HEART: irrregular s1s2 normal ABDOMEN: Soft, nontender, not distended, normoactive bowel sounds, no guarding, no rebound, no masses. UPPER EXTREMITIES: 2+ pulses, warm, well-perfused. No peripheral edema. LOWER EXTREMITIES: warm, well-perfused. No calf tenderness. peripheral edema + . NEUROLOGICAL: Normal speech. PSYCHIATRIC: Cooperative. SKIN: Warm, dry, Laboratory Results - last 24 hr 10/03/18 10/03/18 10/03/18 11:15 11:16 12:19 WBC RBC Hgb Hct MCV MCH MCHC RDW Plt Count MPV Absolute Neuts (auto) Neutrophils % Lymphocytes % Monocytes % Eosinophils % Basophils % Nucleated RBC % PT with INR INR VBG pH 7.40 POC VBG pCO2 50.2 POC VBG pO2 34.8 Mixed VBG HCO3 30.7 H Sodium 141 Potassium 3.8 Chloride 103 Carbon Dioxide 29 Anion Gap 8 BUN 27 H Creatinine 1.7 H Creat Clearance w eGFR 28.30 Random Glucose 118 H Lactic Acid Calcium 8.7 Phosphorus Magnesium Total Bilirubin 0.6 AST 26 ALT 22 Alkaline Phosphatase 103 Creatine Kinase Troponin I < 0.02 Total Protein 6.0 L Albumin 3.1 L TSH Urine Color Yellow Urine Appearance Clear Urine pH 5.0 Ur Specific [place] 1.014 Urine Protein 1+ H D Urine Glucose (UA) Negative Urine Ketones Negative Urine Blood Negative Urine Nitrite Negative Urine Bilirubin Negative Urine Urobilinogen Negative Ur Leukocyte Esterase Negative Urine WBC (Auto) 1 Urine RBC (Auto) <1 Ur Epithelial Cells Rare Hyaline Casts 15 Urine Mucus Rare 10/03/18 10/03/18 10/04/18 18:34 19:54 05:30 WBC 8.5 RBC 3.50 L Hgb 9.6 L Hct 30.5 L MCV 87.4 MCH 27.6 MCHC 31.6 L RDW 18.0 H Plt Count 319 MPV 8.2 Absolute Neuts (auto) 5.5 Neutrophils % 64.6 Lymphocytes % 19.2 Monocytes % 14.6 H Eosinophils % 1.2 Basophils % 0.4 Nucleated RBC % 0 PT with INR INR VBG pH POC VBG pCO2 POC VBG pO2 Mixed VBG HCO3 Sodium Potassium Chloride Carbon Dioxide Anion Gap BUN Creatinine Creat Clearance w eGFR Random Glucose Lactic Acid Calcium Phosphorus Magnesium Total Bilirubin AST ALT Alkaline Phosphatase Creatine Kinase 14 L Troponin I < 0.02 Total Protein Albumin TSH 4.04 H Urine Color Urine Appearance Urine pH Ur Specific [place] Urine Protein Urine Glucose (UA) Urine Ketones Urine Blood Urine Nitrite Urine Bilirubin Urine Urobilinogen Ur Leukocyte Esterase Urine WBC (Auto) Urine RBC (Auto) Ur Epithelial Cells Hyaline Casts Urine Mucus 10/04/18 10/04/18 10/04/18 05:30 05:30 05:30 WBC RBC Hgb Hct MCV MCH MCHC RDW Plt Count MPV Absolute Neuts (auto) Neutrophils % Lymphocytes % Monocytes % Eosinophils % Basophils % Nucleated RBC % PT with INR 19.80 H INR 1.67 H VBG pH POC VBG pCO2 POC VBG pO2 Mixed VBG HCO3 Sodium 142 Potassium 3.5 Chloride 106 Carbon Dioxide 30 Anion Gap 6 L BUN 24 H Creatinine 1.4 H Creat Clearance w eGFR 35.41 Random Glucose 100 Lactic Acid 1.1 Calcium 8.3 L Phosphorus 4.6 Magnesium 1.9 Total Bilirubin 0.5 AST 24 ALT 21 Alkaline Phosphatase 99 Creatine Kinase Troponin I Total Protein 5.3 L Albumin 2.8 L TSH Urine Color Urine Appearance Urine pH Ur Specific [place] Urine Protein Urine Glucose (UA) Urine Ketones Urine Blood Urine Nitrite Urine Bilirubin Urine Urobilinogen Ur Leukocyte Esterase Urine WBC (Auto) Urine RBC (Auto) Ur Epithelial Cells Hyaline Casts Urine Mucus ASSESSMENT/PLAN: Rapid AFib on IV cardizem drip Relative Hypotension HTN HPL Vomiting (?) Sepsis ABDOUL CKD Empiric ABX Follow cultures O2 as needed PO rate control meds Wean IV Cardizem PO as tolerated Heat pack to left breast Eliquis Normal transfusion thresholds Follow I & O ICU monitoring Dr Major Critical care time spent in reviewing chart, evaluating patient and formulating plan - 36 minutes.
[2018-10-04 13:06] LABS: PREALBUMIN 9.5 mg/dl (20-40)
--- NOTE | 2018-10-04 13:06 | CON.ID ---
Consult Consult Specialty:: infectious diseases Referred by:: Reason for Consultation:: pneumonia,sepsis - History of Present Illness Chief Complaint: hypotension,sepsis History of Present Illness: patient hard of hearing and admitted to the icu her son is with her and who gave most of the history according to the notes 88-year-old female past medical history of A. fib on anticoagulation (Eliquis), anemia, CHF, dysphagia, hypertension, hyperlipidemia, dementia who came to the emergency department for weakness from couple of days. Her son stated that she has not been acting like herself since Monday and that she has felt more weak. He noticed at the [facility] her pulse was going up into the 130s since monday and BP was going down. Patient also reports that she had couple of episodes of vomiting in morning, denies blood in vomit and unable to tell quantity of vomit. Denies laine in abdomen, diarrhoea, fever and chills. Denies abdominal distension. Patient denies chest pain, shortness of breath or difficulty breathing. IN ER pt found to have rapid aflutter with rvr and got IV metoprolol x2 and cardiazem push . Pt had fall in BP after meds and got IV fluid which helped in her BP. Later on pt was started on cradiazem drip. Pt had also recieved toprol xl 25mg po in er. Pt also got vancomycin and ceftriaxone in er patient currently with stable bp and feeling better and also son in the room bp remaining stable - History Source History Provided By: Patient, Family Member Limitations to Obtaining History: Other (hard of hearing) - Past Medical History Cardio/Vascular: Yes: AFIB (New onset), CHF (diastolic CHF per records), HTN, Hyperlipdemia Musculoskeletal: Yes: Osteoarthritis Additional Medical History: Glaucoma - Past Surgical History Past Surgical History: Yes: Hysterectomy - Alcohol/Substance Use Hx Alcohol Use: No History of Substance Use: reports: None - Smoking History Smoking history: Unknown if ever smoked Have you smoked in the past 12 months: No Aproximately how many cigarettes per day: 0 Home Medications - Allergies Allergies/Adverse Reactions: Allergies Allergy/AdvReac Type Severity Reaction Status Date / Time amoxicillin Allergy Verified 10/03/18 11:11 - Home Medications Home Medications: Ambulatory Orders Simvastatin 20 mg PO HS 04/10/17 Timolol 0.5% [Timoptic 0.5%] 1 drop OU BID 04/10/17 Apixaban [Eliquis] 2.5 mg PO BID #28 tablet 04/14/17 Diltiazem [Cardizem -] 90 mg PO BID #90 tablet 08/22/18 Docusate Sodium [Colace -] 100 mg PO DAILY #30 capsule 08/22/18 Furosemide [Lasix -] 40 mg PO DAILY #60 tablet 08/22/18 Losartan Potassium [Cozaar -] 25 mg PO DAILY #30 tablet 08/22/18 Metoprolol Succinate [Toprol XL -] 25 mg PO DAILY #30 tab.sr.24h 08/22/18 Ropinirole HCl [Requip -] 1 mg PO DAILY #30 tablet 08/22/18 Acetaminophen [Extra Strength Non-Aspirin] 500 mg PO Q8H PRN 10/03/18 Allopurinol [Zyloprim -] 100 mg PO DAILY 10/03/18 Bethanechol Chloride [Urecholine -] 25 mg PO QID 10/03/18 Collagenase Clostridium Hist. [Santyl] 1 applic TP DAILY 10/03/18 Docusate Sodium [Colace] 200 mg PO HS 10/03/18 Lactobacillus Acidophilus [Bacid -] 1 each PO 10/03/18 Sennosides [Senna] 2 tab PO HS 10/03/18 Review of Systems - Review of Systems Constitutional: reports: No Symptoms Eyes: reports: No Symptoms HENT: reports: No Symptoms Neck: reports: No Symptoms Cardiovascular: reports: Other Respiratory: reports: No Symptoms Gastrointestinal: reports: No Symptoms Genitourinary: reports: No Symptoms Musculoskeletal: reports: No Symptoms Integumentary: reports: No Symptoms Neurological: reports: No Symptoms Endocrine: reports: No Symptoms Hematology/Lymphatic: reports: No Symptoms Psychiatric: reports: No Symptoms Physical Exam Vital Signs: Vital Signs Temperature 96.5 F L 10/04/18 10:00 Pulse Rate 103 H 10/04/18 10:00 Respiratory Rate 21 H 10/04/18 10:00 Blood Pressure 101/61 10/04/18 10:00 O2 Sat by Pulse Oximetry (%) 98 10/04/18 09:00 Constitutional: Yes: No Distress, Calm, Thin Eyes: Yes: Conjunctiva Clear Cardiovascular: Yes: Regular Rate and Rhythm Respiratory: Yes: Regular, CTA Bilaterally Gastrointestinal: Yes: Normal Bowel Sounds, Soft Musculoskeletal: Yes: WNL Extremities: Yes: WNL Neurological: Yes: Alert, Oriented Psychiatric: Yes: Alert, Oriented Labs: CBC, BMP 10/04/18 05:30 10/04/18 05:30 Imaging - Results Chest X-ray: Report Reviewed, Image Reviewed Ultrasound: Report Reviewed, Image Reviewed Assessment/Plan patient who was admitted with sepsis probably from uti and also suspicion of pneumonia now in icu setteling down required fluid was given abx Rapid AFib on IV cardizem drip Relative Hypotension HTN HPL Vomiting Sepsis ABDOUL CKD uti plan continue current mgmt patient currently on ceftriaxone will continue current abx and watch rest as per the icu nutrition cc 45 min
[2018-10-04] MEDS ORDERED: METOPROLOL TARTRATE 25 MG TABLET (FP) PO ONE ×2 (19:00→20:00)
[2018-10-04] MEDS: METOPROLOL TARTRATE 5 MG/5 ML VIAL IVPUSH PRN ×2 (19:47→21:26)
[2018-10-04] MEDS ORDERED: METOPROLOL TARTRATE 25 MG TABLET (FP) PO SCH ×2 (20:00→22:00)
[2018-10-04] MEDS: SENNOSIDES 8.6MG TABLET (FP) PO SCH (21:29)
[2018-10-04] MEDS: DOCUSATE SODIUM 100 MG CAPSULE (FP) PO SCH (21:29)
[2018-10-04] MEDS: ATORVASTATIN CA 10 MG TABLET (FP) PO SCH (21:29)
[2018-10-04] MEDS: rOPINIRole HCL 1 MG TABLET (FP) PO SCH (21:30)
[2018-10-04] MEDS ORDERED: MUPIROCIN 2% TOPICAL OINTMENT FOR DECOLONIZATION NS SCH (22:00)
[2018-10-04] MEDS ORDERED: dilTIAZem HCL 25 MG/5 ML - 5 ML VIAL IVPUSH ONE (22:30)
[2018-10-05] MEDS: DILTIAZEM INJECTION 125 MG in DEXTROSE 5%-WATER - 100 ML IVPB SCH (00:56)
[2018-10-05 07:27] LABS: BASO % 0.3 % (0-2.0); EOS % 0.1 % (0-4.5); HEMATOCRIT 30.4 % (32.4-45.2); HEMOGLOBIN 10.1 GM/dL (10.7-15.3); LYMPH % 18.4 % (8-40); MCHC 33.4 g/dl (32.0-36.0); MEAN CELL VOLUME 86.8 fl (80-96); MEAN PLT VOLUME 8.4 fl (7.5-11.1); MONO % 7.7 % (3.8-10.2); NEUT % 73.5 % (42.8-82.8); PLATELET COUNT 391 K/MM3 (134-434); RDW 18.2 % (11.6-15.6); WHITE BLOOD COUNT 7.5 K/mm3 (4.0-10.0)
[2018-10-05 08:17] LABS: ALBUMIN 2.7 g/dl (3.4-5.0); ALK PHOS 106 U/L (45-117); ANION GAP 17 MMOL/L (8-16); BILIRUBIN,TOTAL 0.8 mg/dL (0.2-1); BLOOD UREA NITROGEN 28 mg/dL (7-18); CHLORIDE 107 mmol/L (98-107); CO2 19 mmol/L (21-32); CREATININE 1.4 mg/dL (0.55-1.3); GLUCOSE,RANDOM 102 mg/dL (74-106); MAGNESIUM 1.6 mg/dL (1.8-2.4); PHOSPHOROUS 4.6 mg/dL (2.5-4.9); POTASSIUM 3.9 mmol/L (3.5-5.1); SGOT/AST 25 U/L (15-37); SGPT/ALT 25 U/L (13-61); SODIUM 143 mmol/L (136-145); TOT PROT 5.9 g/dl (6.4-8.2)
[2018-10-05] MEDS ORDERED: cefTRIAXone SODIUM 1 GM VIAL ONE (09:31)
[2018-10-05] MEDS ORDERED: DEXTROSE 5%-WATER - 50 ML IVPB ONE (09:31)
[2018-10-05 09:34] LABS: CALCIUM 8.9 mg/dL (8.5-10.1)
[2018-10-05] MEDS: APIXABAN 2.5 MG TABLET PO SCH ×3 (09:43→23:10)
[2018-10-05] MEDS: BETHANECHOL CHLORIDE 25 MG TABLET PO SCH ×5 (09:43→22:00)
[2018-10-05] MEDS: ALLOPURINOL 100 MG TABLET (FP) PO SCH (09:43)
[2018-10-05] MEDS: CEFTRIAXONE 1 GM in DEXTROSE 5%-WATER - 50 ML IVPB SCH (09:43)
[2018-10-05] MEDS: METOPROLOL TARTRATE 50 MG TABLET (FP) PO SCH ×3 (09:45→22:00)
[2018-10-05] MEDS: DOCUSATE SODIUM 100 MG CAPSULE (FP) PO SCH ×3 (09:45→23:12)
[2018-10-05] MEDS ORDERED: PT OWN MED DRAWER 7, Y5N ONE ×4 (10:22→21:59)
[2018-10-05] MEDS: TIMOLOL 0.5% OPHTHALMIC SOL 5 ML BOTTLE OU SCH ×2 (10:24→21:35)
[2018-10-05] MEDS: COLLAGENASE CLOSTRIDIUM HIST. 30 GRAMS TUBE TP SCH (10:25)
--- NOTE | 2018-10-05 11:32 | PN ---
Progress Note, Physician History of Present Illness: PULMONARY ALERT,NO DISTRESS,LESS SOB,-CP - Current Medication List Current Medications: Active Medications Acetaminophen (Tylenol -) 500 mg PO Q8H PRN PRN Reason: PAIN 1-3 Allopurinol (Zyloprim -) 100 mg PO DAILY [facility] Last Admin: 10/05/18 09:43 Dose: 100 mg Apixaban (Eliquis -) 2.5 mg PO BID [facility] Last Admin: 10/05/18 09:43 Dose: 2.5 mg Atorvastatin Calcium (Lipitor -) 10 mg PO HS [facility] Last Admin: 10/04/18 21:29 Dose: 10 mg Bethanechol Chloride (Urecholine -) 25 mg PO QID [facility] Last Admin: 10/05/18 09:43 Dose: 25 mg Collagenase (Santyl -) 1 applic TP DAILY [facility]; Protocol Last Admin: 10/05/18 10:25 Dose: 1 applic Diltiazem HCl (Cardizem Cd -) 120 mg PO DAILY [facility] Last Admin: 10/05/18 09:43 Dose: 120 mg Docusate Sodium (Colace -) 200 mg PO HS [facility] Last Admin: 10/04/18 21:29 Dose: 200 mg Docusate Sodium (Colace -) 100 mg PO DAILY [facility] Last Admin: 10/05/18 09:45 Dose: 100 mg Ceftriaxone Sodium 1 gm/ (Dextrose) 50 mls @ 100 mls/hr IVPB DAILY [facility] Last Admin: 10/05/18 09:43 Dose: 100 mls/hr Diltiazem HCl 125 mg/ Dextrose 125 mls @ 5 mls/hr IVPB TITR [facility]; Protocol Last Titration: 10/05/18 01:48 Dose: 10 mg/hr, 10 mls/hr Metoprolol Tartrate (Lopressor -) 50 mg PO BID [facility] Last Admin: 10/05/18 09:45 Dose: 50 mg Metoprolol Tartrate (Lopressor Injection -) 5 mg IVPUSH Q4H PRN PRN Reason: HR >40 Last Admin: 10/04/18 21:26 Dose: 5 mg Ropinirole HCl (Requip -) 1 mg PO HS [facility] Last Admin: 10/04/18 21:30 Dose: 1 mg Senna (Senna -) 2 tab PO HS [facility] Last Admin: 10/04/18 21:29 Dose: 2 tab Timolol Maleate (Timoptic 0.5%) 1 drop OU BID [facility] Last Admin: 10/05/18 10:24 Dose: 1 drop - Objective Vital Signs: Vital Signs Temperature 97.8 F 10/05/18 08:00 Pulse Rate 115 H 10/05/18 08:00 Respiratory Rate 22 H 10/05/18 08:00 Blood Pressure 118/64 10/05/18 08:00 O2 Sat by Pulse Oximetry (%) 98 10/04/18 20:40 Constitutional: Yes: Well Nourished, Calm Eyes: Yes: WNL HENT: Yes: WNL Neck: Yes: WNL Cardiovascular: Yes: Tachycardia, Pulse Irregular, S1, S2 Respiratory: Yes: Diminished Gastrointestinal: Yes: Normal Bowel Sounds, Soft Extremities: Yes: WNL Edema: No Labs: CBC, BMP 10/05/18 05:30 10/05/18 05:30 INR, PTT INR 1.67 (0.83-1.09) H 10/04/18 05:30 Assessment/Plan ASSESSMENT/PLAN: Rapid AFib on IV cardizem drip Relative Hypotension improved HTN HPL Vomiting (?) Sepsis ABDOUL CKD ABX as per cardiology O2 as needed rate control meds as per Cardiology IV Cardizem as per Cardiology PO as tolerated Heat pack to left breast Eliquis Normal transfusion thresholds Follow I & O DR GODDARD
--- NOTE | 2018-10-05 12:15 | PN ---
Physical Exam: SUBJECTIVE: Patient seen and examined. Denies pain OBJECTIVE: Vital Signs Period Temp Pulse Resp BP Sys/Kraus Pulse Ox Last 24 Hr 97.7 F-98.0 F 68-146 18-22 98-140/44-84 98 GENERAL: Elderly, frail, awake, alert to person only HEAD: Normal with no signs of trauma. EYES: Extraocular movements intact, sclera anicteric, conjunctiva clear. No lid lag. EARS, NOSE, THROAT: Ears normal, nares patent NECK: Normal range of motion, supple LUNGS: Diminished breath sounds, no wheezing. No accessory muscle use. HEART: Irregularly irregular, tachycardic, no murmurs appreciated ABDOMEN: Soft, nontender, not distended, normoactive bowel sounds, no guarding, no rebound, no masses. No hepatomegaly or splenomegaly. MUSCULOSKELETAL: Normal range of motion at all joints. Enlarged knees . No CVA tenderness. LOWER EXTREMITIES: R>L leg, non-pitting, warm, well-perfused. No calf tenderness. NEUROLOGICAL: No facial droop, tongue midline PSYCHIATRIC: Appears anxious SKIN: Warm, dry Laboratory Results - last 24 hr 10/04/18 10/05/18 10/05/18 05:30 05:30 05:30 WBC 7.5 RBC 3.50 L Hgb 10.1 L Hct 30.4 L MCV 86.8 MCH 29.0 MCHC 33.4 RDW 18.2 H Plt Count 391 D MPV 8.4 Absolute Neuts (auto) 5.5 Neutrophils % 73.5 Lymphocytes % 18.4 Monocytes % 7.7 Eosinophils % 0.1 D Basophils % 0.3 Nucleated RBC % 0 Sodium 143 Potassium 3.9 Chloride 107 Carbon Dioxide 19 L Anion Gap 17 H BUN 28 H Creatinine 1.4 H Creat Clearance w eGFR 35.41 Random Glucose 102 Calcium 8.9 Phosphorus 4.6 Magnesium 1.6 L Total Bilirubin 0.8 AST 25 ALT 25 Alkaline Phosphatase 106 Total Protein 5.9 L Albumin 2.7 L Prealbumin 9.5 L Free T4 0.99 Active Medications Generic Name Dose Route Start Last Admin Trade Name Freq PRN Reason Stop Dose Admin Acetaminophen 500 mg 10/04/18 17:12 Tylenol - PO Q8H PRN PAIN 1-3 Allopurinol 100 mg 10/05/18 10:00 10/05/18 09:43 Zyloprim - PO 100 mg DAILY [facility] Administration Apixaban 2.5 mg 10/04/18 22:00 10/05/18 09:43 Eliquis - PO 2.5 mg BID [facility] Administration Atorvastatin Calcium 10 mg 10/04/18 22:00 10/04/18 21:29 Lipitor - PO 10 mg HS [facility] Administration Bethanechol Chloride 25 mg 10/04/18 18:00 10/05/18 09:43 Urecholine - PO 25 mg QID [facility] Administration Collagenase 1 applic 10/05/18 10:00 10/05/18 10:25 Santyl - TP 1 applic DAILY [facility] Administration Protocol Diltiazem HCl 120 mg 10/05/18 10:00 10/05/18 09:43 Cardizem Cd - PO 120 mg DAILY [facility] Administration Docusate Sodium 200 mg 10/04/18 22:00 10/04/18 21:29 Colace - PO 200 mg HS [facility] Administration Docusate Sodium 100 mg 10/05/18 10:00 10/05/18 09:45 Colace - PO 100 mg DAILY [facility] Administration Ceftriaxone Sodium 1 gm/ 50 mls @ 100 mls/hr 10/05/18 10:00 10/05/18 09:43 Dextrose IVPB 100 mls/hr DAILY [facility] Administration Diltiazem HCl 125 mg/ Dextrose 125 mls @ 5 mls/hr 10/05/18 00:30 10/05/18 01: 48 IVPB 10 mg/hr TITR [facility] 10 mls/hr Titration Protocol 5 MG/HR Metoprolol Tartrate 50 mg 10/05/18 10:00 10/05/18 09:45 Lopressor - PO 50 mg BID [facility] Administration Metoprolol Tartrate 5 mg 10/04/18 18:52 10/04/18 21:26 Lopressor Injection - IVPUSH 5 mg Q4H PRN Administration HR >40 Ropinirole HCl 1 mg 10/04/18 22:00 10/04/18 21:30 Requip - PO 1 mg HS [facility] Administration Senna 2 tab 10/04/18 22:00 10/04/18 21:29 Senna - PO 2 tab HS [facility] Administration Timolol Maleate 1 drop 10/04/18 22:00 10/05/18 10:24 Timoptic 0.5% OU 1 drop BID [facility] Administration Assessment & Plan: 88 year old female with a PMH significant for A-fib (on Eliquis), diastolic CHF , HTN, HLD, gout, glaucoma, osteoarthritis presented to the ED from sub acute rehab with elevated pulse in the 130s since Monday. She was seen by cardiology in the ED; A-fib with RVR and questionable infectious process. Afib with RVR - Discharged ICU now on telemetry floor - Cardizem - IV drip at 5 mg/hr - 120 PO q day - Continue home medications: - Metoprolol Tartrate 50 mg PO bid - Eliquis 2.5 mg PO BID - Followed by cardiology Elevated TSH - 4.04 - FT4 WNL 0.99 Possible UTI - Negative UA but positive urine culture with M. morganii - Followed by ID specialist Dr. Best - Ceftriaxone 1 GM qday ABDOUL on CKD - Improved - Cr now 1.4 (Baseline Cr 1.2 - 1.4) - Renal US negative for hydronephrosis, b/l atrophy, unchanged from 07/19/17 study - Likely prerenal as resolved with fluids - Monitor BMP and urinary output HTN - Hold home Losartan 25 mg PO qday to prevent drop in pressure; continue when clinically appropriate. Infiltrate vs. atelectesis at L base - Hospitalized in [facility] 1 month ago and treated for sepsis with 10 day course of Levaquin. - Followed by [employer] Dr. Willoughby - O2 via NC @ 2 LPM Diastolic CHF - HOLD home Lasix 40 gm PO qday HLD - Atorvastatin 10 mg PO qhs Right heel pressure ulcer - Daily wound care with Santyl - Offload pressure to heel Gout - Allopurinol 100 mg PO qday Glaucoma - Timolol 0.5% 1 gtt OU BID Urinary Retention - Bethanechol Chloride 25 mg PO QID Restless leg syndrome - Continue Ropinirole 1 mg PO qday Pain Management - Actaminophen 500 mg PO q8h PRN Bowel regimen - Colace 100 mg qam, 200 mg QHS - Senna 2 tabs PO qhs Prophylaxis - DVT: On Eliquis 2.5 mg PO BID FEN - PO intake adequate - Replete as indicated - Sodium controlled diet Disp: Patient requires further in patient monitoring. DNR/DNI Visit type - Emergency Visit Emergency Visit: No - New Patient This patient is new to me today: No - Critical Care Critical Care patient: No
--- NOTE | 2018-10-05 13:15 | PN ---
Progress Note, Physician History of Present Illness: patient stable doing well - Current Medication List Current Medications: Active Medications Acetaminophen (Tylenol -) 500 mg PO Q8H PRN PRN Reason: PAIN 1-3 Allopurinol (Zyloprim -) 100 mg PO DAILY [facility] Last Admin: 10/05/18 09:43 Dose: 100 mg Apixaban (Eliquis -) 2.5 mg PO BID [facility] Last Admin: 10/05/18 09:43 Dose: 2.5 mg Atorvastatin Calcium (Lipitor -) 10 mg PO HS [facility] Last Admin: 10/04/18 21:29 Dose: 10 mg Bethanechol Chloride (Urecholine -) 25 mg PO QID [facility] Last Admin: 10/05/18 09:43 Dose: 25 mg Collagenase (Santyl -) 1 applic TP DAILY [facility]; Protocol Last Admin: 10/05/18 10:25 Dose: 1 applic Diltiazem HCl (Cardizem Cd -) 120 mg PO DAILY [facility] Last Admin: 10/05/18 09:43 Dose: 120 mg Docusate Sodium (Colace -) 200 mg PO HS [facility] Last Admin: 10/04/18 21:29 Dose: 200 mg Docusate Sodium (Colace -) 100 mg PO DAILY [facility] Last Admin: 10/05/18 09:45 Dose: 100 mg Ceftriaxone Sodium 1 gm/ (Dextrose) 50 mls @ 100 mls/hr IVPB DAILY [facility] Last Admin: 10/05/18 09:43 Dose: 100 mls/hr Diltiazem HCl 125 mg/ Dextrose 125 mls @ 5 mls/hr IVPB TITR [facility]; Protocol Last Titration: 10/05/18 01:48 Dose: 10 mg/hr, 10 mls/hr Metoprolol Tartrate (Lopressor -) 50 mg PO BID [facility] Last Admin: 10/05/18 09:45 Dose: 50 mg Metoprolol Tartrate (Lopressor Injection -) 5 mg IVPUSH Q4H PRN PRN Reason: HR >40 Last Admin: 10/04/18 21:26 Dose: 5 mg Ropinirole HCl (Requip -) 1 mg PO HS [facility] Last Admin: 10/04/18 21:30 Dose: 1 mg Senna (Senna -) 2 tab PO HS [facility] Last Admin: 10/04/18 21:29 Dose: 2 tab Timolol Maleate (Timoptic 0.5%) 1 drop OU BID [facility] Last Admin: 10/05/18 10:24 Dose: 1 drop - Objective Vital Signs: Vital Signs Temperature 97.7 F 10/05/18 10:00 Pulse Rate 86 10/05/18 12:00 Respiratory Rate 20 10/05/18 12:00 Blood Pressure 111/64 10/05/18 12:00 O2 Sat by Pulse Oximetry (%) 98 10/05/18 09:00 Constitutional: Yes: No Distress, Calm, Thin, Other (failure to thrive) Cardiovascular: Yes: Regular Rate and Rhythm Respiratory: Yes: Regular, CTA Bilaterally Gastrointestinal: Yes: Normal Bowel Sounds, Soft Musculoskeletal: Yes: WNL Extremities: Yes: Other Neurological: Yes: Alert, Oriented Psychiatric: Yes: Alert, Oriented Labs: CBC, BMP 10/05/18 05:30 10/05/18 05:30 INR, PTT INR 1.67 (0.83-1.09) H 10/04/18 05:30 Assessment/Plan AFib Hypotension HTN HPL Vomiting Sepsis ABDOUL CKD uti cx results noted plan continue ceftriaxone nutrition rest as per the team d/w the son
[2018-10-05] MEDS ORDERED: MAGNESIUM SULF 50% (8.12 MEQ/2 ML-1 GM VIAL) IVPB ONE (18:27)
[2018-10-05] MEDS ORDERED: MELATONIN 1 MG TABLET PO ONE (20:56)
[2018-10-05] MEDS: ATORVASTATIN CA 10 MG TABLET (FP) PO SCH ×2 (21:35→22:00)
[2018-10-05] MEDS: SENNOSIDES 8.6MG TABLET (FP) PO SCH ×2 (21:35→22:00)
[2018-10-05] MEDS: rOPINIRole HCL 1 MG TABLET (FP) PO SCH ×2 (22:00→22:40)
--- NOTE | 2018-10-05 23:11 | PN ---
Progress Note, Physician Chief Complaint: Pt alert; lying in bed; denies chest pain or palpitations; weak. History of Present Illness: Patient is an 88-year-old white female with past medical history of A. fib on anticoagulation (metoprolol; diltiazem; Eliquis), anemia, mild systolic CHF, dysphagia, hypertension, hyperlipidemia, dementia who presents to the emergency department today for weakness. Her son states that she has not been acting like herself since Monday and that she has felt more weak. He noticed at the retirement her pulse was going up into the 130s since Monday. Patient denies chest pain, shortness of breath or difficulty breathing. She states that she feels fine and wants to go home. Triage vital signs notable for pulse of 147, blood pressure of 105/71, pulse ox of 96. Rectal temperature is 90.7 - Current Medication List Current Medications: Active Medications Acetaminophen (Tylenol -) 500 mg PO Q8H PRN PRN Reason: PAIN 1-3 Allopurinol (Zyloprim -) 100 mg PO DAILY [facility] Last Admin: 10/05/18 09:43 Dose: 100 mg Apixaban (Eliquis -) 2.5 mg PO BID [facility] Last Admin: 10/05/18 09:43 Dose: 2.5 mg Atorvastatin Calcium (Lipitor -) 10 mg PO HS [facility] Last Admin: 10/05/18 21:35 Dose: 10 mg Bethanechol Chloride (Urecholine -) 25 mg PO QID [facility] Last Admin: 10/05/18 21:34 Dose: 25 mg Collagenase (Santyl -) 1 applic TP DAILY [facility]; Protocol Last Admin: 10/05/18 10:25 Dose: 1 applic Diltiazem HCl (Cardizem Cd -) 120 mg PO DAILY [facility] Last Admin: 10/05/18 09:43 Dose: 120 mg Docusate Sodium (Colace -) 200 mg PO HS [facility] Last Admin: 10/04/18 21:29 Dose: 200 mg Docusate Sodium (Colace -) 100 mg PO DAILY [facility] Last Admin: 10/05/18 09:45 Dose: 100 mg Ceftriaxone Sodium 1 gm/ (Dextrose) 50 mls @ 100 mls/hr IVPB DAILY [facility] Last Admin: 10/05/18 09:43 Dose: 100 mls/hr Diltiazem HCl 125 mg/ Dextrose 125 mls @ 5 mls/hr IVPB TITR [facility]; Protocol Last Titration: 10/05/18 13:00 Dose: 5 mg/hr, 5 mls/hr Metoprolol Tartrate (Lopressor -) 50 mg PO BID [facility] Last Admin: 10/05/18 21:35 Dose: 50 mg Metoprolol Tartrate (Lopressor Injection -) 5 mg IVPUSH Q4H PRN PRN Reason: HR >40 Last Admin: 10/04/18 21:26 Dose: 5 mg Ropinirole HCl (Requip -) 1 mg PO HS [facility] Last Admin: 10/05/18 22:40 Dose: 1 mg Senna (Senna -) 2 tab PO HS [facility] Last Admin: 10/05/18 21:35 Dose: 2 tab Timolol Maleate (Timoptic 0.5%) 1 drop OU BID [facility] Last Admin: 10/05/18 21:35 Dose: 1 drop - Objective Vital Signs: Vital Signs Temperature 97.8 F 10/05/18 14:00 Pulse Rate 95 H 10/05/18 16:00 Respiratory Rate 20 10/05/18 16:00 Blood Pressure 111/49 L 10/05/18 16:00 O2 Sat by Pulse Oximetry (%) 98 10/05/18 09:00 Constitutional: Yes: Calm Eyes: Yes: WNL HENT: Yes: WNL Neck: Yes: WNL Cardiovascular: Yes: Pulse Irregular, S1 (varies in intensity), S2 Respiratory: Yes: Regular Gastrointestinal: Yes: Soft ...Rectal Exam: Yes: Deferred Genitourinary: No: Anuria Breast(s): Yes: WNL Musculoskeletal: Yes: Muscle Weakness Extremities: Yes: Cool Edema: No Peripheral Pulses WNL: Yes Integumentary: Yes: WNL Neurological: Yes: Alert, Weakness Psychiatric: Yes: Other (anxiety) Labs: CBC, BMP 10/05/18 05:30 10/05/18 05:30 INR, PTT INR 1.67 (0.83-1.09) H 10/04/18 05:30 Abnormal Lab Results 10/05/18 10/05/18 05:30 05:30 RBC 3.50 L Hgb 10.1 L Hct 30.4 L RDW 18.2 H Carbon Dioxide 19 L Anion Gap 17 H BUN 28 H Creatinine 1.4 H Magnesium 1.6 L Total Protein 5.9 L Albumin 2.7 L - ....Imaging Other: Other (telemetry: atrial flutter; periods of RVR) Problem List - Problems (1) Acute on chronic systolic and diastolic heart failure, NYHA class 1 Assessment/Plan: ECHO: mildly reduced LVEF; moderate TR with RVSP at least 40 mmHg; moderate LAE ; mild SAAD; mild MR and NH; small pericardial effusion; + pleural effusion. On metoprolol. Add ACEI or ARB when renal function (presently reduced) and BP allow. F/u BUN/Cr, electrolytes, Is and Os, daily weight. Code(s): I50.43 - ACUTE ON CHRONIC COMBINED SYSTOLIC AND DIASTOLIC HRT FAIL (2) Atrial fibrillation with RVR Assessment/Plan: Increased metoprolol to 50 mg bid. On diltiazem CD 120 mg daily; taper off diltiazem IV drip. If AF remains refractory to the above, will have to consider amiodarone. On apixaban for anticoagulation. TSH mildly elevated; normal Free T4. Maintain electrolytes (keep K 4-4.5, Mg 2-2.4; PO4 2.5-4.9). Code(s): I48.91 - UNSPECIFIED ATRIAL FIBRILLATION (3) Shortness of breath Code(s): R06.02 - SHORTNESS OF BREATH (4) Weakness Code(s): R53.1 - WEAKNESS (5) Chronic kidney disease Code(s): N18.9 - CHRONIC KIDNEY DISEASE, UNSPECIFIED Qualifiers: Chronic kidney disease stage: stage 2 (mild) Qualified Code(s): N18.2 - Chronic kidney disease, stage 2 (mild) (6) Hypercholesterolemia Assessment/Plan: On atorvastatin; total cholesterol 96 mg/dL (02/2018). Code(s): E78.00 - PURE HYPERCHOLESTEROLEMIA, UNSPECIFIED (7) Osteoarthritis Code(s): M19.90 - UNSPECIFIED OSTEOARTHRITIS, UNSPECIFIED SITE Qualifiers: Osteoarthritis location: knee Osteoarthritis type: unspecified Laterality : right Qualified Code(s): M17.11 - Unilateral primary osteoarthritis, right knee (8) Hypomagnesemia Assessment/Plan: replete, and keep 2.0-2.4 Keep K 4-4.5; PO4 2.5-4.9. Code(s): E83.42 - HYPOMAGNESEMIA
[2018-10-06] MEDS: METOPROLOL TARTRATE 5 MG/5 ML VIAL IVPUSH PRN (05:33)
[2018-10-06 08:20] LABS: HEMATOCRIT 30.2 % (32.4-45.2); HEMOGLOBIN 9.4 GM/dL (10.7-15.3); MCH 27.2 pg (25.7-33.7); MCHC 31.2 g/dl (32.0-36.0); MEAN CELL VOLUME 87.2 fl (80-96); MEAN PLT VOLUME 8.1 fl (7.5-11.1); PLATELET COUNT 364 K/MM3 (134-434); RBC 3.46 M/mm3 (3.60-5.2); RDW 18.3 % (11.6-15.6); WHITE BLOOD COUNT 7.1 K/mm3 (4.0-10.0)
[2018-10-06] MEDS ORDERED: PT OWN MED DRAWER 7, Y5N ONE ×3 (09:01→20:52)
[2018-10-06] MEDS ORDERED: cefTRIAXone SODIUM 1 GM VIAL ONE (09:01)
[2018-10-06] MEDS ORDERED: DEXTROSE 5%-WATER - 50 ML IVPB ONE (09:02)
[2018-10-06 09:17] LABS: ANION GAP 12 MMOL/L (8-16); BLOOD UREA NITROGEN 24 mg/dL (7-18); CALCIUM 8.9 mg/dL (8.5-10.1); CHLORIDE 110 mmol/L (98-107); CO2 26 mmol/L (21-32); CREATININE 1.5 mg/dL (0.55-1.3); GLUCOSE,RANDOM 91 mg/dL (74-106); MAGNESIUM 2.8 mg/dL (1.8-2.4); POTASSIUM 3.6 mmol/L (3.5-5.1); SODIUM 148 mmol/L (136-145)
[2018-10-06] MEDS: APIXABAN 2.5 MG TABLET PO SCH ×2 (09:18→21:05)
[2018-10-06] MEDS: BETHANECHOL CHLORIDE 25 MG TABLET PO SCH ×4 (09:18→21:04)
[2018-10-06] MEDS: DOCUSATE SODIUM 100 MG CAPSULE (FP) PO SCH ×2 (09:18→21:05)
[2018-10-06] MEDS: ALLOPURINOL 100 MG TABLET (FP) PO SCH (09:18)
[2018-10-06] MEDS: CEFTRIAXONE 1 GM in DEXTROSE 5%-WATER - 50 ML IVPB SCH (09:18)
[2018-10-06] MEDS: METOPROLOL TARTRATE 50 MG TABLET (FP) PO SCH ×3 (09:18→21:06)
[2018-10-06] MEDS: TIMOLOL 0.5% OPHTHALMIC SOL 5 ML BOTTLE OU SCH ×2 (10:15→22:00)
[2018-10-06] MEDS: COLLAGENASE CLOSTRIDIUM HIST. 30 GRAMS TUBE TP SCH (10:15)
[2018-10-06] MEDS: DILTIAZEM INJECTION 125 MG in DEXTROSE 5%-WATER - 100 ML IVPB SCH (11:30)
--- NOTE | 2018-10-06 12:15 | PN ---
Progress Note (short form) - Note Progress Note: Subjective: --Remained in atrial fibrillation with rapid ventricular response overnight (HR 130-140s) --No complaints, discussed plan with son at bedside Objective: Vital Signs 10/06/18 10/06/18 10/06/18 05:33 05:34 07:00 Temperature G 97.9 F Pulse Rate 154 H 154 H 110 H Respiratory 20 20 Rate Blood Pressure 129/63 129/63 110/52 L 10/06/18 10/06/18 09:20 11:30 Temperature Pulse Rate 82 136 H Respiratory Rate Blood Pressure 89/45 L 97/68 Gen: elderly female in NAD HEENT: NC Cardiac: irreg, irreg. tachycardic. S1/S2 no murmurs Pulm: clear breath sounds Ext: WWP. No edema Labs: Abnormal Lab Results 10/06/18 10/06/18 05:40 05:40 RBC 3.46 L Hgb 9.4 L Hct 30.2 L MCHC 31.2 L RDW 18.3 H Sodium 148 H Chloride 110 H BUN 24 H Creatinine 1.5 H Magnesium 2.8 H Active Medications Acetaminophen (Tylenol -) 500 mg PO Q8H PRN PRN Reason: PAIN 1-3 Allopurinol (Zyloprim -) 100 mg PO DAILY [facility] Last Admin: 10/06/18 09:18 Dose: 100 mg Apixaban (Eliquis -) 2.5 mg PO BID [facility] Last Admin: 10/06/18 09:18 Dose: 2.5 mg Atorvastatin Calcium (Lipitor -) 10 mg PO [facility] Last Admin: 10/05/18 22:00 Dose: Not Given Bethanechol Chloride (Urecholine -) 25 mg PO QID [facility] Last Admin: 10/06/18 09:18 Dose: 25 mg Collagenase (Santyl -) 1 applic TP DAILY [facility]; Protocol Last Admin: 10/05/18 10:25 Dose: 1 applic Diltiazem HCl (Cardizem Cd -) 120 mg PO DAILY [facility] Last Admin: 10/06/18 09:18 Dose: 120 mg Docusate Sodium (Colace -) 200 mg PO HS [facility] Last Admin: 10/05/18 23:12 Dose: Not Given Docusate Sodium (Colace -) 100 mg PO DAILY [facility] Last Admin: 10/06/18 09:18 Dose: 100 mg Ceftriaxone Sodium 1 gm/ (Dextrose) 50 mls @ 100 mls/hr IVPB DAILY [facility] Last Admin: 10/06/18 09:18 Dose: 100 mls/hr Diltiazem HCl 125 mg/ Dextrose 125 mls @ 5 mls/hr IVPB TITR [facility]; Protocol Last Admin: 10/06/18 11:30 Dose: 5 mg/hr, 5 mls/hr Metoprolol Tartrate (Lopressor -) 50 mg PO BID [facility] Last Admin: 10/06/18 09:18 Dose: 50 mg Metoprolol Tartrate (Lopressor Injection -) 5 mg IVPUSH Q4H PRN PRN Reason: HR >40 Last Admin: 10/06/18 05:33 Dose: 5 mg Ropinirole HCl (Requip -) 1 mg PO HS [facility] Last Admin: 10/05/18 22:00 Dose: Not Given Senna (Senna -) 2 tab PO HS [facility] Last Admin: 10/05/18 22:00 Dose: Not Given Timolol Maleate (Timoptic 0.5%) 1 drop OU BID [facility] Last Admin: 10/05/18 21:35 Dose: 1 drop A/P; 88 year old female with history of hypertension, atrial fibrillatio on apixaban admitted with atrial fibrillation with RVR in setting of likely infection on abx with ID following. #Atrial Fibrillation with RVR Etiology: likely infectious trigger Workup: --echocardiogram once heart rate better controlled --telemetry atrial fibrillation with RVR, HR 110s Treatment: --continue to wean dilt gtt (hold if BP<90) --start digoxin with load (please dose with pharmacy assistance) and start metoprolol tartrate 25mg q6hrs --continue to treat underlying infection --consider starting amiodarone if HR does not improve over next 24-48 hours We will continue to follow. Moses Simmons MD
--- NOTE | 2018-10-06 13:22 | PN ---
Progress Note (short form) - Note Progress Note: Resting in NAD. No CP or SOB. Rapid Afib but asymptomatic. Intake & Output 10/03/18 10/04/18 10/05/18 10/06/18 23:59 23:59 23:59 23:59 Intake Total 405 2090 315 40 Output Total 300 1000 Balance 105 1090 315 40 Weight 133 lb 4.8 oz 133 lb 9.6 oz Last Vital Signs Temp Pulse Resp BP Pulse Ox 98.2 F 136 H 20 97/68 98 10/06/18 09:00 10/06/18 11:30 10/06/18 11:00 10/06/18 11:30 10/06/18 09:00 Active Medications Acetaminophen (Tylenol -) 500 mg PO Q8H PRN PRN Reason: PAIN 1-3 Allopurinol (Zyloprim -) 100 mg PO DAILY [facility] Last Admin: 10/06/18 09:18 Dose: 100 mg Apixaban (Eliquis -) 2.5 mg PO BID [facility] Last Admin: 10/06/18 09:18 Dose: 2.5 mg Atorvastatin Calcium (Lipitor -) 10 mg PO HS [facility] Last Admin: 10/05/18 22:00 Dose: Not Given Bethanechol Chloride (Urecholine -) 25 mg PO QID [facility] Last Admin: 10/06/18 09:18 Dose: 25 mg Collagenase (Santyl -) 1 applic TP DAILY [facility]; Protocol Last Admin: 10/05/18 10:25 Dose: 1 applic Diltiazem HCl (Cardizem Cd -) 120 mg PO DAILY [facility] Last Admin: 10/06/18 09:18 Dose: 120 mg Docusate Sodium (Colace -) 200 mg PO HS [facility] Last Admin: 10/05/18 23:12 Dose: Not Given Docusate Sodium (Colace -) 100 mg PO DAILY [facility] Last Admin: 10/06/18 09:18 Dose: 100 mg Ceftriaxone Sodium 1 gm/ (Dextrose) 50 mls @ 100 mls/hr IVPB DAILY [facility] Last Admin: 10/06/18 09:18 Dose: 100 mls/hr Diltiazem HCl 125 mg/ Dextrose 125 mls @ 5 mls/hr IVPB TITR [facility]; Protocol Last Admin: 10/06/18 11:30 Dose: 5 mg/hr, 5 mls/hr Metoprolol Tartrate (Lopressor -) 50 mg PO BID [facility] Last Admin: 10/06/18 09:18 Dose: 50 mg Metoprolol Tartrate (Lopressor Injection -) 5 mg IVPUSH Q4H PRN PRN Reason: HR >40 Last Admin: 10/06/18 05:33 Dose: 5 mg Ropinirole HCl (Requip -) 1 mg PO [facility] Last Admin: 10/05/18 22:00 Dose: Not Given Senna (Senna -) 2 tab PO [facility] Last Admin: 10/05/18 22:00 Dose: Not Given Timolol Maleate (Timoptic 0.5%) 1 drop OU BID [facility] Last Admin: 10/05/18 21:35 Dose: 1 drop GENERAL: Awake, alert, oriented, in no acute distress. HEAD: Normal with no signs of trauma. EYES: Pupils equal, round and reactive to light, conjunctiva clear. EARS, NOSE, THROAT: Ears normal, nares patent, oropharynx clear without exudates. dry mucous membranes. NECK: supple without lymphadenopathy, no JVD, LUNGS: Breath sounds equal, clear to auscultation bilaterally. No wheezes, and no crackles. No accessory muscle use. HEART: Rapid AFib ABDOMEN: Soft, nontender, not distended, normoactive bowel sounds, no guarding, no rebound, no masses. UPPER EXTREMITIES: 2+ pulses, warm, well-perfused. No peripheral edema. LOWER EXTREMITIES: warm, well-perfused. No calf tenderness. peripheral edema + . NEUROLOGICAL: Normal speech. PSYCHIATRIC: Cooperative. SKIN: Warm, dry, Laboratory Results - last 24 hr 10/06/18 10/06/18 05:40 05:40 WBC 7.1 RBC 3.46 L Hgb 9.4 L Hct 30.2 L MCV 87.2 MCH 27.2 MCHC 31.2 L RDW 18.3 H Plt Count 364 MPV 8.1 Sodium 148 H Potassium 3.6 Chloride 110 H Carbon Dioxide 26 Anion Gap 12 BUN 24 H Creatinine 1.5 H Creat Clearance w eGFR 32.70 Random Glucose 91 Calcium 8.9 Magnesium 2.8 H ASSESSMENT/PLAN: Rapid AFib Relative Hypotension likely due to component of Sepsis HTN HPL Vomiting UTI ABDOUL CKD ABX O2 as needed PO rate control meds PO as tolerated Eliquis Normal transfusion thresholds Cardiology follow up for further rate control Dr Major
--- NOTE | 2018-10-06 13:46 | PN ---
Physical Exam: SUBJECTIVE: Patient seen and examined, she reports feeling much better today. Denies pain, reports she is eating well. OBJECTIVE: Vital Signs Period Temp Pulse Resp BP Sys/Kraus Pulse Ox Last 24 Hr 97.8 F-98.2 F 65-154 20-20 89-129/43-88 98-98 GENERAL: Elderly, frail, awake, more alert than yesterday HEAD: Normal with no signs of trauma. EYES: Extraocular movements intact, sclera anicteric, conjunctiva clear. No lid lag. EARS, NOSE, THROAT: Ears normal, nares patent NECK: Normal range of motion, supple LUNGS: Diminished breath sounds, no wheezing. No accessory muscle use. HEART: Irregularly irregular, tachycardic, no murmurs appreciated ABDOMEN: Soft, nontender, not distended, normoactive bowel sounds, no guarding, no rebound, no masses. No hepatomegaly or splenomegaly. MUSCULOSKELETAL: Normal range of motion at all joints. Enlarged knees . No CVA tenderness. LOWER EXTREMITIES: R>L leg, non-pitting, warm, well-perfused. No calf tenderness. NEUROLOGICAL: No facial droop, tongue midline PSYCHIATRIC: Appears anxious SKIN: Warm, dry Laboratory Results - last 24 hr 10/06/18 10/06/18 05:40 05:40 WBC 7.1 RBC 3.46 L Hgb 9.4 L Hct 30.2 L MCV 87.2 MCH 27.2 MCHC 31.2 L RDW 18.3 H Plt Count 364 MPV 8.1 Sodium 148 H Potassium 3.6 Chloride 110 H Carbon Dioxide 26 Anion Gap 12 BUN 24 H Creatinine 1.5 H Creat Clearance w eGFR 32.70 Random Glucose 91 Calcium 8.9 Magnesium 2.8 H Active Medications Generic Name Dose Route Start Last Admin Trade Name Freq PRN Reason Stop Dose Admin Acetaminophen 500 mg 10/04/18 17:12 Tylenol - PO Q8H PRN PAIN 1-3 Allopurinol 100 mg 10/05/18 10:00 10/06/18 09:18 Zyloprim - PO 100 mg DAILY [facility] Administration Apixaban 2.5 mg 10/04/18 22:00 10/06/18 09:18 Eliquis - PO 2.5 mg BID [facility] Administration Atorvastatin Calcium 10 mg 10/04/18 22:00 10/05/18 22:00 Lipitor - PO Not Given HS [facility] Bethanechol Chloride 25 mg 10/04/18 18:00 10/06/18 09:18 Urecholine - PO 25 mg QID [facility] Administration Collagenase 1 applic 10/05/18 10:00 10/05/18 10:25 Santyl - TP 1 applic DAILY [facility] Administration Protocol Diltiazem HCl 120 mg 10/05/18 10:00 10/06/18 09:18 Cardizem Cd - PO 120 mg DAILY [facility] Administration Docusate Sodium 200 mg 10/04/18 22:00 10/05/18 23:12 Colace - PO Not Given HS [facility] Docusate Sodium 100 mg 10/05/18 10:00 10/06/18 09:18 Colace - PO 100 mg DAILY [facility] Administration Ceftriaxone Sodium 1 gm/ 50 mls @ 100 mls/hr 10/05/18 10:00 10/06/18 09:18 Dextrose IVPB 100 mls/hr DAILY [facility] Administration Diltiazem HCl 125 mg/ Dextrose 125 mls @ 5 mls/hr 10/05/18 00:30 10/06/18 11: 30 IVPB 5 mg/hr TITR [facility] 5 mls/hr Administration Protocol 5 MG/HR Metoprolol Tartrate 50 mg 10/05/18 10:00 10/06/18 09:18 Lopressor - PO 50 mg BID [facility] Administration Metoprolol Tartrate 5 mg 10/04/18 18:52 10/06/18 05:33 Lopressor Injection - IVPUSH 5 mg Q4H PRN Administration HR >40 Ropinirole HCl 1 mg 10/04/18 22:00 10/05/18 22:00 Requip - PO Not Given HS [facility] Senna 2 tab 10/04/18 22:00 10/05/18 22:00 Senna - PO Not Given HS [facility] Timolol Maleate 1 drop 10/04/18 22:00 10/05/18 21:35 Timoptic 0.5% OU 1 drop BID [facility] Administration Assessment & Plan: 88 year old female with a PMH significant for A-fib (on Eliquis), diastolic CHF , HTN, HLD, gout, glaucoma, osteoarthritis presented to the ED from sub acute rehab with elevated pulse in the 130s since Monday. She was seen by cardiology in the ED; A-fib with RVR and questionable infectious process. Afib with RVR - Likely triggered by infectious process - Discharged ICU now on telemetry floor - Cardizem - IV drip at 5 mg/hr - 120 PO q day - A-fib with RVR overnight (HR 130-140s) - Seen by cardiology - Echocardiogram once heart rate better controlled - Continue to wean dilt gtt (hold if BP<90) - Start Digoxin ( 0.125 q6 x 2, then 0.125 mg QOD starting tomorrow) - Start Metoprolol Tartrate 25mg q6hrs - Consider starting Amiodarone if HR does not improve over next 24-48 hours - Telemetry monitoring - Continue Eliquis 2.5 mg PO BID Elevated TSH - 4.04 - FT4 WNL 0.99 Possible UTI - Negative UA but positive urine culture with M. morganii - Followed by ID specialist Dr. Best - Ceftriaxone 1 GM qday ABDOUL on CKD - Improved - Cr now 1.5 (Baseline Cr 1.2 - 1.4) - Renal US negative for hydronephrosis, b/l atrophy, unchanged from 07/19/17 study - Likely prerenal as resolved with fluids - Monitor BMP and urinary output HTN - Currently Hypotensive - Fluid bolus - Hold home Losartan 25 mg PO qday to prevent drop in pressure; continue when clinically appropriate. Infiltrate vs. atelectesis at L base - Hospitalized in [facility] 1 month ago and treated for sepsis with 10 day course of Levaquin. - Followed by sports analyst Dr. Willoughby - O2 via NC @ 2 LPM Diastolic CHF - HOLD home Lasix 40 gm PO qday HLD - Atorvastatin 10 mg PO qhs Right heel pressure ulcer - Daily wound care with Santyl - Offload pressure to heel Gout - Allopurinol 100 mg PO qday Glaucoma - Timolol 0.5% 1 gtt OU BID Urinary Retention - Bethanechol Chloride 25 mg PO QID Restless leg syndrome - Continue Ropinirole 1 mg PO qday Pain Management - Actaminophen 500 mg PO q8h PRN Bowel regimen - Colace 100 mg qam, 200 mg QHS - Senna 2 tabs PO qhs Prophylaxis - DVT: On Eliquis 2.5 mg PO BID [facility] - PO intake adequate - Replete as indicated - Sodium controlled diet Disp: Patient requires further in patient monitoring. DNR/DNI Visit type - Emergency Visit Emergency Visit: No - New Patient This patient is new to me today: No - Critical Care Critical Care patient: No
[2018-10-06] MEDS ORDERED: SODIUM CHLORIDE 500 ML IV STA (14:01)
--- NOTE | 2018-10-06 14:03 | PN ---
Progress Note, Physician History of Present Illness: Pt seen and examined. Currently alert, verbally responsive, without respiratory distress. HR remains elevated. Son at bedside. - Current Medication List Current Medications: Active Medications Acetaminophen (Tylenol -) 500 mg PO Q8H PRN PRN Reason: PAIN 1-3 Allopurinol (Zyloprim -) 100 mg PO DAILY [facility] Last Admin: 10/06/18 09:18 Dose: 100 mg Apixaban (Eliquis -) 2.5 mg PO BID [facility] Last Admin: 10/06/18 09:18 Dose: 2.5 mg Atorvastatin Calcium (Lipitor -) 10 mg PO HS [facility] Last Admin: 10/05/18 22:00 Dose: Not Given Bethanechol Chloride (Urecholine -) 25 mg PO QID [facility] Last Admin: 10/06/18 09:18 Dose: 25 mg Collagenase (Santyl -) 1 applic TP DAILY [facility]; Protocol Last Admin: 10/05/18 10:25 Dose: 1 applic Diltiazem HCl (Cardizem Cd -) 120 mg PO DAILY [facility] Last Admin: 10/06/18 09:18 Dose: 120 mg Docusate Sodium (Colace -) 200 mg PO HS [facility] Last Admin: 10/05/18 23:12 Dose: Not Given Docusate Sodium (Colace -) 100 mg PO DAILY [facility] Last Admin: 10/06/18 09:18 Dose: 100 mg Ceftriaxone Sodium 1 gm/ (Dextrose) 50 mls @ 100 mls/hr IVPB DAILY [facility] Last Admin: 10/06/18 09:18 Dose: 100 mls/hr Diltiazem HCl 125 mg/ Dextrose 125 mls @ 5 mls/hr IVPB TITR [facility]; Protocol Last Admin: 10/06/18 11:30 Dose: 5 mg/hr, 5 mls/hr Metoprolol Tartrate (Lopressor Injection -) 5 mg IVPUSH Q4H PRN PRN Reason: HR >40 Last Admin: 10/06/18 05:33 Dose: 5 mg Metoprolol Tartrate (Lopressor -) 25 mg PO Q6H [facility] Ropinirole HCl (Requip -) 1 mg PO HS [facility] Last Admin: 10/05/18 22:00 Dose: Not Given Senna (Senna -) [address] [facility] Last Admin: 10/05/18 22:00 Dose: Not Given Timolol Maleate (Timoptic 0.5%) 1 drop OU BID [facility] Last Admin: 10/05/18 21:35 Dose: 1 drop - Objective Vital Signs: Vital Signs Temperature 98.2 F 10/06/18 09:00 Pulse Rate 136 H 10/06/18 11:30 Respiratory Rate 20 10/06/18 11:00 Blood Pressure 97/68 10/06/18 11:30 O2 Sat by Pulse Oximetry (%) 98 10/06/18 09:00 Constitutional: Yes: No Distress, Calm HENT: Yes: Atraumatic Neck: Yes: Supple Cardiovascular: Yes: Pulse Irregular Respiratory: Yes: Diminished Gastrointestinal: Yes: Normal Bowel Sounds, Soft Extremities: Yes: WNL Integumentary: Yes: WNL Neurological: Yes: Alert Labs: CBC, BMP 10/06/18 05:40 10/06/18 05:40 INR, PTT INR 1.67 (0.83-1.09) H 10/04/18 05:30 Microbiology 10/03/18 12:10 Blood - Peripheral Venous Blood Culture - Preliminary NO GROWTH OBTAINED AFTER 72 HOURS, INCUBATION TO CONTINUE FOR 2 DAYS. 10/03/18 11:40 Blood - Peripheral Venous Blood Culture - Preliminary NO GROWTH OBTAINED AFTER 72 HOURS, INCUBATION TO CONTINUE FOR 2 DAYS. 10/03/18 12:19 Urine - Urine Clean Catch Urine Culture - Final Morganella Morganii - ....Imaging Chest X-ray: Report Reviewed Assessment/Plan 88 y.o. female with PMH of dementia, CHF, HTN admitted for weakness and elevated BUN and creatinine UTI ABDOUL AFIB CHF HTN -- urine culture results noted, cont. Ceftriaxone -- monitor respiratory status, currently stable -- Cardiology following -- pt is afebrile, alert
[2018-10-06] MEDS ORDERED: DILTIAZEM INJECTION 125 MG in DEXTROSE 5%-WATER - 100 ML IVPB SCH (16:07)
[2018-10-06] MEDS: SENNOSIDES 8.6MG TABLET (FP) PO SCH (21:04)
[2018-10-06] MEDS: ATORVASTATIN CA 10 MG TABLET (FP) PO SCH (21:05)
[2018-10-06] MEDS: rOPINIRole HCL 1 MG TABLET (FP) PO SCH (21:06)
[2018-10-06] MEDS: ACETAMINOPHEN 500 MG TABLET (FP) PO PRN (21:07)
[2018-10-07] MEDS: METOPROLOL TARTRATE 50 MG TABLET (FP) PO SCH ×3 (02:00→11:34)
[2018-10-07 07:51] LABS: HEMATOCRIT 28.2 % (32.4-45.2); HEMOGLOBIN 9.4 GM/dL (10.7-15.3); MCH 29.1 pg (25.7-33.7); MCHC 33.5 g/dl (32.0-36.0); MEAN CELL VOLUME 87.1 fl (80-96); MEAN PLT VOLUME 8.3 fl (7.5-11.1); PLATELET COUNT 369 K/MM3 (134-434); RBC 3.23 M/mm3 (3.60-5.2); RDW 18.3 % (11.6-15.6); WHITE BLOOD COUNT 7.5 K/mm3 (4.0-10.0)
[2018-10-07 08:44] LABS: ANION GAP 10 MMOL/L (8-16); BLOOD UREA NITROGEN 22 mg/dL (7-18); CALCIUM 8.8 mg/dL (8.5-10.1); CHLORIDE 108 mmol/L (98-107); CO2 25 mmol/L (21-32); CREATININE 1.3 mg/dL (0.55-1.3); GLUCOSE,RANDOM 87 mg/dL (74-106); MAGNESIUM 2.8 mg/dL (1.8-2.4); POTASSIUM 3.5 mmol/L (3.5-5.1); SODIUM 144 mmol/L (136-145)
--- NOTE | 2018-10-07 10:54 | PN ---
Progress Note (short form) - Note Progress Note: Subjective: --No acute events, started on digoxin. Overnight metoprolol held due to SBP 97. Continues to be in afib with RVR. Objective: Vital Signs 10/07/18 10/07/18 04:00 06:00 Temperature 97.8 F 97.5 F L Pulse Rate 80 72 Respiratory 20 18 Rate Blood Pressure 118/55 L 97/57 L Gen: thin elderly female in NAD HEENT: NC Cardiac: irreg, irreg. S1/S2 no murmurs Pulm: clear breath sounds Ext: WWP. No edema Labs: Laboratory Results - last 24 hr 10/07/18 10/07/18 05:30 05:30 WBC 7.5 RBC 3.23 L Hgb 9.4 L Hct 28.2 L MCV 87.1 MCH 29.1 MCHC 33.5 RDW 18.3 H Plt Count 369 MPV 8.3 Sodium 144 Potassium 3.5 Chloride 108 H Carbon Dioxide 25 Anion Gap 10 BUN 22 H Creatinine 1.3 Creat Clearance w eGFR 38.57 Random Glucose 87 Calcium 8.8 Magnesium 2.8 H Active Medications Acetaminophen (Tylenol -) 500 mg PO Q8H PRN PRN Reason: PAIN 1-3 Last Admin: 10/06/18 21:07 Dose: 500 mg Allopurinol (Zyloprim -) 100 mg PO DAILY [facility] Last Admin: 10/07/18 11:27 Dose: 100 mg Apixaban (Eliquis -) 2.5 mg PO BID [facility] Last Admin: 10/07/18 11:27 Dose: 2.5 mg Atorvastatin Calcium (Lipitor -) 10 mg PO HS [facility] Last Admin: 10/06/18 21:05 Dose: 10 mg Bethanechol Chloride (Urecholine -) 25 mg PO QID [facility] Last Admin: 10/07/18 15:02 Dose: 25 mg Collagenase (Santyl -) 1 applic TP DAILY [facility]; Protocol Last Admin: 10/07/18 12:28 Dose: 1 applic Digoxin (Lanoxin -) 0.125 mg PO Q48H [facility] Stop: 10/09/18 10:01 Last Admin: 10/07/18 11:34 Dose: 0.125 mg Diltiazem HCl (Cardizem Cd -) 120 mg PO DAILY [facility] Last Admin: 10/07/18 11:33 Dose: 120 mg Docusate Sodium (Colace -) 200 mg PO HS [facility] Last Admin: 10/06/18 21:05 Dose: 200 mg Docusate Sodium (Colace -) 100 mg PO DAILY [facility] Last Admin: 10/07/18 11:27 Dose: 100 mg Ceftriaxone Sodium 1 gm/ (Dextrose) 50 mls @ 100 mls/hr IVPB DAILY [facility] Last Admin: 10/07/18 11:26 Dose: 100 mls/hr Diltiazem HCl 125 mg/ Dextrose 125 mls @ 2.5 mls/hr IVPB TITR [facility]; Protocol Last Admin: 10/06/18 16:10 Dose: 2.5 mg/hr, 2.5 mls/hr Metoprolol Tartrate (Lopressor Injection -) 5 mg IVPUSH Q4H PRN PRN Reason: HR >40 Last Admin: 10/06/18 05:33 Dose: 5 mg Metoprolol Tartrate (Lopressor -) 37.5 mg PO Q6H [facility] Last Admin: 10/07/18 15:01 Dose: 37.5 mg Ondansetron HCl (Zofran Injection) 4 mg IVPB Q8H PRN PRN Reason: NAUSEA Ropinirole HCl (Requip -) 1 mg PO HS [facility] Last Admin: 10/06/18 21:06 Dose: 1 mg Senna (Senna -) 2 tab PO HS [facility] Last Admin: 10/06/18 21:04 Dose: 2 tab Timolol Maleate (Timoptic 0.5%) 1 drop OU BID [facility] Last Admin: 10/07/18 15:03 Dose: Not Given A/P; 88 year old female with history of hypertension, atrial fibrillation on apixaban admitted with atrial fibrillation with RVR in setting of likely infection on abx with ID following- currently hemodynamically stable - weaning dilt gtt, on metoprolol and now digoxin. Etiology: likely infectious trigger Workup: --echocardiogram once heart rate better controlled --telemetry atrial fibrillation with RVR, HR 110s Treatment: --wean dilt gtt , on oral dilt PO (will not increase as last echocardiogram with mild LV dysfunction) --continue digoxin and increase metoprolol 25-->37.5 mg q6hrs --continue to treat underlying infection We will continue to follow. Moses Simmons MD
[2018-10-07] MEDS ORDERED: cefTRIAXone SODIUM 1 GM VIAL ONE (11:22)
[2018-10-07] MEDS ORDERED: DEXTROSE 5%-WATER - 50 ML IVPB ONE (11:22)
[2018-10-07] MEDS: CEFTRIAXONE 1 GM in DEXTROSE 5%-WATER - 50 ML IVPB SCH (11:26)
[2018-10-07] MEDS: APIXABAN 2.5 MG TABLET PO SCH ×2 (11:27→21:48)
[2018-10-07] MEDS: DOCUSATE SODIUM 100 MG CAPSULE (FP) PO SCH ×2 (11:27→21:48)
[2018-10-07] MEDS: ALLOPURINOL 100 MG TABLET (FP) PO SCH (11:27)
[2018-10-07] MEDS: BETHANECHOL CHLORIDE 25 MG TABLET PO SCH ×4 (11:27→21:48)
[2018-10-07] MEDS: DIGOXIN 0.125 MG TABLET (FP) PO SCH (11:34)
[2018-10-07] MEDS: COLLAGENASE CLOSTRIDIUM HIST. 30 GRAMS TUBE TP SCH (12:28)
[2018-10-07] MEDS ORDERED: ONDANSETRON 4 MG/2 ML VIAL IVPB PRN (12:56)
--- NOTE | 2018-10-07 12:56 | PN ---
Progress Note, Physician History of Present Illness: Pt is alert, without acute distress. Has no new complaints. Currently sitting in the chair. - Current Medication List Current Medications: Active Medications Acetaminophen (Tylenol -) 500 mg PO Q8H PRN PRN Reason: PAIN 1-3 Last Admin: 10/06/18 21:07 Dose: 500 mg Allopurinol (Zyloprim -) 100 mg PO DAILY [facility] Last Admin: 10/07/18 11:27 Dose: 100 mg Apixaban (Eliquis -) 2.5 mg PO BID [facility] Last Admin: 10/07/18 11:27 Dose: 2.5 mg Atorvastatin Calcium (Lipitor -) 10 mg PO HS [facility] Last Admin: 10/06/18 21:05 Dose: 10 mg Bethanechol Chloride (Urecholine -) 25 mg PO QID [facility] Last Admin: 10/07/18 11:27 Dose: 25 mg Collagenase (Santyl -) 1 applic TP DAILY [facility]; Protocol Last Admin: 10/07/18 12:28 Dose: 1 applic Digoxin (Lanoxin -) 0.125 mg PO Q48H [facility] Stop: 10/09/18 10:01 Last Admin: 10/07/18 11:34 Dose: 0.125 mg Diltiazem HCl (Cardizem Cd -) 120 mg PO DAILY [facility] Last Admin: 10/07/18 11:33 Dose: 120 mg Docusate Sodium (Colace -) 200 mg PO HS [facility] Last Admin: 10/06/18 21:05 Dose: 200 mg Docusate Sodium (Colace -) 100 mg PO DAILY [facility] Last Admin: 10/07/18 11:27 Dose: 100 mg Ceftriaxone Sodium 1 gm/ (Dextrose) 50 mls @ 100 mls/hr IVPB DAILY [facility] Last Admin: 10/07/18 11:26 Dose: 100 mls/hr Diltiazem HCl 125 mg/ Dextrose 125 mls @ 2.5 mls/hr IVPB TITR [facility]; Protocol Last Admin: 10/06/18 16:10 Dose: 2.5 mg/hr, 2.5 mls/hr Metoprolol Tartrate (Lopressor Injection -) 5 mg IVPUSH Q4H PRN PRN Reason: HR >40 Last Admin: 10/06/18 05:33 Dose: 5 mg Metoprolol Tartrate (Lopressor -) 25 mg PO Q6H [facility] Last Admin: 12/09/18 11:34 Dose: 25 mg Ropinirole HCl (Requip -) 1 mg PO [facility] Last Admin: 10/06/18 21:06 Dose: 1 mg Senna (Senna -) 2 tab PO [facility] Last Admin: 10/06/18 21:04 Dose: 2 tab Timolol Maleate (Timoptic 0.5%) 1 drop OU BID [facility] Last Admin: 10/06/18 22:00 Dose: 1 drop - Objective Vital Signs: Vital Signs Temperature 98.3 F 10/07/18 10:00 Pulse Rate 113 H 10/07/18 12:00 Respiratory Rate 18 10/07/18 10:00 Blood Pressure 131/79 10/07/18 10:00 O2 Sat by Pulse Oximetry (%) 99 10/07/18 09:00 Constitutional: Yes: No Distress Cardiovascular: Yes: Pulse Irregular Respiratory: Yes: Regular Gastrointestinal: Yes: Normal Bowel Sounds, Soft Integumentary: Yes: WNL Neurological: Yes: Alert Labs: CBC, BMP 10/07/18 05:30 10/07/18 05:30 INR, PTT INR 1.67 (0.83-1.09) H 10/04/18 05:30 Microbiology 10/03/18 12:10 Blood - Peripheral Venous Blood Culture - Preliminary NO GROWTH OBTAINED AFTER 96 HOURS, INCUBATION TO CONTINUE FOR 1 DAYS. 10/03/18 11:40 Blood - Peripheral Venous Blood Culture - Preliminary NO GROWTH OBTAINED AFTER 96 HOURS, INCUBATION TO CONTINUE FOR 1 DAYS. 10/03/18 12:19 Urine - Urine Clean Catch Urine Culture - Final Morganella Morganii Assessment/Plan 88 y.o. female with PMH of dementia, CHF, HTN admitted for weakness and elevated BUN and creatinine UTI - Morganella isolated ABDOUL - resolving AFIB CHF HTN -- cont. Ceftriaxone -- pt is afebrile, alert -- Cardiology following continue monitor
--- NOTE | 2018-10-07 14:00 | PN ---
Physical Exam: SUBJECTIVE: Patient seen and examined. OBJECTIVE: Vital Signs Period Temp Pulse Resp BP Sys/Kraus Pulse Ox Last 24 Hr 97.5 F-98.8 F 72-119 18-22 97-131/45-82 98-99 GENERAL: Elderly, frail, awake, HEAD: Normal with no signs of trauma. EYES: Extraocular movements intact, sclera anicteric, conjunctiva clear. No lid lag. EARS, NOSE, THROAT: Ears normal, nares patent NECK: Normal range of motion, supple LUNGS: Diminished breath sounds, no wheezing. No accessory muscle use. HEART: Irregularly irregular, tachycardic, no murmurs appreciated ABDOMEN: Soft, nontender, not distended, normoactive bowel sounds, no guarding, no rebound, no masses. No hepatomegaly or splenomegaly. MUSCULOSKELETAL: Normal range of motion at all joints. Enlarged knees . No CVA tenderness. LOWER EXTREMITIES: R>L leg, non-pitting, warm, well-perfused. No calf tenderness. NEUROLOGICAL: No facial droop, tongue midline PSYCHIATRIC: Appears anxious SKIN: Warm, dry Laboratory Results - last 24 hr 10/07/18 10/07/18 05:30 05:30 WBC 7.5 RBC 3.23 L Hgb 9.4 L Hct 28.2 L MCV 87.1 MCH 29.1 MCHC 33.5 RDW 18.3 H Plt Count 369 MPV 8.3 Sodium 144 Potassium 3.5 Chloride 108 H Carbon Dioxide 25 Anion Gap 10 BUN 22 H Creatinine 1.3 Creat Clearance w eGFR 38.57 Random Glucose 87 Calcium 8.8 Magnesium 2.8 H Active Medications Generic Name Dose Route Start Last Admin Trade Name Shivamq PRN Reason Stop Dose Admin Acetaminophen 500 mg 10/04/18 17:12 10/06/18 21:07 Tylenol - PO 500 mg Q8H PRN Administration PAIN 1-3 Allopurinol 100 mg 10/05/18 10:00 10/07/18 11:27 Zyloprim - PO 100 mg DAILY ROSEANNE Administration Apixaban 2.5 mg 10/04/18 22:00 10/07/18 11:27 Eliquis - PO 2.5 mg BID ROSEANNE Administration Atorvastatin Calcium 10 mg 10/04/18 22:00 10/06/18 21:05 Lipitor - PO 10 mg HS ROSEANNE Administration Bethanechol Chloride 25 mg 10/04/18 18:00 10/07/18 11:27 Urecholine - PO 25 mg QID ROSEANNE Administration Collagenase 1 applic 10/05/18 10:00 10/07/18 12:28 Santyl - TP 1 applic DAILY ROSEANNE Administration Protocol Digoxin 0.125 mg 10/07/18 10:00 10/07/18 11:34 Lanoxin - PO 10/09/18 10:01 0.125 mg Q48H ROSEANNE Administration Diltiazem HCl 120 mg 10/05/18 10:00 10/07/18 11:33 Cardizem Cd - PO 120 mg DAILY ROSEANNE Administration Docusate Sodium 200 mg 10/04/18 22:00 10/06/18 21:05 Colace - PO 200 mg HS ROSEANNE Administration Docusate Sodium 100 mg 10/05/18 10:00 10/07/18 11:27 Colace - PO 100 mg DAILY ROSEANNE Administration Ceftriaxone Sodium 1 gm/ 50 mls @ 100 mls/hr 10/05/18 10:00 10/07/18 11:26 Dextrose IVPB 100 mls/hr DAILY ROSEANNE Administration Diltiazem HCl 125 mg/ Dextrose 125 mls @ 2.5 mls/hr 10/06/18 16:07 10/06/18 16:10 IVPB 2.5 mg/hr TITR ROSEANNE 2.5 mls/hr Administration Protocol 2.5 MG/HR Metoprolol Tartrate 5 mg 10/04/18 18:52 10/06/18 05:33 Lopressor Injection - IVPUSH 5 mg Q4H PRN Administration HR >40 Metoprolol Tartrate 37.5 mg 10/07/18 13:21 Lopressor - PO Q6H ROSEANNE Ondansetron HCl 4 mg 10/07/18 12:56 Zofran Injection IVPB Q8H PRN NAUSEA Ropinirole HCl 1 mg 10/04/18 22:00 10/06/18 21:06 Requip - PO 1 mg HS ROSEANNE Administration Senna 2 tab 10/04/18 22:00 10/06/18 21:04 Senna - PO 2 tab HS ROSEANNE Administration Timolol Maleate 1 drop 10/04/18 22:00 10/06/18 22:00 Timoptic 0.5% OU 1 drop BID ROSEANNE Administration ASSESSMENT/PLAN: 88 year old female with a PMH significant for A-fib (on Eliquis), diastolic CHF , HTN, HLD, gout, glaucoma, osteoarthritis presented to the ED from sub acute rehab with elevated pulse in the 130s since Monday. She was seen by cardiology in the ED; A-fib with RVR and questionable infectious process. Afib with RVR - Likely triggered by infectious process - Discharged ICU now on telemetry floor - Cardizem - IV drip at 5 mg/hr - 120 PO q day - No acute events overnight, HR improved - Seen by cardiology - Echocardiogram once heart rate better controlled - Discontinue dilt gtt - Started on Digoxin 0.125 mg QOD - Increase Metoprolol Tartrate from 25mg -> 37.5 mg q6hrs - Consider starting Amiodarone if HR does not improve over next 24-48 hours - Telemetry monitoring - Continue Eliquis 2.5 mg PO BID Elevated TSH - 4.04 - FT4 WNL 0.99 Possible UTI - Negative UA but positive urine culture with M. morganii - Followed by ID specialist Dr. Best - Ceftriaxone 1 GM qday ABDOUL on CKD - Improved - Cr now 1.5 (Baseline Cr 1.2 - 1.4) - Renal US negative for hydronephrosis, b/l atrophy, unchanged from 07/19/17 study - Likely prerenal as resolved with fluids - Monitor BMP and urinary output HTN - Currently Hypotensive - Fluid bolus - Hold home Losartan 25 mg PO qday to prevent drop in pressure; continue when clinically appropriate. Infiltrate vs. atelectesis at L base - Hospitalized in [facility] 1 month ago and treated for sepsis with 10 day course of Levaquin. - Followed by gear generator set up operator Dr. Willoughby - O2 via NC @ 2 LPM Diastolic CHF - HOLD home Lasix 40 gm PO qday HLD - Atorvastatin 10 mg PO qhs Right heel pressure ulcer - Daily wound care with Santyl - Offload pressure to heel Gout - Allopurinol 100 mg PO qday Glaucoma - Timolol 0.5% 1 gtt OU BID Urinary Retention - Bethanechol Chloride 25 mg PO QID Restless leg syndrome - Continue Ropinirole 1 mg PO qday Pain Management - Actaminophen 500 mg PO q8h PRN Bowel regimen - Colace 100 mg qam, 200 mg QHS - Senna 2 tabs PO qhs Prophylaxis - DVT: On Eliquis 2.5 mg PO BID FEN - PO intake adequate - Replete as indicated - Sodium controlled diet Disp: Patient requires further in patient monitoring. DNR/DNI Visit type - Emergency Visit Emergency Visit: No - New Patient This patient is new to me today: No - Critical Care Critical Care patient: No
[2018-10-07] MEDS: METOPROLOL TARTRATE 25 MG TABLET (FP) PO SCH ×2 (15:01→21:48)
[2018-10-07] MEDS: TIMOLOL 0.5% OPHTHALMIC SOL 5 ML BOTTLE OU SCH ×2 (15:03→21:51)
--- NOTE | 2018-10-07 15:14 | PN ---
Progress Note (short form) - Note Progress Note: No CP or SOB. Rapid Afib but asymptomatic. Intake & Output 10/04/18 10/05/18 10/06/18 10/07/18 23:59 23:59 23:59 23:59 Intake Total 2090 315 400 130 Output Total 1000 Balance 1090 315 400 130 Weight 133 lb 9.6 oz 133 lb Last Vital Signs Temp Pulse Resp BP Pulse Ox 98.3 F 113 H 18 131/79 99 10/07/18 10:00 10/07/18 12:00 10/07/18 10:00 10/07/18 10:00 10/07/18 09:00 Active Medications Acetaminophen (Tylenol -) 500 mg PO Q8H PRN PRN Reason: PAIN 1-3 Last Admin: 10/06/18 21:07 Dose: 500 mg Allopurinol (Zyloprim -) 100 mg PO DAILY [facility] Last Admin: 10/07/18 11:27 Dose: 100 mg Apixaban (Eliquis -) 2.5 mg PO BID [facility] Last Admin: 10/07/18 11:27 Dose: 2.5 mg Atorvastatin Calcium (Lipitor -) 10 mg PO HS [facility] Last Admin: 10/06/18 21:05 Dose: 10 mg Bethanechol Chloride (Urecholine -) 25 mg PO QID [facility] Last Admin: 10/07/18 15:02 Dose: 25 mg Collagenase (Santyl -) 1 applic TP DAILY [facility]; Protocol Last Admin: 10/07/18 12:28 Dose: 1 applic Digoxin (Lanoxin -) 0.125 mg PO Q48H [facility] Stop: 10/09/18 10:01 Last Admin: 10/07/18 11:34 Dose: 0.125 mg Diltiazem HCl (Cardizem Cd -) 120 mg PO DAILY [facility] Last Admin: 10/07/18 11:33 Dose: 120 mg Docusate Sodium (Colace -) 200 mg PO HS [facility] Last Admin: 10/06/18 21:05 Dose: 200 mg Docusate Sodium (Colace -) 100 mg PO DAILY [facility] Last Admin: 10/07/18 11:27 Dose: 100 mg Ceftriaxone Sodium 1 gm/ (Dextrose) 50 mls @ 100 mls/hr IVPB DAILY [facility] Last Admin: 10/07/18 11:26 Dose: 100 mls/hr Diltiazem HCl 125 mg/ Dextrose 125 mls @ 2.5 mls/hr IVPB TITR ROSEANNE; Protocol Last Admin: 10/06/18 16:10 Dose: 2.5 mg/hr, 2.5 mls/hr Metoprolol Tartrate (Lopressor Injection -) 5 mg IVPUSH Q4H PRN PRN Reason: HR >40 Last Admin: 10/06/18 05:33 Dose: 5 mg Metoprolol Tartrate (Lopressor -) 37.5 mg PO Q6H ROSEANNE Last Admin: 10/07/18 15:01 Dose: 37.5 mg Ondansetron HCl (Zofran Injection) 4 mg IVPB Q8H PRN PRN Reason: NAUSEA Ropinirole HCl (Requip -) 1 mg PO HS [facility] Last Admin: 10/06/18 21:06 Dose: 1 mg Senna (Senna -) 2 tab PO HS [facility] Last Admin: 10/06/18 21:04 Dose: 2 tab Timolol Maleate (Timoptic 0.5%) 1 drop OU BID [facility] Last Admin: 10/07/18 15:03 Dose: Not Given GENERAL: Awake, alert, oriented, in no acute distress. HEAD: Normal with no signs of trauma. EYES: Pupils equal, round and reactive to light, conjunctiva clear. EARS, NOSE, THROAT: Ears normal, nares patent, oropharynx clear without exudates. dry mucous membranes. NECK: supple without lymphadenopathy, no JVD, LUNGS: clear to auscultation. No wheezes, and no crackles. No accessory muscle use. HEART: Rapid AFib ABDOMEN: Soft, nontender, not distended, normoactive bowel sounds, no guarding, no rebound, no masses. UPPER EXTREMITIES: 2+ pulses, warm, well-perfused. No peripheral edema. LOWER EXTREMITIES: warm, well-perfused. No calf tenderness. peripheral edema + . NEUROLOGICAL: Normal speech. PSYCHIATRIC: Cooperative. SKIN: Warm, dry, Laboratory Results - last 24 hr 10/07/18 10/07/18 05:30 05:30 WBC 7.5 RBC 3.23 L Hgb 9.4 L Hct 28.2 L MCV 87.1 MCH 29.1 MCHC 33.5 RDW 18.3 H Plt Count 369 MPV 8.3 Sodium 144 Potassium 3.5 Chloride 108 H Carbon Dioxide 25 Anion Gap 10 BUN 22 H Creatinine 1.3 Creat Clearance w eGFR 38.57 Random Glucose 87 Calcium 8.8 Magnesium 2.8 H ASSESSMENT/PLAN: Rapid AFib Relative Hypotension likely due to component of Sepsis HTN HPL Vomiting UTI ABDOUL CKD ABX O2 as needed PO rate control meds PO as tolerated Eliquis Normal transfusion thresholds Cardiology for further rate control Dr Major
[2018-10-07] MEDS ORDERED: PT OWN MED DRAWER 7, Y5N ONE ×2 (18:37→21:50)
[2018-10-07] MEDS: ATORVASTATIN CA 10 MG TABLET (FP) PO SCH (21:48)
[2018-10-07] MEDS: SENNOSIDES 8.6MG TABLET (FP) PO SCH (21:48)
[2018-10-07] MEDS: rOPINIRole HCL 1 MG TABLET (FP) PO SCH (21:50)
[2018-10-08] MEDS: METOPROLOL TARTRATE 25 MG TABLET (FP) PO SCH ×4 (06:18→17:14)
[2018-10-08 06:57] LABS: HEMATOCRIT 30.7 % (32.4-45.2); HEMOGLOBIN 9.6 GM/dL (10.7-15.3); MCH 27.6 pg (25.7-33.7); MCHC 31.1 g/dl (32.0-36.0); MEAN CELL VOLUME 88.7 fl (80-96); MEAN PLT VOLUME 8.1 fl (7.5-11.1); PLATELET COUNT 342 K/MM3 (134-434); RBC 3.46 M/mm3 (3.60-5.2); RDW 18.3 % (11.6-15.6); WHITE BLOOD COUNT 7.7 K/mm3 (4.0-10.0)
[2018-10-08 08:22] LABS: ANION GAP 8 MMOL/L (8-16); BLOOD UREA NITROGEN 17 mg/dL (7-18); CHLORIDE 109 mmol/L (98-107); CO2 28 mmol/L (21-32); CREATININE 1.1 mg/dL (0.55-1.3); GLUCOSE,RANDOM 88 mg/dL (74-106); MAGNESIUM 2.5 mg/dL (1.8-2.4); POTASSIUM 3.7 mmol/L (3.5-5.1); SODIUM 144 mmol/L (136-145)
[2018-10-08] MEDS: APIXABAN 2.5 MG TABLET PO SCH ×2 (09:14→21:34)
[2018-10-08] MEDS: DOCUSATE SODIUM 100 MG CAPSULE (FP) PO SCH ×2 (09:14→21:33)
[2018-10-08] MEDS: COLLAGENASE CLOSTRIDIUM HIST. 30 GRAMS TUBE TP SCH (09:14)
[2018-10-08] MEDS: TIMOLOL 0.5% OPHTHALMIC SOL 5 ML BOTTLE OU SCH ×2 (09:15→21:34)
[2018-10-08] MEDS: BETHANECHOL CHLORIDE 25 MG TABLET PO SCH ×4 (09:15→21:34)
[2018-10-08] MEDS: ALLOPURINOL 100 MG TABLET (FP) PO SCH (09:15)
[2018-10-08] MEDS: CEFTRIAXONE 1 GM in DEXTROSE 5%-WATER - 50 ML IVPB SCH (09:16)
--- NOTE | 2018-10-08 09:30 | PN ---
Physical Exam: SUBJECTIVE: Patient seen and examined, she reports feeling tired today. HR improved to 70s- 80s. OBJECTIVE: Vital Signs Period Temp Pulse Resp BP Sys/Kraus Pulse Ox Last 24 Hr 97.2 F-98.3 F 77-113 18-22 101-131/50-79 99 GENERAL: Elderly, frail, fatigued HEAD: Normal with no signs of trauma. EYES: Extraocular movements intact, sclera anicteric, conjunctiva clear. No lid lag. EARS, NOSE, THROAT: Ears normal, nares patent NECK: Normal range of motion, supple LUNGS: Diminished breath sounds, no wheezing. No accessory muscle use. HEART: Irregularly irregular, no murmurs appreciated ABDOMEN: Soft, nontender, not distended, normoactive bowel sounds, no guarding, no rebound, no masses. No hepatomegaly or splenomegaly. MUSCULOSKELETAL: Normal range of motion at all joints. Enlarged knees . No CVA tenderness. LOWER EXTREMITIES: R>L leg, non-pitting, warm, well-perfused. No calf tenderness. NEUROLOGICAL: No facial droop, tongue midline PSYCHIATRIC: Appears anxious SKIN: Warm, dry Laboratory Results - last 24 hr 10/08/18 10/08/18 05:30 05:30 WBC 7.7 RBC 3.46 L Hgb 9.6 L Hct 30.7 L MCV 88.7 MCH 27.6 MCHC 31.1 L RDW 18.3 H Plt Count 342 MPV 8.1 Sodium 144 Potassium 3.7 Chloride 109 H Carbon Dioxide 28 Anion Gap 8 BUN 17 Creatinine 1.1 Creat Clearance w eGFR 46.77 Random Glucose 88 Calcium 9.0 Magnesium 2.5 H Active Medications Generic Name Dose Route Start Last Admin Trade Name Freq PRN Reason Stop Dose Admin Acetaminophen 500 mg 10/04/18 17:12 10/06/18 21:07 Tylenol - PO 500 mg Q8H PRN Administration PAIN 1-3 Allopurinol 100 mg 10/05/18 10:00 10/08/18 09:15 Zyloprim - PO 100 mg DAILY ROSEANNE Administration Apixaban 2.5 mg 10/04/18 22:00 10/08/18 09:14 Eliquis - PO 2.5 mg BID ROSEANNE Administration Atorvastatin Calcium 10 mg 10/04/18 22:00 10/07/18 21:48 Lipitor - PO 10 mg HS ROSEANNE Administration Bethanechol Chloride 25 mg 10/04/18 18:00 10/08/18 09:15 Urecholine - PO 25 mg QID ROSEANNE Administration Collagenase 1 applic 10/05/18 10:00 10/08/18 09:14 Santyl - TP 1 applic DAILY ROSEANNE Administration Protocol Digoxin 0.125 mg 10/07/18 10:00 10/07/18 11:34 Lanoxin - PO 10/09/18 10:01 0.125 mg Q48H ROSEANNE Administration Diltiazem HCl 120 mg 10/05/18 10:00 10/08/18 09:13 Cardizem Cd - PO 120 mg DAILY ROSEANNE Administration Docusate Sodium 200 mg 10/04/18 22:00 10/07/18 21:48 Colace - PO 200 mg HS ROSEANNE Administration Docusate Sodium 100 mg 10/05/18 10:00 10/08/18 09:14 Colace - PO 100 mg DAILY ROSEANNE Administration Ceftriaxone Sodium 1 gm/ 50 mls @ 100 mls/hr 10/05/18 10:00 10/08/18 09:16 Dextrose IVPB 100 mls/hr DAILY ROSEANNE Administration Diltiazem HCl 125 mg/ Dextrose 125 mls @ 2.5 mls/hr 10/06/18 16:07 10/06/18 16:10 IVPB 2.5 mg/hr TITR ROSEANNE 2.5 mls/hr Administration Protocol 2.5 MG/HR Metoprolol Tartrate 5 mg 10/04/18 18:52 10/06/18 05:33 Lopressor Injection - IVPUSH 5 mg Q4H PRN Administration HR >40 Metoprolol Tartrate 37.5 mg 10/08/18 06:00 10/08/18 06:18 Lopressor - PO 37.5 mg Q6HPO ROSEANNE Administration Ondansetron HCl 4 mg 10/07/18 12:56 Zofran Injection IVPB Q8H PRN NAUSEA Ropinirole HCl 1 mg 10/04/18 22:00 10/07/18 21:50 Requip - PO 1 mg HS ROSEANNE Administration Senna 2 tab 10/04/18 22:00 10/07/18 21:48 Senna - PO 2 tab HS ROSEANNE Administration Timolol Maleate 1 drop 10/04/18 22:00 10/08/18 09:15 Timoptic 0.5% OU 1 drop BID ROSEANNE Administration ASSESSMENT/PLAN: 88 year old female with a PMH significant for A-fib (on Eliquis), diastolic CHF , HTN, HLD, gout, glaucoma, osteoarthritis presented to the ED from sub acute rehab with elevated pulse in the 130s since Monday. She was seen by cardiology in the ED; A-fib with RVR and questionable infectious process. Afib with RVR - Likely triggered by infectious process - Discharged ICU now on telemetry floor - Cardizem - IV drip at 2.5 mg/hr, continue to wean down - 120 PO q day - No acute events overnight, HR improved 70 -80s - Seen by cardiology, approved to d/c cardizem drip. - Echocardiogram once heart rate better controlled - Discontinue dilt gtt - Cardizem 150 mg PO qday - Will not increase as last echocardiogram with mild LV dysfunction - Started on Digoxin 0.125 mg QOD - Metoprolol Tartrate 37.5 mg q6hrs - Consider starting Amiodarone if HR does not improve over next 24-48 hours - Telemetry monitoring - Continue Eliquis 2.5 mg PO BID Elevated TSH - 4.04 - FT4 WNL 0.99 Possible UTI - Negative UA but positive urine culture with M. morganii - Followed by ID specialist Dr. Best - Completed 5 day course of Ceftriaxone 1 GM qday, d/josep today per ID ABDOUL on CKD - Improved - Cr now 1.1 (Baseline Cr 1.2 - 1.4) - Renal US negative for hydronephrosis, b/l atrophy, unchanged from 07/19/17 study - Likely prerenal as resolved with fluids - Monitor BMP and urinary output HTN - Normotensive - Hold home Losartan 25 mg PO qday to prevent drop in pressure; continue when clinically appropriate. Infiltrate vs. atelectesis at L base - Hospitalized in [facility] 1 month ago and treated for sepsis with 10 day course of Levaquin. - Followed by vascular technologist Dr. Willoughby - O2 via NC @ 2 LPM Diastolic CHF - HOLD home Lasix 40 gm PO qday HLD - Atorvastatin 10 mg PO qhs Right heel pressure ulcer - Daily wound care with Santyl - Offload pressure to heel Gout - Allopurinol 100 mg PO qday Glaucoma - Timolol 0.5% 1 gtt OU BID Urinary Retention - Bethanechol Chloride 25 mg PO QID Restless leg syndrome - Continue Ropinirole 1 mg PO qday Pain Management - Actaminophen 500 mg PO q8h PRN Bowel regimen - Colace 100 mg qam, 200 mg QHS - Senna 2 tabs PO qhs Prophylaxis - DVT: On Eliquis 2.5 mg PO BID FEN - PO intake adequate - Replete as indicated - Puree, nectar thick liquid diet, seen by SLT Faye Berry today, MBS ordered for tomorrow for possible diet upgrade prior to dc. Disp: May be suitable to d/c to [facility] tomorrow. DNR/DNI Visit type - Emergency Visit Emergency Visit: No - New Patient This patient is new to me today: No - Critical Care Critical Care patient: No
--- NOTE | 2018-10-08 11:01 | PN ---
Progress Note, Physician History of Present Illness: PULMONARY ALERT,NO DISTRESS,-SOB - Current Medication List Current Medications: Active Medications Acetaminophen (Tylenol -) 500 mg PO Q8H PRN PRN Reason: PAIN 1-3 Last Admin: 10/06/18 21:07 Dose: 500 mg Allopurinol (Zyloprim -) 100 mg PO DAILY [facility] Last Admin: 10/08/18 09:15 Dose: 100 mg Apixaban (Eliquis -) 2.5 mg PO BID [facility] Last Admin: 10/08/18 09:14 Dose: 2.5 mg Atorvastatin Calcium (Lipitor -) 10 mg PO HS [facility] Last Admin: 10/07/18 21:48 Dose: 10 mg Bethanechol Chloride (Urecholine -) 25 mg PO QID [facility] Last Admin: 10/08/18 09:15 Dose: 25 mg Collagenase (Santyl -) 1 applic TP DAILY [facility]; Protocol Last Admin: 10/08/18 09:14 Dose: 1 applic Digoxin (Lanoxin -) 0.125 mg PO Q48H [facility] Stop: 10/09/18 10:01 Last Admin: 10/07/18 11:34 Dose: 0.125 mg Diltiazem HCl (Cardizem Cd -) 120 mg PO DAILY [facility] Last Admin: 10/08/18 09:13 Dose: 120 mg Docusate Sodium (Colace -) 200 mg PO HS [facility] Last Admin: 10/07/18 21:48 Dose: 200 mg Docusate Sodium (Colace -) 100 mg PO DAILY [facility] Last Admin: 10/08/18 09:14 Dose: 100 mg Ceftriaxone Sodium 1 gm/ (Dextrose) 50 mls @ 100 mls/hr IVPB DAILY [facility] Last Admin: 10/08/18 09:16 Dose: 100 mls/hr Diltiazem HCl 125 mg/ Dextrose 125 mls @ 2.5 mls/hr IVPB TITR [facility]; Protocol Last Admin: 10/06/18 16:10 Dose: 2.5 mg/hr, 2.5 mls/hr Metoprolol Tartrate (Lopressor Injection -) 5 mg IVPUSH Q4H PRN PRN Reason: HR >40 Last Admin: 10/06/18 05:33 Dose: 5 mg Metoprolol Tartrate (Lopressor -) 37.5 mg PO Q6HPO [facility] Last Admin: 10/08/18 06:18 Dose: 37.5 mg Ondansetron HCl (Zofran Injection) 4 mg IVPB Q8H PRN PRN Reason: NAUSEA Ropinirole HCl (Requip -) 1 mg PO HS [facility] Last Admin: 10/07/18 21:50 Dose: 1 mg Senna (Senna -) 2 tab PO HS [facility] Last Admin: 10/07/18 21:48 Dose: 2 tab Timolol Maleate (Timoptic 0.5%) 1 drop OU BID [facility] Last Admin: 10/08/18 09:15 Dose: 1 drop - Objective Vital Signs: Vital Signs Temperature 98.2 F 10/08/18 09:00 Pulse Rate 80 10/08/18 09:00 Respiratory Rate 18 10/08/18 09:00 Blood Pressure 130/67 10/08/18 09:00 O2 Sat by Pulse Oximetry (%) 100 10/08/18 09:00 Constitutional: Yes: Well Nourished, Calm Eyes: Yes: WNL HENT: Yes: WNL Neck: Yes: WNL Cardiovascular: Yes: Pulse Irregular, S1, S2 Respiratory: Yes: Diminished Gastrointestinal: Yes: Normal Bowel Sounds, Soft Extremities: Yes: WNL Edema: No Labs: CBC, BMP 10/08/18 05:30 10/08/18 05:30 INR, PTT INR 1.67 (0.83-1.09) H 10/04/18 05:30 Assessment/Plan ASSESSMENT/PLAN: Rapid AFib on IV cardizem drip improving Relative Hypotension improved HTN HPL Vomiting (?) Sepsis ABDOUL CKD ABX O2 as needed rate control meds as per Cardiology IV Cardizem as per Cardiology PO as tolerated Heat pack to left breast Eliquis Normal transfusion thresholds Follow I & O DR GODDARD
--- NOTE | 2018-10-08 12:15 | CONSULT ---
Admitting History and Physical - Admission History of Present Illness: 88 year old female with a PMH significant for A-fib (on Eliquis), diastolic CHF , HTN, HLD, gout, glaucoma, osteoarthritis presented to the ED from sub acute rehab with elevated pulse. A-fib with RVR. (+) urine culture. Selected Entries 10/07/18 10/07/18 10/07/18 02:20 04:00 06:00 Breakfast Lunch Supper Temperature 97.6 F 97.8 F 97.5 F L 10/07/18 10/07/18 10/07/18 10:00 11:28 14:10 Breakfast 50% Lunch Supper Temperature 98.3 F 97.2 F L 10/07/18 10/07/18 10/07/18 15:16 17:00 19:09 Breakfast Lunch 50% Supper 25% Temperature 98.0 F 10/07/18 10/08/18 10/08/18 22:14 05:51 09:00 Breakfast Lunch Supper Temperature 98 F 98 F 98.2 F Laboratory Tests 10/08/18 05:30 WBC 7.7 Pt on puree/nectar thick liquids here. Last seen by me 08/21/18-MBS reviewed with staff. Pt seen bedside, lying flat. Smiling and looks comfortable.. On Puree/nectar thick liquid. Suggested free water protocol for improved hydration. Pt looks much stronger than during July admission. Pt was on reg/ground diet and nectar thick liquid/ Ensure plus at [facility]. - Past Medical History Cardiovascular: Yes: AFIB (New onset), CHF (diastolic CHF per records), HTN, Hyperlipdemia Heme/Onc: Yes: Anemia Musculoskeletal: Yes: Osteoarthritis - Past Surgical History Past Surgical History: Yes: Hysterectomy - Advance Directives Advance Directives: Yes: DNR - Smoking History Smoking history: Unknown if ever smoked Have you smoked in the past 12 months: No Aproximately how many cigarettes per day: 0 - Alcohol/Substance Use Hx Alcohol Use: No History of Substance Use: reports: None History - Admission Reason For Visit: WEAKNESS; ACUTE RENAL FAILURE;ATRIAL FLUTTER WITH - Diagnostics X-ray: Report Reviewed - General Mental Status: Awake and Alert, Able to Follow Commands Attention: Intact Ability to Follow Directions: Fair - Hearing Hearing: Impaired Hearing Aide: Yes (Left at [facility] per) With Patient: No Speech Evaluation - Communication Primary Language: FINNISH Communication: Yes: Simple Responses - Speech Characteristics Voice Loudness: Normal Voice Pitch: Yes: Normal Voice Phonatory-based Quality: Yes: Normal Speech Pattern: Normal Speech Clarity: < 100% Nasal Resonance: Normal Articulation: Yes: Precise - Language/Auditory Comprehension Follows: Yes: 1 Stage Simple Commands - Swallow Evaluation/Bedside Assessment Current Nutritional Intake: Dysphagia Pureed, [place] Textured Liquids Oral Secretions: Yes: WFL Dentition: Yes: Missing Teeth Facial Symmetry at Rest: Symmetrical Lingual Movement: Symmetric Lingual Speed of Movement: Normal Lingual Movement Strgth Against Opposition: Normal Laryngeal Movement: Able to Palpate Labial Seal: WFL Oral Prep Time: WFL A-P Transit: WFL Timing of Swallow: WFL Coughing/Throat Clear: No Change in Voice: No Recommendations - Speech Evaluation, Impression/Plan Impression: Pt with UTI on this admission. Pt has been on Dys puree and nectar thick liquids. - Dysphagia Impressions/Plan Dysphagia Impressions: Ongoing Evaluation *Silent aspiration: cannot be R/O at bedside Recommendations: Modified Barium Swallow (to upgrade diet with safety, hopefully to thin liquids for improved hydration and reduced risk of UTI's)
--- NOTE | 2018-10-08 12:53 | PN ---
Progress Note, Physician History of Present Illness: Patient is a 88-year-old female past medical history of A. fib on anticoagulation (Eliquis), anemia, CHF, dysphagia, hypertension, hyperlipidemia , dementia who presents to the emergency department today for weakness. Her son states that she has not been acting like herself since Monday and that she has felt more weak. He noticed at the half-way her pulse was going up into the 130s since Monday. Patient denies chest pain, shortness of breath or difficulty breathing. She states that she feels fine and wants to go home. Triage vital signs notable for pulse of 147, blood pressure of 105/71, pulse ox of 96. Rectal temperature is 90.7 Patient is DNR/DNI PMH HTN paroxysmal atrial fibrillation diastolic CHF, with moderate-severe pulmonary HTN (ECHO 12/2017) hyperlipidemia glaucoma gout anxiety chronic right knee pain - Current Medication List Current Medications: Active Medications Acetaminophen (Tylenol -) 500 mg PO Q8H PRN PRN Reason: PAIN 1-3 Last Admin: 10/06/18 21:07 Dose: 500 mg Allopurinol (Zyloprim -) 100 mg PO DAILY [facility] Last Admin: 10/08/18 09:15 Dose: 100 mg Apixaban (Eliquis -) 2.5 mg PO BID [facility] Last Admin: 10/08/18 09:14 Dose: 2.5 mg Atorvastatin Calcium (Lipitor -) 10 mg PO HS [facility] Last Admin: 10/07/18 21:48 Dose: 10 mg Bethanechol Chloride (Urecholine -) 25 mg PO QID [facility] Last Admin: 10/08/18 09:15 Dose: 25 mg Collagenase (Santyl -) 1 applic TP DAILY [facility]; Protocol Last Admin: 10/08/18 09:14 Dose: 1 applic Digoxin (Lanoxin -) 0.125 mg PO Q48H [facility] Stop: 10/09/18 10:01 Last Admin: 10/07/18 11:34 Dose: 0.125 mg Diltiazem HCl (Cardizem Cd -) 120 mg PO DAILY [facility] Last Admin: 10/08/18 09:13 Dose: 120 mg Docusate Sodium (Colace -) 200 mg PO HS [facility] Last Admin: 10/07/18 21:48 Dose: 200 mg Docusate Sodium (Colace -) 100 mg PO DAILY [facility] Last Admin: 10/08/18 09:14 Dose: 100 mg Ceftriaxone Sodium 1 gm/ (Dextrose) 50 mls @ 100 mls/hr IVPB DAILY [facility] Last Admin: 10/08/18 09:16 Dose: 100 mls/hr Metoprolol Tartrate (Lopressor Injection -) 5 mg IVPUSH Q4H PRN PRN Reason: HR >40 Last Admin: 10/06/18 05:33 Dose: 5 mg Metoprolol Tartrate (Lopressor -) 37.5 mg PO Q6HPO [facility] Last Admin: 10/08/18 06:18 Dose: 37.5 mg Ondansetron HCl (Zofran Injection) 4 mg IVPB Q8H PRN PRN Reason: NAUSEA Ropinirole HCl (Requip -) 1 mg PO HS [facility] Last Admin: 10/07/18 21:50 Dose: 1 mg Senna (Senna -) 2 tab PO HS [facility] Last Admin: 10/07/18 21:48 Dose: 2 tab Timolol Maleate (Timoptic 0.5%) 1 drop OU BID [facility] Last Admin: 10/08/18 09:15 Dose: 1 drop - Objective Vital Signs: Vital Signs Temperature 98.2 F 10/08/18 09:00 Pulse Rate 80 10/08/18 09:00 Respiratory Rate 18 10/08/18 09:00 Blood Pressure 130/67 10/08/18 09:00 O2 Sat by Pulse Oximetry (%) 100 10/08/18 09:00 Eyes: Yes: WNL, Conjunctiva Clear, EOM Intact HENT: Yes: WNL, Atraumatic, Normocephalic Neck: Yes: WNL, Supple, Trachea Midline Cardiovascular: Yes: WNL, Regular Rate and Rhythm Respiratory: Yes: WNL, Regular, CTA Bilaterally Gastrointestinal: Yes: WNL, Normal Bowel Sounds Genitourinary: Yes: WNL Musculoskeletal: Yes: WNL Extremities: Yes: WNL Edema: No Integumentary: Yes: WNL Neurological: Yes: WNL, Alert, Oriented ...Motor Strength: WNL Psychiatric: Yes: WNL Labs: CBC, BMP 10/08/18 05:30 10/08/18 05:30 INR, PTT INR 1.67 (0.83-1.09) H 10/04/18 05:30 Problem List - Problems (1) Acute on chronic diastolic (congestive) heart failure Code(s): I50.33 - ACUTE ON CHRONIC DIASTOLIC (CONGESTIVE) HEART FAILURE (2) Acute on chronic systolic (congestive) heart failure Code(s): I50.23 - ACUTE ON CHRONIC SYSTOLIC (CONGESTIVE) HEART FAILURE (3) Acute respiratory failure with hypoxia and hypercapnia Code(s): J96.01 - ACUTE RESPIRATORY FAILURE WITH HYPOXIA; J96.02 - ACUTE RESPIRATORY FAILURE WITH HYPERCAPNIA (4) [id number] kidney injury Code(s): N17.9 - ACUTE KIDNEY FAILURE, UNSPECIFIED; N18.9 - CHRONIC KIDNEY DISEASE, UNSPECIFIED Qualifiers: Qualified Code(s): N17.9 - Acute kidney failure, unspecified; N18.9 - Chronic kidney disease, unspecified (5) Allergic reaction Code(s): T78.40XA - ALLERGY, UNSPECIFIED, INITIAL ENCOUNTER Qualifiers: Qualified Code(s): T78.40XA - Allergy, unspecified, initial encounter (6) Atrial fibrillation with RVR Code(s): I48.91 - UNSPECIFIED ATRIAL FIBRILLATION (7) Atrial flutter with rapid ventricular response Code(s): I48.92 - UNSPECIFIED ATRIAL FLUTTER (8) Back pain Code(s): M54.9 - DORSALGIA, UNSPECIFIED (9) Dehydration Code(s): E86.0 - DEHYDRATION (10) Diastolic dysfunction Code(s): I51.9 - HEART DISEASE, UNSPECIFIED (11) Elevated brain natriuretic peptide (BNP) level Code(s): R79.89 - OTHER SPECIFIED ABNORMAL FINDINGS OF BLOOD CHEMISTRY (12) History of dyspnea Code(s): Z87.09 - PERSONAL HISTORY OF OTHER DISEASES OF THE RESPIRATORY SYSTEM (13) Hypoxia Code(s): R09.02 - HYPOXEMIA (14) Leukocytosis Code(s): D72.829 - ELEVATED WHITE BLOOD CELL COUNT, UNSPECIFIED Qualifiers: Qualified Code(s): D72.829 - Elevated white blood cell count, unspecified (15) Malignancy Code(s): C80.1 - MALIGNANT (PRIMARY) NEOPLASM, UNSPECIFIED (16) Paroxysmal atrial fibrillation Code(s): I48.0 - PAROXYSMAL ATRIAL FIBRILLATION (17) Pericardial effusion Code(s): I31.3 - PERICARDIAL EFFUSION (NONINFLAMMATORY) (18) Pleural effusion Code(s): J90 - PLEURAL EFFUSION, NOT ELSEWHERE CLASSIFIED (19) Pneumonia Code(s): J18.9 - PNEUMONIA, UNSPECIFIED ORGANISM (20) Renal dysfunction Code(s): N28.9 - DISORDER OF KIDNEY AND URETER, UNSPECIFIED (21) Respiratory distress Code(s): R06.03 - ACUTE RESPIRATORY DISTRESS (22) Sepsis Code(s): A41.9 - SEPSIS, UNSPECIFIED ORGANISM (23) Shortness of breath Code(s): R06.02 - SHORTNESS OF BREATH (24) Sinus bradycardia Code(s): R00.1 - BRADYCARDIA, UNSPECIFIED (25) Chronic kidney disease Code(s): N18.9 - CHRONIC KIDNEY DISEASE, UNSPECIFIED Qualifiers: Qualified Code(s): N18.2 - Chronic kidney disease, stage 2 (mild) (26) HTN (hypertension) Code(s): I10 - ESSENTIAL (PRIMARY) HYPERTENSION Qualifiers: Qualified Code(s): I10 - Essential (primary) hypertension (27) Hypercholesterolemia Code(s): E78.00 - PURE HYPERCHOLESTEROLEMIA, UNSPECIFIED (28) Osteoarthritis Code(s): M19.90 - UNSPECIFIED OSTEOARTHRITIS, UNSPECIFIED SITE Qualifiers: Qualified Code(s): M17.11 - Unilateral primary osteoarthritis, right knee Assessment/Plan 88 year old female with history of hypertension, atrial fibrillation on apixaban admitted with atrial fibrillation with RVR in setting of likely infection on abx with ID following- currently hemodynamically stable - weaning dilt gtt, on metoprolol and now digoxin. Etiology: likely infectious trigger Workup: --echocardiogram once heart rate better controlled --telemetry atrial fibrillation well rate controlled. will d/c telemetry Treatment: --wean dilt gtt , on oral dilt PO (will not increase as last echocardiogram with mild LV dysfunction) --continue digoxin and increase metoprolol 25-->37.5 mg q6hrs --continue to treat underlying infection
--- NOTE | 2018-10-08 15:08 | PN ---
Progress Note, Physician - Current Medication List Current Medications: Active Medications Acetaminophen (Tylenol -) 500 mg PO Q8H PRN PRN Reason: PAIN 1-3 Last Admin: 10/06/18 21:07 Dose: 500 mg Allopurinol (Zyloprim -) 100 mg PO DAILY [facility] Last Admin: 10/08/18 09:15 Dose: 100 mg Apixaban (Eliquis -) 2.5 mg PO BID [facility] Last Admin: 10/08/18 09:14 Dose: 2.5 mg Atorvastatin Calcium (Lipitor -) 10 mg PO HS [facility] Last Admin: 10/07/18 21:48 Dose: 10 mg Bethanechol Chloride (Urecholine -) 25 mg PO QID [facility] Last Admin: 10/08/18 13:07 Dose: 25 mg Collagenase (Santyl -) 1 applic TP DAILY [facility]; Protocol Last Admin: 10/08/18 09:14 Dose: 1 applic Digoxin (Lanoxin -) 0.125 mg PO Q48H [facility] Stop: 10/09/18 10:01 Last Admin: 10/07/18 11:34 Dose: 0.125 mg Diltiazem HCl (Cardizem Cd -) 120 mg PO DAILY [facility] Last Admin: 10/08/18 09:13 Dose: 120 mg Docusate Sodium (Colace -) 200 mg PO HS [facility] Last Admin: 10/07/18 21:48 Dose: 200 mg Docusate Sodium (Colace -) 100 mg PO DAILY [facility] Last Admin: 10/08/18 09:14 Dose: 100 mg Ceftriaxone Sodium 1 gm/ (Dextrose) 50 mls @ 100 mls/hr IVPB DAILY [facility] Last Admin: 10/08/18 09:16 Dose: 100 mls/hr Metoprolol Tartrate (Lopressor Injection -) 5 mg IVPUSH Q4H PRN PRN Reason: HR >40 Last Admin: 10/06/18 05:33 Dose: 5 mg Metoprolol Tartrate (Lopressor -) 37.5 mg PO Q6HPO [facility] Last Admin: 10/08/18 13:06 Dose: 37.5 mg Ondansetron HCl (Zofran Injection) 4 mg IVPB Q8H PRN PRN Reason: NAUSEA Ropinirole HCl (Requip -) 1 mg PO HS [facility] Last Admin: 10/07/18 21:50 Dose: 1 mg Senna (Senna -) 2 tab PO HS [facility] Last Admin: 10/07/18 21:48 Dose: 2 tab Timolol Maleate (Timoptic 0.5%) 1 drop OU BID [facility] Last Admin: 10/08/18 09:15 Dose: 1 drop - Objective Vital Signs: Vital Signs Temperature 98.2 F 10/08/18 09:00 Pulse Rate 80 10/08/18 09:00 Respiratory Rate 18 10/08/18 09:00 Blood Pressure 130/67 10/08/18 09:00 O2 Sat by Pulse Oximetry (%) 100 10/08/18 09:00 Labs: CBC, BMP 10/08/18 05:30 10/08/18 05:30 INR, PTT INR 1.67 (0.83-1.09) H 10/04/18 05:30
[2018-10-08] MEDS ORDERED: PT OWN MED DRAWER 7, Y5N ONE ×2 (19:51→21:36)
[2018-10-08] MEDS: ATORVASTATIN CA 10 MG TABLET (FP) PO SCH (21:33)
[2018-10-08] MEDS: rOPINIRole HCL 1 MG TABLET (FP) PO SCH (21:34)
[2018-10-08] MEDS: SENNOSIDES 8.6MG TABLET (FP) PO SCH (21:34)
[2018-10-08] MEDS: ACETAMINOPHEN 500 MG TABLET (FP) PO PRN (21:34)
[2018-10-09] MEDS: METOPROLOL TARTRATE 25 MG TABLET (FP) PO SCH ×2 (02:26→06:12)
[2018-10-09 06:21] LABS: HEMATOCRIT 32.5 % (32.4-45.2); MCH 27.7 pg (25.7-33.7); MCHC 30.9 g/dl (32.0-36.0); MEAN CELL VOLUME 89.7 fl (80-96); MEAN PLT VOLUME 8.1 fl (7.5-11.1); PLATELET COUNT 341 K/MM3 (134-434); RBC 3.62 M/mm3 (3.60-5.2); RDW 18.4 % (11.6-15.6); WHITE BLOOD COUNT 10.2 K/mm3 (4.0-10.0)
[2018-10-09 06:58] LABS: ANION GAP 5 MMOL/L (8-16); BLOOD UREA NITROGEN 15 mg/dL (7-18); CALCIUM 9.2 mg/dL (8.5-10.1); CHLORIDE 108 mmol/L (98-107); CO2 30 mmol/L (21-32); CREATININE 1.2 mg/dL (0.55-1.3); GLUCOSE,RANDOM 91 mg/dL (74-106); MAGNESIUM 2.5 mg/dL (1.8-2.4); SODIUM 143 mmol/L (136-145)
[2018-10-09] MEDS: DOCUSATE SODIUM 100 MG CAPSULE (FP) PO SCH (09:28)
[2018-10-09] MEDS: APIXABAN 2.5 MG TABLET PO SCH (09:28)
[2018-10-09] MEDS: DIGOXIN 0.125 MG TABLET (FP) PO SCH (09:28)
[2018-10-09] MEDS: BETHANECHOL CHLORIDE 25 MG TABLET PO SCH ×2 (09:29→13:54)
[2018-10-09] MEDS: ALLOPURINOL 100 MG TABLET (FP) PO SCH (09:29)
[2018-10-09] MEDS: TIMOLOL 0.5% OPHTHALMIC SOL 5 ML BOTTLE OU SCH (09:29)
--- NOTE | 2018-10-09 10:41 | PN ---
Progress Note, Physician History of Present Illness: pulmonary alert,-sob,no distress. - Current Medication List Current Medications: Active Medications Acetaminophen (Tylenol -) 500 mg PO Q8H PRN PRN Reason: PAIN 1-3 Last Admin: 10/08/18 21:34 Dose: 500 mg Allopurinol (Zyloprim -) 100 mg PO DAILY [facility] Last Admin: 10/09/18 09:29 Dose: 100 mg Apixaban (Eliquis -) 2.5 mg PO BID [facility] Last Admin: 10/09/18 09:28 Dose: 2.5 mg Atorvastatin Calcium (Lipitor -) 10 mg PO HS [facility] Last Admin: 10/08/18 21:33 Dose: 10 mg Bethanechol Chloride (Urecholine -) 25 mg PO QID [facility] Last Admin: 10/09/18 09:29 Dose: 25 mg Collagenase (Santyl -) 1 applic TP DAILY [facility]; Protocol Last Admin: 10/08/18 09:14 Dose: 1 applic Diltiazem HCl (Cardizem Cd -) 120 mg PO DAILY [facility] Last Admin: 10/09/18 09:28 Dose: 120 mg Docusate Sodium (Colace -) 200 mg PO HS [facility] Last Admin: 10/08/18 21:33 Dose: 200 mg Docusate Sodium (Colace -) 100 mg PO DAILY [facility] Last Admin: 10/09/18 09:28 Dose: 100 mg Metoprolol Tartrate (Lopressor Injection -) 5 mg IVPUSH Q4H PRN PRN Reason: HR >40 Last Admin: 10/06/18 05:33 Dose: 5 mg Metoprolol Tartrate (Lopressor -) 37.5 mg PO Q6HPO [facility] Last Admin: 10/09/18 06:12 Dose: Not Given Ondansetron HCl (Zofran Injection) 4 mg IVPB Q8H PRN PRN Reason: NAUSEA Ropinirole HCl (Requip -) 1 mg PO HS [facility] Last Admin: 10/08/18 21:34 Dose: 1 mg Senna (Senna -) 2 tab PO HS [facility] Last Admin: 10/08/18 21:34 Dose: 2 tab Timolol Maleate (Timoptic 0.5%) 1 drop OU BID [facility] Last Admin: 10/09/18 09:29 Dose: 1 drop - Objective Vital Signs: Vital Signs Temperature 97.9 F 10/09/18 09:36 Pulse Rate 113 H 10/09/18 09:36 Respiratory Rate 20 10/09/18 09:36 Blood Pressure 110/61 10/09/18 09:36 O2 Sat by Pulse Oximetry (%) 100 10/08/18 21:00 Constitutional: Yes: Well Nourished, Calm Eyes: Yes: WNL HENT: Yes: WNL Neck: Yes: WNL Cardiovascular: Yes: Pulse Irregular, S1, S2 Respiratory: Yes: Diminished Gastrointestinal: Yes: Normal Bowel Sounds, Soft Extremities: Yes: WNL Edema: No Labs: CBC, BMP 10/09/18 05:30 10/09/18 05:30 INR, PTT INR 1.67 (0.83-1.09) H 10/04/18 05:30 Assessment/Plan ASSESSMENT/PLAN: Rapid AFib improving Relative Hypotension improved HTN HPL Vomiting (?) Sepsis ABDOUL CKD ABX O2 as needed rate control meds as per Cardiology PO as tolerated Heat pack to left breast Eliquis Normal transfusion thresholds Follow I & O DR GODDARD
[2018-10-09] MEDS ORDERED: METOPROLOL TARTRATE 50 MG TABLET (FP) PO SCH ×2 (11:35→11:36)
--- NOTE | 2018-10-09 11:52 | PN ---
Progress Note, Physician Chief Complaint: Pt alert and oriented; lying in bed; denies chest pain, shortness of breath, or palpitations; weak. Her son is at bedside. - Current Medication List Current Medications: Active Medications Acetaminophen (Tylenol -) 500 mg PO Q8H PRN PRN Reason: PAIN 1-3 Last Admin: 10/08/18 21:34 Dose: 500 mg Allopurinol (Zyloprim -) 100 mg PO DAILY [facility] Last Admin: 10/09/18 09:29 Dose: 100 mg Apixaban (Eliquis -) 2.5 mg PO BID [facility] Last Admin: 10/09/18 09:28 Dose: 2.5 mg Atorvastatin Calcium (Lipitor -) 10 mg PO HS [facility] Last Admin: 10/08/18 21:33 Dose: 10 mg Bethanechol Chloride (Urecholine -) 25 mg PO QID [facility] Last Admin: 10/09/18 09:29 Dose: 25 mg Collagenase (Santyl -) 1 applic TP DAILY [facility]; Protocol Last Admin: 10/08/18 09:14 Dose: 1 applic Diltiazem HCl (Cardizem Cd -) 120 mg PO DAILY [facility] Docusate Sodium (Colace -) 200 mg PO HS [facility] Last Admin: 10/08/18 21:33 Dose: 200 mg Docusate Sodium (Colace -) 100 mg PO DAILY [facility] Last Admin: 10/09/18 09:28 Dose: 100 mg Metoprolol Tartrate (Lopressor Injection -) 5 mg IVPUSH Q4H PRN PRN Reason: HR >40 Last Admin: 10/06/18 05:33 Dose: 5 mg Metoprolol Tartrate (Lopressor -) 75 mg PO BID [facility] Ondansetron HCl (Zofran Injection) 4 mg IVPB Q8H PRN PRN Reason: NAUSEA Ropinirole HCl (Requip -) 1 mg PO HS [facility] Last Admin: 10/08/18 21:34 Dose: 1 mg Senna (Senna -) 2 tab PO HS [facility] Last Admin: 10/08/18 21:34 Dose: 2 tab Timolol Maleate (Timoptic 0.5%) 1 drop OU BID [facility] Last Admin: 10/09/18 09:29 Dose: 1 drop - Objective Vital Signs: Vital Signs Temperature 97.9 F 10/09/18 09:36 Pulse Rate 113 H 10/09/18 09:36 Respiratory Rate 20 10/09/18 09:36 Blood Pressure 110/61 10/09/18 09:36 O2 Sat by Pulse Oximetry (%) 97 10/09/18 09:00 Labs: CBC, BMP 10/09/18 05:30 10/09/18 05:30 INR, PTT INR 1.67 (0.83-1.09) H 10/04/18 05:30 Problem List - Problems (1) Acute on chronic systolic and diastolic heart failure, NYHA class 1 Assessment/Plan: ECHO: mildly reduced LVEF; moderate TR with RVSP at least 40 mmHg; moderate LAE ; mild SAAD; mild MR and MS; small pericardial effusion; + pleural effusion. On metoprolol. Add ACEI or ARB when renal function (presently reduced) and BP allow. F/u BUN/Cr, electrolytes, Is and Os, daily weight. Code(s): I50.43 - ACUTE ON CHRONIC COMBINED SYSTOLIC AND DIASTOLIC HRT FAIL (2) Atrial fibrillation with RVR Assessment/Plan: Increased metoprolol tartrate.(changed to 75 mg bid for easier compliance, as discussed with RN and pt's son). On diltiazem CD 120 mg daily; off diltiazem IV drip. On apixaban for anticoagulation. TSH mildly elevated; normal Free T4. Maintain electrolytes (keep K 4-4.5, Mg 2-2.4; PO4 2.5-4.9). Code(s): I48.91 - UNSPECIFIED ATRIAL FIBRILLATION (3) Shortness of breath Code(s): R06.02 - SHORTNESS OF BREATH (4) Weakness Code(s): R53.1 - WEAKNESS (5) Chronic kidney disease Code(s): N18.9 - CHRONIC KIDNEY DISEASE, UNSPECIFIED Qualifiers: Chronic kidney disease stage: stage 2 (mild) Qualified Code(s): N18.2 - Chronic kidney disease, stage 2 (mild) (6) Hypercholesterolemia Assessment/Plan: On atorvastatin; total cholesterol 96 mg/dL (02/2018). Code(s): E78.00 - PURE HYPERCHOLESTEROLEMIA, UNSPECIFIED (7) Osteoarthritis Code(s): M19.90 - UNSPECIFIED OSTEOARTHRITIS, UNSPECIFIED SITE Qualifiers: Osteoarthritis location: knee Osteoarthritis type: unspecified Laterality : right Qualified Code(s): M17.11 - Unilateral primary osteoarthritis, right knee (8) Hypomagnesemia Assessment/Plan: repleted, keep 2.0-2.4 Keep K 4-4.5; PO4 2.5-4.9. Code(s): E83.42 - HYPOMAGNESEMIA
--- NOTE | 2018-10-09 12:40 | DS ---
Physical Exam: SUBJECTIVE: Patient seen and examined. Patient reports she is feeling well, no SOB, chest pain, or abdominal pain. Patient cleared by cardiology to be d/josep back to [facility] for subacute rehab. MBS today. OBJECTIVE: Vital Signs Period Temp Pulse Resp BP Sys/Kraus Pulse Ox Last 24 Hr 97.1 F-97.9 F 78-113 18-20 103-137/40-95 97-100 PHYSICAL EXAM GENERAL: Elderly, frail, more alert today, fully oriented HEAD: Normal with no signs of trauma. EYES: Extraocular movements intact, sclera anicteric, conjunctiva clear. No lid lag. EARS, NOSE, THROAT: Ears normal, nares patent NECK: Normal range of motion, supple LUNGS: Diminished breath sounds, no wheezing. No accessory muscle use. HEART: Irregularly irregular, no murmurs appreciated ABDOMEN: Soft, nontender, not distended, normoactive bowel sounds, no guarding, no rebound, no masses. No hepatomegaly or splenomegaly. MUSCULOSKELETAL: Normal range of motion at all joints. Enlarged knees . No CVA tenderness. LOWER EXTREMITIES: R>L leg, non-pitting, warm, well-perfused. No calf tenderness. NEUROLOGICAL: No facial droop, tongue midline PSYCHIATRIC: Appears anxious SKIN: Warm, dry LABS Laboratory Results - last 24 hr 10/09/18 10/09/18 05:30 05:30 WBC 10.2 H RBC 3.62 Hgb 10.0 L Hct 32.5 MCV 89.7 MCH 27.7 MCHC 30.9 L RDW 18.4 H Plt Count 341 MPV 8.1 Sodium 143 Potassium 4.0 Chloride 108 H Carbon Dioxide 30 Anion Gap 5 L BUN 15 Creatinine 1.2 Creat Clearance w eGFR 42.30 Random Glucose 91 Calcium 9.2 Magnesium 2.5 H HOSPITAL COURSE: Date of Admission:10/03/18 Date of Discharge: 10/09/18 88 year old female with a PMH significant for A-fib (on Eliquis), diastolic CHF , HTN, HLD, gout, glaucoma, osteoarthritis presented to the ED from sub acute rehab with elevated pulse in the 130s since Monday. She was seen by cardiology in the ED; A-fib with RVR and questionable infectious process. Afib with RVR - Likely triggered by infectious process - Discharged ICU now on telemetry floor - [facility] SYLVIA hoangip at 2.5 mg/hr, continue to wean down - 120 PO q day - No acute events overnight, HR improved 70 -80s - Seen by [employer] science teacher Dr. Zavala today - Discontinue dilt gtt d/josep yesterday - Cardizem 150 mg PO qday - Will not increase as last echocardiogram with mild LV dysfunction - Started on Digoxin 0.125 mg QOD - Metoprolol Tartrate changed to 75 mg PO BID for easier compliance - Consider starting Amiodarone if HR does not improve over next 24-48 hours - Telemetry monitoring - Continue Eliquis 2.5 mg PO BID Elevated TSH - 4.04 - FT4 WNL 0.99 Possible UTI - Negative UA but positive urine culture with M. morganii - Followed by ID specialist Dr. Best - Completed 5 day course of Ceftriaxone 1 GM qday, d/josep yesterday per ID ABDOUL on CKD - Improved - Cr now 1.2 (Baseline Cr 1.2 - 1.4) - Renal US negative for hydronephrosis, b/l atrophy, unchanged from 07/19/17 study - Likely prerenal as resolved with fluids - Monitor BMP and urinary output HTN - Normotensive - Hold home Losartan 25 mg PO qday to prevent drop in pressure; continue when clinically appropriate. Infiltrate vs. atelectesis at L base - Hospitalized in [facility] 1 month ago and treated for sepsis with 10 day course of Levaquin. - Followed by hall supervisor Dr. Willoughby - O2 via NC @ 2 LPM Diastolic CHF - ECHO: mildly reduced LVEF; moderate TR with RVSP at least 40 mmHg; moderate LAE; mild SAAD; mild MR and NH; small pericardial effusion; + pleural effusion. - On metoprolol - Add ACEI or ARB when renal function (presently reduced) and BP allow. - F/u BUN/Cr, electrolytes, Is and Os, daily weight. HLD - Total cholesterol 96 on 02/2018 - Atorvastatin 10 mg PO qhs Right heel pressure ulcer - Daily wound care with Santyl - Offload pressure to heel Gout - Allopurinol 100 mg PO qday Glaucoma - Timolol 0.5% 1 gtt OU BID Urinary Retention - Bethanechol Chloride 25 mg PO QID Restless leg syndrome - Continue Ropinirole 1 mg PO qday Pain Management - Actaminophen 500 mg PO q8h PRN Bowel regimen - Colace 100 mg qam, 200 mg QHS - Senna 2 tabs PO qhs Prophylaxis - DVT: On Eliquis 2.5 mg PO BID [facility] - PO intake adequate - Replete as indicated - Mechanical soft diet with extra gravy, nectar thickened liquid with free water between meals. Minutes to complete discharge: 35 Discharge Summary Reason For Visit: WEAKNESS; ACUTE RENAL FAILURE;ATRIAL FLUTTER WITH Current Active Problems Acute on chronic systolic and diastolic heart failure, NYHA class 1 (Acute) Hypomagnesemia (Acute) Condition: Stable - Instructions Diet, Activity, Other Instructions: Waldemar Ignacio were admitted to [facility] from 10/03 -10/09/18. You were treated for Atrial Fibrilation and UTI with antibiotics. Several changes were made to your medication regimen: STOP taking Losartan START: Cardizem 120 mg once a day Digoxin 0.125 mg every other day Metoprolol Tartrate 75 mg twice a day. You had a modified barrium swallow and your diet has been upgraded to: - Mechanical soft diet with extra gravy - [place] thickened liquid - Free water between meals Please return to the ER if you have any signs or symptoms of chest pain, shortness of breath, uncontrollable fever, chills, nausea, vomiting, numbness, tingling, or weakness in any part of your body, changes in vision, or slurred speech. [facility] [phone] Referrals: Mami Ku MD [Primary Care Provider] - Disposition: [facility] FACILITY - Home Medications Comprehensive Discharge Medication List: Ambulatory Orders Simvastatin 20 mg PO HS 04/10/17 Timolol 0.5% [Timoptic 0.5%] 1 drop OU BID 04/10/17 Apixaban [Eliquis] 2.5 mg PO BID #28 tablet 04/14/17 Diltiazem [Cardizem -] 90 mg PO BID #90 tablet 08/22/18 Docusate Sodium [Colace -] 100 mg PO DAILY #30 capsule 08/22/18 Furosemide [Lasix -] 40 mg PO DAILY #60 tablet 08/22/18 Losartan Potassium [Cozaar -] 25 mg PO DAILY #30 tablet 08/22/18 Metoprolol Succinate [Toprol XL -] 25 mg PO DAILY #30 tab.sr.24h 08/22/18 Ropinirole HCl [Requip -] 1 mg PO DAILY #30 tablet 08/22/18 Acetaminophen [Extra Strength Non-Aspirin] 500 mg PO Q8H PRN 10/03/18 Allopurinol [Zyloprim -] 100 mg PO DAILY 10/03/18 Bethanechol Chloride [Urecholine -] 25 mg PO QID 10/03/18 Collagenase Clostridium Hist. [Santyl] 1 applic TP DAILY 10/03/18 Docusate Sodium [Colace] 200 mg PO HS 10/03/18 Lactobacillus Acidophilus [Bacid -] 1 each PO 10/03/18 Sennosides [Senna] 2 tab PO HS 10/03/18 This patient is new to me today: No Emergency Visit: No Critical Care patient: No - Discharge Referral Referred to [facility] No
[2018-10-09 12:54] VITALS: BMI 24.5
[2018-10-09] MEDS ORDERED: BISACODYL 10 MG SUPP.RECT RC ONE (13:02)
[2018-10-09] MEDS ORDERED: PT OWN MED DRAWER 7, Y5N ONE (13:51)
[2018-10-09] MEDS: COLLAGENASE CLOSTRIDIUM HIST. 30 GRAMS TUBE TP SCH (13:53)
--- NOTE | 2018-10-09 14:34 | PN ---
Progress Note, Physician History of Present Illness: stable no new issues more awake son in the room has been stable off of abx - Current Medication List Current Medications: Active Medications Acetaminophen (Tylenol -) 500 mg PO Q8H PRN PRN Reason: PAIN 1-3 Last Admin: 10/08/18 21:34 Dose: 500 mg Allopurinol (Zyloprim -) 100 mg PO DAILY [facility] Last Admin: 10/09/18 09:29 Dose: 100 mg Apixaban (Eliquis -) 2.5 mg PO BID [facility] Last Admin: 10/09/18 09:28 Dose: 2.5 mg Atorvastatin Calcium (Lipitor -) 10 mg PO HS [facility] Last Admin: 10/08/18 21:33 Dose: 10 mg Bethanechol Chloride (Urecholine -) 25 mg PO QID [facility] Last Admin: 10/09/18 13:54 Dose: 25 mg Collagenase (Santyl -) 1 applic TP DAILY [facility]; Protocol Last Admin: 10/09/18 13:53 Dose: 1 applic Diltiazem HCl (Cardizem Cd -) 120 mg PO DAILY [facility] Docusate Sodium (Colace -) 200 mg PO HS [facility] Last Admin: 10/08/18 21:33 Dose: 200 mg Docusate Sodium (Colace -) 100 mg PO DAILY [facility] Last Admin: 10/09/18 09:28 Dose: 100 mg Metoprolol Tartrate (Lopressor Injection -) 5 mg IVPUSH Q4H PRN PRN Reason: HR >40 Last Admin: 10/06/18 05:33 Dose: 5 mg Metoprolol Tartrate (Lopressor -) 75 mg PO BID [facility] Ondansetron HCl (Zofran Injection) 4 mg IVPB Q8H PRN PRN Reason: NAUSEA Ropinirole HCl (Requip -) 1 mg PO HS [facility] Last Admin: 10/08/18 21:34 Dose: 1 mg Senna (Senna -) 2 tab PO HS [facility] Last Admin: 10/08/18 21:34 Dose: 2 tab Timolol Maleate (Timoptic 0.5%) 1 drop OU BID [facility] Last Admin: 10/09/18 09:29 Dose: 1 drop - Objective Vital Signs: Vital Signs Temperature 97.9 F 10/09/18 09:36 Pulse Rate 113 H 10/09/18 09:36 Respiratory Rate 20 10/09/18 09:36 Blood Pressure 110/61 10/09/18 09:36 O2 Sat by Pulse Oximetry (%) 97 10/09/18 09:00 Constitutional: Yes: No Distress, Calm Cardiovascular: Yes: Regular Rate and Rhythm Respiratory: Yes: Regular, On Nasal O2, Poor Air Entry (bases) Gastrointestinal: Yes: Normal Bowel Sounds, Soft Musculoskeletal: Yes: WNL Extremities: Yes: Other Neurological: Yes: Alert Labs: CBC, BMP 10/09/18 05:30 10/09/18 05:30 INR, PTT INR 1.67 (0.83-1.09) H 10/04/18 05:30 Assessment/Plan AFib Hypotension HTN HPL Vomiting Sepsis ABDOUL CKD uti cx results noted plan stable off of abx nutrition rest as per the team d/w the son
[2018-10-09 14:45] VITALS: BP 110/44; PULSE 79; TEMP 97.8
== END 2018-10-09 17:22 | DRG 871 ==
LOC: JER 10:54 → JERBED 18:19 → JICU 20:25 → J4W 10-04 16:53
PROVIDERS: ADMIT Internal Medicine; ATTEND Nurse Practitioner Adult Health
DX: A41.9 Sepsis, unspecified organism (principal); J18.9 Pneumonia, unspecified organism; G93.41 Metabolic encephalopathy; I50.43 Acute on chronic combined systolic (congestive) and diastolic (congestive) heart failure; N17.9 Acute kidney failure, unspecified; I13.0 Hypertensive heart and chronic kidney disease with heart failure and stage 1 through stage 4 chronic kidney disease, or unspecified chronic kidney disease; N39.0 Urinary tract infection, site not specified; I48.92 Unspecified atrial flutter; J98.11 Atelectasis; I48.0 Paroxysmal atrial fibrillation; I11.0 Hypertensive heart disease with heart failure; E78.5 Hyperlipidemia, unspecified; M10.9 Gout, unspecified; H40.9 Unspecified glaucoma; R33.9 Retention of urine, unspecified; G25.81 Restless legs syndrome; I95.9 Hypotension, unspecified; N18.2 Chronic kidney disease, stage 2 (mild); R53.1 Weakness; E83.42 Hypomagnesemia; R62.7 Adult failure to thrive; F03.90 Unspecified dementia, unspecified severity, without behavioral disturbance, psychotic disturbance, mood disturbance, and anxiety; K59.00 Constipation, unspecified; D64.9 Anemia, unspecified; E86.0 Dehydration; L89.611 Pressure ulcer of right heel, stage 1
CPT/HCPCS: 36415; 71045-TC-FY; 74230-TC-FY; 76775-TC; 80048; 80053; 81003; 81015; 82550; 82803; 83605; 83735; 84100; 84134; 84439; 84443; 84484; 85025; 85027; 85610; 85730; 87040; 87086; 87186; 92611-GN; 93005; 93010; 99284-25; J7030

== ENCOUNTER 2018-11-05 11:44 | Inpatient (IN) | payer OTHER, BC ==
[2018-11-05 11:47] VITALS: BMI 25.6
--- NOTE | 2018-11-05 12:03 | PDOC ---
History of Present Illness - General Chief Complaint: Weakness Stated Complaint: SICK Time Seen by Provider: 11/05/18 12:01 History Source: Patient, Family Exam Limitations: No Limitations - History of Present Illness Initial Comments: 11/05/18 12:04 88 year old female with a history of afib (on eliquis), diastolic CHF, HTN, HLD , gout, glaucoma, osteoarthritis who presents from [facility] because of increased oxygen requirement. The patient usually requires 2L NC at night but has been needing 4L nc during the day for the past 1 day. The patient has been coughing for two days productive of yellow and clear phlegm. The nursing staff notified the son that the patient's legs had been getting more swollen. The patient complains of some chronic intermittent suprapubic abdominal but denies chest pain, new abdominal pain, dysuria, hematuria or fever. The patient is compliant with all medications. Past History - Past Medical History Allergies/Adverse Reactions: Allergies Allergy/AdvReac Type Severity Reaction Status Date / Time amoxicillin Allergy Verified 11/05/18 11:47 Home Medications: Ambulatory Orders Simvastatin 20 mg PO HS 04/10/17 Timolol 0.5% [Timoptic 0.5%] 1 drop OU BID 04/10/17 Apixaban [Eliquis] 2.5 mg PO BID #28 tablet 04/14/17 Ropinirole HCl [Requip -] 1 mg PO DAILY #30 tablet 08/22/18 Acetaminophen [Extra Strength Non-Aspirin] 500 mg PO Q8H PRN 10/03/18 Allopurinol [Zyloprim -] 100 mg PO DAILY 10/03/18 Bethanechol Chloride [Bethanechol Chloride -] 25 mg PO QID 10/03/18 Collagenase Clostridium Hist. [Santyl -] 1 applic TP DAILY 10/03/18 Docusate Sodium [Colace] 200 mg PO HS 10/03/18 Lactobacillus Acidophilus [Bacid -] 1 each PO DAILY 10/03/18 Sennosides [Senna] 2 tab PO HS 10/03/18 Digoxin [Lanoxin -] 0.125 mg PO Q48H tablet 10/09/18 Diltiazem Cd [Cardizem Cd -] 120 mg PO DAILY cap.cd.24h 10/09/18 Metoprolol Tartrate [Lopressor -] 75 mg PO BID tablet 10/09/18 Levothyroxine [Synthroid -] 25 mcg PO DAILY 11/05/18 Polyethylene Glycol 3350 [Miralax (For Daily Use) -] 17 gm PO BID 11/05/18 Tramadol HCl 50 mg PO HS 11/05/18 Levofloxacin [Levaquin] 250 mg PO DAILY #4 tablet 11/07/18 Metoprolol Tartrate [Lopressor -] 25 mg PO BID tablet 11/07/18 Furosemide [Lasix] 40 mg PO DAILY #30 tablet 11/08/18 Anemia: Yes Asthma: No Cancer: No Cardiac Disorders: Yes (ATRIAL FIBRILLATION) CVA: No COPD: No CHF: Yes Dementia: Yes Diabetes: No GI Disorders: Yes (DYSPHAGIA) Disorders: No HTN: Yes Hypercholesterolemia: Yes Liver Disease: No Seizures: No Thyroid Disease: No - Surgical History Abdominal Surgery: No Appendectomy: No Cardiac Surgery: No Cholecystectomy: No Lung Surgery: No Orthopedic Surgery: No - Suicide/Smoking/Psychosocial Hx Smoking History: Never smoked Have you smoked in the past 12 months: No Number of Cigarettes Smoked Daily: 0 Hx Alcohol Use: No Drug/Substance Use Hx: No Substance Use Type: None Hx Substance Use Treatment: No Review of Systems - Review of Systems Able to Perform ROS?: Yes Is the patient limited Lao proficient: No Constitutional: No: Chills, Diaphoresis, Fever HEENTM: No: Blurred Vision, Tinnitus Respiratory: Yes: Shortness of Breath. No: Cough, Orthopnea Cardiac (ROS): No: Chest Pain, Lightheadedness, Palpitations, Syncope ABD/GI: No: Constipated, Diarrhea, Nausea, Vomiting : No: Burning, Dysuria, Hematuria, Incontinence Musculoskeletal: No: Back Pain, Muscle Weakness, Neck Pain Neurological: No: Headache, Numbness, Tingling *Physical Exam - Vital Signs Last Vital Signs Temp Pulse Resp BP Pulse Ox 98.3 F 75 18 138/68 99 11/05/18 11:45 11/05/18 11:45 11/05/18 11:45 11/05/18 11:45 11/05/18 11:45 - Physical Exam Comments: 11/05/18 12:53 decreased breath sounds in both lung jewell. 1+ pitting edema from knees to toes bilaterally R heel 1cm diameter stage 1 ulcer Moderate Sedation - Procedure Monitoring Vital Signs: Procedure Monitoring Vital Signs Temperature 98.3 F 11/05/18 11:45 Pulse Rate 75 11/05/18 11:45 Respiratory Rate 18 11/05/18 11:45 Blood Pressure 138/68 11/05/18 11:45 O2 Sat by Pulse Oximetry (%) 99 11/05/18 11:45 ED Treatment Course - LABORATORY CBC & Chemistry Diagram: 11/06/18 Unknown 11/06/18 06:29 Medical Decision Making - Medical Decision Making 11/05/18 12:49 88 year old female with a history of afib (on eliquis), diastolic CHF, HTN, HLD , gout, glaucoma, osteoarthritis who presents from [facility] because of increased oxygen requirement. The patient usually requires 2L NC at night but has been needing 4L nc during the day for the past 1 day. The patient has been coughing for two days productive of yellow and clear phlegm. The nursing staff notified the son that the patient's legs had been getting more swollen. ED Course: consider pna vs chf exacerbation vs acs vs arrythmia EKG: afib 87bpm, no interval abnormalities, narrow QRS, ST and T wave segments and morphology normal. cbc, cmp, cxr, ekg, bnp, pt,ptt CXR: midline airway, increased vascular markings, increased R opacification, slight blunting of R costophrenic angle, + cardiomegaly, as read by this automobile service writer and attending. 11/05/18 15:46 Patient updated on labs, reports that she previously got iron infusions but stopped in Jul when she was admitted to the hospital *DC/Admit/Observation/Transfer Diagnosis at time of Disposition: Acute on chronic diastolic (congestive) heart failure - Discharge Dispostion Disposition: NURSING HOME FACILITY Condition at time of disposition: Stable Decision to Admit order: Yes - Prescriptions - Referrals - Patient Instructions - Post Discharge Activity
--- NOTE | 2018-11-05 12:32 | PDOC ---
Attending Attestation - HPI HPI: 11/05/18 12:58 The patient is an 88 year old female, residing at [facility], with a history of afib on eliquis,diastolic CHF, HTN, HLD, gout, glaucoma, and osteoarthritis presenting with one day history of increased oxygen need from 2L of oxygen at night to 4L during the day. Patient also admits to a cough productive of clear to yellow phlegm. Patient states she is complaint with her meds. The patient denies chest pain, headache and dizziness. Denies fever, chills, nausea, vomit, diarrhea and constipation. Denies dysuria, frequency, urgency and hematuria. Allergies: NKA Past surgical history: None reported. Social history: No reported alcohol, drug or cigarette use. PCP: Dr. Fernando <Katie Smith - Last Filed: 11/05/18 13:03> - Resident Resident Name: Bhumika Felix - ED Attending Attestation I have performed the following: I have examined & evaluated the patient, The case was reviewed & discussed with the resident, I agree w/resident's findings & plan, Exceptions are as noted - Physicial Exam PE: GENERAL: Awake, alert, and fully oriented, in no acute distress HEAD: No signs of trauma EYES: PERRLA, EOMI, sclera anicteric, conjunctiva clear ENT: Auricles normal inspection, hearing grossly normal, nares patent, oropharynx clear without exudates. Moist mucosa NECK: Normal ROM, supple, no lymphadenopathy, JVD, or masses LUNGS: Tachypneic, +abdominal retractions. Dec air entry B/L. HEART: Regular rate and rhythm, normal S1 and S2, no murmurs, rubs or gallops ABDOMEN: Soft, nontender, normoactive bowel sounds. No guarding, no rebound. No masses EXTREMITIES: Normal range of motion, 2+ pitting edema to BLE (to mid-costello). No clubbing or cyanosis. No cords or tenderness. +R heel stage 1 ulcer. NEUROLOGICAL: Cranial nerves II through XII grossly intact. Normal speech. Motor and sensation intact SKIN: Warm, Dry, normal turgor, no rashes or lesions noted. - Medical Decision Making Pt with increased oxygen requirement, difficulty breathing, noted to have retractions on exam. Will obtain CXR and labs. Likely admit. <Dimple Tejeda - Last Filed: 11/05/18 16:19>
[2018-11-05 14:11] LABS: INR 1.41 (0.83-1.09); PROTHROMBIN TIME (PATIENT) 16.7 SEC (9.7-13.0)
[2018-11-05 14:13] LABS: ACTIVATED PTT 36.5 SECONDS (25.2-36.5)
[2018-11-05 14:38] LABS: URINE APPEARANCE CLEAR; URINE BILIRUBIN NEGATIVE (<2.0 mg/dL); URINE COLOR YELLOW; URINE GLUCOSE (UA) NEGATIVE (NEGATIVE); URINE KETONE NEGATIVE (NEGATIVE); URINE LEUK ESTERASE NEGATIVE (NEGATIVE); URINE NITRITE NEGATIVE (NEGATIVE); URINE PROTEIN 2+ (NEGATIVE); URINE UROBILINOGEN NEGATIVE mg/dL (0.2-1.0)
[2018-11-05 14:39] LABS: BASO % 0.6 % (0-2.0); EOS % 1.1 % (0-4.5); HEMOGLOBIN 8.8 GM/dL (10.7-15.3); LYMPH % 18.6 % (8-40); MCH 27.5 pg (25.7-33.7); MCHC 31.3 g/dl (32.0-36.0); MEAN CELL VOLUME 87.8 fl (80-96); MEAN PLT VOLUME 7.7 fl (7.5-11.1); NEUT % 54.7 % (42.8-82.8); PLATELET COUNT 384 K/MM3 (134-434); RBC 3.19 M/mm3 (3.60-5.2); RDW 18.4 % (11.6-15.6)
[2018-11-05 14:50] LABS: EPI CELLS RARE /HPF (FEW); URINE MUCUS RARE
[2018-11-05 15:04] LABS: ALBUMIN 2.7 g/dl (3.4-5.0); ALK PHOS 95 U/L (45-117); ANION GAP 5 MMOL/L (8-16); BILIRUBIN,TOTAL 1.1 mg/dL (0.2-1); BLOOD UREA NITROGEN 18 mg/dL (7-18); CALCIUM 8.2 mg/dL (8.5-10.1); CHLORIDE 101 mmol/L (98-107); CO2 32 mmol/L (21-32); CREATININE 0.9 mg/dL (0.55-1.3); GLUCOSE,RANDOM 95 mg/dL (74-106); N-TERMINAL BNP 13227.1 pg/ml (5-450); SGOT/AST 28 U/L (15-37); SGPT/ALT 12 U/L (13-61); SODIUM 138 mmol/L (136-145); TOT PROT 5.7 g/dl (6.4-8.2)
[2018-11-05] MEDS ORDERED: FUROSEMIDE 40 MG/4 ML INJECTABLE VIAL IVPUSH ONE (15:15)
[2018-11-05] MEDS ORDERED: FUROSEMIDE 40 MG/4 ML INJECTABLE VIAL ONE (15:34)
[2018-11-05 15:43] LABS: ACANTHOCYTES 1+; ANISOCYTOSIS 0; MACROCYTOSIS 0; OVALOCYTE 1+; PLATELET ESTIMATE NORMAL; TEAR DROP CELLS 1+
--- NOTE | 2018-11-05 16:52 | HP ---
Admitting History and Physical - Primary Care Physician PCP: Kal Pereira - Admission History of Present Illness: 88 year old female with a history of afib (on eliquis), diastolic CHF, HTN, HLD , gout, glaucoma, osteoarthritis who presents from [facility] because of increased oxygen requirement. The patient usually requires 2L NC at night but has been needing 4L nc during the day for the past 1 day. The patient has been coughing for two days productive of yellow and clear phlegm. The nursing staff notified the son that the patient's legs had been getting more swollen. The patient complains of some chronic intermittent suprapubic abdominal but denies chest pain, new abdominal pain, dysuria, hematuria or fever. The patient is compliant with all medications. - Past Medical History Cardiovascular: Yes: AFIB (New onset), CHF (diastolic CHF per records), HTN, Hyperlipdemia Heme/Onc: Yes: Anemia Musculoskeletal: Yes: Osteoarthritis - Past Surgical History Past Surgical History: Yes: Hysterectomy - Smoking History Smoking history: Never smoked Have you smoked in the past 12 months: No Aproximately how many cigarettes per day: 0 - Alcohol/Substance Use Hx Alcohol Use: No History of Substance Use: reports: None Home Medications - Allergies Allergies/Adverse Reactions: Allergies Allergy/AdvReac Type Severity Reaction Status Date / Time amoxicillin Allergy Verified 11/05/18 11:47 - Home Medications Home Medications: Ambulatory Orders Simvastatin 20 mg PO HS 04/10/17 Timolol 0.5% [Timoptic 0.5%] 1 drop OU BID 04/10/17 Apixaban [Eliquis] 2.5 mg PO BID #28 tablet 04/14/17 Ropinirole HCl [Requip -] 1 mg PO DAILY #30 tablet 08/22/18 Acetaminophen [Extra Strength Non-Aspirin] 500 mg PO Q8H PRN 10/03/18 Allopurinol [Zyloprim -] 100 mg PO DAILY 10/03/18 Bethanechol Chloride [Bethanechol Chloride -] 25 mg PO QID 10/03/18 Collagenase Clostridium Hist. [Santyl -] 1 applic TP DAILY 10/03/18 Docusate Sodium [Colace] 200 mg PO HS 10/03/18 Lactobacillus Acidophilus [Bacid -] 1 each PO DAILY 10/03/18 Sennosides [Senna] 2 tab PO HS 10/03/18 Digoxin [Lanoxin -] 0.125 mg PO Q48H tablet 10/09/18 Diltiazem Cd [Cardizem Cd -] 120 mg PO DAILY cap.cd.24h 10/09/18 Metoprolol Tartrate [Lopressor -] 75 mg PO BID tablet 10/09/18 Levothyroxine [Synthroid -] 25 mcg PO DAILY 11/05/18 Polyethylene Glycol 3350 [Miralax (For Daily Use) -] 17 gm PO BID 11/05/18 Tramadol HCl 50 mg PO HS 11/05/18 Physical Examination Vital Signs: Vital Signs Temperature 98.3 F 11/05/18 11:45 Pulse Rate 75 11/05/18 11:45 Respiratory Rate 18 11/05/18 11:45 Blood Pressure 138/68 11/05/18 11:45 O2 Sat by Pulse Oximetry (%) 99 11/05/18 11:45 Constitutional: Yes: No Distress HENT: Yes: Atraumatic Neck: Yes: Supple Cardiovascular: Yes: Regular Rate and Rhythm Respiratory: Yes: Rales, Rhonchi Gastrointestinal: Yes: Normal Bowel Sounds Extremities: Yes: WNL Edema: Yes Peripheral Pulses WNL: Yes Neurological: Yes: Alert, Oriented Labs: CBC, BMP 11/05/18 13:20 11/05/18 13:20 Imaging - Results Chest X-ray: Report Reviewed Problem List - Problems (1) Acute on chronic diastolic (congestive) heart failure Assessment/Plan: iv lasix continue home meds Code(s): I50.33 - ACUTE ON CHRONIC DIASTOLIC (CONGESTIVE) HEART FAILURE (2) Atrial fibrillation with RVR Assessment/Plan: continue meds Code(s): I48.91 - UNSPECIFIED ATRIAL FIBRILLATION (3) Chronic kidney disease Assessment/Plan: monitor Code(s): N18.9 - CHRONIC KIDNEY DISEASE, UNSPECIFIED Qualifiers: (4) HTN (hypertension) Assessment/Plan: monitor on meds Code(s): I10 - ESSENTIAL (PRIMARY) HYPERTENSION Qualifiers: (5) Hypercholesterolemia Code(s): E78.00 - PURE HYPERCHOLESTEROLEMIA, UNSPECIFIED (6) Osteoarthritis Code(s): M19.90 - UNSPECIFIED OSTEOARTHRITIS, UNSPECIFIED SITE Qualifiers: Assessment/Plan Laboratory Tests 11/05/18 11/05/18 11/05/18 13:20 13:20 13:20 WBC 8.0 RBC 3.19 L Hgb 8.8 L Hct 28.0 L MCV 87.8 MCH 27.5 MCHC 31.3 L RDW 18.4 H Plt Count 384 MPV 7.7 Absolute Neuts (auto) 4.4 Neutrophils % 54.7 D Neutrophils % (Manual) 57.3 Band Neutrophils % 0.0 Lymphocytes % 18.6 Lymphocytes % (Manual) 4.2 L D Monocytes % 25.0 H D Monocytes % (Manual) 21 H Eosinophils % 1.1 D Eosinophils % (Manual) 2.1 Basophils % 0.6 Basophils % (Manual) 0.0 Myelocytes % (Man) 0 D Promyelocytes % (Man) 0 Blast Cells % (Manual) 0 Nucleated RBC % 0 Metamyelocytes 0 D Hypochromia 1+ Platelet Estimate Normal Polychromasia 1+ Poikilocytosis 1+ Anisocytosis 0 Microcytosis 0 Macrocytosis 0 Spherocytes 1+ Tear Drop Cells 1+ Ovalocytes 1+ Acanthocytes (Spur) 1+ PT with INR 16.70 H INR 1.41 H PTT (Actin FS) 36.5 Sodium 138 Potassium 5.0 Chloride 101 Carbon Dioxide 32 Anion Gap 5 L BUN 18 Creatinine 0.9 Creat Clearance w eGFR 58.95 Random Glucose 95 Calcium 8.2 L Total Bilirubin 1.1 H AST 28 ALT 12 L Alkaline Phosphatase 95 Troponin I 0.02 B-Natriuretic Peptide 56273.1 H Total Protein 5.7 L Albumin 2.7 L Urine Color Urine Appearance Urine pH Ur Specific Hoven Urine Protein Urine Glucose (UA) Urine Ketones Urine Blood Urine Nitrite Urine Bilirubin Urine Urobilinogen Ur Leukocyte Esterase Urine WBC (Auto) Urine RBC (Auto) Ur Epithelial Cells Urine Mucus Stool Occult Blood 11/05/18 11/05/18 14:15 15:34 WBC RBC Hgb Hct MCV MCH MCHC RDW Plt Count MPV Absolute Neuts (auto) Neutrophils % Neutrophils % (Manual) Band Neutrophils % Lymphocytes % Lymphocytes % (Manual) Monocytes % Monocytes % (Manual) Eosinophils % Eosinophils % (Manual) Basophils % Basophils % (Manual) Myelocytes % (Man) Promyelocytes % (Man) Blast Cells % (Manual) Nucleated RBC % Metamyelocytes Hypochromia Platelet Estimate Polychromasia Poikilocytosis Anisocytosis Microcytosis Macrocytosis Spherocytes Tear Drop Cells Ovalocytes Acanthocytes (Spur) PT with INR INR PTT (Actin FS) Sodium Potassium Chloride Carbon Dioxide Anion Gap BUN Creatinine Creat Clearance w eGFR Random Glucose Calcium Total Bilirubin AST ALT Alkaline Phosphatase Troponin I B-Natriuretic Peptide Total Protein Albumin Urine Color Yellow Urine Appearance Clear Urine pH 5.0 Ur Specific Hoven 1.015 Urine Protein 2+ H Urine Glucose (UA) Negative Urine Ketones Negative Urine Blood 3+ H Urine Nitrite Negative Urine Bilirubin Negative Urine Urobilinogen Negative Ur Leukocyte Esterase Negative Urine WBC (Auto) 2 Urine RBC (Auto) 24 Ur Epithelial Cells Rare Urine Mucus Rare Stool Occult Blood Negative Active Medications Generic Name Dose Route Start Last Admin Trade Name Freq PRN Reason Stop Dose Admin Allopurinol 100 mg 11/06/18 10:00 11/06/18 09:49 Zyloprim - PO 100 mg DAILY ROSEANNE Administration Atorvastatin Calcium 10 mg 11/05/18 22:00 11/05/18 22:14 Lipitor - PO 10 mg HS ROSEANNE Administration Digoxin 0.125 mg 11/05/18 18:00 11/05/18 19:00 Lanoxin - PO 0.125 mg Q48H ROSEANNE Administration Diltiazem HCl 120 mg 11/06/18 10:00 11/06/18 09:48 Cardizem Cd - PO 120 mg DAILY ROSEANNE Administration Docusate Sodium 200 mg 11/05/18 22:00 11/05/18 22:14 Colace - PO Not Given HS ROSEANNE Furosemide 40 mg 11/06/18 10:00 11/06/18 11:20 Lasix Injection - IVPUSH 40 mg DAILY ROSEANNE Administration Timolol Maleate 1 drop 11/05/18 22:00 11/06/18 15:33 Timoptic 0.5% OU 1 drop BID ROSEANNE Administration
[2018-11-05] MEDS ORDERED: ACETAMINOPHEN 325 MG TABLET (FP) PO ONE (18:15)
[2018-11-05 18:18] LABS: URINE APPEARANCE CLEAR; URINE BILIRUBIN NEGATIVE (<2.0 mg/dL); URINE COLOR STRAW; URINE GLUCOSE (UA) NEGATIVE (NEGATIVE); URINE KETONE NEGATIVE (NEGATIVE); URINE LEUK ESTERASE NEGATIVE (NEGATIVE); URINE NITRITE NEGATIVE (NEGATIVE); URINE PROTEIN NEGATIVE (NEGATIVE); URINE UROBILINOGEN NEGATIVE mg/dL (0.2-1.0)
[2018-11-05] MEDS ORDERED: ACETAMINOPHEN 325 MG TABLET (FP) ONE (18:50)
[2018-11-05] MEDS ORDERED: DIGOXIN 0.125 MG TABLET (FP) ONE (18:51)
[2018-11-05] MEDS: DIGOXIN 0.125 MG TABLET (FP) PO SCH (19:00)
[2018-11-05] MEDS ORDERED: ATORVASTATIN CA 10 MG TABLET (FP) ONE (22:10)
[2018-11-05] MEDS: TIMOLOL 0.5% OPHTHALMIC SOL 5 ML BOTTLE OU SCH (22:14)
[2018-11-05] MEDS: DOCUSATE SODIUM 100 MG CAPSULE (FP) PO SCH (22:14)
[2018-11-05] MEDS: ATORVASTATIN CA 10 MG TABLET (FP) PO SCH (22:14)
[2018-11-06] MEDS ORDERED: dilTIAZem HCL 50 MG/10 ML - 10 ML VIAL IVPUSH ONE ×2 (05:57→06:23)
[2018-11-06] MEDS ORDERED: dilTIAZem HCL 125 MG/25 ML - 25 ML VIAL ONE ×2 (05:59→06:26)
[2018-11-06] MEDS ORDERED: dilTIAZem HCL 30 MG TABLET (FP) PO ONE (06:28)
[2018-11-06] MEDS ORDERED: dilTIAZem HCL 30 MG TABLET (FP) ONE (06:30)
--- NOTE | 2018-11-06 06:30 | PDOC ---
*Physical Exam - Vital Signs Last Vital Signs Temp Pulse Resp BP Pulse Ox 98.3 F 82 17 130/90 100 11/05/18 11:45 11/06/18 06:06 11/06/18 05:30 11/06/18 05:30 11/06/18 05:30 ED Treatment Course - LABORATORY CBC & Chemistry Diagram: 11/06/18 Unknown 11/06/18 06:29 - ADDITIONAL ORDERS Additional order review: 11/05/18 13:20 RBC 3.19 L MCV 87.8 MCHC 31.3 L RDW 18.4 H MPV 7.7 Neutrophils % 54.7 D Lymphocytes % 18.6 Monocytes % 25.0 H D Eosinophils % 1.1 D Basophils % 0.6 - Medications Given in the ED: ED Medications Discontinued Medications Generic Name Dose Route Start Last Admin Trade Name Freq PRN Reason Stop Dose Admin Acetaminophen 650 mg 11/05/18 18:15 11/05/18 19:00 Tylenol - PO 11/05/18 18:16 650 mg ONCE ONE Administration Diltiazem HCl 10 mg 11/06/18 05:57 11/06/18 06:06 Cardizem Injection - IVPUSH 11/06/18 05:58 10 mg ONCE ONE Administration Furosemide 40 mg 11/05/18 15:15 11/05/18 15:38 Lasix Injection - IVPUSH 11/05/18 15:16 40 mg ONCE ONE Administration Medical Decision Making - Critical Care Time Total Critical Care Time (minutes): 45 Critical Care Statement: The care of this patient involved high complexity decision making to prevent further life threatening deterioration of the patient 's condition and/or to evaluate & treat vital organ system(s) failure or risk of failure. - Medical Decision Making 11/06/18 06:28 I was called to bedside at approx 5:45am for tachycardia. Pt found to have HR in 150s, BP stable. EKG done, shows SVT vs a-flutter with 2:1 conduction. Given pt's h/o afib, I ordered diltiazem 10mg IV. Pt subsequently slowed to HR 80s. Diltiazem 30mg PO given for sustained rate control. Repeat EKG ordered *DC/Admit/Observation/Transfer Diagnosis at time of Disposition: Acute on chronic diastolic (congestive) heart failure - Discharge Dispostion Condition at time of disposition: Stable - Referrals - Patient Instructions - Post Discharge Activity
[2018-11-06 08:13] LABS: ALBUMIN 2.8 g/dl (3.4-5.0); ALK PHOS 101 U/L (45-117); ANION GAP 6 MMOL/L (8-16); BILIRUBIN,TOTAL 1.7 mg/dL (0.2-1); BLOOD UREA NITROGEN 18 mg/dL (7-18); CALCIUM 8.8 mg/dL (8.5-10.1); CHLORIDE 100 mmol/L (98-107); CO2 33 mmol/L (21-32); CREATININE 0.9 mg/dL (0.55-1.3); GLUCOSE,RANDOM 89 mg/dL (74-106); POTASSIUM 4.1 mmol/L (3.5-5.1); SGOT/AST 14 U/L (15-37); SGPT/ALT 11 U/L (13-61); SODIUM 139 mmol/L (136-145); TOT PROT 5.8 g/dl (6.4-8.2)
[2018-11-06 08:41] LABS: BASO % 0.5 % (0-2.0); EOS % 0.2 % (0-4.5); HEMOGLOBIN 9.9 GM/dL (10.7-15.3); LYMPH % 11.6 % (8-40); MCH 28.8 pg (25.7-33.7); MEAN CELL VOLUME 87.2 fl (80-96); MEAN PLT VOLUME 7.4 fl (7.5-11.1); MONO % 19.2 % (3.8-10.2); NEUT % 68.5 % (42.8-82.8); PLATELET COUNT 369 K/MM3 (134-434); RBC 3.44 M/mm3 (3.60-5.2); RDW 18.9 % (11.6-15.6); WHITE BLOOD COUNT 7.7 K/mm3 (4.0-10.0)
[2018-11-06] MEDS ORDERED: PT OWN MED DRAWER 7, Y5N ONE ×4 (09:42→21:07)
[2018-11-06] MEDS: ALLOPURINOL 100 MG TABLET (FP) PO SCH (09:49)
--- NOTE | 2018-11-06 09:59 | EKG ---
Test Reason : Blood Pressure : / mmHG Vent. Rate : 102 BPM Atrial Rate : 110 BPM P-R Int : 000 ms QRS Dur : 106 ms QT Int : 330 ms P-R-T Axes : 000 -44 125 degrees QTc Int : 430 ms ATRIAL FIBRILLATION WITH RAPID VENTRICULAR RESPONSE LEFT AXIS DEVIATION ANTEROLATERAL INFARCT (CITED ON OR BEFORE 18-AUG-2018) ABNORMAL ECG WHEN COMPARED WITH ECG OF 05-NOV-2018 12:41, NO SIGNIFICANT CHANGE WAS FOUND Confirmed by Osito Bower MD ([id number]) on 11/06/2018 9:58:53 AM Referred By: Confirmed By:Osito Bower MD
--- NOTE | 2018-11-06 10:00 | EKG ---
Test Reason : Blood Pressure : / mmHG Vent. Rate : 157 BPM Atrial Rate : 157 BPM P-R Int : 000 ms QRS Dur : 098 ms QT Int : 240 ms P-R-T Axes : 000 -53 179 degrees QTc Int : 388 ms ATRIAL FLUTTER WITH 2 TO 1 BLOCK LEFT AXIS DEVIATION MARKED ST ABNORMALITY, POSSIBLE INFERIOR SUBENDOCARDIAL INJURY ABNORMAL ECG WHEN COMPARED WITH ECG OF 05-NOV-2018 12:41, atrial flutter has replaced atrial fibrillation. Confirmed by Osito Bower MD ([id number]) on 11/06/2018 9:59:51 AM Referred By: Confirmed By:Osito Bower MD
--- NOTE | 2018-11-06 10:04 | EKG ---
Test Reason : Blood Pressure : / mmHG Vent. Rate : 087 BPM Atrial Rate : 104 BPM P-R Int : 000 ms QRS Dur : 108 ms QT Int : 350 ms P-R-T Axes : 000 -40 120 degrees QTc Int : 421 ms ATRIAL FIBRILLATION LEFT AXIS DEVIATION ANTEROLATERAL INFARCT (CITED ON OR BEFORE 18-AUG-2018) ABNORMAL ECG Confirmed by Osito Bower MD [id number]) on 11/06/2018 10:04:20 AM Referred By: Confirmed By:Osito Bower MD
[2018-11-06] MEDS: FUROSEMIDE 40 MG/4 ML INJECTABLE VIAL IVPUSH SCH (11:20)
[2018-11-06] MEDS: TIMOLOL 0.5% OPHTHALMIC SOL 5 ML BOTTLE OU SCH ×2 (15:33→21:14)
--- NOTE | 2018-11-06 16:07 | CON.CARD ---
Consult Consult Specialty:: cardiology Reason for Consultation:: shortness of breath; AF - History of Present Illness History of Present Illness: 88 year old female with a history of afib (on eliquis), systolic/diastolic CHF, HTN, HLD, gout, glaucoma, osteoarthritis with knee pains and reduced mobility, who presents from [facility] because of increased oxygen requirement. The patient usually requires 2L NC at night but has been needing 4L nc during the day for the past 1 day. The patient has been coughing for two days productive of yellow and clear phlegm. The nursing staff notified the son that the patient's legs had been getting more swollen. The patient complains of some chronic intermittent suprapubic abdominal but denies chest pain, new abdominal pain, dysuria, hematuria or fever. The patient is compliant with all medications. - History Source History Provided By: Patient, Family Member, Medical Record Limitations to Obtaining History: No Limitations - Past Medical History Cardio/Vascular: Yes: AFIB (New onset), CHF (diastolic CHF per records), HTN, Hyperlipdemia Musculoskeletal: Yes: Osteoarthritis Additional Medical History: Glaucoma - Past Surgical History Past Surgical History: Yes: Hysterectomy - Alcohol/Substance Use Hx Alcohol Use: No History of Substance Use: reports: None - Smoking History Smoking history: Never smoked Have you smoked in the past 12 months: No Aproximately how many cigarettes per day: 0 Home Medications - Allergies Allergies/Adverse Reactions: Allergies Allergy/AdvReac Type Severity Reaction Status Date / Time amoxicillin Allergy Verified 11/05/18 11:47 - Home Medications Home Medications: Ambulatory Orders Simvastatin 20 mg PO HS 04/10/17 Timolol 0.5% [Timoptic 0.5%] 1 drop OU BID 04/10/17 Apixaban [Eliquis] 2.5 mg PO BID #28 tablet 04/14/17 Ropinirole HCl [Requip -] 1 mg PO DAILY #30 tablet 08/22/18 Acetaminophen [Extra Strength Non-Aspirin] 500 mg PO Q8H PRN 10/03/18 Allopurinol [Zyloprim -] 100 mg PO DAILY 10/03/18 Bethanechol Chloride [Bethanechol Chloride -] 25 mg PO QID 10/03/18 Collagenase Clostridium Hist. [Santyl -] 1 applic TP DAILY 10/03/18 Docusate Sodium [Colace] 200 mg PO HS 10/03/18 Lactobacillus Acidophilus [Bacid -] 1 each PO DAILY 10/03/18 Sennosides [Senna] 2 tab PO HS 10/03/18 Digoxin [Lanoxin -] 0.125 mg PO Q48H tablet 10/09/18 Diltiazem Cd [Cardizem Cd -] 120 mg PO DAILY cap.cd.24h 10/09/18 Metoprolol Tartrate [Lopressor -] 75 mg PO BID tablet 10/09/18 Levothyroxine [Synthroid -] 25 mcg PO DAILY 11/05/18 Polyethylene Glycol 3350 [Miralax (For Daily Use) -] 17 gm PO BID 11/05/18 Tramadol HCl 50 mg PO HS 11/05/18 Vital Signs: Vital Signs Temperature 97.3 F L 11/06/18 14:00 Pulse Rate 78 11/06/18 14:00 Respiratory Rate 20 11/06/18 14:00 Blood Pressure 119/66 11/06/18 14:00 O2 Sat by Pulse Oximetry (%) 100 11/06/18 06:48 - Other Data Labs, Other Data: CBC, BMP 11/06/18 Unknown 11/06/18 06:29 INR, PTT INR 1.41 (0.83-1.09) H 11/05/18 13:20 Troponin, BNP 11/05/18 20:00 Troponin I < 0.02 Troponin, BNP 11/05/18 20:00 Troponin I < 0.02 Problem List - Problems (1) Acute on chronic systolic and diastolic heart failure, NYHA class 1 Code(s): I50.43 - ACUTE ON CHRONIC COMBINED SYSTOLIC AND DIASTOLIC HRT FAIL (2) Atrial fibrillation with RVR Assessment/Plan: On diltiazem and digoxin (check the digoxin level, and keep it 0.5-1.0). Resdtart PO metoprolol. F/u HR and BP. ?not on anticoagulation due to prior GI bleed. Code(s): I48.91 - UNSPECIFIED ATRIAL FIBRILLATION (3) Back pain Code(s): M54.9 - DORSALGIA, UNSPECIFIED (4) History of dyspnea Code(s): Z87.09 - PERSONAL HISTORY OF OTHER DISEASES OF THE RESPIRATORY SYSTEM (5) Pulmonary HTN Code(s): I27.20 - PULMONARY HYPERTENSION, UNSPECIFIED (6) Osteoarthritis Code(s): M19.90 - UNSPECIFIED OSTEOARTHRITIS, UNSPECIFIED SITE Qualifiers:
--- NOTE | 2018-11-06 18:00 | PN ---
Progress Note, Physician - Current Medication List Current Medications: Active Medications Allopurinol (Zyloprim -) 100 mg PO DAILY [facility] Last Admin: 11/06/18 09:49 Dose: 100 mg Atorvastatin Calcium (Lipitor -) 10 mg PO [facility] Last Admin: 11/05/18 22:14 Dose: 10 mg Digoxin (Lanoxin -) 0.125 mg PO Q48H [facility] Last Admin: 11/05/18 19:00 Dose: 0.125 mg Diltiazem HCl (Cardizem Cd -) 120 mg PO DAILY [facility] Last Admin: 11/06/18 09:48 Dose: 120 mg Docusate Sodium (Colace -) 200 mg PO [facility] Last Admin: 11/05/18 22:14 Dose: Not Given Furosemide (Lasix Injection -) 40 mg IVPUSH DAILY [facility] Last Admin: 11/06/18 11:20 Dose: 40 mg Timolol Maleate (Timoptic 0.5%) 1 drop OU BID [facility] Last Admin: 11/06/18 15:33 Dose: 1 drop - Objective Vital Signs: Vital Signs Temperature 98.1 F 11/06/18 16:29 Pulse Rate 78 11/06/18 16:29 Respiratory Rate 20 11/06/18 16:29 Blood Pressure 121/67 11/06/18 16:29 O2 Sat by Pulse Oximetry (%) 100 11/06/18 16:29 Constitutional: Yes: No Distress HENT: Yes: Atraumatic Neck: Yes: Supple Cardiovascular: Yes: Regular Rate and Rhythm Respiratory: Yes: CTA Bilaterally Gastrointestinal: Yes: Normal Bowel Sounds Extremities: Yes: WNL Edema: No Peripheral Pulses WNL: Yes Neurological: Yes: Alert, Oriented Labs: CBC, BMP 11/06/18 Unknown 11/06/18 06:29 INR, PTT INR 1.41 (0.83-1.09) H 11/05/18 13:20 Problem List - Problems (1) Acute on chronic diastolic (congestive) heart failure Assessment/Plan: iv lasix continue home meds Code(s): I50.33 - ACUTE ON CHRONIC DIASTOLIC (CONGESTIVE) HEART FAILURE (2) Atrial fibrillation with RVR Assessment/Plan: continue meds Code(s): I48.91 - UNSPECIFIED ATRIAL FIBRILLATION (3) Chronic kidney disease Assessment/Plan: monitor Code(s): N18.9 - CHRONIC KIDNEY DISEASE, UNSPECIFIED Qualifiers: (4) HTN (hypertension) Assessment/Plan: monitor on meds Code(s): I10 - ESSENTIAL (PRIMARY) HYPERTENSION Qualifiers: (5) Hypercholesterolemia Code(s): E78.00 - PURE HYPERCHOLESTEROLEMIA, UNSPECIFIED (6) Osteoarthritis Code(s): M19.90 - UNSPECIFIED OSTEOARTHRITIS, UNSPECIFIED SITE Qualifiers:
[2018-11-06] MEDS ORDERED: METOPROLOL TARTRATE 25 MG TABLET (FP) PO ONE (18:30)
[2018-11-06] MEDS: ATORVASTATIN CA 10 MG TABLET (FP) PO SCH (21:14)
[2018-11-06] MEDS: DOCUSATE SODIUM 100 MG CAPSULE (FP) PO SCH (21:16)
[2018-11-07] MEDS ORDERED: PT OWN MED DRAWER 7, Y5N ONE ×4 (03:38→20:12)
[2018-11-07] MEDS: METOPROLOL TARTRATE 25 MG TABLET (FP) PO SCH ×2 (09:49→21:29)
[2018-11-07] MEDS: ALLOPURINOL 100 MG TABLET (FP) PO SCH (09:49)
[2018-11-07] MEDS: FUROSEMIDE 40 MG/4 ML INJECTABLE VIAL IVPUSH SCH (09:49)
[2018-11-07] MEDS: TIMOLOL 0.5% OPHTHALMIC SOL 5 ML BOTTLE OU SCH ×2 (09:49→21:29)
--- NOTE | 2018-11-07 11:06 | PN ---
Progress Note, Physician History of Present Illness: -88 year old female with a history of afib (on eliquis), systolic/diastolic CHF , HTN, HLD, gout, glaucoma, osteoarthritis with knee pains and reduced mobility, who presents from [facility] because of increased oxygen requirement. The patient usually requires 2L NC at night but has been needing 4L nc during the day for the past 1 day. The patient has been coughing for two days productive of yellow and clear phlegm. The nursing staff notified the son that the patient's legs had been getting more swollen. The patient complains of some chronic intermittent suprapubic abdominal but denies chest pain, new abdominal pain, dysuria, hematuria or fever. The patient is compliant with all medications. - Current Medication List Current Medications: Active Medications Allopurinol (Zyloprim -) 100 mg PO DAILY [facility] Last Admin: 11/07/18 09:49 Dose: 100 mg Atorvastatin Calcium (Lipitor -) 10 mg PO HS [facility] Last Admin: 11/06/18 21:14 Dose: 10 mg Digoxin (Lanoxin -) 0.125 mg PO Q48H [facility] Last Admin: 11/05/18 19:00 Dose: 0.125 mg Diltiazem HCl (Cardizem Cd -) 120 mg PO DAILY [facility] Last Admin: 11/07/18 09:49 Dose: 120 mg Docusate Sodium (Colace -) 200 mg PO HS [facility] Last Admin: 11/06/18 21:16 Dose: 200 mg Furosemide (Lasix Injection -) 40 mg IVPUSH DAILY [facility] Last Admin: 11/07/18 09:49 Dose: 40 mg Metoprolol Tartrate (Lopressor -) 25 mg PO BID [facility] Last Admin: 11/07/18 09:49 Dose: 25 mg Timolol Maleate (Timoptic 0.5%) 1 drop OU BID [facility] Last Admin: 11/07/18 09:49 Dose: 1 drop - Objective Vital Signs: Vital Signs Temperature 97.7 F 11/07/18 09:56 Pulse Rate 120 H 11/07/18 09:56 Respiratory Rate 20 11/07/18 09:56 Blood Pressure 125/71 11/07/18 09:56 O2 Sat by Pulse Oximetry (%) 100 11/06/18 21:00 Eyes: Yes: WNL, Conjunctiva Clear, EOM Intact HENT: Yes: WNL, Atraumatic, Normocephalic Neck: Yes: WNL, Supple, Trachea Midline Cardiovascular: Yes: WNL, Pulse Irregular Respiratory: Yes: WNL, Regular, CTA Bilaterally Gastrointestinal: Yes: WNL, Normal Bowel Sounds Genitourinary: Yes: WNL Musculoskeletal: Yes: WNL Extremities: Yes: WNL Edema: No Integumentary: Yes: WNL Neurological: Yes: WNL, Alert, Oriented ...Motor Strength: WNL Psychiatric: Yes: WNL Labs: CBC, BMP 11/06/18 Unknown 11/06/18 06:29 INR, PTT INR 1.41 (0.83-1.09) H 11/05/18 13:20 Assessment/Plan - Problems (1) Acute on chronic systolic and diastolic heart failure, NYHA class 1 Code(s): I50.43 - ACUTE ON CHRONIC COMBINED SYSTOLIC AND DIASTOLIC HRT FAIL (2) Atrial fibrillation with RVR Assessment/Plan: On diltiazem and digoxin (check the digoxin level, and keep it 0.5-1.0). Resdtart PO metoprolol. F/u HR and BP. ?not on anticoagulation due to prior GI bleed. Code(s): I48.91 - UNSPECIFIED ATRIAL FIBRILLATION (3) Back pain Code(s): M54.9 - DORSALGIA, UNSPECIFIED (4) History of dyspnea Code(s): Z87.09 - PERSONAL HISTORY OF OTHER DISEASES OF THE RESPIRATORY SYSTEM (5) Pulmonary HTN Code(s): I27.20 - PULMONARY HYPERTENSION, UNSPECIFIED (6) Osteoarthritis Code(s): M19.90 - UNSPECIFIED OSTEOARTHRITIS, UNSPECIFIED SITE Qualifiers:
--- NOTE | 2018-11-07 15:43 | ECHO ---
Name: EZEQUIEL MENDEZ Exam:Adult Echocardiogram Study Date: 11/07/2018 12:06 PM Age: 88 yrs Reason For Study: LVEF Height: 62 in Weight: 138 lb BSA: 1.6 m2 MMode/2D Measurements & Calculations IVSd: 0.84 cm Ao root diam: 2.6 cm LVIDd: 4.9 cm LA dimension: 3.9 cm LVIDs: 3.1 cm LVPWd: 0.71 cm EDV(Teich): 110.8 ml TAPSE: 2.3 cm ESV(Teich): 37.2 ml Doppler Measurements & Calculations MV E max fabián: 102.7 cm/sec Ao V2 max: 161.6 cm/sec MV A max fabián: 38.0 cm/sec Ao max P.4 mmHg MV E/A: 2.7 MV dec time: 0.21 sec LV V1 max P.3 mmHg MR max fabián: 406.1 cm/sec LV V1 max: 90.8 cm/sec MR max P.0 mmHg TR max fabián: 247.7 cm/sec PI end-d fabián: 145.2 cm/sec TR max P.8 mmHg Med Peak E' Fabián: 4.7 cm/sec Med E/e': 21.9 Lat Peak E' Fabián: 5.9 cm/sec Lat E/e': 17.4 Procedure A two-dimensional transthoracic echocardiogram with color flow and Doppler was performed. Left Ventricle The left ventricular size, thickness and function are normal. The left ventricular ejection fraction is normal. The left ventricular wall motion is normal. Right Ventricle The right ventricle is normal in size and function. Atria The left atrium is mildly dilated. The right atrium is mildly dilated. Mitral Valve The mitral valve is not well visualized. There is no mitral valve stenosis. There is mild to moderate mitral regurgitation. Tricuspid Valve There is mild tricuspid valve thickening. There is no tricuspid stenosis. There is mild tricuspid regurgitation. Right ventricular systolic pressure is normal. Aortic Valve The aortic valve is trileaflet. There is mild aortic valve thickening. No hemodynamically significant valvular aortic stenosis. No aortic regurgitation is present. Pulmonic Valve The pulmonic valve is not well visualized. There is no pulmonic valvular stenosis. Trace pulmonic leona vular regurgitation. Great Vessels The aortic root is normal size. Pericardium/Pleura There is a mild pericardial effusion. Interpretation Summary The left ventricular size, thickness and function are normal The left ventricular ejection fraction is normal. The left ventricular wall motion is normal. The left atrium is mildly dilated. The right atrium is mildly dilated. The aortic valve is trileaflet. There is mild aortic valve thickening. There is mild tricuspid regurgitation. Right ventricular systolic pressure is normal. There is mild to moderate mitral regurgitation. There is a mild pericardial effusion. MD Chintan Arrington 11/07/2018 03:43 PM
[2018-11-07] MEDS: DIGOXIN 0.125 MG TABLET (FP) PO SCH (18:33)
--- NOTE | 2018-11-07 18:37 | PN ---
Progress Note, Physician - Current Medication List Current Medications: Active Medications Allopurinol (Zyloprim -) 100 mg PO DAILY [facility] Last Admin: 11/07/18 09:49 Dose: 100 mg Atorvastatin Calcium (Lipitor -) [address] [facility] Last Admin: 11/06/18 21:14 Dose: 10 mg Digoxin (Lanoxin -) 0.125 mg PO Q48H [facility] Last Admin: 11/05/18 19:00 Dose: 0.125 mg Diltiazem HCl (Cardizem Cd -) 120 mg PO DAILY [facility] Last Admin: 11/07/18 09:49 Dose: 120 mg Docusate Sodium (Colace -) 200 mg PO HS [facility] Last Admin: 11/06/18 21:16 Dose: 200 mg Furosemide (Lasix Injection -) 40 mg IVPUSH DAILY [facility] Last Admin: 11/07/18 09:49 Dose: 40 mg Levofloxacin (Levaquin -) 250 mg PO DAILY@0600 [facility] Metoprolol Tartrate (Lopressor -) 25 mg PO BID [facility] Last Admin: 11/07/18 09:49 Dose: 25 mg Timolol Maleate (Timoptic 0.5%) 1 drop OU BID [facility] Last Admin: 11/07/18 09:49 Dose: 1 drop - Objective Vital Signs: Vital Signs Temperature 97.5 F L 11/07/18 13:43 Pulse Rate 94 H 11/07/18 13:43 Respiratory Rate 18 11/07/18 13:43 Blood Pressure 135/64 11/07/18 13:43 O2 Sat by Pulse Oximetry (%) 100 11/07/18 10:00 HENT: Yes: Atraumatic Neck: Yes: Supple Cardiovascular: Yes: Regular Rate and Rhythm Respiratory: Yes: CTA Bilaterally Gastrointestinal: Yes: Normal Bowel Sounds Extremities: Yes: WNL Edema: No Peripheral Pulses WNL: Yes Neurological: Yes: Alert, Oriented Labs: CBC, BMP 11/06/18 Unknown 11/06/18 06:29 INR, PTT INR 1.41 (0.83-1.09) H 11/05/18 13:20 Problem List - Problems (1) Acute on chronic diastolic (congestive) heart failure Assessment/Plan: iv lasix continue home meds Code(s): I50.33 - ACUTE ON CHRONIC DIASTOLIC (CONGESTIVE) HEART FAILURE (2) Atrial fibrillation with RVR Assessment/Plan: continue meds Code(s): I48.91 - UNSPECIFIED ATRIAL FIBRILLATION (3) Chronic kidney disease Assessment/Plan: monitor Code(s): N18.9 - CHRONIC KIDNEY DISEASE, UNSPECIFIED Qualifiers: (4) HTN (hypertension) Assessment/Plan: monitor on meds Code(s): I10 - ESSENTIAL (PRIMARY) HYPERTENSION Qualifiers: (5) Hypercholesterolemia Code(s): E78.00 - PURE HYPERCHOLESTEROLEMIA, UNSPECIFIED (6) Osteoarthritis Code(s): M19.90 - UNSPECIFIED OSTEOARTHRITIS, UNSPECIFIED SITE Qualifiers:
--- NOTE | 2018-11-07 18:41 | DS ---
Physical Examination Vital Signs: Vital Signs Temperature 97.5 F L 11/07/18 13:43 Pulse Rate 127 H 11/07/18 18:33 Respiratory Rate 18 11/07/18 13:43 Blood Pressure 135/64 11/07/18 13:43 O2 Sat by Pulse Oximetry (%) 100 11/07/18 10:00 Labs: CBC, BMP 11/06/18 Unknown 11/06/18 06:29 Discharge Summary Reason For Visit: ACUTE ON CHRONIC DIASTOLIC CHF Current Active Problems Acute on chronic diastolic (congestive) heart failure (Acute) Pulmonary HTN (Acute) Condition: Stable - Instructions Referrals: Karime Fernando MD [Primary Care Provider] - - Home Medications Comprehensive Discharge Medication List: Ambulatory Orders Simvastatin 20 mg PO HS 04/10/17 Timolol 0.5% [Timoptic 0.5%] 1 drop OU BID 04/10/17 Apixaban [Eliquis] 2.5 mg PO BID #28 tablet 04/14/17 Ropinirole HCl [Requip -] 1 mg PO DAILY #30 tablet 08/22/18 Acetaminophen [Extra Strength Non-Aspirin] 500 mg PO Q8H PRN 10/03/18 Allopurinol [Zyloprim -] 100 mg PO DAILY 10/03/18 Bethanechol Chloride [Bethanechol Chloride -] 25 mg PO QID 10/03/18 Collagenase Clostridium Hist. [Santyl -] 1 applic TP DAILY 10/03/18 Docusate Sodium [Colace] 200 mg PO HS 10/03/18 Lactobacillus Acidophilus [Bacid -] 1 each PO DAILY 10/03/18 Sennosides [Senna] 2 tab PO HS 10/03/18 Digoxin [Lanoxin -] 0.125 mg PO Q48H tablet 10/09/18 Diltiazem Cd [Cardizem Cd -] 120 mg PO DAILY cap.cd.24h 10/09/18 Metoprolol Tartrate [Lopressor -] 75 mg PO BID tablet 10/09/18 Levothyroxine [Synthroid -] 25 mcg PO DAILY 11/05/18 Polyethylene Glycol 3350 [Miralax (For Daily Use) -] 17 gm PO BID 11/05/18 Tramadol HCl 50 mg PO HS 11/05/18 Levofloxacin [Levaquin] 250 mg PO DAILY #4 tablet 11/07/18 Metoprolol Tartrate [Lopressor -] 25 mg PO BID tablet 11/07/18
[2018-11-07] MEDS: DOCUSATE SODIUM 100 MG CAPSULE (FP) PO SCH (21:28)
[2018-11-07] MEDS: ATORVASTATIN CA 10 MG TABLET (FP) PO SCH (21:29)
[2018-11-08] MEDS ORDERED: PT OWN MED DRAWER 7, Y5N ONE ×2 (07:05→10:40)
[2018-11-08] MEDS: FUROSEMIDE 40 MG/4 ML INJECTABLE VIAL IVPUSH SCH (10:56)
[2018-11-08] MEDS: TIMOLOL 0.5% OPHTHALMIC SOL 5 ML BOTTLE OU SCH (10:56)
[2018-11-08] MEDS: ALLOPURINOL 100 MG TABLET (FP) PO SCH (10:56)
[2018-11-08] MEDS: METOPROLOL TARTRATE 25 MG TABLET (FP) PO SCH (10:56)
[2018-11-08 15:22] VITALS: BP 142/74; TEMP 98.8
--- NOTE | 2018-11-08 16:05 | DS ---
Physical Examination Vital Signs: Vital Signs Temperature 98.8 F 11/08/18 14:00 Pulse Rate 108 H 11/08/18 14:00 Respiratory Rate 16 11/08/18 14:00 Blood Pressure 142/74 11/08/18 14:00 O2 Sat by Pulse Oximetry (%) 100 11/07/18 21:00 Constitutional: Yes: No Distress HENT: Yes: Atraumatic Neck: Yes: Supple Cardiovascular: Yes: Regular Rate and Rhythm Respiratory: Yes: CTA Bilaterally, Rhonchi Gastrointestinal: Yes: Normal Bowel Sounds Extremities: Yes: WNL Edema: No Neurological: Yes: Alert, Oriented Labs: CBC, BMP 11/06/18 Unknown 11/06/18 06:29 Discharge Summary Reason For Visit: ACUTE ON CHRONIC DIASTOLIC CHF Current Active Problems Acute on chronic diastolic (congestive) heart failure (Acute) Pulmonary HTN (Acute) Condition: Stable - Instructions Diet, Activity, Other Instructions: 2l oxygen inhalation patient should see doctors at [facility] and cardiology dr bhakta next week to evaluate status Referrals: Karime Fernando MD [Primary Care Provider] - Disposition: [facility] FACILITY - Home Medications Comprehensive Discharge Medication List: Ambulatory Orders Simvastatin 20 mg PO HS 04/10/17 Timolol 0.5% [Timoptic 0.5%] 1 drop OU BID 04/10/17 Apixaban [Eliquis] 2.5 mg PO BID #28 tablet 04/14/17 Ropinirole HCl [Requip -] 1 mg PO DAILY #30 tablet 08/22/18 Acetaminophen [Extra Strength Non-Aspirin] 500 mg PO Q8H PRN 10/03/18 Allopurinol [Zyloprim -] 100 mg PO DAILY 10/03/18 Bethanechol Chloride [Bethanechol Chloride -] 25 mg PO QID 10/03/18 Collagenase Clostridium Hist. [Santyl -] 1 applic TP DAILY 10/03/18 Docusate Sodium [Colace] 200 mg PO HS 10/03/18 Lactobacillus Acidophilus [Bacid -] 1 each PO DAILY 10/03/18 Sennosides [Senna] 2 tab PO HS 10/03/18 Digoxin [Lanoxin -] 0.125 mg PO Q48H tablet 10/09/18 Diltiazem Cd [Cardizem Cd -] 120 mg PO DAILY cap.cd.24h 10/09/18 Metoprolol Tartrate [Lopressor -] 75 mg PO BID tablet 10/09/18 Levothyroxine [Synthroid -] 25 mcg PO DAILY 11/05/18 Polyethylene Glycol 3350 [Miralax (For Daily Use) -] 17 gm PO BID 11/05/18 Tramadol HCl 50 mg PO HS 11/05/18 Levofloxacin [Levaquin] 250 mg PO DAILY #4 tablet 11/07/18 Metoprolol Tartrate [Lopressor -] 25 mg PO BID tablet 11/07/18 Furosemide [Lasix] 40 mg PO DAILY #30 tablet 11/08/18 oxygen 2l nasal cannula dc snf
[2018-11-08 16:14] VITALS: PULSE 90
== END 2018-11-08 18:03 | DRG 291 ==
LOC: JER 11:44 → JERBED 15:25 → J4S 11-06 16:14
PROVIDERS: ADMIT Internal Medicine; ATTEND Internal Medicine
DX: I13.0 Hypertensive heart and chronic kidney disease with heart failure and stage 1 through stage 4 chronic kidney disease, or unspecified chronic kidney disease (principal); I50.33 Acute on chronic diastolic (congestive) heart failure; N18.9 Chronic kidney disease, unspecified; I48.91 Unspecified atrial fibrillation; I27.20 Pulmonary hypertension, unspecified; M10.9 Gout, unspecified; M19.90 Unspecified osteoarthritis, unspecified site; Z79.01 Long term (current) use of anticoagulants; F03.90 Unspecified dementia, unspecified severity, without behavioral disturbance, psychotic disturbance, mood disturbance, and anxiety; R13.10 Dysphagia, unspecified; E78.00 Pure hypercholesterolemia, unspecified; Z90.710 Acquired absence of both cervix and uterus
CPT/HCPCS: 36415; 71045-TC-FY; 80053; 80162; 81003; 81015; 82272; 82550; 82553; 83880; 84484; 85025; 85610; 85730; 87086; 87186; 93005; 93010; 93306-TC; 94761; 99285-25